=== PATIENT | female | born 1965 | race Caucasian/White ===

== ENCOUNTER → 2018-08-21 07:56 | Outpatient (CLI) | payer OTHER, SELFPAY ==
[2018-08-21 10:18] LABS: ALB/GLOB Ratio 1.2 RATIO (0.9-2.4); AST(SGOT) 23 U/L (15-37); Alanine Aminotransfer ALT/SGPT 54 U/L (13-56); Albumin, Serum 4.2 g/dL (3.2-5.0); Alkaline Phosphatase 75 U/L (45-117); Anion Gap 6 (5-15); BUN 17 mg/dL (7-18); BUN/Creat Ratio 21.7 RATIO (10-20); Calcium,Total 9.1 mg/dL (8.5-10.1); Chloride 105 mmol/L (98-107); Cholesterol 197 mg/dL (200); Creatinine, Serum 0.78 mg/dL (0.55-1.02); EST Glomerular Filtration Rate 81 mL/min (>60); Est Glom Filt Rate - Afr Amer 98 mL/min (>60); Globulin 3.5 g/dL (2.2-4.2); Glucose 92 mg/dL (74-106); High Density Lipoprotein 41 mg/dL; Potassium 3.9 mmol/L (3.5-5.1); Protein, Total 7.7 g/dL (6.4-8.2); Sodium Level 139 mmol/L (136-145); Triglycerides 243 mg/dL; Very Low Density Lipoprotein 49 mg/dL (5-40)
[2018-08-21 10:19] LABS: Hemoglobin A1c 5.9 % (4.2-6.3)
[2018-08-21 10:26] LABS: Microalbumin,Random Urine 6.2 mg/L (NO RANGE EST.)
== END ==
PROVIDERS: Family Provider Family Medicine; PCP Family Medicine; Referring Provider Family Medicine; Visit Provider Family Medicine
DX: E11.9 Type 2 diabetes mellitus without complications (principal); I10 Essential (primary) hypertension
CPT/HCPCS: 36415; 80053; 80061; 82043; 82570; 83036

== ENCOUNTER → 2018-09-12 10:02 | Outpatient (CLI) | payer OTHER, SELFPAY ==
--- NOTE | 2018-09-12 10:05 | BI_ITS ---
MAMMOGRAPHY - BILATERAL SCREENING REASON FOR EXAM: Female, 53 years old. Routine annual screening examination. PERTINENT HISTORY: Aunt with breast cancer. TECHNIQUE: Digital bilateral breast keyonna (3D mammographic acquisition) in the CC and MLO projections. 2-D mediolateral oblique (MLO) and craniocaudad (CC) views of both breasts were obtained. CAD: Full Field Digital Mammography with Computer Added Detection was performed. COMPARISON: Comparison is made with prior examination dated February 23, 2007. FINDINGS: Breast Composition: There are scattered areas of fibroglandular density. There are no dominant masses or suspicious calcifications. Stable appearance of a 6.9 mm well-defined nodule in the anterior superior lateral portion of the left breast with central decreased density suggestive of a small lymph node. Stable bilateral axillary lymph nodes. No other significant abnormalities are identified. BI/SCREENING MAMM (CAD), BILAT IMPRESSION: Stable bilateral screening mammogram. Yearly follow-up mammogram recommended. (A) ASSESSMENT CATEGORY: BIRADS Category 2: Benign. A letter regarding these results will be sent to the patient by the facility within 30 days. Approximately 10% of breast cancers are not detected by mammography. A normal mammogram should not delay biopsy of a clinically suspicious abnormality. [id number] Electronically Signed: Russ Holly MD at 14:22 EDT Tel [phone], Service support ,
== END ==
PROVIDERS: Family Provider Family Medicine; PCP Family Medicine; Referring Provider Family Medicine; Visit Provider Family Medicine
DX: Z12.31 Encounter for screening mammogram for malignant neoplasm of breast (principal)
CPT/HCPCS: 77063; 77067

== ENCOUNTER 2019-01-14 10:05 | Day surgery (SDC) | payer OTHER, SELFPAY ==
[2018-12-29 10:38] VITALS: BMI 25.1
[2019-01-14 10:31] VITALS: BP 149/97; PULSE 97; RESP 18; TEMP 36.3; O2SAT 99; BMI 24.4
[2019-01-14 10:57] LABS: Bedside Glucose 106 mg/dL (70-110)
--- NOTE | 2019-01-14 11:30 | IMM_PTH ---
PATIENT: PATRICK PHILIPPE LOC: EN U#:[id number] AGE/SX: 54/F ROOM: RE01/14/[address]: Dr. April Zeng MD : 1965 BED: DIS: 01/14/2019 SPEC #: [id number] RECD: 01/14/19 15:34 STATUS: LAKISHA REQ #: [id number] ALEJANDRA: 01/14/19 11:[address]: April Zeng DEPT: IMMUNOHISTOCHEMISTRY RECD BY: Milagros Marie ENTERED: 01/14/19 15:35 SP TYPE: IMMUNO OTHR DR: Dr. Bret Gomez MD Tissues: A - Stomach, NOS Procedures: H Pylori (initial) PHYSICIAN & INSTITUTION [place] [address] SPECIMEN INFORMATION: Tissue Source: A - Antrum biopsy Clinical Info: GERD, family history of colon CA Specimen Number: [id number] CPT code: 87401 METHODOLOGY: Deparaffinized sections of prefer/formalin-fixed tissue or PAP/DQ stained slides are incubated with monoclonal/polyclonal antibodies/oligonucleotide probes. Localization is made via biotin free immunoperoxidase method. Appropriate controls are performed and reacted as expected. Results on target cell population are indicated in the following table: RESULTS: ANTIBODY / CLONE RESULT Block A H Pylori (polyclonal) negative These tests were developed and their performance characteristics determined by [facility]. They may not have been cleared or approved by the U.S. Food and Drug Administration. The FDA has determined that such clearance or approval is not necessary. INTERPRETATION: A. Antrum biopsy: Negative for Helicobacter pylori organisms. SJ:ashly 01/15/19
--- NOTE | 2019-01-14 11:30 | EGD_PTH ---
PATIENT: PATRICK PHILIPPE LOC: EN U#:[id number] AGE/SX: 54/F ROOM: RE01/14/[address]: Dr. April Zeng MD : 1965 BED: DIS: 01/14/2019 SPEC #: [id number] RECD: 01/14/19 12:04 STATUS: LAKISHA YELENA #: [id number] ALEJANDRA: 01/14/19 11:[address]: April Zeng DEPT: SURGICAL PATHOLOGY RECD BY: Doyle Lyn ENTERED: 01/14/19 13:50 SP TYPE: EGD BIOPSY OT DR: Dr. Bret Gomez MD Tissues: A - Gastric mucous membrane B - Gastric mucous membrane C - Rectum, NOS D - Rectum, NOS Procedures: Special Stain Group II Surgery Specimen Level IV Alcian Blue/PAS (control) HEADER OPERATION: Colonoscopy, EGD ([facility] [place]) PRE-OP DIAGNOSIS: GERD, family history colon CA TISSUE SUBMITTED: A - Antrum biopsy for H. pylori and path, B - GE junction biopsy, C - Rectal polyp at 20 cm, D - Biopsy of rectal polyp #2 at 20 cm MICROSCOPIC DIAGNOSIS A. Antrum biopsy: Mild gastritis. See microscopic description and comment. B. GE junction, biopsy: A fragment of gastroesophageal mucosa with reactive changes. Intestinal metaplasia (goblet cell metaplasia) is not identified. See comment. C. Rectal polyp at 20 cm, biopsy: Tubular adenoma. D. Rectal polyp #2 at 20 cm, biopsy: Fragments of hyperplastic polyp. SJ:ashly 01/15/19 COMMENT A. The results of immunohistochemistry for Helicobacter pylori will be reported separately ([id number]). B. The specimen predominantly consists of squamous epithelium with a minute fragment of gastric mucosa. Alcian blue/PAS stain with matched control is used in the evaluation of the specimen. MICROSCOPIC DESCRIPTION Slides are reviewed. A. The specimen shows fragments of gastric mucosa with chronic inflammatory cell infiltrates in the lamina propria consisting of lymphocytes and plasma cells, consistent with mild chronic gastritis. GROSS DESCRIPTION A - Received in fixative is one container labeled with the patient's name and designated antral biopsy. The specimen consists of two irregular fragments of light le soft tissue that in aggregate measure 0.6 x 0.3 x 0.1 cm. The specimen is totally submitted in one cassette. B - Received in fixative is one container labeled with the patient's name and designated GE junction biopsy. The specimen consists of one irregular fragment of light le soft tissue that measures 0.4 x 0.3 x 0.1 cm. The specimen is totally submitted in one cassette. C - Received in fixative is one container labeled with the patient's name and designated rectal polyp. The specimen consists of a pink-red polyp measuring 1.2 x 1 x 0.6 cm. The apparent base is inked. The polyp is bisected and submitted entirely in one cassette. D - Received in fixative is one container labeled with the patient's name and designated biopsy of rectal polyp #2 at 20 cm. The specimen consists of multiple irregular fragments of light le soft tissue that in aggregate measure 1 x 0.4 x 0.1 cm. The specimen is totally submitted in one cassette. / MIKE:ashly 01/14/19 TC:1 CPT: 26382 x4, 14782
[2019-01-14 11:50] VITALS: BP 101/75; BP 149/97; PULSE 69; RESP 16; TEMP 36.2; O2SAT 100
--- NOTE | 2019-01-14 11:53 | OP.ENDO_ITS ---
01/14/2019 Bret Gomez [address] [place] [address] Re : Upper GI endoscopy procedure for Qi Irwin Dear Dr. Gomez This procedure was performed on December. My impressions and recommendations are as follows: Impressions : - Z-line irregular, 38 cm from the incisors. Biopsied. - 2 cm hiatal hernia. - Gastritis. Biopsied. - Normal examined duodenum. Recommendations : - Await pathology results. - Discharge patient to home. - Use Protonix (pantoprazole) 40 mg PO daily [duration]. OK to stop the ranitidine after a couple days of starting protonix. - Continue present medications. My findings are described in the full procedure note, which is enclosed. If I can be of further assistance, please feel free to contact me at Doctor phone number(s): , Work: . Sincerely, MD April Jesus MD 01/14/2019 11:52:33 AM This report has been signed electronically.
[2019-01-14 11:55] VITALS: BP 120/71; BP 149/97; PULSE 74; RESP 16; O2SAT 100
[2019-01-14 12:00] VITALS: BP 123/71; BP 149/97; PULSE 67; RESP 16; O2SAT 100
--- NOTE | 2019-01-14 12:01 | OP.ENDO_ITS ---
01/14/2019 Bret Gomez [address] [place] [address] Re : Colonoscopy procedure for Qi Irwin Dear Dr. Gomez This procedure was performed on December. My impressions and recommendations are as follows: Impressions : - One 10 mm polyp in the rectum, removed with a hot snare. Resected and retrieved. - One less than 5 mm polyp in the rectum, removed with a cold biopsy forceps. Resected and retrieved. - The examination was otherwise normal on direct and retroflexion views. Recommendations : - Discharge patient to home. - Await pathology results. - Repeat colonoscopy in 3 years for surveillance based on pathology results. - Continue present medications. My findings are described in the full procedure note, which is enclosed. If I can be of further assistance, please feel free to contact me at Doctor phone number(s): , Work: . Sincerely, MD April Jesus MD 01/14/2019 12:01:26 PM This report has been signed electronically.
[2019-01-14 12:05] VITALS: BP 126/79; BP 149/97; PULSE 69; RESP 16; TEMP 36.3; O2SAT 100
[2019-01-14 12:11] VITALS: BP 149/97
== END 2019-01-14 12:55 | disposition home or self-care (01) ==
LOC: EN 10:08 → AC 10:10
PROVIDERS: Family Provider Family Medicine; PCP Family Medicine; Referring Provider Surgery; Visit Provider Surgery
PROC: 0DJD8ZZ Inspection of Lower Intestinal Tract, Via Natural or Artificial Opening Endoscopic (ICD-10-PCS; CPT 45378; principal; 2019-01-14 11:25)
DX: K29.70 Gastritis, unspecified, without bleeding (principal); K44.9 Diaphragmatic hernia without obstruction or gangrene; K21.9 Gastro-esophageal reflux disease without esophagitis; D12.8 Benign neoplasm of rectum; K62.1 Rectal polyp; K57.30 Diverticulosis of large intestine without perforation or abscess without bleeding; I10 Essential (primary) hypertension; G25.81 Restless legs syndrome; E11.9 Type 2 diabetes mellitus without complications; F41.9 Anxiety disorder, unspecified; F32.9 Major depressive disorder, single episode, unspecified; Z78.0 Asymptomatic menopausal state; Z80.0 Family history of malignant neoplasm of digestive organs; Z79.84 Long term (current) use of oral hypoglycemic drugs; Z79.899 Other long term (current) drug therapy; Z87.891 Personal history of nicotine dependence
CPT/HCPCS: 43239; 45380; 45385; 82962; 88305; 88313; 88342; J7120

== ENCOUNTER 2019-09-18 20:55 | Emergency (ER) | payer OTHER, SELFPAY ==
[2019-09-18 20:55] VITALS: BP 161/91; PULSE 66; RESP 15; TEMP 36.4; O2SAT 93; BMI 25.5
--- NOTE | 2019-09-18 21:18 | CT_ITS ---
STUDY: CT ABDOMEN AND PELVIS WITH CONTRAST REASON FOR EXAM: Female, 54 years old. Right-sided abdominal pain nausea and diarrhea x1 week RADIATION DOSAGE (If Supplied By Facility): CTDIvol = ( 14.09 ) mGy, DLP = ( 735.34 ) mGycm TECHNIQUE: Transaxial images were obtained from the dome of the diaphragm to the symphysis pubis without oral contrast. IV 100mL [id number]-300 100ML was administered. Sagittal and coronal images were reconstructed. Individualized dose optimization techniques were used for this CT. COMPARISON: None. FINDINGS: There is a noncalcified nodule of the anterior right lower lobe measuring 4 mm, seen on image 8 of series 2. The visualized portions of the heart are within normal limits. Normal liver. Normal gallbladder and extrahepatic biliary system. Normal spleen. Normal pancreas. Normal bilateral adrenal glands. There is a subcentimeter right renal cyst. There is also a subcentimeter left renal cyst. Normal visualized stomach. Normal small intestine. There is scattered colonic diverticuli with no evidence of associated diverticulitis. The appendix is visualized and appears normal. There are calcified plaques of the abdominal aorta. Normal inferior vena cava. Normal retroperitoneum. Normal urinary bladder. There are large dense uterine calcifications consistent with degenerative fibroids. There is a small umbilical hernia containing fat. There are diffuse degenerative changes of the visualized thoracolumbar spine. CT/Abdomen/Pelvis W IV Cont ONLY IMPRESSION: 1. Noncalcified nodule of the anterior right lower lobe measuring 4 mm. Appropriate follow-up using Fleischner Society criteria is recommended. 2. Subcentimeter bilateral renal cysts. 3. Colonic diverticulosis with no evidence of associated diverticulitis. 4. Large dense uterine calcifications consistent with degenerative fibroids. 5. Small fat containing a follicle hernia. Electronically Signed: Jose Acosta MD at 22:16 EDT , Service support ,
--- NOTE | 2019-09-18 21:19 | ED.DCSUM_ITS ---
History of Present Illness Chief Complaint: Abd Pain Informant: Patient Onset: Days - 7 Context: Gradual Onset Timing: Continuous, Waxes and wanes Current Severity: Mild Maximum Severity: Moderate Narrative: Patient is evaluated for abdominal pain. She states been present for 1 week. It is an ache in her right upper quadrant but intermittently radiates across her abdomen and become sharp. She notes the pain is worse before she has a bowel movement. She is had associated diarrhea. She is had 3-4 episodes of diarrhea today. She denies any black or blood in her stool. She has associated nausea but no vomiting. She denies any associated chest pain, shortness of breath or urinary symptoms. She is menopausal. Patient denies any history of diverticulitis or pain like this before. She states she could not take it anymore it is why she came to the emergency room after week of symptoms. She states she has had decreased appetite but her symptoms are not affected by eating. Past Medical History - Allergies and Home Meds Allergies/Adverse Reactions: Allergies No Known Allergies Allergy (Verified 09/18/19 21:09) Primary Care Physician: Bret Gomez MD [Primary Care Provider] - Past Medical History: - - Hypertension, diabetes Surgical History: noncontributory, - - Left knee arthroscopic surgery Lives: Spouse/ Significant Other Smoking Status: Former smoker - Family History Maternal Family History: Family History (Last Updated 12/29/18 @ 10:37 by Kathy Flores) Mother Colon cancer CAD (coronary artery disease) Hypertension Aunt Colon cancer Family History: Reports: No pertinent history Paternal Family History: Family History (Last Updated 12/29/18 @ 10:37 by Kathy Flores) Mother Colon cancer CAD (coronary artery disease) Hypertension Aunt Colon cancer Family History: Reports: Heart Disease Review of Systems All systems negative except as indicated Gastrointestinal: Reports: Abdominal pain, Nausea, Diarrhea. Denies: Vomiting, Constipation Genitourinary: Denies: Dysuria Physical Exam Vital Signs/Narrative: Vital Signs Temp Pulse Resp BP Pulse Ox 09/18/19 20:55 97.5 F L 66 15 161/91 H 93 Inital Vital Signs reviewed: Yes General: Well nourished, Well developed, No Acute Distress Head: Normocephalic, Atraumatic Eyes: Perrl, EOMI ENT: Moist mucous membranes, No rhinorrhea Neck: Supple, Nontender Cardiovascular: Regular rate, Regular rhythm, No murmurs Respiratory: No distress, CTA bilaterally, Chest nontender Abdomen: Nontender, Nondistended, Tender - Mild, right upper quadrant, Hyp eractive bowel sounds. Negative for: Guarding, Rebound tenderness, Starkey's sign Back: Nontender, Normal Inspection. Negative for: CVA tenderness Extremities: Nontender, No edema Skin: Normal color, No rash Neurological: Alert, Oriented x3, Cranial nerves II-XII grossly intact, Normal Strength, Normal Sensation Psychological: Normal affect, Normal Mood Diagnostic/Tx/Re-eval Clinical Impression(s) from Imaging Studies Abdomen/Pelvis CT 09/18/19 21:18 IMPRESSION: 1. Noncalcified nodule of the anterior right lower lobe measuring 4 mm. Appropriate follow-up using Fleischner Society criteria is recommended. 2. Subcentimeter bilateral renal cysts. 3. Colonic diverticulosis with no evidence of associated diverticulitis. 4. Large dense uterine calcifications consistent with degenerative fibroids. 5. Small fat containing a follicle hernia. Electronically Signed: Jose Acosta MD at 22:16 EDT , Service support , Laboratory Data 09/18/19 09/18/19 09/18/19 21:15 21:15 22:05 WBC 8.1 RBC 4.94 Hgb 14.6 Hct 43.8 MCV 88.7 MCH 29.6 MCHC 33.3 RDW Std Deviation 37.2 RDW Coeff of Ollie 11.6 Plt Count 326 MPV 10.0 Immature Gran % (Auto) 0.200 Neut % (Auto) 54.6 Lymph % (Auto) 35.3 [place] % (Auto) 8.0 Eos % (Auto) 1.4 Baso % (Auto) 0.5 Absolute Neuts (auto) 4.4 Absolute Lymphs (auto) 2.86 Nucleated RBC % 0 Sodium 136 Potassium 3.8 Chloride 101 Carbon Dioxide 26.0 Anion Gap 9 BUN 14 Creatinine 0.87 Estim Creat Clear Calc 75.46 Est GFR (MDRD) Af Amer 87 Est GFR (MDRD) Non-Af 72 BUN/Creatinine Ratio 16.1 Glucose 105 Calcium 9.6 Total Bilirubin 0.60 Direct Bilirubin 0.11 AST 26 ALT 35 Alkaline Phosphatase 75 Total Protein 8.1 Albumin 4.6 Globulin 3.5 Lipase 144 Urine Color Yellow Urine Clarity Sl. Cloudy Urine pH 8.0 Ur Specific [place] 1.010 Urine Protein Negative Urine Glucose (UA) Normal Urine Ketones Negative Urine Occult Blood Negative Urine Nitrite Negative Urine Bilirubin Negative Urine Urobilinogen Normal Ur Leukocyte Esterase Negative Urine RBC 0 SEEN Urine WBC 0-5 SEEN Ur Squamous Epith Cells 0-5 SEEN Urine Bacteria 0 SEEN Urine Mucus 0 SEEN - Medical Decision Making Patient is evaluated for right upper quadrant abdominal pain and diarrhea. She appears nontoxic and in no acute distress. Vital signs are normal. Abdomen exam is relatively benign. She does actually have some tenderness over her right lateral lower ribs that is reproducible on palpation. CBC, CMP and UA are all normal. CT the abdomen and pelvis show some incidental findings but no acute infectious process. Patient is informed of lung nodule and need for routine outpatient follow-up. Patient expresses that she is very concerned that she might have an undiagnosed cancer as a cause of her symptoms. She is counseled that no obvious cancer is stable for outpatient follow-up. She is ins tructed to take [id number] Pepto-Bismol as needed for her diarrhea. I do not suspect an acutely infectious diarrhea she does not have any diarrhea while in the emergency room and has normal white blood cell count. More than likely her symptoms are viral. Patient is counseled on signs and symptoms requiring return to the emergency room. Patient verbalizes agreement and understand this plan. Patient discharged home in stable and improved condition. ED Disposition - Plan for ED Patient: Disposition: Home or Assisted Living Diagnosis: Right-sided chest wall pain, Abdominal pain, Diarrhea Instructions: Treating Diarrhea, ABDOMINAL PAIN, Unknown Cause, (Female), PULM ONARY NODULE, Solitary Prescriptions: Ondansetron [Zofran Odt] 4 mg PO Q8H PRN PRN #12 tab PRN Reason: Nausea Prescription Printed Referrals: Bret Gomez MD [Primary Care Provider] - Additional Instructions: The cause of your symptoms was not found today. Your lab work and CT looked normal. There was an incidental finding of a pulmonary nodule. This needs to be evaluated outpatient by your primary care doctor to follow and make sure that it does not turn into lung cancer. If your symptoms persist, you may also follow-up with your surgeon, Dr. Zeng, for further evaluation. Return to the emergency room if you develop worsening symptoms, fever or blood in your stool.
[2019-09-18] MEDS: 0.9% Normal Saline 1,000 ML 1000 ML IV (21:27)
[2019-09-18 21:32] LABS: Absolute Lymphocyte Count 2.86 X10^3/uL (0.83-4.51); Absolute Neutrophil Count 4.4 X10^3/uL (2.0-7.7); Basophil# 0.04 X10^3/uL; Basophil% 0.5 % (0-1); Eosinophil# 0.11 X10^3/uL; Eosinophils% 1.4 % (0-5); Hematocrit 43.8 % (37-47); Hemoglobin 14.6 g/dL (12.0-15.0); Lymphocyte # 2.86 X10^3/ul (4.0); Lymphocyte % 35.3 % (19-41); Mean Corp Hgb Conc 33.3 g/dL (32-36); Mean Corpuscular Hgb 29.6 pg (27.0-32.0); Mean Corpuscular Volume 88.7 fL (81-99); Monocyte# 0.65 X10^3/uL; NRBC Flagged by Analyzer 0 % (0-5); Neutrophil # 4.42 X10^3/uL (2.7-7.7); Neutrophil % 54.6 % (47-70); Platelet Count 326 K/mm3 (150-450); RBC Distribution Width CV 11.6 % (11.6-14.6); RBC Distribution Width SD 37.2 fl (35.1-43.9); Red Blood Count 4.94 M/mm3 (4.2-5.4); White Blood Count 8.1 K/mm3 (4.4-11.0)
[2019-09-18 21:59] LABS: AST(SGOT) 26 U/L (15-37); Alanine Aminotransfer ALT/SGPT 35 U/L (13-56); Albumin, Serum 4.6 g/dL (3.2-5.0); Alkaline Phosphatase 75 U/L (45-117); Anion Gap 9 (5-15); BUN 14 mg/dL (7-18); BUN/Creat Ratio 16.1 RATIO (10-20); Bilirubin, Direct 0.11 mg/dL (0.00-0.30); Calcium,Total 9.6 mg/dL (8.5-10.1); Chloride 101 mmol/L (98-107); Creatinine, Serum 0.87 mg/dL (0.55-1.02); EST Glomerular Filtration Rate 72 mL/min (>60); Est Glom Filt Rate - Afr Amer 87 mL/min (>60); Estimated Creatinine Clearance 75.46 ml/min; Globulin 3.5 g/dL (2.2-4.2); Glucose 105 mg/dL (74-106); Lipase 144 U/L (73-393); Potassium 3.8 mmol/L (3.5-5.1); Protein, Total 8.1 g/dL (6.4-8.2); Sodium Level 136 mmol/L (136-145)
[2019-09-18 22:10] LABS: Bacteria 0 SEEN /hpf (None Seen); Mucous, Urine 0 SEEN /hpf (<or=2+); Red Blood Cells-Urine 0 SEEN /hpf (0-5)
[2019-09-18 22:17] LABS: Color, Urine Yellow (Yellow); Glucose, Dipstick Normal (Normal); Ketone-Dipstick Negative (Negative); Leukocyte Esterase-Dipstick Negative /ul (Negative); Nitrite-Dipstick Negative (Negative); Occult Blood-Urine Negative /ul (Negative); Protein-Dipstick Negative (Negative); Urine Bilirubin Dipstick Negative (Negative); Urine Clarity Sl. Cloudy (Clear); Urine Urobilinogen Normal (Normal)
[2019-09-18 22:30] LABS: Squamous Epithelial Cells - UA 0-5 SEEN /hpf (5-10); White Blood Cells 0-5 SEEN /hpf (0-5)
[2019-09-18 23:15] VITALS: RESP 18
== END 2019-09-18 23:16 | disposition home or self-care (01) ==
PROVIDERS: Emergency Provider Emergency Medicine; Family Provider Family Medicine; PCP Family Medicine
DX: R10.11 Right upper quadrant pain (principal); R07.89 Other chest pain; R19.7 Diarrhea, unspecified; R91.1 Solitary pulmonary nodule; I10 Essential (primary) hypertension; E11.9 Type 2 diabetes mellitus without complications; Z79.84 Long term (current) use of oral hypoglycemic drugs; Z79.899 Other long term (current) drug therapy; Z87.891 Personal history of nicotine dependence
CPT/HCPCS: 74177; 80048; 80076; 81001; 83690; 85025; 96360; 99284; J7030; Q9967; A4216

== ENCOUNTER → 2019-12-06 15:45 | Outpatient (CLI) | payer OTHER, SELFPAY ==
[2019-12-09 14:12] LABS: HPV Reflexed? NOT INDICATED
== END ==
PROVIDERS: Family Provider Family Medicine; PCP Family Medicine; Referring Provider Nurse Practitioner Adult Health; Visit Provider Nurse Practitioner Adult Health
DX: Z01.419 Encounter for gynecological examination (general) (routine) without abnormal findings (principal)
CPT/HCPCS: 88175; G0145

== ENCOUNTER → 2019-12-10 08:11 | Outpatient (CLI) | payer OTHER, SELFPAY ==
[2019-12-10 10:19] LABS: Absolute Lymphocyte Count 1.54 X10^3/uL (0.83-4.51); Absolute Neutrophil Count 2.8 X10^3/uL (2.0-7.7); Basophil# 0.02 X10^3/uL; Basophil% 0.4 % (0-1); Eosinophil# 0.11 X10^3/uL; Eosinophils% 2.3 % (0-5); Hematocrit 41.2 % (37-47); Hemoglobin 13.4 g/dL (12.0-15.0); Lymphocyte # 1.54 X10^3/ul (4.0); Lymphocyte % 31.8 % (19-41); Mean Corp Hgb Conc 32.5 g/dL (32-36); Mean Corpuscular Hgb 28.8 pg (27.0-32.0); Mean Corpuscular Volume 88.4 fL (81-99); Mean Platelet Vol. 10.5 fl (6.2-12.0); Monocyte# 0.37 X10^3/uL; Monocyte% 7.6 % (0-10); NRBC Flagged by Analyzer 0 % (0-5); Neutrophil # 2.78 X10^3/uL (2.7-7.7); Neutrophil % 57.5 % (47-70); Platelet Count 301 K/mm3 (150-450); RBC Distribution Width CV 11.8 % (11.6-14.6); RBC Distribution Width SD 37.6 fl (35.1-43.9); Red Blood Count 4.66 M/mm3 (4.2-5.4); White Blood Count 4.8 K/mm3 (4.4-11.0)
[2019-12-10 10:44] LABS: ALB/GLOB Ratio 1.2 RATIO (0.9-2.4); AST(SGOT) 28 U/L (15-37); Alanine Aminotransfer ALT/SGPT 89 U/L (13-56); Albumin, Serum 4.1 g/dL (3.2-5.0); Alkaline Phosphatase 82 U/L (45-117); Anion Gap 5 (5-15); BUN 17 mg/dL (7-18); BUN/Creat Ratio 21.4 RATIO (10-20); Calcium,Total 9.4 mg/dL (8.5-10.1); Chloride 106 mmol/L (98-107); Cholesterol 188 mg/dL (200); Creatinine, Serum 0.79 mg/dL (0.55-1.02); EST Glomerular Filtration Rate 79 mL/min (>60); Est Glom Filt Rate - Afr Amer 96 mL/min (>60); Globulin 3.3 g/dL (2.2-4.2); Glucose 96 mg/dL (74-106); High Density Lipoprotein 48 mg/dL; Microalbumin,Random Urine 5.3 mg/L (NO RANGE EST.); Microalbumin:Creatinine Ratio 4.4 mg/g CRE (<30 mg/g CRE); Potassium 3.8 mmol/L (3.5-5.1); Protein, Total 7.4 g/dL (6.4-8.2); Sodium Level 139 mmol/L (136-145); Thyroid Stim Hormone (TSH) 0.69 uIU/mL (0.358-3.74); Triglycerides 149 mg/dL; Very Low Density Lipoprotein 30 mg/dL (5-40)
== END ==
PROVIDERS: PCP Family Medicine; Referring Provider Family Medicine; Visit Provider Family Medicine
DX: E11.9 Type 2 diabetes mellitus without complications (principal); I10 Essential (primary) hypertension; R91.1 Solitary pulmonary nodule
CPT/HCPCS: 36415; 80053; 80061; 82043; 82570; 84443; 85025

== ENCOUNTER → 2019-12-10 14:11 | Outpatient (CLI) | payer OTHER, SELFPAY ==
--- NOTE | 2019-12-10 14:26 | BI_ITS ---
MAMMOGRAPHY - BILATERAL SCREENING 3-D TOMOSYNTHESIS REASON FOR EXAM: Female, 54 years old. Routine annual screening mammogram. PERTINENT HISTORY: No significant family history. TECHNIQUE: 2-D mammograms and 3-D Tomosynthesis of the breast (s) were performed. CAD was performed. COMPARISON: September 12, 2018, September 02, 2028 FINDINGS: The breast composition is almost entirely fat. Scattered benign calcifications are seen. No dense spiculated masses or suspicious microcalcifications are identified. No architectural distortion is identified. There is no skin thickening or retraction. Stable lymph nodes. There has been no significant change since the prior study. BI/SCREEN MAMM (CAD) W/SANDY BILAT IMPRESSION: No mammographic signs of malignancy. Routine yearly mammograms recommended. ASSESSMENT CATEGORY: BIRADS Category 2: Benign. A letter regarding these results will be sent to the patient by the facility within 30 days. FOLLOW UP RECOMMENDATION: Yearly follow up mammogram recommended. (A) Approximately 10% of breast cancers are not detected by mammography. A normal mammogram should not delay biopsy of a clinically suspicious abnormality. Electronically Signed: Pieter Ricardo MD at 16:04 EST , Service support ,
== END ==
PROVIDERS: Family Provider Family Medicine; PCP Family Medicine; Referring Provider Family Medicine; Visit Provider Family Medicine
DX: Z12.31 Encounter for screening mammogram for malignant neoplasm of breast (principal)
CPT/HCPCS: 77063; 77067

== ENCOUNTER → 2019-12-16 10:56 | Outpatient (CLI) | payer OTHER, SELFPAY ==
[2019-12-16 12:29] LABS: Erythrocyte Sedimentation Rate 7 mm/hr (0-30)
[2019-12-16 13:14] LABS: AST(SGOT) 33 U/L (15-37); Alanine Aminotransfer ALT/SGPT 103 U/L (13-56); Albumin, Serum 4.5 g/dL (3.2-5.0); Alkaline Phosphatase 79 U/L (45-117); CRP < 2.90 mg/L (0.0-3.0); GGTP 118 U/L (5-55); Globulin 3.4 g/dL (2.2-4.2); Protein, Total 7.9 g/dL (6.4-8.2)
[2019-12-16 13:41] LABS: Hepatitis C Antibody Non-Reactive (Nonreactive)
== END ==
PROVIDERS: PCP Family Medicine; Referring Provider Family Medicine; Visit Provider Family Medicine
DX: R94.5 Abnormal results of liver function studies (principal); R19.7 Diarrhea, unspecified
CPT/HCPCS: 36415; 80076; 82977; 85652; 86140; 86803

== ENCOUNTER 2019-12-16 17:26 | Emergency (ER) | payer OTHER, SELFPAY ==
[2019-12-16 17:27] VITALS: BP 151/83; PULSE 71; RESP 16; TEMP 36.6; O2SAT 100; BMI 56.3
--- NOTE | 2019-12-16 17:48 | ED.DCSUM_ITS ---
History of Present Illness Chief Complaint: Abn Labs Detail of Chief Complaint: abdominal pain Informant: Patient - Abdominal Pain/Flank Pain Onset: Month(s) - multiple Context: Gradual Onset Timing: Continuous Quality: Burning Location: Diffuse - periumbilical, Epigastric - mostly Current Severity: Moderate Maximum Severity: Moderate Worsened by: Nothing Relieved by: Nothing - dicyclomine was helping but not now - Nausea/Vomiting/Emesis GI Symptom: Negative for: Nausea, Vomiting - Diarrhea/Melena/Hematochezia GI Symptom: Diarrhea. Negative for: Melena, Hematochezia Onset: Month(s) Stool Quality: Watery, - - +tenesmus. Negative for: Mucous, Black, Maroon, EUSEBIA per rectum Associated Symptoms: Negative for: Dysuria, Frequency, Hematuria, Urgency Narrative: Patient has been to her doctor several times for this problem. She had some blood work done around a week ago that showed an elevated ALT around 86, just mildly elevated. She had some repeat blood work done this morning that showed that it went up a little, but she did not know this yet, did not receive a call back from her doctor, her symptoms were felt worse this week compared to the last several months so she presents to the emergency department for the same symptoms she has had for the last several months without any thing that is different. She has been having watery diarrhea all day, every day, for the last couple days, but it has been present for months. She was ordered to have some stool studies done and has a specimen cup at home but has yet to collect and provide the specimen even though she has been having diarrhea all day. She was planning on doing it in the morning tomorrow. She was unable to talk with the doctor jahaira even though she tried. The patient further states that 11 months ago her mother of cancer and she was very depressed and had a very difficult time dealing with it, she was drinking alcohol, but stopped that now and the onset of the symptoms seem to coincide with all of that. She states that her PCP has considered the possibility of IBS as the reason for her symptoms. - Past Medical History (1) Hypertension Status: Chronic Past Medical History - Allergies and Home Meds Allergies/Adverse Reactions: Allergies No Known Allergies Allergy (Verified 12/16/19 17:27) Primary Care Physician: Bret Gomez MD [Primary Care Provider] - Surgical History: noncontributory - No abdominal surgeries, - - Left knee arthroscopic surgery Lives: Alone Smoking Status: Current every day smoker - Family History Maternal Family History: Family History (Last Updated 12/29/18 @ 10:37 by Kathy Flores) Mother Colon cancer CAD (coronary artery disease) Hypertension Aunt Colon cancer Family History: Reports: No pertinent history Paternal Family History: Family History (Last Updated 12/29/18 @ 10:37 by Kathy Flores) Mother Colon cancer CAD (coronary artery disease) Hypertension Aunt Colon cancer Family History: Reports: Heart Disease Review of Systems General: Denies: Chills, Fever, Sweats Eyes: Denies: Visual changes - bilaterally, Diplopia ENT: Denies: Rhinorrhea, Sore throat Cardiovascular: Denies: Chest pain, Palpitations Respiratory: Denies: Dyspnea, Cough, Dyspnea on exertion Gastrointestinal: Reports: Abdominal pain, Diarrhea, - - Tenesmus. No mucus.. Denies: Nausea, Vomiting, Melena, Hematochezia Genitourinary: Denies: Dysuria, Hematuria, Frequency Musculoskeletal: Denies: Neck pain, Back pain, Swelling, Extremity Pain Skin: Denies: Rash, Wounds Neurological: Denies: Headache, Weakness, Numbness Psych: Reports: Anxiety Physical Exam Vital Signs/Narrative: Vital Signs Temp Pulse Resp BP Pulse Ox 12/16/19 17:27 97.8 F 71 16 151/83 H 100 Inital Vital Signs reviewed: Yes General: Well nourished, Well developed, No Acute Distress Head: Normocephalic, Atraumatic Eyes: Perrl, EOMI ENT: Moist mucous membranes, No rhinorrhea Neck: Supple, Nontender Cardiovascular: Regular rate, Regular rhythm, No murmurs Respiratory: No distress, CTA bilaterally, Chest nontender Abdomen: Soft, Nondistended, Normal bowel sounds, Tender - Mild, epigastrium only. Negative for: Hepatomegaly, Splenomegaly Back: Nontender, Normal Inspection. Negative for: CVA tenderness Extremities: Nontender, No edema Skin: Normal color, No rash Neurological: Alert, Oriented x3, Cranial nerves II-XII grossly intact, Normal Strength, Normal Sensation, Normal Gait Psychological: Normal Mood, - - A little anxious Diagnostic/Tx/Re-eval - Medical Decision Making I reviewed the patient's labs, she had them done 6 days ago and some of them repeated today. Her ALT had previously been normal, was 89, 6 days ago and today was 103. A GGT was sent and is 118 which is slightly elevated as well. The rest of her liver enzymes are normal. Her abdominal exam is very benign, she does not examine like acute cholecystitis and she has a white blood count today that is in the fours with no leftward shift, supporting this. IBS would certainly be in the differential diagnosis in her symptoms sound intestinal. I gave her a GI cocktail and an Ultram here and she states she feels much better. I ordered stool studies, but although she has been having diarrhea all day, she could not produce any bowel movement here in the emergency department during her several-our visit. She already has prescriptions for some type of stool studies, she has a collection kit at home, she is comfortable going home and doing that as her doctor prescribed. I discussed with the on-call physician who happened to be Dr. Rosanna campo, Dr. Gomez was not available, I discussed this with him and he will pass the message along, patient is advised to follow-up. He agrees with this plan as does the patient. I will give her a prescription for a few Ultram. ED Disposition - Plan for ED Patient: Disposition: Home or Assisted Living Diagnosis: Diffuse abdominal pain, Chronic diarrhea Instructions: EPIGASTRIC PAIN (Uncertain cause), DIET, Vomiting or Diarrhea [6yr-Adult], Treating Diarrhea Prescriptions: traMADol [Ultram] 50 mg PO Q4H PRN PRN 3 Days #12 tablet PRN Reason: Pain Transmission Status: Sent to [id number] Referrals: Bret Gomez MD [Primary Care Provider] - 3-5 Days
[2019-12-16] MEDS: traMADol 50 MG Tablet PO (17:56)
[2019-12-16] MEDS: Mag Hydrox/Al Hydrox/Simeth 30 ML UDC PO (17:57)
[2019-12-16 19:17] VITALS: RESP 18
== END 2019-12-16 19:18 | disposition home or self-care (01) ==
PROVIDERS: Emergency Provider Emergency Medicine; PCP Family Medicine
DX: R10.84 Generalized abdominal pain (principal); K52.9 Noninfective gastroenteritis and colitis, unspecified; F41.9 Anxiety disorder, unspecified; I10 Essential (primary) hypertension; Z79.899 Other long term (current) drug therapy; F17.200 Nicotine dependence, unspecified, uncomplicated
CPT/HCPCS: 99283

== ENCOUNTER → 2020-01-01 08:48 | Outpatient (CLI) | payer OTHER, SELFPAY ==
[2019-12-16 17:27] VITALS: BMI 56.3
--- NOTE | 2020-01-01 08:29 | US_ITS ---
STUDY: ABDOMINAL ULTRASOUND - RIGHT UPPER QUADRANT REASON FOR VISIT: Female, 54 years old RUQ PAIN INTERMITTENT X 3 WEEKS TECHNIQUE: Ultrasound evaluation of the right upper quadrant was performed with real-time and static stahl-scale imaging. TECHNICAL QUALITY: Adequate. COMPARISON: None. FINDINGS: Liver: The liver measures 15 cm. There is increased echogenicity of the liver. The bile ducts are within normal limits. There is hepatic color flow. The direction of portal flow is hepatopetal. There is no demonstrated mass lesion. Gallbladder: Normal distended gallbladder. The gallbladder wall measures 2.4 mm. There is a negative sonographic Starkey''s sign. There is no pericholecystic fluid. Tiny polyp measures 2.5 mm. No shadowing calculi. Common Bile Duct (C.B.D.): The common bile duct measures 2.7 mm. Pancreas: There is increased echogenicity of the pancreas. There is no demonstrated pancreatic mass or cyst. Right Kidney: Normal size of the right kidney. The right kidney measures 10.2 x 4.6 x 3.4 cm. Normal renal cortex. The right cortex measures 1.5 cm. There is no demonstrated renal mass or cyst. There is no right hydronephrosis. US/Abdomen Limited IMPRESSION: 1. No gallstones or biliary obstruction. 2. Tiny (2.5 mm) gallbladder polyp. 3. Increased echogenicity of the liver is nonspecific but most commonly associated with hepatic steatosis. Electronically Signed: Jimbo Doss MD (Brooks) at 14:44 EST , Service support ,
== END ==
PROVIDERS: PCP Family Medicine; Referring Provider Family Medicine; Visit Provider Family Medicine
DX: R10.11 Right upper quadrant pain (principal)
CPT/HCPCS: 76705

== ENCOUNTER → 2020-01-05 10:21 | Outpatient (CLI) | payer OTHER, SELFPAY ==
[2019-12-16 17:27] VITALS: BMI 56.3
[2020-01-05 12:58] LABS: AST(SGOT) 17 U/L (15-37); Alanine Aminotransfer ALT/SGPT 42 U/L (13-56); Albumin, Serum 4.6 g/dL (3.2-5.0); Alkaline Phosphatase 70 U/L (45-117); Bilirubin, Direct 0.08 mg/dL (0.00-0.30); GGTP 80 U/L (5-55); Globulin 3.6 g/dL (2.2-4.2); Lipase 140 U/L (73-393); Protein, Total 8.2 g/dL (6.4-8.2)
[2020-01-06 09:18] LABS: Internal QC Validated? YES +Cl - CLEAR BKGD; Monotest Negative (Negative)
[2020-01-06 16:08] LABS: Endomysial Antibody IgA Negative (Negative)
[2020-01-06 17:04] LABS: Immunoglobulin A 148 mg/dL (87-352); t-Transglutaminase IgA <2 U/mL (0-3)
== END ==
PROVIDERS: PCP Family Medicine; Referring Provider Family Medicine; Visit Provider Family Medicine
DX: R19.7 Diarrhea, unspecified (principal)
CPT/HCPCS: 36415; 80076; 82784; 82977; 83516; 83690; 86255; 86308

== ENCOUNTER → 2020-01-10 | Outpatient (CLI) | payer OTHER, SELFPAY ==
[2019-12-16 17:27] VITALS: BMI 56.3
[2020-01-13 15:32] LABS: Fats, Neutral Normal (.); Fats, Total Normal (.)
== END | disposition home or self-care (01) ==
LOC: LABSPEC 14:23
PROVIDERS: PCP Family Medicine; Referring Provider Family Medicine; Visit Provider Family Medicine
DX: R19.7 Diarrhea, unspecified (principal)
CPT/HCPCS: 82705; 83986

== ENCOUNTER → 2021-01-17 11:44 | Outpatient (CLI) | payer OTHER, SELFPAY ==
[2021-01-17 15:11] LABS: Absolute Lymphocyte Count 1.51 X10^3/uL (0.83-4.51); Absolute Neutrophil Count 3.6 X10^3/uL (2.0-7.7); Basophil# 0.02 X10^3/uL; Basophil% 0.4 % (0-1); Eosinophil# 0.12 X10^3/uL; Eosinophils% 2.1 % (0-5); Hemoglobin 13.5 g/dL (12.0-15.0); Lymphocyte # 1.51 X10^3/ul (4.0); Lymphocyte % 26.7 % (19-41); Mean Corp Hgb Conc 32.1 g/dL (32-36); Mean Corpuscular Hgb 28.7 pg (27.0-32.0); Mean Corpuscular Volume 89.2 fL (81-99); Mean Platelet Vol. 10.4 fl (6.2-12.0); Monocyte# 0.36 X10^3/uL; Monocyte% 6.4 % (0-10); NRBC Flagged by Analyzer 0 % (0-5); Neutrophil # 3.62 X10^3/uL (2.7-7.7); Platelet Count 320 K/mm3 (150-450); RBC Distribution Width CV 12.1 % (11.6-14.6); RBC Distribution Width SD 39.7 fl (35.1-43.9); Red Blood Count 4.71 M/mm3 (4.2-5.4); White Blood Count 5.7 K/mm3 (4.4-11.0)
[2021-01-17 16:49] LABS: ALB/GLOB Ratio 1.2 RATIO (0.9-2.4); AST(SGOT) 21 U/L (15-37); Alanine Aminotransfer ALT/SGPT 38 U/L (13-56); Albumin, Serum 4.3 g/dL (3.2-5.0); Alkaline Phosphatase 81 U/L (45-117); Anion Gap 9 (5-15); BUN 17 mg/dL (7-18); CRP < 2.90 mg/L (0.0-3.0); Calcium,Total 9.2 mg/dL (8.5-10.1); Chloride 103 mmol/L (98-107); Creatinine, Serum 0.81 mg/dL (0.55-1.02); EST Glomerular Filtration Rate 77 mL/min (>60); Est Glom Filt Rate - Afr Amer 94 mL/min (>60); GGTP 56 U/L (5-55); Globulin 3.6 g/dL (2.2-4.2); Glucose 87 mg/dL (74-106); Lipase 151 U/L (73-393); Potassium 3.5 mmol/L (3.5-5.1); Protein, Total 7.9 g/dL (6.4-8.2); Sodium Level 137 mmol/L (136-145); Thyroid Stim Hormone (TSH) 1.09 uIU/mL (0.358-3.74)
== END ==
PROVIDERS: PCP Family Medicine; Referring Provider Family Medicine; Visit Provider Family Medicine
DX: E11.9 Type 2 diabetes mellitus without complications (principal); R10.11 Right upper quadrant pain
CPT/HCPCS: 36415; 80053; 82977; 83036; 83690; 84443; 85025; 86140

== ENCOUNTER → 2021-01-19 10:44 | Outpatient (CLI) | payer OTHER, SELFPAY ==
--- NOTE | 2021-01-19 10:46 | US_ITS ---
STUDY: ABDOMINAL ULTRASOUND - RIGHT UPPER QUADRANT REASON FOR VISIT: Female, 56 years old post-prandial pain: liver, GB, pancreas, duodenum TECHNIQUE: Ultrasound evaluation of the right upper quadrant was performed with real-time and static stahl-scale imaging. TECHNICAL QUALITY: Adequate. COMPARISON: Comparison is made with prior study dated 01/01/2020. FINDINGS: Liver: The liver measures 13.8 cm. There is mild increased echogenicity consistent with mild fatty infiltration. The bile ducts are within normal limits. There is hepatic color flow. The direction of portal flow is hepatopetal. There is no demonstrated mass lesion. Gallbladder: Normal distended gallbladder. The gallbladder wall measures 3 mm. There is a negative sonographic Starkey''s sign. There is no pericholecystic fluid. There are no gallstones. The previously seen gallbladder polyp is not visualized at this time. Common Bile Duct (C.B.D.): The common bile duct measures 4 mm. Pancreas: Normal size of the head, body and tail of the pancreas. There is normal echogenicity of the pancreas. There is no demonstrated pancreatic mass or cyst. Right Kidney: Normal size of the right kidney. The right kidney measures 10.6 cm x 5.4 cm x 4.2 cm. Normal renal cortex. The right cortex measures 1.3 cm. There is no demonstrated renal mass or cyst. There is no right hydronephrosis. US/Abdomen Limited IMPRESSION: Normal right upper quadrant ultrasound examination. The previously seen gallbladder polyp is not seen at this time. Electronically Signed: Russ Holly MD at 12:22 EST , Service support ,
== END ==
PROVIDERS: PCP Family Medicine; Referring Provider Family Medicine; Visit Provider Family Medicine
DX: R10.11 Right upper quadrant pain (principal)
CPT/HCPCS: 76705

== ENCOUNTER → 2021-01-26 11:00 | Outpatient (CLI) | payer OTHER, SELFPAY ==
--- NOTE | 2021-01-26 11:02 | NM_ITS ---
CLINICAL: 56-year-old female with reported history of abdominal pain and nausea. RADIONUCLIDE HEPATOBILIARY SCINTIGRAPHY COMPARISON: Abdominal ultrasound report 01/19/2021 FINDINGS: Following the intravenous administration of 5.2 mCi of 99m Tc Mebrofenin, hepatobiliary images reveal: 1. Relatively prompt and homogeneous radiopharmaceutical concentration is noted by a normal sized liver. No parenchymal defects are identified. 2. Gallbladder activity is identified at 15 minutes post radiopharmaceutical administration. 3. Small intestinal tract is observed at by 60 minutes following tracer injection. 4. Washout of the radiopharmaceutical by the hepatic parenchyma appears qualitatively normal. Cholecystokinin (0.02 ug/kg) was administered intravenously over a 30-minute period. The post CCK gallbladder ejection fraction calculated at 20 minutes following Cholecystokinin administration was noted to be 7.0 % (normal greater than 35%). OK/Hepatobilliary Img w/Pharm Int IMPRESSION: 1. ABNORMAL 99m Tc Mebrofenin hepatobiliary imaging examination with Cholecystokinin. A. A gallbladder ejection fraction calculated to be less than 35% following the administration of Cholecystokinin is consistent with the presence of functional hepatobiliary disease (gallbladder and/or sphincter of Oddi dyskinesia) and/or organic hepatobiliary disease (chronic acalculous cholecystitis and/or cystic duct syndrome) in patients with intermediate to high pretest probabilities of hepatobiliary illness. (Loren Staley et al, Journal of Nuclear Medicine 32:1695, 1991). Electronically Signed: Jairo Busch DO at 7:39 EST Tel , Service support ,
== END ==
PROVIDERS: PCP Family Medicine; Referring Provider Family Medicine; Visit Provider Family Medicine
DX: R10.11 Right upper quadrant pain (principal)
CPT/HCPCS: 78227; A9537; J2805

== ENCOUNTER 2021-02-08 12:30 | Day surgery (SDC) | payer OTHER, SELFPAY ==
[2021-02-06 12:51] VITALS: BMI 26.4
--- NOTE | 2021-02-08 | GALL_PTH ---
PATIENT: PATRICK PHILIPPE LOC: [facility] – [place] U#:[id number] AGE/SX: 56/F ROOM: RE02/08/[address]: Dr. April Zeng MD : 1965 BED: DIS: 02/08/2021 SPEC #: [id number] RECD: 02/09/21 07:41 STATUS: LAKISHA REEryn #: [id number] ALEJANDRA: 02/08/21 00:[address]: April Zeng DEPT: SURGICAL PATHOLOGY RECD BY: Doyle Lyn ENTERED: 02/09/21 08:06 SP TYPE: STEPHANIE CHOI DR: Dr. Bret Gomez MD Tissues: Gallbladder, NOS Procedures: Surgery Specimen Level III HEADER OPERATION: Laparoscopic cholecystectomy with IOC PRE-OP DIAGNOSIS: Biliary dyskinesia TISSUE SUBMITTED: Gallbladder MICROSCOPIC DIAGNOSIS Gallbladder, cholecystectomy: Mild chronic cholecystitis and focal cholesterolosis. No stones are identified in the container or in the gallbladder. SJ:ashly 02/12/2021 MICROSCOPIC DESCRIPTION Slides are reviewed. GROSS DESCRIPTION Received is one container labeled with the patient's name and designated gallbladder. The specimen consists of a gallbladder measuring 7 x 3 x 3 cm. The external surface is smooth and glistening. Focally, it is granular, hemorrhagic and contains cautery artifact. The lumen of the gallbladder contains yellow-green mucoid bile and no calculi. The mucosa is bile-stained and without any mass lesions. The gallbladder wall averages 0.2 cm in thickness and is free of mass lesions. Information Systems Coordinator sections of the gallbladder and the cystic duct at margin of resection are submitted in one cassette. / AM:ashly 02/09/21 TC:3 CPT: 38799
--- NOTE | 2021-02-08 06:00 | HP_ITS ---
Intake Vital Signs 02/06/21 Height 5 ft 9 in 02/06/21 Weight: 179 lb 02/06/21 BMI 26.4 02/06/21 BP 151/83 H 02/06/21 Blood Pressure Location Rt brachial 02/06/21 Position Sitting 02/06/21 Respiration 18 Intake Visit Reasons: Gallbladder Chief Complaint: gallbladder Instructor Private Required: No Allergies metronidazole Allergy (Mild, Verified 02/06/21 12:41) Rash Medications Lisinopril/Hydrochlorothiazide [Zestoretic 20/ Tablet] 1 tab PO DAILY 06/11/14 [History Confirmed 12/16/19] multivitamin 1 tab PO DAILY 02/06/21 [History Confirmed 02/06/21] omeprazole 40 mg capsule,delayed release 40 mg PO QDAY #30 cap 02/06/21 [Rx Confirmed 02/06/21] wheat dextrin 5 gram/7.4 gram oral powder g PO 02/06/21 [History Confirmed 02/06/21] PFSH Medical History Chest pain (Acute) Hypertension (Chronic) Diabetes (Acute) Surgical History S/P knee surgery (Acute) Family History Mother Colon cancer CAD (coronary artery disease) Hypertension Aunt Colon cancer Social History (Updated 02/06/21 @ 13:[address] April Zeng MD) Smoking Status: Current every day smoker alcohol intake: current alcohol intake frequency: holidays/special occasions only HPI HPI HPI: PATRICK PHILIPPE, is a 56 F who presents to the office today for HPI HPI Surgical H&P: Yes HPI: PATRICK PHILIPPE, is a 56 F who presents to the office today for biliary dyskinesia due to ejection fraction of 7% on her HIDA scan. Patient states she has been having issues with right upper quadrant pain daily initially started last year but did seem to get worse again in November after she had Covid. Patient also states she has heartburn daily. Patient's ultrasound was normal patient's HIDA scan showed ejection fraction of 7%. Patient also had normal LFTs. ROS General General: Yes fatigue; no weight change, appetite, colon cancer, breast cancer or weakness HEENT HEENT: No difficulty swallowing, eye injury, eye surgery, swollen glands or hoarseness Endo Endocrine: Yes diabetes mellitus; no thyroid disease, thyroid cancer, Hair loss, heat intolerance or cold intolerance Skin Skin: No rash or changing moles Breast Breast: No left breast lump, right breast lump, nipple discharge, breast pain, abnormal mammogram, abnormal US or breast enlargement Musc Musculoskeletal: Yes back problems and arthritis; no rheumatoid arthritis, gout or joint pain Cardio Cardiovascular: Yes high blood pressure; no pacemaker, heart disease, atrial fibrillation, heart attack, heart stent, palpitations, shortness of breat with exertion or chest pain Psych Psychiatric: Yes anxiety; no depression or hearing voices Resp Respiratory: No shortness of breath, No sleep apnea, No cough, No COPD, No asthma, No emphysema, No wheezing Gastro Gastrointestinal: Yes abdominal pain, Yes nausea or vomiting, Yes diarrhea, No constipation, No blood in stool, No acid reflux, Yes hemorrhoids, No ulcers, Yes gallbladder problem, No black,tarry stools Neel Hematologic: No blood thinners, No blood disorders, No bleeding, No anemia, No blood clots Neuro Neurologic: No system reviewed and no additional complaints, except as docu, No as per HPI, No abnormal walking, No abnormal hearing, No abnormal movements, No abnormal speech, No behavioral changes, No burning sensations, No confusion, No seizure-like activity, No unsteadiness, No dizziness, No localized weakness, No frequent falls, No headache(s), No lack of coordination, No loss of vision, No memory loss, No numbness, No other visual disturbances, No radiating pain, No restless legs, No sensory deficit, No fainting, No tingling, No tremor(s), No weakness, No other Exam Const General: cooperative, comfortable, no acute distress, well developed Chest Breast Palpation: No nipple discharge Resp Effort & Inspection: normal respiratory effort Cardio Rate: regular rate GI Inspection: non-distended Palpation: soft, no guarding, tender (Mild right upper quadrant) Assessment & Plan Problems 1. Biliary dyskinesia K82.8 2. Gastroesophageal reflux disease K21.9 3. History of COVID-19 Z86.16 Plan Will give patient omeprazole 40 mg p.o. daily due to symptoms of heartburn. Reviewed the anatomy with the patient and discussed the procedure: laparoscopic cholecystectomy with possible cholangiograms, possible open. Review risks including but not limited to bleeding, infection, hernia, bile leak, retained gallstones requiring another procedure ERCP- Endoscopic Retrograde Cholangiopancreatography, injury to another organ (bile ducts, common bile duct, small bowel, etc.) may require transfer to tertiary care facility and conversion to an open procedure. All questions were answered. April Zeng M.D. Pager: [phone] [facility] [address] [place] [address], [facility], [address] [place] [address] Office: [phone] Medications New: omeprazole swallow whole; do not crush, chew, dissolve, cut, break 40 mg PO QDAY 30 caps 1RF Plan Detail Follow Up We will schedule lap esperanza Coding Level of Care Code Off vis,new,level 3 Diagnoses Biliary dyskinesia K82.8 Gastroesophageal reflux disease K21.9 History of COVID-19 Z86.16 COVID (Procedure Consent) Procedure Criteria Procedure Criteria: Yes Elective (Patient is previously already had Covid) The surgeon/proceduralist and patient have discussed in detail the risk of exposure to and/or potential harm posed by the COVID-19 virus with having a surgery/procedure at this time versus the risk of? delaying the surgery/procedure. It is not possible to know either the risk of delaying the surgery or procedure or chance of getting an infection with perfect accuracy, but a joint decision was made between the patient and the surgeon/proceduralist ?to proceed at this time with the scheduled surgery/procedure as indicated on the consent form. I have re-examined the patient. There are no clinical changes since date of exam.
[2021-02-08 12:55] VITALS: BP 120/86; PULSE 64; RESP 18; TEMP 36.8; O2SAT 97; BMI 26.2
[2021-02-08] MEDS: Lactated Ringers 1,000 ML 100 ML IV ×2 (13:22→16:00)
[2021-02-08 13:31] LABS: Partial Thromboplast Time 26.9 Seconds (24.1-36.2); Prothrombin Time (Protime)PT. 12.5 SECONDS (11.7-14.9)
[2021-02-08 13:41] LABS: Bedside Glucose 106 mg/dL (70-110)
[2021-02-08] MEDS: Cefazolin 2 GM in 0.9% Normal Saline 100 ML IV (15:04)
--- NOTE | 2021-02-08 15:20 | RAD_ITS ---
STUDY: INTRAOPERATIVE GLANDULAR. REASON FOR EXAM: Female, 56 years old. PAIN FLUOROSCOPY TIME (if supplied): ( 4.8 seconds ) minutes/seconds. A cine loop of 15 images were submitted. TECHNIQUE: An intraoperative cholangiogram was performed by the surgeon. Imaging was submitted. COMPARISON: None. FINDINGS: The visualized intrahepatic biliary ducts are unremarkable. The common bile duct is unremarkable. There is free flow of contrast into the duodenum. RAD/Cholangiogram/ O R,Initial IMPRESSION: Unremarkable intraoperative cholangiogram. Electronically Signed: Russ Holly MD at 15:57 EDT , Service support ,
[2021-02-08] MEDS: Bupivacaine Mpf 0.5% 30 ML VIAL (16:00)
--- NOTE | 2021-02-08 16:00 | OP.PCM_ITS ---
Report of Operation Date of Procedure: 02/08/21 Pre-Operative Diagnosis: Biliary dyskinesia Post-Operative Diagnosis: Same Surgery/Procedure Performed:: Laparoscopic cholecystectomy with cholangiograms community support associate: Meryl Montez Type of Anesthesia:: General/Supplemental Anesthesiologist: Bret Torres Special Medications: Ancef 2 g IV x1 Specimen's removed: Gallbladder Estimated Blood Loss (mL): < 10 cc Fluids Replaced: 1000 cc Description of Procedure: Indications this is a 56 year-old female who had ejection fraction of 7% on HIDA scan, ultrasound the gallbladder was within normal limits no gallstones.. Laparoscopic cholecystectomy was elected. Description procedure: The patient was placed on operating table in supine position. General Anesthesia was induced. A timeout was completed verifying correct patient, procedure, site, position and special equipment prior to beginning procedure. The abdomen was prepped and draped in usual sterile fashion. An incision was made in the natural skin line above the umbilicus. The fascia was elevated and incised. The peritoneum was elevated and incised. Entry into the peritoneum was confirmed visually and no bowel was noted in the vicinity of the incision. Guerra trocar was placed. The abdomen was insufflated with carbon dioxide to a pressure of 12-15 mmHg. Patient tolerated insufflation well. The laparoscope was then inserted and abdomen inspected. No injuries from initial trocar placement were noted. Additional trochars were then inserted in the following locations 5 mm trocar in the epigastrium and 2 more 5 mm trochars along the right costal margin. The abdomen was inspected no abnormalities were found. The table is placed in reverse Trendelenburg position with the right side up. The adhesions between the gallbladder and omentum were lysed sharply. The dome of the gallbladder was grasped with atraumatic grasper passed through the lateral port and retracted over the dome of the liver. Infundibulum was then grasped with atraumatic grasper through the midclavicular port and retracted to the right lower quadrant. This maneuver exposed Calot's triangle. The peritoneum overlying the gallbladder infundibulum was then incised and cystic duct and artery identified and circumferentially dissected. Renteria catheter was used for cholangiograms. The cholangiogram showed good filling of the common bile duct into the duodenum with no filling defects, good filling of the right and left bile ducts as well. The cystic duct and artery were then doubly clipped and divided close to the gallbladder. The gallbladder then dissected from its peritoneal attachments by electrocau cyrus. Hemostasis was checked and the gallbladder and contained stones were removed using the endoscopic retrieval bag through the umbilical port. The gallbladder is passed off table as specimen. The gallbladder fossa was copiously irrigated with saline and hemostasis obtained. There is no evidence of bleeding from the gallbladder fossa or cystic artery leakage of bile from the cystic duct stump. Secondary trochars removed under direct vision. No bleeding was noted the trocar sites. The laparoscope was withdrawn and umbilical trocar removed. The abdomen was allowed to collapse. The fascia of the 12 mm trocar was closed with a [id number] 0 Vicryl suture. The skin was closed with sutures of 4-0 Monocryl and Steri-Strips. The orogastric tube was removed and the patient was extubated. The patient tolerated procedure well and was taken to the postanesthesia care unit in stable condition. - Complications none
--- NOTE | 2021-02-08 16:02 | DCINST_ITS ---
Discharge Diet: Light diet - advance as tolerated Discharge Activity: May not drive while taking narcotic pain medications. May shower in (days): 1 Lifting Restrictions: no lifting >20 lb x2 weeks, no strenuous exercise x 4 wks Call your doctor if your incision/area has: Continuous Slow Oozing, Sudden Increased Bleeding, Increased Pain/ Swelling, Increased Redness, Foul Smelling Discharge, Swelling at the incision site Call your doctor if you observe: Fever of 101 or Higher Additional Instructions: Okay to take ibuprofen 400-600 mg PO q6hr PRN along with the hydrocodone/acetaminophen. Avoid Tylenol since there is already Tylenol in the hydrocodone/acetaminophen. Take all pain meds with food. Hydrocodone/acetaminophen can cause constipation recommend taking daily stool softener (i.e. Colace/docusate) while taking the pain meds. Recommend starting some MiraLAX in 1 to 2 days if no bowel movement. If still no bowel movement the following day recommend taking magnesium citrate half the bottle and waiting 4-6 hours if still no results take the other half the bottle. Allergies/Adverse Reactions: Allergies metronidazole Allergy (Mild, Verified 02/07/21 08:26) Rash Medications to take at Discharge Lisinopril/Hydrochlorothiazide [Zestoretic 20/25 Tablet] 1 tab PO DAILY 06/11/14 multivitamin 1 tab PO DAILY 02/06/21 omeprazole 40 mg capsule,delayed release 40 mg PO QDAY #30 cap 02/06/21 wheat dextrin 5 gram/7.4 gram oral powder 1 g PO BID 02/06/21 Hydrocodone Bitart/Apap 5-325 [[place] 5MG-325MG] 1 - 2 tablet PO Q6H PRN PRN 5 Da ys #25 tablet 02/08/21 The following prescriptions were given: Hydrocodone Bitart/Apap 5-325 [[place] 5MG-325MG] 1 - 2 tablet PO Q6H PRN PRN 5 Days #25 tablet PRN Reason: Pain Transmission Status: Received by [facility] Primary Care Physician: Bret Gomez MD [Primary Care Provider] - Test Results: Test results from this visit will be discussed in further detail at your follow- up appointment, if applicable. Please Follow Up With: April Zeng MD - After 5 PM and on the weekends call [phone] When: Call the office for a follow-up appointment 2 weeks. Proposed Discharge Date: 02/08/21
[2021-02-08 16:14] VITALS: BP 120/86; BP 148/76; PULSE 83; RESP 18; TEMP 36.5; O2SAT 100
[2021-02-08 16:30] VITALS: BP 120/86; BP 138/71; PULSE 66; RESP 18; O2SAT 100
[2021-02-08 16:35] LABS: Bedside Glucose 121 mg/dL (70-110)
[2021-02-08 16:45] VITALS: BP 120/86; BP 141/71; PULSE 63; RESP 16; O2SAT 99
[2021-02-08 17:00] VITALS: BP 120/86; BP 140/58; PULSE 60; RESP 18; TEMP 36.6; O2SAT 100
[2021-02-08] MEDS: HYDROcodone Bitartrate/Apap 5/325 Tablet PO (17:25)
[2021-02-08 18:25] VITALS: BP 120/86; BP 143/80; PULSE 71; RESP 18; TEMP 36.7; O2SAT 97
== END 2021-02-08 18:35 | disposition home or self-care (01) ==
LOC: SDC 12:33 → AC 12:33
PROVIDERS: Anesthesiology; PCP Family Medicine; Referring Provider Surgery; Visit Provider Surgery
PROC: (CPT 47610; principal; 2021-02-08 14:10)
DX: K81.1 Chronic cholecystitis (principal); K82.8 Other specified diseases of gallbladder; I10 Essential (primary) hypertension; K21.9 Gastro-esophageal reflux disease without esophagitis; E11.9 Type 2 diabetes mellitus without complications; F32.9 Major depressive disorder, single episode, unspecified; F41.9 Anxiety disorder, unspecified; Z78.0 Asymptomatic menopausal state; Z86.16 Personal history of COVID-19; Z79.899 Other long term (current) drug therapy; F17.200 Nicotine dependence, unspecified, uncomplicated
CPT/HCPCS: 00790; 47563; 74300; 76000; 82962; 85610; 85730; 88304; 93005; J7120; J2405

== ENCOUNTER → 2021-04-25 10:47 | Outpatient (CLI) | payer OTHER, SELFPAY ==
--- NOTE | 2021-04-25 10:49 | BI_ITS ---
MAMMOGRAPHY - BILATERAL SCREENING REASON FOR EXAM: Female, 56 years old. Routine annual screening examination. PERTINENT HISTORY: Aunt with breast cancer. TECHNIQUE: Digital bilateral breast sandy (3D mammographic acquisition) in the CC and MLO projections. 2-D mediolateral oblique (MLO) and craniocaudad (CC) views of both breasts were obtained. CAD: Full Field Digital Mammography with Computer Added Detection was performed. COMPARISON: Comparison is made with prior study dated 06/09/2029: 22,018. FINDINGS: Breast Composition: There are scattered areas of fibroglandular density. There are no dominant masses or suspicious calcifications. Stable 6.9 mm well-defined nodule in the anterior superior lateral portion of left breast suggests a small lymph node. Stable small benign-appearing bilateral axillary lymph nodes. No other significant abnormalities are identified. There has been no significant change since the prior study. BI/SCRN MAMM (CAD)W/SANDY BILAT IMPRESSION: Stable bilateral screening mammogram. Yearly follow-up mammogram recommended. (A) ASSESSMENT CATEGORY: BIRADS Category 2: Benign. A letter regarding these results will be sent to the patient by the facility within 30 days. Approximately 10% of breast cancers are not detected by mammography. A normal mammogram should not delay biopsy of a clinically suspicious abnormality. [id number] Electronically Signed: Russ Holly MD at 12:00 EDT , Service support ,
== END ==
PROVIDERS: PCP Family Medicine; Referring Provider Family Medicine; Visit Provider Family Medicine
DX: Z12.31 Encounter for screening mammogram for malignant neoplasm of breast (principal)
CPT/HCPCS: 77063; 77067

== ENCOUNTER 2021-12-14 10:04 | Outpatient (CLI) | payer OTHER, SELFPAY ==
[2021-12-14 12:19] LABS: Absolute Lymphocyte Count 1.58 X10^3/uL (0.83-4.51); Absolute Neutrophil Count 3.7 X10^3/uL (2.0-7.7); Basophil# 0.03 X10^3/uL; Basophil% 0.5 % (0-1); Eosinophil# 0.05 X10^3/uL; Eosinophils% 0.9 % (0-5); Hematocrit 41.6 % (37-47); Hemoglobin 14.1 g/dL (12.0-15.0); Lymphocyte # 1.58 X10^3/ul (0.83-4.51); Mean Corp Hgb Conc 33.9 g/dL (32-36); Mean Corpuscular Hgb 29.6 pg (27.0-32.0); Mean Corpuscular Volume 87.4 fL (81-99); Mean Platelet Vol. 10.3 fl (6.2-12.0); Monocyte# 0.31 X10^3/uL; Monocyte% 5.5 % (0-10); NRBC Flagged by Analyzer 0 % (0-5); Neutrophil # 3.66 X10^3/uL (2.7-7.7); Neutrophil % 64.9 % (47-70); Platelet Count 296 K/mm3 (150-450); RBC Distribution Width CV 11.8 % (11.6-14.6); RBC Distribution Width SD 38.3 fl (35.1-43.9); Red Blood Count 4.76 M/mm3 (4.2-5.4); White Blood Count 5.6 K/mm3 (4.4-11.0)
[2021-12-14 12:55] LABS: ALB/GLOB Ratio 1.2 RATIO (0.9-2.4); AST(SGOT) 22 U/L (15-37); Alanine Aminotransfer ALT/SGPT 35 U/L (13-56); Albumin, Serum 4.2 g/dL (3.2-5.0); Alkaline Phosphatase 70 U/L (45-117); Anion Gap 6 (5-15); BUN 15 mg/dL (7-18); BUN/Creat Ratio 20.5 RATIO (10-20); CRP < 2.90 mg/L (0.0-3.0); Calcium,Total 9.1 mg/dL (8.5-10.1); Chloride 105 mmol/L (98-107); Creatinine, Serum 0.73 mg/dL (0.55-1.02); EST Glomerular Filtration Rate 87 mL/min (>60); Est Glom Filt Rate - Afr Amer 105 mL/min (>60); GGTP 30 U/L (5-55); Globulin 3.4 g/dL (2.2-4.2); Glucose 100 mg/dL (74-106); Lipase 137 U/L (73-393); Potassium 3.6 mmol/L (3.5-5.1); Protein, Total 7.6 g/dL (6.4-8.2); Sodium Level 137 mmol/L (136-145); Thyroid Stim Hormone (TSH) 0.66 uIU/mL (0.358-3.74)
[2021-12-17 16:08] LABS: Endomysial Antibody IgA Negative (Negative)
[2021-12-17 20:22] LABS: Deamidated Gliadin IgA 7 units (0-19); Deamidated Gliadin IgG 2 units (0-19); Immunoglobulin A 142 mg/dL (87-352); t-Transglutaminase IgA <2 U/mL (0-3)
== END 2021-12-14 23:59 | disposition short-term general hospital (02) ==
LOC: MFPLAB 10:04
PROVIDERS: PCP Family Medicine; Referring Provider Family Medicine; Visit Provider Family Medicine
DX: R10.84 Generalized abdominal pain (principal); R19.7 Diarrhea, unspecified
CPT/HCPCS: 36415; 80053; 82784; 82977; 83516; 83690; 84443; 85025; 86140; 86255

== ENCOUNTER 2021-12-18 15:18 | Outpatient (CLI) | payer OTHER, SELFPAY | END 2021-12-18 23:59 | disposition short-term general hospital (02) | LOC: MFPLAB 15:19 | PROVIDERS: PCP Family Medicine; Referring Provider Family Medicine; Visit Provider Family Medicine | DX: R19.7 Diarrhea, unspecified (principal) | CPT/HCPCS: 87493; 87506 ==

== ENCOUNTER 2022-01-25 09:23 | Emergency (ER) | payer OTHER, SELFPAY ==
[2022-01-25 09:25] VITALS: BP 150/82; PULSE 79; RESP 17; TEMP 36.1; O2SAT 98; BMI 25.2
--- NOTE | 2022-01-25 09:48 | CT_ITS ---
STUDY: CT ABDOMEN AND PELVIS WITH CONTRAST REASON FOR EXAM: Female, 57 years old. One-month history of abdominal pain. RADIATION DOSAGE (If Supplied By Facility): CTDIvol = ( 11.23 ) mGy, DLP = ( 612.18 ) mGycm TECHNIQUE: Transaxial images were obtained from the dome of the diaphragm to the symphysis pubis without oral contrast. IV 100mL Isovue-300 was administered. Sagittal and coronal images were reconstructed. Individualized dose optimization techniques were used for this CT. COMPARISON: Comparison is made with prior study dated 09/18/2019. FINDINGS: Stable 4 mm noncalcified nodule in the anterior aspect of the right lower lobe as seen on axial image #4. The visualized portions of the heart are within normal limits. Normal liver. The patient is status post cholecystectomy. Normal spleen. Normal pancreas. Normal bilateral adrenal glands. Normal right kidney. Normal left kidney. Normal visualized stomach. Normal small intestine. There are multiple colonic diverticula consistent with diverticulosis. Moderate amount of fecal material is seen in the colon. The appendix is visualized and appears normal. There is scattered atherosclerotic calcification of the abdominal aorta, without a demonstrated aneurysm. Normal inferior vena cava. Normal retroperitoneum. Normal urinary bladder. Enlarged calcified fibroid uterus. 1.5 cm follicle in the left ovary. There is a small umbilical hernia containing fat. There are degenerative changes of the visualized lumbar spine. CT/Abdomen/Pelvis W IV Cont ONLY IMPRESSION: Status post cholecystectomy. Sigmoid diverticulosis. Moderate amount of fecal material is seen in the colon. 1.5 cm follicle in the left ovary. Enlarged calcified fibroid uterus. Electronically Signed: Russ Holly MD at 11:03 EST ,
--- NOTE | 2022-01-25 09:50 | ED.VIS.GI ---
HPI <NICOLE Hooker - Last Filed: 01/25/22 11:44> HPI - GI History of Present Illness Chief Complaint: Abd Pain Detail of Chief Complaint: Informant: patient Abdominal Pain/Flank Pain Timing: Continuous Quality: Aching Location: Diffuse and Right Flank Nausea/Vomiting/Emesis GI Symptom: Positive for Nausea and Vomiting Onset: Month(s) Diarrhea/Melena/Hematochezia GI Symptom: Positive for Diarrhea Onset: Month(s) Narrative Narrative: 57-year-old female with history of hypertension, presents to the emergency department with 1 month of abdominal pain. Patient has seen her PCP twice for this, patient was placed on Levsin that did help. Currently the patient is getting worked up for different abdominal issues, she has received blood work, is scheduled for CT scan and colonoscopy however she states that the pain was too great the last couple days and she is here for a CAT scan. Patient denies any fevers, chills, patient does have diarrhea however no nausea or vomiting. Denies any fever or chills. PFSH <NICOLE Hooker - Last Filed: 01/25/22 11:44> [facility] Medical History (Updated 01/25/22 @ 11:42 by NICOLE Hooker) Chest pain Diabetes Hypertension Home Medications lisinopril-hydrochlorothiazide 1 tab PO DAILY 06/11/14 [History Last Taken 06/11/14 09:00 1 TAB] multivitamin 1 tab PO DAILY 02/06/21 [History Last Taken Unknown] diphenoxylate-atropine [Lomotil] 1 tab PO BID PRN #14 tab 01/25/22 [Rx Last Taken Unknown] mirtazapine 15 mg PO QHS 01/25/22 [History Last Taken Unknown] omeprazole 40 mg PO DAILY PRN PRN 01/25/22 [History Last Taken Unknown] Allergy/AdvReac Type Severity Reaction Status Date / Time metronidazole Allergy Mild Rash Verified 01/25/22 09:24 Family History Mother Colon cancer CAD (coronary artery disease) Hypertension Aunt Colon cancer Surgical History S/P knee surgery S/P laparoscopic cholecystectomy Social History (Updated 04/01/21 @ 13:[address] April Zeng MD) Smoking Status: Former smoker alcohol intake: current alcohol intake frequency: holidays/special occasions only ROS <NICOLE Hooker - Last Filed: 01/25/22 11:44> ROS ED Constitutional Constitutional ED: Reports systems reviewed and no addt'l complaints, except as documented Eyes Eyes: Reports systems reviewed and no addt'l complaints, except as documented ENT ENT ED: Reports systems reviewed and no addt'l complaints, except as documented Cardiovascular Cardiovascular: Reports systems reviewed and no addt'l complaints, except as documented Respiratory/Chest Respiratory/Chest: Reports systems reviewed and no addt'l complaints, except as documented Gastrointestinal Gastrointestinal: Reports as per HPI, abdominal pain, diarrhea, nausea and vomiting Genitourinary Genitourinary ED: Reports systems reviewed and no addt'l complaints, except as documented Integumentary Reports systems reviewed and no addt'l complaints, except as documented Neurologic Neurologic: Reports systems reviewed and no addt'l complaints, except as documented Psychiatric Psychiatric: Reports systems reviewed and no addt'l complaints, except as documented Endocrine Endocrinology: Reports systems reviewed and no addt'l complaints, except as documented Allergic/Immunologic Allergic/Immunologic ED: Reports systems reviewed and no addt'l complaints, except as documented EXAM <NICOLE Hooker - Last Filed: 01/25/22 11:44> Physical Exam Const Vital Signs: 01/25/22 09:25 Temperature 96.9 F L Temperature Source Temporal Pulse Rate 79 Respiratory Rate 17 Blood Pressure 150/82 H Blood Pressure Mean 104 Pulse Ox 98 Oxygen Delivery Method Room Air Positive well nourished HEENT Reports normocephalic Chest Wall inspection of chest normal Chest: symmetrical chest wall rise Resp normal respiratory effort Cardio regular rate GI normal to inspection, nondistended, normoactive bowel sounds GI Narrative: When palpating the stomach, patient has no sharp pain however he states that it is sore all over. Negative for any CVA tenderness. Skin General Skin Exam: no breakdown <Dr. Umer Dorado DO - Last Filed: 02/01/22 22:55> Physical Exam Const Vital Signs: 01/25/22 09:25 Temperature 96.9 F L Temperature Source Temporal Pulse Rate 79 Respiratory Rate 17 Blood Pressure 150/82 H Blood Pressure Mean 104 Pulse Ox 98 Oxygen Delivery Method Room Air [facility] <Eddie YangNICOLE - Last Filed: 01/25/22 11:44> [facility] Lab Data Labs: Laboratory Results - last 24 hr 01/25/22 01/25/22 01/25/22 09:35 09:35 09:55 WBC 6.2 RBC 5.12 Hgb 14.9 Hct 44.5 MCV 86.9 MCH 29.1 MCHC 33.5 RDW Std Deviation 38.0 RDW Coeff of Ollie 11.9 Plt Count 302 MPV 10.1 Immature Gran % (Auto) 0.200 Neut % (Auto) 64.2 Lymph % (Auto) 27.6 Faulkner % (Auto) 5.5 Eos % (Auto) 1.9 Baso % (Auto) 0.6 Absolute Neuts (auto) 4.0 Absolute Lymphs (auto) 1.70 Nucleated RBC % 0 Sodium 138 Potassium 4.0 Chloride 107 Carbon Dioxide 27.0 Anion Gap 4 L BUN 17 Creatinine 0.86 Estim Creat Clear Calc 73.61 Est GFR (MDRD) Af Amer 87 Est GFR (MDRD) Non-Af 72 BUN/Creatinine Ratio 19.9 Glucose 106 Calcium 9.8 Total Bilirubin 0.50 AST 43 H ALT 81 H Alkaline Phosphatase 88 Total Protein 7.8 Albumin 4.2 Globulin 3.6 Albumin/Globulin Ratio 1.2 Lipase 141 Urine Color Yellow Urine Clarity Sl. Cloudy Urine pH 6.5 Ur Specific [place] 1.015 Urine Protein Negative Urine Glucose (UA) Normal Urine Ketones Negative Urine Occult Blood Negative Urine Nitrite Negative Urine Bilirubin Negative Urine Urobilinogen Normal Ur Leukocyte Esterase 25 H Urine RBC 0 SEEN Urine WBC 0-5 SEEN Ur Squamous Epith Cells 0-5 SEEN Urine Bacteria 1+ Urine Mucus 0 SEEN Radiography Diagnostic Testing: Clinical Impression(s) from Imaging Studies Abdomen/Pelvis CT 01/25/22 09:48 IMPRESSION: Status post cholecystectomy. Sigmoid diverticulosis. Moderate amount of fecal material is seen in the colon. 1.5 cm follicle in the left ovary. Enlarged calcified fibroid uterus. Electronically Signed: Russ Holly MD at 11:03 EST , generalized abdominal pain, diarrheaPatient appears well, patient appears nontoxic, vital signs are stable. Patient presents the emerge department with 1 month of and is here for evaluation. Patient is currently getting worked up, she has seen her PCP for this, she has a colonoscopy scheduled the next week. Patient did receive a basic abdominal work-up today, patient's laboratory values were grossly unremarkable, patient's urinalysis was negative, patient did receive an abdominal CT with IV contrast this did show a status post cholecystectomy, diverticulosis, a little enlarged calcified uterus. However no acute abdominal process. Patient continue to follow-up outpatient, patient given Bentyl for her pain and spasm. She is given strict return precautions to return for any worsening abdominal pain, fever chills nausea vomiting blood in stool. Patient stable for discharge <Dr. Umer Dorado, DO - Last Filed: 02/01/22 22:55> [facility] Narrative Medical decision making narrative: Attending note: Patient seen and evaluated with nail kegger. I perform my own [id number] evaluation. I agree with the plan of work-up. Abdominal pain generalized for the past month. Worse in the last 2 days. Pending colonoscopy as an outpatient. History of cholecystectomy in the past. Exam generalized tenderness however more left lower quadrant is no guarding or rebound. Bowel sounds intact. Abdominal labs normal no leukocytes and 1+ bacteria she is asymptomatic. CT scan was obtained noting no acute surgical process. Calcified uterus noted. Post cholecystectomy. Patient is reassured and to follow-up with her specialist as an outpatient. Lab Data Attestation: I reviewed the patient's lab results. Labs: Laboratory Results - last 24 hr 01/25/22 01/25/22 01/25/22 09:35 09:35 09:55 WBC 6.2 RBC 5.12 Hgb 14.9 Hct 44.5 MCV 86.9 MCH 29.1 MCHC 33.5 RDW Std Deviation 38.0 RDW Coeff of Ollie 11.9 Plt Count 302 MPV 10.1 Immature Gran % (Auto) 0.200 Neut % (Auto) 64.2 Lymph % (Auto) 27.6 Faulkner % (Auto) 5.5 Eos % (Auto) 1.9 Baso % (Auto) 0.6 Absolute Neuts (auto) 4.0 Absolute Lymphs (auto) 1.70 Nucleated RBC % 0 Sodium 138 Potassium 4.0 Chloride 107 Carbon Dioxide 27.0 Anion Gap 4 L BUN 17 Creatinine 0.86 Estim Creat Clear Calc 73.61 Est GFR (MDRD) Af Amer 87 Est GFR (MDRD) Non-Af 72 BUN/Creatinine Ratio 19.9 Glucose 106 Calcium 9.8 Total Bilirubin 0.50 AST 43 H ALT 81 H Alkaline Phosphatase 88 Total Protein 7.8 Albumin 4.2 Globulin 3.6 Albumin/Globulin Ratio 1.2 Lipase 141 Urine Color Yellow Urine Clarity Sl. Cloudy Urine pH 6.5 Ur Specific [place] 1.015 Urine Protein Negative Urine Glucose (UA) Normal Urine Ketones Negative Urine Occult Blood Negative Urine Nitrite Negative Urine Bilirubin Negative Urine Urobilinogen Normal Ur Leukocyte Esterase 25 H Urine RBC 0 SEEN Urine WBC 0-5 SEEN Ur Squamous Epith Cells 0-5 SEEN Urine Bacteria 1+ Urine Mucus 0 SEEN Radiography Diagnostic Testing: Clinical Impression(s) from Imaging Studies Abdomen/Pelvis CT 01/25/22 09:48 IMPRESSION: Status post cholecystectomy. Sigmoid diverticulosis. Moderate amount of fecal material is seen in the colon. 1.5 cm follicle in the left ovary. Enlarged calcified fibroid uterus. Electronically Signed: Russ Holly MD at 11:03 EST , Discharge Plan Triage Chief Complaint: Abd Pain ED Provider: Eddie Yang Dx/Rx/DC Orders Clinical Impression: Abdominal pain in female Instructions: Abdominal Pain Prescriptions: New diphenoxylate-atropine [Lomotil] 2.5-0.025 mg tablet 1 tab PO BID PRN (Reason: diarrhea) Qty: 14 RF: 0 No Action multivitamin Tablet 1 tab PO DAILY RF: 0 lisinopril-hydrochlorothiazide 1 TABLET tablet 1 tab PO DAILY RF: 0 mirtazapine 15 mg Tablet 15 mg PO QHS RF: 0 omeprazole 40 mg capsule,delayed release(DR/EC) 40 mg PO DAILY PRN PRN (Reason: GERD) RF: 0 Primary Care Provider: Bret oGmez Referrals: Bret Gomez MD [Primary Care Provider] - Friend,Gumaro, DO [STAFF PHYSICIAN] - Activity Restrictions/Additional Instructions: Please follow-up with the surgeon and perform your colonoscopy that is scheduled. Please see your COPING MACHINE OPERATOR regarding your enlarged calcified uterus for further evaluation. Please use Bentyl as needed. Stay hydrated. Disposition Disposition: Home, Self Care Discharge Date/Time: 01/25/22 23:59
[2022-01-25 09:54] LABS: Basophil# 0.04 X10^3/uL; Basophil% 0.6 % (0-1); Eosinophil# 0.12 X10^3/uL; Eosinophils% 1.9 % (0-5); Hematocrit 44.5 % (37-47); Hemoglobin 14.9 g/dL (12.0-15.0); Lymphocyte % 27.6 % (19-41); Mean Corp Hgb Conc 33.5 g/dL (32-36); Mean Corpuscular Hgb 29.1 pg (27.0-32.0); Mean Corpuscular Volume 86.9 fL (81-99); Mean Platelet Vol. 10.1 fl (6.2-12.0); Monocyte# 0.34 X10^3/uL; Monocyte% 5.5 % (0-10); NRBC Flagged by Analyzer 0 % (0-5); Neutrophil # 3.95 X10^3/uL (2.7-7.7); Neutrophil % 64.2 % (47-70); Platelet Count 302 K/mm3 (150-450); RBC Distribution Width CV 11.9 % (11.6-14.6); Red Blood Count 5.12 M/mm3 (4.2-5.4); White Blood Count 6.2 K/mm3 (4.4-11.0)
[2022-01-25] MEDS: 0.9% Normal Saline 1,000 ML 1000 ML IV (09:58)
[2022-01-25 10:03] LABS: Mucous, Urine 0 SEEN /hpf (<or=2+); Red Blood Cells-Urine 0 SEEN /hpf (0-5)
[2022-01-25 10:06] LABS: Color, Urine Yellow (Yellow); Glucose, Dipstick Normal (Normal); Ketone-Dipstick Negative (Negative); Leukocyte Esterase-Dipstick 25 /ul (Negative); Nitrite-Dipstick Negative (Negative); Occult Blood-Urine Negative /ul (Negative); Protein-Dipstick Negative (Negative); Specific Gravity, Urine 1.015 (1.002-1.030); Urine Bilirubin Dipstick Negative (Negative); Urine Clarity Sl. Cloudy (Clear); Urine Urobilinogen Normal (Normal); Urine pH 6.5 (5.0 - 8.0)
[2022-01-25 10:07] LABS: ALB/GLOB Ratio 1.2 RATIO (0.9-2.4); AST(SGOT) 43 U/L (15-37); Alanine Aminotransfer ALT/SGPT 81 U/L (13-56); Albumin, Serum 4.2 g/dL (3.2-5.0); Alkaline Phosphatase 88 U/L (45-117); Anion Gap 4 (5-15); BUN 17 mg/dL (7-18); BUN/Creat Ratio 19.9 RATIO (10-20); Calcium,Total 9.8 mg/dL (8.5-10.1); Chloride 107 mmol/L (98-107); Creatinine, Serum 0.86 mg/dL (0.55-1.02); EST Glomerular Filtration Rate 72 mL/min (>60); Est Glom Filt Rate - Afr Amer 87 mL/min (>60); Estimated Creatinine Clearance 73.61 ml/min; Globulin 3.6 g/dL (2.2-4.2); Glucose 106 mg/dL (74-106); Lipase 141 U/L (73-393); Protein, Total 7.8 g/dL (6.4-8.2); Sodium Level 138 mmol/L (136-145)
[2022-01-25 10:28] LABS: Bacteria 1+ /hpf (None Seen); Squamous Epithelial Cells - UA 0-5 SEEN /hpf (5-10); White Blood Cells 0-5 SEEN /hpf (0-5)
[2022-01-25 12:02] VITALS: BP 131/77; PULSE 68; RESP 16; O2SAT 98
== END 2022-01-25 12:18 | disposition home or self-care (01) ==
PROVIDERS: Emergency Provider Nurse Practitioner; PCP Family Medicine; Visit Provider Nurse Practitioner
DX: R10.9 Unspecified abdominal pain (principal); E11.9 Type 2 diabetes mellitus without complications; R19.7 Diarrhea, unspecified; R11.2 Nausea with vomiting, unspecified; I10 Essential (primary) hypertension; Z87.891 Personal history of nicotine dependence; Z79.899 Other long term (current) drug therapy; Z90.49 Acquired absence of other specified parts of digestive tract
CPT/HCPCS: 74177; 80053; 81001; 83690; 85025; 96360; 96361; 99283; J7030; Q9967; A4216

== ENCOUNTER 2022-05-08 10:53 | Day surgery (SDC) | payer OTHER, SELFPAY ==
--- NOTE | 2022-05-08 | GASB_PTH ---
PATIENT: PATRICK PHILIPPE LOC: [facility] U#:[id number] AGE/SX: 57/F ROOM: RE05/08/[address]: Dr. Gumaro Sandhu DO : 1965 BED: DIS: 05/08/2022 SPEC #: [id number] RECD: 05/08/22 14:54 STATUS: LAKIHSA YELENA #: [id number] ALEJANDRA: 05/08/22 00:[address]: Gumaro Sandhu DEPT: SURGICAL PATHOLOGY RECD BY: Doyle Lyn ENTERED: 05/09/22 08:39 SP TYPE: Gastric Bx OTHR DR: Dr. Bret Gomez MD Tissues: A - Gastric mucous membrane B - Esophageal mucous membrane C - Ileum, NOS D - COLON BIOPSY E - Sigmoid colon biopsy Procedures: Special Stain Group II Surgery Specimen Level IV Alcian Blue/PAS (control) HEADER OPERATION: Colonoscopy, EGD ([facility]) PRE-OP DIAGNOSIS: RUQ pain, diarrhea, GERD, history colonic polyp TISSUE SUBMITTED: A ? Gastric ulcer, B ? Distal esophagus biopsy, C ? Terminal ileum biopsy, D ? Random colon biopsy, E ? Sigmoid colon biopsy MICROSCOPIC DIAGNOSIS A. Gastric ulcer, biopsy: Mild to moderate gastritis. See microscopic description and comment. B. Distal esophagus, biopsy: Fragments of gastroesophageal mucosa with chronic inflammation. Intestinal metaplasia (goblet cell metaplasia) not identified. See comment. C. Terminal ileum, biopsy: A fragment of small intestinal mucosa, no pathologic diagnosis. D. Colon, random biopsy: Fragments of colonic mucosa, no pathologic diagnosis. E. Sigmoid colon polyp, biopsy: Tubular adenoma. SJ:ashly 05/10/2022 COMMENT A. The results of immunohistochemistry for Helicobacter pylori will be reported separately ([id number]). B. Alcian blue/PAS stain with matched control is used in the evaluation of the specimen. MICROSCOPIC DESCRIPTION Slides are reviewed. A. The specimen shows fragments of gastric mucosa with chronic inflammatory cell infiltrates in the lamina propria consisting of lymphocytes and plasma cells, consistent with mild to moderate chronic gastritis. Focal superficial erosion, mucosal congestion and hemorrhage are also noted. GROSS DESCRIPTION A - Received in fixative is one container labeled with the patient's name and designated gastric ulcer. The specimen consists of multiple irregular fragments of light le soft tissue that in aggregate measure 1 x 0.3 x 0.1 cm. The specimen is totally submitted in one cassette. B - Received in fixative is one container labeled with the patient's name and designated distal esophagus biopsy. The specimen consists of two irregular fragments of light le soft tissue that in aggregate measure 0.6 x 0.3 x 0.1 cm. The specimen is totally submitted in one cassette. C - Received in fixative is one container labeled with the patient's name and designated terminal ileum biopsy. The specimen consists of one irregular fragment of light le soft tissue that measures 0.3 x 0.3 x 0.1 cm. The specimen is totally submitted in one cassette. D - Received in fixative is one container labeled with the patient's name and designated random colon biopsy. The specimen consists of multiple irregular fragments of light le soft tissue that in aggregate measure 2 x 1 x 0.1 cm. The specimen is totally submitted in one cassette. E - Received in fixative is one container labeled with the patient's name and designated sigmoid colon polyp. The specimen consists of one irregular fragment of light le soft tissue that measures 0.7 x 0.2 x 0.1 cm. The specimen is totally submitted in one cassette. / SJ:ashly 05/09/2022 TC:1 CPT: 53967 x5, [id number]
--- NOTE | 2022-05-08 11:02 | HP.PCM_ITS ---
History and Physical Date of Admission: 05/08/22 PATRICK PHILIPPE, is a 57 F who presents to the office today for diarrhea, RUQ pain, nausea, gas. Her symptoms began in November.? It started with diarrhea, the most bothersome symptom for her was the nausea.? No vomiting or hematemesis.? Had excessive burping and flatus.? At first she thought this was IBS, and then she became concerned it could be something more significant.? She is very worried due to her mother's history of colon cancer.? Patient's last colonoscopy was in 12/2018, she had a EGD at that time also.? A 10 mm tubular adenoma was removed from the rectum.? She has multiple diverticula.? 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 She had a cholecystectomy 1 year ago.? She has done well after that, she did not have an issue with diarrhea until 2 months ago.? Hyoscyamine made her feel worse.? She found Lomotil to be very helpful.? She is currently back to having regular bowel movements, no diarrhea.? Not currently having nausea.? Still with a little bit of extra gas but not as significant.? She only takes omeprazole on an as needed basis.? She continues to intermittently have a discomfort in the right upper quadrant, thinks it might be gas.? She had a thorough biochemical work-up which was negative.? She had a CT abdomen pelvis with IV contrast on 01/25/2022 at the emergency room; he revealed moderate amount of fecal material, sigmoid diverticulosis, enlarged calcified uterine fibroid. Also takes motrin, probiotic, vitamin D, sinus allergy pill, prn benefiber, prn miralax, MVI CT abd pel w/ IV contrast 01/25/22 FINDINGS: Stable 4 mm noncalcified nodule in the anterior aspect of the right lower lobe as seen on axial image #4.? The visualized portions of the heart are within normal limits. Normal liver.? The patient is status post cholecystectomy.? Normal spleen. Normal pancreas. Normal bilateral adrenal glands. Normal right kidney.? Normal left kidney. Normal visualized stomach.? Normal small intestine.? There are multiple colonic diverticula consistent with diverticulosis.? Moderate amount of fecal material is seen in the colon.? The appendix is visualized and appears normal. There is scattered atherosclerotic calcification of the abdominal aorta, without a demonstrated aneurysm.? Normal inferior vena cava.? Normal retroperitoneum. Normal urinary bladder.? Enlarged calcified fibroid uterus.? 1.5 cm follicle in the left ovary. There is a small umbilical hernia containing fat.? There are degenerative changes of the visualized lumbar spine. CT/Abdomen/Pelvis W IV Cont ONLY IMPRESSION: Status post cholecystectomy. Sigmoid diverticulosis. Moderate amount of fecal material is seen in the colon. 1.5 cm follicle in the left ovary. Enlarged calcified fibroid uterus. ROS Const Constitutional: Positive for fatigue; No fever(s), headache(s), weight change, sleep problems, abnormal sleep pattern or change in appetite ENT ENT: No headache(s), difficulty swallowing, hoarseness or sore throat Resp Respiratory: No cough, hemoptysis or shortness of breath Cardio Cardiology: No chest pain at rest or generalized swelling Gastro GI: Positive for abdominal pain, bloating, change in bowel habits, constipation, diarrhea, heartburn and nausea/dyspepsia; No belching, change in stool character, coffee ground emesis, cramping, difficulty swallowing, feeling full early, excessive flatus, incontinent of stools, Vomiting blood/hematemesis, Blood in stool, loose stools, Black,tarry stools, pain with swallowing or vomiting Musc Musculoskeletal: Positive for joint pain, back pain, stiffness and Arthritis; No joint swelling, numbness or tingling Skin Skin: No itchy eyes or rash Neuro Neurology: No behavioral changes, confusion, headache(s), numbness or tingling Psych Psychiatric: No abnormal sleep pattern, Positive for anxiety, No behavioral changes, No change in appetite, No confusion and No depression Endo Endocrine: Positive for fatigue; No cold intolerance, heat intolerance, increased thirst/drinking or weight change Aller/Imm Allergy/Immunologic: No food intolerance or itchy eyes Neel/Lymp Hematologic/Lymphatic: Positive for easy bleeding; No easy bruising or enlarged lymph nodes Exam Const General: cooperative, healthy appearing, no acute distress, well developed, well groomed and anxious Eyes Conjunctivae: conjunctivae normal Sclera: sclerae normal Resp Effort & Inspection: normal respiratory effort GI Inspection: normal to inspection Palpation: soft, no hepatosplenomegaly and nontender Quality Reporting Tobacco Screening ([facility] 138) Smoking Status: Former smoker Assessment and Plan Assessment and Plan (1) RUQ pain: ?Status:?Acute (2) Diarrhea: ?Status:?Acute (3) GERD (gastroesophageal reflux disease): ?Status:?Acute (4) Hx of colonic polyp: ?Status:?Acute (5) FH: colon cancer: ?Status:?Acute ?Plan: 57-year-old female with recent diarrhea, right upper quadrant abdominal pain, gas, nausea.? She has a history of GERD, IBS, rectal polyp, cholecystectomy, mot her had colon cancer.? Her symptoms have almost completely resolved.? I will have her take omeprazole daily rather than as needed.? Okay to use Lomotil as needed.? She is scheduled for EGD and colonoscopy on May 08, follow-up with Dr. Sandhu 2 weeks after that.? Certainly if she has any concerns prior to her endoscopy she should call. Coding Level of Care Code Off vis,new,level 3 Diagnoses RUQ pain? R10.11 Diarrhea? R19.7 GERD (gastroesophageal reflux disease)? K21.9 Hx of colonic polyp? Z86.010 FH: colon cancer? Z80.0 I have re-examined the patient. There are no clinical changes since date of exam.
[2022-05-08] MEDS: Lactated Ringers 1,000 ML 15 ML IV (11:05)
[2022-05-08 11:20] VITALS: BP 140/73; PULSE 73; RESP 18; TEMP 36.7; O2SAT 97; BMI 25.0
--- NOTE | 2022-05-08 12:15 | IMM_PTH ---
PATIENT: PATRICK PHILIPPE LOC: [facility] U#:[id number] AGE/SX: 57/F ROOM: RE05/08/[address]: Dr. Gumaro Sandhu DO : 1965 BED: DIS: 05/08/2022 SPEC #: [id number] RECD: 05/09/22 13:28 STATUS: LAKISHA YELENA #: [id number] ALEJANDRA: 05/08/22 12:[address]: Gumaro Sandhu DEPT: IMMUNOHISTOCHEMISTRY RECD BY: Milagros Marie ENTERED: 05/09/22 13:29 SP TYPE: IMMUNO OTHR DR: Dr. Bret Gomez MD Tissues: A - Stomach, NOS Procedures: H Pylori (initial) PHYSICIAN & INSTITUTION [place] [id number] SPECIMEN INFORMATION: Tissue Source: A ? Gastric ulcer Clinical Info: RUQ pain, diarrhea, GERD, history colon polyp Specimen Number: [id number] CPT code: 28069 METHODOLOGY: Deparaffinized sections of prefer/formalin-fixed tissue or PAP/DQ stained slides are incubated with monoclonal/polyclonal antibodies/oligonucleotide probes. Localization is made via biotin free immunoperoxidase method. Appropriate controls are performed and reacted as expected. Results on target cell population are indicated in the following table: RESULTS: ANTIBODY / CLONE RESULT Block A H Pylori (polyclonal) negative These tests were developed and their performance characteristics determined by [facility]. They may not have been cleared or approved by the U.S. Food and Drug Administration. The FDA has determined that such clearance or approval is not necessary. The above immunohistochemical/dualISH markers are ordered and reviewed by the Pathologist. INTERPRETATION: A. Gastric ulcer, biopsy: Negative for Helicobacter pylori organisms. MIKE:ashly 05/14/2022
[2022-05-08 12:21] LABS: Bedside Glucose 106 mg/dL (74-106)
[2022-05-08 13:00] VITALS: BP 109/65; BP 140/73; PULSE 65; RESP 16; TEMP 36.2; O2SAT 100
--- NOTE | 2022-05-08 13:02 | OP.EGD_ITS ---
Patient Name: Qi Irwin Procedure Date: 05/08/2022 12:08 PM Date of : 1965 Age: 57 Procedure: Upper GI endoscopy Indications: Abdominal pain in the right upper quadrant Providers: Gumaro Sandhu DO Medicines: Monitored Anesthesia Care Patient Profile: This is a 57 year old female. Refer to note in patient chart for documentation of history and physical. Patient has symptoms of chronic right upper quadrant abdominal pain. Complications: No immediate complications. Procedure: Pre-Anesthesia Assessment: - Prior to the procedure, a History and Physical was performed, and patient medications and allergies were reviewed. The patient is competent. The risks and benefits of the procedure and the sedation options and risks were discussed with the patient. All questions were answered and informed consent was obtained. Patient identification and proposed procedure were verified by the physician in the pre-procedure area. Mental Status Examination: alert and oriented. Airway Examination: normal oropharyngeal airway and neck mobility. Respiratory Examination: clear to auscultation. CV Examination: normal. Prophylactic Antibiotics: The patient does not require prophylactic antibiotics. Prior Anticoagulants: The patient has taken no previous anticoagulant or antiplatelet agents. ASA Grade Assessment: II - A patient with mild systemic disease. After reviewing the risks and benefits, the patient was deemed in satisfactory condition to undergo the procedure. The anesthesia plan was to use moderate sedation / analgesia (conscious sedation). Immediately prior to administration of medications, the patient was re-assessed for adequacy to receive sedatives. The heart rate, respiratory rate, oxygen saturations, blood pressure, adequacy of pulmonary ventilation, and response to care were monitored throughout the procedure. The physical status of the patient was re-assessed after the procedure. After obtaining informed consent, the endoscope was passed under direct vision. Throughout the procedure, the patient's blood pressure, pulse, and oxygen saturations were monitored continuously. The Colonoscope was introduced through the mouth, and advanced to the second part of duodenum. The upper GI endoscopy was accomplished without difficulty. The patient tolerated the procedure well. Scope In: 12:23:24 PM Scope Out: 12:30:06 PM Total Procedure Duration Time 0 hours 6 minutes 42 seconds Findings: The Z-line was irregular and was found 37 cm from the incisors. Biopsies were taken with a cold forceps for histology. Verification of patient identification for the specimen was done. Estimated blood loss was minimal. Two oozing cratered gastric ulcers with adherent clot were found in the gastric body. The largest lesion was 6 mm in largest dimension. Biopsies were taken with a cold forceps for histology. Verification of patient identification for the specimen was done. Estimated blood loss was minimal. The second portion of the duodenum was normal. Impression: - Z-line irregular, 37 cm from the incisors. Biopsied. - Oozing gastric ulcers with adherent clot. Biopsied. - Normal second portion of the duodenum. Recommendation: - Discharge patient to home. - Resume previous diet. - No aspirin, ibuprofen, naproxen, or other non-steroidal anti-inflammatory drugs for 13 days. - Await pathology results. Procedure Code(s): --- Professional --- 44108, Esophagogastroduodenoscopy, flexible, transoral; with biopsy, single or multiple CPT copyright 2017 [employer]. All rights reserved. The codes documented in this report are preliminary and upon ironworker foreman review may be revised to meet current compliance requirements. Gumaro Sandhu DO 05/08/2022 1:02:17 PM This report has been signed electronically. Number of Addenda: 1 Note Initiated On: 05/08/2022 12:08 PM Addendum Number: 1 Addendum Date: 08/27/2022 6:18:42 AM MAC was used as sedation for this procedure. Gumaro Sandhu DO 08/27/2022 6:18:46 AM This report has been signed electronically.
--- NOTE | 2022-05-08 13:03 | OP.CCLET_ITS ---
08/27/2022 Bret Gomez [address] [place] [address] Re : Upper GI endoscopy procedure for Qi Irwin Dear Dr. Gomez This procedure was performed on Sunday, May 08, 2022. My impressions and recommendations are as follows: Impressions : - Z-line irregular, 37 cm from the incisors. Biopsied. - Oozing gastric ulcers with adherent clot. Biopsied. - Normal second portion of the duodenum. Recommendations : - Discharge patient to home. - Resume previous diet. - No aspirin, ibuprofen, naproxen, or other non-steroidal anti-inflammatory drugs for 13 days. - Await pathology results. My findings are described in the full procedure note, which is enclosed. If I can be of further assistance, please feel free to contact me at . Sincerely, Gumaro Sandhu, 05/08/2022 1:02:17 PM This report has been signed electronically.
[2022-05-08 13:05] VITALS: BP 121/76; BP 140/73; PULSE 62; RESP 16; O2SAT 100
--- NOTE | 2022-05-08 13:09 | OP.COLON_ITS ---
Patient Name: Qi Irwin Procedure Date: 05/08/2022 12:30 PM Date of : 1965 Age: 57 Procedure: Colonoscopy Indications: Abdominal pain in the right lower quadrant, Clinically significant diarrhea of unexplained origin Providers: Gumaro Sandhu DO Medicines: Monitored Anesthesia Care Patient Profile: This is a 57 year old female. Refer to note in patient chart for documentation of history and physical. Patient has symptoms of chronic right upper quadrant abdominal pain. Last Colonoscopy: none. The patient's first colonoscopy is today. Complications: No immediate complications. Procedure: Pre-Anesthesia Assessment: - Prior to the procedure, a History and Physical was performed, and patient medications and allergies were reviewed. The patient is competent. The risks and benefits of the procedure and the sedation options and risks were discussed with the patient. All questions were answered and informed consent was obtained. Patient identification and proposed procedure were verified by the physician in the pre-procedure area. Mental Status Examination: alert and oriented. Airway Examination: normal oropharyngeal airway and neck mobility. Respiratory Examination: clear to auscultation. CV Examination: normal. Prophylactic Antibiotics: The patient does not require prophylactic antibiotics. Prior Anticoagulants: The patient has taken no previous anticoagulant or antiplatelet agents. ASA Grade Assessment: II - A patient with mild systemic disease. After reviewing the risks and benefits, the patient was deemed in satisfactory condition to undergo the procedure. The anesthesia plan was to use moderate sedation / analgesia (conscious sedation). Immediately prior to administration of medications, the patient was re-assessed for adequacy to receive sedatives. The heart rate, respiratory rate, oxygen saturations, blood pressure, adequacy of pulmonary ventilation, and response to care were monitored throughout the procedure. The physical status of the patient was re-assessed after the procedure. After I obtained informed consent, the scope was passed under direct vision. Throughout the procedure, the patient's blood pressure, pulse, and oxygen saturations were monitored continuously. The Colonoscope was introduced through the anus and advanced to the terminal ileum. The colonoscopy was performed without difficulty. The patient tolerated the procedure well. The quality of the bowel preparation was good. Scope In: 12:33:44 PM Scope Withdrawal Time 0 hours 12 minutes 13 seconds Scope Out: 12:51:26 PM Total Procedure Duration Time 0 hours 17 minutes 42 seconds Findings: The perianal and digital rectal examinations were normal. Multiple small and large-mouthed diverticula were found in the recto-sigmoid colon, sigmoid colon and descending colon. There was narrowing of the colon in association with the diverticular opening. There was evidence of diverticular spasm. Eleanor-diverticular erythema was seen. There was evidence of an impacted diverticulum. A 5 mm polyp was found in the sigmoid colon. The polyp was sessile. The polyp was removed with a cold snare. Resection and retrieval were complete. Verification of patient identification for the specimen was done. Estimated blood loss was minimal. An area of mildly congested mucosa was found in the sigmoid colon, in the descending colon and at the hepatic flexure. Biopsies were taken with a cold forceps for histology. Verification of patient identification for the specimen was done. Estimated blood loss was minimal. The terminal ileum appeared normal. Biopsies were taken with a cold forceps for histology. Verification of patient identification for the specimen was done. Estimated blood loss was minimal. Impression: - Severe diverticulosis in the recto-sigmoid colon, in the sigmoid colon and in the descending colon. There was narrowing of the colon in association with the diverticular opening. There was evidence of diverticular spasm. Eleanor-diverticular erythema was seen. There was evidence of an impacted diverticulum. - One 5 mm polyp in the sigmoid colon, removed with a cold snare. Resected and retrieved. - Congested mucosa in the sigmoid colon, in the descending colon and at the hepatic flexure. Biopsied. - The examined portion of the ileum was normal. Biopsied. Recommendation: - Discharge patient to home. - Resume previous diet. - Repeat colonoscopy in 5 years for surveillance based on pathology results. - Continue present medications. Procedure Code(s): --- Professional --- 18486, Colonoscopy, flexible; with removal of tumor(s), polyp(s), or other lesion(s) by snare technique 32150, 57, Colonoscopy, flexible; with biopsy, single or multiple CPT copyright 2017 [employer]. All rights reserved. The codes documented in this report are preliminary and upon griddle attendant review may be revised to meet current compliance requirements. Gumaro Sandhu DO 05/08/2022 1:09:16 PM This report has been signed electronically. Number of Addenda: 1 Note Initiated On: 05/08/2022 12:30 PM Addendum Number: 1 Addendum Date: 08/27/2022 6:18:54 AM MAC was used as sedation for this procedure. Gumaro Sandhu DO 08/27/2022 6:18:58 AM This report has been signed electronically.
[2022-05-08 13:10] VITALS: BP 109/64; BP 140/73; PULSE 75; RESP 16; O2SAT 100
--- NOTE | 2022-05-08 13:10 | OP.CCLET_ITS ---
08/27/2022 Bret Gomez [address] [place] [address] Re : Colonoscopy procedure for Qi Irwin Dear Dr. Gomez This procedure was performed on Sunday, May 08, 2022. My impressions and recommendations are as follows: Impressions : - Severe diverticulosis in the recto-sigmoid colon, in the sigmoid colon and in the descending colon. There was narrowing of the colon in association with the diverticular opening. There was evidence of diverticular spasm. Eleanor-diverticular erythema was seen. There was evidence of an impacted diverticulum. - One 5 mm polyp in the sigmoid colon, removed with a cold snare. Resected and retrieved. - Congested mucosa in the sigmoid colon, in the descending colon and at the hepatic flexure. Biopsied. - The examined portion of the ileum was normal. Biopsied. Recommendations : - Discharge patient to home. - Resume previous diet. - Repeat colonoscopy in 5 years for surveillance based on pathology results. - Continue present medications. My findings are described in the full procedure note, which is enclosed. If I can be of further assistance, please feel free to contact me at . Sincerely, Gumaro Sandhu DO 05/08/2022 1:09:16 PM This report has been signed electronically.
[2022-05-08 13:23] VITALS: BP 120/63; BP 140/73; PULSE 71; RESP 16; TEMP 36.1; O2SAT 100
[2022-05-08 13:55] VITALS: BP 140/73
== END 2022-05-08 14:09 | disposition home or self-care (01) ==
LOC: EN 10:54 → AC 10:56
PROVIDERS: PCP Family Medicine; Referring Provider Family Medicine; Visit Provider Internal Medicine Gastroenterology
PROC: 0DJD8ZZ Inspection of Lower Intestinal Tract, Via Natural or Artificial Opening Endoscopic (ICD-10-PCS; CPT 45378; principal; 2022-05-08 12:10)
DX: D12.5 Benign neoplasm of sigmoid colon (principal); K63.89 Other specified diseases of intestine; K29.50 Unspecified chronic gastritis without bleeding; K25.9 Gastric ulcer, unspecified as acute or chronic, without hemorrhage or perforation; K57.30 Diverticulosis of large intestine without perforation or abscess without bleeding; I10 Essential (primary) hypertension; M54.50 Low back pain, unspecified; K21.00 Gastro-esophageal reflux disease with esophagitis, without bleeding; G89.29 Other chronic pain; Z87.891 Personal history of nicotine dependence; Z79.899 Other long term (current) drug therapy; Z86.010 Personal history of colon polyps; Z80.0 Family history of malignant neoplasm of digestive organs
CPT/HCPCS: 45385; 45380; 43239; 82962; 88305; 88313; 88342; J7120; J2405

== ENCOUNTER → 2022-05-15 | Outpatient (CLI) | payer OTHER, SELFPAY ==
[2022-05-21 11:25] LABS: Gastrin, Serum 929 pg/mL (0-115)
== END | disposition home or self-care (01) ==
LOC: LAB 16:03
PROVIDERS: PCP Family Medicine; Referring Provider Nurse Practitioner Adult Health; Visit Provider Nurse Practitioner Adult Health
DX: K25.9 Gastric ulcer, unspecified as acute or chronic, without hemorrhage or perforation (principal)
CPT/HCPCS: 36415; 82941

== ENCOUNTER → 2022-05-22 | Outpatient (CLI) | payer OTHER, SELFPAY ==
[2022-05-22 09:35] LABS: Absolute Lymphocyte Count 1.64 X10^3/uL (0.83-4.51); Absolute Neutrophil Count 4.2 X10^3/uL (2.0-7.7); Basophil# 0.02 X10^3/uL; Basophil% 0.3 % (0-1); Eosinophil# 0.06 X10^3/uL; Hematocrit 43.4 % (37-47); Hemoglobin 14.3 g/dL (12.0-15.0); Lymphocyte # 1.64 X10^3/ul (0.83-4.51); Mean Corp Hgb Conc 32.9 g/dL (32-36); Mean Corpuscular Hgb 28.9 pg (27.0-32.0); Mean Corpuscular Volume 87.9 fL (81-99); Mean Platelet Vol. 10.2 fl (6.2-12.0); Monocyte# 0.41 X10^3/uL; Monocyte% 6.5 % (0-10); NRBC Flagged by Analyzer 0 % (0-5); Neutrophil # 4.16 X10^3/uL (2.7-7.7); Platelet Count 305 K/mm3 (150-450); RBC Distribution Width SD 38.6 fl (35.1-43.9); Red Blood Count 4.94 M/mm3 (4.2-5.4); White Blood Count 6.3 K/mm3 (4.4-11.0)
[2022-05-22 10:09] LABS: PTHIN 41.8 pg/mL (18.4-80.1)
[2022-05-22 10:24] LABS: ALB/GLOB Ratio 1.3 RATIO (0.9-2.4); AST(SGOT) 23 U/L (15-37); Alanine Aminotransfer ALT/SGPT 38 U/L (13-56); Albumin, Serum 4.3 g/dL (3.2-5.0); Alkaline Phosphatase 79 U/L (45-117); Anion Gap 6 (5-15); BUN 15 mg/dL (7-18); BUN/Creat Ratio 19.6 RATIO (10-20); Calcium,Total 9.3 mg/dL (8.5-10.1); Chloride 105 mmol/L (98-107); Creatinine, Serum 0.76 mg/dL (0.55-1.02); EST Glomerular Filtration Rate 82 mL/min (>60); Est Glom Filt Rate - Afr Amer 99 mL/min (>60); Globulin 3.4 g/dL (2.2-4.2); Glucose 122 mg/dL (74-106); Potassium 3.7 mmol/L (3.5-5.1); Prolactin 5.6 ng/mL; Protein, Total 7.7 g/dL (6.4-8.2); Sodium Level 139 mmol/L (136-145); Thyroid Stim Hormone (TSH) 0.87 uIU/mL (0.358-3.74)
== END | disposition home or self-care (01) ==
PROVIDERS: PCP Family Medicine; Referring Provider Nurse Practitioner Adult Health; Visit Provider Nurse Practitioner Adult Health
DX: E16.4 Increased secretion of gastrin (principal)
CPT/HCPCS: 36415; 80053; 83970; 84146; 84443; 85025

== ENCOUNTER → 2022-06-10 | Outpatient (CLI) | payer OTHER, SELFPAY ==
--- NOTE | 2022-06-10 07:58 | NM_ITS ---
INDICATION: hypergastrinemia, Family History of Colon Cancer , EXAMINATION: NUCLEAR MEDICINE OCTREOTIDE SCAN - NM SPECT Tumor Localization, Single Area, 2 or more days with Vascular Flow and Blood Pool Imaging i TECHNIQUE: 7.2 mCi of indium 111 octreotide were intravenously administered. Six hour anterior and posterior whole body images were obtained. 24 hour whole body images and SPECT images were also obtained. COMPARISON: Comparison is made with prior CT scan abdomen and pelvis dated 01/25/2022. FINDINGS: There is physiologic activity seen in the liver, spleen, kidneys, and GI tract. There is no abnormal accumulation. NM/Tumor Localization SPECT IMPRESSION: Negative octreotide scan. Electronically Signed: Russ Holly MD at 13:26 EDT ,
== END | disposition home or self-care (01) ==
LOC: NM 07:56
PROVIDERS: PCP Family Medicine; Referring Provider Nurse Practitioner Adult Health; Visit Provider Nurse Practitioner Adult Health
DX: E16.4 Increased secretion of gastrin (principal)
CPT/HCPCS: 78803; 78804; A9572

== ENCOUNTER → 2022-09-20 | Outpatient (CLI) | payer BC, SELFPAY ==
[2022-09-20 15:33] LABS: Hemoglobin A1c 6.2 % (3.8-5.6)
[2022-09-20 15:42] LABS: ALB/GLOB Ratio 1.2 RATIO (0.9-2.4); AST(SGOT) 29 U/L (15-37); Alanine Aminotransfer ALT/SGPT 53 U/L (13-56); Albumin, Serum 4.5 g/dL (3.2-5.0); Alkaline Phosphatase 82 U/L (45-117); Anion Gap 9 (5-15); BUN 16 mg/dL (7-18); BUN/Creat Ratio 22.3 RATIO (10-20); Calcium,Total 9.7 mg/dL (8.5-10.1); Chloride 103 mmol/L (98-107); Cholesterol 240 mg/dL (200); Creatinine, Serum 0.72 mg/dL (0.55-1.02); EST Glomerular Filtration Rate 88 mL/min (>60); Est Glom Filt Rate - Afr Amer 107 mL/min (>60); Globulin 3.7 g/dL (2.2-4.2); Glucose 104 mg/dL (74-106); High Density Lipoprotein 53 mg/dL; Potassium 3.4 mmol/L (3.5-5.1); Protein, Total 8.2 g/dL (6.4-8.2); Sodium Level 137 mmol/L (136-145); Triglycerides 171 mg/dL; Very Low Density Lipoprotein 34 mg/dL (5-40)
== END | disposition home or self-care (01) ==
LOC: MFPLAB 11:32
PROVIDERS: PCP Family Medicine; Referring Provider Family Medicine; Visit Provider Nurse Practitioner Family
DX: I10 Essential (primary) hypertension (principal); E11.9 Type 2 diabetes mellitus without complications; Z13.220 Encounter for screening for lipoid disorders
CPT/HCPCS: 36415; 80053; 80061; 83036

== ENCOUNTER → 2022-09-25 | Outpatient (CLI) | payer BC, SELFPAY ==
--- NOTE | 2022-09-25 12:01 | BI_ITS ---
MAMMOGRAPHY - BILATERAL SCREENING REASON FOR EXAM: Female, 57 years old. Routine annual screening examination. PERTINENT HISTORY: Aunt with breast cancer. TECHNIQUE: Digital bilateral breast sandy (3D mammographic acquisition) in the CC and MLO projections. 2-D mediolateral oblique (MLO) and craniocaudad (CC) views of both breasts were obtained. CAD: Full Field Digital Mammography with Computer Added Detection was performed. COMPARISON: Comparison is made with prior study dated 04/25/2021 and 12/10/2019. FINDINGS: Breast Composition: There are scattered areas of fibroglandular density. There are no dominant masses or suspicious calcifications. Stable 6.9 mm well-defined nodule in the anterior superior lateral aspect of the left breast suggestive of a small lymph node. Stable small benign appearing bilateral axillary No other significant abnormalities are identified. There has been no significant change since the prior study. BI/SCRN MAMM (CAD)W/SANDY BILAT IMPRESSION: Stable bilateral screening mammogram. Yearly follow-up mammogram recommended. (A) ASSESSMENT CATEGORY: BIRADS Category 2: Benign. A letter regarding these results will be sent to the patient by the facility within 30 days. Approximately 10% of breast cancers are not detected by mammography. A normal mammogram should not delay biopsy of a clinically suspicious abnormality. [id number] Electronically Signed: Russ Holly MD at 12:59 EDT ,
== END | disposition home or self-care (01) ==
LOC: OPBI 11:58
PROVIDERS: PCP Family Medicine; Visit Provider Family Medicine
DX: Z12.31 Encounter for screening mammogram for malignant neoplasm of breast (principal)
CPT/HCPCS: 77063; 77067

== ENCOUNTER → 2022-10-01 | Outpatient (CLI) | payer BC, SELFPAY ==
--- NOTE | 2022-10-01 12:57 | BD_ITS ---
STUDY: DUAL ENERGY X-RAY ABSORPTIOMETRY / DXA REASON FOR EXAM: Female, 57 years old. 627.8Menopausal postmenopausalBONE DENSITY REASON FOR EXAM TECHNIQUE: Bone Mineral Density (BMD) measurements of lumbar spine and bilateral hips were obtained. COMPARISON: None. FINDINGS: Lumbar Spine (L1-L4): g/cm2 (0.950) / T-score (-0.9) / Z-score (0.5) Findings are suggestive of normal bone density with a low fracture risk. Left Femur Total: g/cm2 (0.778) / T-score (-1.3) / Z-score (-0.4) Left Femoral Neck: g/cm2 (0.6-2) / T-score (-2.0) / Z-score (-0.8) Right Femur Total: g/cm2 (0.721) / T-score (-1.8) / Z-score (-0.9) Right Femoral Neck: g/cm2 (0.577) / T-score (-2.4) / Z-score (-1.2) BD/Dexa Bone Density Study IMPRESSION: The patient is considered osteopenic as outlined below according to World [employer] Organization (WHO) criteria with a high fracture risk. Reference Information: The T-score is the number of standard deviations above or below the standard which is normal for young adults at their peak bone mineral density. The World Health Organization (WHO) interprets the T-scores as follows: Above -1 Normal bone density Between -1 and -2.5 Osteopenia Equal to / or below -2.5 Osteoporosis As a practical clinical guideline, osteopenia may be graded as follows: Mild -1 through -1.5 Moderate -1.6 through -2.0 Severe -2.1 through -2.4 The Z-score is the number of standard deviations above or below age-matched controls. A Z-score of less than -1.5 would be considered abnormal. References: 1. NIH Osteoporosis and Related Bone Diseases www osteo.org 2. International Society for Clinical Densitometry www iscd.org 3. National Osteoporosis Foundation www nof.org Electronically Signed: Russ Holly MD at 15:07 EST ,
== END | disposition home or self-care (01) ==
PROVIDERS: PCP Family Medicine; Visit Provider Nurse Practitioner Family
DX: Z78.0 Asymptomatic menopausal state (principal)
CPT/HCPCS: 77080

== ENCOUNTER 2022-10-23 07:24 | Day surgery (SDC) | payer BC, SELFPAY ==
--- NOTE | 2022-10-23 | GASB_PTH ---
PATIENT: PATRICK PHILIPPE LOC: [facility] U#:[id number] AGE/SX: 57/F ROOM: RE10/23/[address]: Dr. Gumaro Sandhu DO : 1965 BED: DIS: 10/23/2022 SPEC #: [id number] RECD: 10/23/22 11:48 STATUS: LAKISHA REEryn #: [id number] ALEJANDRA: 10/23/22 00:[address]: Gumaro Sandhu DEPT: SURGICAL PATHOLOGY RECD BY: Doyle Lyn ENTERED: 10/23/22 11:48 SP TYPE: Gastric Bx STEPH DR: Dr. Bret Gomez MD Tissues: Gastric mucous membrane Procedures: Surgery Specimen Level IV HEADER OPERATION: EGD ([facility]) with biopsies PRE-OP DIAGNOSIS: Gastric ulcer, hypergastrinemia TISSUE SUBMITTED: Gastric ulcer biopsy MICROSCOPIC DIAGNOSIS Gastric ulcer, biopsy: Chronic gastritis. See comment. AM:ashly 10/24/2022 COMMENT The results of immunohistochemistry for Helicobacter pylori will be reported separately ([id number]). MICROSCOPIC DESCRIPTION Slides are reviewed. GROSS DESCRIPTION Received in fixative is one container labeled with the patient's name and designated gastric ulcer. The specimen consists of one irregular fragment of light le soft tissue that measures 0.6 x 0.2 x 0.1 cm. The specimen is totally submitted in one cassette. / AM:ashly 10/23/2022 TC:3 CPT: 79341
[2022-10-23 07:48] VITALS: BP 143/85; PULSE 70; RESP 16; TEMP 36.3; O2SAT 98; BMI 26.0
[2022-10-23] MEDS: Lactated Ringers 1,000 ML 15 ML IV (07:52)
--- NOTE | 2022-10-23 08:21 | PCM.HP.BLA ---
History and Physical Date of Admission: 10/23/22 PATRICK PHILIPPE, is a 57 F who presents to the office today for 3 month follow up gastric ulcer, hypergastrinemia. She presented with diarrhea, RUQ pain, and nausea. Her symptoms began in November 2021.? Her motrin was stopped and she was put on omeprazole. EGD revealed oozing gastric ulcers. Colonoscopy revealed diverticular disease and tubular adenoma. Gastrin and chromagranin A were elevated, but octreotide scan was negative. There is a FH carcinoid. Today she reports that she feels very well. No longer has nausea or diarrhea. The RUQ pain has resolved. She tool sucralfate x 1 month, and took omeprazole 40 mg bid x 2 months. She is now taking omeprazole 20 mg prn. Gets heartburn if eats tomato sauce or other acidic or too big of a meal. No NSAIDs at all. Bowels are moving well. No melena or hematochezia. Patient initially presented to the office for diarrhea, RUQ pain, nausea, gas.? It started with diarrhea, the most bothersome symptom for her was the nausea.? No vomiting or hematemesis.? Had excessive burping and flatus.? At first she thought this was IBS, and then she became concerned it could be something more significant.? She has been very worried due to her mother's history of colon cancer (carcinoid).? She improved with omeprazole, which we had her increase to daily at her initial appt on 02/12/22. Had her stop daily motrin.? Patient had colonoscopy in 12/2018, she had a EGD at that time also.? A 10 mm tubular adenoma was removed from the rectum.? She has multiple diverticula.? 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 She had a cholecystectomy in 2020; initially had diarrhea but that resolved.? She had a CT abdomen pelvis with IV contrast on 01/25/2022 at the emergency room; it revealed moderate amount of fecal material, sigmoid diverticulosis, enlarged calcified uterine fibroid. Mother had carcinoid tumor in colon; patient's maternal aunt also had carcinoid tumor (in appendix). ROS Const Constitutional: No fatigue ENT ENT: No difficulty swallowing Gastro GI: No abdominal pain, belching, bloating, change in bowel habits, change in stool character, coffee ground emesis, constipation, cramping, diarrhea, heartburn, difficulty swallowing, feeling full early, excessive flatus, incontinent of stools, Vomiting blood/hematemesis, Blood in stool, loose stools, Black,tarry stools, nausea/dyspepsia, pain with swallowing, vomiting or other Musc Musculoskeletal: Positive for stiffness and Arthritis; No joint pain Skin Skin: No yellowing of the eye or itchy eyes Psych Psychiatric: No anxiety and No depression Endo Endocrine: No fatigue Aller/Imm Allergy/Immunologic: No itchy eyes Neel/Lymp Hematologic/Lymphatic: No easy bleeding or easy bruising Exam Const General: cooperative, healthy appearing and comfortable Orientation: alert, awake and oriented x3 Quality Reporting Tobacco Screening ([facility] 138) Smoking Status: Former smoker Assessment and Plan Assessment and Plan (1) Gastric ulcer: ?Status:?Acute ?Plan: will schedule EGD to ensure resolution of gastric ulcers, f/u 2 wks later (2) Hypergastrinemia: ?Status:?Acute ?Plan: elevated due to PPI, octreotide scan negative, can recheck gastrin level at f/u ? ? ? Medications: Discontinued sucralfate ?? Discontinued Reason:? Pt not known to practice 1 g? PO QACHS 120 tabs 0RF stomach ulcer ? ? I have examined the patient and the H&P has been reviewed. There are no clinical changes since date of exam.
--- NOTE | 2022-10-23 08:30 | IMM_PTH ---
PATIENT: PATRICK PHILIPPE LOC: [facility] U#:[id number] AGE/SX: 57/F ROOM: RE10/23/[address]: Dr. Gumaro Sandhu DO : 1965 BED: DIS: 10/23/2022 SPEC #: [id number] RECD: 10/23/22 12:39 STATUS: LAKISHA REQ #: [id number] ALEJANDRA: 10/23/22 08:[address]: Gumaro Sandhu DEPT: IMMUNOHISTOCHEMISTRY RECD BY: Milagros Marie ENTERED: 10/23/22 12:40 SP TYPE: IMMUNO OTHR DR: Dr. Bret Gomez MD Tissues: Stomach, NOS Procedures: H Pylori (initial) PHYSICIAN & INSTITUTION [place] [address] SPECIMEN INFORMATION: Tissue Source: Gastric ulcer Clinical Info: Gastric ulcer, hypergastrinemia Specimen Number: [id number] CPT code: 13608 METHODOLOGY: Deparaffinized sections of prefer/formalin-fixed tissue or PAP/DQ stained slides are incubated with monoclonal/polyclonal antibodies/oligonucleotide probes. Localization is made via biotin free immunoperoxidase method. Appropriate controls are performed and reacted as expected. Results on target cell population are indicated in the following table: RESULTS: ANTIBODY / CLONE RESULT H Pylori (polyclonal) negative These tests were developed and their performance characteristics determined by [facility]. They may not have been cleared or approved by the U.S. Food and Drug Administration. The FDA has determined that such clearance or approval is not necessary. The above immunohistochemical/dualISH markers are ordered and reviewed by the Pathologist. INTERPRETATION: Gastric ulcer, biopsy: Negative for Helicobacter pylori organisms. AM:ashly 10/24/2022
[2022-10-23 08:45] VITALS: BP 143/85; BP 95/57; PULSE 78; RESP 18; TEMP 36.3; O2SAT 96
--- NOTE | 2022-10-23 08:46 | OP.EGD_ITS ---
Patient Name: Qi Irwin Procedure Date: 10/23/2022 8:31 AM Date of : 1965 Age: 57 Procedure: Upper GI endoscopy Indications: Peptic ulcer Providers: Gumaro Sandhu DO Medicines: Monitored Anesthesia Care Patient Profile: This is a 57 year old female. Refer to note in patient chart for documentation of history and physical. Patient has symptoms of chronic epigastric abdominal pain. Complications: No immediate complications. Procedure: Pre-Anesthesia Assessment: - Prior to the procedure, a History and Physical was performed, and patient medications and allergies were reviewed. The patient is competent. The risks and benefits of the procedure and the sedation options and risks were discussed with the patient. All questions were answered and informed consent was obtained. Patient identification and proposed procedure were verified by the physician in the pre-procedure area. Mental Status Examination: alert and oriented. Airway Examination: normal oropharyngeal airway and neck mobility. Respiratory Examination: clear to auscultation. CV Examination: normal. Prophylactic Antibiotics: The patient does not require prophylactic antibiotics. Prior Anticoagulants: The patient has taken no previous anticoagulant or antiplatelet agents. ASA Grade Assessment: II - A patient with mild systemic disease. After reviewing the risks and benefits, the patient was deemed in satisfactory condition to undergo the procedure. The anesthesia plan was to use monitored anesthesia care (MAC). Immediately prior to administration of medications, the patient was re-assessed for adequacy to receive sedatives. The heart rate, respiratory rate, oxygen saturations, blood pressure, adequacy of pulmonary ventilation, and response to care were monitored throughout the procedure. The physical status of the patient was re-assessed after the procedure. After obtaining informed consent, the endoscope was passed under direct vision. Throughout the procedure, the patient's blood pressure, pulse, and oxygen saturations were monitored continuously. The gastroscope was introduced through the mouth, and advanced to the duodenal bulb. The upper GI endoscopy was accomplished without difficulty. The patient tolerated the procedure well. Scope In: 8:36:28 AM Scope Out: 8:39:34 AM Total Procedure Duration Time 0 hours 3 minutes 6 seconds Findings: The examined esophagus was normal. The entire examined stomach was normal. One non-bleeding superficial gastric ulcer with no stigmata of bleeding was found in the gastric body. The lesion was 1 mm in largest dimension. Biopsies were taken with a cold forceps for histology. Verification of patient identification for the specimen was done. Estimated blood loss was minimal. The second portion of the duodenum was normal. Impression: - Normal esophagus. - Normal stomach. - Non-bleeding gastric ulcer with no stigmata of bleeding. Biopsied. - Normal second portion of the duodenum. Recommendation: - Discharge patient to home. - Resume previous diet. - Continue present medications. - Await pathology results. Procedure Code(s): --- Professional --- 21024, Esophagogastroduodenoscopy, flexible, transoral; with biopsy, single or multiple CPT copyright 2017 [employer]. All rights reserved. The codes documented in this report are preliminary and upon assembler brazer review may be revised to meet current compliance requirements. Gumaro Sandhu DO 10/23/2022 8:46:14 AM This report has been signed electronically. Number of Addenda: 0 Note Initiated On: 10/23/2022 8:31 AM
--- NOTE | 2022-10-23 08:47 | OP.CCLET_ITS ---
10/23/2022 Bret Gomez [address] [place] [address] Re : Upper GI endoscopy procedure for Qi Irwin Dear Dr. Gomez This procedure was performed on Sunday, October 23, 2022. My impressions and recommendations are as follows: Impressions : - Normal esophagus. - Normal stomach. - Non-bleeding gastric ulcer with no stigmata of bleeding. Biopsied. - Normal second portion of the duodenum. Recommendations : - Discharge patient to home. - Resume previous diet. - Continue present medications. - Await pathology results. My findings are described in the full procedure note, which is enclosed. If I can be of further assistance, please feel free to contact me at . Sincerely, Gumaro Sandhu, 10/23/2022 8:46:14 AM This report has been signed electronically.
[2022-10-23 08:51] VITALS: BP 107/67; BP 143/85; PULSE 61; RESP 18; O2SAT 95
[2022-10-23 08:54] VITALS: BP 105/71; BP 143/85; PULSE 58; RESP 18; O2SAT 95
[2022-10-23 09:00] VITALS: BP 114/96; BP 143/85; PULSE 58; RESP 18; TEMP 36.1; O2SAT 98
[2022-10-23 09:13] VITALS: BP 143/85
== END 2022-10-23 09:30 | disposition home or self-care (01) ==
LOC: EN 07:28 → AC 07:28
PROVIDERS: PCP Family Medicine; Referring Provider Family Medicine; Visit Provider Internal Medicine Gastroenterology
PROC: 0DJ08ZZ Inspection of Upper Intestinal Tract, Via Natural or Artificial Opening Endoscopic (ICD-10-PCS; CPT 43235; principal; 2022-10-23 08:25)
DX: K29.50 Unspecified chronic gastritis without bleeding (principal); K25.9 Gastric ulcer, unspecified as acute or chronic, without hemorrhage or perforation; Z87.891 Personal history of nicotine dependence
CPT/HCPCS: 43239; 88305; 88342; J7120; J2405

== ENCOUNTER → 2022-11-06 | Outpatient (CLI) | payer BC, SELFPAY ==
[2022-11-08 15:50] LABS: Gastrin, Serum 20 pg/mL (0-115)
== END | disposition home or self-care (01) ==
LOC: LAB 11:50
PROVIDERS: PCP Family Medicine; Referring Provider Nurse Practitioner Adult Health; Visit Provider Nurse Practitioner Adult Health
DX: E16.4 Increased secretion of gastrin (principal)
CPT/HCPCS: 36415; 82941

== ENCOUNTER → 2023-03-19 | Outpatient (CLI) | payer BC, SELFPAY ==
[2023-03-19 10:38] LABS: Absolute Lymphocyte Count 1.98 X10^3/uL (0.83-4.51); Absolute Neutrophil Count 3.3 X10^3/uL (2.0-7.7); Basophil# 0.03 X10^3/uL; Basophil% 0.5 % (0-1); Eosinophil# 0.17 X10^3/uL; Eosinophils% 2.9 % (0-5); Hematocrit 43.3 % (37-47); Hemoglobin 13.8 g/dL (12.0-15.0); Lymphocyte # 1.98 X10^3/ul (0.83-4.51); Lymphocyte % 33.8 % (19-41); Mean Corp Hgb Conc 31.9 g/dL (32-36); Mean Corpuscular Hgb 28.6 pg (27.0-32.0); Mean Corpuscular Volume 89.8 fL (81-99); Mean Platelet Vol. 10.6 fl (6.2-12.0); Monocyte# 0.42 X10^3/uL; Monocyte% 7.2 % (0-10); NRBC Flagged by Analyzer 0 % (0-5); Neutrophil # 3.25 X10^3/uL (2.7-7.7); Neutrophil % 55.4 % (47-70); Platelet Count 282 K/mm3 (150-450); RBC Distribution Width CV 11.9 % (11.6-14.6); RBC Distribution Width SD 38.9 fl (35.1-43.9); Red Blood Count 4.82 M/mm3 (4.2-5.4); White Blood Count 5.9 K/mm3 (4.4-11.0)
[2023-03-19 10:58] LABS: Microalbumin,Random Urine 5.9 mg/L (NO RANGE EST.); Microalbumin:Creatinine Ratio 5.6 mg/g CRE (<30 mg/g CRE)
[2023-03-19 11:02] LABS: ALB/GLOB Ratio 1.2 RATIO (0.9-2.4); AST(SGOT) 31 U/L (15-37); Alanine Aminotransfer ALT/SGPT 52 U/L (13-56); Alkaline Phosphatase 62 U/L (45-117); Anion Gap 4 (5-15); BUN 17 mg/dL (7-18); BUN/Creat Ratio 23.4 RATIO (10-20); Calcium,Total 9.1 mg/dL (8.5-10.1); Chloride 107 mmol/L (98-107); Cholesterol 188 mg/dL (200); Creatinine, Serum 0.73 mg/dL (0.55-1.02); EST Glomerular Filtration Rate 87 mL/min (>60); Est Glom Filt Rate - Afr Amer 105 mL/min (>60); Globulin 3.3 g/dL (2.2-4.2); Glucose 108 mg/dL (74-106); High Density Lipoprotein 49 mg/dL; Protein, Total 7.3 g/dL (6.4-8.2); Sodium Level 135 mmol/L (136-145); Triglycerides 147 mg/dL; Very Low Density Lipoprotein 29 mg/dL (5-40)
== END | disposition home or self-care (01) ==
LOC: MFPLAB 08:24
PROVIDERS: PCP Family Medicine; Visit Provider Family Medicine
DX: K27.9 Peptic ulcer, site unspecified, unspecified as acute or chronic, without hemorrhage or perforation (principal); E88.81 Metabolic syndrome and other insulin resistance
CPT/HCPCS: 36415; 80053; 80061; 82043; 82570; 85025

== ENCOUNTER → 2023-09-01 | Outpatient (CLI) | payer OTHER, SELFPAY ==
[2023-09-03 16:10] LABS: Gastrin, Serum 329 pg/mL (0-115)
== END | disposition home or self-care (01) ==
PROVIDERS: PCP Family Medicine; Referring Provider Internal Medicine Gastroenterology; Visit Provider Internal Medicine Gastroenterology
DX: E16.4 Increased secretion of gastrin (principal)
CPT/HCPCS: 36415; 82941

== ENCOUNTER → 2023-09-30 | Outpatient (CLI) | payer OTHER, SELFPAY ==
[2023-09-30 10:23] LABS: ALB/GLOB Ratio 1.1 RATIO (0.9-2.4); AST(SGOT) 19 U/L (15-37); Alanine Aminotransfer ALT/SGPT 33 U/L (13-56); Albumin, Serum 3.8 g/dL (3.2-5.0); Alkaline Phosphatase 65 U/L (45-117); Anion Gap 7 (5-15); BUN 19 mg/dL (7-18); BUN/Creat Ratio 28.2 RATIO (10-20); Chloride 107 mmol/L (98-107); Cholesterol 203 mg/dL (200); Creatinine, Serum 0.67 mg/dL (0.55-1.02); EST Glomerular Filtration Rate 95 mL/min (>60); Est Glom Filt Rate - Afr Amer 115 mL/min (>60); Globulin 3.4 g/dL (2.2-4.2); Glucose 126 mg/dL (74-106); High Density Lipoprotein 46 mg/dL; Potassium 3.8 mmol/L (3.5-5.1); Protein, Total 7.2 g/dL (6.4-8.2); Sodium Level 139 mmol/L (136-145); Triglycerides 143 mg/dL; Very Low Density Lipoprotein 29 mg/dL (5-40)
[2023-09-30 11:46] LABS: Hemoglobin A1c 6.1 % (3.8-5.6)
[2023-09-30 12:09] LABS: Microalbumin,Random Urine 13.6 mg/L (NO RANGE EST.); Microalbumin:Creatinine Ratio 5.1 mg/g CRE (<30 mg/g CRE)
== END | disposition home or self-care (01) ==
LOC: MFPLAB 08:03
PROVIDERS: PCP Family Medicine; Visit Provider Family Medicine
DX: I10 Essential (primary) hypertension (principal); E88.810 Metabolic syndrome
CPT/HCPCS: 36415; 80053; 80061; 82043; 82570; 83036

== ENCOUNTER → 2023-10-27 | Outpatient (CLI) | payer OTHER, SELFPAY ==
--- NOTE | 2023-10-27 09:42 | BI_ITS ---
MAMMOGRAPHY - BILATERAL SCREENING REASON FOR EXAM: Female, 58 years old. Routine annual screening examination. PERTINENT HISTORY: Aunt with breast cancer. TECHNIQUE: Digital bilateral breast sandy (3D mammographic acquisition) in the CC and MLO projections. 2-D mediolateral oblique (MLO) and craniocaudad (CC) views of both breasts were obtained. CAD: Full Field Digital Mammography with Computer Added Detection was performed. COMPARISON: Comparison is made with prior study dated September 25, 2022 and April 25, 2021. FINDINGS: Breast Composition: There are scattered areas of fibroglandular density. There are no dominant masses or suspicious calcifications. Stable 6.9 mm well-defined nodule in the anterior superior lateral aspect of the left breast. This is suggestive of a small lymph node. No other significant abnormalities are identified. There has been no significant change since the prior study. BI/SCRN MAMM (CAD)W/SANDY BILAT IMPRESSION: Stable bilateral screening mammogram. Yearly follow-up mammogram recommended. (A) ASSESSMENT CATEGORY: BIRADS Category 2: Benign. A letter regarding these results will be sent to the patient by the facility within 30 days. Approximately 10% of breast cancers are not detected by mammography. A normal mammogram should not delay biopsy of a clinically suspicious abnormality. [id number] Electronically Signed: Russ Holly MD at 13:20 EST ,
== END | disposition home or self-care (01) ==
PROVIDERS: PCP Family Medicine; Referring Provider Family Medicine; Visit Provider Family Medicine
DX: Z12.31 Encounter for screening mammogram for malignant neoplasm of breast (principal); Z80.3 Family history of malignant neoplasm of breast
CPT/HCPCS: 77063; 77067

== ENCOUNTER 2023-10-29 06:08 | Day surgery (SDC) | payer OTHER, SELFPAY ==
--- NOTE | 2023-10-29 06:28 | PCM.HP.BLA ---
History and Physical Date of Admission: 10/29/23 PATRICK PHILIPPE, is a 57 F who presents to the office today for discussion of EGD findings. Repeat EGD was indicated for gastric ulcers which were diagnosed on 05/08/22 EGD; treated with PPI increased to BID dosing x 2 mos and sucralfate x 1 month. Ulcers due to NSAIDs. Her symptoms--nausea, belching, abdominal pain, diarrhea--resolved with treatment. On 09/2022 EGD she had normal esophagus, one tiny 1 mm nonbleeding gastric ulcer, negative H pylori, gastritis. She is asymptomatic now. Hypergastrinemia -- 05/22/22 gastrin 929 (0-115), chromogranin A 459 (0-101). [place] to be elevated due to PPI. Her 06/10/22 octreotide scan was negative for neuroendocrine tumor. She initially presented 01/2022 with diarrhea, RUQ pain, and nausea. Her symptoms began in November 2021.? Her motrin was stopped and she was put on omeprazole. 04/2022 EGD revealed oozing gastric ulcers. 04/2022 colonoscopy revealed diverticular disease and tubular adenoma; repeat colonoscopy 04/2027. Gastrin and chromagranin A were elevated, but octreotide scan was negative. There is a FH carcinoid--mother in colon, aunt in appendix. 10/23/22 EGD Impression: ? - Normal esophagus. ? - Normal stomach. ? - Non-bleeding gastric ulcer with no stigmata ? of bleeding. 1 mm. Biopsied. ? - Normal second portion of the duodenum. MICROSCOPIC DIAGNOSIS Gastric ulcer, biopsy: Chronic gastritis. Negative H pylori ROS Const Constitutional: No fatigue ENT ENT: No difficulty swallowing Gastro GI: Positive for bloating, heartburn and excessive flatus; No abdominal pain, belching, change in bowel habits, change in stool character, coffee ground emesis, constipation, cramping, diarrhea, difficulty swallowing, feeling full early, incontinent of stools, Vomiting blood/hematemesis, Blood in stool, loose stools, Black,tarry stools, nausea/dyspepsia, pain with swallowing, vomiting or other Musc Musculoskeletal: Positive for joint pain and back pain Skin Skin: No yellowing of the eye or itchy eyes Psych Psychiatric: No anxiety and No depression Endo Endocrine: No fatigue Aller/Imm Allergy/Immunologic: No itchy eyes Neel/Lymp Hematologic/Lymphatic: No easy bleeding or easy bruising Exam Const General: cooperative and healthy appearing Nutritional Appearance: average body habitus Orientation: alert, awake and oriented x3 Quality Reporting Tobacco Screening ([facility] 138) Smoking Status: Former smoker Assessment and Plan Assessment and Plan (1) Hypergastrinemia: Status: Acute Plan: We reviewed EGD findings, good improvement, no worrisome findings. We will update gastrin and chromogranin A levels, will call her with results. She will need surveillance EGD to make sure that the ulcer is all way healed in its entirety. Orders: Orders Gastrin, Serum Today E16.4 - Increased secretion of gastrin Miscellaneous Lab Procedure Today E16.4 - Increased secretion of gastrin I have examined the patient and the H&P has been reviewed. There are no clinical changes since date of exam.
[2023-10-29 07:04] VITALS: BP 135/61; PULSE 65; RESP 18; TEMP 36.5; O2SAT 99; BMI 26.0
[2023-10-29] MEDS: Lactated Ringers 1,000 ML 15 ML IV (07:07)
[2023-10-29 07:26] LABS: Bedside Glucose 115 mg/dL (74-106)
--- NOTE | 2023-10-29 07:30 | IMM_PTH ---
PATIENT: PATRICK PHILIPPE LOC: [facility] U#:[id number] AGE/SX: 58/F ROOM: RE10/29/[address]: Dr. Gumaro Sandhu DO : 1965 BED: DIS: 10/29/2023 SPEC #: [id number] RECD: 10/29/23 14:25 STATUS: LAKISHA REEryn #: [id number] ALEJANDRA: 10/29/23 07:[address]: Gumaro Sandhu DEPT: IMMUNOHISTOCHEMISTRY RECD BY: Milagros Marie ENTERED: 10/29/23 14:25 SP TYPE: IMMUNO OTHR DR: Dr. Bret Gomez MD Tissues: Stomach, NOS Procedures: H Pylori (initial) PHYSICIAN & INSTITUTION [place] [address] SPECIMEN INFORMATION: Tissue Source: Gastric antrum Clinical Info: Hypergastrinemia Specimen Number: [id number] CPT code: 91770 METHODOLOGY: Deparaffinized sections of prefer/formalin-fixed tissue or PAP/DQ stained slides are incubated with monoclonal/polyclonal antibodies/oligonucleotide probes. Localization is made via biotin free immunoperoxidase method. Appropriate controls are performed and reacted as expected. Results on target cell population are indicated in the following table: RESULTS: ANTIBODY / CLONE RESULT H Pylori (polyclonal) negative These tests were developed and their performance characteristics determined by [facility]. They may not have been cleared or approved by the U.S. Food and Drug Administration. The FDA has determined that such clearance or approval is not necessary. The above immunohistochemical/dualISH markers are ordered and reviewed by the Pathologist. INTERPRETATION: Gastric antrum, biopsy: Negative for Helicobacter pylori organisms. SJ:ashly 10/30/2023
--- NOTE | 2023-10-29 07:30 | EGD_PTH ---
PATIENT: PATRICK PHILIPPE LOC: [facility] U#:[id number] AGE/SX: 58/F ROOM: RE10/29/[address]: Dr. Gumaro Sandhu DO : 1965 BED: DIS: 10/29/2023 SPEC #: [id number] RECD: 10/29/23 10:46 STATUS: LAKISHA YELENA #: [id number] ALEJANDRA: 10/29/23 07:[address]: Gumaro Sandhu DEPT: SURGICAL PATHOLOGY RECD BY: Amy Cortez ENTERED: 10/29/23 10:46 SP TYPE: EGD BIOPSY OT DR: Dr. Bret Gomez MD Tissues: Gastric mucous membrane Procedures: Surgery Specimen Level IV HEADER OPERATION: EGD with biopsy PRE-OP DIAGNOSIS: Hypergastrinemia TISSUE SUBMITTED: Gastric antrum MICROSCOPIC DIAGNOSIS Gastric antrum, biopsy: Mild gastritis. See microscopic description and comment. SJ:ashly 10/30/2023 COMMENT The results of immunohistochemistry for Helicobacter pylori will be reported separately ([id number]). MICROSCOPIC DESCRIPTION Slides are reviewed. The specimen shows fragments of gastric mucosa with chronic inflammatory cell infiltrates in the lamina propria consisting of lymphocytes and plasma cells, consistent with mild chronic gastritis. GROSS DESCRIPTION Received in fixative is one container labeled with the patient's name and designated gastric antrum. The specimen consists of multiple irregular fragments of light le soft tissue that in aggregate measure 1.0 x 0.5 x 0.1 cm. The specimen is totally submitted in one cassette. / AM:ashly 10/29/2023 TC:3 CPT: 19909
[2023-10-29 08:40] VITALS: BP 111/65; BP 135/61; PULSE 66; RESP 16; TEMP 36.4; O2SAT 96
--- NOTE | 2023-10-29 08:41 | OP.CCLET_ITS ---
10/29/2023 Bret Gomez [address] [place] [address] Re : Upper GI endoscopy procedure for Qi Irwin Dear Dr. Gomez This procedure was performed on Sunday, October 29, 2023. My impressions and recommendations are as follows: Impressions : - Normal esophagus. - Erythematous mucosa in the gastric body. Biopsied. - No gross lesions in the second portion of the duodenum. Recommendations : - Await pathology results. -Cholestyramine 1 g in a.m x 4 weeks -Metoclopramide 5 mg 3 times a day x 7 days - Continue present medications. My findings are described in the full procedure note, which is enclosed. If I can be of further assistance, please feel free to contact me at . Sincerely, Gumaro Sandhu, 10/29/2023 8:40:43 AM This report has been signed electronically.
--- NOTE | 2023-10-29 08:41 | OP.EGD_ITS ---
Patient Name: Qi Irwin Procedure Date: 10/29/2023 8:22 AM Date of : 1965 Age: 58 Procedure: Upper GI endoscopy Indications: Functional Dyspepsia Providers: Gumaro Sandhu DO Referring MD: Gumaro Sandhu DO Medicines: Monitored Anesthesia Care Patient Profile: This is a 58 year old female. Refer to note in patient chart for documentation of history and physical. Patient has symptoms of chronic epigastric abdominal pain and chronic dyspepsia. Complications: No immediate complications. Procedure: Pre-Anesthesia Assessment: - Prior to the procedure, a History and Physical was performed, and patient medications and allergies were reviewed. The patient is competent. The risks and benefits of the procedure and the sedation options and risks were discussed with the patient. All questions were answered and informed consent was obtained. Patient identification and proposed procedure were verified by the physician in the pre-procedure area. Mental Status Examination: alert and oriented. Airway Examination: normal oropharyngeal airway and neck mobility. Respiratory Examination: clear to auscultation. CV Examination: normal. Prophylactic Antibiotics: The patient does not require prophylactic antibiotics. Prior Anticoagulants: The patient has taken no anticoagulant or antiplatelet agents. ASA Grade Assessment: II - A patient with mild systemic disease. After reviewing the risks and benefits, the patient was deemed in satisfactory condition to undergo the procedure. The anesthesia plan was to use monitored anesthesia care (MAC). Immediately prior to administration of medications, the patient was re-assessed for adequacy to receive sedatives. The heart rate, respiratory rate, oxygen saturations, blood pressure, adequacy of pulmonary ventilation, and response to care were monitored throughout the procedure. The physical status of the patient was re-assessed after the procedure. After obtaining informed consent, the endoscope was passed under direct vision. Throughout the procedure, the patient's blood pressure, pulse, and oxygen saturations were monitored continuously. The gastroscope was introduced through the mouth, and advanced to the second part of duodenum. The upper GI endoscopy was accomplished without difficulty. The patient tolerated the procedure well. Scope In: 8:27:23 AM Scope Out: 8:31:21 AM Total Procedure Duration Time 0 hours 3 minutes 58 seconds Findings: The examined esophagus was normal. Patchy mildly erythematous mucosa without bleeding was found in the gastric body. Biopsies were taken with a cold forceps for histology. Biopsies were taken with a cold forceps for Helicobacter pylori testing. Verification of patient identification for the specimen was done. No gross lesions were noted in the second portion of the duodenum. Impression: - Normal esophagus. - Erythematous mucosa in the gastric body. Biopsied. - No gross lesions in the second portion of the duodenum. Recommendation: - Await pathology results. -Cholestyramine 1 g in a.m x 4 weeks -Metoclopramide 5 mg 3 times a day x 7 days - Continue present medications. Procedure Code(s): --- Professional --- 10466, Esophagogastroduodenoscopy, flexible, transoral; with biopsy, single or multiple CPT copyright 2021 [employer]. All rights reserved. The codes documented in this report are preliminary and upon industrial gas service helper review may be revised to meet current compliance requirements. Gumaro Sandhu DO 10/29/2023 8:40:43 AM This report has been signed electronically. Number of Addenda: 0 Note Initiated On: 10/29/2023 8:22 AM
[2023-10-29 08:45] VITALS: BP 101/68; BP 135/61; PULSE 59; RESP 16; O2SAT 95
[2023-10-29 08:50] VITALS: BP 109/60; BP 135/61; PULSE 59; RESP 16; TEMP 36.5; O2SAT 97
== END 2023-10-29 10:25 | disposition home or self-care (01) ==
LOC: EN 06:13 → AC 06:13
PROVIDERS: PCP Family Medicine; Referring Provider Family Medicine; Visit Provider Internal Medicine Gastroenterology
PROC: 0DJ08ZZ Inspection of Upper Intestinal Tract, Via Natural or Artificial Opening Endoscopic (ICD-10-PCS; CPT 43235; principal; 2023-10-29 07:25)
DX: E16.4 Increased secretion of gastrin (principal); Z87.891 Personal history of nicotine dependence; K31.89 Other diseases of stomach and duodenum; K29.70 Gastritis, unspecified, without bleeding
CPT/HCPCS: 43239; 82962; 88305; 88342; J7120; J2405

== ENCOUNTER 2024-02-17 13:00 | Outpatient (RCR) | payer OTHER, SELFPAY ==
--- NOTE | 2024-02-04 15:49 | HP.PTEVAL_ITS ---
Patient's Visit Information Visit Information Visit Information: PATRICK PHILIPPE is a 59 year old F referred to Physical Therapy by NICOLE To with a diagnosis of R shoulder pain. Date of Evaluation: 02/04/24 Physical Therapist: Ilya West DPT Visit Plan Frequency: 1x/Week Duration: 4 Weeks Plan: Start with light loading of scapular and periscapular musculature. Pt. to complete her current HEP for 1 week then follow up with PT. If doing well progress the loading of the tissues as tolerated. HEP: 02/04/24: mid row OTB, LAE OTB, standing shoulder IR OTB, SL shoulder ER no wt only if not painful. Pt. appears to have a RTC injury, most likely supraspinatus, but hard to full rule out long head of biceps. I want to progressively load the RTC to assist with remodeling, but also strengthening around it to reduce stress with all ADls and IADLs. Subjective Subjective: Pt. is here today for her initial evaluation with diagnosis of R s houlder pain. Pt. reports hurting her arm ~ 7 years ago when she jumped off a log and pulled her arm into extreme extension. PT Pt. has not had any imaging at this point in time. Pt. is R hand dominant. She started a steroid, but reports not much relief. 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 No N/T noted in her R shoulder. Pain is pretty constant, burning pain. She reports pain mostly in lateral deltoid region. Pt. reports being very active. 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 Pt. would like to get back to throwing objects, ie with dog and all of her ADLs. Pain R shoulder: Pain Intensity (Out of 10): 3 Pain Intensity Range: 0 and 6 Objective Objective: POSTURE: Pt. has normal head positioning, slight forward shoulder bilaterally. R shoulder slightly elevated compared to her L side. PALPATION: Pt. has increased tenderness at anterior lateral shoulder at subacromial space, not as much tenderness along bicipital grove. Tenderness along R UT as well. No pain throughout cervical palpation. NEURO: normal DTR and normal sensation throughout BUEs. ROM: PROM: ROM shoulder: flexion 180deg NE, abd 176deg NE, ER at 90deg of abd 90deg NE, IR at 90deg of abd 50deg increase NW. AROM: R shoulder: [id number] painful arc worst at mid range, abd 170 deg painful arc worst at mid range, functional IR L1 increase NW, functional ER C6 aberrant motion pain at end range. Pt. was very cautious with AROM in all ranges. MMT: L shoulder: 5/5 throughout. R shoulder: flexion 4+/5 increase NW, abd 4+/5 increase NW, ER 4-/5 increase NW, IR 5/5 NE, ext 5/5 NE. Worst pain with ER at side. Special Tests R Shoulder Lift Off Test - Subscapular Tear: Negative R Shoulder Empty Can - SS: Positive R Shoulder Belly Press - SupScap: Negative R Shoulder Neer - Impingement: Negative R Shoulder Hill Sudeep - Impingement: Positive R Shoulder Biceps Load Test - Labrum: Negative Balance/Special Test Scores Quick DASH Score: 36.3625 Goals Goal 1:: LTG: Pt. to be I with HEP. Goal Time Frame: 4-6 Weeks Goal 2:: STG: pt. to be able to sleep throughout the night with 0-1/10 pain in R shoulder. Goal Time Frame: 2-4 Weeks Goal 3:: LTG: pt. to have full R shoulder ROM without increase in symptoms. Goal Time Frame: 4-6 Weeks Goal 4:: LTG: Pt. to be able to complete all recreational activities and home chores without increase in symptoms. Goal Time Frame: 4-6 Weeks Goal 5:: LTG: Pt. to have increased RTC and scapular strength to 5/5 throughout without increase in symptoms. Goal Time Frame: 4-6 Weeks Rehabilitation Potential Physical Therapy Diagnosis: Pt. has signs and symptoms consistent with R shoulder pain. Pt. has good ROM of her R shoulder both passively and actively, but does have increased pain with AROM. She has some weakness with ER, flexion and abduction with pain with will, but worst with ER motion. I would like to work on strengthening of her RTC and scapular muscular to reduce stress to ER musculature with all daily activities, but also slowly increase load to ER musculature in order to remodel her tissue. Rehabilitation Potential: Good Anticipated Interventions Patient/Client Instruction: Educate patient on: Condition, Plan of Care, Risk Factors and Benefits of Fitness Program For the Purpose of:: To improve decision making, To facilitate caregiver knowledge, To improve self management, To prevent re-injury, To improve ability to perform tasks related to life management and To improve tolerance to ADL's Therapeutic Exercise to Include: Strength training, Power training, Postural training, Flexibilty training, Passive ROM and Active ROM For the Purpose of:: To decrease pain, To increase ROM, To improve nutrient delivery to tissue, To increase oxygenation perfusion, To improve muscle performance and motor function, To improve ability to perform ADL's, To increase tolerance to activity/condition/position, To improve performance and independence with ADL's, To decrease level of supervision to perform tasks and To improve ability of physical actions for home/community/work/leisure Manual Therapy Techniques to Include: Mobilization and Passive ROM For the Purpose of:: To decrease pain, To decrease swelling/inflammation and To increase ROM Cryotherapy (ice pack, ice massage): Yes Thermo therapy (hot pack): Yes For the Purpose of:: To decrease pain, To decrease swelling/inflammation and To increase ROM Text: Thank you for the opportunity to evaluate your patient. For Medicare and Medicare HMO plans, please review the plan of care and approve it. It will need to be FAXED BACK to us at [phone] for Medicare purposes. For Medicare only, by signing this I certify the plan of care. Please let me know if there are questions or concerns regarding this plan of care. Physician Signature: Date:
--- NOTE | 2024-02-17 14:44 | HP.PTREVAL_ITS ---
Re-Evaluation Intro: Irena Olmos, LACHELLE-C, It has been my pleasure to treat PATRICK PHILIPPE over the last 3 visits for R shoulder pain. Please see the progress note below for an update on the physical therapy plan of care! Subjective Subjective: Pt reports continued pain and burning in R shoulder, exercises at home have aggravated pain slightly. Notes grinding and creaking with wall slides. Sleeping has improved, but any kind of movement is still painful. Objective Objective/Function: ROM: R - flex 165, ABD 110 painful, IR to T6, ER to base of occiput, hypomobility of thoracic spine MMT: did not test d/t pain with ROM Pt required multiple movement modifications to avoid pain and compensation, mod difficulty coordinating and performing scapular retractions. Pt does not demo any severe capsular restrictions and is able to achieve near full ROM, but with pain, especially with ABD irritating the shoulder when resisting gravity. AAROM for ABD decreased pain with movement. Overall, pt has made little improvement with pain and ADLs and pt agreed to contact her doctor to decide next steps since PT has not created improvement. Plan Plan Plan: Pt to return to doctor to discuss next steps. Will hold off on d/c pt until after DrAlicia visit just in case he deems PT still appropriate. Updated HEP: AAROM ABD, scap retract, seated thoracic ext, flex table slides Balance/Gait/Functional tests Balance/Special Test Scores Quick DASH Score: 36.3625 Goals Goals Goal 1:: LTG: Pt. to be I with HEP. Goal Time Frame: 4-6 Weeks Goal 2:: STG: pt. to be able to sleep throughout the night with 0-1/10 pain in R shoulder. Goal Time Frame: 2-4 Weeks Goal 3:: LTG: pt. to have full R shoulder ROM without increase in symptoms. Goal Time Frame: 4-6 Weeks Goal 4:: LTG: Pt. to be able to complete all recreational activities and home chores without increase in symptoms. Goal Time Frame: 4-6 Weeks Goal 5:: LTG: Pt. to have increased RTC and scapular strength to 5/5 throughout without increase in symptoms. Goal Time Frame: 4-6 Weeks Anticipated Interventions Anticipated Interventions Patient/Client Instruction: Educate patient on: Condition, Plan of Care, Risk Factors and Benefits of Fitness Program For the Purpose of:: To improve decision making, To facilitate caregiver knowled ge, To improve self management, To prevent re-injury, To improve ability to perform tasks related to life management and To improve tolerance to ADL's Therapeutic Exercise to Include: Strength training, Power training, Postural training, Flexibilty training, Passive ROM and Active ROM For the Purpose of:: To decrease pain, To increase ROM, To improve nutrient delivery to tissue, To increase oxygenation perfusion, To improve muscle performance and motor function, To improve ability to perform ADL's, To increase tolerance to activity/condition/position, To improve performance and independence with ADL's, To decrease level of supervision to perform tasks and To improve ability of physical actions for home/community/work/leisure Manual Therapy Techniques to Include: Mobilization and Passive ROM For the Purpose of:: To decrease pain, To decrease swelling/inflammation and To increase ROM Cryotherapy (ice pack, ice massage): Yes Thermo therapy (hot pack): Yes For the Purpose of:: To decrease pain, To decrease swelling/inflammation and To increase ROM Re-Evaluation Ending Re-evaluation ending: Please do not hesitate to contact me at [phone] by phone or if you have questions or concerns regarding this new plan of care! Sincerely, Ilya West DPT
== END 2024-02-17 19:00 | disposition home or self-care (01) ==
LOC: PT 13:00
PROVIDERS: PCP Family Medicine; Referring Provider Nurse Practitioner Family; Visit Provider Nurse Practitioner Family
DX: M25.511 Pain in right shoulder (principal)
CPT/HCPCS: 97110; 97161; 97164

== ENCOUNTER → 2024-02-23 | Outpatient (CLI) | payer OTHER, SELFPAY ==
--- NOTE | 2024-02-23 10:49 | RAD_ITS ---
STUDY: X-RAY - RIGHT SHOULDER REASON FOR EXAM: Female, 59 years old. Pain. TECHNIQUE: 4 views of the right shoulder. COMPARISON: None. FINDINGS: Normal glenohumeral articulation. There is mild acromioclavicular arthrosis. Normal acromion. Normal humeral head and visualized proximal humerus. The soft tissue structures are unremarkable. There is no demonstrated fracture. Normal visualized pulmonary apex. RAD/Shoulder min 2 Views IMPRESSION: Mild acromioclavicular arthrosis. No demonstrated fracture. Electronically Signed: Rafy Nolasco MD at 13:43 EDT ,
== END | disposition home or self-care (01) ==
LOC: MTRAD 10:45
PROVIDERS: PCP Family Medicine; Referring Provider Nurse Practitioner Family; Visit Provider Nurse Practitioner Family
DX: M25.511 Pain in right shoulder (principal)
CPT/HCPCS: 73030

== ENCOUNTER → 2024-03-08 | Outpatient (CLI) | payer OTHER, SELFPAY ==
--- NOTE | 2024-03-08 08:00 | MRI_ITS ---
STUDY: MRI RIGHT SHOULDER REASON FOR EXAM: Female, 59 years old. Labral tear/rotator cuff. TECHNIQUE: Standardized fat and water weighted pulse sequences were obtained in all 3 orthogonal planes. COMPARISON: Right shoulder radiographs dated 02/23/2024. FINDINGS: There is a full-thickness tear of the distal supraspinatus tendon, overall measuring 1.3 cm in length (coronal T2 series 6 images 12-14) and 1.1 cm in width (axial PD series 3 images 13-15). Normal infraspinatus tendon. Normal subscapularis tendon. Normal teres minor tendon. Normal supraspinatus muscle. Normal infraspinatus muscle. Normal subscapularis muscle. Normal teres minor muscle. Normal glenohumeral articulation. Normal humeral head and visualized proximal humerus. Normal biceps labral complex. Normal intracapsular long biceps tendon. Normal labrum. Normal capsulo-ligamentous complex. Normal rotator interval. There is hypertrophic acromioclavicular arthrosis, with inferior osteophyte formation, with mild effacement of the supraspinatus myotendinous junction. There is a Type II morphology (curved), with a neutral orientation. There is trace subacromial-subdeltoid bursal fluid. Normal visualized coracohumeral and coracoacromial ligaments. Normal quadrilateral space. Normal axillary space. Normal deltoid muscle. Normal trapezius muscle. MRI/Upper Ext Joint Only(Routine) IMPRESSION: 1.3 x 1.1 cm full-thickness tear of the distal supraspinatus tendon. Hypertrophic acromioclavicular arthrosis, with inferior osteophyte formation, with mild effacement of the supraspinatus myotendinous junction. Trace subacromial-subdeltoid bursal fluid. Electronically Signed: Rafy Nolasco MD at 14:17 EDT ,
== END | disposition home or self-care (01) ==
LOC: MRI 07:30
PROVIDERS: PCP Family Medicine; Referring Provider Family Medicine; Visit Provider Family Medicine
DX: M25.511 Pain in right shoulder (principal)
CPT/HCPCS: 73221

== ENCOUNTER → 2024-03-16 | Outpatient (CLI) | payer OTHER, SELFPAY ==
--- NOTE | 2024-03-16 11:33 | RAD_ITS ---
STUDY: X-RAY CHEST REASON FOR EXAM: Female, 59 years old. Preoperative evaluation. TECHNIQUE: Frontal and lateral views of the chest. COMPARISON: 09/06/2006 FINDINGS: Stable mild hyperinflation. There is no demonstrated pleural abnormality. Normal size heart. Normal mediastinum and jaden. Normal visualized pulmonary arteries. Normal visualized aortic arch and descending thoracic aorta. Diffuse mild thoracic spondylosis. Normal visualized ribs, clavicles, and shoulders. No abnormality of the visualized soft tissue structures of the upper abdomen. RAD/Chest PA and Lateral IMPRESSION: Mild hyperinflation with no acute or active cardiopulmonary disease. Electronically Signed: Pieter Ricardo MD at 10:06 EDT ,
[2024-03-16 12:33] LABS: Absolute Lymphocyte Count 1.92 X10^3/uL (0.83-4.51); Absolute Neutrophil Count 3.8 X10^3/uL (2.0-7.7); Basophil# 0.02 X10^3/uL; Basophil% 0.3 % (0-1); Eosinophil# 0.04 X10^3/uL; Eosinophils% 0.6 % (0-5); Hematocrit 42.1 % (37-47); Lymphocyte # 1.92 X10^3/ul (0.83-4.51); Lymphocyte % 31.1 % (19-41); Mean Corp Hgb Conc 33.3 g/dL (32-36); Mean Corpuscular Hgb 28.8 pg (27.0-32.0); Mean Corpuscular Volume 86.6 fL (81-99); Mean Platelet Vol. 10.4 fl (6.2-12.0); Monocyte% 6.5 % (0-10); NRBC Flagged by Analyzer 0 % (0-5); Neutrophil # 3.79 X10^3/uL (2.7-7.7); Neutrophil % 61.3 % (47-70); Platelet Count 346 K/mm3 (150-450); RBC Distribution Width CV 11.9 % (11.6-14.6); RBC Distribution Width SD 37.8 fl (35.1-43.9); Red Blood Count 4.86 M/mm3 (4.2-5.4); White Blood Count 6.2 K/mm3 (4.4-11.0)
[2024-03-16 12:55] LABS: Anion Gap 5 (5-15); BUN 16 mg/dL (7-18); BUN/Creat Ratio 22.4 RATIO (10-20); Calcium,Total 9.4 mg/dL (8.5-10.1); Chloride 102 mmol/L (98-107); Creatinine, Serum 0.72 mg/dL (0.55-1.02); EST Glomerular Filtration Rate 88 mL/min (>60); Est Glom Filt Rate - Afr Amer 107 mL/min (>60); Glucose 110 mg/dL (74-106); Potassium 3.6 mmol/L (3.5-5.1); Sodium Level 136 mmol/L (136-145)
== END | disposition home or self-care (01) ==
LOC: PSN 11:20
PROVIDERS: PCP Family Medicine; Referring Provider Orthopaedic Surgery; Visit Provider Orthopaedic Surgery
DX: Z01.810 Encounter for preprocedural cardiovascular examination (principal); Z01.811 Encounter for preprocedural respiratory examination; Z01.818 Encounter for other preprocedural examination
CPT/HCPCS: 36415; 71046; 80048; 83036; 85025; 93005

== ENCOUNTER 2024-03-21 03:26 | Emergency (ER) | payer OTHER, SELFPAY ==
[2024-03-21 03:27] VITALS: BP 145/85; PULSE 85; RESP 18; TEMP 36.7; O2SAT 95; BMI 26.5
--- NOTE | 2024-03-21 03:39 | EX.ED.UPPERE ---
HPI History of Present Illness Chief Complaint: Upper Extremity Injury Informant: patient and spouse/S.O. Narrative Narrative: Patient is a 59-year-old female with past medical history of GERD hypertension and [id number] diabetes. She was seen by orthopedics secondary to recurrent right shoulder pain and MRI showed a supraspinatus tendon tear. She underwent surgery on Friday secondary to this. She states she received a nerve block for the surgery. She reports that the block lasted 24 hours and then began to slowly dissipate. She states she began taking the prescribed oxycodone for pain control but despite doing this pain is continued to worsen. She states that there is been no accidental trauma since the surgery but as her pain cannot be controlled at home she presents for evaluation [facility] Medical History Anxiety Arthritis Back pain Chest pain Depression Diabetes Easy bruising Excessive bleeding Fatty liver FH: colon cancer Former smoker Gastric reflux GERD (gastroesophageal reflux disease) High cholesterol History of hiatal hernia History of IBS History of stress test History of ulceration Hx of colonic polyp Hypertension IBS (irritable bowel syndrome) Leg cramps Post-menopausal Wears glasses Home Medications lisinopril 20 mg-hydrochlorothiazide 25 mg tablet 1 tab PO DAILY 06/11/14 [History Last Taken 06/11/14 09:00 1 TAB] multivitamin 1 tab PO DAILY 02/06/21 [History Last Taken Unknown] calcium carbonate 600 mg-vitamin D3 10 mcg (400 unit) tablet (Calcium 600 + D(3)) 1 tab PO DAILY 05/01/22 [History Last Taken Unknown] omeprazole 40 mg capsule,delayed release 40 mg PO DAILY Heartburn 30 days #30 caps 08/27/23 [Rx Last Taken 10/29/23 04:30] metformin 500 mg tablet 250 mg PO BID 10/28/23 [History Last Taken Unknown] sucralfate 1 gram tablet 1 g PO DAILY PRN ulcers 02/13/24 [History Last Taken Unknown] gabapentin 300 mg capsule 300 mg PO TID 14 days #42 caps 03/21/24 [Rx Last Taken Unknown] lorazepam 1 mg tablet (Ativan) 1 mg PO TID PRN Muscle pain/spasm 5 days #15 tabs 03/21/24 [Rx Last Taken Unknown] oxycodone 5 mg tablet 5 - 10 mg PO Q4H PRN PRN pain 03/21/24 [History Last Taken Unknown] pravastatin 40 mg tablet 40 mg PO DAILY 03/21/24 [History Last Taken Unknown] Allergy/AdvReac Type Severity Reaction Status Date / Time metronidazole Allergy Mild Rash Verified 03/21/24 03:31 Family History Mother Colon cancer CAD (coronary artery disease) Hypertension Aunt Colon cancer Father CAD (coronary artery disease) Surgical History (Updated 03/21/24 @ 03:30 by Aurora Pimentel) H/O rotator cuff surgery History of esophagogastroduodenoscopy (EGD) S/P knee surgery S/P laparoscopic cholecystectomy Social History Smoking Status: Former smoker alcohol intake: current alcohol intake frequency: holidays/special occasions only ROS ROS ED Constitutional Constitutional ED: Denies chills or fever(s) ENT ENT ED: Denies sore throat Cardiovascular Cardiovascular: Denies chest pain Respiratory/Chest Respiratory/Chest: Denies cough or dyspnea Gastrointestinal Gastrointestinal: Denies abdominal pain, diarrhea, nausea or vomiting Genitourinary Genitourinary ED: Denies dysuria Musculoskeletal Musculoskeletal: Reports other Details: Positive right shoulder pain Integumentary Denies rash Neurologic Neurologic: Denies headache(s) or paresthesias Hematologic/Lymphatic Hematologic/Lymphatic: Denies easy bleeding or easy bruising EXAM Physical Exam Const Vital Signs: 03/21/24 03:27 Temperature 98.0 F Temperature Source Temporal Pulse Rate 85 Respiratory Rate 18 Blood Pressure 145/85 H Blood Pressure Mean 105 Pulse Ox 95 Oxygen Delivery Method Room Air Positive well nourished and well developed General Appearance ED: well developed HEENT HEENT Narrative: Normocephalic atraumatic Eyes PERRL and EOMs intact bilaterally Neck supple Resp normal respiratory effort and clear to auscultation bilaterally Cardio regular rate and regular rhythm Extremity Extremity Narrative: Right upper extremity is neurovascularly intact; AIN/PIN are intact and normal Right radial pulse is normal and patient's capillary refill at the digits on the right is less than 2 seconds Compartments are soft and compressible going against compartment syndrome Patient has postoperative changes to the right shoulder which are clean dry and intact without secondary findings to suggest infection Active range of motion of the right arm is decreased secondary to pain Remainder of the exam is normal Neuro oriented x3, CN's II-XII intact bilaterally and no sensory deficits noted Sensorium / Orientation: alert Psych mental status grossly normal Skin no rashes or lesions noted Skin Narrative: Postoperative changes to the right shoulder that are clean dry and intact as documented above with normal capillary refill MDM MDM MDM Narrative Medical decision making narrative: Patient arrived to the ER slightly hypertensive otherwise with stable vitals. She had recent surgery roughly 36 hours ago and reported that she had a nerve block which worked for the past 24 hours. She denied any repeat trauma since the surgery but just states that there has been slowly increasing pain that is not responding to her oxycodone. Physical exam shows no findings concerning for compartment syndrome or postoperative infection. Also there is no obvious findings to suggest hematoma or seroma. Therefore this time I do not feel there is need for laboratory or repeat imaging. The patient was given IV Dilaudid as well as Ativan and oral gabapentin. On repeat evaluation she states her pain is much improved. Therefore at this time is my concern for postoperative infection versus compartment syndrome versus seroma versus hematoma is low I do not feel there is need for testing. Patient can continue the oxycodone but I will add gabapentin and Valium for further symptom control and she is otherwise safe for discharge. History & Record Review Discussion w/independent historian: Patient and Significant other Discharge Plan Triage Chief Complaint: Upper Extremity Injury ED Provider: Esau Tomas Dx/Rx/DC Orders Clinical Impression: Post-operative pain, Non-insulin dependent diabetes mellitus, GERD (gastroesophageal reflux disease), Hypertension Instructions: Pain Management After Surgery, Rotator Cuff Repair Open Dc Prescriptions: New lorazepam [Ativan] 1 mg tablet 1 mg PO TID PRN (Reason: Muscle pain/spasm) 5 Days Qty: 15 0RF gabapentin 300 mg capsule 300 mg PO TID 14 Days Qty: 42 0RF No Action multivitamin Tablet 1 tab PO DAILY lisinopril-hydrochlorothiazide 1 TABLET tablet 1 tab PO DAILY Patient Comments: heart/ blood pressure calcium carbonate-vitamin D3 [Calcium 600 + D(3)] 600 mg-10 mcg (400 unit) Tablet 1 tab PO DAILY metformin 500 mg tablet 250 mg PO BID sucralfate 1 gram tablet 1 g PO DAILY PRN (Reason: ulcers) Patient Comments: TAKE 1 TABLET BY MOUTHNTHREE TIMES A DAY DIRECTED oxycodone 5 mg tablet 5 - 10 mg PO Q4H PRN PRN (Reason: pain) pravastatin 40 mg tablet 40 mg PO DAILY omeprazole 40 mg capsule,delayed release(DR/EC) 40 mg PO DAILY 30 Days Qty: 30 6RF Primary Care Provider: Bret Gomez Referrals: Bret Gomez MD [Primary Care Provider] - Activity Restrictions/Additional Instructions: Please continue your oxycodone as 1 to 2 pills every 4-6 hours for pain control. Add the Ativan up to 3 times a day for improved symptom control and take the gabapentin 3 times a day on a scheduled basis to help control pain. Follow-up with orthopedic surgeon as previously directed and return to the ER should you have any further concerns Disposition Disposition: Home, Self Care
[2024-03-21] MEDS: Ondansetron 4 MG/2 ML Vial IV (03:44)
[2024-03-21] MEDS: HYDROmorphone 1 MG/ML Syringe IV (03:44)
[2024-03-21] MEDS: LORazepam 2 MG/ML Syringe 1 MG IV (03:46)
[2024-03-21] MEDS: Gabapentin 300 MG Capsule PO (03:51)
[2024-03-21] MEDS: HYDROmorphone 0.5 MG/0.5 ML SYRINGE IV (04:19)
[2024-03-21 05:12] VITALS: BP 127/68; PULSE 82; RESP 16; TEMP 36.5; O2SAT 91
== END 2024-03-21 05:12 | disposition home or self-care (01) ==
PROVIDERS: Emergency Provider Emergency Medicine; PCP Family Medicine; Visit Provider Emergency Medicine
DX: G89.18 Other acute postprocedural pain (principal); E11.9 Type 2 diabetes mellitus without complications; Z87.891 Personal history of nicotine dependence; K21.9 Gastro-esophageal reflux disease without esophagitis; I10 Essential (primary) hypertension; E78.00 Pure hypercholesterolemia, unspecified; Z79.899 Other long term (current) drug therapy; Z79.84 Long term (current) use of oral hypoglycemic drugs
CPT/HCPCS: 96374; 96375; 96376; 99283; A4216; J2405

== ENCOUNTER → 2024-07-06 | Outpatient (CLI) | payer OTHER, SELFPAY | END | disposition home or self-care (01) | LOC: LAB 14:09 | PROVIDERS: PCP Family Medicine; Referring Provider Internal Medicine Gastroenterology; Visit Provider Internal Medicine Gastroenterology | DX: Z00.00 Encounter for general adult medical examination without abnormal findings (principal) ==

== ENCOUNTER → 2024-07-08 | Outpatient (CLI) | payer OTHER, SELFPAY ==
[2024-07-12 14:09] LABS: Pancreatic Elastase, Fecal > 800 (>200)
[2024-07-19 19:07] LABS: Calprotectin, Stool 149 ug/g (0-120); Fats, Neutral Normal (.); Fats, Total Normal (.)
== END | disposition home or self-care (01) ==
LOC: LABSPEC 12:11
PROVIDERS: PCP Family Medicine; Referring Provider Internal Medicine Gastroenterology; Visit Provider Internal Medicine Gastroenterology
DX: K58.9 Irritable bowel syndrome, unspecified (principal); R19.7 Diarrhea, unspecified; K57.30 Diverticulosis of large intestine without perforation or abscess without bleeding
CPT/HCPCS: 82274; 82653; 82705; 83630; 83993; 87177; 87209; 87329; 87506

== ENCOUNTER 2024-07-16 11:54 | Day surgery (SDC) | payer OTHER, SELFPAY ==
[2024-07-16] VITALS (8 sets, daily range): BP systolic 96–143; BP diastolic 56–76; PULSE 62–80; RESP 16–18; TEMP 36.1–36.9; O2SAT 98–100; BMI 23.4
[2024-07-16] MEDS: Lactated Ringers 1,000 ML 15 ML IV (12:33)
--- NOTE | 2024-07-16 12:47 | PCM.PRE.AN2 ---
ASA Classification* ASA Classification ASA Classification: 2 Assessment & Plan Anesthesia* Anesthesia Assessment Anesthesia Assessment: Discussed sedation and/or anesthesia options, risks, benefits, and alternatives with patient/parents/legal guardian/POA. Questions invited. The patient/parents/legal guardian/POA seems to understand and agrees to proceed with anesthesia plan. Reviewed the physical assessment, medical history, allergy history and patient home medications list prior to surgery/procedure/anesthetic and documented any changes. Performed airway and anesthesia risk assessments. Anesthesia Type Anesthesia Type: MAC Anesthesia Focused Assessment* Temperature: 97.4 F Pulse Rate: 66 Blood Pressure: 143/76 Respiratory Rate: 16 Pulse Ox: 100 Airway Assessment Mouth opens: >3 cm Mallampati Score: II Focused Labs Anesthesia Preop lab: CBC WBC 6.2 K/mm3 (4.4-11.0) 03/16/24 11:23 RBC 4.86 M/mm3 (4.2-5.4) 03/16/24 11:23 Hgb 14.0 g/dL (12.0-15.0) 03/16/24 11:23 Hct 42.1 % (37-47) 03/16/24 11:23 Plt Count 346 K/mm3 (150-450) 03/16/24 11:23 CHEMISTRY Potassium 3.6 mmol/L (3.5-5.1) 03/16/24 11:23 Sodium 136 mmol/L (136-145) 03/16/24 11:23 BUN 16 mg/dL (7-18) 03/16/24 11:23 Creatinine 0.72 mg/dL (0.55-1.02) 03/16/24 11:23 Glucose 110 mg/dL (74-106) H 03/16/24 11:23 POC Glucose 115 mg/dL (74-106) H 10/29/23 06:56 TSH 0.87 uIU/mL (0.358-3.74) 05/22/22 08:47 COAG PT 12.5 SECONDS (11.7-14.9) 02/08/21 13:10 Pre-Assessment Diagnosis/Proposed Procedure Planned Operative Procedure(s): EGD Anesthesia History 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 When Was Last Pacemaker Check QUESTION #4 FULL TEXT: You/Your Family Experience fever (hyperthermia) with Anesthesia Last Oral Intake Last Oral intake: Last Oral Intake NPO since 18:00 07/16/24 12:23 Meds taken in AM with sips of water? 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 engine operator: PONV - dinkey engine operator Female Yes 07/13/24 08:37 HX of Motion Sickness No 07/13/24 08:37 HX of N/V After Surgery No 07/13/24 08:37 Non-Smoker Yes 07/13/24 08:37 Duration of Surgery greater No 07/13/24 08:37 than 60 minutes Number of Risk Factors 2 07/13/24 08:37 PONV Score Moderate Risk 07/13/24 08:37 Height & Weight Height & Weight: Anesthesia: Height & Weight Height 5 ft 9 in 07/16/24 12:23 Weight: 72 kg 07/16/24 12:23 Body Mass Index (BMI) 23.4 07/16/24 12:23 Respiratory Assessment Respiratory Assessment - dinkey engine operator: Respiratory Tract Infection Hx - dinkey engine operator Hx Respiratory Tract Infection No 07/13/24 08:37 STOP Sleep Apnea STOP Sleep Apnea - dinkey engine operator: STOP Sleep Apnea - dinkey engine operator Hx Hypertension Yes: CONTROLLED WITH MED 07/13/24 08:37 Hx Sleep Apnea No 07/13/24 08:37 CPAP No 07/13/24 08:37 BIPAP No 07/13/24 08:37 Do you snore loudly (louder No 07/13/24 08:37 than talking or can be heard Do you often feel tired/ No 07/13/24 08:37 fatigued/ sleepy during daytime? Has anyone observed you stop No 07/13/24 08:37 breathing during sleep? STOP Results Negative 07/13/24 08:37 QUESTION #5 FULL TEXT : Do you snore loudly (louder than talking or can be heard through closed doors)? 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 Specify any problems Hx of Preganancy in last 3 No 07/13/24 08:37 Months Nurse Filling Out Transfusion DSCHRIBER 07/13/24 08:37 & Questions: Date: 07/13/24 07/13/24 08:37 Time: 08:39 07/13/24 08:37 Patient unable to answer at this time (ie. confused, unrespo /Reproduction History /Reproductive History - dinkey engine operator: /Reproductive Hx- dinkey engine operator Hx Now No 07/13/24 08:37 Gestational Age (in weeks): EDC: Hx Hx Para Hx Section SAB No 07/13/24 08:37 Active Medications Active Medications: Current Medications Generic Name Dose Route Start Last Admin Trade Name Freq PRN Reason Stop Dose Admin Lactated Ringer's 1,000 mls @ 15 mls/hr 07/16/24 12:00 07/16/24 12:33 IV 15 mls/hr .Q48H DAX Administration PFSH Medical History Fatty liver High cholesterol Easy bruising History of hiatal hernia History of ulceration Leg cramps Wears glasses Post-menopausal Depression Anxiety Back pain History of IBS Gastric reflux Former smoker History of stress test FH: colon cancer Hx of colonic polyp GERD (gastroesophageal reflux disease) IBS (irritable bowel syndrome) Arthritis Diabetes Chest pain Hypertension Home Medications ?Medication ?Instructions ?Recorded ?Last Taken ?Type lisinopril 20 1 tab PO DAILY 06/11/14 07/15/24 History mg-hydrochlorothiazide 25 mg tablet multivitamin 1 tab PO DAILY 02/06/21 07/15/24 History calcium carbonate 600 mg-vitamin 1 tab PO DAILY 05/01/22 07/15/24 History D3 10 mcg (400 unit) tablet (Calcium 600 + D(3)) metformin 500 mg tablet 250 mg PO BID 10/28/23 07/15/24 History sucralfate 1 gram tablet 1 g PO TID ulcers 02/13/24 07/15/24 History pravastatin 40 mg tablet 40 mg PO QHS 03/21/24 07/15/24 History omeprazole 40 mg capsule,delayed 40 mg PO BID #60 caps 06/04/24 07/16/24 Rx release Allergy/AdvReac Type Severity Reaction Status Date / Time metronidazole Allergy Mild Rash Verified 07/16/24 12:20 Family History Mother Colon cancer CAD (coronary artery disease) Hypertension Aunt Colon cancer Father CAD (coronary artery disease) Surgical History H/O rotator cuff surgery History of esophagogastroduodenoscopy (EGD) S/P laparoscopic cholecystectomy S/P knee surgery Social History Smoking Status: Former smoker alcohol intake: current alcohol intake frequency: holidays/special occasions only Review of Systems (Anesthesia) ROS Narrative System reviewed and no additional complaints, except as documented.
[2024-07-16 12:51] LABS: Bedside Glucose 97 mg/dL (74-106)
--- NOTE | 2024-07-16 13:05 | HP.PCM_ITS ---
History and Physical Date of Admission: 07/16/24 59 F who presents to the office today for FH mother colon cancer Prior workup: ? CT abd/pel 01.25.22 right lung nodule, stable; colonic diverticulosis; moderate colonic fecal material *BGI established 02.12.22 with loose stools RUQ discomfort nausea and flatulence with onset in November. Hyoscyamine ineffective, Lomotil helpful. ? EGD/colonoscopy 05.08.22 EGD irregular Zline; two oozing cratered gastric ulcers. H.Pylori WNL ? Colonoscopy diverticulosis; 5mm TA polyp; congested mucosa OV 05.15.22 start sucralfate and omeprazole. ? Biochemical 05.22.22 CBC, CMP, prolactin, PTHIN, TSH without pertinent abnormality ? Chromogranin A H459.2, gastrin H929 ? LILY 06.10.22 WNL OV 08.28.22 reschedule EGD; LILY scan negative. ? EGD 10.23.22 non-bleeding superficial gastric ulcer. H.Pylori WNL OV 11.06.22 update biochemical results ? Biochemical 11.06.22 gastrin, chromogranin A WNL ? Biochemical 09.01.23 Chromogranin A H584.9, Gastrin H329 ? EGD 10.29.23 gastritis. H.Pylori WNL Contact, 12.10.23 with results. OV 02.13.24 Sx overall improved. Daily BM formed most of time, occasional diarrhea with certain foods. Occasional bloating. Omeprazole 40 mg daily and sucralfate 1 gm PRN for RUQ abdominal pain effective. ROS Const Constitutional: No fatigue, fever(s), frequent falls, headache(s), weakness or weight change ENT ENT: No headache(s) or difficulty swallowing Cardio Cardiology: No leg pain with exertion Gastro GI: Positive for bloating; No abdominal pain, change in bowel habits, constipation, diarrhea, heartburn, difficulty swallowing, excessive flatus, Vomiting blood/hematemesis, Blood in stool, nausea/dyspepsia or vomiting Musc Musculoskeletal: Positive for muscle weakness, stiffness and Arthritis; No joint pain, back pain, joint swelling, muscle cramps, numbness, tingling, sciatica, restless legs, leg pain at night or leg pain with exertion Skin Skin: No dry skin, lesions, itchy eyes or rash Neuro Neurology: No behavioral changes, unsteady gait/balance, weakness, frequent falls, headache(s), numbness, tingling, restless legs, tremor(s), Increased tone in limbs, paralysis or seizures Psych Psychiatric: Positive for anxiety, No behavioral changes, Positive for depression, No paranoia, No Compulsive Behavior, No hyperactivity, No inattentiveness, No obsessions/compulsions, No Temper Tantrums and No suicidal ideation Endo Endocrine: No fatigue or weight change Aller/Imm Allergy/Immunologic: No itchy eyes Neel/Lymp Hematologic/Lymphatic: No easy bleeding or easy bruising Exam Const General: cooperative and healthy appearing Nutritional Appearance: average body habitus Orientation: alert, awake and oriented x3 Quality Reporting Tobacco Screening ([facility] 138) Smoking Status: Former smoker Assessment and Plan Assessment and Plan (1) Hypergastrinemia: Status: Acute (2) Gastric ulcer: Status: Acute Plan: We discussed EGD and colonoscopy findings and biopsy results. Negative for H pylori. Will treat with one month of sucralfate QID and will have her increase omeprazole 40 mg to BID x 2 mos then back to omeprazole 40 mg daily. Will check gastrin level because ulcers and FH neuroendocrine tumors, pt is very worried about this. (3) Diverticula of colon: Status: Acute Plan: Discussed this diagnosis in detail also. Recommendation is to avoid constipation. (4) GERD (gastroesophageal reflux disease): Status: Acute Plan: as above I have examined the patient and the H&P has been reviewed. There are no clinical changes since date of exam.
--- NOTE | 2024-07-16 13:15 | IMM_PTH ---
PATIENT: PATRICK PHILIPPE LOC: EN U#:[id number] AGE/SX: 59/F ROOM: RE07/16/[address]: Dr. Gumaro Sandhu DO : 1965 BED: DIS: 07/16/2024 SPEC #: [id number] RECD: 07/19/24 08:32 STATUS: LAKISHA REEryn #: [id number] ALEJANDRA: 07/16/24 13:[address]: Gumaro Sandhu DEPT: IMMUNOHISTOCHEMISTRY RECD BY: Ori Billy ENTERED: 07/19/24 08:32 SP TYPE: IMMUNO OTHR DR: Dr. Bret Gomez MD Tissues: A - Gastric mucous membrane Procedures: H Pylori (initial) PHYSICIAN & INSTITUTION [place] [id number] SPECIMEN INFORMATION: Tissue Source: A- Antrum biopsy Clinical Info: Hypergastrinemia, gastric ulcer, diverticula colon, GERD Specimen Number: [id number] CPT code: 43648 METHODOLOGY: Deparaffinized sections of prefer/formalin-fixed tissue or PAP/DQ stained slides are incubated with monoclonal/polyclonal antibodies/oligonucleotide probes. Localization is made via biotin free immunoperoxidase method. Appropriate controls are performed and reacted as expected. Results on target cell population are indicated in the following table: RESULTS: ANTIBODY / CLONE RESULT Block A H Pylori (polyclonal) negative These tests were developed and their performance characteristics determined by [facility]. They may not have been cleared or approved by the U.S. Food and Drug Administration. The FDA has determined that such clearance or approval is not necessary. The above immunohistochemical/dualISH markers are ordered and reviewed by the Pathologist. INTERPRETATION: A. Antrum, biopsy: Negative for Helicobacter pylori organisms. MIKE/ 07/20/2024
--- NOTE | 2024-07-16 13:15 | EGD_PTH ---
PATIENT: PATRICK PHILIPPE LOC: EN U#:[id number] AGE/SX: 59/F ROOM: RE07/16/[address]: Dr. Gumaro Sandhu DO : 1965 BED: DIS: 07/16/2024 SPEC #: [id number] RECD: 07/16/24 14:17 STATUS: LAKISHA YELENA #: [id number] ALEJANDRA: 07/16/24 13:[address]: Gumaro Sandhu DEPT: SURGICAL PATHOLOGY RECD BY: Mendy Terrazas ENTERED: 07/19/24 09:08 SP TYPE: EGD BIOPSY OT DR: Dr. Bret Gomez MD Tissues: A - Gastric mucous membrane B - Esophagus, NOS Procedures: Special Stain Group I Surgery Specimen Level IV Alcian Blue/PAS (control) HEADER OPERATION: EGD with biopsies PRE-OP DIAGNOSIS: Hypergastrinemia, gastric ulcer, diverticula colon, GERD TISSUE SUBMITTED: A- Antrum biopsy, B- Distal esophagus biopsy MICROSCOPIC DIAGNOSIS A. Antrum biopsy: Mild gastritis. See microscopic description and comment. B. Distal esophagus, biopsy: Fragments of gastroesophageal mucosa with chronic inflammation. Intestinal metaplasia (goblet cell metaplasia) not identified. See comment. 07/20/2024 COMMENT A. The results of immunohistochemistry for Helicobacter pylori will be reported separately ([id number]). B. Alcian blue/PAS stain with matched control is used in the evaluation of the specimen. MICROSCOPIC DESCRIPTION Slides are reviewed. A. The specimen shows fragments of gastric mucosa with chronic inflammatory cell infiltrates in the lamina propria consisting of lymphocytes and plasma cells, consistent with mild chronic gastritis. GROSS DESCRIPTION A. Received in fixative is one container labeled with the patient's name and designated Antrum biopsy. The specimen consists of two irregular fragments of light le soft tissue that in aggregate measure 0.8 x 0.4 x 0.1 cm. The specimen is totally submitted in one cassette. B. Received in fixative is one container labeled with the patient's name and designated Distal esophagus biopsy. The specimen consists of multiple irregular fragments of light le soft tissue that in aggregate measure 0.8 x 0.5 x 0.1 cm. The specimen is totally submitted in one cassette. 07/19/2024 TC:3 CPT:32631i2,08357
--- NOTE | 2024-07-16 13:28 | OP.EGD_ITS ---
Patient Name: Qi Irwin Procedure Date: 07/16/2024 1:04 PM Date of : 1965 Age: 59 Procedure: Upper GI endoscopy Indications: Epigastric abdominal pain, Heartburn, Failure to respond to medical treatment Providers: Gumaro Sandhu DO Referring MD: Gumaro Sandhu DO Medicines: Monitored Anesthesia Care Patient Profile: This is a 59 year old female. Refer to note in patient chart for documentation of history and physical. Patient has symptoms of chronic epigastric abdominal pain, chronic dyspepsia, chronic heartburn and chronic nausea. Complications: No immediate complications. Procedure: Pre-Anesthesia Assessment: - Prior to the procedure, a History and Physical was performed, and patient medications and allergies were reviewed. The patient is competent. The risks and benefits of the procedure and the sedation options and risks were discussed with the patient. All questions were answered and informed consent was obtained. Patient identification and proposed procedure were verified by the physician in the pre-procedure area. Mental Status Examination: alert and oriented. Airway Examination: normal oropharyngeal airway and neck mobility. Respiratory Examination: clear to auscultation. CV Examination: normal. Prophylactic Antibiotics: The patient does not require prophylactic antibiotics. Prior Anticoagulants: The patient has taken no anticoagulant or antiplatelet agents. ASA Grade Assessment: II - A patient with mild systemic disease. After reviewing the risks and benefits, the patient was deemed in satisfactory condition to undergo the procedure. The anesthesia plan was to use monitored anesthesia care (MAC). Immediately prior to administration of medications, the patient was re-assessed for adequacy to receive sedatives. The heart rate, respiratory rate, oxygen saturations, blood pressure, adequacy of pulmonary ventilation, and response to care were monitored throughout the procedure. The physical status of the patient was re-assessed after the procedure. After obtaining informed consent, the endoscope was passed under direct vision. Throughout the procedure, the patient's blood pressure, pulse, and oxygen saturations were monitored continuously. The Endoscope was introduced through the mouth, and advanced to the second part of duodenum. The upper GI endoscopy was accomplished without difficulty. The patient tolerated the procedure well. Scope In: 1:17:47 PM Scope Out: 1:22:12 PM Total Procedure Duration Time 0 hours 4 minutes 25 seconds Findings: There were esophageal mucosal changes suggestive of short-segment King's esophagus present in the lower third of the esophagus. The maximum longitudinal extent of these mucosal changes was 2 cm in length. Mucosa was biopsied with a cold forceps for histology at intervals of 1 cm in the lower third of the esophagus. One specimen bottle was sent to pathology. Verification of patient identification for the specimen was done. Estimated blood loss was minimal. Diffuse prominent gastric folds were found in the cardia, in the gastric body, on the greater curvature of the stomach and in the gastric antrum. Biopsies were taken with a cold forceps for histology. Verification of patient identification for the specimen was done. Estimated blood loss was minimal. No gross lesions were noted in the second portion of the duodenum. Impression: - Esophageal mucosal changes suggestive of short-segment King's esophagus. Biopsied. - Enlarged gastric folds. Biopsied. - No gross lesions in the second portion of the duodenum. Recommendation: - Discharge patient to home. - Resume previous diet. - Continue present medications. - Await pathology results. Procedure Code(s): --- Professional --- 04101, Esophagogastroduodenoscopy, flexible, transoral; with biopsy, single or multiple CPT copyright 2021 [employer]. All rights reserved. The codes documented in this report are preliminary and upon vessel ordinary seaman review may be revised to meet current compliance requirements. Gumaro Sandhu DO 07/16/2024 1:28:24 PM This report has been signed electronically. Number of Addenda: 0 Note Initiated On: 07/16/2024 1:04 PM
--- NOTE | 2024-07-16 13:29 | OP.CCLET_ITS ---
07/16/2024 Bret Gomez [address] [place] [address] Re : Upper GI endoscopy procedure for Qi Alida Dear Dr. Gmoez This procedure was performed on Tuesday, July 16, 2024. My impressions and recommendations are as follows: Impressions : - Esophageal mucosal changes suggestive of short-segment King's esophagus. Biopsied. - Enlarged gastric folds. Biopsied. - No gross lesions in the second portion of the duodenum. Recommendations : - Discharge patient to home. - Resume previous diet. - Continue present medications. - Await pathology results. My findings are described in the full procedure note, which is enclosed. If I can be of further assistance, please feel free to contact me at . Sincerely, Gumaro Sandhu, 07/16/2024 1:28:24 PM This report has been signed electronically.
--- NOTE | 2024-07-16 13:33 | PCM.POST.ANE ---
Anesthesia: Postop Eval I Current Vital Signs Temperature: 98.5 F Pulse Rate: 62 Blood Pressure: 96/60 Respiratory Rate: 16 Pulse Ox: 98 Oxygen Delivery Method: Room Air Assessment Airway patent: Yes Spontaneous unlabored respirations: Yes Mental status: Awake and Calm nausea: No Vomiting: No Anesthesia Complication: No Fluid Hydration Crystalloid volume administer (ml): 400 Total IV fluid infused: 400 Progress Note Anesthesia document: Postop Eval 1 completed: Yes
--- NOTE | 2024-07-16 13:47 | PCM.POSTANE2 ---
Anesthesia Postop Eval I Sum Postop Eval Completion status Anesthesia document: Postop Eval 1 completed: Yes Anesthesia Postop Eval I Summary Anesthesia Postop Eval I Summary: Anesthesia Postop Eval I: Assessment Summary Airway patent Yes 07/16/24 13:35 [email or web address] Spontaneous unlabored Yes 07/16/24 13:35 [email or web address] respirations Mental status Awake,Calm 07/16/24 13:35 [email or web address] nausea No 07/16/24 13:35 [email or web address] Vomiting No 07/16/24 13:35 [email or web address] Anesthesia Postop Eval I: Fluid Summary Crystalloid volume administer 400 07/16/24 13:35 [email or web address] (ml) Colloids volume administered ( ml) Blood Product volume administered (ml) Total IV fluid infused 400 07/16/24 13:35 [email or web address] Anesthesia Postop Eval I: Summary Notes Anesthesia Complication No 07/16/24 13:35 [email or web address] Anesthesia Complication Comment: Post-operative progress note Anesthesia: Postop Eval II Evaluation Mental status: Awake Pain Level: 0 nausea: No Vomiting: No
== END 2024-07-16 14:24 | disposition home or self-care (01) ==
LOC: EN 11:55 → AC 11:57
PROVIDERS: PCP Family Medicine; Referring Provider Internal Medicine Gastroenterology; Visit Provider Internal Medicine Gastroenterology
PROC: 0DJ08ZZ Inspection of Upper Intestinal Tract, Via Natural or Artificial Opening Endoscopic (ICD-10-PCS; CPT 43235; principal; 2024-07-16 13:10)
DX: K29.70 Gastritis, unspecified, without bleeding (principal); K25.9 Gastric ulcer, unspecified as acute or chronic, without hemorrhage or perforation; Z80.0 Family history of malignant neoplasm of digestive organs; K57.90 Diverticulosis of intestine, part unspecified, without perforation or abscess without bleeding; K21.9 Gastro-esophageal reflux disease without esophagitis; Z87.891 Personal history of nicotine dependence; K31.89 Other diseases of stomach and duodenum
CPT/HCPCS: 43239; 82962; 88305; 88312; 88342; J7120; J2405

== ENCOUNTER → 2024-08-12 | Outpatient (CLI) | payer OTHER, SELFPAY ==
--- NOTE | 2024-08-12 11:31 | NM_ITS ---
CLINICAL: 59-year-old female with history of refractory gastroesophageal reflux disease and abdominal bloating. SEMI-SOLID PHASE 99m Tc SULFUR COLLOID GASTRIC EMPTYING STUDY COMPARISON: None available FINDINGS: The patient was administered 1.0 mCi of 99m Tc sulfur colloid mixed with oatmeal and consumed per os. Image acquisitions in the anterior-posterior projections were obtained for 60 minutes. There is prompt visualization of the stomach. There is no gastroesophageal reflux identified. The T ? raw data emptying was calculated to be 27.64 minutes, (Normal: 12-56 minutes). NM/Gastric Emptying Study IMPRESSION: 1. NORMAL 99m Tc sulfur colloid semi-solid phase (oatmeal) gastric emptying imaging examination. A. There is normal and preserved semi-solid phase gastric emptying compared to normal controls. (Windy et al, J Nucl Med Tech 38: 186, 2010). Electronically Signed: Jairo Busch DO at 8:40 EDT ,
== END | disposition home or self-care (01) ==
LOC: NM 11:29
PROVIDERS: PCP Family Medicine; Referring Provider Internal Medicine Gastroenterology; Visit Provider Internal Medicine Gastroenterology
DX: R10.9 Unspecified abdominal pain (principal)
CPT/HCPCS: 78264; A9541

== ENCOUNTER → 2024-09-27 | Outpatient (CLI) | payer OTHER, SELFPAY ==
[2024-09-27 13:09] LABS: Microalbumin,Random Urine < 5.0 mg/L (NO RANGE EST.)
[2024-09-27 15:20] LABS: Absolute Lymphocyte Count 1.73 X10^3/uL (0.83-4.51); Absolute Neutrophil Count 9.4 X10^3/uL (2.0-7.7); Basophil# 0.02 X10^3/uL; Basophil% 0.2 % (0-1); Eosinophil# 0.15 X10^3/uL; Eosinophils% 1.3 % (0-5); Lymphocyte # 1.73 X10^3/ul (0.83-4.51); Lymphocyte % 14.4 % (19-41); Mean Corp Hgb Conc 31.8 g/dL (32-36); Mean Corpuscular Hgb 28.9 pg (27.0-32.0); Mean Corpuscular Volume 90.7 fL (81-99); Mean Platelet Vol. 10.5 fl (6.2-12.0); Monocyte# 0.68 X10^3/uL; Monocyte% 5.7 % (0-10); NRBC Flagged by Analyzer 0 % (0-5); Neutrophil # 9.37 X10^3/uL (2.7-7.7); Neutrophil % 78.1 % (47-70); Platelet Count 333 K/mm3 (150-450); RBC Distribution Width CV 11.9 % (11.6-14.6); RBC Distribution Width SD 39.4 fl (35.1-43.9); Red Blood Count 4.85 M/mm3 (4.2-5.4)
[2024-09-27 16:10] LABS: ALB/GLOB Ratio 1.2 RATIO (0.9-2.4); AST(SGOT) 24 U/L (15-37); Alanine Aminotransfer ALT/SGPT 31 U/L (13-56); Albumin, Serum 4.3 g/dL (3.2-5.0); Alkaline Phosphatase 69 U/L (45-117); Anion Gap 7 (5-15); BUN 16 mg/dL (7-18); BUN/Creat Ratio 21.2 RATIO (10-20); Calcium,Total 9.2 mg/dL (8.5-10.1); Chloride 102 mmol/L (98-107); Cholesterol 195 mg/dL (200); Creatinine, Serum 0.75 mg/dL (0.55-1.02); EST Glomerular Filtration Rate 83 mL/min (>60); Est Glom Filt Rate - Afr Amer 100 mL/min (>60); Globulin 3.5 g/dL (2.2-4.2); Glucose 95 mg/dL (74-106); High Density Lipoprotein 65 mg/dL; Protein, Total 7.8 g/dL (6.4-8.2); Sodium Level 136 mmol/L (136-145); Triglycerides 203 mg/dL; Very Low Density Lipoprotein 41 mg/dL (5-40)
== END | disposition home or self-care (01) ==
LOC: MFPLAB 11:16
PROVIDERS: PCP Family Medicine; Visit Provider Family Medicine
DX: K76.0 Fatty (change of) liver, not elsewhere classified (principal); E88.810 Metabolic syndrome; I10 Essential (primary) hypertension
CPT/HCPCS: 36415; 80053; 80061; 82043; 82570; 83036; 84443; 85025

== ENCOUNTER → 2024-10-19 | Outpatient (CLI) | payer OTHER, SELFPAY ==
[2024-10-29 16:09] LABS: HPV APTIMA, High Risk Negative (Negative)
[2024-11-01 10:48] LABS: HPV Reflexed? YES, CHARGE PATIENT
== END | disposition home or self-care (01) ==
LOC: LABSPEC 13:54
PROVIDERS: PCP Family Medicine
DX: Z01.419 Encounter for gynecological examination (general) (routine) without abnormal findings (principal)
CPT/HCPCS: 87624; 88175; G0145

== ENCOUNTER 2025-05-16 11:38 | Observation (INO) | payer OTHER, SELFPAY ==
[2025-05-16] VITALS (10 sets, daily range): BP systolic 117–164; BP diastolic 69–88; PULSE 62–82; RESP 14–19; TEMP 36.3–36.8; O2SAT 93–100; BMI 24.9; BMI 24.4
--- NOTE | 2025-05-16 11:43 | EKG12_ITS ---
Test Reason : chest pain Blood Pressure : */* mmHG Vent. Rate : 72 BPM Atrial Rate : 72 BPM P-R Int : 144 ms QRS Dur : 72 ms QT Int : 418 ms P-R-T Axes : 54 48 18 degrees QTcB Int : 457 ms Normal sinus rhythm Nonspecific ST abnormality Abnormal ECG Confirmed by LUKE GLOVER MD ([id number]), editor sound ALETHEA MATSON ([id number]) on 05/17/2025 11:12:43 AM Referred By: Confirmed By: LUKE GLOVER MD
[2025-05-16 12:16] LABS: Absolute Lymphocyte Count 1.48 X10^3/uL (0.83-4.51); Absolute Neutrophil Count 5.2 X10^3/uL (2.0-7.7); Basophil# 0.02 X10^3/uL; Basophil% 0.3 % (0-1); Eosinophil# 0.02 X10^3/uL; Eosinophils% 0.3 % (0-5); Hematocrit 41.2 % (37-47); Hemoglobin 13.8 g/dL (12.0-15.0); Lymphocyte # 1.48 X10^3/ul (0.83-4.51); Lymphocyte % 20.8 % (19-41); Mean Corp Hgb Conc 33.5 g/dL (32-36); Mean Corpuscular Hgb 28.9 pg (27.0-32.0); Mean Corpuscular Volume 86.4 fL (81-99); Mean Platelet Vol. 9.9 fl (6.2-12.0); Monocyte# 0.38 X10^3/uL; Monocyte% 5.3 % (0-10); NRBC Flagged by Analyzer 0 % (0-5); Neutrophil # 5.19 X10^3/uL (2.7-7.7); Platelet Count 328 K/mm3 (150-450); RBC Distribution Width CV 11.9 % (11.6-14.6); RBC Distribution Width SD 37.5 fl (35.1-43.9); Red Blood Count 4.77 M/mm3 (4.2-5.4); White Blood Count 7.1 K/mm3 (4.4-11.0)
--- NOTE | 2025-05-16 12:25 | RAD_ITS ---
PROCEDURE: CHEST 1 VIEW (PORTABLE) 05/16/2025 REASON FOR EXAM: CHEST PAIN TECHNIQUE: Frontal view of the chest. COMPARISON: March 16, 2024 FINDINGS: Heart size and mediastinal configuration are within normal limits. There is no focal infiltrate or consolidation. There is no pneumothorax or effusion. There is no acute bony abnormality. Aortic calcifications are visible. RAD/Chest 1 View (Portable) IMPRESSION: No acute process is identified in the chest. Reading Location: [facility]
--- NOTE | 2025-05-16 12:25 | ED.RN ---
c/o dizziness, numbness and tingling intermittently down left shoulder and arm x a few months. increasing intensity. hx of ulcers and arthritis.
[2025-05-16 12:56] LABS: Anion Gap 13 (5-15); BUN 13 mg/dL (4-19); BUN/Creat Ratio 16.9 RATIO (10-20); Calcium,Total 9.6 mg/dL (7.6-11.0); Chloride 101 mmol/L (98-108); Creatinine, Serum 0.74 mg/dL (0.70-1.20); EST Glomerular Filtration Rate 91 (>60); Estimated Creatinine Clearance 82.38 ml/min (50-250); Glucose 125 mg/dL (70-99); Potassium 3.6 mmol/L (3.3-5.1); Sodium Level 136 mmol/L (133-145)
[2025-05-16 12:59] LABS: Troponin T High Sensitivity < 6 ng/L (<=14)
--- NOTE | 2025-05-16 13:04 | CT_ITS ---
EXAM: NONCONTRAST CT SCAN OF THE HEAD CLINICAL HISTORY: Left upper and lower extremity numbness COMPARISON: None TECHNIQUE: Serial axial series through the head were obtained without contrast. 2-D coronal and sagittal reformats were then obtained. FINDINGS: Brain: There is no acute large territorial infarct, intracranial hemorrhage, midline shift or mass effect. The sella and pineal gland regions appear unremarkable. There is no evidence of cerebellar tonsillar herniation. Ventricles: There is no acute hydrocephalus. Basilar cisterns are patent. Paranasal sinuses: Well-aerated Mastoid air cells: Well-aerated. Calvarium: The bony calvarium is intact. Orbits: The bilateral globes are symmetric, without retrobulbar compressive mass lesion or hemorrhage. CT/Brain/Head without Contrast IMPRESSION: No acute intracranial pathology. [facility]
--- NOTE | 2025-05-16 13:54 | EX.ED.DYSGE1 ---
HPI History of Present Illness Chief Complaint: Chest Pain Narrative Narrative: Patient is a 60-year-old female with past medical history of depression, anxiety, IBS, former smoker, diabetes, hypertension who presents to the emergency department chief complaint of chest pain, nausea and numbness and tingling in her left arm and lower extremity. Patient states that her numbness and tingling going on for last few days as well as her chest pain. States that her chest pain has been progressive worsening she originally had left shoulder discomfort and notes that it has been progressively worsening and is more noticeable. States that she notices this most when she gets up and walks around and states it does get better with rest. States that she had a stress test many years ago but has not had one since. She states that her family does have a history of heart disease with previous heart attacks and open heart surgeries. PFSH PFS Medical History Abdominal pain Fatty liver High cholesterol Easy bruising History of hiatal hernia History of ulceration Leg cramps Wears glasses Post-menopausal Depression Anxiety Back pain History of IBS Gastric reflux Former smoker History of stress test FH: colon cancer Hx of colonic polyp GERD (gastroesophageal reflux disease) IBS (irritable bowel syndrome) Arthritis Diabetes Chest pain Hypertension Home Medications ?Medication ?Instructions ?Recorded ?Last Taken ?Type lisinopril 20 1 tab PO DAILY 06/11/14 05/16/25 History mg-hydrochlorothiazide 25 mg tablet multivitamin 1 tab PO DAILY 02/06/21 05/16/25 History calcium 600 mg (as 1 tab PO Q12H 05/01/22 05/16/25 History carbonate)-vitamin D3 10 mcg (400 unit) tablet (Calcium 600 + D(3)) metformin 500 mg tablet 250 mg PO BID 10/28/23 05/16/25 History pravastatin 40 mg tablet 40 mg PO QHS 03/21/24 05/15/25 History omeprazole 40 mg capsule,delayed 40 mg PO QDAY #90 caps 04/15/25 05/16/25 Rx release sucralfate 1 gram tablet 1 g PO TID ulcers #90 tabs 04/15/25 05/16/25 Rx Allergy/AdvReac Type Severity Reaction Status Date / Time metronidazole Allergy Mild Rash Verified 05/16/25 11:40 Family History Mother Colon cancer CAD (coronary artery disease) Hypertension Aunt Colon cancer Father CAD (coronary artery disease) Surgical History H/O rotator cuff surgery History of esophagogastroduodenoscopy (EGD) S/P laparoscopic cholecystectomy S/P knee surgery Social History Smoking Status: Former smoker alcohol intake: current alcohol intake frequency: holidays/special occasions only ROS ROS ED ROS Narrative Constitutional: Denies headache, lightness, dizziness, fevers, chills Eyes: Denies change in vision double vision blurry vision Cardiovascular: Complains of chest discomfort denies palpitations Respiratory: Denies cough or wheezing shortness of breath Abdomen: Denies abdominal pain nausea vomiting diarrhea : Denies urinary symptoms Neurological: Complains of left upper and lower extremity numbness and tingling Musculoskeletal: Denies back pain Skin: Denies any rashes or lesions EXAM Physical Exam Narrative Exam Narrative: General: Patient lying in bed rest comfortably did not appear to be in acute distress Head: Atraumatic, normocephalic Eyes: PERRL bilaterally, EOMI bilateral, no conjunctival injection noted Neck: Soft, supple, trachea midline Cardiovascular: Regular rate and rhythm no murmurs gallops rubs noted Respiratory: Clear to auscultation bilaterally no rales rhonchi or wheezes noted Abdomen: Soft, nondistended, nontender to palpation Extremities: +5/5 strength noted in the bilateral upper and lower extremities, radial pulses +2/4 in the bilateral extremities, no pedal edema on exam Neurological: Patient following commands knew that she was at [facility] year is 2024 Skin: Warm, dry, intact no rashes or lesions noted Const Vital Signs: 05/16/25 11:39 05/16/25 12:20 05/16/25 12:38 Temperature 98.1 F Temperature Source Oral Pulse Rate 82 72 Respiratory Rate 19 H 14 Blood Pressure 164/80 H 129/75 H Blood Pressure Mean 108 93 Pulse Ox 100 99 99 Oxygen Delivery Method Room Air Room Air Room Air 05/16/25 13:00 05/16/25 14:00 05/16/25 14:55 Temperature 98.1 F Temperature Source Pulse Rate 65 62 72 Respiratory Rate 14 14 18 Blood Pressure 143/88 H 122/72 H 133/78 H Blood Pressure Mean 106 88 96 Pulse Ox 99 100 99 Oxygen Delivery Method Room Air Room Air MDM MDM MDM Narrative Medical decision making narrative: Patient is a 60-year-old female who presented to the emergency department chief complaint of worsening chest pain as well as numbness and tingling in her left arm and lower extremity as noted above. On the differential diagnose includes but not limited to ACS, stable angina, pneumothorax, pneumonia, intracranial mass, stroke. Once workup is obtained reviewed she will be reevaluated. Patient will not be a stroke alert as she is not a candidate for tenecteplase nor LVO as her symptoms have been going on for days when it comes to the left upper and lower extremity numbness and tingling HEART Score for Major Cardiac Events from [employer] on 05/16/2025 All calculations should be rechecked by clinician prior to use RESULT SUMMARY: 5 points Moderate Score (4-6 points) Risk of MACE of 12-16.6%. INPUTS: History ?> 1 = Moderately suspicious EKG ?> 1 = Non-specific repolarization disturbance Age ?> 1 = 45-64 Risk factors ?> 2 = >= risk factors or history of atherosclerotic disease Initial troponin ?> 0 = <=ormal limit Patient CBC reviewed showed no evidence leukocytosis white blood count normal at 7.1, he was 13.8, platelet count 328. Patient's sodium was 136, potassium normal 3.6, creatinine normal at 0.74. Patient's troponin was less than 6 with a delta troponin of less than 6 as well. Patient's EKG reviewed and showed sinus rhythm with a rate of 72 bpm with OR interval 144. Patient's chest x-ray reviewed by myself and by radiology showed no acute cardiopulmonary processes. Patient CT head brain without contrast showed no acute intracranial pathology. At this point time do believe the patient will warrant admission for stress testing given her chest discomfort radiating to her left shoulder that has been progressively worsening especially with exertion getting better with rest as well as this numbness and tingling in the left upper and lower extremity. Will discuss case with hospitalist for admission. Patient given 325 mg aspirin. Discussed case with hospitalist Dr. Yuen who accept patient for admission. Discussed this plan with the patient she is agreeable to plan all questions were answered. Lab Data Labs: Laboratory Results - last 24 hr 05/16/25 05/16/25 12:05 13:25 WBC 7.1 RBC 4.77 Hgb 13.8 Hct 41.2 MCV 86.4 MCH 28.9 MCHC 33.5 RDW Std Deviation 37.5 RDW Coeff of Ollie 11.9 Plt Count 328 MPV 9.9 Immature Gran % (Auto) 0.300 Neut % (Auto) 73.0 H Lymph % (Auto) 20.8 [place] % (Auto) 5.3 Eos % (Auto) 0.3 Baso % (Auto) 0.3 Absolute Neuts (auto) 5.2 Absolute Lymphs (auto) 1.48 Nucleated RBC % 0 Sodium 136 Potassium 3.6 Chloride 101 Carbon Dioxide 22.0 Anion Gap 13 BUN 13 Creatinine 0.74 Estim Creat Clear Calc 82.38 Est GFR (MDRD) Non-Af 91 BUN/Creatinine Ratio 16.9 Glucose 125 H Calcium 9.6 Troponin T High Sens < 6 Troponin T Hi Sens 2 Hr < 6 Radiography Diagnostic Testing: Clinical Impression(s) from Imaging Studies Chest X-Ray 05/16/25 12:25 IMPRESSION: No acute process is identified in the chest. [facility] 05/16/25 13:04 IMPRESSION: No acute intracranial pathology. [facility] Triage Chief Complaint: Chest Pain ED Provider: Aleks Scruggs Dx/Rx/DC Orders Clinical Impression: Chest pain, Hypertension, IBS (irritable bowel syndrome), Diabetes Prescriptions: No Action multivitamin Tablet 1 tab PO DAILY lisinopril-hydrochlorothiazide 1 TABLET tablet 1 tab PO DAILY Patient Comments: heart/ blood pressure calcium carbonate-vitamin D3 [Calcium 600 + D(3)] 600 mg-10 mcg (400 unit) Tablet 1 tab PO Q12H metformin 500 mg tablet 250 mg PO BID pravastatin 40 mg tablet 40 mg PO QHS omeprazole 40 mg capsule,delayed release(DR/EC) 40 mg PO QDAY Qty: 90 0RF sucralfate 1 gram tablet 1 g PO TID Qty: 90 3RF Primary Care Provider: Bret Gomez Referrals: Bret Gomez MD [Primary Care Provider] - Print Language: Lithuanian Disposition Disposition: Acute Care Hospital [facility]
[2025-05-16 14:19] LABS: Troponin T High Sens 2 HR < 6 ng/L (<=14)
--- NOTE | 2025-05-16 16:00 | PCM.HP.STD ---
[facility] - General General Date of Admission: 05/16/25 Date of Service: 05/16/25 Chief Complaint: Chest pain and left sided numbness and tingling HPI Narrative PATRICK PHILIPPE, is a 60-year-old female history of depression, anxiety, GERD, hypertension, diabetes who presented [facility] ED 05/16/2025 for chest pain, nausea, numbness and tingling in the left arm and lower extremity. Reportedly her chest pain and numbness and tingling have been going on for several days, the chest pain has been on the left side of her chest towards her left shoulder that is progressively worsened, worse when she gets up and moves around and does get better with rest. No recent stress test. Does have family history of heart disease. CT head negative, troponins negative and workup otherwise unremarkable. Hospitalist contacted for admission for chest pain rule out. Patient evaluated at bedside and reports she is coming in for 2 reasons, the intermittent left arm and leg numbness and tingling and some left shoulder pain with some possible reflux-like symptoms. Patient reports that for several days she will get some numb and tingling feeling in her hand and below the knee on the left side that comes and goes does not seem to have any other associations, denies any recent falls or neck pain, did have a flareup of pain in her left knee for which she got a cortisone injection a week ago and that has improved. In regards to the concern for chest pain she reports she had some possible pressure-like sensation versus heartburn that has happened intermittently as well as some left shoulder pain however even when she does not have the heartburn the shoulder pain persists. Occasionally will feel lightheaded and dizzy with some nausea. Does report she has a history of ulcers and has been on sucralfate for the past 1 year, denies any abdominal pain, not taking any ibuprofen. Does have a slight headache but reports she gets them when she has allergies and sinus problems which she reports has been present over the past week [facility] Medical History Abdominal pain Fatty liver High cholesterol Easy bruising History of hiatal hernia History of ulceration Leg cramps Wears glasses Post-menopausal Depression Anxiety Back pain History of IBS Gastric reflux Former smoker History of stress test FH: colon cancer Hx of colonic polyp GERD (gastroesophageal reflux disease) IBS (irritable bowel syndrome) Arthritis Diabetes Chest pain Hypertension Home Medications ?Medication ?Instructions ?Recorded ?Last Taken ?Type lisinopril 20 1 tab PO DAILY 06/11/14 05/16/25 History mg-hydrochlorothiazide 25 mg tablet multivitamin 1 tab PO DAILY 02/06/21 05/16/25 History calcium 600 mg (as 1 tab PO Q12H 05/01/22 05/16/25 History carbonate)-vitamin D3 10 mcg (400 unit) tablet (Calcium 600 + D(3)) metformin 500 mg tablet 250 mg PO BID 10/28/23 05/16/25 History pravastatin 40 mg tablet 40 mg PO QHS 03/21/24 05/15/25 History omeprazole 40 mg capsule,delayed 40 mg PO QDAY #90 caps 04/15/25 05/16/25 Rx release sucralfate 1 gram tablet 1 g PO TID ulcers #90 tabs 04/15/25 05/16/25 Rx Allergy/AdvReac Type Severity Reaction Status Date / Time metronidazole Allergy Mild Rash Verified 05/16/25 11:40 Family History Mother Colon cancer CAD (coronary artery disease) Hypertension Aunt Colon cancer Father CAD (coronary artery disease) Surgical History H/O rotator cuff surgery History of esophagogastroduodenoscopy (EGD) S/P laparoscopic cholecystectomy S/P knee surgery Social History Smoking Status: Former smoker alcohol intake: current alcohol intake frequency: holidays/special occasions only ROS ROS Narrative General: Denies fever/chills HENT: Little bit of a headache and allergy symptoms, denies anything unusual for her EYES: Denies changes in vision Resp: Denies cough, denies shortness of breath Cardiac: Pleth some epigastric burning or pressure intermittently GI: Denies abdominal pain, denies changes in bowel, occasionally will get some nausea : Denies changes in urination Extremity: Denies swelling MSK: Denies weakness Neuro: Intermittent numbness and tingling in left hand and left leg below the knee Heme: Denies any bleeding or bruising Skin: Denies rashes Psychiatric: No complaints voiced Vital Signs Vital Signs Vital Signs: 05/16/25 11:39 05/16/25 12:20 05/16/25 12:38 Temperature 98.1 F Temperature Source Oral Pulse Rate 82 72 Respiratory Rate 19 H 14 Blood Pressure 164/80 H 129/75 H Blood Pressure Mean 108 93 Pulse Ox 100 99 99 Oxygen Delivery Method Room Air Room Air Room Air 05/16/25 13:00 05/16/25 14:00 05/16/25 14:55 Temperature 98.1 F Temperature Source Pulse Rate 65 62 72 Respiratory Rate 14 14 18 Blood Pressure 143/88 H 122/72 H 133/78 H Blood Pressure Mean 106 88 96 Pulse Ox 99 100 99 Oxygen Delivery Method Room Air Room Air Weight Weight: 76.476 kg Body Mass Index (BMI) 24.9 Physical Exam Narrative General: Alert, oriented, no apparent distress HEENT: Atraumatic, normocephalic Eyes: Anicteric, normal conjunctiva, extraocular movements intact, pupils equal Neck: Supple Respiratory: Clear to auscultation bilaterally, normal respiratory effort Cardiovascular: Regular rate and rhythm GI: Soft, nontender, nondistended Extremities: No edema Musculoskeletal: Strength 5 out of 5 in right upper extremity, 5 out of 5 left upper extremity, 5 out of 5 right lower extremity, 5 out of 5 left lower extremity Neuro: No overt focal neurological deficits, cranial nerves II through XII intact, [id number] without significant difficulty bilaterally Skin: No rashes appreciated Psych: Cooperative Results Lab / Micro Data 05/16/25 12:05 05/16/25 12:05 Labs: Laboratory Results - last 24 hr 05/16/25 12:05: WBC 7.1, RBC 4.77, Hgb 13.8, Hct 41.2, MCV 86.4, MCH 28.9, MCHC 33.5, RDW Std Deviation 37.5, RDW Coeff of Ollie 11.9, Plt Count 328, MPV 9.9, Immature Gran % (Auto) 0.300, Neut % (Auto) 73.0 H, Lymph % (Auto) 20.8, [place] % (Auto) 5.3, Eos % (Auto) 0.3, Baso % (Auto) 0.3, Absolute Neuts (auto) 5.2, Absolute Lymphs (auto) 1.48, Nucleated RBC % 0, Sodium 136, Potassium 3.6, Chloride 101, Carbon Dioxide 22.0, Anion Gap 13, BUN 13, Creatinine 0.74, Estim Creat Clear Calc 82.38, Est GFR (MDRD) Non-Af 91, BUN/Creatinine Ratio 16.9, Glucose 125 H, Calcium 9.6, Troponin T High Sens < 6 05/16/25 13:25: Troponin T Hi Sens 2 Hr < 6 Imaging Radiology Impression Chest X-Ray 05/16/25 12:25 IMPRESSION: No acute process is identified in the chest. Reading Location: [facility] Brain CT 05/16/25 13:04 IMPRESSION: No acute intracranial pathology. Reading Location: [facility] Assessment & Plan Assessment/Plan (1) Chest pain: PLAN: Plan #Chest pain -EKG with a rate of 72 and nonspecific changes but without any depressions or elevations in ST segment -Trop negative x 2 -Admit to telemetry -Echo ordered -Aspirin -Statin -Lipid panel in AM -Stress test ordered for AM #Left sided numbness and tingling -Admit to tele - Patient reports intermittent left arm and leg numbness and tingling but it seems to be at random and is usually just below the knee on the left side and not her whole leg or necessarily her whole arm, CT head unremarkable, discussed doing MRI of brain and C-spine for further evaluation given the unusual symptoms however patient reports she does very very poorly with MRIs, offered medicine to help with anxiety and patient declined - Will obtain CTA head and neck to see if there is anything hemodynamically significant that could be contributing - If symptoms persist could consider MRI in the a.m. if patient does become agreeable - Symptoms are waxing and waning at random with varying amount of each limb affected each time, neuroexam completely normal and thus far imaging within normal limits however given these complaints will concomitantly undergo TIA workup -NIH q4hr -asa, statin as above -Echo as above -PT/OT/Speech eval -Teleneuro consult ordered #Hypertension - Continue medications #GERD -Continue PPI #Type 2 diabetes mellitus -Glucose checks and sliding scale insulin #Hx gastric ulcers -Cont home sucralfate #DVT ppx: Lovenox subcu Marilin Yuen MD Charges/Coding Visit Charges Inpatient E&M: 59110 Init Hosp L2
--- NOTE | 2025-05-16 16:41 | CT_ITS ---
PROCEDURE: CTA HEAD AND NECK W/ CONTRAST 05/16/2025 REASON FOR EXAM: INTERMITTENT NUMBNESS AND TINGLING IN LEFT SIDE TECHNIQUE: CTA HEAD AND NECK W/ CONTRAST Multiplanar Sagittal and Coronal images were obtained. 3D post processing was performed CONTRAST: 100 mL Isovue 370 One or more dose reduction techniques were used (e.g., Automated exposure control, adjustment of the mA and/or kV according to patient size, use of iterative reconstruction technique). RADIATION DOSE SUMMARY: CTDlvol: 17.6 mGy DLP: 709 mGycm COMPARISON: Same date CT head FINDINGS: Aortic Arch: Incidental note of a right aortic arch, with minimal atherosclerosis. Brachiocephalic and Subclavians: Unremarkable RIGHT Carotid: Right CCA: Unremarkable. Right ICA: Unremarkable. Maximum stenosis (NASCET): <50 % Right ECA: Unremarkable. LEFT Carotid: Left CCA: Trace calcified atherosclerosis at the carotid bulb. Left ICA: Unremarkable. Maximum stenosis (NASCET): <50 % Left ECA: Unremarkable. Vertebrals: Codominant. Arise from the subclavians. Both vertebrals form the basilar. RIGHT Vertebral: Unremarkable. LEFT Vertebral: Unremarkable. Anatomy: [place] anatomy is normal. Aneurysm or AVM: No intracranial aneurysms or large vascular malformations are identified. Anterior cerebral arteries: Unremarkable: Middle cerebral arteries: Unremarkable. Basilar artery: Unremarkable. Posterior cerebral arteries: Unremarkable. Other major branches of the posterior circulation: Unremarkable. Major venous structures: Unremarkable. Other findings: Neck: There are thyroid nodules measuring up to 1.6 cm in the left lobe (series 2, image 111). No lymphadenopathy. Lungs: Solid nodule in the left upper lobe measuring 8 mm (series 2, image 47). Bones: Degenerative changes. CT/CTA Head AND Neck W/ Contrast IMPRESSION: 1. No hemodynamically significant narrowing or large vessel occlusion of the he ad or neck vasculature. 2. Solid pulmonary nodule in the left upper lobe measuring 8 mm. Recommend de dicated chest CT. 3. Thyroid nodules measuring up to 1.6 cm. Recommend thyroid ultrasound. 4. Right-sided aortic arch. Reading Location: [id number]
[2025-05-16 17:06] LABS: Troponin T High Sens 4 HR < 6 ng/L (<=14)
--- NOTE | 2025-05-16 19:37 | EKG12_ITS ---
Test Reason : admit Blood Pressure : */* mmHG Vent. Rate : 61 BPM Atrial Rate : 61 BPM P-R Int : 164 ms QRS Dur : 72 ms QT Int : 440 ms P-R-T Axes : 49 28 23 degrees QTcB Int : 442 ms Normal sinus rhythm Normal ECG When compared with ECG of 16-May-2025 11:54, MANUAL COMPARISON REQUIRED DATA IS UNCONFIRMED Confirmed by ADALBERTO WILL, LUKE ([id number]), multimedia editor ALETHEA MATSON ([id number]) on 05/17/2025 11:00:52 AM Referred By: Wilfrid Confirmed By: LUKE GLOVER MD
[2025-05-16] MEDS: Atorvastatin Calcium 80 MG Tablet PO (19:47)
[2025-05-16] MEDS: Acetaminophen 325 MG Tablet 650 MG PO (19:47)
[2025-05-16] MEDS: 0.9% Normal Saline (1000mL) 1,000 ML 50 ML IV (19:48)
[2025-05-16] MEDS: 0.9% Saline Lock 10 ML Syringe IV (19:49)
[2025-05-16 22:10] LABS: Bedside Glucose 135 mg/dL (74-106)
--- OUTSIDE RECORDS SUMMARY | 2025-05-16 23:04 | XMS RPT_ITS | CCD ---
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 Bret Gomez Primary Care Provider Dr. Bret Gomez Referring Provider [phone] Stephanie PRODUCT DEVELOPMENT WORKER, PRODUCT DEVELOPMENT WORKER-C Alessandra Boothe Attending Provider [phone] Dr. Gumaro Sandhu Attending Provider [phone] Dr. Gumaro Sandhu Other Provider [phone] Bret Gomez Primary Care Provider Dr. Bret Gomez Referring Provider [phone] Stephanie PRODUCT DEVELOPMENT WORKER, PRODUCT DEVELOPMENT WORKER-C Alessandra Boothe Attending Provider [phone] Dr. Bret Gomez Primary Care Provider Dr. Bret Gomez Referring Provider Stephanie PRODUCT DEVELOPMENT WORKER, PRODUCT DEVELOPMENT WORKER-C Alessandra Boothe Attending Provider [phone] Dr. Gumaro Sandhu Attending Provider Dr. Gumaro Sandhu Other Provider [phone] Bret Gomez Primary Care Provider Dr. Bret Gomez Referring Provider [phone] Dr. Gumaro Sandhu Attending Provider [phone] Dr. Gumaro Sandhu Other Provider [phone] Bret Gomez Primary Care Provider Dr. Bret Gomez Referring Provider [phone] Dr. Gumaro Sandhu Attending Provider Dr. Gumaro Sandhu Other Provider [phone] Bret Gomez Primary Care Provider Dr. Bret Gomez Referring Provider Friend, Dr. Naik Attending Provider Dr. Marie Aiken Attending Provider [phone] Dr. Too Bingham Referring Provider Jason WILL, Dr. Queen Primary Care Provider Dr. Bret Gomez MD Referring Provider Sharad PRODUCT DEVELOPMENT WORKER-C, Coty Attending Provider Coleman WILL, Dr. Saab Attending Provider Gomez, Bret Attending Unavailable Gomez, Bret Referring Unavailable Gomez, Bret Primary Care Unavailable Gomez, Bret Primary Care Unavailable Friend, Gumaro Attending Unavailable Friend, Gumaro Referring Unavailable Gomez, Bret Primary Care Unavailable Friend, Gumaro Attending Unavailable Friend, Gumaro Referring Unavailable Friend, Gumaro Attending Unavailable Gomez, Bret Primary Care Unavailable Friend, Gumaro Referring Unavailable Gomez, Bret Attending Unavailable Gomez, Bret Primary Care Unavailable Gomez, Bret Primary Care Unavailable Friend, Gumaro Attending Unavailable Friend, Gumaro Referring Unavailable McMorrow PRODUCT DEVELOPMENT WORKER, Ras Attending Unavailable Gomez, Bret Primary Care Unavailable Gomez, Bret Referring Unavailable Gomez, Bret Primary Care Unavailable Coty Orourke Attending Unavailable Kaiser Cee Attending Unavailable Gomez, Bret Primary Care Unavailable Friend, Gumaro Attending Unavailable Gomez, Bret Referring Unavailable Gomez, Bret Primary Care Unavailable Friend, Gumaro Consulting Unavailable Gomez, Bret Primary Care Unavailable Friend, Gumaro Attending Unavailable Friend, Gumaro Referring Unavailable Dr. Aleks Scruggs DO Emergency Provider [phone] Wilfrid WILL, Dr. Gaston Admit Provider [phone] Wilfrid WILL, Dr. Gaston Attending Provider [phone] Allergies Allergy Classification Reported Allergen(s) Allergy Type Date of Onset Reaction(s) Facility (15 sources) metroNIDAZOLE Drug Allergy 05-15-2022 Rash [facility] (1 source) metroNIDAZOLE Drug Allergy 05-04-2025 [facility] Repository Medications Current Medications Medication Drug Class(es) Dates Sig (Normalized) Sig (Original) amoxicillin 875 mg / clavulanate 125 mg oral tablet (2 sources) Penicillin-class Antibacterial Start: 04-09-2023 take 1 tablet by mouth twice daily Amoxicillin-Pot Clavulanate Active 1 TABLET PO TWICE A DAY April 08, 2023 11:00pm calcium carbonate 1500 mg / cholecalciferol 0.01 mg oral tablet (15 sources) Vitamin D Start: 05-01-2022 Calcium Carbonate-Vitami n D3 (Calcium 600 + D(3)) 600 mg-10 mcg (400 unit) Tablet Active 1 {tbl} PO Q12H May 01, 2022 12:00am Start: 05-01-2022 Calcium Carbon ate-Vitamin D3 (Calcium 600 + D(3)) 600 mg-10 mcg (400 unit) Tablet Active 1 {tbl} PO DAILY May 01, 2022 12:00am hydroCHLOROthiazide 25 mg / lisinopril 20 mg oral tablet (15 sources) Thiazide Diuretic, Angiotensin Converting Enzyme Inhibitor Start: 06-11-2014 Lisinopril-Hydrochlorothiazi de 1 TABLET tablet Active 1 {tbl} PO DAILY June 11, 2014 12:00am Start: 06-11-2014 take 1 tablet by robyn once daily Lisinopril-Hydrochlorothiazide Active 1 TABLET PO DAILY June 11, 2014 12:00am metFORMIN hydrochloride 500 mg oral tablet (20 sources) Biguanide Start: 10-28-2023 Metformin 500 mg tablet Active 250 mg PO TWICE A DAY October 28, 2023 1:00am Start: 10-28-2023 take 250 mg by mouth twice daily Metformin Active 250 MG PO TWICE A DAY October 28, 2023 1:00am Start: 12-29-2018 End: 02-06-2021 take 1 tablet by mouth twice daily Metformin 500 mg tablet Discontinued 500 mg PO TWICE A DAY December 29, 2018 1:00am February 06, 2021 12:41pm mirtazapine 15 mg oral tablet (7 sources) Start: 01-25-2022 take 15 mg by mouth at bedtime Mirtazapine Active 15 MG PO AT BEDTIME January 25, 2022 12:00am Multivitamin preparation (12 sources) Start: 02-06-2021 take 1 tablet by mouth once daily Multivitamin Active 1 TABLET PO DAILY February 05, 2021 11:00pm Start: 02-06-2021 take 1 tablet by robyn th once daily Multivitamin Active 1 TABLET PO DAILY February 06, 2021 12:00am Multivitamin tablet (3 sources) Start: 02-06-2021 Multivitamin t ablet Active 1 {tbl} PO DAILY February 06, 2021 12:00am omeprazole 40 mg delayed release oral capsule (20 sources) Proton Pump Inhibitor Start: 04-13-2025 End: 04-15-2025 take 1 capsule by mouth once daily Omeprazole 40 mg capsule,delayed release(DR/EC) Active 40 mg PO daily April 15, 2025 1:22pm Start: 06-04-2024 End: 04-13-2025 take 1 capsule by mouth twice daily, then take 1 capsule by mouth once daily Omeprazole 40 mg capsule,delayed release(DR/EC) Discontinued 40 mg PO TWICE A DAY 60 December 13, 2024 12:15pm April 13, 2025 10:38am take one capsule by mouth twice a day for two months and then take one capsule once a day Start: 03-25-2024 End: 05-24-2024 take 1 capsule by mouth twice daily Omeprazole 40 mg capsule,delayed release(DR/EC) Discontinued 40 mg PO TWICE A DAY 120 March 25, 2024 8:47am May 23, 2024 12:00am May 24, 2024 12:04am Start: 08-27-2023 End: 03-25-2024 take 1 capsule by mouth once daily Omeprazole 40 mg capsule,delayed release(DR/EC) Discontinued 40 mg PO DAILY August 27, 2023 3:39pm March 25, 2024 8:52am Start: 05-15-2022 End: 08-27-2023 Omeprazole 40 mg capsule,del ayed release(DR/EC) Discontinued 40 mg PO NEEDED as needed for Heartburn October 18, 2022 12:20pm August 27, 2023 3:40pm take twice a day for 2 months, then decrease back to once a day Start: 02-06-2021 End: 05-15-2022 take 1 capsule by mouth once daily as needed for gastroesophageal reflux disease Omeprazole 40 mg capsule,delayed release(DR/EC) Discontinued 40 mg PO DAILY NEEDED as needed for GERD January 25, 2022 10:50am February 12, 2022 3:03pm swallow whole; do not crush, chew, dissolve, cut, break pravastatin sodium 40 mg oral tablet (4 sources) HMG-CoA Reductase Inhibitor Start: 03-21-2024 take 1 tablet by mouth at bedtime Pravastatin 40 mg tablet Active 40 mg PO AT BEDTIME March 21, 2024 12:00am Completed/Discontinued Medications Medication Drug Class(es) Dates Sig (Normalized) Sig (Original) acetaminophen 325 mg / HYDROcodone bitartrate 5 mg oral tablet (15 sources) Opioid Agonist Start: 02-08-2021 End: 02-13-2021 Hydrocodone-Acetami nophen 1 TABLET tablet Discontinued 1 - 2 NMA PO EVERY 6 HOURS NEEDED as needed for Pain 17 04February 08, 2021 February 12, 2021 12:00am February 13, 2021 12:03am Start: 02-08-2021 End: 02-13-2021 take 1 tablet by mouth every six hours as needed Hydrocodone-Acetaminophen Discontinued 1 - 2 TAB PO EVERY 6 HOURS NEEDED 17 04February 08, 2021 February 13, 2021 12:03am atropine sulfate 0.025 mg / diphenoxylate hydrochloride 2.5 mg oral tablet (20 sources) Anticholinergic, Cholinergic Muscarinic Antagonist, Antidiarrheal Start: 01-25-2022 End: 04-05-2022 Diphenoxylate-Atropine (Lomotil) 2.5-0.025 mg tablet Discontinued 1 {tbl} PO TWICE A DAY as needed for diarrhea April 04, 2022 3:24pm April 05, 2022 4:18pm cholestyramine resin 4000 mg powder for oral suspension (16 sources) Bile Acid Sequestrant Start: 10-29-2023 End: 02-13-2024 take 1 g by mouth once daily Cholestyramine (With Sugar) 4 gram powder Discontinued 1 g PO .daily 348.6 October 29, 2023 11:04am February 13, 2024 10:52am Confirm: 1 gram (0.75 teaspoon) taken once daily Start: 10-29-2023 End: 02-13-2024 take 1 g by mouth once daily Cholestyramine (With Suga r) Discontinued 1 GM PO .daily 348.6 October 29, 2023 11:04am February 13, 2024 10:52am Confirm: 1 gram (0.75 teaspoon) taken once daily Start: 10-29-2023 End: 10-29-2023 Cholestyramine (With Sugar) 4 gram powder Discontinued 1 g PO .daily 348.6 October 29, 2023 1:00am October 29, 2023 11:07am Start: 10-29-2023 End: 10-29-2023 take 1 g by mouth once daily Cholestyramine (With Suga r) Discontinued 1 GM PO .daily 348.6 October 29, 2023 1:00am October 29, 2023 11:07am Start: 10-29-2023 End: 10-29-2023 take 1 g by mouth once daily Cholestyramine (With Suga r) Discontinued 1 GM PO .daily 348.6 October 29, 2023 12:00am October 29, 2023 10:07am dicyclomine hydrochloride 10 mg oral capsule (15 sources) Anticholinergic Start: 12-16-2019 End: 02-06-2021 take 1 capsule by mouth every eight hours as needed for pain Dicyclomine 10 MG capsule Discontinued 10 mg PO EVERY 8 HOURS NEEDED as needed for ABD PAIN December 16, 2019 1:00am February 06, 2021 12:42pm gabapentin 300 mg oral capsule (4 sources) Anti-epileptic Agent Start: 03-21-2024 End: 07-13-2024 take 1 capsule by mouth three times daily Gabapentin 300 mg capsule Discontinued 300 mg PO THREE TIMES A DAY 42 14 March 21, 2024 12:00am July 13, 2024 8:35am 3 ml liraglutide 6 mg/ml pen injector (15 sources) GLP-1 Receptor Agonist Start: 12-16-2019 End: 02-06-2021 inject 1.2 mg by subcutaneous injection once daily Liraglutide 0.6 MG/0.1 ML pen injector Discontinued 1.2 mg SQ DAILY December 16, 2019 1:00am February 06, 2021 12:42pm LORazepam 1 mg oral tablet (4 sources) Benzodiazepine Start: 03-21-2024 End: 07-13-2024 take 1 tablet by mouth three times daily as needed for pain Lorazepam (Ativan) 1 mg tablet Discontinued 1 mg PO THREE TIMES A DAY as needed for Muscle pain/spasm 15 5 March 21, 2024 12:00am July 13, 2024 8:36am metoclopramide 5 mg oral tablet (8 sources) Dopamine-2 Receptor Antagonist Start: 10-29-2023 End: 02-13-2024 take 8 tablets by mouth once Metoclopramide Hcl 5 mg tablet Discontinued 10 mg PO .q8 21 October 29, 2023 1:00am February 13, 2024 10:53am Start: 10-29-2023 End: 02-13-2024 Metoclopramide Hcl Discontin ued 10 MG PO .q8 21 October 29, 2023 1:00am February 13, 2024 10:53am oxyCODONE hydrochloride 5 mg oral tablet (4 sources) Opioid Agonist Start: 03-21-2024 End: 07-13-2024 take 5-10 mg by mouth every four hours as needed for pain Oxycodone 5 mg tablet Discontinued 5 - 10 mg PO EVERY 4 HOURS NEEDED as needed for pain March 21, 2024 12:00am July 13, 2024 8:36am raNITIdine 150 mg oral tablet (15 sources) Histamine-2 Receptor Antagonist Start: 06-11-2014 End: 12-29-2018 take 1 tablet by mouth once daily Ranitidine Hcl 150 MG tablet Discontinued 150 mg PO DAILY June 11, 2014 12:00am December 29, 2018 11:38am sucralfate 1000 mg oral tablet (20 sources) Aluminum Complex Start: 02-13-2024 End: 04-15-2025 take 1 tablet by mouth three times daily Sucralfate 1 gram tablet Discontinued 1 g PO THREE TIMES A DAY April 04, 2025 7:48am April 15, 2025 1:22pm Start: 10-28-2023 End: 02-13-2024 take 1 tablet by mouth once daily Sucralfate 1 gram tablet Discontinued 1 g PO DAILY October 28, 2023 1:00am February 13, 2024 10:54am Start: 02-06-2023 End: 08-27-2023 take 1 tablet by mouth at bedtime Sucralfate 1 gram tablet Discontinued 1 g PO before meals and at bedtime 120 February 06, 2023 12:00am August 27, 2023 3:40pm Start: 02-06-2023 End: 09-26-2023 take 1 tablet by mouth once Sucralfate 1 gram tablet Discontinued 1 g PO ONCE 30 August 27, 2023 3:38pm September 25, 2023 12:00am September 26, 2023 12:05am Start: 05-15-2022 End: 08-28-2022 take 1 tablet by mouth at bedtime Sucralfate 1 gram tablet Discontinued 1 g PO before meals and at bedtime 120 July 08, 2022 4:16pm August 28, 2022 11:53am traMADol hydrochloride 50 mg oral tablet (15 sources) Opioid Agonist Start: 12-16-2019 End: 12-19-2019 take 1 tablet by mouth every four hours as needed for pain Tramadol 50 MG tablet Discontinued 50 mg PO EVERY 4 HOURS NEEDED as needed for Pain 12 December 16, 2019 1:00am December 18, 2019 1:00am December 19, 2019 1:08am Problems Active Problems Problem Classification Problem Date Documented Da te Episodic/Chronic Abdominal pain (20 sources) Right upper quadrant pain; Translations: [Right upper quadrant pain] Onset: Episodic Diabetes mellitus without complication (19 sources) Diabetes mellitus; Translations: [Type 2 diabetes mellitus without complications] 05-01-2022 Chronic Comment on above: ON MED Diverticulosis and diverticulitis (20 sources) Diverticulosis of colon; Translations: [Diverticulosis of large intestine without perforation or abscess without bleeding] Chronic Esophageal disorders (20 sources) Gastroesophageal reflux disease; Translations: [Gastro-esophageal reflux disease without esophagitis] Chronic Essential hypertension (16 sources) Hypertensive disorder; Translations: [Essential (primary) hypertension] 05-01-2022 Chronic Comment on above: CONTROLLED ON MED Gastroduodenal ulcer (except hemorrhage) (20 sources) Gastric ulcer; Translations: [Gastric ulcer, unspecified as acute or chronic, without hemorrhage or perforation] Chronic Noninfectious gastroenteritis (15 sources) Chronic diarrhea; Translations: [Noninfective gastroenteritis and colitis, unspecified] 12-17-2019 Episodic Nonspecific chest pain (20 sources) Chest wall pain; Translations: [Other chest pain] 09-20-2019 Episodic Comment on above: NONE RECENTLY Osteoarthritis (15 sources) Arthritis; Translations: [Unspecified osteoarthritis, unspecified site] 02-12-2022 Chronic Other and unspecified benign neoplasm (15 sources) History of polyp of colon; Translations: [Personal history of colonic polyps] 02-12-2022 Episodic Other and unspecified benign neoplasm (2 sources) Personal history of colonic polyps; Translations: [Personal history of colonic polyps] Episodic Other connective tissue disease (2 sources) Iliotibial band friction syndrome of left knee; Translations: [Iliotibial band syndrome, left leg] 05-04-2025 Episodic Other endocrine disorders (14 sources) Increased gastrin secretion; Translations: [Increased secretion of gastrin] 05-21-2022 Chronic Other endocrine disorders (4 sources) Increased secretion of gastrin; Translations: [Abnormality of secretion of gastrin] Chronic Other gastrointestinal disorders (15 sources) Irritable bowel syndrome; Translations: [Irritable bowel syndrome without diarrhea] 02-12-2022 Chronic Other gastrointestinal disorders (1 source) Irritable bowel syndrome without diarrhea; Translations: [Irritable bowel syndrome without diarrhea] Onset: 4 Chronic Other gastrointestinal disorders (20 sources) Diarrhea; Translations: [Diarrhea, unspecified] 02-12-2022 Episodic Other gastrointestinal disorders (2 sources) Diarrhea, unspecified; Translations: [Diarrhea] Episodic Other liver diseases (1 source) Fatty (change of) liver, not elsewhere classified; Translations: [Fatty (change of) liver, not elsewhere classified] Onset: 4 Chronic Other nervous system disorders (4 sources) Postoperative pain ; Translations: [Other acute postprocedural pain] 03-21-2024 Episodic Other non-traumatic joint disorders (4 sources) Pain in left knee; Translations: [Left knee pain] Onset: 5 05-04-2025 Episodic Residual codes; unclassified (15 sources) Family history of cancer of colon; Translations: [Family history of malignant neoplasm of digestive organs] 02-12-2022 Episodic Residual codes; unclassified (2 sources) Family history of malignant neoplasm of digestive organs; Translations: [Family history of malignant neoplasm of gastrointestinal tract] Episodic Sprains and strains (2 sources) Sprain of left knee; Translations: [Sprain of unspecified site of left knee, initial encounter] 05-04-2025 Episodic Past or Other Problems Problem Classification Problem Date Documented Da te Episodic/Chronic Gastritis and duodenitis (1 source) Gastritis, unspecified, without bleeding; Translations: [Gastritis, unspecified, without bleeding] Onset: 08-11-2024 Episodic Other screening for suspected conditions (not mental disorders or infectious disease) (1 source) Encounter for screening mammogram for malignant neoplasm of breast; Translations: [Encounter for screening mammogram for malignant neoplasm of breast] Onset: 11-18-2024 Episodic Results Test Name Value Interpretation Reference Range Facility Absolute lymphocyte countOrd ered By: ED PROVIDER on 05-16-2025 Lymphocytes Auto (Unsp spec) [#/Vol] 1.48 10*3/uL 0.83-4.51 [facility] Absolute neutrophil countOrd ered By: ED PROVIDER on 05-16-2025 Neutrophils (Bld) [#/Vol] 5.2 10*3/uL 2.0-7.7 [facility] Anion gap in Serum or Plasma Ordered By: Aleks Scruggs on 05-16-2025 Anion gap [Moles/Vol] 13 mmol/L 5-15 [facility] Automated lymphocyte count a s percentage of total leukocytesOrdered By: ED PROVIDER on 05-16-2025 Lymphocytes/100 WBC Auto (Unsp spec) 20.8 % 19-41 [facility] BUN/creatinine ratioOrdered By: Aleks Scruggs on 05-16-2025 Urea nitrogen/Creatinine [Mass ratio] 16.9 mg/mg 10-20 [facility] Basophil percentageOrdered B y: ED PROVIDER on 05-16-2025 Basophils/100 WBC (Bld) 0.3 % 0-1 [facility] Carbon dioxide, total [Moles /volume] in Central venous bloodOrdered By: Aleks Scruggs on 05-16-2025 CO2 [Moles/Vol] 22.0 mmol/L 21.0-32.0 [facility] Chloride assayOrdered By: Juan Alberto Scruggs on 05-16-2025 Chloride [Moles/Vol] 101 mmol/L 98-108 [facility] Eosinophil percentageOrdered By: ED PROVIDER on 05-16-2025 Eosinophils/100 WBC (Bld) 0.3 % 0-5 [facility] Erythrocyte distribution wid th ratioOrdered By: ED PROVIDER on 05-16-2025 Erythrocyte distribution width (RBC) [Ratio] 11.9 % 11.6-14.6 [facility] Erythrocyte distribution wid th standard deviationOrdered By: ED PROVIDER on 05-16-2025 Erythrocyte distribution width (RBC) [Ratio] 37.5 fl 35.1-43.9 [facility] Glomerular filtration rate ( GFR) estimation/1.73 sq m using serum, plasma, or whole bOrdered By: Aleks Scruggs on 05-16-2025 GFR/1.73 sq M.predicted among non-blacks MDRD (S/P/Bld) [Vol rate/Area] 91 mL/min/{1.73_m2} >60 [facility] Comment on above: mL/min/1.73m2 CKD-EP I Creatinine Equation (2020) Hematocrit Auto (Bld) [Volum e fraction]Ordered By: ED PROVIDER on 05-16-2025 Hematocrit (Bld) [Volume fraction] 41.2 % 37-47 [facility] Hemoglobin measurementOrdere d By: ED PROVIDER on 05-16-2025 Hemoglobin (Bld) [Mass/Vol] 13.8 g/dL 12.0-15.0 [facility] Immature granulocytes/100 WB C Auto (Bld)Ordered By: ED PROVIDER on 05-16-2025 Immature granulocytes/100 WBC (Bld) 0.300 % 0.0-0.9 [facility] Comment on above: IG% - Immature Granu locytes (promyelocytes, myelocytes and metamyelocytes) > 1% indicates that a LEFT SHIFT is Present. MCV (mean corpuscular volume ) determinationOrdered By: ED PROVIDER on 05-16-2025 MCV (RBC) [Entitic vol] 86.4 fL 81-99 [facility] Mean corpuscular hemoglobin (MCH) determinationOrdered By: ED PROVIDER on 05-16-2025 MCH (RBC) [Entitic mass] 28.9 pg 27.0-32.0 [facility] Mean corpuscular hemoglobin concentration (MCHC) determinationOrdered By: ED PROVIDER on 05-16-2025 MCHC (RBC) [Mass/Vol] 33.5 g/dL 32-36 [facility] Mean platelet volume determi nationOrdered By: ED PROVIDER on 05-16-2025 Platelet mean volume (Bld) [Entitic vol] 9.9 fL 6.2-12.0 [facility] Monocyte percentageOrdered B y: ED PROVIDER on 05-16-2025 Monocytes/100 WBC (Bld) 5.3 % 0-10 [facility] Neutrophil percentageOrdered By: ED PROVIDER on 05-16-2025 Neutrophils/100 WBC (Bld) 73.0 % High 47-70 [facility] Nucleated red blood cell per centageOrdered By: ED PROVIDER on 05-16-2025 Nucleated RBC/100 WBC (Bld) [Ratio] 0 % 0-5 [facility] Platelet countOrdered By: ED PROVIDER on 05-16-2025 Platelets (Bld) [#/Vol] 328 10*3/uL 150-450 [facility] Potassium measurement (mass/ volume)Ordered By: Aleks Scruggs on 05-16-2025 Potassium (Unsp spec) [Mass/Vol] 3.6 mmol/L 3.3-5.1 [facility] RBC Auto (Bld) [#/Vol]Ordere d By: ED PROVIDER on 05-16-2025 RBC (Bld) [#/Vol] 4.77 10*6/uL 4.2-5.4 [facility] Serum creatinine measurement (mass/volume)Ordered By: Aleks Scruggs on 05-16-2025 Creatinine [Mass/Vol] 0.74 mg/dL 0.70-1.20 [facility] Serum glucose measurement (m ass/volume)Ordered By: Aleks Scruggs on 05-16-2025 Glucose [Mass/Vol] 125 mg/dL High 70-99 [facility] Serum or plasma calcium kassandra urement (mass/volume)Ordered By: Aleks Scruggs on 05-16-2025 Calcium [Mass/Vol] 9.6 mg/dL 7.6-11.0 [facility] Serum or plasma urea nitroge n measurement (mass/volume)Ordered By: Aleks Scruggs on 05-16-2025 Urea nitrogen [Mass/Vol] 13 mg/dL 4-19 [facility] Sodium levelOrdered By: Alex Scruggs on 05-16-2025 Sodium [Moles/Vol] 136 mmol/L 133-145 [facility] Troponin T.cardiac [Mass/vol ume] in Serum or Plasma by High sensitivity methodOrdered By: Aleks Scruggs on 05-16-2025 Troponin T.cardiac High sensitivity method [Mass/Vol] < 6 ng/L <14 [facility] Troponin T.cardiac High sensitivity method [Mass/Vol] < 6 ng/L <14 [facility] White blood cell (WBC) count Ordered By: ED PROVIDER on 05-16-2025 WBC (Bld) [#/Vol] 7.1 10*3/uL 4.4-11.0 [facility] Knee 4 or More Viewson 05-04 Knee 4 or More Views [facility] [address] [place] [address] Knee 4 or More Views MR#: [id number] Acct: [id number] Name: QI PHILIPPE Rep #: [id number] : 1965 F 60 From: Augustus Helton MD PCP: Dr. Bret Gomez MD Status: DEP AMB Study: Knee 4 or More Views Date of Exam: 05/04/25 Exam# [id number] Ordering Dr: Coty Orourke PROCEDURE: KNEE 4 OR MORE VIEWS 05/04/2025 REASON FOR EXAM: NEW PT EVAL, L KNEE PAIN, NKI, RECENT POPPING AND SWELLING TECHNIQUE: Four views of the left knee. COMPARISON: None. FINDINGS: Asymmetric joint space narrowing and marginal osteophytes. No evidence acute fracture or dislocation. No knee joint effusion. RAD/Knee 4 or More Views IMPRESSION: Moderate osteoarthrosis. No acute osseous abnormalities. Reading Location: [id number] CC: NICOLE Orourke; Dr. Bret Gomez MD Launch Leader: Signed Normal [facility] Orthopedic Visit Reporton Orthopedic Visit Report [facility] [address] [place] [address] [address] [place] [address] OFFICE VISIT Date of Service: 05/04/25 MR#: [id number] Acct: [id number] Name: QI PHILIPPE Rep #: [id number] : 1965 Provider: NICOLE kennedy Age/Sex: 60/F Location: [email or web address] Status: Signed Intake Vital Signs 07/16/24 12:23 05/04/25 12:55 Height 5 ft 9 in 5 ft 9 in Weight: 175 lb 2 oz BMI 25.8 Intake Visit Reasons: LEFT KNEE Chief Complaint: Left knee pain Accompanied by: Self Is patient in pain?: No Allergies metronidazole Allergy (Mild, Verified 05/04/25 12:57) Rash Medications ???Medication ???Instructions ???Recorded ???Confirmed ???Type lisinopril 20 1 tab PO DAILY 06/11/14 05/04/25 H istory mg-hydrochlorothiazide 25 mg tablet multivitamin 1 tab PO DAILY 02/06/21 05/04/25 H istory calcium 600 mg (as 1 tab PO DAILY 05/01/22 05/04/25 H istory carbonate)-vitamin D3 10 mcg (400 unit) tablet (Calcium 600 + D(3)) metformin 500 mg tablet 250 mg PO BID 10/28/23 05/04/25 Hi story pravastatin 40 mg tablet 40 mg PO QHS 03/21/24 05/04/25 His tory omeprazole 40 mg capsule,delayed 40 mg PO QDAY #90 caps 04/15/25 Rx release sucralfate 1 gram tablet 1 g PO TID ulcers #90 tabs 5 05/04/25 Rx Have you fallen in the past year?: No PFSH Medical History Abdominal pain Fatty liver High cholesterol Easy bruising History of hiatal hernia History of ulceration Leg cramps Wears glasses Post-menopausal Depression Anxiety Back pain History of IBS Gastric reflux Former smoker History of stress test FH: colon cancer Hx of colonic polyp GERD (gastroesophageal reflux disease) IBS (irritable bowel syndrome) Arthritis Diabetes Chest pain Hypertension Surgical History H/O rotator cuff surgery History of esophagogastroduodenoscopy (EGD) S/P laparoscopic cholecystectomy S/P knee surgery Family History Mother Colon cancer CAD (coronary artery disease) Hypertension Aunt Colon cancer Father CAD (coronary artery disease) Social History Smoking Status: Former smoker alcohol intake: current alcohol intake frequency: holidays/special occasions only HPI LEFT KNEE Details: This documentation accurately reflects the service provided and the decisions made by me, Coty Orourke, LACHELLE-C 05/04/25 3362. Part of today???s visit was documented by Carlos Lara MA, acting as scribe. QI PHILIPPE is a 60 year old F here today for left knee pain. Patient is having stiffness in the left knee. She does get sharp pain in the left knee sometimes. Today when she got up this morning it wasn't really bad. This has been going on for 2 weeks. She was in [place] hiking and visiting. Patient felt it pop and crack. She didn't feel pain with the popping or cracking. When she felt the pop she was having trouble walking on her knee. Patient went to [facility] right after to get a knee brace to give her more support. Over the past couple weeks it has been getting better. Patient states that she has tore her ACL 4 times in the past. Patient had Arthroscopic surgery 20 years on the left knee. She got her surgery done right at the [facility]. Moving the left knee a certain way makes the pain worse. Patient denies any recent or past injections in the left knee. She hasn't done physical therapy recently. Ice and heat helps the pain go away. Patient is a type 2 diabetic, but denies any blood thinners. Patient denies any smoking, or drug use. Patient denies any numbness in the feet or toes. Agree with above. Qi is a pleasant 60-year-old female presenting for initial evaluation of acute on chronic left knee pain. Patient has been having catching symptoms for approximately 1 year especially with hiking activities. 2-3 weeks ago sudden onset of acute pain after hiking with swelling, limited range of motion and increase in crepitus symptoms. Swelling since this injury ACL surgical intervention - maybe [facility] approx 20 yrs ago after multiple injuries to the ACL. Tylenol prn helps, brace helps Improvement to date 80% improved Aggravated with certain motions, turning with foot planted Better with Tylenol, bracing and activity modification ROS Const All systems reviewed are unremarkable except as noted in H and other (A O x 3, no apparent distress. No recent illness.) ENT Denies dizziness Card Denies chest pain, Denies dyspnea, Denies edema and Reports other (No palpitations) Resp Denies cough, Denies dyspnea and Reports other (No recent U (more content not included)... Normal [facility] PAP IG HPV HR APTIMAon 10-29 ADEQ Comment Normal . [facility] Comment on above: Order Comment: Speci men Comment: [id number] Comment: Source.............Cervix;EndocervixSpecimen Comment: No. of containers..01 ThinPrep Vial Result Comment: Spec imen processed and examined but unsatisfactory for evaluation of epithelial abnormality because of insufficient cellularity. Performed By: #### L 7400.0377 ####[facility] [address] [place], [address] COMM . Normal . [facility] Comment on above: Order Comment: Speci men Comment: [id number] Comment: Source.............Cervix;EndocervixSpecimen Comment: No. of containers..01 ThinPrep Vial Performed By: #### L 7400.0377 ####[facility] [address] [place], [place], [id number] COMMENT Comment Normal . [facility] Comment on above: Order Comment: Speci men Comment: [id number] Comment: Source.............Cervix;EndocervixSpecimen Comment: No. of containers..01 ThinPrep Vial Result Comment: This liquid based ThinPrep(R) pap test was screened with the use of an image guided system. Performed By: #### L 7400.0377 ####[facility] [address] [place], [place], [address] DIAG Comment Normal . [facility] Comment on above: Order Comment: Speci men Comment: [id number] Comment: Source.............Cervix;EndocervixSpecimen Comment: No. of containers..01 ThinPrep Vial Result Comment: UNSA TISFACTORY FOR EVALUATION. Performed By: #### L 7400.0377 ####[facility] [address] [place], [place], [id number] HPV APTIMA, HR Negative Normal Negative [facility] Comment on above: Order Comment: Speci men Comment: [id number] Comment: Source.............Cervix;EndocervixSpecimen Comment: No. of containers..01 ThinPrep Vial Result Comment: This nucleic acid amplification test detects fourteen high- risk HPV types (16,18,31,33,35,39,45,51,52,56,58,59,66,68) without differentiation. Performed at: [facility] [address] [place] [id number] Master Of Ceremonies: Jonhie Douglas MD, Phone: [phone] Performed at: [address] [id number] Master Of Ceremonies: Sharonda Burgess MD, Phone: [phone] Performed at: =[facility] [id number] Master Of Ceremonies: Sharonda Burgess MD, Phone: [phone] Performed By: #### L 7400.0377 ####[facility] [address] [place], [place], [address] PAPSMR Comment Normal . [facility] Comment on above: Order Comment: Speci men Comment: [id number] Comment: Source.............Cervix;EndocervixSpecimen Comment: No. of containers..01 ThinPrep Vial Result Comment: The Pap smear is a screening test designed to aid in the detection of premalignant and malignant conditions of the uterine cervix. It is not a diagnostic procedure and should not be used as the sole means of detecting cervical cancer. Both false-positive and false-negative reports do occur. Performed By: #### L 7400.0377 ####[facility] [address] [place], [place], [id number] PERFORM Comment Normal . [facility] Comment on above: Order Comment: Speci men Comment: [id number] Comment: Source.............Cervix;EndocervixSpecimen Comment: No. of containers..01 ThinPrep Vial Result Comment: Yokasta Webster, Drier Operator (ASCP) Performed By: #### L 7400.0377 ####[facility] [address] [place], [place], [address] QC REV Comment Normal . [facility] Comment on above: Order Comment: Speci men Comment: [id number] Comment: Source.............Cervix;EndocervixSpecimen Comment: No. of containers..01 ThinPrep Vial Result Comment: Cedrick Peralta, Drier Operator (ASCP) Performed By: #### L 7400.0377 ####[facility] [address] [place], [place], [id number] RECOMM Comment Normal . [facility] Comment on above: Order Comment: Speci men Comment: [id number] Comment: Source.............Cervix;EndocervixSpecimen Comment: No. of containers..01 ThinPrep Vial Result Comment: Sugg est follow up as clinically appropriate. Performed By: #### L 7400.0377 ####[facility] [address] [place], [place], [phone] CBC W/Diff, Automatedon 11-0 -2023 Absolute Lymph 1.73 X10 3/uL Normal 0.83-4.51 [facility] Comment on above: Order Comment: Order Date: 09/27/24Order Info: [id number] - CBCD Performed By: #### L 7000.0700, M100.0605, L7000.0300, M100.7900, L7000.0750, M7400.3302, M600.5000, M100.637 #### [facility] [address] [place], [address] Absolute Neut 9.4 X10 3/uL High 2.0-7.7 [facility] Comment on above: Order Comment: Order Date: 09/27/24Order Info: 018-1 - CBCD Performed By: #### L 7000.0700, M100.0605, L7000.0300, M100.7900, L7000.0750, M7400.3302, M600.5000, M100.637 #### [facility] [address] [place], [place], [address] (988) Basophils/100 WBC (Bld) 0.2 % Normal 0-1 [facility] Comment on above: Order Comment: Order Date: 09/27/24Order Info: [id number] - CBCD Performed By: #### L 7000.0700, M100.0605, L7000.0300, M100.7900, L7000.0750, M7400.3302, M600.5000, M100.637 #### [facility] [address] [place], [address] Eosinophils/100 WBC (Bld) 1.3 % Normal 0-5 [facility] Comment on above: Order Comment: Order Date: 09/27/24Order Info: [id number] - CBCD Performed By: #### L 7000.0700, M100.0605, L7000.0300, M100.7900, L7000.0750, M7400.3302, M600.5000, M100.637 #### [facility] [address] [place], [place], [address] ([phone]) Erythrocyte distribution width (RBC) [Ratio] 11.9 % Normal 11.6-14.6 [facility] Comment on above: Order Comment: Order Date: 09/27/24Order Info: 0184-1 - CBCD Performed By: #### L 7000.0700, M100.0605, L7000.0300, M100.7900, L7000.0750, M7400.3302, M600.5000, M100.637 #### [facility] [address] [place], [address] Hematocrit (Bld) [Volume fraction] 44.0 % Normal 37-47 [facility] Comment on above: Order Comment: Order Date: 09/27/24Order Info: [id number] - CBCD Performed By: #### L 7000.0700, M100.0605, L7000.0300, M100.7900, L7000.0750, M7400.3302, M600.5000, M100.637 #### [facility] [address] [place], [address] Hemoglobin (Bld) [Mass/Vol] 14.0 g/dL Normal 12.0-15.0 [facility] Comment on above: Order Comment: Order Date: 09/27/24Order Info: 0184-1 - CBCD Performed By: #### L 7000.0700, M100.0605, L7000.0300, M100.7900, L7000.0750, M7400.3302, M600.5000, M100.637 #### [facility] [address] [place], [address] IG% 0.300 Normal 0.0-0.9 [facility] Comment on above: Order Comment: Order Date: 09/27/24Order Info: [id number] - CBCD Result Comment: IG% - Immature Granulocytes (promyelocytes, myelocytes and metamyelocytes) > 1% indicates that a LEFT SHIFT is Present. Performed By: #### L 7000.0700, M100.0605, L7000.0300, M100.7900, L7000.0750, M7400.3302, M600.5000, M100.637 #### [facility] [address] [place], [address] Lymphocytes/100 WBC (Bld) 14.4 % Low 19-41 [facility] Comment on above: Order Comment: Order Date: 09/27/24Order Info: 0184-1 - CBCD Performed By: #### L 7000.0700, M100.0605, L7000.0300, M100.7900, L7000.0750, M7400.3302, M600.5000, M100.637 #### [facility] [address] [place], [address] MCH (RBC) [Entitic mass] 28.9 pg Normal 27.0-32.0 [facility] Comment on above: Order Comment: Order Date: 09/27/24Order Info: 0184-1 - CBCD Performed By: #### L 7000.0700, M100.0605, L7000.0300, M100.7900, L7000.0750, M7400.3302, M600.5000, M100.637 #### [facility] [address] [place], [address] MCHC (RBC) [Mass/Vol] 31.8 g/dL Low 32-36 [facility] Comment on above: Order Comment: Order Date: 09/27/24Order Info: 0184-1 - CBCD Performed By: #### L 7000.0700, M100.0605, L7000.0300, M100.7900, L7000.0750, M7400.3302, M600.5000, M100.637 #### [facility] [address] [place], [address] MCV (RBC) [Entitic vol] 90.7 fL Normal 81-99 [facility] Comment on above: Order Comment: Order Date: 09/27/24Order Info: 0184-1 - CBCD Performed By: #### L 7000.0700, M100.0605, L7000.0300, M100.7900, L7000.0750, M7400.3302, M600.5000, M100.637 #### [facility] [address] [place], [address] Monocytes/100 WBC (Bld) 5.7 % Normal 0-10 [facility] Comment on above: Order Comment: Order Date: 09/27/24Order Info: 0184- - CBCD Performed By: #### L 7000.0700, M100.0605, L7000.0300, M100.7900, L7000.0750, M7400.3302, M600.5000, M100.637 #### [facility] [address] [place], [address] Neutrophils/100 WBC (Bld) 78.1 % High 47-70 [facility] Comment on above: Order Comment: Order Date: 09/27/24Order Info: 0184-1 - CBCD Performed By: #### L 7000.0700, M100.0605, L7000.0300, M100.7900, L7000.0750, M7400.3302, M600.5000, M100.637 #### [facility] [address] [place], [address] Nucleated RBC (Bld) [#/Vol] 0 10*3/uL Normal 0-5 [facility] Comment on above: Order Comment: Order Date: 09/27/24Order Info: 0184-1 - CBCD Performed By: #### L 7000.0700, M100.0605, L7000.0300, M100.7900, L7000.0750, M7400.3302, M600.5000, M100.637 #### [facility] [address] [place], [address] Platelet mean volume (Bld) [Entitic vol] 10.5 fL Normal 6.2-12.0 [facility] Comment on above: Order Comment: Order Date: 09/27/24Order Info: 0184-1 - CBCD Performed By: #### L 7000.0700, M100.0605, L7000.0300, M100.7900, L7000.0750, M7400.3302, M600.5000, M100.637 #### [facility] [address] [place], [address] Platelets (Bld) [#/Vol] 333 10*3/uL Normal 150-450 [facility] Comment on above: Order Comment: Order Date: 09/27/24Order Info: 0184-1 - CBCD Performed By: #### L 7000.0700, M100.0605, L7000.0300, M100.7900, L7000.0750, M7400.3302, M600.5000, M100.637 #### [facility] [address] [place], [address] RBC (Bld) [#/Vol] 4.85 10*6/uL Normal 4.2-5.4 [facility] Comment on above: Order Comment: Order Date: 09/27/24Order Info: 0184-1 - CBCD Performed By: #### L 7000.0700, M100.0605, L7000.0300, M100.7900, L7000.0750, M7400.3302, M600.5000, M100.637 #### [facility] [address] [place], [address] RDW SD 39.4 fl Normal 35.1-43.9 [facility] Comment on above: Order Comment: Order Date: 09/27/24Order Info: 0184-1 - CBCD Performed By: #### L 7000.0700, M100.0605, L7000.0300, M100.7900, L7000.0750, M7400.3302, M600.5000, M100.637 #### [facility] [address] [place], [place], [address] WBC (Bld) [#/Vol] 12.0 10*3/uL High 4.4-11.0 [facility] Comment on above: Order Comment: Order Date: 09/27/24Order Info: [id number] - CBCD Performed By: #### L 7000.0700, M100.0605, L7000.0300, M100.7900, L7000.0750, M7400.3302, M600.5000, M100.637 #### [facility] [address] [place], [place], [id number] Comprehensive Metabolic Prof ilon 09-27-2024 Albumin [Mass/Vol] 4.3 g/dL Normal 3.2-5.0 [facility] Comment on above: Order Comment: Order Date: 09/27/24Order Info: [id number] - CMPOrder Info: [id number] - LIPIDComments: non-fastingOrder Info: [id number] - TSHnon-fasting Performed By: #### L 7000.0700, M100.0605, L7000.0300, M100.7900, L7000.0750, M7400.3302, M600.5000, M100.637 #### [facility] [address] [place], [place], [id number] Albumin/Globulin [Mass ratio] 1.2 {ratio} Normal 0.9-2.4 [facility] Comment on above: Order Comment: Order Date: 09/27/24Order Info: [id number] - CMPOrder Info: [id number] - LIPIDComments: non-fastingOrder Info: [id number] - TSHnon-fasting Performed By: #### L 7000.0700, M100.0605, L7000.0300, M100.7900, L7000.0750, M7400.3302, M600.5000, M100.637 #### [facility] [address] [place], [address] ALK P 69 U/L Normal 45-117 [facility] Comment on above: Order Comment: Order Date: 09/27/24Order Info: [id number] - CMPOrder Info: [id number] - LIPIDComments: non-fastingOrder Info: [id number] - TSHnon-fasting Performed By: #### L 7000.0700, M100.0605, L7000.0300, M100.7900, L7000.0750, M7400.3302, M600.5000, M100.637 #### [facility] [address] [place], [place], [phone] ALT [Catalytic activity/Vol] 31 U/L Normal 13-56 [facility] Comment on above: Order Comment: Order Date: 09/27/24Order Info: [id number] - CMPOrder Info: [id number] - LIPIDComments: non-fastingOrder Info: [id number] - TSHnon-fasting Performed By: #### L 7000.0700, M100.0605, L7000.0300, M100.7900, L7000.0750, M7400.3302, M600.5000, M100.637 #### [facility] [address] [place], [address] AST [Catalytic activity/Vol] 24 U/L Normal 15-37 [facility] Comment on above: Order Comment: Order Date: 09/27/24Order Info: [id number] - CMPOrder Info: [id number] - LIPIDComments: non-fastingOrder Info: 3 - TSHnon-fasting Performed By: #### L 7000.0700, M100.0605, L7000.0300, M100.7900, L7000.0750, M7400.3302, M600.5000, M100.637 #### [facility] [address] [place], [address] Bilirubin [Mass/Vol] 0.70 mg/dL Normal 0.20-1.00 [facility] Comment on above: Order Comment: Order Date: 09/27/24Order Info: [id number] - CMPOrder Info: [id number] - LIPIDComments: non-fastingOrder Info: [id number] - TSHnon-fasting Result Comment: For patients on eltrombopag therapy, use of Dimension [place] TBIL is not recommended. Performed By: #### L 7000.0700, M100.0605, L7000.0300, M100.7900, L7000.0750, M7400.3302, M600.5000, M100.637 #### [facility] [address] [place], [address] BUN/CRE 21.2 RATIO High 10-20 [facility] Comment on above: Order Comment: Order Date: 09/27/24Order Info: [id number] - CMPOrder Info: [id number] - LIPIDComments: non-fastingOrder Info: [id number] - TSHnon-fasting Performed By: #### L 7000.0700, M100.0605, L7000.0300, M100.7900, L7000.0750, M7400.3302, M600.5000, M100.637 #### [facility] [address] [place], [address] CA,Total 9.2 mg/dL Normal 8.5-10.1 [facility] Comment on above: Order Comment: Order Date: 09/27/24Order Info: 07 - CMPOrder Info: [id number] - LIPIDComments: non-fastingOrder Info: [id number] - TSHnon-fasting Performed By: #### L 7000.0700, M100.0605, L7000.0300, M100.7900, L7000.0750, M7400.3302, M600.5000, M100.637 #### [facility] [address] [place], [address] Chloride [Moles/Vol] 102 mmol/L Normal 98-107 [facility] Comment on above: Order Comment: Order Date: 09/27/24Order Info: [id number] - CMPOrder Info: [id number] - LIPIDComments: non-fastingOrder Info: [id number] - TSHnon-fasting Performed By: #### L 7000.0700, M100.0605, L7000.0300, M100.7900, L7000.0750, M7400.3302, M600.5000, M100.637 #### [facility] [address] [place], [address] CO2 [Moles/Vol] 26.0 mmol/L Normal 21.0-32.0 [facility] Comment on above: Order Comment: Order Date: 09/27/24Order Info: [id number] - CMPOrder Info: [id number] - LIPIDComments: non-fastingOrder Info: [id number] - TSHnon-fasting Performed By: #### L 7000.0700, M100.0605, L7000.0300, M100.7900, L7000.0750, M7400.3302, M600.5000, M100.637 #### [facility] [address] [place], [address] Creatinine [Mass/Vol] 0.75 mg/dL Normal 0.55-1.02 [facility] Comment on above: Order Comment: Order Date: 09/27/24Order Info: 0786 - CMPOrder Info: [id number] - LIPIDComments: non-fastingOrder Info: 3 - TSHnon-fasting Result Comment: The validity of the calculated GFR GFRAA in patients over 70 years has not been determined. Clinical correlation is essential. Performed By: #### L 7000.0700, M100.0605, L7000.0300, M100.7900, L7000.0750, M7400.3302, M600.5000, M100.637 #### [facility] [address] [place], [address] EST GFR - AA 100 mL/min Normal >60 [facility] Comment on above: Order Comment: Order Date: 09/27/24Order Info: 0786- - CMPOrder Info: [id number] - LIPIDComments: non-fastingOrder Info: 6-3 - TSHnon-fasting Result Comment: Afri can [place] GFR Calc Performed By: #### L 7000.0700, M100.0605, L7000.0300, M100.7900, L7000.0750, M7400.3302, M600.5000, M100.637 #### [facility] [address] [place], [place], [id number] GAP 7 Normal 5-15 [facility] Comment on above: Order Comment: Order Date: 09/27/24Order Info: 07 - CMPOrder Info: [id number] - LIPIDComments: non-fastingOrder Info: 6-3 - TSHnon-fasting Performed By: #### L 7000.0700, M100.0605, L7000.0300, M100.7900, L7000.0750, M7400.3302, M600.5000, M100.637 #### [facility] [address] [place], [place], [phone] GFR/1.73 sq M.predicted among non-blacks MDRD (S/P/Bld) [Vol rate/Area] 83 mL/min/{1.73_m2} Normal >60 [facility] Comment on above: Order Comment: Order Date: 09/27/24Order Info: 0786- - CMPOrder Info: [id number] - LIPIDComments: non-fastingOrder Info: 6-3 - TSHnon-fasting Result Comment: Non- GFR Calc Performed By: #### L 7000.0700, M100.0605, L7000.0300, M100.7900, L7000.0750, M7400.3302, M600.5000, M100.637 #### [facility] [address] [place], [address] Globulin (S) [Mass/Vol] 3.5 g/dL Normal 2.2-4.2 [facility] Comment on above: Order Comment: Order Date: 09/27/24Order Info: 0786- - CMPOrder Info: [id number] - LIPIDComments: non-fastingOrder Info: 3016 - TSHnon-fasting Performed By: #### L 7000.0700, M100.0605, L7000.0300, M100.7900, L7000.0750, M7400.3302, M600.5000, M100.637 #### [facility] [address] [place], [address] Glucose [Mass/Vol] 95 mg/dL Normal 74-106 [facility] Comment on above: Order Comment: Order Date: 09/27/24Order Info: 0786- - CMPOrder Info: [id number] - LIPIDComments: non-fastingOrder Info: [id number] - TSHnon-fasting Performed By: #### L 7000.0700, M100.0605, L7000.0300, M100.7900, L7000.0750, M7400.3302, M600.5000, M100.637 #### [facility] [address] [place], [address] Potassium [Moles/Vol] 4.0 mmol/L Normal 3.5-5.1 [facility] Comment on above: Order Comment: Order Date: 09/27/24Order Info: 0786- - CMPOrder Info: [id number] - LIPIDComments: non-fastingOrder Info: 6 - TSHnon-fasting Performed By: #### L 7000.0700, M100.0605, L7000.0300, M100.7900, L7000.0750, M7400.3302, M600.5000, M100.637 #### [facility] [address] [place], [place], [phone] ([phone]) Sodium [Moles/Vol] 136 mmol/L Normal 136-145 [facility] Comment on above: Order Comment: Order Date: 09/27/24Order Info: [id number] - CMPOrder Info: [id number] - LIPIDComments: non-fastingOrder Info: 3 - TSHnon-fasting Performed By: #### L 7000.0700, M100.0605, L7000.0300, M100.7900, L7000.0750, M7400.3302, M600.5000, M100.637 #### [facility] [address] [place], [place], [phone] (463) T PROT 7.8 g/dL Normal 6.4-8.2 [facility] Comment on above: Order Comment: Order Date: 09/27/24Order Info: 0786 - CMPOrder Info: [id number] - LIPIDComments: non-fastingOrder Info: [id number] - TSHnon-fasting Performed By: #### L 7000.0700, M100.0605, L7000.0300, M100.7900, L7000.0750, M7400.3302, M600.5000, M100.637 #### [facility] [address] [place], [place], [phone] (887) Urea nitrogen [Mass/Vol] 16 mg/dL Normal 7-18 [facility] Comment on above: Order Comment: Order Date: 09/27/24Order Info: 0786- - CMPOrder Info: [id number] - LIPIDComments: non-fastingOrder Info: [id number] - TSHnon-fasting Performed By: #### L 7000.0700, M100.0605, L7000.0300, M100.7900, L7000.0750, M7400.3302, M600.5000, M100.637 #### [facility] [address] [place], [place], [address] Hemoglobin A1con 09-27-2024 HbA1c (Bld) [Mass fraction] 6.0 % High 3.8-5.6 [facility] Comment on above: Order Comment: Order Date: 09/27/24Order Info: [id number] - A1C Result Comment: Norm al < 5.7 % Prediabetic 5.7 - 6.4 % Diabetic >or= 6.5 % Please note range changes. Performed By: #### L 7000.0700, M100.0605, L7000.0300, M100.7900, L7000.0750, M7400.3302, M600.5000, M100.637 #### [facility] [address] [place], [place], [phone] Lipid Profileon 09-27-2024 Cholesterol [Mass/Vol] 195 mg/dL Normal 200 [facility] Comment on above: Order Comment: Order Date: 09/27/24Order Info: 0786-1 - CMPOrder Info: [id number] - LIPIDComments: non-fastingOrder Info: [id number] - TSHnon-fasting Result Comment: <200 mg/dL Desirable 200-240 mg/dL Borderline >240 mg/dL High Risk Performed By: #### L 7000.0700, M100.0605, L7000.0300, M100.7900, L7000.0750, M7400.3302, M600.5000, M100.637 #### [facility] [address] [place], [place], [id number] Cholesterol in HDL [Mass/Vol] 65 mg/dL Normal [facility] Comment on above: Order Comment: Order Date: 09/27/24Order Info: 0786-1 - CMPOrder Info: [id number] - LIPIDComments: non-fastingOrder Info: 3016-3 - TSHnon-fasting Result Comment: The drugs N-Acetylcysteine and Metamizole may falsely depress this assay. Reference Range HDL <40 mg/dL Low HDL Cholesterol HDL >or= 60 mg/dL High HDL Cholesterol Performed By: #### L 7000.0700, M100.0605, L7000.0300, M100.7900, L7000.0750, M7400.3302, M600.5000, M100.637 #### [facility] [address] [place], [address] Cholesterol in LDL [Mass/Vol] 89 mg/dL Normal 0-130 [facility] Comment on above: Order Comment: Order Date: 09/27/24Order Info: 0786-1 - CMPOrder Info: [id number] - LIPIDComments: non-fastingOrder Info: 3016-3 - TSHnon-fasting Performed By: #### L 7000.0700, M100.0605, L7000.0300, M100.7900, L7000.0750, M7400.3302, M600.5000, M100.637 #### [facility] [address] [place], [address] Cholesterol in VLDL [Mass/Vol] 41 mg/dL High 5-40 [facility] Comment on above: Order Comment: Order Date: 09/27/24Order Info: 0786-1 - CMPOrder Info: [id number] - LIPIDComments: non-fastingOrder Info: 3016-3 - TSHnon-fasting Performed By: #### L 7000.0700, M100.0605, L7000.0300, M100.7900, L7000.0750, M7400.3302, M600.5000, M100.637 #### [facility] [address] [place], [address] Triglyceride [Mass/Vol] 203 mg/dL High [facility] Comment on above: Order Comment: Order Date: 09/27/24Order Info: 0786-1 - CMPOrder Info: [id number] - LIPIDComments: non-fastingOrder Info: 3016-3 - TSHnon-fasting Result Comment: The drugs N-Acetylcysteine and Metamizole may falsely depress this assay. Serum Triglycerides Reference Interval Normal <150 mg/dL Borderline high 150 - 199 mg/dL High 200 - 499 mg/dL Very High > or = 500 mg/dL Performed By: #### L 7000.0700, M100.0605, L7000.0300, M100.7900, L7000.0750, M7400.3302, M600.5000, M100.637 #### [facility] [address] [place], [address] Microalb:Creat Ratio,Random URon 09-27-2024 Creatinine [Mass/Vol] 28.30 mg/dL Normal NO RAN GE EST. [facility] Comment on above: Order Comment: Order Date: 09/27/24Order Info: [id number] - MIACRE Performed By: #### L 7000.0700, M100.0605, L7000.0300, M100.7900, L7000.0750, M7400.3302, M600.5000, M100.637 #### [facility] [address] [place], [address] MALB:CRE TNP Normal <30 mg/g CRE [facility] Comment on above: Order Comment: Order Date: 09/27/24Order Info: 0779-1 - MIACRE Performed By: #### L 7000.0700, M100.0605, L7000.0300, M100.7900, L7000.0750, M7400.3302, M600.5000, M100.637 #### [facility] [address] [place], [address] MICROALBUMIN,UR < 5.0 Normal NO RANGE EST. [facility] Comment on above: Order Comment: Order Date: 09/27/24Order Info: 0779-1 - MIACRE Performed By: #### L 7000.0700, M100.0605, L7000.0300, M100.7900, L7000.0750, M7400.3302, M600.5000, M100.637 #### [facility] [address] [place], [address] Thyroid Stim Hormone (TSH)on 09-27-2024 TSH 0.640 uIU/mL Normal 0.358-3.74 0 [facility] Comment on above: Order Comment: Order Date: 09/27/24Order Info: 0786-1 - CMPOrder Info: [id number] - LIPIDComments: non-fastingOrder Info: 3016-3 - TSHnon-fasting Performed By: #### L 7000.0700, M100.0605, L7000.0300, M100.7900, L7000.0750, M7400.3302, M600.5000, M100.637 #### [facility] [address] [place], [place], [address] Gastric Emptying Studyon Gastric Emptying Study [facility] Imaging Services [address] [place], [place] [address] Gastric Emptying Study MR#: [id number] Acct: [id number] Name: QI PHILIPPE Rep #: [id number] : 1965 F 59 From: Jairo Mao PCP: Dr. Bret Gomez MD Status: REG CLI Study: Gastric Emptying Study Date of Exam: 08/12/24 Exam# [id number] Ordering Dr: Gumaro Sandhu DO [id number] CLINICAL: 59-year-old female with history of refractory gastroesophageal reflux disease and abdominal bloating. SEMI-SOLID PHASE 99m Tc SULFUR COLLOID GASTRIC EMPTYING STUDY COMPARISON: None available FINDINGS: The patient was administered 1.0 mCi of 99m Tc sulfur colloid mixed with oatmeal and consumed per os. Image acquisitions in the anterior-posterior projections were obtained for 60 minutes. There is prompt visualization of the stomach. There is no gastroesophageal reflux identified. The T ? raw data emptying was calculated to be 27.64 minutes, (Normal: 12-56 minutes). NM/Gastric Emptying Study IMPRESSION: 1. NORMAL 99m Tc sulfur colloid semi-solid phase (oatmeal) gastric emptying imaging examination. A. There is normal and preserved semi-solid phase gastric emptying compared to normal controls. (Windy et al, J Nucl Med Tech 38: 186, 2010). Electronically Signed: Jairo Busch DO at 8:40 EDT , CC: Dr. Bret Gomez MD; Gumaro Sandhu DO Launch Leader: Signed Normal [facility] Gastroenterology Visit Repor ton 08-04-[address] [facility] [address] [place] [address] OFFICE VISIT Date of Service: 08/04/24 MR#: [id number] Acct: [id number] Name: QI PHILIPPE Rep #: [id number] : 1965 Provider: Gumaro Sandhu DO Age/Sex: 59/F Location: [facility] Status: Signed Intake Vital Signs 10/29/23 07:04 07/16/24 12:23 Height 5 ft 9 in 5 ft 9 in Intake Visit Reasons: 6 M FU Allergies metronidazole Allergy (Mild, Verified 07/16/24 12:20) Rash Medications ???Medication ???Instructions ???Recorded ???Confirmed ???Type lisinopril 20 1 tab PO DAILY 06/11/14 08/04/24 History mg-hydrochlorothiazide 25 mg tablet multivitamin 1 tab PO DAILY 02/06/21 08/04/24 History calcium carbonate 600 mg-vitamin 1 tab PO DAILY 05/01/22 08/04/24 History D3 10 mcg (400 unit) tablet (Calcium 600 + D(3)) metformin 500 mg tablet 250 mg PO BID 10/28/23 08/04/24 History pravastatin 40 mg tablet 40 mg PO QHS 03/21/24 08/04/24 History omeprazole 40 mg capsule,delayed 40 mg PO BID #60 caps 06/04/24 08/04/24 Rx release sucralfate 1 gram tablet 1 g PO TID ulcers #90 tabs 08/23/24 09/11/24 Rx PFSH Medical History (Updated 07/16/24 @ 13:[address] Naik Friend, DO) Abdominal pain Fatty liver High cholesterol Easy bruising History of hiatal hernia History of ulceration Leg cramps Wears glasses Post-menopausal Depression Anxiety Back pain History of IBS Gastric reflux Former smoker History of stress test FH: colon cancer Hx of colonic polyp GERD (gastroesophageal reflux disease) IBS (irritable bowel syndrome) Arthritis Diabetes Chest pain Hypertension Surgical History H/O rotator cuff surgery History of esophagogastroduodenoscopy (EGD) S/P laparoscopic cholecystectomy S/P knee surgery Family History Mother Colon cancer CAD (coronary artery disease) Hypertension Aunt Colon cancer Father CAD (coronary artery disease) Social History Smoking Status: Former smoker alcohol intake: current alcohol intake frequency: holidays/special occasions only HPI HPI Details: QI PHILIPPE, is a 59 F who presents to the office today for follow up. FH mother colon cancer Prior workup: ? CT abd/pel 01.25.22 right lung nodule, stable; colonic diverticulosis; moderate colonic fecal material *BGI established 02.12.22 with loose stools RUQ discomfort nausea and flatulence with onset in November. Hyoscyamine ineffective, Lomotil helpful. ? EGD/colonoscopy 05.08.22 EGD irregular Zline; two oozing cratered gastric ulcers. H.Pylori WNL ? Colonoscopy diverticulosis; 5mm TA polyp; congested mucosa OV 05.15.22 start sucralfate and omeprazole. ? Biochemical 05.22.22 CBC, CMP, prolactin, PTHIN, TSH without pertinent abnormality ? Chromogranin A H459.2, gastrin H929 ? LILY 06.10.22 WNL OV 08.28.22 reschedule EGD; LILY scan negative. ? EGD 10.23.22 non-bleeding superficial gastric ulcer. H.Pylori WNL OV 11.06.22 update biochemical results ? Biochemical 11.06.22 gastrin, chromogranin A WNL ? Biochemical 09.01.23 Chromogranin A H584.9, Gastrin H329 ? EGD 10.29.23 gastritis. H.Pylori WNL Contact, VM 12.10.23 with results. OV 02.13.24 Sx overall improved. Daily BM formed most of time, occasional diarrhea with certain foods. Occasional bloating. Omeprazole 40 mg daily and sucralfate 1 gm PRN for RUQ abdominal pain effective. EGD 07.16.24 Esophageal mucosal changes suggestive of short-segment King's esophagus. Biopsied. Enlarged gastric folds. Biopsied. No gross lesions in the second portion of the d uodenum. OV 9.11.24 pt reports constipation since starting sucralfate. Reports that she takes women's laxatives and benefiber which is helpful for her. pt reports that her GET is scheduled for jul 25. ROS Const Constitutional: No fatigue, fever(s) or weight change ENT ENT: No difficulty swallowing Gastro GI: Positive for bloating, constipation and excessive flatus; No abdominal pain, belching, change in bowel habits, change in stool character, coffee ground emesis, cramping, diarrhea, heartburn, difficulty swallowing, feeling full early, incontinent of stools, Vomiting blood/hematemesis, Blood in stool, loose stools, Black,tarry stools, nause (more content not included)... Normal [facility] Calprotectin, Stoolon [address] 149 ug/g Abnormal 0-120 [facility] Comment on above: Order Comment: Test( s) 139758-Hsho, Neutral; 954215-Ixhe, Total was developed and its performance characteristics determined by [facility]. It has not been cleared or approved by the Food and Drug Administration. Result Comment: Conc entration Interpretation Follow-Up < 5 - 50 ug/g Normal None >50 -120 ug/g Borderline Re-evaluate in 4-6 weeks >120 ug/g Abnormal Repeat as clinically indicated Performed at: [facility] [address] [id number] Master Of Ceremonies: Johnnie Cota PhD, Phone: [phone] Performed at: [facility] Lab[address] [id number] Master Of Ceremonies: Jr Gustafson MD, Phone: [phone] Performed By: #### L 7000.0700, M100.0605, L7000.0300, M100.7900, L7000.0750, M7400.3302, M600.5000, M100.637 #### [facility] [place], [address] Fecal Fat, Qualitativeon FATS, NEUTRAL Normal Normal . [facility] Comment on above: Order Comment: Test( s) 570326-Sbqh, Neutral; 015306-Nvqj, Total was developed and its performance characteristics determined by [facility]. It has not been cleared or approved by the Food and Drug Administration. Result Comment: Norm al (<60 Droplets/HPF) Performed By: #### L 7000.0700, M100.0605, L7000.0300, M100.7900, L7000.0750, M7400.3302, M600.5000, M100.637 #### [facility] [address] [place], [place], [address] ([phone] FATS, TOTAL Normal Normal . [facility] Comment on above: Order Comment: Test( s) 052753-Uele, Neutral; 203481-Vpye, Total was developed and its performance characteristics determined by [facility]. It has not been cleared or approved by the Food and Drug Administration. Result Comment: Norm al (<100 Droplets/HPF) Performed By: #### L 7000.0700, M100.0605, L7000.0300, M100.7900, L7000.0750, M7400.3302, M600.5000, M100.637 #### [facility] [address] [place], [place], [address] [phone] M7400.3302on 07-19-2024 M7400.3302 ___ TESTING PERFORMED AT [facility]. ORIGINAL REPORT ON FILE IN LAB CONTAINS ADDITIONAL TEST SITE INFORMATION. ___ Giardia Lamblia EIA NEGATIVE Normal [facility] Comment on above: Performed By: #### L 7000.0700, M100.0605, L7000.0300, M100.7900, L7000.0750, M7400.3302, M600.5000, M100.637 #### [facility] [address] [place], [address] Ova and Parasites 8623on OP OVA AND PARASITES EX AM, ROUTINE These results were obtained using wet preparation(s) and trichrome stained smear. This test does not include testing for Crytosporidium parvum, Cyclospora, or Microsporidia. O+P Spec Micro One negative specimen does not rule out the possibility of a parasitic infection. ___ TESTING PERFORMED AT [facility]. ORIGINAL REPORT ON FILE IN LAB CONTAINS ADDITIONAL TEST SITE INFORMATION. ___ Ova/Parasite Exam NO OVA, CYSTS, OR PARASITES FOUND. Normal [facility] Comment on above: Performed By: #### L 7000.0700, M100.0605, L7000.0300, M100.7900, L7000.0750, M7400.3302, M600.5000, M100.637 #### [facility] [address] [place], [address] Bedside Glucoseon 07-16-2024 FINGERSTICK GLU 97 mg/dL Normal 74-106 [facility] Comment on above: Result Comment: CORIE ROMERO OF PATIENT CARE PER NURSING PROTOCOL Performed By: #### L 501.080 ####[facility] [id number] [place], [place], [address] EGD Reporton 07-16-2024 EGD Report [facility] Medical Records Department [address] [place] [address] EGD Report MR#: [id number] Acct: [id number] Name: QI PHILIPPE Rep #: [id number] : 1965 59 From: Gumaro Sandhu DO PCP: Dr. Bret Gomez MD Status:[facility] Patient Name: Qi Philippe Procedure Date: 07/16/2024 1:04 PM Date of : 1965 Age: 59 Procedure: Upper GI endoscopy Indications: Epigastric abdominal pain, Heartburn, Failure to respond to medical treatment Providers: Gumaro Sandhu DO Referring MD: Gumaro Sandhu DO Medicines: Monitored Anesthesia Care Patient Profile: This is a 59 year old female. Refer to note in patient chart for documentation of history and physical. Patient has symptoms of chronic epigastric abdominal pain, chronic dyspepsia, chronic heartburn and chronic nausea. Complications: No immediate complications. Procedure: Pre-Anesthesia Assessment: - Prior to the procedure, a History and Physical was performed, and patient medications and allergies were reviewed. The patient is competent. The risks and benefits of the procedure and the sedation options and risks were discussed with the patient. All questions were answered and informed consent was obtained. Patient identification and proposed procedure were verified by the physician in the pre-procedure area. Mental Status Examination: alert and oriented. Airway Examination: normal oropharyngeal airway and neck mobility. Respiratory Examination: clear to auscultation. CV Examination: normal. Prophylactic Antibiotics: The patient does not require prophylactic antibiotics. Prior Anticoagulants: The patient has taken no anticoagulant or antiplatelet agents. ASA Grade Assessment: II - A patient with mild systemic disease. After reviewing the risks and benefits, the patient was deemed in satisfactory condition to undergo the procedure. The anesthesia plan was to use monitored anesthesia care (MAC). Immediately prior to administration of medications, the patient was re-assessed for adequacy to receive sedatives. The heart rate, respiratory rate, oxygen saturations, blood pressure, adequacy of pulmonary ventilation, and response to care were monitored throughout the procedure. The physical status of the patient was re-assessed after the procedure. After obtaining informed consent, the endoscope was passed under direct vision. Throughout the procedure, the patient's blood pressure, pulse, and oxygen saturations were monitored continuously. The Endoscope was introduced through the mouth, and advanced to the second part of duodenum. The upper GI endoscopy was accomplished without difficulty. The patient tolerated the procedure well. Scope In: 1:17:47 PM Scope Out: 1:22:12 PM Total Procedure Duration Time 0 hours 4 minutes 25 seconds Findings: There were esophageal mucosal changes suggestive of short-segment King's esophagus present in the lower third of the esophagus. The maximum longitudinal extent of these mucosal changes was 2 cm in length. Mucosa was biopsied with a cold forceps for histology at intervals of 1 cm in the lower third of the esophagus. One specimen bottle was sent to pathology. Verification of patient identification for the specimen was done. Estimated blood loss was minimal. Diffuse prominent gastric folds were found in the cardia, in the gastric body, on the greater curvature of the stomach and in the gastric antrum. Biopsies were taken with a cold forceps for histology. Verification of patient identification for the specimen was done. Estimated blood loss was minimal. No gross lesions were noted in the second portion of the duodenum. Impression: - Esophageal mucosal changes suggestive of short-segment King's esophagus. Biopsied. - Enlarged gastric folds. Biopsied. - No gross lesions in the second portion of the duodenum. Recommendation: - Discharge patient to home. - Resume previous diet. - Continue present medications. - Await pathology results. Procedure Code(s): --- Professional --- 47030, Esophagogastroduodenoscopy, flexible, transoral; with biopsy, single or multiple CPT copyright 2021 [employer]. All rights reserved. The codes documented in this report are preliminary and upon golf ball inspector review may be revised to meet current compliance requirements. Gumaro Sandhu DO 07/16/2024 1:28:24 PM This report has been signed electronically. Number of Addenda: 0 Note Initiated On: 07/16/2024 1:04 PM 07/16/24 1328 Date Gumaro Storey Signature: Date (if indicated) CC: Dr. Bret Gomez MD; Gumaro Sandhu DO Date Dictated: 07/16/24 1304 Date Transcribed: Launch Leader: LINO Signed Normal [facility] H Pylori (initial)on 024 H Pylori (initial) ------- Patient Age/Sex Location Account Attending Physician QI PHILIPPE 59/F EN [id number] Gumaro Sandhu DO Specimen: [id number] Received: 07/19/24 Status: RICKIEEse Young Num: [id number] Spec Type: IMMUNO Subm Dr: Gumaro Sandhu DO PHYSICIAN INSTITUTION [place] [address] SPECIMEN INFORMATION: Tissue Source: A- Antrum biopsy Clinical Info: Hypergastrinemia, gastric ulcer, diverticula colon, GERD Specimen Number: [id number] CPT code: 11085 METHODOLOGY: Deparaffinized sections of prefer/formalin-fixed tissue or PAP/DQ stained slides are incubated with monoclonal/polyclonal antibodies/oligonucleotide probes. Localization is made via biotin free immunoperoxidase method. Appropriate controls are performed and reacted as expected. Results on target cell population are indicated in the following table: RESULTS: ANTIBODY / CLONE RESULT Block A H Pylori (polyclonal) negative These tests were developed and their performance characteristics determined by [facility]. They may not have been cleared or approved by the U.S. Food and Drug Administration. The FDA has determined that such clearance or approval is not necessary. The above immunohistochemical/dualISH markers are ordered and reviewed by the Pathologist. INTERPRETATION: A. Antrum, biopsy: Negative for Helicobacter pylori organisms. SJ/mr 07/20/2024 Signed (signature on file) Dr. Roque Tello MD 07/20/24 1212 Normal [facility] Comment on above: Performed By: #### P H.PYLORI ####[facility] [id number] [facility] [place], [address] MR/POSTOP.Antonia 07-16-2024 MR/POSTOP.[facility] Medical Records Department [address] [place] [address] Anesthesia Postop Eval I 07/16/24 1333 MR#: [id number] Acct: [id number] Name: QI PHILIPPE Amparo Rep #: [id number] : 1965 59 From: Pieter Scruggs PCP: Dr. Bret Gomez MD Status[place] [facility] [place] Race: C Location: [place] [address] Anesthesia: Postop Eval I Current Vital Signs Temperature: 98.5 F Pulse Rate: 62 Blood Pressure: 96/60 Respiratory Rate: 16 Pulse Ox: 98 Oxygen Delivery Method: Room Air Assessment Airway patent: Yes Spontaneous unlabored respirations: Yes Mental status: Awake and Calm nausea: No Vomiting: No Anesthesia Complication: No Fluid Hydration Crystalloid volume administer (ml): 400 Total IV fluid infused: 400 Progress Note Anesthesia document: Postop Eval 1 completed: Yes 07/16/24 1335 Date Pieter Reedclydetorsten Signature: Date CC: Signed Normal [facility] [id number] 07-16-2024 MR/POSTOPAN2 [facility] Medical Records Department [address] [place] [address] Anesthesia Postop Eval II 07/16/24 1347 MR#: [id number] Acct: [id number] Name: QI PHILIPPE Rep #: [id number] : 1965 59 From: Olvin Biggs MD PCP: Dr. Bret Gomez MD Status:REG [facility] [place] Race: C Location: [place] [address] Anesthesia Postop Eval I Sum Postop Eval Completion status Anesthesia document: Postop Eval 1 completed: Yes Anesthesia Postop Eval I Summary Anesthesia Postop Eval I Summary: Anesthesia Postop Eval I: Assessment Summary Airway patent Yes 07/16/24 13:35 [email or web address] Spontaneous unlabored Yes 07/16/24 13:35 [email or web address] respirations Mental status Awake,Calm 07/16/24 13:35 [email or web address] nausea No 07/16/24 13:35 [email or web address] Vomiting No 07/16/24 13:35 [email or web address] Anesthesia Postop Eval I: Fluid Summary Crystalloid volume administer 400 07/16/24 13:35 [email or web address] (ml) Colloids volume administered ( ml) Blood Product volume administered (ml) Total IV fluid infused 400 07/16/24 13:35 [email or web address] Anesthesia Postop Eval I: Summary Notes Anesthesia Complication No 07/16/24 13:35 [email or web address] Anesthesia Complication Comment: Post-operative progress note Anesthesia: Postop Eval II Evaluation Mental status: Awake Pain Level: 0 nausea: No Vomiting: No 07/16/24 9587 Date Olvin Mendez Signature: Date CC: Signed Normal [facility] Special Stain Group Ion 06-25 Special Stain Group I --------- Patient Age/Sex Location Account Attending Physician QI PHILIPPE 59/F EN [id number] Gumaro Sandhu DO Specimen: [id number] Received: 07/16/24 Status: LAKISHA Young Num: [id number] Spec Type: EGD BIOPSY Subm Dr: Gumaro Sandhu, HEADER OPERATION: EGD with biopsies PRE-OP DIAGNOSIS: Hypergastrinemia, gastric ulcer, diverticula colon, GERD TISSUE SUBMITTED: A- Antrum biopsy, B- Distal esophagus biopsy MICROSCOPIC DIAGNOSIS A. Antrum biopsy: Mild gastritis. See microscopic description and comment. B. Distal esophagus, biopsy: Fragments of gastroesophageal mucosa with chronic inflammation. Intestinal metaplasia (goblet cell metaplasia) not identified. See comment. . 07/20/2024 COMMENT A. The results of immunohistochemistry for Helicobacter pylori will be reported separately ([id number]). B. Alcian blue/PAS stain with matched control is used in the evaluation of the specimen. MICROSCOPIC DESCRIPTION Slides are reviewed. A. The specimen shows fragments of gastric mucosa with chronic inflammatory cell infiltrates in the lamina propria consisting of lymphocytes and plasma cells, consistent with mild chronic gastritis. GROSS DESCRIPTION A. Received in fixative is one container labeled with the patient's name and designated Antrum biopsy. The specimen consists of two irregular fragments of light le soft tissue that in aggregate measure 0.8 x 0.4 x 0.1 cm. The specimen is totally submitted in one cassette. B. Received in fixative is one container labeled with the patient's name and designated Distal esophagus biopsy. The specimen consists of multiple irregular fragments of light le soft tissue that in aggregate measure 0.8 x 0.5 x 0.1 cm. The specimen is totally submitted in one cassette. Alicia 07/19/2024 TC:3 CPT:01932i7,16824 Patient Age/Sex Location Account Attending Physician QI PHILIPPE 59/F EN [id number] Gumaro Sandhu, DO Signed (signature on file) Dr. Roque Tello MD 07/20/24 1122 Normal [facility] Comment on above: Performed By: #### P SSI ####[facility] [id number] [place], [place], [address] L7000.0750on 07-12-2024 P ELASTASE,FECA > 800 Normal >200 [facility] Comment on above: Result Comment: Resu lt Units: ug Elast./g Severe Pancreatic Insufficiency: <100 Moderate Pancreatic Insufficiency: 100 - 200 Normal: >200 Performed at: [address] [id number] Master Of Ceremonies: Jr Gustafson MD, Phone: [phone] Performed By: #### L 7000.0700, M100.0605, L7000.0300, M100.7900, L7000.0750, M7400.3302, M600.5000, M100.637 #### [facility] [facility] [address] [place], [address] ENTERIC PATHOGEN PANEL STOOL on 07-08-2024 EP PANEL Normal Reference Ran ge = Not Detected GI pathogens Pnl Stl ESPERANZA+probe Nucleic acid amplification test method GI pathogens Pnl Stl ESPERANZA+probe Not detected for Campylobacter group, Salmonella species, Shigella species, Vibrio Group, Yersinia enterocolitica, EHEC (Shiga Toxin 1, Shiga Toxin 2), Norovirus Gl/Gll, and Rotavirus A. Other common stool pathogens are not detected on this panel include: Aeromonas/Plesiomonas or parasites. Order testing for these organisms separately if suspected. This is an amplified DNA test which makes it both specific and sensitive. CAMPYLOBACTER Not Detected Norovirus Not Detected Rotavirus Not Detected Salmonella Not Detected Shiga Toxin Not Detected Shigella sp. Not Detected VIBRIO Not Detected Yersinia Not Detected Normal [facility] Comment on above: Performed By: #### L 7000.0700, M100.0605, L7000.0300, M100.7900, L7000.0750, M7400.3302, M600.5000, M100.637 #### [facility] [address] [place], [address] Stool Lactoferrin/WBCon 06-24 WBCST Normal Reference Ran ge = Negative Fecal WBC Lactoferrin A Positive: Fecal WBC Lactoferrin present A Normal [facility] Comment on above: Performed By: #### L 7000.0700, M100.0605, L7000.0300, M100.7900, L7000.0750, M7400.3302, M600.5000, M100.637 #### [facility] [address] [place], [place], [id number] Stool Occult Blood iFOBon STOB Positive Normal [facility] Comment on above: Performed By: #### L 7000.0700, M100.0605, L7000.0300, M100.7900, L7000.0750, M7400.3302, M600.5000, M100.637 #### [facility] [address] [place], [address] Absolute lymphocyte countOrd ered By: Too Bingham on 03-16-2024 Lymphocytes Auto (Unsp spec) [#/Vol] 1.92 10*3/uL 0.83-4.51 [facility] Automated lymphocyte count a s percentage of total leukocytesOrdered By: Too Bingham on 03-16-2024 Lymphocytes/100 WBC Auto (Unsp spec) 31.1 % 19-41 [facility] Basophil percentageOrdered B y: Too Bingham on 03-16-2024 Basophils/100 WBC (Bld) 0.3 % 0-1 [facility] Chloride [Moles/Vol] 102 mmol/L 98-107 [facility] Eosinophils/100 WBC (Bld) 0.6 % 0-5 [facility] Glucose [Mass/Vol] 110 mg/dL 74-106 [facility] Comment on above: Fasting Glucose resu lt from 100 to 125 mg/dL suggests IMPAIRED HOMEOSTASIS per A.D.A. criteria. Hemoglobin (Bld) [Mass/Vol] 14.0 g/dL 12.0-15.0 [facility] Monocytes/100 WBC (Bld) 6.5 % 0-10 [facility] Neutrophils (Bld) [#/Vol] 3.8 10*3/uL 2.0-7.7 [facility] Neutrophils/100 WBC (Bld) 61.3 % 47-70 [facility] Potassium [Moles/Vol] 3.6 mmol/L 3.5-5.1 [facility] Sodium [Moles/Vol] 136 mmol/L 136-145 [facility] WBC (Bld) [#/Vol] 6.2 10*3/uL 4.4-11.0 [facility] Determination of erythrocyte mean corpuscular volume (MCV)Ordered By: Too Bingham on 03-16-2024 MCV (RBC) [Entitic vol] 86.6 fL 81-99 [facility] Erythrocyte distribution wid th ratioOrdered By: Too Bingham on 03-16-2024 Erythrocyte distribution width (RBC) [Ratio] 11.9 % 11.6-14.6 [facility] Erythrocyte distribution wid th standard deviationOrdered By: Too Bingham on 03-16-2024 Erythrocyte distribution width (RBC) [Entitic vol] 37.8 fL 35.1-43.9 [facility] Hematocrit Auto (Bld) [Volum e fraction]Ordered By: Too Bingham on 03-16-2024 Hematocrit (Bld) [Volume fraction] 42.1 % 37-47 [facility] Immature granulocytes/100 WB C Auto (Bld)Ordered By: Too Bingham on 03-16-2024 Immature granulocytes/100 WBC (Bld) 0.200 % 0.0-0.9 [facility] Comment on above: IG% - Immature Granu locytes (promyelocytes, myelocytes and metamyelocytes) > 1% indicates that a LEFT SHIFT is Present. Laboratory - Chemistry and C hemistry - challengeOrdered By: Too Bingham on 03-16-2024 CO2 [Moles/Vol] 29.0 mmol/L 21.0-32.0 [facility] Urea nitrogen/Creatinine [Mass ratio] 22.4 mg/mg 10-20 [facility] - Hematology and Cell countsOrdered By: Too Bingham on 03-16-2024 MCH (RBC) [Entitic mass] 28.8 pg 27.0-32.0 [facility] MCHC (RBC) [Mass/Vol] 33.3 g/dL 32-36 [facility] Nucleated RBC/100 WBC (Bld) [Ratio] 0 % 0-5 [facility] Platelet mean volume (Bld) [Entitic vol] 10.4 fL 6.2-12.0 [facility] Platelets (Bld) [#/Vol] 346 10*3/uL 150-450 [facility] No Panel InformationOrdered By: Too Bingham on 03-16-2024 Estimated GFR (MDRD) Amer 107 mL/min >60 [facility] Comment on above: GFR Calc Estimated GFR (MDRD) Non-Af Amer 88 mL/min >60 [facility] Comment on above: Non- GFR Calc RBC Auto (Bld) [#/Vol]Ordere d By: Too Bingham on 03-16-2024 RBC (Bld) [#/Vol] 4.86 10*6/uL 4.2-5.4 [facility] Serum or plasma calcium kassandra urement (mass/volume)Ordered By: Too Bingham on 03-16-2024 Calcium [Mass/Vol] 9.4 mg/dL 8.5-10.1 [facility] Serum or plasma creatinine m easurement (mass/volume)Ordered By: Too Bingham on 03-16-2024 Creatinine [Mass/Vol] 0.72 mg/dL 0.55-1.02 [facility] Comment on above: The validity of the calculated GFR & GFRAA in patients over 70 years has not been determined. Clinical correlation is essential. Serum or plasma urea nitroge n measurement (mass/volume)Ordered By: Too Bingham on 03-16-2024 Urea nitrogen [Mass/Vol] 16 mg/dL 7-18 [facility] Thin prep Papanicolaou smear with manual screeningOrdered By: Too Bingham on 03-16-2024 Thin prep Papanicolaou smear with manual screening 5 5-15 [facility] Whole blood hemoglobin A1c/t otal hemoglobin ratio (mass fraction)Ordered By: Too Bingham on 03-16-2024 HbA1c (Bld) [Mass fraction] 6.0 % 3.8-5.6 [facility] Comment on above: Normal < 5.7 % Predi abetic 5.7 - 6.4 % Diabetic >or= 6.5 % Please note range changes. Glucose Glucometer (BldC) [M ass/Vol]Ordered By: Gumaro Sandhu on 10-29-2023 Glucose [Mass/Vol] 115 mg/dL 74-106 [facility] Comment on above: MANAGEMENT OF PATIEN T CARE PER NURSING PROTOCOL Basophil percentageOrdered B y: Bret Gomez on 09-30-2023 Bilirubin [Mass/Vol] 0.40 mg/dL 0.20-1.00 [facility] Comment on above: For patients on eltr ombopag therapy, use of Dimension [place] TBIL is not recommended. Chloride [Moles/Vol] 107 mmol/L 98-107 [facility] Cholesterol [Mass/Vol] 203 mg/dL <200 [facility] Comment on above: <200 mg/dL Desirable 200-240 mg/dL Borderline >240 mg/dL High Risk Glucose [Mass/Vol] 126 mg/dL 74-106 [facility] Comment on above: Fasting Glucose resu lt greater than or equal to 126 mg/dL suggests DIABETES MELLITUS per A.D.A. criteria. Potassium [Moles/Vol] 3.8 mmol/L 3.5-5.1 [facility] Protein [Mass/Vol] 7.2 g/dL 6.4-8.2 [facility] Sodium [Moles/Vol] 139 mmol/L 136-145 [facility] Triglyceride [Mass/Vol] 143 mg/dL <199 [facility] Comment on above: The drugs N-Acetylcy steine and Metamizole may falsely depress this assay.Serum Triglycerides Reference Interval Normal <150 mg/dL Borderline high 150 - 199 mg/dL High 200 - 499 mg/dL Very High > or = 500 mg/dL Laboratory - Chemistry and C hemistry - challengeOrdered By: Bret Gomez on 09-30-2023 ALP [Catalytic activity/Vol] 65 U/L 45-117 [facility] ALT [Catalytic activity/Vol] 33 U/L 13-56 [facility] CO2 [Moles/Vol] 25.0 mmol/L 21.0-32.0 [facility] Globulin (S) [Mass/Vol] 3.4 g/dL 2.2-4.2 [facility] Urea nitrogen/Creatinine [Mass ratio] 28.2 mg/mg 10-20 [facility] No Panel InformationOrdered By: Bret Gomez on 09-30-2023 Urine Microalbumin/Creatinin e Ratio 5.1 mg/g CRE <30 [facility] Estimated GFR (MDRD) Amer 115 mL/min >60 [facility] Comment on above: GFR Calc Estimated GFR (MDRD) Non-Af Amer 95 mL/min >60 [facility] Comment on above: Non- GFR Calc Serum or plasma albumin kassandra urement (mass/volume)Ordered By: Bret Gomez on 09-30-2023 Albumin [Mass/Vol] 3.8 g/dL 3.2-5.0 [facility] Serum or plasma albumin/glob ulin mass ratioOrdered By: Bret Gomez on 09-30-2023 Albumin/Globulin [Mass ratio] 1.1 {ratio} 0.9-2.4 [facility] Serum or plasma calcium kassandra urement (mass/volume)Ordered By: Bret Gomez on 09-30-2023 Calcium [Mass/Vol] 9.0 mg/dL 8.5-10.1 [facility] Serum or plasma cholesterol in HDL measurement (mass/volume)Ordered By: Bret Gomez on 09-30-2023 Cholesterol in HDL [Mass/Vol] 46 mg/dL >40 [facility] Comment on above: The drugs N-Acetylcy steine and Metamizole may falsely depress this assay. Reference Range HDL <40 mg/dL Low HDL Cholesterol HDL >or= 60 mg/dL High HDL Cholesterol Serum or plasma cholesterol in VLDL measurement (mass/volume)Ordered By: Bret Gomez on 09-30-2023 Cholesterol in VLDL [Mass/Vol] 29 mg/dL 5-40 [facility] Serum or plasma creatinine m easurement (mass/volume)Ordered By: Bret Gomez on 09-30-2023 Creatinine [Mass/Vol] 0.67 mg/dL 0.55-1.02 [facility] Comment on above: The validity of the calculated GFR & GFRAA in patients over 70 years has not been determined. Clinical correlation is essential. Serum or plasma low density lipoprotein (LDL) cholesterol measurement (mass/volume)Ordered By: Bret Gomez on 09-30-2023 Cholesterol in LDL [Mass/Vol] 128 mg/dL 0-130 [facility] Serum or plasma urea nitroge n measurement (mass/volume)Ordered By: Bret Gomez on 09-30-2023 Urea nitrogen [Mass/Vol] 19 mg/dL 7-18 [facility] Thin prep Papanicolaou smear with manual screeningOrdered By: Bret Gomez on 09-30-2023 Thin prep Papanicolaou smear with manual screening 13.6 mg/L NO RANGE EST. [facility] Thin prep Papanicolaou smear with manual screening 19 U/L 15-37 [facility] Thin prep Papanicolaou smear with manual screening 7 5-15 [facility] Urine creatinine measurement (mass/volume)Ordered By: Bret Gomez on 09-30-2023 Creatinine (U) [Mass/Vol] 266.00 mg/dL NO RANGE EST. [facility] Whole blood hemoglobin A1c/t otal hemoglobin ratio (mass fraction)Ordered By: Bret Gomez on 09-30-2023 HbA1c (Bld) [Mass fraction] 6.1 % 3.8-5.6 [facility] Comment on above: Normal < 5.7 % Predi abetic 5.7 - 6.4 % Diabetic >or= 6.5 % Please note range changes. No Panel InformationOrdered By: Gumaro Sandhu on 09-01-2023 Miscellaneous Test See comment [facility] Comment on above: TEST RESULT LIMITSCh romogranin A, 584.9 High ng/mL 0.0-101.8 Chromogranin A performed by [employer] methodology Values obtained with different assay methods or kits cannot be used interchangeably. TESTING PERFORMED AT [facility]. ORIGINAL REPORT ON FILE IN LAB CONTAINS ADDITIONAL TEST SITE INFORMATION. Serum or plasma gastrin kassandra urement (mass/volume)Ordered By: Gumaro Sandhu on 09-01-2023 Gastrin [Mass/Vol] 329 pg/mL 0-115 [facility] Comment on above: Siemens Immulite 200 0 Immunochemiluminometric assay (ICMA)Values obtained with different assay methods or kits cannotbe used interchangeably. Results cannot be interpreted asabsolute evidence of the presence or absence of malignantdisease.Performed at: [address] [id number] Director: Jr Gustafson MD, Phone: [phone] Absolute lymphocyte countOrd ered By: Dr. Gomez on 03-19-2023 Lymphocytes Auto (Unsp spec) [#/Vol] 1.98 10*3/uL 0.83-4.51 [facility] Basophil percentageOrdered B y: Dr. Gomez on 03-19-2023 Basophils/100 WBC (Bld) 0.5 % 0-1 [facility] Bilirubin [Mass/Vol] 0.40 mg/dL 0.20-1.00 [facility] Comment on above: For patients on eltr ombopag therapy, use of Dimension [place] TBIL is not recommended. Chloride [Moles/Vol] 107 mmol/L 98-107 [facility] Cholesterol [Mass/Vol] 188 mg/dL <200 [facility] Comment on above: <200 mg/dL Desirable 200-240 mg/dL Borderline >240 mg/dL High Risk Eosinophils/100 WBC (Bld) 2.9 % 0-5 [facility] Glucose [Mass/Vol] 108 mg/dL 74-106 [facility] Comment on above: Fasting Glucose resu lt from 100 to 125 mg/dL suggests IMPAIRED HOMEOSTASIS per A.D.A. criteria. Neutrophils (Bld) [#/Vol] 3.3 10*3/uL 2.0-7.7 [facility] Neutrophils/100 WBC (Bld) 55.4 % 47-70 [facility] Potassium [Moles/Vol] 4.0 mmol/L 3.5-5.1 [facility] Protein [Mass/Vol] 7.3 g/dL 6.4-8.2 [facility] Sodium [Moles/Vol] 135 mmol/L 136-145 [facility] Triglyceride [Mass/Vol] 147 mg/dL <199 [facility] Comment on above: The drugs N-Acetylcy steine and Metamizole may falsely depress this assay.Serum Triglycerides Reference Interval Normal <150 mg/dL Borderline high 150 - 199 mg/dL High 200 - 499 mg/dL Very High > or = 500 mg/dL WBC (Bld) [#/Vol] 5.9 10*3/uL 4.4-11.0 [facility] Blood erythrocytes count (nu mber/volume)Ordered By: Dr. Gomez on 03-19-2023 RBC (Bld) [#/Vol] 4.82 10*6/uL 4.2-5.4 [facility] Blood hemoglobin measurement (mass/volume)Ordered By: Dr. Gomez on 03-19-2023 Hemoglobin (Bld) [Mass/Vol] 13.8 g/dL 12.0-15.0 [facility] Blood lymphocytes/100 leukoc ytesOrdered By: Dr. Gomez on 03-19-2023 Lymphocytes/100 WBC (Bld) 33.8 % 19-41 [facility] Blood monocytes/100 leukocyt esOrdered By: Dr. Gomez on 03-19-2023 Monocytes/100 WBC (Bld) 7.2 % 0-10 [facility] Blood platelet mean volumeOr dered By: Dr. Gomez on 03-19-2023 Platelet mean volume (Bld) [Entitic vol] 10.6 fL 6.2-12.0 [facility] Determination of erythrocyte mean corpuscular volume (MCV)Ordered By: Dr. Gomez on 03-19-2023 MCV (RBC) [Entitic vol] 89.8 fL 81-99 [facility] Hematocrit Auto (Bld) [Volum e fraction]Ordered By: Dr. Gomez on 03-19-2023 Hematocrit (Bld) [Volume fraction] 43.3 % 37-47 [facility] - Chemistry and C hemistry - challengeOrdered By: Dr. Gomez on 03-19-2023 ALP [Catalytic activity/Vol] 62 U/L 45-117 [facility] ALT [Catalytic activity/Vol] 52 U/L 13-56 [facility] CO2 [Moles/Vol] 24.0 mmol/L 21.0-32.0 [facility] Globulin (S) [Mass/Vol] 3.3 g/dL 2.2-4.2 [facility] Urea nitrogen/Creatinine [Mass ratio] 23.4 mg/mg 10-20 [facility] - Hematology and Cell countsOrdered By: Dr. Gomez on 03-19-2023 Erythrocyte distribution width (RBC) [Entitic vol] 38.9 fL 35.1-43.9 [facility] Erythrocyte distribution width (RBC) [Ratio] 11.9 % 11.6-14.6 [facility] Immature granulocytes/100 WBC (Bld) 0.200 % 0.0-0.9 [facility] Comment on above: IG% - Immature Granu locytes (promyelocytes, myelocytes and metamyelocytes) > 1% indicates that a LEFT SHIFT is Present. MCH (RBC) [Entitic mass] 28.6 pg 27.0-32.0 [facility] Nucleated RBC/100 WBC (Bld) [Ratio] 0 % 0-5 [facility] MCHC Auto (RBC) [Mass/Vol]Or dered By: Dr. Gomez on 03-19-2023 MCHC (RBC) [Mass/Vol] 31.9 g/dL 32-36 [facility] No Panel InformationOrdered By: Dr. Gomez on 03-19-2023 Estimated GFR (MDRD) Amer 105 mL/min >60 [facility] Comment on above: GFR Calc Estimated GFR (MDRD) Non-Af Amer 87 mL/min >60 [facility] Comment on above: Non- GFR Calc Urine Microalbumin/Creatinin e Ratio 5.6 mg/g CRE <30 [facility] Platelets bldOrdered By: Dr. Gomez on 03-19-2023 Platelets (Bld) [#/Vol] 282 10*3/uL 150-450 [facility] Serum or plasma albumin kassandra urement (mass/volume)Ordered By: Dr. Gomez on 03-19-2023 Albumin [Mass/Vol] 4.0 g/dL 3.2-5.0 [facility] Serum or plasma albumin/glob ulin mass ratioOrdered By: Dr. Gomez on 03-19-2023 Albumin/Globulin [Mass ratio] 1.2 {ratio} 0.9-2.4 [facility] Serum or plasma calcium kassandra urement (mass/volume)Ordered By: Dr. Gomez on 03-19-2023 Calcium [Mass/Vol] 9.1 mg/dL 8.5-10.1 [facility] Serum or plasma cholesterol in HDL measurement (mass/volume)Ordered By: Dr. Gomez on 03-19-2023 Cholesterol in HDL [Mass/Vol] 49 mg/dL >40 [facility] Comment on above: The drugs N-Acetylcy steine and Metamizole may falsely depress this assay. Reference Range HDL <40 mg/dL Low HDL Cholesterol HDL >or= 60 mg/dL High HDL Cholesterol Serum or plasma cholesterol in VLDL measurement (mass/volume)Ordered By: Dr. Gomez on 03-19-2023 Cholesterol in VLDL [Mass/Vol] 29 mg/dL 5-40 [facility] Serum or plasma creatinine m easurement (mass/volume)Ordered By: Dr. Gomez on 03-19-2023 Creatinine [Mass/Vol] 0.73 mg/dL 0.55-1.02 [facility] Comment on above: The validity of the calculated GFR & GFRAA in patients over 70 years has not been determined. Clinical correlation is essential. Serum or plasma low density lipoprotein (LDL) cholesterol measurement (mass/volume)Ordered By: Dr. Gomez on 03-19-2023 Cholesterol in LDL [Mass/Vol] 110 mg/dL 0-130 [facility] Serum or plasma urea nitroge n measurement (mass/volume)Ordered By: Dr. Gomez on 03-19-2023 Urea nitrogen [Mass/Vol] 17 mg/dL 7-18 [facility] Thin prep Papanicolaou smear with manual screeningOrdered By: Dr. Gomez on 03-19-2023 Thin prep Papanicolaou smear with manual screening 31 U/L 15-37 [facility] Thin prep Papanicolaou smear with manual screening 4 5-15 [facility] Thin prep Papanicolaou smear with manual screening 5.9 mg/L NO RANGE EST. [facility] Urine creatinine measurement (mass/volume)Ordered By: Dr. Gomez on 03-19-2023 Creatinine (U) [Mass/Vol] 106.00 mg/dL NO RANGE EST. [facility] Basophil percentageon 2021 Bilirubin [Mass/Vol] 0.80 mg/dL 0.20-1.00 [facility] Work Phone: Comment on above: For patients on eltr ombopag therapy, use of Dim[place] TBIL is not recommended. Chloride [Moles/Vol] 103 mmol/L 98-107 [facility] Work Phone: Cholesterol [Mass/Vol] 240 mg/dL <200 [facility] Work Phone: Comment on above: <200 mg/dL Desirable 200-240 mg/dL Borderline >240 mg/dL High Risk Glucose [Mass/Vol] 104 mg/dL 74-106 [facility] Work Phone: Comment on above: Fasting Glucose resu lt from 100 to 125 mg/dL suggests IMPAIRED HOMEOSTASIS per A.D.A. criteria. Potassium [Moles/Vol] 3.4 mmol/L 3.5-5.1 [facility] Work Phone: Protein [Mass/Vol] 8.2 g/dL 6.4-8.2 [facility] Work Phone: Sodium [Moles/Vol] 137 mmol/L 136-145 [facility] Work Phone: Triglyceride [Mass/Vol] 171 mg/dL <199 [facility] Work Phone: Comment on above: The drugs N-Acetylcy steine and Metamizole may falsely depress this assay.Serum Triglycerides Reference Interval Normal <150 mg/dL Borderline high 150 - 199 mg/dL High 200 - 499 mg/dL Very High > or = 500 mg/dL Laboratory - Chemistry and C hemistry - challengeon 09-20-2022 ALP [Catalytic activity/Vol] 82 U/L 45-117 [facility] Work Phone: ALT [Catalytic activity/Vol] 53 U/L 13-56 [facility] Work Phone: CO2 [Moles/Vol] 25.0 mmol/L 21.0-32.0 [facility] Work Phone: Globulin (S) [Mass/Vol] 3.7 g/dL 2.2-4.2 [facility] Work Phone: Urea nitrogen/Creatinine [Mass ratio] 22.3 mg/mg 10-20 [facility] Work Phone: No Panel Informationon 09-20 Estimated GFR (MDRD) Amer 107 mL/min >60 [facility] Work Phone: Comment on above: GFR Calc Estimated GFR (MDRD) Non-Af Amer 88 mL/min >60 [facility] Work Phone: Comment on above: Non- GFR Calc Serum or plasma albumin kassandra urement (mass/volume)on 09-20-2022 Albumin [Mass/Vol] 4.5 g/dL 3.2-5.0 [facility] Work Phone: Serum or plasma albumin/glob ulin mass ratioon 09-20-2022 Albumin/Globulin [Mass ratio] 1.2 {ratio} 0.9-2.4 [facility] Work Phone: Serum or plasma calcium kassandra urement (mass/volume)on 09-20-2022 Calcium [Mass/Vol] 9.7 mg/dL 8.5-10.1 [facility] Work Phone: Serum or plasma cholesterol in HDL measurement (mass/volume)on 09-20-2022 Cholesterol in HDL [Mass/Vol] 53 mg/dL >40 [facility] Work Phone: Comment on above: The drugs N-Acetylcy steine and Metamizole may falsely depress this assay. Reference Range HDL <40 mg/dL Low HDL Cholesterol HDL >or= 60 mg/dL High HDL Cholesterol Serum or plasma cholesterol in VLDL measurement (mass/volume)on 09-20-2022 Cholesterol in VLDL [Mass/Vol] 34 mg/dL 5-40 [facility] Work Phone: Serum or plasma creatinine m easurement (mass/volume)on 09-20-2022 Creatinine [Mass/Vol] 0.72 mg/dL 0.55-1.02 [facility] Work Phone: Comment on above: The validity of the calculated GFR & GFRAA in patients over 70 years has not been determined. Clinical correlation is essential. Serum or plasma low density lipoprotein (LDL) cholesterol measurement (mass/volume)on 09-20-2022 Cholesterol in LDL [Mass/Vol] 153 mg/dL 0-130 [facility] Work Phone: Serum or plasma urea nitroge n measurement (mass/volume)on 09-20-2022 Urea nitrogen [Mass/Vol] 16 mg/dL 7-18 [facility] Work Phone: Thin prep Papanicolaou smear with manual screeningon 09-20-2022 Thin prep Papanicolaou smear with manual screening 29 U/L 15-37 [facility] Work Phone: Thin prep Papanicolaou smear with manual screening 9 5-15 [facility] Work Phone: Whole blood hemoglobin A1c/t otal hemoglobin ratio (mass fraction)on 09-20-2022 HbA1c (Bld) [Mass fraction] 6.2 % 3.8-5.6 [facility] Work Phone: Comment on above: Normal < 5.7 % Predi abetic 5.7 - 6.4 % Diabetic >or= 6.5 % Please note range changes. Absolute lymphocyte counton 05-22-2022 Lymphocytes Auto (Unsp spec) [#/Vol] 1.64 10*3/uL 0.83-4.51 [facility] Work Phone: Basophil percentageon 2021 Basophils/100 WBC (Bld) 0.3 % 0-1 [facility] Work Phone: Bilirubin [Mass/Vol] 0.50 mg/dL 0.20-1.00 [facility] Work Phone: Comment on above: For patients on eltr ombopag therapy, use of Dimension [place] TBIL is not recommended. Chloride [Moles/Vol] 105 mmol/L 98-107 [facility] Work Phone: Eosinophils/100 WBC (Bld) 1.0 % 0-5 [facility] Work Phone: Glucose [Mass/Vol] 122 mg/dL 74-106 [facility] Work Phone: Comment on above: Fasting Glucose resu lt from 100 to 125 mg/dL suggests IMPAIRED HOMEOSTASIS per A.D.A. criteria. Neutrophils (Bld) [#/Vol] 4.2 10*3/uL 2.0-7.7 [facility] Work Phone: Neutrophils/100 WBC (Bld) 66.0 % 47-70 [facility] Work Phone: Potassium [Moles/Vol] 3.7 mmol/L 3.5-5.1 [facility] Work Phone: Protein [Mass/Vol] 7.7 g/dL 6.4-8.2 [facility] Work Phone: Sodium [Moles/Vol] 139 mmol/L 136-145 [facility] Work Phone: WBC (Bld) [#/Vol] 6.3 10*3/uL 4.4-11.0 [facility] Work Phone: Blood erythrocytes count (nu mber/volume)on 05-22-2022 RBC (Bld) [#/Vol] 4.94 10*6/uL 4.2-5.4 [facility] Work [facility]: Blood hemoglobin measurement (mass/volume)on 05-22-2022 Hemoglobin (Bld) [Mass/Vol] 14.3 g/dL 12.0-15.0 [facility] Work Phone: [phone] Blood lymphocytes/100 leukoc yteson 05-22-2022 Lymphocytes/100 WBC (Bld) 26.0 % 19-41 [facility] Work Phone: Blood monocytes/100 leukocyt eson 05-22-2022 Monocytes/100 WBC (Bld) 6.5 % 0-10 [facility] Work Phone: Blood platelet mean volumeon 05-22-2022 Platelet mean volume (Bld) [Entitic vol] 10.2 fL 6.2-12.0 [facility] Work Phone: Determination of erythrocyte mean corpuscular volume (MCV)on 05-22-2022 MCV (RBC) [Entitic vol] 87.9 fL 81-99 [facility] Work Phone: Hematocrit Auto (Bld) [Volum e fraction]on 05-22-2022 Hematocrit (Bld) [Volume fraction] 43.4 % 37-47 [facility] Work Phone: Laboratory - Chemistry and C hemistry - challengeon 05-22-2022 ALP [Catalytic activity/Vol] 79 U/L 45-117 [facility] Work Phone: ALT [Catalytic activity/Vol] 38 U/L 13-56 [facility] Work Phone: CO2 [Moles/Vol] 28.0 mmol/L 21.0-32.0 [facility] Work Phone: Globulin (S) [Mass/Vol] 3.4 g/dL 2.2-4.2 [facility] Work Phone: Urea nitrogen/Creatinine [Mass ratio] 19.6 mg/mg 10-20 [facility] Work Phone: Laboratory - Hematology and Cell countson 05-22-2022 Erythrocyte distribution width (RBC) [Entitic vol] 38.6 fL 35.1-43.9 [facility] Work Phone: Erythrocyte distribution width (RBC) [Ratio] 12.0 % 11.6-14.6 [facility] Work Phone: Immature granulocytes/100 WBC (Bld) 0.200 % 0.0-0.9 [facility] Work Phone: Comment on above: IG% - Immature Granu locytes (promyelocytes, myelocytes and metamyelocytes) > 1% indicates that a LEFT SHIFT is Present. MCH (RBC) [Entitic mass] 28.9 pg 27.0-32.0 [facility] Work Phone: Nucleated RBC/100 WBC (Bld) [Ratio] 0 % 0-5 [facility] Work Phone: MCHC Auto (RBC) [Mass/Vol]on 05-22-2022 MCHC (RBC) [Mass/Vol] 32.9 g/dL 32-36 [facility] Work [facility]: No Panel Informationon 05-22 Estimated GFR (MDRD) Amer 99 mL/min >60 [facility] Work Phone: Comment on above: GFR Calc Estimated GFR (MDRD) Non-Af Amer 82 mL/min >60 [facility] Work Phone: Comment on above: Non- GFR Calc Miscellaneous Test See [facility]: Comment on above: TEST RESULT LIMITSCh romogranin A, 459.2 High ng/mL 0.0-101.8Chromogranin A performed by [employer] KRThe [email or web address] methodologyValues obtained with different assay methods or kits cannot be used interchangeably. TESTING PERFORMED AT [facility]. ORIGINAL REPORT ON FILE IN LAB CONTAINS ADDITIONAL TEST SITE INFORMATION. Parathyroid Hormone (Intact) 41.8 pg/mL 18.4-80.1 [facility] Work Phone: Thyroid Stimulating Hormone (TSH) 0.87 uIU/mL 0.358-3.74 [facility] Work Phone: Platelets bldon 05-22-2022 Platelets (Bld) [#/Vol] 305 10*3/uL 150-450 [facility] Work Phone: Serum or plasma albumin kassandra urement (mass/volume)on 05-22-2022 Albumin [Mass/Vol] 4.3 g/dL 3.2-5.0 [facility] Work Phone: Serum or plasma albumin/glob ulin mass ratioon 05-22-2022 Albumin/Globulin [Mass ratio] 1.3 {ratio} 0.9-2.4 [facility] Work Phone: Serum or plasma calcium kassandra urement (mass/volume)on 05-22-2022 Calcium [Mass/Vol] 9.3 mg/dL 8.5-10.1 [facility] Work Phone: Serum or plasma creatinine m easurement (mass/volume)on 05-22-2022 Creatinine [Mass/Vol] 0.76 mg/dL 0.55-1.02 [facility] Work Phone: Comment on above: The validity of the calculated GFR & GFRAA in patients over 70 years has not been determined. Clinical correlation is essential. Serum or plasma prolactin me asurement (mass/volume)on 05-22-2022 Prolactin [Mass/Vol] 5.6 ng/mL [facility] Work Phone: Comment on above: NORMAL REFERENCE RAN GES FEMALE NON- 2.2 - 30.3 ng/mL 8.1 - 347.6 ng/mL POST-MENOPAUSAL 0.7 - 31.5 ng/mL MALE 2.5 - 17.4 ng/mL Serum or plasma urea nitroge n measurement (mass/volume)on 05-22-2022 Urea nitrogen [Mass/Vol] 15 mg/dL 7-18 [facility] Work Phone: Thin prep Papanicolaou smear with manual screeningon 05-22-2022 Thin prep Papanicolaou smear with manual screening 23 U/L 15-37 [facility] Work Phone: Thin prep Papanicolaou smear with manual screening 6 5-15 [facility] Work Phone: Serum or plasma gastrin kassandra urement (mass/volume)on 05-15-2022 Gastrin [Mass/Vol] 929 pg/mL 0-115 [facility] Work Phone: Comment on above: Siemens Immulite 200 0 Immunochemiluminometric assay (ICMA)Values obtained with different assay methods or kits cannotbe used interchangeably. Results cannot be interpreted asabsolute evidence of the presence or absence of malignantdisease.Performed at: [address] [id number] Director: Jr Gustafson MD, Phone: [phone] Glucose Glucometer (BldC) [M ass/Vol]on 05-08-2022 Glucose [Mass/Vol] 106 mg/dL 74-106 [facility] Work Phone: Comment on above: MANAGEMENT OF PATIEN T CARE PER NURSING PROTOCOL Absolute lymphocyte counton 01-25-2022 Lymphocytes Auto (Unsp spec) [#/Vol] 1.70 10*3/uL 0.83-4.51 [facility] Work Phone: Basophil percentageon 2021 Basophil percentage 0-5 SEEN /hpf 0-5 [facility] Work Phone: Basophils/100 WBC (Bld) 0.6 % 0-1 [facility] Work Phone: [phone] Bilirubin [Mass/Vol] 0.50 mg/dL 0.20-1.00 [facility] Work Phone: Comment on above: For patients on eltr ombopag therapy, use of Dimension [place] TBIL is not recommended. Chloride [Moles/Vol] 107 mmol/L 98-107 [facility] Work Phone: Eosinophils/100 WBC (Bld) 1.9 % 0-5 [facility] Work Phone: Glucose [Mass/Vol] 106 mg/dL 74-106 [facility] Work Phone: Comment on above: Fasting Glucose resu lt from 100 to 125 mg/dL suggests IMPAIRED HOMEOSTASIS per A.D.A. criteria. Neutrophils (Bld) [#/Vol] 4.0 10*3/uL 2.0-7.7 [facility] Work Phone: Neutrophils/100 WBC (Bld) 64.2 % 47-70 [facility] Work Phone: [phone] Potassium [Moles/Vol] 4.0 mmol/L 3.5-5.1 [facility] Work Phone: Protein [Mass/Vol] 7.8 g/dL 6.4-8.2 [facility] Work Phone: Sodium [Moles/Vol] 138 mmol/L 136-145 [facility] Work Phone: WBC (Bld) [#/Vol] 6.2 10*3/uL 4.4-11.0 [facility] Work Phone: Bilirubin Test strip Ql (U)o n 01-25-2022 Bilirubin Ql (U) Negative Negative [facility] Work Phone: Blood erythrocytes count (nu mber/volume)on 01-25-2022 RBC (Bld) [#/Vol] 5.12 10*6/uL 4.2-5.4 [facility] Work Phone: Blood hemoglobin measurement (mass/volume)on 01-25-2022 Hemoglobin (Bld) [Mass/Vol] 14.9 g/dL 12.0-15.0 [facility] Work Phone: Blood lymphocytes/100 leukoc yteson 01-25-2022 Lymphocytes/100 WBC (Bld) 27.6 % 19-41 [facility] Work Phone: Blood monocytes/100 leukocyt eson 01-25-2022 Monocytes/100 WBC (Bld) 5.5 % 0-10 [facility] Work Phone: Blood platelet mean volumeon 01-25-2022 Platelet mean volume (Bld) [Entitic vol] 10.1 fL 6.2-12.0 [facility] Work Phone: Determination of erythrocyte mean corpuscular volume (MCV)on 01-25-2022 MCV (RBC) [Entitic vol] 86.9 fL 81-99 [facility] Work Phone: Hematocrit Auto (Bld) [Volum e fraction]on 01-25-2022 Hematocrit (Bld) [Volume fraction] 44.5 % 37-47 [facility] Work Phone: Ketones Test strip Ql (U)on 01-25-2022 Ketones Ql (U) Negative Negative [facility] Work Phone: Laboratory - Chemistry and C hemistry - challengeon 01-25-2022 ALP [Catalytic activity/Vol] 88 U/L 45-117 [facility] Work Phone: ALT [Catalytic activity/Vol] 81 U/L 13-56 [facility] Work Phone: CO2 [Moles/Vol] 27.0 mmol/L 21.0-32.0 [facility] Work Phone: Globulin (S) [Mass/Vol] 3.6 g/dL 2.2-4.2 [facility] Work Phone: Lipase [Catalytic activity/Vol] 141 U/L 73-393 [facility] Work Phone: Urea nitrogen/Creatinine [Mass ratio] 19.9 mg/mg 10-20 [facility] Work Phone: Laboratory - Hematology and Cell countson 01-25-2022 Erythrocyte distribution width (RBC) [Entitic vol] 38.0 fL 35.1-43.9 [facility] Work Phone: Erythrocyte distribution width (RBC) [Ratio] 11.9 % 11.6-14.6 [facility] Work Phone: Immature granulocytes/100 WBC (Bld) 0.200 % 0.0-0.9 [facility] Work Phone: Comment on above: IG% - Immature Granu locytes (promyelocytes, myelocytes and metamyelocytes) > 1% indicates that a LEFT SHIFT is Present. MCH (RBC) [Entitic mass] 29.1 pg 27.0-32.0 [facility] Work Phone: Nucleated RBC/100 WBC (Bld) [Ratio] 0 % 0-5 [facility] Work Phone: MCHC Auto (RBC) [Mass/Vol]on 01-25-2022 MCHC (RBC) [Mass/Vol] 33.5 g/dL 32-36 [facility] Work Phone: Mucus LM Ql (Urine sed)on Mucus Ql (Urine sed) 0 SEEN /hpf [facility] Work Phone: Nitrite Test strip Ql (U)on 01-25-2022 Nitrite Ql (U) Negative Negative [facility] Work Phone: No Panel Informationon 01-25 Estimated Creatinine Clearance Calc 73.61 ml/min [facility] Work Phone: Estimated GFR (MDRD) Amer 87 mL/min >60 [facility] Work Phone: Comment on above: GFR Calc Estimated GFR (MDRD) Non-Af Amer 72 mL/min >60 [facility] Work Phone: Comment on above: Non- GFR Calc Platelets bldon 01-25-2022 Platelets (Bld) [#/Vol] 302 10*3/uL 150-450 [facility] Work Phone: Protein Test strip Ql (U)on 01-25-2022 Protein Ql (U) Negative Negative [facility] Work Phone: Serum or plasma albumin kassandra urement (mass/volume)on 01-25-2022 Albumin [Mass/Vol] 4.2 g/dL 3.2-5.0 [facility] Work Phone: Serum or plasma albumin/glob ulin mass ratioon 01-25-2022 Albumin/Globulin [Mass ratio] 1.2 {ratio} 0.9-2.4 [facility] Work Phone: Serum or plasma calcium kassandra urement (mass/volume)on 01-25-2022 Calcium [Mass/Vol] 9.8 mg/dL 8.5-10.1 [facility] Work Phone: Serum or plasma creatinine m easurement (mass/volume)on 01-25-2022 Creatinine [Mass/Vol] 0.86 mg/dL 0.55-1.02 [facility] Work Phone: Comment on above: The validity of the calculated GFR & GFRAA in patients over 70 years has not been determined. Clinical correlation is essential. Serum or plasma urea nitroge n measurement (mass/volume)on 01-25-2022 Urea nitrogen [Mass/Vol] 17 mg/dL 7-18 [facility] Work Phone: Squamous epithelial cells de tection in urine sediment by light microscopyon 01-25-2022 Epithelial cells.squamous LM Ql (Urine sed) 0-5 SEEN /hpf 5-10 [facility] Work Phone: Thin prep Papanicolaou smear with manual screeningon 01-25-2022 Thin prep Papanicolaou smear with manual screening 43 U/L 15-37 [facility] Work Phone: Thin prep Papanicolaou smear with manual screening 4 5-15 [facility] Work Phone: Urine blood detectionon RBC Ql (U) Negative Negative [facility] Work Phone: RBC Ql (U) 0 SEEN /hpf 0-5 [facility] Work Phone: Urine clarityon 01-25-2022 Clarity (U) Sl. Cloudy Clear [facility] Work Phone: Urine color determinationon 01-25-2022 Color (U) Yellow Yellow [facility] Work Phone: Urine glucose detectionon Glucose Ql (U) Normal mg/dl Normal [facility] Work Phone: Urine leukocyte esterase det ection by dipstickon 01-25-2022 Leukocyte esterase Test strip Ql (U) 25 /ul Negative [facility] Work Phone: Urine pHon 01-25-2022 pH (U) 6.5 [pH] 5.0 - 8.0 [facility] Work Phone: Urine sediment bacteria coun t by microscopy (number/high power field)on 01-25-2022 Bacteria LM.HPF (Urine sed) [#/Area] 1 /[HPF] None Seen [facility] Work Phone: Urine specific gravity measu rementon 01-25-2022 Specific gravity (U) [Rel density] 1.015 1.002-1.03 0 [facility] Work Phone: Urobilinogen Auto test strip Ql (U)on 01-25-2022 Urobilinogen Ql (U) Normal mg/dl Normal [facility] Work Phone: Automatic [place] CCD-CCDAon 04-06-2020 Automatic [place] CCD-CCDA conversion failed Normal [facility] Established Visit (Gastroent erology)on 2020 Established Visit (Gastroenterology) Diagnoses/Problems Assessed Upper abdominal pain of unknown etiology (789.09) (R10.10) Orders Chronic diarrhea of unknown origin, Upper abdominal pain of unknown etiology Stop: Dicyclomine HCl - 20 MG Oral Tablet Rx By: Jose Palomares; Dispense: 0 Days ; #:90 Tablet; Refill: 2;For: Chronic diarrhea of unknown origin, Upper abdominal pain of unknown etiology; KAYLI = N; Sent To: [employer]; Last Updated By: Zita Mendoza; 2020 11:50:43 AM Upper abdominal pain of unknown etiology Start: Pantoprazole Sodium 40 MG Oral Tablet Delayed Release; Take one tablet every morning before breakfast on an empty stomach for stomach Rx By: Jose Palomares; Dispense: 0 Days ; #:30 Tablet; Refill: 2;For: Upper abdominal pain of unknown etiology; KAYLI = N; Verified Transmission to [facility]; Last Updated By: Belen Lim; 2020 12:21:32 PM Unlinked Stop: Victoza 18 MG/3ML Subcutaneous Solution Pen-injector Dispense: 0 Days ; #: Sufficient; Refill: 0; KAYLI = N; Record; Last Updated By: Zita Mendoza; 2020 11:50:43 AM Continue: cloNIDine HCl - 0.2 MG Oral Tablet Dispense: 0 Days ; #: Sufficient; Refill: 0; KAYLI = N; Record; Last Updated By: Zita Mendoza; 2020 11:50:43 AM Continue: Lisinopril-hydroCHLOROthiaz bernadine 20-25 MG Oral Tablet Dispense: 0 Days ; #: Sufficient; Refill: 0; KAYLI = N; Record; Last Updated By: Zita Mendoza; 2020 11:50:43 AM Continue: traMADol HCl - 50 MG Oral Tablet Dispense: 0 Days ; #: Sufficient; Refill: 0; KAYLI = N; Record; Last Updated By: Zita Mendoza; 2020 11:50:43 AM Patient Discussion/Summary Impression: 1. Persistent epigastric pain 2. Resolving nausea and diarrhea after discontinuing metformin and Victoza 3. Mild fatty liver on ultrasound secondary to prior history of alcohol, weight loss, and diabetes 4. Anxiety which is certainly increasing her symptomatology Recommendation: 1. The differential diagnosis of the patient's symptoms was discussed, and an upper endoscopy examination was recommended. The procedure and sedation were discussed including but not limited to risks of bleeding, perforation and reaction to medication including cardiopulmonary events. The office endoscopy forms were reviewed and signed. The patient was instructed on not being able to drive the day of the exam after being sedated. All of the patient's questions were answered. Patient appears medically stable for the procedure. 2. Discontinue famotidine and start pantoprazole 40 mg daily before breakfast on an empty stomach. A new prescription was sent to your pharmacy 3. Continue probiotic daily 4. Continue Mediterranean type diet with fruits, vegetables, grains, and small portions of meat/fish. Avoid highly processed foods and fast food 5. Discuss with primary care about treatment for anxiety. 6. I discussed with her that fatty liver disease has many etiologies in her case is probably due to her prior alcohol history, diabetes, and 40 pound weight loss. She does not have evidence of portal hypertension on recent CT scan or clinically. I don't think an ultrasound with elastography is indicated at this point. Chief Complaint Epigastric pain History of Present Illness 55-year-old female seen in recheck for a host of GI symptoms including vomiting, abdominal pain, diarrhea, and fatty liver. She was drinking alcohol heavily since her mother about a year ago from colon cancer. In December 2018 she had an EGD showing mild gastritis but was H. pylori negative. Colonoscopy that time showed a tubular adenoma and diverticular disease. In August 2019 she developed abdominal pain with nausea and diarrhea. She quit smoking and drinking alcohol at that time with some improvement but continued to have diarrhea. CT abdomen with IV contrast in August showed kidney cysts, diverticulosis, uterine fibroid, and a lung nodule. The liver appeared normal. She is evaluated by her primary care physician who discontinued metformin and Victoza. Her diarrhea is has resolved after that with her averaging one bowel movement a day. She still has some nausea but it is 90% better. She still complains of epigastric pain that is burning in nature. It seems to be with her most the time and gets worse at times. She recently had an ultrasound of her abdomen 2 weeks ago and was told she had a fatty liver. She is very anxious about that. Her celiac antibody testing was negative and her recent liver enzymes were normal except for slight elevation of GGT at 80. Review of Systems ROS: Const: Denies fatigue, fever and she has lost 40 pounds on diet therapy. CV: Denies chest pain, pacemaker, palpitations and valvular heart disease. Resp: Denies cough, sleep apnea, SOB and snoring. GI: Denies symptoms other than stated above. Musculo: Denies joint pain and muscle pain. Skin: Denies hives and rash. Neuro: Denies seizures and stroke. Psych: She has high anxiety about all her medical illnesses Endocrine: Denies intolerance to cold, hot flashes and her glucose intolerance has improved with weight reduction Neel/Lymph: Denies anemia, blood transfusions, chemotherapy, enlarged lymph nodes and radiation treatment of any kind. Active Problems Problems Chronic diarrhea of unknown origin (787.91) (K52.9) Elevated liver enzymes (790.5) (R74.8) Upper abdominal pain of unknown etiology (789.09) (R10.10) Past Medical History Problems History of diabetes mellitus (V12.29) (Z86.39) History of hypertension (V12.59) (Z86.79) History of irritable bowel syndrome (V12.79) (Z87.19) Surgical History Problems History of Colonoscopy dec 2018 in [place] History of Esophagogastroduodenoscopy dec 2018 in [place] History of Knee arthroscopy Family History Mother Family history of Colon Cancer Father Family history of Alive and well Sister Family history of Alive and well Brother Family history of Alive and well Social History Problems Caffeine use (V49.89) (Z78.9) Former consumption of alcohol (V11.3) (Z87.898) Former smoker (V15.82) (Z87.891) History of body piercing (V45.89) (Z98.890) No illicit drug use Allergies NoKnown No Known Allergies Recorded By: Zita Mendoza; 12/24/2019 8:01:03 AM Current Meds Medication NameInstruction cloNIDine HCl - 0.2 MG Oral Tablet Dicyclomine HCl - 20 MG Oral Tablet1 TAB 3 TIMES A DAY PRIOR TO MEALS Lisinopril-hydroCHLOROthiaz bernadine 20-25 MG Oral Tablet traMADol HCl - 50 MG Oral Tablet Victoza 18 MG/3ML Subcutaneous Solution Pen-injector Vitals Vital Signs Recorded: 11Jan2020 11:47AM Heart Rate71 [id number] Ncsnqicfg61 Height5 ft 9 in Unhmsz885 lb 6 oz BMI Lvcfctowmq42.13 BSA Calculated1.9 O2 Oczkogdfhl60 Physical Exam Exam: Const: . Vital signs and weight reviewed. No stigmata suggesting chronic liver disease. ENMT: Oral mucosa moist with no thrush and no mucositis. Neck: Supple and symmetric. Thyroid is normal in size and texture. Resp: Respiration rate is normal. Clear to auscultation. CV: Rhythm is regular. No heart murmur appreciated. Carotids: 2+ and equal bilaterally, without bruits. Femorals: 2+ and equal bilaterally, without bruits. Abdomen: Abdomen is soft with bowel sounds. No organomegaly. She has tenderness in the epigastric region. Anus/Perineum/Rectum: Exam deferred. Lymph: No visible or palpable cervical lymphadenopathy. Inguinal nodes not palpable. Skin: Dry and warm with no nodularity or rash. No spider angiomas Psych: Affect is very anxious. Alert and oriented x3. Neuro: Cranial nerves intact. No focal motor defects Muscloskeletal: No joint deformity or swelling. Motor strength normal. Signatures Electronically signed by : Jose Palomares DO; 2020 4:07PM EST (Author) Normal [facility] Initial Visit (Gastroenterol ogy)on 12-24-2019 Initial Visit (Gastroenterology) Diagnoses/Problems Assessed Upper abdominal pain of unknown etiology (789.09) (R10.10) Chronic diarrhea of unknown origin (787.91) (K52.9) Elevated liver enzymes (790.5) (R74.8) Orders SocHx: Former smoker Tobacco Use Screening; Status:Complete; Done: 24Dec2019 Perform:Not Applicable;Ordered; For:SocHx: Former smoker; Ordered By:Zita Mendoza; Patient Discussion/Summary Impression: 1. Upper abdominal pain 2. Heartburn with dyspepsia 3. Chronic diarrhea rule out microscopic colitis versus irritable bowel syndrome with diarrhea 4. Elevated liver enzymes 5. Family history of colon cancer Recommendation: 1. Your blood tests, x-ray studies, and endoscopy reports will be obtained from your family doctor and [facility] for review. 2. Start Benefiber 1-2 teaspoons every morning. This is owca-zsc-ypzwszm fiber. 3. Increase dicyclomine 20 mg 3 times a day a half hour before meals. A new prescription was sent to your pharmacy today 4. Start [employer] 2 capsules every morning for a probiotic. This is gtww-xgh-sljinwd. 5. Start famotidine 20 mg twice a day for your stomach. A new prescription was sent to your pharmacy. 6. Additional blood tests may be done prior to your next office visit after review of the above. 7. Return to office in 3 weeks to go over all of your testing and decide further workup if needed. Chief Complaint Abdominal pain, diarrhea, elevated liver enzymes History of Present Illness 54-year-old female is seen for multiple gastroenterology complaints. She's been having chronic diarrhea and nausea since the summer of 2018. She averages over 5 loose urgent stools a day. There is no blood in the stool. She does have nocturnal stools at times. She has tried Metamucil, but this seemed to make her diarrhea worse. She was started on dicyclomine 10 mg about 2 months ago that seems to have decreased her stool frequency somewhat. Her symptoms include upper abdominal pain. She has a burning intermittent epigastric pain that radiates into her right flank. This is rated 5/10 in severity. It seems to come and go and last about 2 hours at a time. 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 She has had persistent nausea which was severe initially at the onset of her symptoms in July occurring before and after bowel movements. After starting dicyclomine her nausea has improved. She has been to the [place] emergency department in August and again last week, and workups have been negative according to her. None of these records are available. She was found to have elevated liver enzymes and had repeat testing by her primary care doctor. Again no records are available. She reports having a EGD and colonoscopy in December 2018 and had a polyp removed. Her mother of rectal cancer in December 2018 and the patient was emotionally distraught for that. She began drinking whiskey about every other night all night long. She stopped this about 2 months ago. She follows a lactose restricted diet. She drinks a little bit of coffee but no polyp. There is no family history of celiac disease. Review of Systems ROS: Const: Denies fatigue, fever and weight loss. CV: Denies chest pain, pacemaker, palpitations and valvular heart disease. Resp: Denies cough, sleep apnea, SOB and snoring. GI: Denies symptoms other than stated above. Musculo: Denies joint pain and muscle pain. Skin: Denies hives and rash. Neuro: Denies seizures and stroke. Psych: Has anxiety and depression symptoms Endocrine: Denies intolerance to cold, hot flashes and reports having diabetes. Neel/Lymph: Denies anemia, blood transfusions, chemotherapy, enlarged lymph nodes and radiation treatment of any kind. Past Medical History Problems History of diabetes mellitus (V12.29) (Z86.39) History of hypertension (V12.59) (Z86.79) History of irritable bowel syndrome (V12.79) (Z87.19) Surgical History Problems History of Colonoscopy dec 2018 in [place] History of Esophagogastroduodenoscopy dec 2018 in [place] History of Knee arthroscopy Family History Mother Family history of Colon Cancer Father Family history of Alive and well Sister Family history of Alive and well Brother Family history of Alive and well Social History Problems Caffeine use (V49.89) (Z78.9) Former consumption of alcohol (V11.3) (Z87.898) Former smoker (V15.82) (Z87.891) History of body piercing (V45.89) (Z98.890) No illicit drug use Allergies NoKnown No Known Allergies Recorded By: Zita Mendoza; 12/24/2019 8:01:03 AM Current Meds Medication NameInstruction cloNIDine HCl - 0.2 MG Oral Tablet Dicyclomine HCl - 10 MG Oral Capsule Lisinopril-hydroCHLOROthiaz bernadine 20-25 MG Oral Tablet metFORMIN HCl - 500 MG Oral Tablet traMADol HCl - 50 MG Oral Tablet Victoza 18 MG/3ML Subcutaneous Solution Pen-injector Vitals Vital Signs Recorded: 24Dec2019 07:53AM Heart Rate94 Cprarmil500 Iadxxewhl18 Height5 ft 9 in Fcwmtk885 lb 4 oz BMI Hfvoapucrv10.7 BSA Calculated1.91 O2 Lotenpeieo20 Physical Exam Exam: Const: . Vital signs and weight reviewed. No stigmata suggesting chronic liver disease ENMT: Oral mucosa moist with no thrush and no mucositis. Neck: Supple and symmetric. Thyroid is normal in size and texture. Resp: Respiration rate is normal. Clear to auscultation. CV: Rhythm is regular. No heart murmur appreciated. Carotids: 2+ and equal bilaterally, without bruits. Femorals: 2+ and equal bilaterally, without bruits. Abdomen: Soft with bowel sounds. No organomegaly. Has mild generalized tenderness across the upper abdomen without rebound or guarding. Anus/Perineum/Rectum: Exam deferred. Lymph: No visible or palpable cervical lymphadenopathy. Inguinal nodes not palpable. Skin: Dry and warm with no nodularity or rash. No spider angiomas Psych: Affect is anxious. Alert and oriented x3. Neuro: Cranial nerves intact. No focal motor defects Muscloskeletal: No joint deformity or swelling. Motor strength normal. Signatures Electronically signed by : Jose Palomares DO; Dec 24 2019 8:57AM EST (Author) Normal Touchworks Vital Signs Date Time Vital Sign Value Performing Clinician Kaleigh baer 05-16-2025 16:00-0400 Diastolic blood pressure 85 mm[Hg] Dr. Bret Gomez MD Work Phone: [facility] 05-16-2025 16:00-0400 Heart rate 70 /min Dr. Bret Gomez MD Work Phone: [facility] 05-16-2025 16:00-0400 Respiratory rate 14 /min Dr. Bret Gomez MD Work Phone: [facility] 05-16-2025 16:00-0400 SaO2% (BldA) [Mass fraction] 99 % Dr. Bret Gomez MD Work Phone: [facility] 05-16-2025 16:00-0400 Systolic blood pressure 141 mm[Hg] Dr. Bret Gomez MD Work Phone: [facility] 05-16-2025 14:55-0400 Body temperature 98.1 [degF] Dr. Bret Gomez MD Work Phone: 2(721)415-946433 [place] [address] 05-16-2025 11:39-0400 Body height 175.[address] Bret Gomez MD Work Phone: 2(483)869-315225 [place] [address] 05-16-2025 11:39-0400 Body mass index (BMI) [Ratio] 24.9 kg/m2 Dr. Bret Gomez MD Work Phone: 7(077)733-870743 [address] 05-16-2025 11:39-0400 Body weight 76.[address] Bret Gomez MD Work Phone: 9(899)503-041925 [place] [address] 05-04-2025 12:55-0400 Body height 175.[address] Bret Gomez MD Work Phone: 5(895)191-606625 [place] [address] 05-04-2025 12:55-0400 Body mass index (BMI) [Ratio] 25.8 kg/m2 Dr. Bret Gomez MD Work Phone: 4(751)321-312025 [place] [address] 05-04-2025 12:55-0400 Body weight 79.[address] Bret Gomez MD Work Phone: 0(150)126-368625 [place] [address] 03-21-2024 05:12-0400 Body temperature 97.7 [degF] Dr. Bret Gomez Work Phone: 3(040)153-058743 [address] 03-21-2024 05:12-0400 Diastolic blood pressure 68 mm[Hg] Dr. Bret Gomez Work Phone: 0(999)346-018743 [address] 03-21-2024 05:12-0400 Heart rate 82 /min Dr. Bret Gomez Work Phone: 0(437)048-580343 [address] 03-21-2024 05:12-0400 Respiratory rate 16 /min Dr. Bret Gomez Work Phone: 2(854)657-651533 [place] [address] 03-21-2024 05:12-0400 SaO2% (BldA) [Mass fraction] 91 % Dr. Bret Gomez Work Phone: 3(169)354-272433 [place] [address] 03-21-2024 05:12-0400 Systolic blood pressure 127 mm[Hg] Dr. Bret Gomez Work Phone: [facility] 03-21-2024 03:27-0400 Body height 175.[address] Bret Gomez Work Phone: [facility] 03-21-2024 03:27-0400 Body mass index (BMI) [Ratio] 26.5 kg/m2 Dr. Bret Gomez Work Phone: [facility] 03-21-2024 03:27-0400 Body weight 81.[address] Bret Gomez Work Phone: [facility] 10-29-2023 08:50-0500 Body temperature 97.7 [degF] Dr. Bret Gomez Work Phone: [facility] 10-29-2023 08:50-0500 Diastolic blood pressure 60 mm[Hg] Dr. Bret Gomez Work Phone: [facility] 10-29-2023 08:50-0500 Heart rate 59 /min Dr. Bret Gomez Work Phone: [facility] 10-29-2023 08:50-0500 Respiratory rate 16 /min Dr. Bret Gomez Work Phone: [facility] 10-29-2023 08:50-0500 SaO2% (BldA) [Mass fraction] 97 % Dr. Bret Gomez Work Phone: [facility] 10-29-2023 08:50-0500 Systolic blood pressure 109 mm[Hg] Dr. Bret Gomez Work Phone: [facility] 10-29-2023 07:04-0500 Body height 175.[address] Bret Gomez Work Phone: [facility] 10-29-2023 07:04-0500 Body mass index (BMI) [Ratio] 26 kg/m2 Dr. Bret Gomez Work Phone: [facility] 10-29-2023 07:04-0500 Body weight [address] Bret Gomez Work Phone: [facility] 10-23-2022 09:00-0500 Body temperature 97 [degF] Dr. Bret Gomez Work Phone: [facility] Work Phone: 10-23-2022 09:00-0500 Diastolic blood pressure 96 mm[Hg] Dr. Bret Gomez Work Phone: [facility] Work Phone: 10-23-2022 09:00-0500 Heart rate 58 /min Dr. Bret Gomez Work Phone: [facility] Work Phone: 10-23-2022 09:00-0500 Respiratory rate 18 /min Dr. Bret Gomez Work Phone: [facility] Work Phone: 10-23-2022 09:00-0500 SaO2% (BldA) [Mass fraction] 98 % Dr. Bret Gomez Work Phone: [facility] Work Phone: 10-23-2022 09:00-0500 Systolic blood pressure 114 mm[Hg] Dr. Bret Gomez Work Phone: [facility] Work Phone: 10-23-2022 07:48-0500 Body height 175.[address] Bret Gomez Work Phone: [facility] Work Phone: 10-23-2022 07:48-0500 Body mass index (BMI) [Ratio] 26 kg/m2 Dr. Bret Gomez Work Phone: [facility] Work Phone: 10-23-2022 07:48-0500 Body weight [address] Bret Gomez Work Phone: [facility] Work Phone: 08-28-2022 11:34-0400 Body mass index (BMI) [Ratio] 25.9 kg/m2 Dr. Bret Gomez Work Phone: [facility] Work Phone: 08-28-2022 11:34-0400 Body weight 79.[address] Bret Gomez Work Phone: [facility] Work Phone: 08-28-2022 11:34-0400 Diastolic blood pressure 84 mm[Hg] Dr. Bret Gomez Work Phone: [facility] Work Phone: 08-28-2022 11:34-0400 Heart rate 53 /min Dr. Bret Gomez Work Phone: [facility] Work Phone: 08-28-2022 11:34-0400 SaO2% (BldA) [Mass fraction] 56 % Dr. Bret Gomez Work Phone: [facility] Work Phone: 08-28-2022 11:34-0400 Systolic blood pressure 137 mm[Hg] Dr. Bret Gomez Work Phone: [facility] Work Phone: 05-15-2022 14:54-0400 Body height 175.[address] Bret Gomez Work Phone: [facility] Work Phone: 05-15-2022 14:54-0400 Body mass index (BMI) [Ratio] 25.8 kg/m2 Dr. Bret Gomez Work Phone: [facility] Work Phone: 05-15-2022 14:54-0400 Body weight 79.[address] Bret Gomez Work Phone: [facility] Work Phone: 05-15-2022 14:54-0400 Diastolic blood pressure 87 mm[Hg] Dr. Bret Gomez Work Phone: [facility] Work Phone: 05-15-2022 14:54-0400 Heart rate 64 /min Dr. Bret Gomez Work Phone: [facility] Work Phone: 05-15-2022 14:54-0400 SaO2% (BldA) [Mass fraction] 96 % Dr. Bret Gomez Work Phone: [facility] Work Phone: 05-15-2022 14:54-0400 Systolic blood pressure 136 mm[Hg] Dr. Bret Gomez Work Phone: [facility] Work Phone: 05-08-2022 13:23-0400 Body temperature 97 [degF] Dr. Bret Gomez Work Phone: [facility] Work Phone: 05-08-2022 13:23-0400 Diastolic blood pressure 63 mm[Hg] Dr. Bret Gomez Work Phone: [facility] Work Phone: 05-08-2022 13:23-0400 Heart rate 71 /min Dr. Bret Gomez Work Phone: [facility] Work Phone: 05-08-2022 13:23-0400 Respiratory rate 16 /min Dr. Bret Gomez Work Phone: [facility] Work Phone: 05-08-2022 13:23-0400 SaO2% (BldA) [Mass fraction] 100 % Dr. Bret Gomez Work Phone: [facility] Work Phone: 05-08-2022 13:23-0400 Systolic blood pressure 120 mm[Hg] Dr. Bret Gomez Work Phone: [facility] Work Phone: 05-08-2022 11:20-0400 Body mass index (BMI) [Ratio] 25 kg/m2 Dr. Bret Gomez Work Phone: [facility] Work Phone: 05-08-2022 11:20-0400 Body weight [address] Bret Gomez Work Phone: [facility] Work Phone: 01-25-2022 12:02-0500 Diastolic blood pressure 77 mm[Hg] Dr. Bret Gomez Work Phone: [facility] Work Phone: 01-25-2022 12:02-0500 Heart rate 68 /min Dr. Bret Gomez Work Phone: [facility] Work Phone: 01-25-2022 12:02-0500 Respiratory rate 16 /min Dr. Bret Gomez Work Phone: [facility] Work Phone: 01-25-2022 12:02-0500 SaO2% (BldA) [Mass fraction] 98 % Dr. Bret Gomez Work Phone: [facility] Work Phone: 01-25-2022 12:02-0500 Systolic blood pressure 131 mm[Hg] Dr. Bret Gomez Work Phone: [facility] Work Phone: 01-25-2022 09:25-0500 Body mass index (BMI) [Ratio] 25.2 kg/m2 Dr. Bret Gomez Work Phone: [facility] Work Phone: 01-25-2022 09:25-0500 Body temperature 96.9 [degF] Dr. Bret Gomez Work Phone: [facility] Work Phone: 01-25-2022 09:25-0500 Body weight 77.[address] Bret Gomez Work Phone: [facility] Work Phone: Encounters Encounter Date Encounter Type Care Provider Facility Start: 05-16-2025 Evaluation and management of inpatient Dr. Marilin Yuen MD -Progressive Care Unit Work Phone: Start: 05-16-[address] Bret Gomez MD Work Phone: [facility] Work Phone: Start: 05-04-2025 End: 05-04-[address] Kaiser Cee MD -[facility] Start: 05-04-2025 End: 05-04-[address] 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 DEVELOPMENT WORKER Facility:[facility] Start: 09-27-2024 End: 09-27-2024 ambulatory [facility] Facility:[facility] Start: 08-12-2024 End: 08-12-2024 ambulatory [facility] Edson Facility:[facility] Start: 08-04-2024 End: 08-04-2024 ambulatory Gumaroshi Sandhu Facility:[facility] Start: 07-28-2024 Encounter for genera l adult medical examination without abnormal findings Gumaroryan Sandhu [facility] Start: 07-16-2024 ambulatory Gumaro Sandhu Facility :[facility] Start: 07-16-2024 End: 07-16-2024 ambulatory Bret [place] Facility:[facility] Start: 07-08-2024 End: 07-08-2024 ambulatory Bret Gomez Facility:[facility] Start: 07-06-2024 End: 07-06-20[facility] Start: 03-21-2024 End: 03-21-2024 Emergency department patient visit Dr. Bret Gomez Work Phone: [facility]-Emergency Department Work Phone: Start: 03-16-2024 End: 03-16-2024 Non-patient / Non-visit Dr. Bret Gomez Work Phone: [facility] Work Phone: Start: 03-16-2024 End: 03-16-[address] Bret Gomez Work Phone: [facility] Work Phone: Start: 03-16-2024 End: 03-16-[address] Bret Gomez Work Phone: [facility]-Pulmonary Services/Neurology Work Phone: Start: 03-08-2024 End: 03-08-[address] Bret Gomez Work Phone: [facility] Work Phone: Start: 03-08-2024 End: 03-08-[address] Bret Gomez Work Phone: [facility] Work Phone: Start: 02-23-2024 End: 02-23-[address] Bret Gomez Work Phone: [facility] Work Phone: Start: 02-23-2024 End: 02-23-[address] Bret Gomez [facility] Start: 02-17-[address] Bret Gomez Work Phone: [facility]-Physical Therapy Work Phone: Start: 02-13-2024 End: 02-13-[address] Bret Gomez Work Phone: [facility] Work Phone: Start: 10-29-2023 Non-patient / Non-visit Dr. Torsten Gomez Work Phone: [facility] Start: 10-29-2023 End: 10-29-2023 Admission to same day surgery center Dr. Bret Gomez Work Phone: [facility]-Endoscopy Work Phone: Start: 10-29-2023 End: 10-29-[address] Bret Gomez Work Phone: [facility] Work Phone: Start: 10-27-2023 End: 10-27-[address] Bret Gomez Work Phone: [facility] Work Phone: Start: 10-27-2023 End: 10-27-[address] Bret Gomez Work Phone: [facility]-Outpatient Breast Imaging Work Phone: Start: 09-30-2023 End: 09-30-2023 ambulatory [facility] Work Phone: Start: 09-30-2023 End: 09-30-2023 [facility] Start: 09-01-2023 End: 09-01-2023 ambulatory [facility] Work Phone: Start: 09-01-2023 End: 09-01-2023 [facility] Start: 03-19-2023 End: 03-19-2023 ambulatory [facility] Work Phone: Start: 03-19-2023 End: 03-19-2023 [facility] Start: 10-23-2022 Non-patient / Non-visit Dr. Torsten Gomez Work Phone: [facility] Start: 10-23-2022 End: 10-23-2022 Admission to same day surgery center Dr. Bret Gomez Work Phone: [facility]-Endoscopy Start: 10-23-2022 End: 10-23-[address] Bret Gomez Work Phone: [facility] Work Phone: Start: 10-01-2022 End: 10-01-[address] Bret Gomez Work Phone: [facility]-Outpatient Bone Densitometry Start: 09-25-2022 End: 09-25-[address] Bret Gomez Work Phone: [facility]-Outpatient Breast Imaging Start: 09-20-2022 End: 09-20-[address] Bret Gomez [facility] Start: 08-28-2022 End: 08-28-[address] Bret Gomez Work Phone: [facility] Start: 06-10-2022 End: 06-10-[address] Bret Gomez Work Phone: [facility]-Nuclear Medicine, [facility] Start: 05-22-2022 End: 05-22-[address] Bret Gomez Work Phone: [facility]-Laboratory Start: 05-15-2022 End: 05-15-[address] Bret Gomez Work Phone: [facility]-Laboratory Start: 05-15-2022 End: 05-15-[address] Bret Gomez Work Phone: [facility] Start: 05-08-2022 Non-patient / Non-visit Dr. Torsten Gomez Work Phone: [facility] Start: 05-08-2022 End: 05-08-2022 Admission to same day surgery center Dr. Bret Gomez Work Phone: [facility]-Endoscopy Start: 02-12-2022 End: 02-12-[address] Bret Gomez Work Phone: [facility] Start: 01-25-2022 End: 01-25-2022 Emergency department patient visit Dr. Bret Gomez Work Phone: [facility]-Emergency Department Procedures Date Procedure Procedure Detail Performing Clinician Start: 05-16-2025 CT of head without contrast Dr. Bret mercado MD Work Phone: Start: 05-16-2025 Plain chest X-ray Dr. Bret Gomez MD Work Phone: Start: 05-16-[address] Bret Gomez MD Work Phone: Start: 05-04-2025 X-ray of knee, four or more views Dr[address] Torsten Gomez MD Work Phone: Start: 03-16-2024 Plain chest X-ray Dr. Bret Gomez Work Phone: Start: 03-08-2024 MRI of joint of lower extremity Dr. Bret Gomez Work Phone: Start: 02-23-2024 Plain X-ray of shoulder Dr. Bret Gomez Work Phone: Start: 10-29-[address] Bret anna Work Phone: Start: 10-27-[address] Bret Gomez Work Phone: Start: 10-23-[address] Bret anna Work Phone: Start: 10-01-2022 Dual energy X-ray absorptiometry Dr. Fidelia Gomez Work Phone: Start: 09-25-[address] Bret Gomez Work Phone: Start: 06-10-2022 Radionuclide localization of tumor, whole body Dr. Bret Gomez Work Phone: Start: 06-10-2022 Single photon emission computed tomography of tumor Dr. Bret Gomez Work Phone: Start: 01-25-2022 Computed tomography of abdomen and pelvis with intravenous contrast Dr. Bret Gomez Work Phone: Plan of Treatment Date Care Activity Detail Author Start: 05-17-2025 [facility] Start: 05-17-2025 [facility] Start: 05-17-2025 NM Heart Views W stress and W radionuclide IV [facility] Start: 05-17-2025 Nuclear Stress Test - Chemical Nuclear Stress Test - Chemical [facility] Start: 05-17-2025 Thyroid stimulating hormone measurement [facility] Start: 05-16-2025 Electrocardiographic procedure [facility] Start: 05-16-2025 Following clinical pathway protocol [facility] Start: 05-16-2025 Assessment of risk of venous thromboembolism [facility] Start: 05-16-2025 Care regimes management [facility] Start: 05-16-2025 CT angiography of head and neck CTA Head AND Neck W/ Contrast [facility] Start: 05-16-2025 Insertion of catheter into peripheral vein [facility] Start: 05-16-2025 Measuring intake and output [facility] Start: 05-16-2025 Notification of physician [facility] Start: 05-16-2025 Providing care according to standard [facility] Start: 05-16-2025 Provision of activity privileges [facility] Start: 05-16-2025 Tobacco use cessation education [facility] Start: 05-16-2025 End: 05-16-2025 [facility] Start: 05-16-2025 Verification routine [facility] Start: 05-16-2025 Admission procedure [facility] Start: 05-16-2025 End: 05-16-2025 [facility] Start: 05-04-2025 X-ray of knee, four or more views Knee 4 or More Views [facility] Start: 05-04-2025 XR Knee GE 4 Views [facility] Start: 10-29-2023 Egd transoral biopsy single/multiple EGD BIOPSY SINGLE/MULTIPLE [facility] Start: 10-29-2023 Patient discharge [facility] Start: 10-23-2022 Patient discharge [facility] Work Phone: Start: 05-15-2022 Gastrin [Mass/volume] in Serum or Plasma [facility] Work Phone: Start: 05-08-2022 Colonoscopy w/biopsy single/multiple COLONOSCOPY AND BIOPSY [facility] Work Phone: Start: 05-08-2022 Colsc flx w/rmvl of tumor polyp lesion snare tq COLONOSCOPY W/LESION REMOVAL [facility] Work Phone: Start: 05-08-2022 Egd transoral biopsy single/multiple EGD BIOPSY SINGLE/MULTIPLE [facility] Work Phone: Start: 05-08-2022 Patient discharge [facility] Work Phone: Alanine aminotransfe rase [Enzymatic activity/volume] in Serum or Plasma [facility] Albumin [Mass/volume ] in Serum or Plasma [facility] Alkaline phosphatase [Enzymatic activity/volume] in Serum or Plasma [facility] Anion gap in Serum or Plasma [facility] Bilirubin, total measurement [facility] BUN/Creatinine ratio [facility] Calcium [Mass/volume ] in Serum or Plasma [facility] Carbon dioxide, tota l [Moles/volume] in Central venous blood [facility] Cholesterol [Mass/vo lume] in Serum or Plasma [facility] Cholesterol in HDL [Mass/volume] in Serum or Plasma [facility] Creatinine [Mass/vol ume] in Serum or Plasma [facility] Erythrocyte mean cor puscular volume determination [facility] Gastrin [Mass/volume ] in Serum or Plasma [facility] Work Phone: Glucose [Mass/volume ] in Serum or Plasma [facility] Hematocrit [Volume F raction] of Blood [facility] Hemoglobin [Mass/vol ume] in Blood [facility] Leukocytes [#/volume] in Blood [facility] Low density lipoprot ein cholesterol measurement [facility] Magnesium measurement [facility] Mean corpuscular hem oglobin concentration determination [facility] Mean corpuscular hem oglobin determination [facility] Measurement of renal function [facility] Neutrophil count [facility] Neutrophil percent differential count [facility] Patient Education [facility] Work Phone: Patient referral [facility] Work Phone: Platelets [#/volume] in Blood [facility] Potassium measurement [facility] Red blood cell count [facility] Red cell distributio n width determination [facility] Serum chloride measurement [facility] Sodium measurement [facility] Total cholesterol:HD L ratio measurement [facility] Total protein measurement [facility] Triglycerides measurement [facility] Troponin T.cardiac [Mass/volume] in Serum or Plasma by High sensitivity method [facility] Urea nitrogen [Mass/ volume] in Serum or Plasma [facility] VLDL cholesterol measurement [facility] Immunizations Immunization Date Immunization Notes Care Provider Fa cility 06-13-[address] Fidelia Gomez Work Phone: [facility] Work Phone: 06-13-2014 pneumococcal vaccine , unspecified formulation Dr. Bret Gomez Work Phone: [facility] 08-30-[address] Bret Gomez Work Phone: [facility] Payers Date Payer Category Payer Self-pay [id number] 2024 Private Health Insurance [id number] 2015 Private Health Insurance [id number] Private Health Insurance [id number] Unknown [id number] Unknown [employer] [id number] Unknown [id number] 2.16.8 [id number] Unknown [id number] 2.16.8 [id number] Unknown [id number] 2.16.8 [id number] Unknown [id number] 2.16.8 [id number] Unknown [id number] 2.16.8 [id number] Unknown [id number] 2.16.8 [id number] Unknown [id number] 2.16.8 [id number] Unknown [id number] 2.16.8 [id number] Unknown [id number] 2.16.8 [id number] Unknown [id number] 2.16.8 [id number] Unknown [id number] 2.16.8 [id number] Social History Date Type Detail Facility Start: 05-15-2022 End: 03-21-2024 Tobacco smoking status [facility] Unknown if ever smoked [facility] Start: 06-11-2014 Occasional [facility] Start: 06-11-2014 None [facility] Start: 12-16-2019 Alone [facility] Start: 02-07-2021 Non-smoker [facility] Start: 1965 Sex Assigned At Female [facility] Start: 07-13-2024 End: 05-16-2025 Tobacco smoking status NHIS Ex-smoker (finding) [facility] Medical Equipment Procedure Code Equipment Code Equipment Original Text Equipment Identifier Dates Total cholecystectomy with exploration of common bile duct CLIP,RICKY [facility]SE FDA Start: 02-08-2021 Total cholecystectomy with exploration of common bile duct CLIP,HEMAPRIL [employer] ROSE FDA Start: 02-08-2021 Total cholecystectomy with exploration of common bile duct CLIP,HEMAPRIL CEDEÑO ROSE FDA Start: 02-08-2021 Total cholecystectomy with exploration of common bile duct CLIP,HEMOLOANABEL CEDEÑO WECK FDA Start: 02-08-2021 Total cholecystectomy with exploration of common bile duct CLIP,HEMOLOANABEL CEDEÑO WECK FDA Start: 02-08-2021 Total cholecystectomy with exploration of common bile duct CLIP,HEMOLOANABEL CEDEÑO WECK FDA Start: 02-08-2021 Total cholecystectomy with exploration of common bile duct CLIP,HEMOLOANABEL ROSE FDA Start: 02-08-2021 Total cholecystectomy with exploration of common bile duct CLIP,HEMOLOANABEL CEDEÑO WECK FDA Start: 02-08-2021 Total cholecystectomy with exploration of common bile duct CLIP,HEMOLOANABEL CEDEÑO WECK FDA Start: 02-08-2021 Total cholecystectomy with exploration of common bile duct CLIP,HEMOLOANABEL ROSE FDA Start: 02-08-2021 Total cholecystectomy with exploration of common bile duct CLIP,HEMOLOANABEL ROSE FDA Start: 02-08-2021 Total cholecystectomy with exploration of common bile duct CLIP,HEMAPRIL ROSE FDA Start: 02-08-2021 Total cholecystectomy with exploration of common bile duct CLIP,HEMOLOANABEL ROSE FDA Start: 02-08-2021 Total cholecystectomy with exploration of common bile duct CLIP,HEMOLOANABEL ROSE FDA Start: 02-08-2021 Total cholecystectomy with exploration of common bile duct CLIP,HEMAPRIL ROSE FDA Start: 02-08-2021 Total cholecystectomy with exploration of common bile duct CLIP,HEMAPRIL ROSE FDA Start: 02-08-2021 Total cholecystectomy with exploration of common bile duct CLIP,HEMAPRIL ROSE FDA Start: 02-08-2021 Total cholecystectomy with exploration of common bile duct CLIP,HEMOLOANABEL ROSE FDA Start: 02-08-2021 Total cholecystectomy with exploration of common bile duct CLIP,HEMOLOANABEL CEDEÑO WECK FDA Start: 02-08-2021 Total cholecystectomy with exploration of common bile duct CLIP,HEMOLOANABEL ROSE FDA Start: 02-08-2021 Total cholecystectomy with exploration of common bile duct CLIP,HEMOLOANABEL ROSE FDA Start: 02-08-2021 Total cholecystectomy with exploration of common bile duct CLIP,HEMAPRIL ROSE FDA Start: 02-08-2021 Total cholecystectomy with exploration of common bile duct CLIP,HEMOLOANABEL ROSE FDA Start: 02-08-2021 Total cholecystectomy with exploration of common bile duct [facility] FDA Start: 02-08-2021 Total cholecystectomy with exploration of common bile duct [facility] FDA Start: 02-08-2021 Total cholecystectomy with exploration of common bile duct [facility] FDA Start: 02-08-2021 Total cholecystectomy with exploration of common bile duct [facility] FDA Start: 02-08-2021 Total cholecystectomy with exploration of common bile duct [facility] FDA Start: 02-08-2021 Total cholecystectomy with exploration of common bile duct [facility] [employer] ROES FDA Start: 02-08-2021 Total cholecystectomy with exploration of common bile duct CLIP,[facility] Five[employer] FDA Start: 02-08-2021 Goals Date Patient Goal Desired Activity /State Mental Status Date Assessment Result Facility 05-16-2025 Cognitive function Voice/Name [facility] Work Phone: 10-29-2023 Cognitive function Voice/Name [facility] Work Phone: 10-23-2022 Cognitive function Voice/Name [facility] Work Phone: 05-08-2022 Cognitive function Voice/Name [facility] Work Phone: Clinical Notes 10-29-2023 to 05-16-2025 Note Date & Type Note Facility 05-16-2025 Discharge summary [facility] 05-16-2025 Radiology Diagnostic study note [facility] Imaging Services [address] [place] [address] Brain/Head without Contrast MR#: [id number] Acct: [id number] Name: PHILIPPEQI A Rep #: [id number] : 1965 F 60 From: Genaro Carrillo MD PCP: Dr. Bret Gomez MD Status: REG ER Study:Brain/Head without Contrast Date of Exa m: 05/16/25 Exam# [id number] Ordering Dr: Ese Scruggs DO EXAM: NONCONTRAST CT SCAN OF THE HEAD CLINICAL HISTORY: Left upper and lower extremity numbness COMPARISON: None TECHNIQUE: Serial axial series through the head were obtained without contrast. 2-D coronaland sagittal reformats were then obtained. FINDINGS: Brain: There is no acute large territorial infarct, intracranial hemorrhage, midline shift or mass effect. The sella and pineal gland regions appear unremarkable. There is no evidence of cerebellar tonsillarherniation. Ventricles: There is no acute hydrocephalus. Basilar cisterns are patent. Paranasal sinuses: Well-aerated Mastoid air cells: Well-aerated. Calvarium: The bony calvarium is intact. Orbits: The bilateral globes are symmetric, without retrobulbar compressive masslesion or hemorrhage. CT/Brain/Head without Contrast IMPRESSION: No acute intracranial pathology. Reading Location: [facility] CC: Dr. Bret Gomez MD; Dr. Aleks Scruggs DO ~ Launch Leader: Signed [facility] 05-16-2025 Discharge summary Note Date/Time May 16, 2025 3:03pm [facility] Medical Records Department [address] [place] [address] Emergency Department Summary 05/16/25 MR#: [id number] Acct: [id number] Name: QI PHILIPPE Rep #:[id number] : 1965 60 From: Aleks Scruggs DO PCP: Dr. Bret Gomez MD Status:[facility] ER Location: ED HPI History of Present Illness Chief Complaint: Chest Pain Narrative Narrative: Patient is a 60-year-old female with past medical history of depression, anxiety, IBS, former smoker, diabetes, hypertension who presents to the emergency department chief complaint of chest pain, nausea and numbness and tingling in her left arm and lower extremity. Patient states that her numbness and tingling going on for last few days as well as her chest pain. States that her chest pain has been progressive worsening she originally had left shoulder discomfort and notes that it has been progressively worsening and is more noticeable. States that she notices this most when she gets up and walks aroundand states it does get better with rest. States that she had a stress test manyyears ago but has not had one since. She states that her family does have a history of heart disease with previous heart attacks and open heart surgeries. [facility] Medical History Abdominal pain Fatty liver High cholesterol Easy bruising History of hiatal hernia History of ulceration Leg cramps Wears glasses Post-menopausal Depression Anxiety Back pain History of IBS Gastric reflux Former smoker History of stress test FH: colon cancer Hx of colonic polyp GERD (gastroesophageal reflux disease) IBS (irritable bowel syndrome) Arthritis Diabetes Chest pain Hypertension Home Medications ?Medication ?Instructions ?Recorded ?Last Taken ?Type lisinopril 20 1 tab PO DAILY 06/11/1404/25 History mg-hydrochlorothiazide 25 mg tablet multivitamin 1 tab PO DAILY 02/06/2104/25 History calcium 600 mg (as 1 tab PO Q12H 05/01/2205/16 History carbonate)-vitamin D3 10 mcg (400 unit) tablet (Calcium 600 + D(3)) metformin 500 mg tablet 250 mg PO BID 10/28/2305/16 History pravastatin 40 mg tablet 40 mg PO QHS 03/21/24 History omeprazole 40 mg capsule,delayed 40 mg PO QDAY #90 cap s 04/15/25 05/16/25 Rx release sucralfate 1 gram tablet 1 g PO TID ulcers #90 tabs 0 04/15/25 05/16/25 Rx Allergy/AdvReac Type Severity Reaction Status Date / Time metronidazole Allergy Mild Rash Verified 05/16/25 11:40 Family History Mother Colon cancer CAD (coronary artery disease) Hypertension Aunt Colon cancer Father CAD (coronary artery disease) Surgical History H/O rotator cuff surgery History of esophagogastroduodenoscopy (EGD) S/P laparoscopic cholecystectomy S/P knee surgery Social History Smoking Status: Former smoker alcohol intake: current alcohol intake frequency: holidays/special occasions only ROS ROS ED ROS Narrative Constitutional: Denies headache, lightness, dizziness, fevers, chills Eyes: Denies change in vision double vision blurry vision Cardiovascular: Complains of chest discomfort denies palpitations Respiratory: Denies cough or wheezing shortness of breath Abdomen: Denies abdominal pain nausea vomiting diarrhea : Denies urinary symptoms Neurological: Complains of left upper and lower extremity numbness and tingling Musculoskeletal: Denies back pain Skin: Denies any rashes or lesions EXAM Physical Exam Narrative Exam Narrative: General: Patient lying in bed rest comfortably did not appear to be in acute distress Head: Atraumatic, normocephalic Eyes: PERRL bilaterally, EOMI bilateral, no conjunctival injection noted Neck: Soft, supple, trachea midline Cardiovascular: Regular rate and rhythm no murmurs gallops rubs noted Respiratory: Clear to auscultation bilaterally no rales rhonchi or wheezes noted Abdomen: Soft, nondistended, nontender to palpation Extremities: +5/5 strength noted in the bilateral upper and lower extremities, radial pulses +2/4 in the bilateral extremities, no pedal edema on exam Neurological: Patient following commands knew that she was at [facility] year is 2024 Skin: Warm, dry, intact no rashes or lesions noted Const Vital Signs: 05/16/25 11:39 05/16/25 12:20 05/16/25 12:38 Temperature 98.1 F Temperature Source Oral Pulse Rate 82 72 Respiratory Rate 19 H 14 Blood Pressure 164/80 H 129/75 H Blood Pressure Mean 108 93 Pulse Ox 100 99 99 Oxygen Delivery Method Room Air Room Air Room Air 05/16/25 13:00 05/16/25 14:00 05/16/25 14:55 Temperature 98.1 F Temperature Source Pulse Rate 65 62 72 Respiratory Rate 14 14 18 Blood Pressure 143/88 H 122/72 H 133/78 H Blood Pressure Mean 106 88 96 Pulse Ox 99 100 99 Oxygen Delivery Method Room Air Room Air MDM MDM MDM Narrative Medical decision making narrative: Patient is a 60-year-old female who presented to the emergency department chief complaint of worsening chest pain as well as numbness and tingling in her left arm and lower extremity as noted above. On the differential diagnose includes but not limited to ACS, stable angina, pneumothorax, pneumonia, intracranial mass, stroke. Once workup is obtained reviewed she will be reevaluated. Patient will not be a stroke alert as she is not a candidate for tenecteplase nor LVO as her symptoms have been going on for days when it comes to the left upper and lower extremity numbness and tingling HEART Score for Major Cardiac Events from [email or web address] on 05/16/2025 All calculations should be rechecked by clinician prior to use RESULT SUMMARY: 5 points Moderate Score (4-6 points) Risk of MACE of 12-16.6%. INPUTS: History ?> 1 = Moderately suspicious EKG ?> 1 = Non-specific repolarization disturbance Age ?> 1 = 45-64 Risk factors ?> 2 = >= risk factors or history of atherosclerotic disease Initial troponin ?> 0 = <=ormal limit Patient CBC reviewed showed no evidence leukocytosis white blood count normal at7.1, he was 13.8, platelet count 328. Patient's sodium was 136, potassium normal 3.6, creatinine normal at 0.74. Patient's troponin was less than 6 with a delta troponin of less than 6 as well. Patient's EKG reviewed and showed sinus rhythm with a rate of 72 bpm with [place] interval 144. Patient's chest x-ray reviewed by myself and by radiology showed no acute cardiopulmonary processes. Patient CT head brain without contrast showed no acute intracranial pathology. At this point time do believe the patient will warrant admission for stress testing given her chest discomfort radiating to her left shoulder that has been progressively worsening especially with exertion getting better with rest as well as this numbness and tingling in the left upper and lower extremity. Will discuss case with hospitalist for admission. Patient given 325 mg aspirin. Discussed case with hospitalist Dr. Yuen who accept patient for admission. Discussed this plan with the patient she is agreeable to plan all questions wereanswered. Lab Data Labs: Laboratory Results - last 24 hr 05/16/25 05/16/25 12:05 13:25 WBC 7.1 RBC 4.77 Hgb 13.8 Hct 41.2 MCV 86.4 MCH 28.9 MCHC 33.5 RDW Std Deviation 37.5 RDW Coeff of Ollie 11.9 Plt Count 328 MPV 9.9 Immature Gran % (Auto) 0.300 Neut % (Auto) 73.0 H Lymph % (Auto) 20.8 Mifflin % (Auto) 5.3 Eos % (Auto) 0.3 Baso % (Auto) 0.3 Absolute Neuts (auto) 5.2 Absolute Lymphs (auto) 1.48 Nucleated RBC % 0 Sodium 136 Potassium 3.6 Chloride 101 Carbon Dioxide 22.0 Anion Gap 13 BUN 13 Creatinine 0.74 Estim Creat Clear Calc 82.38 Est GFR (MDRD) Non-Af 91 BUN/Creatinine Ratio 16.9 Glucose 125 H Calcium 9.6 Troponin T High Sens < 6 Troponin T Hi Sens 2 Hr < 6 Radiography Diagnostic Testing: Clinical Impression(s) from Imaging Studies Chest X-Ray 05/16/25 12:25 IMPRESSION: No acute process is identified in the chest. Reading Location: [facility] Brain CT 05/16/25 13:04 IMPRESSION: No acute intracranial pathology. Reading Location: [facility] Discharge Plan Triage Chief Complaint: Chest Pain ED Provider: Aleks Scruggs Dx/Rx/DC Orders Clinical Impression: Chest pain, Hypertension, IBS (irritable bowel syndrome), Diabetes Prescriptions: No Action multivitamin Tablet 1 tab PO DAILY lisinopril-hydrochlorothiazide 1 TABLET tablet 1 tab PO DAILY Patient Comments: heart/ blood pressure calcium carbonate-vitamin D3 [Calcium 600 + D(3)] 600 mg-10 mcg (400 unit) Tablet 1 tab PO Q12H metformin 500 mg tablet 250 mg PO BID pravastatin 40 mg tablet 40 mg PO QHS omeprazole 40 mg capsule,delayed release(DR/EC) 40 mg PO QDAY Qty: 90 0RF sucralfate 1 gram tablet 1 g PO TID Qty: 90 3RF Primary Care Provider: Bret Gomez Referrals: Bret Gomez MD [Primary Care Provider] - Print Language: Welsh Disposition Disposition: Acute Care Hospital [facility] What to do if you have Problems For any increased pain, shortness of breath, bleeding, nausea or vomiting, chestpain, or any unexpected problems, contact your Primary Care Provider. Call [facility] ([phone]) or report to the closest Emergency Room. Call 911 if necessary. 05/16/25 1503 <Electronically signed by Aleks Scruggs DO> Cosigner Signature (if applicable): CC: Dr. Bret Gomez MD ~ Signed [facility] Work Phone: 1(131) 154-828206-23-2025 Radiology Diagnostic study note [facility] Imaging Services [address] [place], [place] [id number] Chest 1 View (Portable) MR#: [id number] Acct: [id number] Name: QI PHILIPPE Rep #: [id number] : 1965 F 60 From: Genaro Carrillo MD PCP: Dr. Bret Gomez MD Status: PRE ER Study:Chest 1 View (Portable) Date of Exam: 05/16/25 Exam# [id number] Ordering Dr: Provider ,Ed P. PROCEDURE: CHEST 1 VIEW (PORTABLE) 05/16/2025 REASON FOR EXAM: CHEST PAIN TECHNIQUE: Frontal view of the chest. COMPARISON: March 16, 2024 FINDINGS: Heart size and mediastinal configuration are within normal limits. There is no focal infiltrate or consolidation. There is no pneumothorax or effusion. There is no acute bony abnormality. Aortic calcifications are visible. RAD/Chest 1 View (Portable) IMPRESSION: No acute process is identified in the chest. Reading Location: [facility] CC: Dr. Bret Gomez MD; ED PHYSICIAN PROVIDER ~ Launch Leader: Signed [facility]06-11-2025 Evaluation note* Diagnosis Onset Date Resolution Status Admit Date Iliotibial band syndrome of left side acute May 04, 2025 12:49pm Left knee sprain acute April 12:49pm Chest pain acute May 16 3:33pm [facility] Work Phone: 1(151) 855-801608-23-2024 [facility] Medical Records Department [address] [place] [address] History Physical Exam 07/16/24 1305 MR#: [id number] Acct: [id number] Name: QI PHILIPPE Rep #: [id number] : 1965 59 From: Gumaro Sandhu DO PCP: Dr. Bret Gomez MD Status:[facility] Location: [place] [address] History and Physical Date of Admission: 07/16/24 59 F who presents to the office today for FH mother colon cancer Prior workup: ? CT abd/pel 01.25.22 right lung nodule, stable; colonic diverticulosis; moderate colonic fecal material *BGI established 02.12.22 with loose stools RUQ discomfort nausea and flatulence with onset in November. Hyoscyamine ineffective, Lomotil helpful. ? EGD/colonoscopy 05.08.22 EGD irregular Zline; two oozing cratered gastric ulcers. H.Pylori WNL ? Colonoscopy diverticulosis; 5mm TA polyp; congested mucosa OV 05.15.22 start sucralfate and omeprazole. ? Biochemical 05.22.22 CBC, CMP, prolactin, PTHIN, TSH without pertinent abnormality ? Chromogranin A H459.2, gastrin H929 ? LILY 06.10.22 WNL OV 08.28.22 reschedule EGD; LILY scan negative. ? EGD 10.23.22 non-bleeding superficial gastric ulcer. H.Pylori WNL OV 11.06.22 update biochemical results ? Biochemical 11.06.22 gastrin, chromogranin A WNL ? Biochemical 09.01.23 Chromogranin A H584.9, Gastrin H329 ? EGD 10.29.23 gastritis. H.Pylori WNL Contact, 12.10.23 with results. OV 02.13.24 Sx overall improved. Daily BM formed most of time, occasional diarrhea with certain foods. Occasional bloating. Omeprazole 40 mg daily and sucralfate 1 gm PRN for RUQ abdominal pain effective. ROS Const Constitutional: No fatigue, fever(s), frequent falls, headache(s), weakness or weight change ENT ENT: No headache(s) or difficulty swallowing Cardio Cardiology: No leg pain with exertion Gastro GI: Positive for bloating; No abdominal pain, change in bowel habits, constipation, diarrhea, heartburn, difficulty swallowing, excessive flatus, Vomiting blood/hematemesis, Blood in stool, nausea/dyspepsia or vomiting Musc Musculoskeletal: Positive for muscle weakness, stiffness and Arthritis; No joint pain, back pain, joint swelling, muscle cramps, numbness, tingling, sciatica, restless legs, leg pain at night or leg pain with exertion Skin Skin: No dry skin, lesions, itchy eyes or rash Neuro Neurology: No behavioral changes, unsteady gait/balance, weakness, frequent falls, headache(s), numbness, tingling, restless legs, tremor(s), Increased tone in limbs, paralysis or seizures Psych Psychiatric: Positive for anxiety, No behavioral changes, Positive for depression, No paranoia, No Compulsive Behavior, No hyperactivity, No inattentiveness, No obsessions/compulsions, No Temper Tantrums and No suicidal ideation Endo Endocrine: No fatigue or weight change Aller/Imm Allergy/Immunologic: No itchy eyes Neel/Lymp Hematologic/Lymphatic: No easy bleeding or easy bruising Exam Const General: cooperative and healthy appearing Nutritional Appearance: average body habitus Orientation: alert, awake and oriented x3 Quality Reporting Tobacco Screening ([facility]) Smoking Status: Former smoker Assessment and Plan Assessment and Plan (1) Hypergastrinemia: Status: Acute (2) Gastric ulcer: Status: Acute Plan: We discussed EGD and colonoscopy findings and biopsy results. Negative for H pylori. Will treat with one month of sucralfate QID and will have her increase omeprazole 40 mg to BID x 2 mos then back to omeprazole 40 mg daily. Will check gastrin level because ulcers and FH neuroendocrine tumors, pt is very worried about this. (3) Diverticula of colon: Status: Acute Plan: Discussed this diagnosis in detail also. Recommendation is to avoid constipation. (4) GERD (gastroesophageal reflux disease): Status: Acute Plan: as above I have examined the patient and the H P has been reviewed. There are no clinical changes since date of exam. 07/16/24 1306 Cosigner Signature (if applicable): CC: Dr. Bret Gomez MD; DO [facility] Discharge instructions Additional Instructions Please continue your oxycodone as 1 to 2 pills every 4-6 hours for pain control. Add the Ativan up to 3 times a day for improved symptom control and take the gabapentin 3 times a day on a scheduled basis to help control pain. Follow-up with orthopedic surgeon as previously directed and return to the ER should you have any further concerns[facility] Hospital Work Phone: 1(287) 460-552312-06-2023 Procedure [facility] 10-29-2023 Procedure [facility]12-06-2023 History and physical note Author Gumaro Sandhu [facility] October 29, 2023 6:29am Note Date/Time October 29, 2023 6 :29am [facility] Medical Records Department [address] [place] [address] History & Physical Exam 10/29/2328 MR#: [id number] Acct: [id number] Name: QI PHILIPPE Rep #:[id number] : 1965 58 From: Gumaro Friend DO PCP: Dr. Bret Gomez MD Status:[facility] Location: [place] [address] History and Physical Date of Admission: 10/29/23 QI PHILIPPE, is a 57 F who presents to the office today for discussion of EGDfindings. Repeat EGD was indicated for gastric ulcers which were diagnosed on 05/08/22 EGD; treated with PPI increased to BID dosing x 2 mos and sucralfate x 1month. Ulcers due to NSAIDs. Her symptoms--nausea, belching, abdominal pain, diarrhea--resolved with treatment. On 09/2022 EGD she had normal esophagus, one tiny 1 mm nonbleeding gastric ulcer, negative H pylori, gastritis. She is asymptomatic now. Hypergastrinemia -- 05/22/22 gastrin 929 (0-115), chromogranin A 459 (0-101). [place] to be elevated due to PPI. Her 06/10/22 octreotide scan was negative for neuroendocrine tumor. She initially presented 01/2022 with diarrhea, RUQ pain, and nausea. Her symptomsbegan in November 2021.? Her motrin was stopped and she was put on omeprazole. 04/2022 EGD revealed oozing gastric ulcers. 04/2022 colonoscopy revealed diverticular disease and tubular adenoma; repeat colonoscopy 04/2027. Gastrin andchromagranin A were elevated, but octreotide scan was negative. There is a FH carcinoid--mother in colon, aunt in appendix. 10/23/22 EGD Impression: ? - Normal esophagus. ? - Normal stomach. ? - Non-bleeding gastric ulcer with no stigmata ? of bleeding. 1 mm. Biopsied. ? - Normal second portion of the duodenum. MICROSCOPIC DIAGNOSIS Gastric ulcer, biopsy: Chronic gastritis. Negative H pylori ROS Const Constitutional: No fatigue ENT ENT: No difficulty swallowing Gastro GI: Positive for bloating, heartburn and excessive flatus; No abdominal pain, belching, change in bowel habits, change in stool character, coffee ground emesis, constipation, cramping, diarrhea, difficulty swallowing, feeling full early, incontinent of stools, Vomiting blood/hematemesis, Blood in stool, loose stools, Black,tarry stools, nausea/dyspepsia, pain with swallowing,vomiting or other Musc Musculoskeletal: Positive for joint pain and back pain Skin Skin: No yellowing of the eye or itchy eyes Psych Psychiatric: No anxiety and No depression Endo Endocrine: No fatigue Aller/Imm Allergy/Immunologic: No itchy eyes Neel/Lymp Hematologic/Lymphatic: No easy bleeding or easy bruising Exam Const General: cooperative and healthy appearing Nutritional Appearance: average body habitus Orientation: alert, awake and oriented x3 Quality Reporting Tobacco Screening ([facility]) Smoking Status: Former smoker Assessment and Plan Assessment and Plan (1) Hypergastrinemia: Status: Acute Plan: We reviewed EGD findings, good improvement, no worrisome findings. We will update gastrin and chromogranin A levels, will call her with results. She will need surveillance EGD to make sure that the ulcer is all way healed in its entirety. Orders: Orders Gastrin, Serum Today E16.4 - Increased secretion of gastrin Miscellaneous Lab Procedure Today E16.4 - Increased secretion of gastrin I have examined the patient and the H&P has been reviewed. There are no clinicalchanges since date of exam. 10/29/23628 <Electronically signed by Gumaro Sandhu DO> Cosigner Signature (if applicable): CC: Dr. Bret Gomez MD; Gumaro Sandhu DO~ Signed [facility] Work Phone: Evaluation note* Diagnosis Onset Date Resolution Status Diarrhea acute FH: colon cancer acute GERD (gastroesophageal reflux disease) acute Hx of colonic polyp acute RUQ pain acute Diverticula of colon acute Gastric ulcer acute GERD (gastroesophageal reflux disease) acute [facility] Work Phone: Evaluation note* Diagnosis Onset Date Resolution Status Diverticula of colon acute Gastric ulcer acute GERD (gastroesophageal reflux disease) acute [facility] Work Phone: Evaluation note* Diagnosis Onset Date Resolution Status Gastric ulcer acute Hypergastrinemia acute [facility] Work Phone: Evaluation noteNo assessment information available [facility] Work Phone: Evaluation note* Diagnosis Onset Date Resolution Status Diverticula of colon acute Gastric ulcer acute GERD (gastroesophageal reflux disease) acute Hypergastrinemia acute [facility] Work Phone: [facility] Work Phone: Reason for referral (narrative)No reason for referral information [facility] Work Phone: Summary Purpose Family History Relationship Condition Age at Onset Recorded Date/T pao mother Malignant neoplasm of colon Unknown Coronary artery disease Unknown Hypertension Unknown aunt Malignant neoplasm of colon Unknown father Coronary artery disease Unknown Advance Directives Advance Directive Response Recorded Date/ Time Advance Directives No June 11 4:14pm Living Will No May 01, 2022 3 :20pm Power of Heel Gummer No May 01, 2022 3:20pm Advance Directive Response Recorded Date/ Time Advance Directives No June 11 3:14pm Living Will No October 18, 022 11:21am Power of Heel Gummer No October 18, 2022 11:21am Advance Directive Response Recorded Date/ Time Advance Directives No June 11 4:14pm Living Will No October 18, 022 12:21pm Power of Heel Gummer No October 18, 2022 12:21pm Advance Directive Response Recorded Date/ Time Advance Directives No June 11 3:14pm Living Will No October 28 8:49am Power of Heel Gummer No October 28, 2023 8:49am Advance Directive Response Recorded Date/ Time Advance Directives No June 11 4:14pm Living Will No October 28 9:49am Power of Heel Gummer No October 28, 2023 9:49am Advance Directive Response Recorded Date/ Time Advance Directives No June 11 4:14pm Living Will No March 21, 2024 3:32am Power of Heel Gummer No March 21 3:32am Advance Directive Response Recorded Date/ Time Advance Directives No June 11 4:14pm Advance Directive Response Recorded Date/ Time Do you have a Healthcare Power of Heel Gummer? No May 16, 2025 12:21pm Advance Directives No Katy 19th, 20 14 4:14pm Chief Complaint and Reason for Visit Chief Complaint ABD PAIN X1 MONTH DIVERTICULOSIS 2 WK FU E-ORDER Reason for Visit Diarrhea FH: colon cancer GERD (gastroesophageal reflux disease) Hx of colonic polyp RUQ pain Diverticula of colon Gastric ulcer GERD (gastroesophageal reflux disease) Chief Complaint DIVERTICULOSIS 2 WK FU E-ORDER INT LABS Reason for Visit Diarrhea FH: colon cancer GERD (gastroesophageal reflux disease) Hx of colonic polyp RUQ pain Diverticula of colon Gastric ulcer GERD (gastroesophageal reflux disease) Chief Complaint 2 WK FU E-ORDER INT LABS INCREASED SECRETION OF GASTRIN Reason for Visit Diverticula of colon Gastric ulcer GERD (gastroesophageal reflux disease) Chief Complaint 2 MO FU SCREENING ASMPTOMATIC MENOPAUSAL STATE Reason for Visit Gastric ulcer Hypergastrinemia Chief Complaint E ORDERS Chief Complaint E ORDERS SCREEN Chief Complaint 2 WK FU R SHOULDER RX HERE Reason for Visit Diverticula of colon Gastric ulcer GERD (gastroesophageal reflux disease) Hypergastrinemia Chief Complaint 2 WK FU R SHOULDER RX HERE RT SHOULDER LABREAL TEAR/ROTATOR CUFF Reason for Visit Diverticula of colon Gastric ulcer GERD (gastroesophageal reflux disease) Hypergastrinemia Chief Complaint 2 WK FU R SHOULDER RX HERE RT SHOULDER LABREAL TEAR/ROTATOR CUFF Pre-Surgical Testing PREOP pain in shouler Reason for Visit Diverticula of colon Gastric ulcer GERD (gastroesophageal reflux disease) Hypergastrinemia Chief Complaint Admit Date LEFT KNEE May 04, 2025 12:4 9pm Room 3 May 04, 2025 1:07 pm Chief Complaint Admit Date LEFT KNEE May 04, 2025 12:4 9pm Room 3 May 04, 2025 1:07 pm CHEST PAIN May 16, 2025 3:33 pm Reason for Visit Admit Date Iliotibial band syndrome of left side Ju ne 2024 12:49pm Left knee sprain May 04, 2025 12:4 9pm Chest pain May 16, 2025 3:33 pm Additional Source Comments INFORMATION SOURCE (unrecogn ized section and content) DATE CREATED AUTHOR 04/07/2020 [employer] DATE CREATED AUTHOR AUTHOR'S ORGANIZ ATION 05/06/2025 [facility] Care Teams (unrecognized sec tion and content) Team Status: Active Member Role Status Dates Dr. Bret Gomez MD Primary Care Provider Active Team Status: Inactive Member Role Status Dates Dr. Bret Gomez MD Primary Care Provider Active Start: May 04, 2025 End: May 04, 2025 Dr. Bret Gomez MD Referring Provider Active St art: May 04, 2025 End: May 04, 2025 Coty Orourke NP-C Attending Provider Active Start: May 04, 2025 End: May 04, 2025 Team Status: Inactive Member Role Status Dates Dr. Bret Gomez MD Primary Care Provider Active Start: May 04, 2025 End: May 04, 2025 Dr. Kaiser Cee MD Attending Provider Active S tart: May 04, 2025 End: May 04, 2025 Team Status: Active Member Role Status Dates Dr. Bret oGmez MD Primary Care Provider Active Start: May 16, 2025 Dr. Aleks Scruggs DO Emergency Provider Active Start: May 16, 2025 Dr. Marilin Yuen MD Admit Provider Active Star t: May 16, 2025 Dr. Marilin Yuen MD Attending Provider Active Start: May 16, 2025 Team Status: Active Member Role Status Dates Dr. Bret Gomez MD Family Provider Active Dr. Bret Gomez MD Primary Care Provider Active Team Status: Inactive Member Role Status Dates Dr. Bret Gomze MD Primary Care Provider, Attending P rovider Active Team Status: Inactive Member Role Status Dates Dr. Bret Gomez MD Primary Care Provider Active Dr. Gumaro Sandhu DO Attending Provider, Referring Provider Active Team Status: Active Member Role Status Dates Dr. Bret Gomez MD Primary Care Provider, Referring P rovider Active Dr. Gumaro Sandhu DO Attending Provider, Other Prov ider Active Team Status: Active Member Role Status Dates Dr. Bret Gomez MD Primary Care Provide r, Attending Provider, Referring Provider Active Team Status: Inactive Member Role Status Dates Dr. Bret Gomez MD Primary Care Provider, Referring P rovider Active Dr. Gumaro Sandhu DO Attending Provider Active Team Status: Inactive Member Role Status Dates Dr. Bret Gomez MD Primary Care Provide r, Attending Provider, Referring Provider Active Team Status: Active Member Role Status Dates Dr. Bret Gomez MD Primary Care Provider Active [facility] Attending Provider, Referring Pr ovider Active Team Status: Inactive Member Role Status Dates Dr. Bret Gomez MD Primary Care Provider Active [facility]ultzC Attending Provider, Referr ing Provider Active Team Status: Active Member Role Status Dates Dr. Bret Gomez MD Primary Care Provider Active Dr. Marie Aiken MD Attending Provider Activ e Dr. Too Bingham MD Referring Provider Active Team Status: Inactive Member Role Status Dates Dr. Bret Gomez MD Primary Care Provider Active Dr. Too Bingham MD Attending Provider, Referring P maco Active Team Status: Inactive Member Role Status Dates Dr. Bret Gomez MD Primary Care Provider Active Dr. Esau Tomas DO Emergency Provider Active Team Status: Active Member Role Status Dates Dr. Bret Gomez MD Primary Care Provider Active Start: May 04, 2025 Dr. Bret Gomez MD Referring Provider Active St art: May 04, 2025 NICOLE Patterson Attending Provider Active Start: May 04, 2025 Team Status: Inactive Member Role Status Dates Dr. Bret Gomez MD Primary Care Provider Active Start: May 04, 2025 End: May 04, 2025 Dr. Kaiser Cee MD Attending Provider Active S tart: May 04, 2025 End: May 04, 2025 Team Status: Inactive Member Role Status Dates Dr. Bret Gomez MD Primary Care Provider Active Start: May 04, 2025 End: May 04, 2025 Dr. Bret Gomez MD Referring Provider Active St art: May 04, 2025 End: May 04, 2025 NICOLE Patterson Attending Provider Active Start: May 04, 2025 End: May 04, 2025 Team Status: Active Member Role Status Dates Dr. Bret Gomez MD Primary Care Provider Active Team Status: Active Member Role Status Dates Dr. Bret Gomez MD Primary Care Provider Active Start: May 16, 2025 Dr. Aleks Scruggs DO Emergency Provider Active Start: May 16, 2025 Dr. Marilin Yuen MD Admit Provider Active Star t: May 16, 2025 Dr. Marilin Yuen MD Attending Provider Active Start: May 16, 2025 Goals (unrecognized section and content) Goals may be documented in a n alternate sectionGoals may be documented in an alternate sectionGoals may be documented in an alternate sectionGoals may be documented in an alternate sectionGoals may be documented in an alternate sectionGoals may be documented in an alternate sectionGoals may be documented in an alternate sectionGoals may be documented in an alternate section FOR RECORDS PERTAINING TO PATIENTS WHO ARE OR HAVE BEEN ENROLLED IN A CHEMICAL DEPENDENCY/SUBSTANCEABUSE PROGRAM, SOME INFORMATION MAY BE OMITTED. This clinical summary was aggregated from multiple sources. Caution should be exercised in using it in the provision of clinical care. This summary normalizes information from multiple sources, and as a consequence, information in this document may materially change the coding, format and clinical context of patient data. In addition, data may be omitted in some cases. CLINICAL DECISIONS SHOULD BE BASED ON THE PRIMARY CLINICAL RECORDS. [facility] [employer] [facility]. provides no warranty or guarantee of the accuracy or completeness of information in this document.
--- OUTSIDE RECORDS SUMMARY | 2025-05-16 23:15 | XMS RPT_ITS | CCD ---
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 Bret Gomez Primary Care Provider Dr. Bret Gomez Referring Provider [phone] Stephanie ADVERTISING SPECIALIST, ADVERTISING SPECIALIST-C Alessandra Boothe Attending Provider [phone] Dr. Gumaro Sandhu Attending Provider [phone] Dr. Gumaro Sandhu Other Provider [phone] Bret Gomez Primary Care Provider Dr. Bret Gomez Referring Provider [phone] Stephanie ADVERTISING SPECIALIST, ADVERTISING SPECIALIST-C Alessandra Boothe Attending Provider [phone] Dr. Bret Gomez Primary Care Provider Dr. Bret Gomez Referring Provider Stephanie ADVERTISING SPECIALIST, ADVERTISING SPECIALIST-C Alessandra Boothe Attending Provider [phone] Dr. Gumaro Sandhu Attending Provider Dr. Gumaro Sandhu Other Provider [phone] Brte Gomez Primary Care Provider [phone] Dr. Bret Gomez Referring Provider [phone] [...] Attending Provider Dr. Marie Aiken Attending Provider Dr. Too Bingham Referring Provider Jason WILL, Dr. Queen Primary Care Provider Dr. Bret Gomez MD Referring Provider Sharad ADVERTISING SPECIALIST-C, Coty Attending Provider Coleman WILL, Dr. Saab [...] Attending Unavailable Friend, Gumaro Referring Unavailable McMorrow ADVERTISING SPECIALIST, Ras Attending Unavailable Gomez, Bret Primary Care [...] Unavailable Dr. Aleks Scruggs DO Emergency Provider Wilfrid WILL, Dr. Gaston Admit Provider [phone] Wilfrid WILL, Dr. Gaston Attending Provider Allergies Allergy Classification Reported Allergen(s) Allergy Type Date of Onset Reaction(s) Facility (15 sources) [facility] Allergy 05-15-2022 Rash [facility] (1 source) [facility] Drug Allergy 05-04-2025 [facility] Repository Medications Current Medications Medication Drug Class(es) [...] (Unsp spec) [#/Vol] 1.48 10*3/uL 0.83-4.51 [facility] Absolute neutrophil countOrd ered By: ED PROVIDER on 05-16-2025 Neutrophils (Bld) [#/Vol] 5.2 10*3/uL 2.0-7.7 [facility] Anion gap in Serum or Plasma Ordered By: Aleks Scruggs on 05-16-2025 Anion gap [Moles/Vol] 13 mmol/L 5-15 [facility] Automated lymphocyte count a s percentage of total leukocytesOrdered By: ED PROVIDER on 05-16-2025 Lymphocytes/100 WBC Auto (Unsp spec) 20.8 % 19-41 [facility] BUN/creatinine ratioOrdered By: Aleks Scruggs on 05-16-2025 Urea nitrogen/Creatinine [Mass ratio] 16.9 mg/mg 10-20 [facility] Basophil percentageOrdered B y: ED PROVIDER on 05-16-2025 Basophils/100 WBC (Bld) 0.3 % 0-1 [facility] Carbon dioxide, total [Moles /volume] in Central venous bloodOrdered By: Aleks Scruggs on 05-16-2025 CO2 [Moles/Vol] 22.0 mmol/L 21.0-32.0 [facility] Chloride assayOrdered By: Juan Alberto Scruggs on 05-16-2025 Chloride [Moles/Vol] 101 mmol/L 98-108 [facility] Eosinophil percentageOrdered By: ED PROVIDER on 05-16-2025 Eosinophils/100 WBC (Bld) 0.3 % 0-5 [facility] Erythrocyte distribution wid th ratioOrdered By: ED PROVIDER on 05-16-2025 Erythrocyte distribution width (RBC) [Ratio] 11.9 % 11.6-14.6 [facility] Erythrocyte distribution wid th standard deviationOrdered By: ED PROVIDER on 05-16-2025 Erythrocyte distribution width (RBC) [Ratio] 37.5 fl 35.1-43.9 [facility] Glomerular filtration rate ( GFR) estimation/1.73 sq m using serum, plasma, or whole bOrdered By: Aleks Scruggs on 05-16-2025 GFR/1.73 sq M.predicted among non-blacks MDRD (S/P/Bld) [Vol rate/Area] 91 mL/min/{1.73_m2} >60 [facility] Comment on above: mL/min/1.73m2 CKD-EP I Creatinine Equation (2020) Hematocrit Auto (Bld) [Volum e fraction]Ordered By: ED PROVIDER on 05-16-2025 Hematocrit (Bld) [Volume fraction] 41.2 % 37-47 [facility] Hemoglobin measurementOrdere d By: ED PROVIDER on 05-16-2025 Hemoglobin (Bld) [Mass/Vol] 13.8 g/dL 12.0-15.0 [facility] Immature granulocytes/100 WB C Auto (Bld)Ordered By: ED PROVIDER on 05-16-2025 Immature granulocytes/100 WBC (Bld) 0.300 % 0.0-0.9 [facility] Comment on above: IG% - Immature Granu locytes (promyelocytes, myelocytes and metamyelocytes) > 1% indicates that a LEFT SHIFT is Present. MCV (mean corpuscular volume ) determinationOrdered By: ED PROVIDER on 05-16-2025 MCV (RBC) [Entitic vol] 86.4 fL 81-99 [facility] Mean corpuscular hemoglobin (MCH) determinationOrdered By: ED PROVIDER on 05-16-2025 MCH (RBC) [Entitic mass] 28.9 pg 27.0-32.0 [facility] Mean corpuscular hemoglobin concentration (MCHC) determinationOrdered By: ED PROVIDER on 05-16-2025 MCHC (RBC) [Mass/Vol] 33.5 g/dL 32-36 [facility] Mean platelet volume determi nationOrdered By: ED PROVIDER on 05-16-2025 Platelet mean volume (Bld) [Entitic vol] 9.9 fL 6.2-12.0 [facility] Monocyte percentageOrdered B y: ED PROVIDER on 05-16-2025 Monocytes/100 WBC (Bld) 5.3 % 0-10 [facility] Neutrophil percentageOrdered By: ED PROVIDER on 05-16-2025 Neutrophils/100 WBC (Bld) 73.0 % High 47-70 [facility] Nucleated red blood cell per centageOrdered By: ED PROVIDER on 05-16-2025 Nucleated RBC/100 WBC (Bld) [Ratio] 0 % 0-5 [facility] Platelet countOrdered By: ED PROVIDER on 05-16-2025 Platelets (Bld) [#/Vol] 328 10*3/uL 150-450 [facility] Potassium measurement (mass/ volume)Ordered By: Aleks Scruggs on 05-16-2025 Potassium (Unsp spec) [Mass/Vol] 3.6 mmol/L 3.3-5.1 [facility] RBC Auto (Bld) [#/Vol]Ordere d By: ED PROVIDER on 05-16-2025 RBC (Bld) [#/Vol] 4.77 10*6/uL 4.2-5.4 [facility] Serum creatinine measurement (mass/volume)Ordered By: Aleks Scruggs on 05-16-2025 Creatinine [Mass/Vol] 0.74 mg/dL 0.70-1.20 [facility] Serum glucose measurement (m ass/volume)Ordered By: Aleks Scruggs on 05-16-2025 Glucose [Mass/Vol] 125 mg/dL High 70-99 [facility] Serum or plasma calcium kassandra urement (mass/volume)Ordered By: Aleks Scruggs on 05-16-2025 Calcium [Mass/Vol] 9.6 mg/dL 7.6-11.0 [facility] Serum or plasma urea nitroge n measurement (mass/volume)Ordered By: Aleks Scruggs on 05-16-2025 Urea nitrogen [Mass/Vol] 13 mg/dL 4-19 [facility] Sodium levelOrdered By: Alex Scruggs on 05-16-2025 Sodium [Moles/Vol] 136 mmol/L 133-145 [facility] Troponin T.cardiac [Mass/vol ume] in Serum or Plasma by High sensitivity methodOrdered By: Aleks Scruggs on 05-16-2025 Troponin T.cardiac High sensitivity method [Mass/Vol] < 6 ng/L <14 [facility] Troponin T.cardiac High sensitivity method [Mass/Vol] < 6 ng/L <14 [facility] White blood cell (WBC) count Ordered By: ED PROVIDER on 05-16-2025 WBC (Bld) [#/Vol] 7.1 10*3/uL 4.4-11.0 [facility] Knee 4 or More Viewson 05-[address] [facility] [address] [place] [address] Knee 4 or More Views MR#: [id number] Acct: [id number] Name: QI PHILIPPE Rep #: [id number] : 1965 F 60 From: Augustus Helton MD PCP: Dr. Bret Gomez MD Status: DEP AMB Study: Knee 4 or More Views Date of Exam: 05/04/25 Exam# [id number] Ordering Dr: Coty Orourke PROCEDURE: KNEE 4 [...] osteoarthrosis. No acute osseous abnormalities. Reading Location: [id number] CC: NICOLE Orourke; Dr. 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 Part of today???s visit was documented by [...] on for 2 weeks. She was in [place] hiking and visiting. Patient felt it pop and crack. She didn't feel pain with the popping or cracking. When she felt the pop she was having trouble walking on her knee. Patient went to [facility] right after to get a knee brace to give her more support. Over the past couple weeks it has been getting better. Patient states that she has tore her ACL 4 times in the past. Patient had Arthroscopic surgery 20 years on the left knee. She got her surgery done right at the [facility]. Moving the left knee a certain way [...] U (more content not included)... Normal [facility] PAP IG HPV HR APTIMAon 10-29 ADEQ Comment Normal . [facility] Comment on above: Order Comment: Speci men Comment: [id number] Comment: Source.............Cervix;EndocervixSpecimen Comment: No. of containers..01 ThinPrep Vial Result Comment: Spec imen processed and examined but unsatisfactory for evaluation of epithelial abnormality because of insufficient cellularity. Performed By: #### L 7400.0377 ####[facility] [address] [place], [address] COMM . Normal . [facility] Comment on above: Order Comment: Speci men Comment: [id number] Comment: Source.............Cervix;EndocervixSpecimen Comment: No. of containers..01 ThinPrep Vial Performed By: #### L 7400.0377 ####[facility] [address] [place], [place], [id number] COMMENT Comment Normal . [facility] Comment on above: Order Comment: Speci men Comment: [id number] Comment: Source.............Cervix;EndocervixSpecimen Comment: No. of containers..01 ThinPrep Vial Result Comment: This liquid based ThinPrep(R) pap test was screened with the use of an image guided system. Performed By: #### L 7400.0377 ####[facility] [address] [place], [place], [id number] DIAG Comment Normal . [facility] Comment on above: Order Comment: Speci men Comment: [id number] Comment: Source.............Cervix;EndocervixSpecimen Comment: No. of containers..01 ThinPrep Vial Result Comment: UNSA TISFACTORY FOR EVALUATION. Performed By: #### L 7400.0377 ####[facility] [address] [place], [place], [id number] HPV APTIMA, HR Negative Normal Negative [facility] Comment on above: Order Comment: Speci men Comment: [id number] Comment: Source.............Cervix;EndocervixSpecimen Comment: No. of containers..01 ThinPrep Vial Result Comment: This nucleic acid amplification test detects fourteen high- risk HPV types (16,18,31,33,35,39,45,51,52,56,58,59,66,68) without differentiation. Performed at: [facility] [employer] [address] [place] [id number] Child Nutrition Assistant: Johnie Douglas MD, Phone: [phone] Performed at: [address] [id number] Child Nutrition Assistant: Sharonda Burgess MD, Phone: [phone] Performed at: =[facility] [id number] Child Nutrition Assistant: Sharonda Burgess MD, Phone: [phone] Performed By: #### L 7400.0377 ####[facility] [address] [place], [place], [id number] PAPSMR Comment Normal . [facility] Comment on above: Order Comment: Speci men Comment: [id number] Comment: Source.............Cervix;EndocervixSpecimen Comment: No. of containers..01 ThinPrep [...] occur. Performed By: #### L 7400.0377 ####[facility] [address] [place], [place], [address] PERFORM Comment Normal . [facility] Comment on above: Order Comment: Speci men Comment: [id number] Comment: Source.............Cervix;EndocervixSpecimen Comment: No. of containers..01 ThinPrep Vial Result Comment: Yokasta Webster, Ladies' Locker Room Attendant (ASCP) Performed By: #### L 7400.0377 ####[facility] [address] [place], [place], [address] QC REV Comment Normal . [facility] Comment on above: Order Comment: Speci men Comment: [id number] Comment: Source.............Cervix;EndocervixSpecimen Comment: No. of containers..01 ThinPrep Vial Result Comment: Cedrick Peralta, Ladies' Locker Room Attendant (ASCP) Performed By: #### L 7400.0377 ####[facility] [address] [place], [place], [id number] RECOMM Comment Normal . [facility] Comment on above: Order Comment: Speci men Comment: [id number] Comment: Source.............Cervix;EndocervixSpecimen Comment: No. of containers..01 ThinPrep Vial Result Comment: Sugg est follow up as clinically appropriate. Performed By: #### L 7400.0377 ####[facility] [address] [place], [place], [id number] CBC W/Diff, Automatedon 11-0 -2023 Absolute Lymph 1.73 X10 3/uL Normal 0.83-4.51 [facility] Comment on above: Order Comment: Order Date: 09/27/24Order Info: 0184-1 - CBCD Performed By: #### L 7000.0700, M100.0605, L7000.0300, M100.7900, L7000.0750, M7400.3302, M600.5000, M100.637 #### [facility] [address] [place], [address] Absolute Neut 9.4 X10 3/uL High 2.0-7.7 [facility] Comment on above: Order Comment: Order Date: 09/27/24Order Info: 018-1 - CBCD Performed By: #### L 7000.0700, M100.0605, L7000.0300, M100.7900, L7000.0750, M7400.3302, M600.5000, M100.637 #### [facility] [address] [place], [place], [address] ([phone] Basophils/100 WBC (Bld) 0.2 % Normal 0-1 [facility] Comment on above: Order Comment: Order Date: 09/27/24Order Info: 0184-1 - CBCD Performed By: #### L 7000.0700, M100.0605, L7000.0300, M100.7900, L7000.0750, M7400.3302, M600.5000, M100.637 #### [facility] [address] [place], [address] Eosinophils/100 WBC (Bld) 1.3 % Normal 0-5 [facility] Comment on above: Order Comment: Order Date: 09/27/24Order Info: 0184-1 - CBCD Performed By: #### L 7000.0700, M100.0605, L7000.0300, M100.7900, L7000.0750, M7400.3302, M600.5000, M100.637 #### [facility] [address] [place], [place], [address] (100) Erythrocyte distribution width (RBC) [Ratio] 11.9 % Normal 11.6-14.6 [facility] Comment on above: Order Comment: Order Date: 09/27/24Order Info: 0184-1 - CBCD Performed By: #### L 7000.0700, M100.0605, L7000.0300, M100.7900, L7000.0750, M7400.3302, M600.5000, M100.637 #### [facility] [address] [place], [address] Hematocrit (Bld) [Volume fraction] 44.0 % Normal 37-47 [facility] Comment on above: Order Comment: Order Date: 09/27/24Order Info: 0184-1 - CBCD Performed By: #### L 7000.0700, M100.0605, L7000.0300, M100.7900, L7000.0750, M7400.3302, M600.5000, M100.637 #### [facility] [address] [place], [address] Hemoglobin (Bld) [Mass/Vol] 14.0 g/dL Normal 12.0-15.0 [facility] Comment on above: Order Comment: Order Date: 09/27/24Order Info: 0184-1 - CBCD Performed By: #### L 7000.0700, M100.0605, L7000.0300, M100.7900, L7000.0750, M7400.3302, M600.5000, M100.637 #### [facility] [address] [place], [address] IG% 0.300 Normal 0.0-0.9 [facility] Comment on above: Order Comment: Order Date: 09/27/24Order Info: 0184-1 - CBCD Result Comment: IG% - Immature Granulocytes (promyelocytes, myelocytes and metamyelocytes) > 1% indicates that a LEFT SHIFT is Present. Performed By: #### L 7000.0700, M100.0605, L7000.0300, M100.7900, L7000.0750, M7400.3302, M600.5000, M100.637 #### [facility] [address] [place], [address] Lymphocytes/100 WBC (Bld) 14.4 % Low 19-41 [facility] Comment on above: Order Comment: Order Date: 09/27/24Order Info: 0184-1 - CBCD Performed By: #### L 7000.0700, M100.0605, L7000.0300, M100.7900, L7000.0750, M7400.3302, M600.5000, M100.637 #### [facility] [address] [place], [address] MCH (RBC) [Entitic mass] 28.9 pg Normal 27.0-32.0 [facility] Comment on above: Order Comment: Order Date: 09/27/24Order Info: 0184-1 - CBCD Performed By: #### L 7000.0700, M100.0605, L7000.0300, M100.7900, L7000.0750, M7400.3302, M600.5000, M100.637 #### [facility] [address] [place], [address] MCHC (RBC) [Mass/Vol] 31.8 g/dL Low 32-36 [facility] Comment on above: Order Comment: Order Date: 09/27/24Order Info: 0184-1 - CBCD Performed By: #### L 7000.0700, M100.0605, L7000.0300, M100.7900, L7000.0750, M7400.3302, M600.5000, M100.637 #### [facility] [address] [place], [address] MCV (RBC) [Entitic vol] 90.7 fL Normal 81-99 [facility] Comment on above: Order Comment: Order Date: 09/27/24Order Info: 0184-1 - CBCD Performed By: #### L 7000.0700, M100.0605, L7000.0300, M100.7900, L7000.0750, M7400.3302, M600.5000, M100.637 #### [facility] [address] [place], [address] Monocytes/100 WBC (Bld) 5.7 % Normal 0-10 [facility] Comment on above: Order Comment: Order Date: 09/27/24Order Info: 0184- - CBCD Performed By: #### L 7000.0700, M100.0605, L7000.0300, M100.7900, L7000.0750, M7400.3302, M600.5000, M100.637 #### [facility] [address] [place], [address] Neutrophils/100 WBC (Bld) 78.1 % High 47-70 [facility] Comment on above: Order Comment: Order Date: 09/27/24Order Info: 0184-1 - CBCD Performed By: #### L 7000.0700, M100.0605, L7000.0300, M100.7900, L7000.0750, M7400.3302, M600.5000, M100.637 #### [facility] [address] [place], [address] Nucleated RBC (Bld) [#/Vol] 0 10*3/uL Normal 0-5 [facility] Comment on above: Order Comment: Order Date: 09/27/24Order Info: 0184-1 - CBCD Performed By: #### L 7000.0700, M100.0605, L7000.0300, M100.7900, L7000.0750, M7400.3302, M600.5000, M100.637 #### [facility] [address] [place], [address] Platelet mean volume (Bld) [Entitic vol] 10.5 fL Normal 6.2-12.0 [facility] Comment on above: Order Comment: Order Date: 09/27/24Order Info: 0184-1 - CBCD Performed By: #### L 7000.0700, M100.0605, L7000.0300, M100.7900, L7000.0750, M7400.3302, M600.5000, M100.637 #### [facility] [address] [place], [address] Platelets (Bld) [#/Vol] 333 10*3/uL Normal 150-450 [facility] Comment on above: Order Comment: Order Date: 09/27/24Order Info: 0184-1 - CBCD Performed By: #### L 7000.0700, M100.0605, L7000.0300, M100.7900, L7000.0750, M7400.3302, M600.5000, M100.637 #### [facility] [address] [place], [address] RBC (Bld) [#/Vol] 4.85 10*6/uL Normal 4.2-5.4 [facility] Comment on above: Order Comment: Order Date: 09/27/24Order Info: 0184-1 - CBCD Performed By: #### L 7000.0700, M100.0605, L7000.0300, M100.7900, L7000.0750, M7400.3302, M600.5000, M100.637 #### [facility] [address] [place], [address] RDW SD 39.4 fl Normal 35.1-43.9 [facility] Comment on above: Order Comment: Order Date: 09/27/24Order Info: 0184-1 - CBCD Performed By: #### L 7000.0700, M100.0605, L7000.0300, M100.7900, L7000.0750, M7400.3302, M600.5000, M100.637 #### [facility] [address] [place], [place], [address] WBC (Bld) [#/Vol] 12.0 10*3/uL High 4.4-11.0 [facility] Comment on above: Order Comment: Order Date: 09/27/24Order Info: 0184-1 - CBCD Performed By: #### L 7000.0700, M100.0605, L7000.0300, M100.7900, L7000.0750, M7400.3302, M600.5000, M100.637 #### [facility] [address] [place], [place], [address] Comprehensive Metabolic Prof ilon 09-27-2024 Albumin [Mass/Vol] 4.3 g/dL Normal 3.2-5.0 [facility] Comment on above: Order Comment: Order Date: 09/27/24Order Info: 0786-1 - CMPOrder Info: [id number] - LIPIDComments: non-fastingOrder Info: 3016-3 - TSHnon-fasting Performed By: #### L 7000.0700, M100.0605, L7000.0300, M100.7900, L7000.0750, M7400.3302, M600.5000, M100.637 #### [facility] [address] [place], [place], [address] Albumin/Globulin [Mass ratio] 1.2 {ratio} Normal 0.9-2.4 [facility] Comment on above: Order Comment: Order Date: 09/27/24Order Info: 0786-1 - CMPOrder Info: [id number] - LIPIDComments: non-fastingOrder Info: 3016-3 - TSHnon-fasting Performed By: #### L 7000.0700, M100.0605, L7000.0300, M100.7900, L7000.0750, M7400.3302, M600.5000, M100.637 #### [facility] [address] [place], [address] ALK P 69 U/L Normal 45-117 [facility] Comment on above: Order Comment: Order Date: 09/27/24Order Info: 0786-1 - CMPOrder Info: [id number] - LIPIDComments: non-fastingOrder Info: 3015-3 - TSHnon-fasting Performed By: #### L 7000.0700, M100.0605, L7000.0300, M100.7900, L7000.0750, M7400.3302, M600.5000, M100.637 #### [facility] [address] [facility] [place], [place], [address] ALT [Catalytic activity/Vol] 31 U/L Normal 13-56 [facility] Comment on above: Order Comment: Order Date: 09/27/24Order Info: 0786-1 - CMPOrder Info: [id number] - LIPIDComments: non-fastingOrder Info: 3016-01 - TSHnon-fasting Performed By: #### L 7000.0700, M100.0605, L7000.0300, M100.7900, L7000.0750, M7400.3302, M600.5000, M100.637 #### [facility] [address] [place], [address] AST [Catalytic activity/Vol] 24 U/L Normal 15-37 [facility] Comment on above: Order Comment: Order Date: 09/27/24Order Info: 0786-1 - CMPOrder Info: [id number] - LIPIDComments: non-fastingOrder Info: 3 - TSHnon-fasting Performed By: #### L 7000.0700, M100.0605, L7000.0300, M100.7900, L7000.0750, M7400.3302, M600.5000, M100.637 #### [facility] [address] [place], [address] Bilirubin [Mass/Vol] 0.70 mg/dL Normal 0.20-1.00 [facility] Comment on above: Order Comment: Order Date: 09/27/24Order Info: 0786-1 - CMPOrder Info: [id number] - LIPIDComments: non-fastingOrder Info: [id number] - TSHnon-fasting Result Comment: For patients on eltrombopag therapy, use of Dimension [place] TBIL is not recommended. Performed By: #### L 7000.0700, M100.0605, L7000.0300, M100.7900, L7000.0750, M7400.3302, M600.5000, M100.637 #### [facility] [address] [place], [address] BUN/CRE 21.2 RATIO High 10-20 [facility] Comment on above: Order Comment: Order Date: 09/27/24Order Info: [id number] - CMPOrder Info: [id number] - LIPIDComments: non-fastingOrder Info: 3016-01 - TSHnon-fasting Performed By: #### L 7000.0700, M100.0605, L7000.0300, M100.7900, L7000.0750, M7400.3302, M600.5000, M100.637 #### [facility] [address] [place], [address] CA,Total 9.2 mg/dL Normal 8.5-10.1 [facility] Comment on above: Order Comment: Order Date: 09/27/24Order Info: 07 - CMPOrder Info: [id number] - LIPIDComments: non-fastingOrder Info: [id number] - TSHnon-fasting Performed By: #### L 7000.0700, M100.0605, L7000.0300, M100.7900, L7000.0750, M7400.3302, M600.5000, M100.637 #### [facility] [address] [place], [address] Chloride [Moles/Vol] 102 mmol/L Normal 98-107 [facility] Comment on above: Order Comment: Order Date: 09/27/24Order Info: 0786-1 - CMPOrder Info: [id number] - LIPIDComments: non-fastingOrder Info: [id number] - TSHnon-fasting Performed By: #### L 7000.0700, M100.0605, L7000.0300, M100.7900, L7000.0750, M7400.3302, M600.5000, M100.637 #### [facility] [address] [place], [address] CO2 [Moles/Vol] 26.0 mmol/L Normal 21.0-32.0 [facility] Comment on above: Order Comment: Order Date: 09/27/24Order Info: [id number] - CMPOrder Info: [id number] - LIPIDComments: non-fastingOrder Info: [id number] - TSHnon-fasting Performed By: #### L 7000.0700, M100.0605, L7000.0300, M100.7900, L7000.0750, M7400.3302, M600.5000, M100.637 #### [facility] [address] [place], [address] Creatinine [Mass/Vol] 0.75 mg/dL Normal 0.55-1.02 [facility] Comment on above: Order Comment: Order Date: 09/27/24Order Info: 0786 - CMPOrder Info: [id number] - LIPIDComments: non-fastingOrder Info: 3 - TSHnon-fasting Result Comment: The validity of the calculated GFR GFRAA in patients over 70 years has not been determined. Clinical correlation is essential. Performed By: #### L 7000.0700, M100.0605, L7000.0300, M100.7900, L7000.0750, M7400.3302, M600.5000, M100.637 #### [facility] [address] [place], [address] EST GFR - AA 100 mL/min Normal >60 [facility] Comment on above: Order Comment: Order Date: 09/27/24Order Info: 0786- - CMPOrder Info: [id number] - LIPIDComments: non-fastingOrder Info: 6-3 - TSHnon-fasting Result Comment: Afri can Samoan GFR Calc Performed By: #### L 7000.0700, M100.0605, L7000.0300, M100.7900, L7000.0750, M7400.3302, M600.5000, M100.637 #### [facility] [address] [place], [place], [address] GAP 7 Normal 5-15 [facility] Comment on above: Order Comment: Order Date: 09/27/24Order Info: 07 - CMPOrder Info: [id number] - LIPIDComments: non-fastingOrder Info: 6-3 - TSHnon-fasting Performed By: #### L 7000.0700, M100.0605, L7000.0300, M100.7900, L7000.0750, M7400.3302, M600.5000, M100.637 #### [facility] [address] [place], [place], [address] GFR/1.73 sq M.predicted among non-blacks MDRD (S/P/Bld) [Vol rate/Area] 83 mL/min/{1.73_m2} Normal >60 [facility] Comment on above: Order Comment: Order Date: 09/27/24Order Info: 0786- - CMPOrder Info: [id number] - LIPIDComments: non-fastingOrder Info: 6-3 - TSHnon-fasting Result Comment: Non- GFR Calc Performed By: #### L 7000.0700, M100.0605, L7000.0300, M100.7900, L7000.0750, M7400.3302, M600.5000, M100.637 #### [facility] [address] [place], [address] Globulin (S) [Mass/Vol] 3.5 g/dL Normal 2.2-4.2 [facility] Comment on above: Order Comment: Order Date: 09/27/24Order Info: 0786- - CMPOrder Info: [id number] - LIPIDComments: non-fastingOrder Info: 3016 - TSHnon-fasting Performed By: #### L 7000.0700, M100.0605, L7000.0300, M100.7900, L7000.0750, M7400.3302, M600.5000, M100.637 #### [facility] [address] [place], [address] Glucose [Mass/Vol] 95 mg/dL Normal 74-106 [facility] Comment on above: Order Comment: Order Date: 09/27/24Order Info: 0786- - CMPOrder Info: [id number] - LIPIDComments: non-fastingOrder Info: 3016-01 - TSHnon-fasting Performed By: #### L 7000.0700, M100.0605, L7000.0300, M100.7900, L7000.0750, M7400.3302, M600.5000, M100.637 #### [facility] [address] [place], [address] Potassium [Moles/Vol] 4.0 mmol/L Normal 3.5-5.1 [facility] Comment on above: Order Comment: Order Date: 09/27/24Order Info: 0786- - CMPOrder Info: [id number] - LIPIDComments: non-fastingOrder Info: 6 - TSHnon-fasting Performed By: #### L 7000.0700, M100.0605, L7000.0300, M100.7900, L7000.0750, M7400.3302, M600.5000, M100.637 #### [facility] [address] [place], [place], [phone] (120) Sodium [Moles/Vol] 136 mmol/L Normal 136-145 [facility] Comment on above: Order Comment: Order Date: 09/27/24Order Info: 0786-1 - CMPOrder Info: [id number] - LIPIDComments: non-fastingOrder Info: 3 - TSHnon-fasting Performed By: #### L 7000.0700, M100.0605, L7000.0300, M100.7900, L7000.0750, M7400.3302, M600.5000, M100.637 #### [facility] [address] [place], [place], [phone] (602) T PROT 7.8 g/dL Normal 6.4-8.2 [facility] Comment on above: Order Comment: Order Date: 09/27/24Order Info: 0786 - CMPOrder Info: [id number] - LIPIDComments: non-fastingOrder Info: 3016-01 - TSHnon-fasting Performed By: #### L 7000.0700, M100.0605, L7000.0300, M100.7900, L7000.0750, M7400.3302, M600.5000, M100.637 #### [facility] [address] [place], [place], [phone] (471) Urea nitrogen [Mass/Vol] 16 mg/dL Normal 7-18 [facility] Comment on above: Order Comment: Order Date: 09/27/24Order Info: 0786- - CMPOrder Info: [id number] - LIPIDComments: non-fastingOrder Info: 3016-01 - TSHnon-fasting Performed By: #### L 7000.0700, M100.0605, L7000.0300, M100.7900, L7000.0750, M7400.3302, M600.5000, M100.637 #### [facility] [address] [place], [place], [address] Hemoglobin A1con 09-27-2024 HbA1c (Bld) [Mass fraction] 6.0 % High 3.8-5.6 [facility] Comment on above: Order Comment: Order Date: 09/27/24Order Info: [id number] - A1C Result Comment: Norm al < 5.7 % Prediabetic 5.7 - 6.4 % Diabetic >or= 6.5 % Please note range changes. Performed By: #### L 7000.0700, M100.0605, L7000.0300, M100.7900, L7000.0750, M7400.3302, M600.5000, M100.637 #### [facility] [address] [place], [place], [address] Lipid Profileon 09-27-2024 Cholesterol [Mass/Vol] 195 mg/dL Normal 200 [facility] Comment on above: Order Comment: Order Date: 09/27/24Order Info: 0786-1 - CMPOrder Info: [id number] - LIPIDComments: non-fastingOrder Info: 3016-3 - TSHnon-fasting Result Comment: <200 mg/dL Desirable 200-240 mg/dL Borderline >240 mg/dL High Risk Performed By: #### L 7000.0700, M100.0605, L7000.0300, M100.7900, L7000.0750, M7400.3302, M600.5000, M100.637 #### [facility] [address] [place], [place], [address] Cholesterol in HDL [Mass/Vol] 65 mg/dL Normal [facility] Comment on above: Order Comment: Order Date: 09/27/24Order Info: 0786-1 - CMPOrder Info: [id number] - LIPIDComments: non-fastingOrder Info: 3016-3 - TSHnon-fasting Result Comment: The drugs N-Acetylcysteine and Metamizole may falsely depress this assay. Reference Range HDL <40 mg/dL Low HDL Cholesterol HDL >or= 60 mg/dL High HDL Cholesterol Performed By: #### L 7000.0700, M100.0605, L7000.0300, M100.7900, L7000.0750, M7400.3302, M600.5000, M100.637 #### [facility] [address] [place], [address] Cholesterol in LDL [Mass/Vol] 89 mg/dL Normal 0-130 [facility] Comment on above: Order Comment: Order Date: 09/27/24Order Info: 0786-1 - CMPOrder Info: [id number] - LIPIDComments: non-fastingOrder Info: 3016-3 - TSHnon-fasting Performed By: #### L 7000.0700, M100.0605, L7000.0300, M100.7900, L7000.0750, M7400.3302, M600.5000, M100.637 #### [facility] [address] [place], [address] Cholesterol in VLDL [Mass/Vol] 41 mg/dL High 5-40 [facility] Comment on above: Order Comment: Order Date: 09/27/24Order Info: 0786-1 - CMPOrder Info: [id number] - LIPIDComments: non-fastingOrder Info: 3016-3 - TSHnon-fasting Performed By: #### L 7000.0700, M100.0605, L7000.0300, M100.7900, L7000.0750, M7400.3302, M600.5000, M100.637 #### [facility] [address] [place], [address] Triglyceride [Mass/Vol] 203 mg/dL High [facility] Comment on above: Order Comment: Order Date: 09/27/24Order Info: 0786-1 - CMPOrder Info: [id number] - LIPIDComments: non-fastingOrder Info: 3016-3 - TSHnon-fasting Result Comment: The drugs N-Acetylcysteine and Metamizole may falsely depress this assay. Serum Triglycerides Reference Interval Normal <150 mg/dL Borderline high 150 - 199 mg/dL High 200 - 499 mg/dL Very High > or = 500 mg/dL Performed By: #### L 7000.0700, M100.0605, L7000.0300, M100.7900, L7000.0750, M7400.3302, M600.5000, M100.637 #### [facility] [address] [place], [address] Microalb:Creat Ratio,Random URon 09-27-2024 Creatinine [Mass/Vol] 28.30 mg/dL Normal NO RAN GE EST. [facility] Comment on above: Order Comment: Order Date: 09/27/24Order Info: 0779-1 - MIACRE Performed By: #### L 7000.0700, M100.0605, L7000.0300, M100.7900, L7000.0750, M7400.3302, M600.5000, M100.637 #### [facility] [address] [place], [address] MALB:CRE TNP Normal <30 mg/g CRE [facility] Comment on above: Order Comment: Order Date: 09/27/24Order Info: 0779-1 - MIACRE Performed By: #### L 7000.0700, M100.0605, L7000.0300, M100.7900, L7000.0750, M7400.3302, M600.5000, M100.637 #### [facility] [address] [place], [address] MICROALBUMIN,UR < 5.0 Normal NO RANGE EST. [facility] Comment on above: Order Comment: Order Date: 09/27/24Order Info: 0779-1 - MIACRE Performed By: #### L 7000.0700, M100.0605, L7000.0300, M100.7900, L7000.0750, M7400.3302, M600.5000, M100.637 #### [facility] [address] [place], [address] Thyroid Stim Hormone (TSH)on 09-27-2024 TSH 0.640 uIU/mL Normal 0.358-3.74 0 [facility] Comment on above: Order Comment: Order Date: 09/27/24Order Info: 0786-1 - CMPOrder Info: [id number] - LIPIDComments: non-fastingOrder Info: 3016-3 - TSHnon-fasting Performed By: #### L 7000.0700, M100.0605, L7000.0300, M100.7900, L7000.0750, M7400.3302, M600.5000, M100.637 #### [facility] [address] [place], [place], [address] Gastric Emptying Studyon Gastric Emptying Study [facility] Imaging Services [address] [place], [place] [address] Gastric Emptying Study MR#: [id number] Acct: [id number] Name: QI PHILIPPE Rep #: [id number] : 1965 F 59 From: Jairo Mao PCP: Dr. Bret Gomez MD Status: REG CLI Study: Gastric Emptying Study Date of Exam: 08/12/24 Exam# [id number] Ordering Dr: Gumaro Sandhu DO [id number] CLINICAL: 59-year-old female with history of refractory [...] Dr. 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 [address] OFFICE VISIT Date of Service: 08/04/24 MR#: [id number] Acct: [id number] Name: QI PHILIPPE Rep #: [id number] : 1965 Provider: Gumaro Sandhu DO Age/Sex: 59/F Location: [facility] Status: Signed Intake Vital Signs 10/29/23 07:04 [...] nause (more content not included)... Normal [facility] Calprotectin, Stoolon [address] 149 ug/g Abnormal 0-120 [facility] Comment on above: Order Comment: Test( s) 102117-Yoiw, Neutral; 587857-Mtzy, Total was developed and its performance characteristics determined by [facility]. It has not been cleared or approved by the Food and Drug Administration. Result Comment: Conc entration Interpretation Follow-Up < 5 - 50 ug/g Normal None >50 -120 ug/g Borderline Re-evaluate in 4-6 weeks >120 ug/g Abnormal Repeat as clinically indicated Performed at: [facility] [id number] Child Nutrition Assistant: Johnnie Cota PhD, Phone: [phone] Performed at: [facility] [address] [id number] Child Nutrition Assistant: Jr Gustafson MD, Phone: [phone] Performed By: #### L 7000.0700, M100.0605, L7000.0300, M100.7900, L7000.0750, M7400.3302, M600.5000, M100.637 #### [facility] [place], [address] Fecal Fat, Qualitativeon FATS, NEUTRAL Normal Normal . [facility] Comment on above: Order Comment: Test( s) 199952-Rvak, Neutral; 456314-Gfgr, Total was developed and its performance characteristics determined by [facility]. It has not been cleared or approved by the Food and Drug Administration. Result Comment: Norm al (<60 Droplets/HPF) Performed By: #### L 7000.0700, M100.0605, L7000.0300, M100.7900, L7000.0750, M7400.3302, M600.5000, M100.637 #### [facility] [address] [place], [place], [address] (671) FATS, TOTAL Normal Normal . [facility] Comment on above: Order Comment: Test( s) 438908-Ithu, Neutral; 272616-Ljmc, Total was developed and its performance characteristics determined by [facility]. It has not been cleared or approved by the Food and Drug Administration. Result Comment: Norm al (<100 Droplets/HPF) Performed By: #### L 7000.0700, M100.0605, L7000.0300, M100.7900, L7000.0750, M7400.3302, M600.5000, M100.637 #### [facility] [address] [place], [place], [address] (306) M7400.3302on 07-19-2024 M7400.3302 ___ TESTING PERFORMED AT [facility]. ORIGINAL REPORT ON FILE IN LAB CONTAINS ADDITIONAL TEST SITE INFORMATION. ___ Giardia Lamblia EIA NEGATIVE Normal [facility] Comment on above: Performed By: #### L 7000.0700, M100.0605, L7000.0300, M100.7900, L7000.0750, M7400.3302, M600.5000, M100.637 #### [facility] [address] [place], [address] Ova and Parasites 8623on OP OVA AND PARASITES EX AM, ROUTINE These results were obtained using wet preparation(s) and trichrome stained smear. This test does not include testing for Crytosporidium parvum, Cyclospora, or Microsporidia. O+P Spec Micro One negative specimen does not rule out the possibility of a parasitic infection. ___ TESTING PERFORMED AT [facility]. ORIGINAL REPORT ON FILE IN LAB CONTAINS ADDITIONAL TEST SITE INFORMATION. ___ Ova/Parasite Exam NO OVA, CYSTS, OR PARASITES FOUND. Normal [facility] Comment on above: Performed By: #### L 7000.0700, M100.0605, L7000.0300, M100.7900, L7000.0750, M7400.3302, M600.5000, M100.637 #### [facility] [address] [place], [address] Bedside Glucoseon 07-16-2024 FINGERSTICK GLU 97 mg/dL Normal 74-106 [facility] Comment on above: Result Comment: CORIE ROMERO OF PATIENT CARE PER NURSING PROTOCOL Performed By: #### L 501.080 ####[facility] [address] [place], [place], [address] EGD Reporton 07-16-2024 EGD Report [facility] Medical Records Department [address] [place] [address] EGD Report MR#: [id number] Acct: [id number] Name: QI PHILIPPE Rep #: [id number] : 1965 59 From: Gumaro Sandhu DO PCP: Dr. Bret Gomez MD Status:[facility] Patient Name: Qi Philippe Procedure Date: 07/16/2024 [...] pathology results. Procedure Code(s): --- Professional --- 88042, Esophagogastroduodenoscopy, flexible, transoral; with biopsy, single or multiple CPT copyright 2021 [employer]. All rights reserved. The codes documented in this report are preliminary and upon solutions developer review may be revised to meet current compliance requirements. Gumaro Sandhu DO 07/16/2024 1:28:24 PM This report has been signed electronically. Number of Addenda: 0 Note Initiated On: 07/16/2024 1:04 PM 07/16/24 1328 Date Gumaro Storey Signature: Date (if indicated) CC: Dr. Bret Gomez MD; Gumaro Sandhu DO Date Dictated: 07/16/24 1304 Date Transcribed: Straw Hat Plunger Operator: LINO Signed Normal [facility] H Pylori (initial)on 024 H Pylori (initial) ------- Patient Age/Sex Location Account Attending Physician QI PHILIPPE 59/F EN [id number] Gumaro Sandhu DO Specimen: [id number] Received: 07/19/24 Status: RICKIEEse Young Num: [id number] Spec Type: IMMUNO Subm Dr: Gumaro Sandhu DO PHYSICIAN INSTITUTION [place] [address] SPECIMEN INFORMATION: Tissue Source: A- Antrum biopsy Clinical Info: Hypergastrinemia, gastric ulcer, diverticula colon, GERD Specimen Number: [id number] CPT code: 11054 METHODOLOGY: Deparaffinized sections of prefer/formalin-fixed tissue or [...] and their performance characteristics determined by [facility]. They may not have been cleared or approved by the U.S. Food and Drug Administration. The FDA has determined that such clearance or approval is not necessary. The above immunohistochemical/dualISH markers are ordered and reviewed by the Pathologist. INTERPRETATION: A. Antrum, biopsy: Negative for Helicobacter pylori organisms. SJ/mr 07/20/2024 Signed (signature on file) Dr. Roque Tello MD 07/20/24 1212 Normal [facility] Comment on above: Performed By: #### P H.PYLORI ####[facility] [address] [facility] [place], [address] MR/POSTOP.Antonia 07-16-2024 MR/POSTOP.[facility] Medical Records Department [address] [place] [address] Anesthesia Postop Eval I 07/16/24 1333 MR#: [id number] Acct: [id number] Name: QI PHILIPPE Amparo Rep #: [id number] : 1965 59 From: Pieter Scruggs PCP: Dr. Bret Gomez MD Status:REG [facility] Y Race: C Location: [place] [address] Anesthesia: Postop Eval I Current Vital Signs [...] Reedclydetorsten Signature: Date CC: Signed Normal [facility] MR/[id number] 07-16-2024 MR/POSTOPAN2 [facility] Medical Records Department [address] [place] [address] Anesthesia Postop Eval II 07/16/24 1347 MR#: [id number] Acct: [id number] Name: QI PHILIPPE Rep #: [id number] : 1965 59 From: Olvin Biggs MD PCP: Dr. Bret Gomez MD Status:REG [facility] Y Race: C Location: [place] [address] Anesthesia Postop Eval I Sum Postop Eval [...] Level: 0 nausea: No Vomiting: No 07/16/24 9747 Date Olvin Mendez Signature: Date CC: Signed Normal [facility] Special Stain Group Ion 06-25 Special Stain Group I --------- Patient Age/Sex Location Account Attending Physician QI PHILIPPE 59/F EN [id number] Gumaro Sandhu DO Specimen: [id number] Received: 07/16/24 Status: LAKISHA Young Num: [id number] Spec Type: EGD BIOPSY Subm Dr: Gumaro [...] for Helicobacter pylori will be reported separately ([id number]). B. Alcian blue/PAS stain with matched control [...] submitted in one cassette. Alicia 07/19/2024 TC:3 CPT:76657u0,02704 Patient Age/Sex Location Account Attending Physician QI PHILIPPE 59/F EN [id number] Gumaro Sandhu, DO Signed (signature on file) Dr. Roque Tello MD 07/20/24 1122 Normal [facility] Comment on above: Performed By: #### P SSI ####[facility] [address] [place], [place], [address] L7000.0750on 07-12-2024 P ELASTASE,FECA > 800 Normal >200 [facility] Comment on above: Result Comment: Resu lt Units: ug Elast./g Severe Pancreatic Insufficiency: <100 Moderate Pancreatic Insufficiency: 100 - 200 Normal: >200 Performed at: [address] [id number] Child Nutrition Assistant: Jr Gustafson MD, Phone: [phone] Performed By: #### L 7000.0700, M100.0605, L7000.0300, M100.7900, L7000.0750, M7400.3302, M600.5000, M100.637 #### [facility] [address] [facility] [place], [address] ENTERIC PATHOGEN PANEL STOOL on [...] Not Detected Yersinia Not Detected Normal [facility] Comment on above: Performed By: #### L 7000.0700, M100.0605, L7000.0300, M100.7900, L7000.0750, M7400.3302, M600.5000, M100.637 #### [facility] [address] [facility] [address] [place], [address] Stool Lactoferrin/WBCon 06-24 WBCST Normal Reference Ran ge = Negative Fecal WBC Lactoferrin A Positive: Fecal WBC Lactoferrin present A Normal [facility] Comment on above: Performed By: #### L 7000.0700, M100.0605, L7000.0300, M100.7900, L7000.0750, M7400.3302, M600.5000, M100.637 #### [facility] [address] [place], [place], [address] Stool Occult Blood iFOBon STOB Positive Normal [facility] Comment on above: Performed By: #### L 7000.0700, M100.0605, L7000.0300, M100.7900, L7000.0750, M7400.3302, M600.5000, M100.637 #### [facility] [address] [place], [address] Absolute lymphocyte countOrd ered By: Too Bingham on 03-16-2024 Lymphocytes Auto (Unsp spec) [#/Vol] 1.92 10*3/uL 0.83-4.51 [facility] Automated lymphocyte count a s percentage of total leukocytesOrdered By: Too Bingham on 03-16-2024 Lymphocytes/100 WBC Auto (Unsp spec) 31.1 % 19-41 [facility] Basophil percentageOrdered B y: Too Bingham on 03-16-2024 Basophils/100 WBC (Bld) 0.3 % 0-1 [facility] Chloride [Moles/Vol] 102 mmol/L 98-107 [facility] Eosinophils/100 WBC (Bld) 0.6 % 0-5 [facility] Glucose [Mass/Vol] 110 mg/dL 74-106 [facility] Comment on above: Fasting Glucose resu lt from 100 to 125 mg/dL suggests IMPAIRED HOMEOSTASIS per A.D.A. criteria. Hemoglobin (Bld) [Mass/Vol] 14.0 g/dL 12.0-15.0 [facility] Monocytes/100 WBC (Bld) 6.5 % 0-10 [facility] Neutrophils (Bld) [#/Vol] 3.8 10*3/uL 2.0-7.7 [facility] Neutrophils/100 WBC (Bld) 61.3 % 47-70 [facility] Potassium [Moles/Vol] 3.6 mmol/L 3.5-5.1 [facility] Sodium [Moles/Vol] 136 mmol/L 136-145 [facility] WBC (Bld) [#/Vol] 6.2 10*3/uL 4.4-11.0 [facility] Determination of erythrocyte mean corpuscular volume (MCV)Ordered By: Too Bingham on 03-16-2024 MCV (RBC) [Entitic vol] 86.6 fL 81-99 [facility] Erythrocyte distribution wid th ratioOrdered By: Too Bingham on 03-16-2024 Erythrocyte distribution width (RBC) [Ratio] 11.9 % 11.6-14.6 [facility] Erythrocyte distribution wid th standard deviationOrdered By: Too Bingham on 03-16-2024 Erythrocyte distribution width (RBC) [Entitic vol] 37.8 fL 35.1-43.9 [facility] Hematocrit Auto (Bld) [Volum e fraction]Ordered By: Too Bingham on 03-16-2024 Hematocrit (Bld) [Volume fraction] 42.1 % 37-47 [facility] Immature granulocytes/100 WB C Auto (Bld)Ordered By: Too Bingham on 03-16-2024 Immature granulocytes/100 WBC (Bld) 0.200 % 0.0-0.9 [facility] Comment on above: IG% - Immature Granu locytes (promyelocytes, myelocytes and metamyelocytes) > 1% indicates that a LEFT SHIFT is Present. Laboratory - Chemistry and C hemistry - challengeOrdered By: Too Bingham on 03-16-2024 CO2 [Moles/Vol] 29.0 mmol/L 21.0-32.0 [facility] Urea nitrogen/Creatinine [Mass ratio] 22.4 mg/mg 10-20 [facility] Laboratory - Hematology and Cell countsOrdered By: Too Bingham on 03-16-2024 MCH (RBC) [Entitic mass] 28.8 pg 27.0-32.0 [facility] MCHC (RBC) [Mass/Vol] 33.3 g/dL 32-36 [facility] Nucleated RBC/100 WBC (Bld) [Ratio] 0 % 0-5 [facility] Platelet mean volume (Bld) [Entitic vol] 10.4 fL 6.2-12.0 [facility] Platelets (Bld) [#/Vol] 346 10*3/uL 150-450 [facility] No Panel InformationOrdered By: Too Bingham on 03-16-2024 Estimated GFR (MDRD) Amer 107 mL/min >60 [facility] Comment on above: GFR Calc Estimated GFR (MDRD) Non-Af Amer 88 mL/min >60 [facility] Comment on above: Non- GFR Calc RBC Auto (Bld) [#/Vol]Ordere d By: Too Bingham on 03-16-2024 RBC (Bld) [#/Vol] 4.86 10*6/uL 4.2-5.4 [facility] Serum or plasma calcium kassandra urement (mass/volume)Ordered By: Too Bingham on 03-16-2024 Calcium [Mass/Vol] 9.4 mg/dL 8.5-10.1 [facility] Serum or plasma creatinine m easurement (mass/volume)Ordered By: Too Bingham on 03-16-2024 Creatinine [Mass/Vol] 0.72 mg/dL 0.55-1.02 [facility] Comment on above: The validity of the calculated GFR & GFRAA in patients over 70 years has not been determined. Clinical correlation is essential. Serum or plasma urea nitroge n measurement (mass/volume)Ordered By: Too Bingham on 03-16-2024 Urea nitrogen [Mass/Vol] 16 mg/dL 7-18 [facility] Thin prep Papanicolaou smear with manual screeningOrdered By: Too Bingham on 03-16-2024 Thin prep Papanicolaou smear with manual screening 5 5-15 [facility] Whole blood hemoglobin A1c/t otal hemoglobin ratio (mass fraction)Ordered By: Too Bingham on 03-16-2024 HbA1c (Bld) [Mass fraction] 6.0 % 3.8-5.6 [facility] Comment on above: Normal < 5.7 % Predi abetic 5.7 - 6.4 % Diabetic >or= 6.5 % Please note range changes. Glucose Glucometer (BldC) [M ass/Vol]Ordered By: Gumaro Sandhu on 10-29-2023 Glucose [Mass/Vol] 115 mg/dL 74-106 [facility] Comment on above: MANAGEMENT OF PATIEN T CARE PER NURSING PROTOCOL Basophil percentageOrdered B y: Bret Gomez on 09-30-2023 Bilirubin [Mass/Vol] 0.40 mg/dL 0.20-1.00 [facility] Comment on above: For patients on eltr ombopag therapy, use of Dimension [place] TBIL is not recommended. Chloride [Moles/Vol] 107 mmol/L 98-107 [facility] Cholesterol [Mass/Vol] 203 mg/dL <200 [facility] Comment on above: <200 mg/dL Desirable 200-240 mg/dL Borderline >240 mg/dL High Risk Glucose [Mass/Vol] 126 mg/dL 74-106 [facility] Comment on above: Fasting Glucose resu lt greater than or equal to 126 mg/dL suggests DIABETES MELLITUS per A.D.A. criteria. Potassium [Moles/Vol] 3.8 mmol/L 3.5-5.1 [facility] Protein [Mass/Vol] 7.2 g/dL 6.4-8.2 [facility] Sodium [Moles/Vol] 139 mmol/L 136-145 [facility] Triglyceride [Mass/Vol] 143 mg/dL <199 [facility] Comment on above: The drugs N-Acetylcy steine and Metamizole may falsely depress this assay.Serum Triglycerides Reference Interval Normal <150 mg/dL Borderline high 150 - 199 mg/dL High 200 - 499 mg/dL Very High > or = 500 mg/dL Laboratory - Chemistry and C hemistry - challengeOrdered By: Bret Gomez on 09-30-2023 ALP [Catalytic activity/Vol] 65 U/L 45-117 [facility] ALT [Catalytic activity/Vol] 33 U/L 13-56 [facility] CO2 [Moles/Vol] 25.0 mmol/L 21.0-32.0 [facility] Globulin (S) [Mass/Vol] 3.4 g/dL 2.2-4.2 [facility] Urea nitrogen/Creatinine [Mass ratio] 28.2 mg/mg 10-20 [facility] No Panel InformationOrdered By: Bret Gomez on 09-30-2023 Urine Microalbumin/Creatinin e Ratio 5.1 mg/g CRE <30 [facility] Estimated GFR (MDRD) Amer 115 mL/min >60 [facility] Comment on above: GFR Calc Estimated GFR (MDRD) Non-Af Amer 95 mL/min >60 [facility] Comment on above: Non- GFR Calc Serum or plasma albumin kassandra urement (mass/volume)Ordered By: Bret Gomez on 09-30-2023 Albumin [Mass/Vol] 3.8 g/dL 3.2-5.0 [facility] Serum or plasma albumin/glob ulin mass ratioOrdered By: Bret Gomez on 09-30-2023 Albumin/Globulin [Mass ratio] 1.1 {ratio} 0.9-2.4 [facility] Serum or plasma calcium kassandra urement (mass/volume)Ordered By: Bret Gomez on 09-30-2023 Calcium [Mass/Vol] 9.0 mg/dL 8.5-10.1 [facility] Serum or plasma cholesterol in HDL measurement (mass/volume)Ordered By: Bret Gomez on 09-30-2023 Cholesterol in HDL [Mass/Vol] 46 mg/dL >40 [facility] Comment on above: The drugs N-Acetylcy steine and Metamizole may falsely depress this assay. Reference Range HDL <40 mg/dL Low HDL Cholesterol HDL >or= 60 mg/dL High HDL Cholesterol Serum or plasma cholesterol in VLDL measurement (mass/volume)Ordered By: Bret Gomez on 09-30-2023 Cholesterol in VLDL [Mass/Vol] 29 mg/dL 5-40 [facility] Serum or plasma creatinine m easurement (mass/volume)Ordered By: Bret Gomez on 09-30-2023 Creatinine [Mass/Vol] 0.67 mg/dL 0.55-1.02 [facility] Comment on above: The validity of the calculated GFR & GFRAA in patients over 70 years has not been determined. Clinical correlation is essential. Serum or plasma low density lipoprotein (LDL) cholesterol measurement (mass/volume)Ordered By: Bret Gomez on 09-30-2023 Cholesterol in LDL [Mass/Vol] 128 mg/dL 0-130 [facility] Serum or plasma urea nitroge n measurement (mass/volume)Ordered By: Bret Gomez on 09-30-2023 Urea nitrogen [Mass/Vol] 19 mg/dL 7-18 [facility] Thin prep Papanicolaou smear with manual screeningOrdered By: Bret Gomez on 09-30-2023 Thin prep Papanicolaou smear with manual screening 13.6 mg/L NO RANGE EST. [facility] Thin prep Papanicolaou smear with manual screening 19 U/L 15-37 [facility] Thin prep Papanicolaou smear with manual screening 7 5-15 [facility] Urine creatinine measurement (mass/volume)Ordered By: Bret Gomez on 09-30-2023 Creatinine (U) [Mass/Vol] 266.00 mg/dL NO RANGE EST. [facility] Whole blood hemoglobin A1c/t otal hemoglobin ratio (mass fraction)Ordered By: Bret Gomez on 09-30-2023 HbA1c (Bld) [Mass fraction] 6.1 % 3.8-5.6 [facility] Comment on above: Normal < 5.7 % Predi abetic 5.7 - 6.4 % Diabetic >or= 6.5 % Please note range changes. No Panel InformationOrdered By: Gumaro Sandhu on 09-01-2023 Miscellaneous Test See comment [facility] Comment on above: TEST RESULT LIMITSCh romogranin A, 584.9 High ng/mL 0.0-101.8 Chromogranin A performed by Fotomoto/Jammcard KRYPTOR methodology Values obtained with different assay methods or kits cannot be used interchangeably. TESTING PERFORMED AT [facility]. ORIGINAL REPORT ON FILE IN LAB CONTAINS ADDITIONAL TEST SITE INFORMATION. Serum or plasma gastrin kassandra urement (mass/volume)Ordered By: Gumaro Sandhu on 09-01-2023 Gastrin [Mass/Vol] 329 pg/mL 0-115 [facility] Comment on above: Siemens Immulite 200 0 Immunochemiluminometric assay (ICMA)Values obtained with different assay methods or kits cannotbe used interchangeably. Results cannot be interpreted asabsolute evidence of the presence or absence of malignantdisease.Performed at: [address] [id number] Director: Jr Gustafson MD, Phone: [phone] Absolute lymphocyte countOrd ered By: Dr. Gomez on 03-19-2023 Lymphocytes Auto (Unsp spec) [#/Vol] 1.98 10*3/uL 0.83-4.51 [facility] Basophil percentageOrdered B y: Dr. Gomez on 03-19-2023 Basophils/100 WBC (Bld) 0.5 % 0-1 [facility] Bilirubin [Mass/Vol] 0.40 mg/dL 0.20-1.00 [facility] Comment on above: For patients on eltr ombopag therapy, use of Dimension [place] TBIL is not recommended. Chloride [Moles/Vol] 107 mmol/L 98-107 [facility] Cholesterol [Mass/Vol] 188 mg/dL <200 [facility] Comment on above: <200 mg/dL Desirable 200-240 mg/dL Borderline >240 mg/dL High Risk Eosinophils/100 WBC (Bld) 2.9 % 0-5 [facility] Glucose [Mass/Vol] 108 mg/dL 74-106 [facility] Comment on above: Fasting Glucose resu lt from 100 to 125 mg/dL suggests IMPAIRED HOMEOSTASIS per A.D.A. criteria. Neutrophils (Bld) [#/Vol] 3.3 10*3/uL 2.0-7.7 [facility] Neutrophils/100 WBC (Bld) 55.4 % 47-70 [facility] Potassium [Moles/Vol] 4.0 mmol/L 3.5-5.1 [facility] Protein [Mass/Vol] 7.3 g/dL 6.4-8.2 [facility] Sodium [Moles/Vol] 135 mmol/L 136-145 [facility] Triglyceride [Mass/Vol] 147 mg/dL <199 [facility] Comment on above: The drugs N-Acetylcy steine and Metamizole may falsely depress this assay.Serum Triglycerides Reference Interval Normal <150 mg/dL Borderline high 150 - 199 mg/dL High 200 - 499 mg/dL Very High > or = 500 mg/dL WBC (Bld) [#/Vol] 5.9 10*3/uL 4.4-11.0 [facility] Blood erythrocytes count (nu mber/volume)Ordered By: Dr. Gomez on 03-19-2023 RBC (Bld) [#/Vol] 4.82 10*6/uL 4.2-5.4 [facility] Blood hemoglobin measurement (mass/volume)Ordered By: Dr. Gomez on 03-19-2023 Hemoglobin (Bld) [Mass/Vol] 13.8 g/dL 12.0-15.0 [facility] Blood lymphocytes/100 leukoc ytesOrdered By: Dr. Gomez on 03-19-2023 Lymphocytes/100 WBC (Bld) 33.8 % 19-41 [facility] Blood monocytes/100 leukocyt esOrdered By: Dr. Gomez on 03-19-2023 Monocytes/100 WBC (Bld) 7.2 % 0-10 [facility] Blood platelet mean volumeOr dered By: Dr. Gomez on 03-19-2023 Platelet mean volume (Bld) [Entitic vol] 10.6 fL 6.2-12.0 [facility] Determination of erythrocyte mean corpuscular volume (MCV)Ordered By: Dr. Gomez on 03-19-2023 MCV (RBC) [Entitic vol] 89.8 fL 81-99 [facility] Hematocrit Auto (Bld) [Volum e fraction]Ordered By: Dr. Gomez on 03-19-2023 Hematocrit (Bld) [Volume fraction] 43.3 % 37-47 [facility] Laboratory - Chemistry and C hemistry - challengeOrdered By: Dr. Gomez on 03-19-2023 ALP [Catalytic activity/Vol] 62 U/L 45-117 [facility] ALT [Catalytic activity/Vol] 52 U/L 13-56 [facility] CO2 [Moles/Vol] 24.0 mmol/L 21.0-32.0 [facility] Globulin (S) [Mass/Vol] 3.3 g/dL 2.2-4.2 [facility] Urea nitrogen/Creatinine [Mass ratio] 23.4 mg/mg 10-20 [facility] Laboratory - Hematology and Cell countsOrdered By: Dr. Gomez on 03-19-2023 Erythrocyte distribution width (RBC) [Entitic vol] 38.9 fL 35.1-43.9 [facility] Erythrocyte distribution width (RBC) [Ratio] 11.9 % 11.6-14.6 [facility] Immature granulocytes/100 WBC (Bld) 0.200 % 0.0-0.9 [facility] Comment on above: IG% - Immature Granu locytes (promyelocytes, myelocytes and metamyelocytes) > 1% indicates that a LEFT SHIFT is Present. MCH (RBC) [Entitic mass] 28.6 pg 27.0-32.0 [facility] Nucleated RBC/100 WBC (Bld) [Ratio] 0 % 0-5 [facility] MCHC Auto (RBC) [Mass/Vol]Or dered By: Dr. Gomez on 03-19-2023 MCHC (RBC) [Mass/Vol] 31.9 g/dL 32-36 [facility] No Panel InformationOrdered By: Dr. Gomez on 03-19-2023 Estimated GFR (MDRD) Amer 105 mL/min >60 [facility] Comment on above: GFR Calc Estimated GFR (MDRD) Non-Af Amer 87 mL/min >60 [facility] Comment on above: Non- GFR Calc Urine Microalbumin/Creatinin e Ratio 5.6 mg/g CRE <30 [facility] Platelets bldOrdered By: Dr. Gomez on 03-19-2023 Platelets (Bld) [#/Vol] 282 10*3/uL 150-450 [facility] Serum or plasma albumin kassandra urement (mass/volume)Ordered By: Dr. Gomez on 03-19-2023 Albumin [Mass/Vol] 4.0 g/dL 3.2-5.0 [facility] Serum or plasma albumin/glob ulin mass ratioOrdered By: Dr. Gomez on 03-19-2023 Albumin/Globulin [Mass ratio] 1.2 {ratio} 0.9-2.4 [facility] Serum or plasma calcium kassandra urement (mass/volume)Ordered By: Dr. Gomez on 03-19-2023 Calcium [Mass/Vol] 9.1 mg/dL 8.5-10.1 [facility] Serum or plasma cholesterol in HDL measurement (mass/volume)Ordered By: Dr. Gomez on 03-19-2023 Cholesterol in HDL [Mass/Vol] 49 mg/dL >40 [facility] Comment on above: The drugs N-Acetylcy steine and Metamizole may falsely depress this assay. Reference Range HDL <40 mg/dL Low HDL Cholesterol HDL >or= 60 mg/dL High HDL Cholesterol Serum or plasma cholesterol in VLDL measurement (mass/volume)Ordered By: Dr. Gomez on 03-19-2023 Cholesterol in VLDL [Mass/Vol] 29 mg/dL 5-40 [facility] Serum or plasma creatinine m easurement (mass/volume)Ordered By: Dr. Gomez on 03-19-2023 Creatinine [Mass/Vol] 0.73 mg/dL 0.55-1.02 [facility] Comment on above: The validity of the calculated GFR & GFRAA in patients over 70 years has not been determined. Clinical correlation is essential. Serum or plasma low density lipoprotein (LDL) cholesterol measurement (mass/volume)Ordered By: Dr. Gomez on 03-19-2023 Cholesterol in LDL [Mass/Vol] 110 mg/dL 0-130 [facility] Serum or plasma urea nitroge n measurement (mass/volume)Ordered By: Dr. Gomez on 03-19-2023 Urea nitrogen [Mass/Vol] 17 mg/dL 7-18 [facility] Thin prep Papanicolaou smear with manual screeningOrdered By: Dr. Gomez on 03-19-2023 Thin prep Papanicolaou smear with manual screening 31 U/L 15-37 [facility] Thin prep Papanicolaou smear with manual screening 4 5-15 [facility] Thin prep Papanicolaou smear with manual screening 5.9 mg/L NO RANGE EST. [facility] Urine creatinine measurement (mass/volume)Ordered By: Dr. Gomez on 03-19-2023 Creatinine (U) [Mass/Vol] 106.00 mg/dL NO RANGE EST. [facility] Basophil percentageon 2021 Bilirubin [Mass/Vol] 0.80 mg/dL 0.20-1.00 [facility] Work Phone: Comment on above: For patients on eltr ombopag therapy, use of Dimension [place] TBIL is not recommended. Chloride [Moles/Vol] 103 mmol/L 98-107 [facility] Work Phone: Cholesterol [Mass/Vol] 240 mg/dL <200 [facility] Work Phone: Comment on above: <200 mg/dL Desirable 200-240 mg/dL Borderline >240 mg/dL High Risk Glucose [Mass/Vol] 104 mg/dL 74-106 [facility] Work Phone: Comment on above: Fasting Glucose resu lt from 100 to 125 mg/dL suggests IMPAIRED HOMEOSTASIS per A.D.A. criteria. Potassium [Moles/Vol] 3.4 mmol/L 3.5-5.1 [facility] Work Phone: Protein [Mass/Vol] 8.2 g/dL 6.4-8.2 [facility] Work Phone: Sodium [Moles/Vol] 137 mmol/L 136-145 [facility] Work Phone: Triglyceride [Mass/Vol] 171 mg/dL <199 [facility] Work Phone: Comment on above: The drugs N-Acetylcy steine and Metamizole may falsely depress this assay.Serum Triglycerides Reference Interval Normal <150 mg/dL Borderline high 150 - 199 mg/dL High 200 - 499 mg/dL Very High > or = 500 mg/dL Laboratory - Chemistry and C hemistry - challengeon 09-20-2022 ALP [Catalytic activity/Vol] 82 U/L 45-117 [facility] Work Phone: ALT [Catalytic activity/Vol] 53 U/L 13-56 [facility] Work Phone: CO2 [Moles/Vol] 25.0 mmol/L 21.0-32.0 [facility] Work Phone: Globulin (S) [Mass/Vol] 3.7 g/dL 2.2-4.2 [facility] Work Phone: Urea nitrogen/Creatinine [Mass ratio] 22.3 mg/mg 10-20 [facility] Work Phone: No Panel Informationon 09-20 Estimated GFR (MDRD) Amer 107 mL/min >60 [facility] Work Phone: Comment on above: GFR Calc Estimated GFR (MDRD) Non-Af Amer 88 mL/min >60 [facility] Work Phone: Comment on above: Non- GFR Calc Serum or plasma albumin kassandra urement (mass/volume)on 09-20-2022 Albumin [Mass/Vol] 4.5 g/dL 3.2-5.0 [facility] Work Phone: Serum or plasma albumin/glob ulin mass ratioon 09-20-2022 Albumin/Globulin [Mass ratio] 1.2 {ratio} 0.9-2.4 [facility] Work Phone: Serum or plasma calcium kassandra urement (mass/volume)on 09-20-2022 Calcium [Mass/Vol] 9.7 mg/dL 8.5-10.1 [facility] Work Phone: Serum or plasma cholesterol in HDL measurement (mass/volume)on 09-20-2022 Cholesterol in HDL [Mass/Vol] 53 mg/dL >40 [facility] Work Phone: Comment on above: The drugs N-Acetylcy steine and Metamizole may falsely depress this assay. Reference Range HDL <40 mg/dL Low HDL Cholesterol HDL >or= 60 mg/dL High HDL Cholesterol Serum or plasma cholesterol in VLDL measurement (mass/volume)on 09-20-2022 Cholesterol in VLDL [Mass/Vol] 34 mg/dL 5-40 [facility] Work Phone: Serum or plasma creatinine m easurement (mass/volume)on 09-20-2022 Creatinine [Mass/Vol] 0.72 mg/dL 0.55-1.02 [facility] Work Phone: Comment on above: The validity of the calculated GFR & GFRAA in patients over 70 years has not been determined. Clinical correlation is essential. Serum or plasma low density lipoprotein (LDL) cholesterol measurement (mass/volume)on 09-20-2022 Cholesterol in LDL [Mass/Vol] 153 mg/dL 0-130 [facility] Work Phone: Serum or plasma urea nitroge n measurement (mass/volume)on 09-20-2022 Urea nitrogen [Mass/Vol] 16 mg/dL 7-18 [facility] Work Phone: Thin prep Papanicolaou smear with manual screeningon 09-20-2022 Thin prep Papanicolaou smear with manual screening 29 U/L 15-37 [facility] Work Phone: Thin prep Papanicolaou smear with manual screening 9 5-15 [facility] Work Phone: Whole blood hemoglobin A1c/t otal hemoglobin ratio (mass fraction)on 09-20-2022 HbA1c (Bld) [Mass fraction] 6.2 % 3.8-5.6 [facility] Work Phone: Comment on above: Normal < 5.7 % Predi abetic 5.7 - 6.4 % Diabetic >or= 6.5 % Please note range changes. Absolute lymphocyte counton 05-22-2022 Lymphocytes Auto (Unsp spec) [#/Vol] 1.64 10*3/uL 0.83-4.51 [facility] Work Phone: Basophil percentageon 2021 Basophils/100 WBC (Bld) 0.3 % 0-1 [facility] Work Phone: Bilirubin [Mass/Vol] 0.50 mg/dL 0.20-1.00 [facility] Work Phone: Comment on above: For patients on eltr ombopag therapy, use of Dimension [place] TBIL is not recommended. Chloride [Moles/Vol] 105 mmol/L 98-107 [facility] Work Phone: Eosinophils/100 WBC (Bld) 1.0 % 0-5 [facility] Work Phone: Glucose [Mass/Vol] 122 mg/dL 74-106 [facility] Work Phone: Comment on above: Fasting Glucose resu lt from 100 to 125 mg/dL suggests IMPAIRED HOMEOSTASIS per A.D.A. criteria. Neutrophils (Bld) [#/Vol] 4.2 10*3/uL 2.0-7.7 [facility] Work Phone: Neutrophils/100 WBC (Bld) 66.0 % 47-70 [facility] Work Phone: Potassium [Moles/Vol] 3.7 mmol/L 3.5-5.1 [facility] Work Phone: Protein [Mass/Vol] 7.7 g/dL 6.4-8.2 [facility] Work [facility]: Sodium [Moles/Vol] 139 mmol/L 136-145 [facility] Work Phone: WBC (Bld) [#/Vol] 6.3 10*3/uL 4.4-11.0 [facility] Work Phone: [phone] Blood erythrocytes count (nu mber/volume)on 05-22-2022 RBC (Bld) [#/Vol] 4.94 10*6/uL 4.2-5.4 [facility] Work [facility]: Blood hemoglobin measurement (mass/volume)on 05-22-2022 Hemoglobin (Bld) [Mass/Vol] 14.3 g/dL 12.0-15.0 [facility] Work Phone: Blood lymphocytes/100 leukoc yteson 05-22-2022 Lymphocytes/100 WBC (Bld) 26.0 % 19-41 [facility] Work Phone: [phone] Blood monocytes/100 leukocyt eson 05-22-2022 Monocytes/100 WBC (Bld) 6.5 % 0-10 [facility] Work Phone: Blood platelet mean volumeon 05-22-2022 Platelet mean volume (Bld) [Entitic vol] 10.2 fL 6.2-12.0 [facility] Work Phone: Determination of erythrocyte mean corpuscular volume (MCV)on 05-22-2022 MCV (RBC) [Entitic vol] 87.9 fL 81-99 [facility] Work Phone: Hematocrit Auto (Bld) [Volum e fraction]on 05-22-2022 Hematocrit (Bld) [Volume fraction] 43.4 % 37-47 [facility] Work Phone: Laboratory - Chemistry and C hemistry - challengeon 05-22-2022 ALP [Catalytic activity/Vol] 79 U/L 45-117 [facility] Work Phone: ALT [Catalytic activity/Vol] 38 U/L 13-56 [facility] Work Phone: CO2 [Moles/Vol] 28.0 mmol/L 21.0-32.0 [facility] Work Phone: Globulin (S) [Mass/Vol] 3.4 g/dL 2.2-4.2 [facility] Work Phone: Urea nitrogen/Creatinine [Mass ratio] 19.6 mg/mg 10-20 [facility] Work Phone: Laboratory - Hematology and Cell countson 05-22-2022 Erythrocyte distribution width (RBC) [Entitic vol] 38.6 fL 35.1-43.9 [facility] Work Phone: Erythrocyte distribution width (RBC) [Ratio] 12.0 % 11.6-14.6 [facility] Work Phone: Immature granulocytes/100 WBC (Bld) 0.200 % 0.0-0.9 [facility] Work Phone: Comment on above: IG% - Immature Granu locytes (promyelocytes, myelocytes and metamyelocytes) > 1% indicates that a LEFT SHIFT is Present. MCH (RBC) [Entitic mass] 28.9 pg 27.0-32.0 [facility] Work Phone: Nucleated RBC/100 WBC (Bld) [Ratio] 0 % 0-5 [facility] Work Phone: MCHC Auto (RBC) [Mass/Vol]on 05-22-2022 MCHC (RBC) [Mass/Vol] 32.9 g/dL 32-36 [facility] Work Phone: No Panel Informationon 05-22 Estimated GFR (MDRD) Amer 99 mL/min >60 [facility] Work Phone: Comment on above: GFR Calc Estimated GFR (MDRD) Non-Af Amer 82 mL/min >60 [facility] Work Phone: Comment on above: Non- GFR Calc Miscellaneous Test See comment [facility] Work Phone: Comment on above: TEST RESULT LIMITSCh romogranin A, 459.2 High ng/mL 0.0-101.8Chromogranin A performed by Fotomoto/Jammcard KRDynadec methodologyValues obtained with different assay methods or kits cannot be used interchangeably. TESTING PERFORMED AT [facility]. ORIGINAL REPORT ON FILE IN LAB CONTAINS ADDITIONAL TEST SITE INFORMATION. Parathyroid Hormone (Intact) 41.8 pg/mL 18.4-80.1 [facility] Work Phone: Thyroid Stimulating Hormone (TSH) 0.87 uIU/mL 0.358-3.74 [facility] Work Phone: Platelets bldon 05-22-2022 Platelets (Bld) [#/Vol] 305 10*3/uL 150-450 [facility] Work Phone: Serum or plasma albumin kassandra urement (mass/volume)on 05-22-2022 Albumin [Mass/Vol] 4.3 g/dL 3.2-5.0 [facility] Work Phone: Serum or plasma albumin/glob ulin mass ratioon 05-22-2022 Albumin/Globulin [Mass ratio] 1.3 {ratio} 0.9-2.4 [facility] Work Phone: Serum or plasma calcium kassandra urement (mass/volume)on 05-22-2022 Calcium [Mass/Vol] 9.3 mg/dL 8.5-10.1 [facility] Work Phone: Serum or plasma creatinine m easurement (mass/volume)on 05-22-2022 Creatinine [Mass/Vol] 0.76 mg/dL 0.55-1.02 [facility] Work Phone: Comment on above: The validity of the calculated GFR & GFRAA in patients over 70 years has not been determined. Clinical correlation is essential. Serum or plasma prolactin me asurement (mass/volume)on 05-22-2022 Prolactin [Mass/Vol] 5.6 ng/mL [facility] Work Phone: Comment on above: NORMAL REFERENCE RAN GES FEMALE NON- 2.2 - 30.3 ng/mL 8.1 - 347.6 ng/mL POST-MENOPAUSAL 0.7 - 31.5 ng/mL MALE 2.5 - 17.4 ng/mL Serum or plasma urea nitroge n measurement (mass/volume)on 05-22-2022 Urea nitrogen [Mass/Vol] 15 mg/dL 7-18 [facility] Work Phone: Thin prep Papanicolaou smear with manual screeningon 05-22-2022 Thin prep Papanicolaou smear with manual screening 23 U/L 15-37 [facility] Work Phone: Thin prep Papanicolaou smear with manual screening 6 5-15 [facility] Work Phone: Serum or plasma gastrin kassandra urement (mass/volume)on 05-15-2022 Gastrin [Mass/Vol] 929 pg/mL 0-115 [facility] Work Phone: Comment on above: Siemens Immulite 200 0 Immunochemiluminometric assay (ICMA)Values obtained with different assay methods or kits cannotbe used interchangeably. Results cannot be interpreted asabsolute evidence of the presence or absence of malignantdisease.Performed at: [address] [id number] Director: Jr Gustafson MD, Phone: [phone] Glucose Glucometer (BldC) [M ass/Vol]on 05-08-2022 Glucose [Mass/Vol] 106 mg/dL 74-106 [facility] Work Phone: Comment on above: MANAGEMENT OF PATIEN T CARE PER NURSING PROTOCOL Absolute lymphocyte counton 01-25-2022 Lymphocytes Auto (Unsp spec) [#/Vol] 1.70 10*3/uL 0.83-4.51 [facility] Work Phone: [phone] Basophil percentageon 2021 Basophil percentage 0-5 SEEN /hpf 0-5 [facility] Work Phone: Basophils/100 WBC (Bld) 0.6 % 0-1 [facility] Work Phone: Bilirubin [Mass/Vol] 0.50 mg/dL 0.20-1.00 [facility] Work Phone: Comment on above: For patients on eltr ombopag therapy, use of Dimension [employer] [place] TBIL is not recommended. Chloride [Moles/Vol] 107 mmol/L 98-107 [facility] Work Phone: Eosinophils/100 WBC (Bld) 1.9 % 0-5 [facility] Work Phone: Glucose [Mass/Vol] 106 mg/dL 74-106 [facility] Work Phone: Comment on above: Fasting Glucose resu lt from 100 to 125 mg/dL suggests IMPAIRED HOMEOSTASIS per A.D.A. criteria. Neutrophils (Bld) [#/Vol] 4.0 10*3/uL 2.0-7.7 [facility] Work Phone: Neutrophils/100 WBC (Bld) 64.2 % 47-70 [facility] Work Phone: Potassium [Moles/Vol] 4.0 mmol/L 3.5-5.1 [facility] Work Phone: Protein [Mass/Vol] 7.8 g/dL 6.4-8.2 [facility] Work Phone: Sodium [Moles/Vol] 138 mmol/L 136-145 [facility] Work Phone: WBC (Bld) [#/Vol] 6.2 10*3/uL 4.4-11.0 [facility] Work Phone: Bilirubin Test strip Ql (U)o n 01-25-2022 Bilirubin Ql (U) Negative Negative [facility] Work Phone: Blood erythrocytes count (nu mber/volume)on 01-25-2022 RBC (Bld) [#/Vol] 5.12 10*6/uL 4.2-5.4 [facility] Work Phone: Blood hemoglobin measurement (mass/volume)on 01-25-2022 Hemoglobin (Bld) [Mass/Vol] 14.9 g/dL 12.0-15.0 [facility] Work Phone: Blood lymphocytes/100 leukoc yteson 01-25-2022 Lymphocytes/100 WBC (Bld) 27.6 % 19-41 [facility] Work Phone: [phone] Blood monocytes/100 leukocyt eson 01-25-2022 Monocytes/100 WBC (Bld) 5.5 % 0-10 [facility] Work Phone: Blood platelet mean volumeon 01-25-2022 Platelet mean volume (Bld) [Entitic vol] 10.1 fL 6.2-12.0 [facility] Work Phone: Determination of erythrocyte mean corpuscular volume (MCV)on 01-25-2022 MCV (RBC) [Entitic vol] 86.9 fL 81-99 [facility] Work Phone: Hematocrit Auto (Bld) [Volum e fraction]on 01-25-2022 Hematocrit (Bld) [Volume fraction] 44.5 % 37-47 [facility] Work Phone: Ketones Test strip Ql (U)on 01-25-2022 Ketones Ql (U) Negative Negative [facility] Work Phone: Laboratory - Chemistry and C hemistry - challengeon 01-25-2022 ALP [Catalytic activity/Vol] 88 U/L 45-117 [facility] Work Phone: ALT [Catalytic activity/Vol] 81 U/L 13-56 [facility] Work Phone: CO2 [Moles/Vol] 27.0 mmol/L 21.0-32.0 [facility] Work Phone: Globulin (S) [Mass/Vol] 3.6 g/dL 2.2-4.2 [facility] Work Phone: Lipase [Catalytic activity/Vol] 141 U/L 73-393 [facility] Work Phone: Urea nitrogen/Creatinine [Mass ratio] 19.9 mg/mg 10-20 [facility] Work Phone: Laboratory - Hematology and Cell countson 01-25-2022 Erythrocyte distribution width (RBC) [Entitic vol] 38.0 fL 35.1-43.9 [facility] Work Phone: Erythrocyte distribution width (RBC) [Ratio] 11.9 % 11.6-14.6 [facility] Work Phone: Immature granulocytes/100 WBC (Bld) 0.200 % 0.0-0.9 [facility] Work Phone: Comment on above: IG% - Immature Granu locytes (promyelocytes, myelocytes and metamyelocytes) > 1% indicates that a LEFT SHIFT is Present. MCH (RBC) [Entitic mass] 29.1 pg 27.0-32.0 [facility] Work Phone: Nucleated RBC/100 WBC (Bld) [Ratio] 0 % 0-5 [facility] Work Phone: MCHC Auto (RBC) [Mass/Vol]on 01-25-2022 MCHC (RBC) [Mass/Vol] 33.5 g/dL 32-36 [facility] Work [facility]: Mucus LM Ql (Urine sed)on Mucus Ql (Urine sed) 0 SEEN /hpf [facility] Work Phone: Nitrite Test strip Ql (U)on 01-25-2022 Nitrite Ql (U) Negative Negative [facility] Work Phone: No Panel Informationon 01-25 Estimated Creatinine Clearance Calc 73.61 ml/min [facility] Work Phone: Estimated GFR (MDRD) Amer 87 mL/min >60 [facility] Work Phone: Comment on above: GFR Calc Estimated GFR (MDRD) Non-Af Amer 72 mL/min >60 [facility] Work Phone: Comment on above: Non- GFR Calc Platelets bldon 01-25-2022 Platelets (Bld) [#/Vol] 302 10*3/uL 150-450 [facility] Work Phone: Protein Test strip Ql (U)on 01-25-2022 Protein Ql (U) Negative Negative [facility] Work Phone: Serum or plasma albumin kassandra urement (mass/volume)on 01-25-2022 Albumin [Mass/Vol] 4.2 g/dL 3.2-5.0 [facility] Work Phone: Serum or plasma albumin/glob ulin mass ratioon 01-25-2022 Albumin/Globulin [Mass ratio] 1.2 {ratio} 0.9-2.4 [facility] Work Phone: Serum or plasma calcium kassandra urement (mass/volume)on 01-25-2022 Calcium [Mass/Vol] 9.8 mg/dL 8.5-10.1 [facility] Work Phone: Serum or plasma creatinine m easurement (mass/volume)on 01-25-2022 Creatinine [Mass/Vol] 0.86 mg/dL 0.55-1.02 [facility] Work Phone: Comment on above: The validity of the calculated GFR & GFRAA in patients over 70 years has not been determined. Clinical correlation is essential. Serum or plasma urea nitroge n measurement (mass/volume)on 01-25-2022 Urea nitrogen [Mass/Vol] 17 mg/dL 7-18 [facility] Work Phone: Squamous epithelial cells de tection in urine sediment by light microscopyon 01-25-2022 Epithelial cells.squamous LM Ql (Urine sed) 0-5 SEEN /hpf 5-10 [facility] Work Phone: Thin prep Papanicolaou smear with manual screeningon 01-25-2022 Thin prep Papanicolaou smear with manual screening 43 U/L 15-37 [facility] Work Phone: Thin prep Papanicolaou smear with manual screening 4 5-15 [facility] Work Phone: Urine blood detectionon RBC Ql (U) Negative Negative [facility] Work Phone: RBC Ql (U) 0 SEEN /hpf 0-5 [facility] Work Phone: Urine clarityon 01-25-2022 Clarity (U) Sl. Cloudy Clear [facility] Work Phone: Urine color determinationon 01-25-2022 Color (U) Yellow Yellow [facility] Work Phone: Urine glucose detectionon Glucose Ql (U) Normal mg/dl Normal [facility] Work Phone: Urine leukocyte esterase det ection by dipstickon 01-25-2022 Leukocyte esterase Test strip Ql (U) 25 /ul Negative [facility] Work Phone: Urine pHon 01-25-2022 pH (U) 6.5 [pH] 5.0 - 8.0 [facility] Work Phone: Urine sediment bacteria coun t by microscopy (number/high power field)on 01-25-2022 Bacteria LM.HPF (Urine sed) [#/Area] 1 /[HPF] None Seen [facility] Work Phone: Urine specific gravity measu rementon 01-25-2022 Specific gravity (U) [Rel density] 1.015 1.002-1.03 0 [facility] Work Phone: Urobilinogen Auto test strip Ql (U)on 01-25-2022 Urobilinogen Ql (U) Normal mg/dl Normal [facility] Work Phone: Automatic Harper CCD-CCDAon 04-06-2020 Automatic Harper CCD-CCDA conversion failed Normal [facility] Established [...] unknown etiology; KAYLI = N; Sent To: [facility]; Last Updated By: Zita Mendoza; 2020 11:50:43 AM Upper abdominal pain of unknown etiology Start: Pantoprazole Sodium 40 MG Oral Tablet Delayed Release; Take one tablet every morning before breakfast on an empty stomach for stomach Rx By: Jose Palomares; Dispense: 0 Days ; #:30 Tablet; Refill: 2;For: Upper abdominal pain of unknown etiology; KAYLI = N; Verified Transmission to [facility]; Last Updated By: Belen Lim; 2020 12:21:32 [...] Problems History of Colonoscopy dec 2018 in [place] History of Esophagogastroduodenoscopy dec 2018 in [place] History of Knee arthroscopy Family History Mother [...] Vital Signs Recorded: 11Jan2020 11:47AM Heart Rate71 Ubarynjq982 Ulhcnkkln17 Height5 ft 9 in Axesbm125 lb 6 oz BMI Fllqnlthjs58.13 BSA Calculated1.9 O2 Ibbneuqawv21 Physical Exam Exam: Const: . Vital signs [...] Palomares DO; 2020 4:07PM EST (Author) Normal [facility] Initial Visit (Gastroenterol ogy)on 12-24-2019 Initial Visit [...] be obtained from your family doctor and [facility] for review. 2. Start Benefiber 1-2 teaspoons every morning. This is oecd-edn-rumknxf fiber. 3. Increase dicyclomine 20 mg 3 times a day a half hour before meals. A new prescription was sent to your pharmacy today 4. Start [employer] 2 capsules every morning for a probiotic. This is bgos-stu-rbbbaeg. 5. 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 She has had persistent nausea which was severe initially at the onset of her symptoms in July occurring before and after bowel movements. After starting dicyclomine her nausea has improved. She has been to the [facility] emergency department in August and again last [...] Problems History of Colonoscopy dec 2018 in [place] History of Esophagogastroduodenoscopy dec 2018 in [place] History of Knee arthroscopy Family History Mother [...] Vital Signs Recorded: 24Dec2019 07:53AM Heart Rate94 Kmjwgbbo554 Geymerhbb05 Height5 ft 9 in Qonfss930 lb 4 oz BMI Xrqfsnwccy00.7 BSA Calculated1.91 O2 Eqdznoaecc50 Physical Exam Exam: Const: . Vital signs [...] Dr. Bret Gomez MD Work Phone: [facility] 05-16-2025 16:00-0400 Heart rate 70 /min Dr. Bret Gomez MD Work Phone: [facility] 05-16-2025 16:00-0400 Respiratory rate 14 /min Dr. Bret Gomez MD Work Phone: [facility] 05-16-2025 16:00-0400 SaO2% (BldA) [Mass fraction] 99 % Dr. Bret Gomez MD Work Phone: [facility] 05-16-2025 16:00-0400 Systolic blood pressure 141 mm[Hg] Dr. Bret Gomez MD Work Phone: [facility] 05-16-2025 14:55-0400 Body temperature 98.1 [degF] Dr. Bret Gomez MD Work Phone: 8(334)[phone] [place] [address] 05-16-2025 11:39-0400 Body height 175.[address] Bret Gomez MD Work Phone: 3(495)[phone] [place] [address] 05-16-2025 11:39-0400 Body mass index (BMI) [Ratio] 24.9 kg/m2 Dr. Bret Gomez MD Work Phone: 4(086)858-455571 [address] 05-16-2025 11:39-0400 Body weight 76.[address] Bret Gomez MD Work Phone: 2(458)296-235712 [place] [address] 05-04-2025 12:55-0400 Body height 175.[address] Bret Gomez MD Work Phone: 9(367)037-459212 [place] [address] 05-04-2025 12:55-0400 Body mass index (BMI) [Ratio] 25.8 kg/m2 Dr. Bret Gomez MD Work Phone: 9(780)640-835312 [place] [address] 05-04-2025 12:55-0400 Body weight 79.[address] Bret Gomez MD Work Phone: 1(662)807-204212 [place] [address] 03-21-2024 05:12-0400 Body temperature 97.7 [degF] Dr. Bret Gomez Work Phone: 5(520)609-549071 [address] 03-21-2024 05:12-0400 Diastolic blood pressure 68 mm[Hg] Dr. Bret Gomez Work Phone: 0(730)656-442771 [address] 03-21-2024 05:12-0400 Heart rate 82 /min Dr. Bret Gomez Work Phone: 8(241)533-744471 [address] 03-21-2024 05:12-0400 Respiratory rate 16 /min Dr. Bret Gomez Work Phone: 7(646)956-059718 [place] [address] 03-21-2024 05:12-0400 SaO2% (BldA) [Mass fraction] 91 % Dr. Bret Gomez Work Phone: 4(258)957-908118 [place] [address] 03-21-2024 05:12-0400 Systolic blood pressure 127 mm[Hg] Dr. Bret Gomez Work Phone: [facility] 03-21-2024 03:27-0400 Body height 175.[address] Bret Gomez Work Phone: [facility] 03-21-2024 03:27-0400 Body mass index (BMI) [Ratio] 26.5 kg/m2 Dr. Bret Gomez Work Phone: [facility] 03-21-2024 03:27-0400 Body weight 81.[address] Bret Gomez Work Phone: [facility] 10-29-2023 08:50-0500 Body temperature 97.7 [degF] Dr. Bret Gomez Work Phone: [facility] 10-29-2023 08:50-0500 Diastolic blood pressure 60 mm[Hg] Dr. Bret Gomez Work Phone: [facility] 10-29-2023 08:50-0500 Heart rate 59 /min Dr. Bret Gomez Work Phone: [facility] 10-29-2023 08:50-0500 Respiratory rate 16 /min Dr. Bret Gomez Work Phone: [facility] 10-29-2023 08:50-0500 SaO2% (BldA) [Mass fraction] 97 % Dr. Bret Gomez Work Phone: [facility] 10-29-2023 08:50-0500 Systolic blood pressure 109 mm[Hg] Dr. Bret Gomez Work Phone: [facility] 10-29-2023 07:04-0500 Body height 175.[address] Bret Gomez Work Phone: [facility] 10-29-2023 07:04-0500 Body mass index (BMI) [Ratio] 26 kg/m2 Dr. Bret Gomez Work Phone: [facility] 10-29-2023 07:04-0500 Body weight [address] Bret Gomez Work Phone: [facility] 10-23-2022 09:00-0500 Body temperature 97 [degF] Dr. Bret Gomez Work Phone: [facility] Work Phone: 10-23-2022 09:00-0500 Diastolic blood pressure 96 mm[Hg] Dr. Bret Gomez Work Phone: [facility] Work Phone: 10-23-2022 09:00-0500 Heart rate 58 /min Dr. Bret Gomez Work Phone: [facility] Work Phone: 10-23-2022 09:00-0500 Respiratory rate 18 /min Dr. Bret Gomez Work Phone: [facility] Work Phone: 10-23-2022 09:00-0500 SaO2% (BldA) [Mass fraction] 98 % Dr. Bret Gomez Work Phone: [facility] Work Phone: 10-23-2022 09:00-0500 Systolic blood pressure 114 mm[Hg] Dr. Bret Gomez Work Phone: [facility] Work Phone: 10-23-2022 07:48-0500 Body height 175.[address] Bret Gomez Work Phone: [facility] Work Phone: 10-23-2022 07:48-0500 Body mass index (BMI) [Ratio] 26 kg/m2 Dr. Bret Gomez Work Phone: [facility] Work Phone: 10-23-2022 07:48-0500 Body weight [address] Bret Gomez Work Phone: [facility] Work Phone: 08-28-2022 11:34-0400 Body mass index (BMI) [Ratio] 25.9 kg/m2 Dr. Bret Gomez Work Phone: [facility] Work Phone: 08-28-2022 11:34-0400 Body weight 79.[address] Bret Gomez Work Phone: [facility] Work Phone: 08-28-2022 11:34-0400 Diastolic blood pressure 84 mm[Hg] Dr. Bret Gomez Work Phone: [facility] Work Phone: 08-28-2022 11:34-0400 Heart rate 53 /min Dr. Bret Gomez Work Phone: [facility] Work Phone: 08-28-2022 11:34-0400 SaO2% (BldA) [Mass fraction] 56 % Dr. Bret Gomez Work Phone: [facility] Work Phone: 08-28-2022 11:34-0400 Systolic blood pressure 137 mm[Hg] Dr. Bret Gomez Work Phone: [facility] Work Phone: 05-15-2022 14:54-0400 Body height 175.[address] Bret Gomez Work Phone: [facility] Work Phone: 05-15-2022 14:54-0400 Body mass index (BMI) [Ratio] 25.8 kg/m2 Dr. Bret Gomez Work Phone: [facility] Work Phone: 05-15-2022 14:54-0400 Body weight 79.[address] Bret Gomez Work Phone: [facility] Work Phone: 05-15-2022 14:54-0400 Diastolic blood pressure 87 mm[Hg] Dr. Bret Gomez Work Phone: [facility] Work Phone: 05-15-2022 14:54-0400 Heart rate 64 /min Dr. Bret Gomez Work Phone: [facility] Work Phone: 05-15-2022 14:54-0400 SaO2% (BldA) [Mass fraction] 96 % Dr. Bret Gomez Work Phone: [facility] Work Phone: 05-15-2022 14:54-0400 Systolic blood pressure 136 mm[Hg] Dr. Bret Gomez Work Phone: [facility] Work Phone: 05-08-2022 13:23-0400 Body temperature 97 [degF] Dr. Bret Gomez Work Phone: [facility] Work Phone: 05-08-2022 13:23-0400 Diastolic blood pressure 63 mm[Hg] Dr. Bret Gomez Work Phone: [facility] Work Phone: 05-08-2022 13:23-0400 Heart rate 71 /min Dr. Bret Gomez Work Phone: [facility] Work Phone: 05-08-2022 13:23-0400 Respiratory rate 16 /min Dr. Bret Gomez Work Phone: [facility] Work Phone: 05-08-2022 13:23-0400 SaO2% (BldA) [Mass fraction] 100 % Dr. Bret Gomez Work Phone: [facility] Work Phone: 05-08-2022 13:23-0400 Systolic blood pressure 120 mm[Hg] Dr. Bret Gomez Work Phone: [facility] Work Phone: 05-08-2022 11:20-0400 Body mass index (BMI) [Ratio] 25 kg/m2 Dr. Bret Gomez Work Phone: [facility] Work Phone: 05-08-2022 11:20-0400 Body weight [address] Bret Gomez Work Phone: [facility] Work Phone: 01-25-2022 12:02-0500 Diastolic blood pressure 77 mm[Hg] Dr. Bret Gomez Work Phone: [facility] Work Phone: 01-25-2022 12:02-0500 Heart rate 68 /min Dr. Bret Gomez Work Phone: [facility] Work Phone: 01-25-2022 12:02-0500 Respiratory rate 16 /min Dr. Bret Gomez Work Phone: [facility] Work Phone: 01-25-2022 12:02-0500 SaO2% (BldA) [Mass fraction] 98 % Dr. Bret Gomez Work Phone: [facility] Work Phone: 01-25-2022 12:02-0500 Systolic blood pressure 131 mm[Hg] Dr. Bret Gomez Work Phone: [facility] Work Phone: 01-25-2022 09:25-0500 Body mass index (BMI) [Ratio] 25.2 kg/m2 Dr. Bret Gomez Work Phone: [facility] Work Phone: 01-25-2022 09:25-0500 Body temperature 96.9 [degF] Dr. Bret Gomez Work Phone: [facility] Work Phone: 01-25-2022 09:25-0500 Body weight 77.[address] Bret Gomez Work Phone: [facility] Work Phone: Encounters Encounter Date Encounter Type Care Provider Facility Start: 05-16-2025 Evaluation and management of inpatient Dr. Marilin Yuen MD -Progressive Care Unit Work Phone: Start: 05-16-[address] Bret Gomez MD Work Phone: [facility] Work Phone: Start: 05-04-2025 End: 05-04-[address] Kaiser Cee MD -[facility] Start: 05-04-2025 End: 05-04-[address] 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 [facility] Start: 10-19-2024 End: 10-19-2024 ambulatory Ras [facility] ADVERTISING SPECIALIST Facility:[facility] Start: 09-27-2024 End: 09-27-2024 ambulatory [facility] Facility:[facility] Start: 08-12-2024 End: 08-12-2024 ambulatory [facility] dEson Facility:[facility] Start: 08-04-2024 End: 08-04-2024 ambulatory Gumaroshi Sandhu Facility:[facility] Start: 07-28-2024 Encounter for genera l adult medical examination without abnormal findings Gumaroryan Sandhu [facility] Start: 07-16-2024 ambulatory Gumaro Sandhu Facility :[facility] Start: 07-16-2024 End: 07-16-2024 ambulatory [employer] Facility:[facility] Start: 07-08-2024 End: 07-08-2024 ambulatory Bret Gomez Facility:[facility] Start: 07-06-2024 End: 07[facility]06-[facility] Start: 03-21-2024 End: 03-21-2024 Emergency department patient visit Dr. Bret Gomez Work Phone: [facility]-Emergency Department Work Phone: Start: 03-16-2024 End: 03-16-2024 Non-patient / Non-visit Dr. Bret Gomez Work Phone: [facility] Work Phone: Start: 03-16-2024 End: 03-16-[address] Bret Gomez Work Phone: [facility] Work Phone: Start: 03-16-2024 End: 03-16-[address] Bret Gomez Work Phone: [facility]-Pulmonary Services/Neurology Work Phone: Start: 03-08-2024 End: 03-08-[address] Bret Gomez Work Phone: [facility] Work Phone: Start: 03-08-2024 End: 03-08-[address] Bret Gomez Work Phone: [facility] Work Phone: Start: 02-23-2024 End: 02-23-[address] Bret Gomez Work Phone: [facility] Work Phone: Start: 02-23-2024 End: 02-23-[address] Bret Gomez [facility] Phone[facility] Work [facility] Start: 02-17-[address] Bret Gomez Work Phone: [facility]-Physical Therapy Work Phone: Start: 02-13-2024 End: 02-13-[address] Bret Gomez Work Phone: [facility] G[facility] Work Phone: Start: 10-29-2023 Non-patient / Non-visit Dr. Torsten Gomez Work Phone: [facility] Start: 10-29-2023 End: 10-29-2023 Admission to same day surgery center Dr. Bret Gomez Work Phone: [facility]-Endoscopy Work Phone: Start: 10-29-2023 End: 10-29-[address] Bret Gomez Work Phone: [facility] Work Phone: Start: 10-27-2023 End: 10-27-[address] Bret Gomez Work Phone: [facility] Work Phone: Start: 10-27-2023 End: 10-27-[address] Bret Gomez Work Phone: [facility]-Outpatient Breast Imaging Work Phone: Start: 09-30-2023 End: 09-30-2023 ambulatory [facility] Work Phone: Start: 09-30-2023 End: 09-30-2023 [facility] Start: 09-01-2023 End: 09-01-2023 ambulatory [facility] Work Phone: Start: 09-01-2023 End: 09-01-2023 [facility] Start: 03-19-2023 End: 03-19-2023 ambulatory [facility] Work Phone: Start: 03-19-2023 End: 03-19-2023 [facility] Start: 10-23-2022 Non-patient / Non-visit Dr. Torsten Gomez Work Phone: [facility] Start: 10-23-2022 End: 10-23-2022 Admission to same day surgery center Dr. Bret Gomez Work Phone: [facility]-Endoscopy Start: 10-23-2022 End: 10-23-[address] Bret Gomez Work Phone: [facility] Work Phone: Start: 10-01-2022 End: 10-01-[address] Bret Gomez Work Phone: [facility]-Outpatient Bone Densitometry Start: 09-25-2022 End: 09-25-[address] Bret Gomez Work Phone: [facility]-Outpatient Breast Imaging Start: 09-20-2022 End: 09-20-[address] Bret Gomez [facility] Start: 08-28-2022 End: 08-28-[address] Bret Gomez Work Phone: [facility] Gastroenterology Start: 06-10-2022 End: 06-10-[address] Bret Gomez Work Phone: [facility]-Nuclear Medicine, [facility] Start: 05-22-2022 End: 05-22-[address] Bret Gomez Work Phone: [facility]-Laboratory Start: 05-15-2022 End: 05-15-[address] Bret Gomez Work Phone: [facility]-Laboratory Start: 05-15-2022 End: 05-15-[address] Bret Gomez Work Phone: [facility] Gastroenterology Start: 05-08-2022 Non-patient / Non-visit Dr. Torsten Gomez Work Phone: [facility] Start: 05-08-2022 End: 05-08-2022 Admission to same day surgery center Dr. Bret Gomez Work Phone: [facility]-Endoscopy Start: 02-12-2022 End: 02-12-[address] Bret Gomez Work Phone: [facility] Gastroenter[facility] Start: 01-25-2022 End: 01-25-2022 Emergency department patient visit Dr. Bret Gomez Work Phone: [facility]-Emergency Department Procedures Date Procedure Procedure Detail Performing [...] Care Activity Detail Author Start: 05-17-2025 [facility] Start: 05-17-2025 [facility] Start: 05-17-2025 NM Heart Views W stress and W radionuclide IV [facility] Start: 05-17-2025 Nuclear Stress Test - Chemical Nuclear Stress Test - Chemical [facility] Start: 05-17-2025 Thyroid stimulating hormone measurement [facility] Start: 05-16-2025 Electrocardiographic procedure [facility] Start: 05-16-2025 Following clinical pathway protocol [facility] Start: 05-16-2025 Assessment of risk of venous thromboembolism [facility] Start: 05-16-2025 Care regimes management [facility] Start: 05-16-2025 CT angiography of head and neck CTA Head AND Neck W/ Contrast [facility] Start: 05-16-2025 Insertion of catheter into peripheral vein [facility] Start: 05-16-2025 Measuring intake and output [facility] Start: 05-16-2025 Notification of physician [facility] Start: 05-16-2025 Providing care according to standard [facility] Start: 05-16-2025 Provision of activity privileges [facility] Start: 05-16-2025 Tobacco use cessation education [facility] Start: 05-16-2025 End: 05-16-2025 [facility] Start: 05-16-2025 Verification routine [facility] Start: 05-16-2025 Admission procedure [facility] Start: 05-16-2025 End: 05-16-2025 [facility] Start: 05-04-2025 X-ray of knee, four or more views Knee 4 or More Views [facility] Start: 05-04-2025 XR Knee GE 4 Views [facility] Start: 10-29-2023 Egd transoral biopsy single/multiple EGD BIOPSY SINGLE/MULTIPLE [facility] Start: 10-29-2023 Patient discharge [facility] Start: 10-23-2022 Patient discharge [facility] Work Phone: Start: 05-15-2022 Gastrin [Mass/volume] in Serum or Plasma [facility] Work Phone: Start: 05-08-2022 Colonoscopy w/biopsy single/multiple COLONOSCOPY AND BIOPSY [facility] Work Phone: Start: 05-08-2022 Colsc flx w/rmvl of tumor polyp lesion snare tq COLONOSCOPY W/LESION REMOVAL [facility] Work Phone: Start: 05-08-2022 Egd transoral biopsy single/multiple EGD BIOPSY SINGLE/MULTIPLE [facility] Work Phone: Start: 05-08-2022 Patient discharge [facility] Work Phone: Alanine aminotransfe rase [Enzymatic activity/volume] in Serum or Plasma [facility] Albumin [Mass/volume ] in Serum or Plasma [facility] Alkaline phosphatase [Enzymatic activity/volume] in Serum or Plasma [facility] Anion gap in Serum or Plasma [facility] Bilirubin, total measurement [facility] BUN/Creatinine ratio [facility] Calcium [Mass/volume ] in Serum or Plasma [facility] Carbon dioxide, tota l [Moles/volume] in Central venous blood [facility] Cholesterol [Mass/vo lume] in Serum or Plasma [facility] Cholesterol in HDL [Mass/volume] in Serum or Plasma [facility] Creatinine [Mass/vol ume] in Serum or Plasma [facility] Erythrocyte mean cor puscular volume determination [facility] Gastrin [Mass/volume ] in Serum or Plasma [facility] Work Phone: Glucose [Mass/volume ] in Serum or Plasma [facility] Hematocrit [Volume F raction] of Blood [facility] Hemoglobin [Mass/vol ume] in Blood [facility] Leukocytes [#/volume] in Blood [facility] Low density lipoprot ein cholesterol measurement [facility] Magnesium measurement [facility] Mean corpuscular hem oglobin concentration determination [facility] Mean corpuscular hem oglobin determination [facility] Measurement of renal function [facility] Neutrophil count [facility] Neutrophil percent differential count [facility] Patient Education [facility] Work Phone: Patient referral [facility] Work Phone: Platelets [#/volume] in Blood [facility] Potassium measurement [facility] Red blood cell count [facility] Red cell distributio n width determination [facility] Serum chloride measurement [facility] Sodium measurement [facility] Total cholesterol:HD L ratio measurement [facility] Total protein measurement [facility] Triglycerides measurement [facility] Troponin T.cardiac [Mass/volume] in Serum or Plasma by High sensitivity method [facility] Urea nitrogen [Mass/ volume] in Serum or Plasma [facility] VLDL cholesterol measurement [facility] Immunizations Immunization Date Immunization Notes Care Provider Fa cility 06-13-[address] Fidelia Gomez Work Phone: [facility] Work Phone: 06-13-2014 pneumococcal vaccine , unspecified formulation Dr. Bret Gomez Work Phone: [facility] 08-30-[address] Bret Gomez Work Phone: [facility] Payers Date Payer Category Payer Self-pay [id number] 2024 Private Health Insurance [id number] Private Health Insurance [id number] Private Health Insurance [id number] Unknown [id number] Unknown [id number] Unknown [employer] [id number] Unknown [id number] 2.16.8 [id number] Unknown [id number] 2.16.8 [id number] Unknown [id number] 2.16.8 [id number] Unknown [id number] 2.16.8 [id number] Unknown [id number] 2.16.8 [id number] Unknown [id number] 2.16.8 [id number] Unknown [id number] 2.16.8 [id number] Unknown [id number] 2.16.8 [id number] Unknown [id number] 2.16.8 [id number] Unknown [id number] 2.16.8 [id number] Unknown [id number] 2.16.8 [id number] Social History Date Type Detail Facility Start: 05-15-2022 End: 03-21-2024 Tobacco smoking status [facility] Unknown if ever smoked [facility] Start: 06-11-2014 Occasional [facility] Start: 06-11-2014 None [facility] Start: 12-16-2019 Alone [facility] Start: 02-07-2021 Non-smoker [facility] Start: 1965 Sex Assigned At Female [facility] Start: 07-13-2024 End: 05-16-2025 Tobacco smoking status NHIS Ex-smoker (finding) [facility] Medical Equipment Procedure Code Equipment Code Equipment Original Text Equipment Identifier Dates Total cholecystectomy with exploration of common bile duct CLIP,RICKY [facility] FDA Start: 02-08-2021 Total cholecystectomy with exploration of common bile duct CLIP,HEMAPRIL [employer] [facility] FDA Start: 02-08-2021 Total cholecystectomy with [...] [facility] with [facility] of common bile duct [facility] Start: 02-08-2021 Total cholecystectomy with exploration of common bile duct [facility] Start: 02-08-2021 Total cholecystectomy with exploration of common bile duct [facility] Start: 02-08-2021 Total cholecystectomy with exploration of common bile duct [facility] Start: 02-08-2021 Total [facility]ole[facility] with exploration of common bile duct [facility] FDA Start: 02-08-2021 Total cholecystectomy with exploration of common bile duct [facility] [employer] [facility] FDA Start: 02-08-2021 Total cholecystectomy with exploration of common bile duct CLIP,[facility] [employer] FDA Start: 02-08-2021 Goals Date Patient Goal Desired Activity /State Mental Status Date Assessment Result Facility 05-16-2025 Cognitive function Voice/Name [facility] Work Phone: 10-29-2023 Cognitive function Voice/Name [facility] Work Phone: 10-23-2022 Cognitive function Voice/Name [facility] Work Phone: 05-08-2022 Cognitive function Voice/Name [facility] Work Phone: Clinical Notes 10-29-2023 to 05-16-2025 Note Date & Type Note Facility 05-16-2025 Discharge summary [facility] 05-16-2025 Radiology Diagnostic study note [facility] Imaging Services [address] [place] [address] Brain/Head without Contrast MR#: [id number] Acct: [id number] Name: PHILIPPEQI A Rep #: [id number] : 1965 F 60 From: Genaro Carrillo MD PCP: Dr. Bret Gomez MD Status: REG ER Study:Brain/Head without Contrast Date of Exa m: 05/16/25 Exam# [id number] Ordering Dr: Ese Scruggs DO EXAM: NONCONTRAST [...] Gomez MD; Dr. Aleks Scruggs DO ~ Straw Hat Plunger Operator: Signed [facility] 05-16-2025 Discharge summary Note Date/Time May 16, 2025 3:03pm [facility] Medical Records Department [address] [place] [address] Emergency Department Summary 05/16/25 MR#: [id number] Acct: [id number] Name: QI PHILIPPE Rep #:[id number] : 1965 60 From: Aleks Scruggs DO PCP: Dr. Bret Gomez MD Status:[facility] ER Location: ED HPI History of Present [...] previous heart attacks and open heart surgeries. [facility] Medical History Abdominal pain Fatty liver High [...] following commands knew that she was at [facility] year is 2024 Skin: Warm, dry, [...] with a rate of 72 bpm with CA interval 144. Patient's chest x-ray reviewed by [...] (Auto) 73.0 H Lymph % (Auto) 20.8 [place] % (Auto) 5.3 Eos % (Auto) 0.3 [...] is identified in the chest. Reading Location: [facility] Brain CT 05/16/25 13:04 IMPRESSION: No acute intracranial pathology. Reading Location: [facility] Discharge Plan Triage Chief Complaint: Chest [...] MD [Primary Care Provider] - Print Language: Venezuelan Disposition Disposition: Acute Care Hospital [facility] What to do if you have Problems For any increased pain, shortness of breath, bleeding, nausea or vomiting, chestpain, or any unexpected problems, contact your Primary Care Provider. Call [facility] ([phone]) or report to the closest Emergency Room. Call 911 if necessary. 05/16/25 1503 <Electronically signed by Aleks Scruggs DO> Cosigner Signature (if applicable): CC: Dr. Bret Gomez MD ~ Signed [facility] Work Phone: 1(381) 408-404906-23-2025 Radiology Diagnostic study note [facility] Imaging Services [address] [place], [place] [id number] Chest 1 View (Portable) MR#: [id number] Acct: [id number] Name: QI PHILIPPE Rep #: [id number] : 1965 F 60 From: Genaro Carrillo MD PCP: Dr. Bret Gomez MD Status: PRE ER Study:Chest 1 View (Portable) Date of Exam: 05/16/25 Exam# [id number] Ordering Dr: Provider ,Ed P. PROCEDURE: CHEST [...] Bret Gomez MD; ED PHYSICIAN PROVIDER ~ Straw Hat Plunger Operator: Signed [facility]06-11-2025 Evaluation note* Diagnosis Onset Date Resolution Status Admit Date Iliotibial band syndrome of left side acute May 04, 2025 12:49pm Left knee sprain acute April 12:49pm Chest pain acute May 16 3:33pm [facility] Work Phone: 1(760) 852-710208-23-2024 [facility] System Medical Records Department [address] [place] [address] History Physical Exam 07/16/24 1305 MR#: [id number] Acct: [id number] Name: QI PHILIPPE Rep #: [id number] : 1965 59 From: Gumaro Sandhu DO PCP: Dr. Bret Gomez MD Status:[facility] Location: [place] [address] History and Physical Date of Admission: 07/16/24 [...] and oriented x3 Quality Reporting Tobacco Screening ([facility] 138) Smoking Status: Former smoker Assessment and [...] Dr. Bret Gomez MD; DO [facility] Hospital Discharge instructions Additional Instructions Please continue [...] ER should you have any [facility] Work Phone: 1(723) 738-652812-06-2023 Procedure [facility] 10-29-2023 Procedure [facility]12-06-2023 History and physical note Author Gumaro Sandhu [facility] October 29, 2023 6:29am Note Date/Time October 29, 2023 6 :29am [facility] System Medical Records Department [address] [place] [address] History & Physical Exam 10/29/2328 MR#: [id number] Acct: [id number] Name: QI PHILIPPE Rep #:[id number] : 1965 58 From: Gumaro Friend DO PCP: Dr. Bret Gomez MD Status:[facility] Location: [place] [address] History and Physical Date of Admission: 10/29/23 [...] gastrin 929 (0-115), chromogranin A 459 (0-101). [place] to be elevated due to PPI. Her [...] and oriented x3 Quality Reporting Tobacco Screening ([facility] 138) Smoking Status: Former smoker Assessment and [...] Gomez MD; Gumaro Sandhu DO~ Signed [facility] Work Phone: Evaluation note* Diagnosis Onset Date Resolution Status Diarrhea acute FH: colon cancer acute GERD (gastroesophageal reflux disease) acute Hx of colonic polyp acute RUQ pain acute Diverticula of colon acute Gastric ulcer acute GERD (gastroesophageal reflux disease) acute [facility] Work Phone: Evaluation note* Diagnosis Onset Date Resolution Status Diverticula of colon acute Gastric ulcer acute GERD (gastroesophageal reflux disease) acute [facility] Work Phone: Evaluation note* Diagnosis Onset Date Resolution Status Gastric ulcer acute Hypergastrinemia acute [facility] Work Phone: Evaluation noteNo assessment information available [facility] Work Phone: Evaluation note* Diagnosis Onset Date Resolution Status Diverticula of colon acute Gastric ulcer acute GERD (gastroesophageal reflux disease) acute Hypergastrinemia acute [facility] Work Phone[facility] Work Phone: Reason for referral (narrative)No reason for [facility] Work Phone: Summary Purpose Family History Relationship Condition Age at Onset Recorded Date/T pao mother Malignant neoplasm of colon Unknown Coronary artery disease Unknown Hypertension Unknown aunt Malignant neoplasm of colon Unknown father Coronary artery disease Unknown Advance Directives Advance Directive Response Recorded Date/ Time Advance Directives No June 11 4:14pm Living Will No May 01, 2022 3 :20pm Power of Medical Billing Assistant No May 01, 2022 3:20pm Advance Directive Response Recorded Date/ Time Advance Directives No June 11 3:14pm Living Will No October 18, 022 11:21am Power of Medical Billing Assistant No October 18, 2022 11:21am Advance Directive Response Recorded Date/ Time Advance Directives No June 11 4:14pm Living Will No October 18, 022 12:21pm Power of Medical Billing Assistant No October 18, 2022 12:21pm Advance Directive Response Recorded Date/ Time Advance Directives No June 11 3:14pm Living Will No October 28 8:49am Power of Medical Billing Assistant No October 28, 2023 8:49am Advance Directive Response Recorded Date/ Time Advance Directives No June 11 4:14pm Living Will No October 28 9:49am Power of Medical Billing Assistant No October 28, 2023 9:49am Advance Directive Response Recorded Date/ Time Advance Directives No June 11 4:14pm Living Will No March 21, 2024 3:32am Power of Medical Billing Assistant No March 21 3:32am Advance Directive Response Recorded Date/ Time Advance Directives No June 11 4:14pm Advance Directive Response Recorded Date/ Time Do you have a Healthcare Power of Medical Billing Assistant? No May 16, 2025 12:21pm Advance Directives [...] section and content) DATE CREATED AUTHOR 04/07/2020 [employer] DATE CREATED AUTHOR AUTHOR'S ORGANIZ ATION 05/06/2025 [facility] Care Teams (unrecognized sec tion and [...] Dr. Bret Gomez MD Primary Care Provider, Attending P rovider Active Team Status: Inactive Member Role Status Dates Dr. Brte Gomez MD Primary Care Provider Active Dr. [...] BE BASED ON THE PRIMARY CLINICAL RECORDS. [facility] [employer] [facility]. provides no warranty or guarantee of the accuracy or completeness of information in this document.
[2025-05-17] VITALS (8 sets, daily range): BP systolic 111–131; BP diastolic 59–77; PULSE 53–65; RESP 14–18; TEMP 36.3–36.6; O2SAT 95–100; BMI 24.4
--- NOTE | 2025-05-17 05:55 | EKG12_ITS ---
Test Reason : stress test Blood Pressure : */* mmHG Vent. Rate : 62 BPM Atrial Rate : 62 BPM P-R Int : 158 ms QRS Dur : 72 ms QT Int : 444 ms P-R-T Axes : 47 34 28 degrees QTcB Int : 450 ms Normal sinus rhythm Normal ECG When compared with ECG of 16-May-2025 17:33, MANUAL COMPARISON REQUIRED DATA IS UNCONFIRMED Confirmed by ADALBERTO WILL, LUKE ([id number]), food editor ALETHAE MATSON ([id number]) on 05/17/2025 10:56:20 AM Referred By: Confirmed By: LUKE GLOVER MD
[2025-05-17] MEDS: Aspirin E.C. 81 MG Tablet PO (06:20)
[2025-05-17] MEDS: Lisinopril 20 MG Tablet PO (06:20)
[2025-05-17] MEDS: 0.9% Saline Lock 10 ML Syringe IV ×2 (06:22→11:30)
[2025-05-17 06:28] LABS: Absolute Lymphocyte Count 2.05 X10^3/uL (0.83-4.51); Absolute Neutrophil Count 3.6 X10^3/uL (2.0-7.7); Basophil# 0.02 X10^3/uL; Basophil% 0.3 % (0-1); Eosinophil# 0.13 X10^3/uL; Eosinophils% 2.1 % (0-5); Hematocrit 41.6 % (37-47); Hemoglobin 13.8 g/dL (12.0-15.0); Lymphocyte # 2.05 X10^3/ul (0.83-4.51); Lymphocyte % 32.5 % (19-41); Mean Corp Hgb Conc 33.2 g/dL (32-36); Mean Corpuscular Volume 87.4 fL (81-99); Mean Platelet Vol. 9.9 fl (6.2-12.0); Monocyte# 0.52 X10^3/uL; Monocyte% 8.3 % (0-10); NRBC Flagged by Analyzer 0 % (0-5); Neutrophil # 3.56 X10^3/uL (2.7-7.7); Neutrophil % 56.5 % (47-70); Platelet Count 341 K/mm3 (150-450); RBC Distribution Width SD 38.6 fl (35.1-43.9); Red Blood Count 4.76 M/mm3 (4.2-5.4); White Blood Count 6.3 K/mm3 (4.4-11.0)
[2025-05-17 06:44] LABS: Bedside Glucose 117 mg/dL (74-106)
[2025-05-17 07:12] LABS: ALB/GLOB Ratio 1.7 RATIO (0.9-2.4); AST(SGOT) 24 U/L (<=31); Alanine Aminotransfer ALT/SGPT 21 U/L (<=34); Albumin, Serum 4.6 g/dL (3.4-4.8); Alkaline Phosphatase 70 U/L (35-104); Anion Gap 13 (5-15); BUN 12 mg/dL (4-19); BUN/Creat Ratio 15.3 RATIO (10-20); Calcium,Total 9.2 mg/dL (7.6-11.0); Carbon Dioxide 23.3 mmol/L (21.0-32.0); Chloride 101 mmol/L (98-108); Cholesterol 150 mg/dL (<=200); EST Glomerular Filtration Rate 83 (>60); Globulin 2.7 g/dL (2.2-4.2); Glucose 117 mg/dL (70-99); High Density Lipoprotein 58 mg/dL; Low Density Lipoprotein Calc. 69 mg/dL; Magnesium 2.1 mg/dL (1.5-2.2); Potassium 3.6 mmol/L (3.3-5.1); Protein, Total 7.2 g/dL (5.9-8.4); Sodium Level 137 mmol/L (133-145); Total Bilirubin 0.55 mg/dL (0.00-1.30); Triglycerides 114 mg/dL; Very Low Density Lipoprotein 23 mg/dL (5-40); cholesterol:hdl ratio screen 2.58
[2025-05-17 07:29] LABS: Hemoglobin A1c 6.2 % (<=5.6)
--- NOTE | 2025-05-17 09:45 | PCM.PN.HOSP ---
Reason for Visit Reason for Visit: Diagnoses Chest pain, unspecified (05/16/25) Subjective Subjective No further chest pain. Still having intermittent paresthesias on her left. Very anxious about the MRI. Objective Data Objective Data Vital Signs: Vital Signs Temp Pulse Resp BP Pulse Ox O2 Del Method 36.3 C L 65 14 126/59 H 95 Room Air 05/17/25 08:02 05/17/25 08:02 05/17/25 08:02 05/17/25 08:02 05/17/25 08:02 05/17/25 08:02 Oxygen Delivery Method Room Air Weight: 75.1 kg Body Mass Index (BMI) 24.4 Lab / Micro Data 05/17/25 05:45 05/17/25 05:45 Labs: Laboratory Results - last 24 hr 05/16/25 12:05: WBC 7.1, RBC 4.77, Hgb 13.8, Hct 41.2, MCV 86.4, MCH 28.9, MCHC 33.5, RDW Std Deviation 37.5, RDW Coeff of Ollie 11.9, Plt Count 328, MPV 9.9, Immature Gran % (Auto) 0.300, Neut % (Auto) 73.0 H, Lymph % (Auto) 20.8, Baker % (Auto) 5.3, Eos % (Auto) 0.3, Baso % (Auto) 0.3, Absolute Neuts (auto) 5.2, Absolute Lymphs (auto) 1.48, Nucleated RBC % 0, Sodium 136, Potassium 3.6, Chloride 101, Carbon Dioxide 22.0, Anion Gap 13, BUN 13, Creatinine 0.74, Estim Creat Clear Calc 82.38, Est GFR (MDRD) Non-Af 91, BUN/Creatinine Ratio 16.9, Glucose 125 H, Calcium 9.6, Troponin T High Sens < 6 05/16/25 13:25: Troponin T Hi Sens 2 Hr < 6 05/16/25 16:34: Troponin T Hi Sens 4Hr < 6 05/16/25 19:52: POC Glucose 135 H 05/17/25 05:45: WBC 6.3, RBC 4.76, Hgb 13.8, Hct 41.6, MCV 87.4, MCH 29.0, MCHC 33.2, RDW Std Deviation 38.6, RDW Coeff of Ollie 12.0, Plt Count 341, MPV 9.9, Immature Gran % (Auto) 0.300, Neut % (Auto) 56.5, Lymph % (Auto) 32.5, Baker % (Auto) 8.3, Eos % (Auto) 2.1, Baso % (Auto) 0.3, Absolute Neuts (auto) 3.6, Absolute Lymphs (auto) 2.05, Nucleated RBC % 0, Sodium 137, Potassium 3.6, Chloride 101, Carbon Dioxide 23.3, Anion Gap 13, BUN 12, Creatinine 0.80, Estim Creat Clear Calc 76.20, Est GFR (MDRD) Non-Af 83, BUN/Creatinine Ratio 15.3, Glucose 117 H, Hemoglobin A1c 6.2 H, Calcium 9.2, Magnesium 2.1, Total Bilirubin 0.55, AST 24, ALT 21, Alkaline Phosphatase 70, Total Protein 7.2, Albumin 4.6, Globulin 2.7, Albumin/Globulin Ratio 1.7, Triglycerides 114, Cholesterol 150, LDL Cholesterol, Calc 69, VLDL Cholesterol 23, HDL Cholesterol 58, Cholesterol/HDL Ratio 2.58, TSH 1.220 05/17/25 06:18: POC Glucose 117 H Radiography Diagnostic Testing: Radiology Impression Chest X-Ray 05/16/25 12:25 IMPRESSION: No acute process is identified in the chest. Reading Location: [facility] Brain CT 05/16/25 13:04 IMPRESSION: No acute intracranial pathology. Reading Location: [facility] Head/Neck CTA 05/16/25 16:41 IMPRESSION: 1. No hemodynamically significant narrowing or large vessel occlusion of the head or neck vasculature. 2. Solid pulmonary nodule in the left upper lobe measuring 8 mm. Recommend dedicated chest CT. 3. Thyroid nodules measuring up to 1.6 cm. Recommend thyroid ultrasound. 4. Right-sided aortic arch. Reading Location: [facility] Physical Exam Const alert and no apparent distress HEENT head/scalp atraumatic and moist oral mucous membranes Resp normal respiratory effort, no retractions, no use of accessory muscles and clear to auscultation bilaterally Cardio regular rate, regular rhythm, S1 normal heart sound and S2 normal heart sound GI normal to inspection, nondistended, normoactive bowel sounds, soft to palpation, non-tender and non-distended Extremity normal to inspection and no clubbing, cyanosis or edema Neuro oriented x3, CN's II-XII intact bilaterally, moves all extremities, no focal motor deficits and no sensory deficits noted Sensorium / Orientation: awake and alert Coordination / Balance: [id number] test normal and [id number] test normal Speech: speech normal Assessment & Plan Assessment/Plan (1) Chest pain: PLAN: Stress test negative. No additional workup. (2) Paresthesia of left upper and lower extremity: PLAN: CTA head a neck was unremarkable. Head CT negative. Discussed with neurology who recommends an MRI of the brain and MRI of the cervical spine with and without contrast. Patient has extreme apprehension about the MRI just feeling and close due to her agoraphobia. Tried to reassure her that she has staff nearby to quickly help if she has any issues but try to reassure her that this test though 40 to 60 minutes will give us a clear picture about what may or may not be going on with her. Did tell her that we would give her some Ativan which she was receptive to for the having the MRI. Explained to her that if she is unable to have the MRI then we can check a CAT scan of her neck but an MRI would be certainly more preferable. PLAN: Plan Pulmonary nodule: outpt CT Thryoid nodule: outpt US. DM2: metformin held given CTA. SSI. a1c 6.2. HTN: lisinopril HCTZ. VTE prophylaxis: LMWH. Charges/Coding Visit Charges Inpatient E&M: 20175 Subs Hosp L2 NIHSS NIHSS Nursing Documentation NIHSS Nursing Documentation: NIHSS: Ischemic Stroke/TIA Start: 05/16/25 17:27 Text: For PCU Patients: NIH and Neuro Check every 4 Status: Active hours, PRN and with change in RN caregiver. Freq: [id number] Protocol: Activity Type Activity Date Activity User E-sign Co-sign Detail Recorded Client Recorded Date Recorded By Document 05/17/25 08:03 LING [id number] 05/17/25 08:07 LING 05/17/25 08:03 NIH Stroke Scale [NIHSS] A score of 0 is normal or asymptomatic . Total possible score is 42. Inpatient: RN or Physician to activate a stroke alert for onset of new stroke symptoms or with NIHSS increase >/= 3 points. Following change in neurological status, NIHSS will be performed per physician order or more frequently PRN. -1a. Level of Consciousness 0 - Alert; keenly responsive -1b. LOC Questions 0 - Answers BOTH questions correctly -1c. LOC Commands 0 - Performs BOTH tasks correctly -2. Best Gaze 0 - Normal -3. Visual 0 - No visual loss -4. Facial Palsy 0 - Normal symmetrical movements -5a. Left Arm 0 - No drift; arm holds 90 ( or 45) degrees for full 10 seconds -5b. Right Arm 0 - No drift; arm holds 90 ( or 45) degrees for full 10 seconds -6a. Left Leg 0 - No drift; leg holds 30- degree position for full 5 seconds -6b. Right Leg 0 - No drift; leg holds 30- degree position for full 5 seconds -7. Limb Ataxia 0 - Absent -8. Sensory 0 - Normal; no sensory loss -9. Best Language 0 - No aphasia; normal -10. Dysarthria 0 - Normal -11. Extinction and Inattention 0 - No abnormality -Total 0 Query Text:A score of 0 is normal or asymptomatic. Total possible score is 42 . ED: Notify Physician for NIHSS increase by > / = 3 points. Inpatient: RN or Physician to activate a stroke alert for NIHSS increase of > / = 3 points. Coma Scale [Assess] -Eye Opening Spontaneous -Motor Obeys Commands -Verbal Oriented [Total] -Coma Scale Total 15
--- NOTE | 2025-05-17 11:26 | NEURO.CONS ---
Assessment and Plan: Neuro Assessment/Plan PATRICK PHILIPPE is a 60 F with a past medical history of depression, anxiety, GERD, hypertension, diabetes, being evaluated by Teleneurology for L sided intermittent numbness and tingling in setting of chest and shoulder pain. At this time, symptoms of intermittent numbness not clearly consistent with neurovascular etiology. Appear to be related always to chest discomfort and possible represents referred pain. Exam is benign and no clear focal deficits event on peripheral testing. Will evaluate for possible [employer] etiology but this is unlikely. Plan: - MRI Brain w/wo con and MRI Cervical spine w/o con If above is normal, likely the L sided numbness and tingling are the result of referred pain from the chest discomfort she has. I personally attended this patient and spent a total time of 45 minutes evaluating this patient including clinical assessment, review of chart, medical history imaging, and determining appropriate treatment and workup. HPI Consult Data Date of Consult: 05/17/25 HPI Narrative HPI Narrative: PATRICK PHILIPPE, is a 60-year-old female history of depression, anxiety, GERD, hypertension, diabetes who presented [facility] ED 05/16/2025 for chest pain, nausea, numbness and tingling in the left arm and lower extremity. Reportedly her chest pain and numbness and tingling have been going on for several days, the chest pain has been on the left side of her chest towards her left shoulder that is progressively worsened, worse when she gets up and moves around and does get better with rest. No recent stress test. Does have family history of heart disease. CT head negative, troponins negative and workup otherwise unremarkable. Hospitalist contacted for admission for chest pain rule out. Patient evaluated at bedside and reports she is coming in for 2 reasons, the intermittent left arm and leg numbness and tingling and some left shoulder pain with some possible reflux-like symptoms. Patient reports that for several days she will get some numb and tingling feeling in her hand and below the knee on the left side that comes and goes does not seem to have any other associations, denies any recent falls or neck pain, did have a flareup of pain in her left knee for which she got a cortisone injection a week ago and that has improved. In regards to the concern for chest pain she reports she had some possible pressure-like sensation versus heartburn that has happened intermittently as well as some left shoulder pain however even when she does not have the heartburn the shoulder pain persists. Occasionally will feel lightheaded and dizzy with some nausea. Does report she has a history of ulcers and has been on sucralfate for the past 1 year, denies any abdominal pain, not taking any ibuprofen. Does have a slight headache but reports she gets them when she has allergies and sinus problems which she reports has been present over the past week Neurologic History Started with L shoulder pain and pain in the chest. Then started having numbness and tingling in the L arm and leg. Initially had some L pain in the jaw but not since. Nothing like this has happened before. No change in vision, did have nausea. No clumsiness, no difficulty walking. No headache with all this. Never had stroke, no hear conditions at baseline. On no blood thinners at home. No changes in sound of voice, difficulty getting words out etc. Patient is RH, no difficulty with maneuvering the L hand Chest pain was 4-5/10 and happened a couple times but not constant. Numbness and tingling in the arm and legs ar intermittent but no patterns to the numbness but coincide with pain in shoulder, numbness in the arms and legs, and chest pain coincide. No recent viral illness Neurologic Exam -? General: Laying comfortably in bed; in no acute distress. -? HENT: Normal oropharynx and mucosa. Normal external appearance of ears and nose. Exophthalmos. -? Neck: Supple, no pain or tenderness -? CV:? No peripheral edema. -? Pulmonary:? Normal respiratory effort. -? Ext: No cyanosis, edema, or deformity -? Skin: No rash. Normal palpation of skin.? -? Musculoskeletal: full range of motion; no joint tenderness. Normal digits and nails by inspection. No clubbing. -? NEURO: -? Mental Status: The patient was alert and oriented to time, place, and person. Normal recent/remote memory, concentration, and general fund of knowledge. -? Language: speech is clear.? Naming, repetition, fluency, and comprehension intact. -? Cranial Nerves: PERRL4 mm/brisk. EOMI, visual jimenez full, slight L facail asymmetry that is baseline, facial sensation intact, hearing intact, tongue midline, no evidence of atrophy or fibrillations. -? Motor: normal bulk, tone, and strength throughout. No pronator drift or satelliting. Upper and lower extremities equal bilaterally. -? Detailed strength exam as performed by the nurse/ANDRE and witnessed by the physician: R L SA 5 5 EE 5 5 EF 5 5 WE WF Cascara Bark Cutter 5 5 HF 5 5 KE KF 5 5 DF 5 5 PF Reflexes: biceps 1 1 patellar 2 2 -? Tone: is normal and bulk is normal -? Sensation- Intact to light touch bilaterally -? Coordination: No dysmetria on [id number], finger follow finger or [id number]. -? Gait- deferred [facility] Medical History Abdominal pain Fatty liver High cholesterol Easy bruising History of hiatal hernia History of ulceration Leg cramps Wears glasses Post-menopausal Depression Anxiety Back pain History of IBS Gastric reflux Former smoker History of stress test FH: colon cancer Hx of colonic polyp GERD (gastroesophageal reflux disease) IBS (irritable bowel syndrome) Arthritis Diabetes Chest pain Hypertension Home Medications ?Medication ?Instructions ?Recorded ?Last Taken ?Type lisinopril 20 1 tab PO DAILY 06/11/14 05/16/25 History mg-hydrochlorothiazide 25 mg tablet multivitamin 1 tab PO DAILY 02/06/21 05/16/25 History calcium 600 mg (as 1 tab PO Q12H 05/01/22 05/16/25 History carbonate)-vitamin D3 10 mcg (400 unit) tablet (Calcium 600 + D(3)) metformin 500 mg tablet 250 mg PO BID 10/28/23 05/16/25 History pravastatin 40 mg tablet 40 mg PO QHS 03/21/24 05/15/25 History omeprazole 40 mg capsule,delayed 40 mg PO QDAY #90 caps 04/15/25 05/16/25 Rx release sucralfate 1 gram tablet 1 g PO TID ulcers #90 tabs 04/15/25 05/16/25 Rx Allergy/AdvReac Type Severity Reaction Status Date / Time metronidazole Allergy Mild Rash Verified 05/16/25 11:40 Family History Mother Colon cancer CAD (coronary artery disease) Hypertension Aunt Colon cancer Father CAD (coronary artery disease) Surgical History H/O rotator cuff surgery History of esophagogastroduodenoscopy (EGD) S/P laparoscopic cholecystectomy S/P knee surgery Social History Smoking Status: Former smoker alcohol intake: current alcohol intake frequency: holidays/special occasions only Vital Signs Vital Signs Vital Signs: 05/16/25 11:39 05/16/25 12:20 05/16/25 12:38 Temperature 98.1 F Temperature Source Oral Pulse Rate 82 72 Pulse Strength Respiratory Rate 19 H 14 Respiratory Effort Respiratory Depth Respiratory Pattern Blood Pressure 164/80 H 129/75 H Blood Pressure Mean 108 93 Blood Pressure Source Blood Pressure Position Blood Pressure Location Pulse Ox 100 99 99 Oxygen Delivery Method Room Air Room Air Room Air 05/16/25 13:00 05/16/25 14:00 05/16/25 14:55 Temperature 98.1 F Temperature Source Pulse Rate 65 62 72 Pulse Strength Respiratory Rate 14 14 18 Respiratory Effort Respiratory Depth Respiratory Pattern Blood Pressure 143/88 H 122/72 H 133/78 H Blood Pressure Mean 106 88 96 Blood Pressure Source Blood Pressure Position Blood Pressure Location Pulse Ox 99 100 99 Oxygen Delivery Method Room Air Room Air 05/16/25 16:00 05/16/25 16:42 05/16/25 17:57 Temperature 98.3 F Temperature Source Oral Pulse Rate 70 65 Pulse Strength Respiratory Rate 14 16 Respiratory Effort Respiratory Depth Respiratory Pattern Blood Pressure 141/85 H 152/76 H Blood Pressure Mean 103 101 Blood Pressure Source Monitor Blood Pressure Position Sitting Blood Pressure Location Left Arm Pulse Ox 99 98 93 Oxygen Delivery Method Room Air Room Air Room Air 05/16/25 19:47 05/16/25 19:47 05/16/25 20:45 Temperature 97.4 F L Temperature Source Temporal Pulse Rate 64 Pulse Strength Normal (2+) Respiratory Rate 18 Respiratory Effort Normal Non-Labored Respiratory Depth Normal Respiratory Pattern Normal Blood Pressure 117/69 Blood Pressure Mean 85 Blood Pressure Source Monitor Blood Pressure Position Semi-Fowlers Blood Pressure Location Left Arm Pulse Ox 98 Oxygen Delivery Method Room Air Room Air 05/17/25 00:45 05/17/25 00:45 05/17/25 05:00 Temperature 97.6 F L 97.7 F L Temperature Source Temporal Temporal Pulse Rate 62 64 Pulse Strength Respiratory Rate 16 18 Respiratory Effort Normal Non-Labored Respiratory Depth Normal Respiratory Pattern Normal Blood Pressure 111/59 L 131/72 H Blood Pressure Mean 76 91 Blood Pressure Source Monitor Monitor Blood Pressure Position Supine Semi-Fowlers Blood Pressure Location Left Arm Left Arm Pulse Ox 96 100 Oxygen Delivery Method Room Air Room Air Room Air 05/17/25 07:40 05/17/25 07:48 05/17/25 08:02 Temperature 97.4 F L Temperature Source Oral Pulse Rate 65 Pulse Strength Respiratory Rate 14 Respiratory Effort Normal Non-Labored Respiratory Depth Normal Respiratory Pattern Normal Blood Pressure 126/59 H Blood Pressure Mean 81 Blood Pressure Source Monitor Blood Pressure Position Semi-Fowlers Blood Pressure Location Left Arm Pulse Ox 97 95 Oxygen Delivery Method Room Air Room Air Room Air 05/17/25 08:02 05/17/25 10:00 Temperature 97.4 F L Temperature Source Oral Pulse Rate 65 Pulse Strength Normal (2+) Respiratory Rate 14 Respiratory Effort Respiratory Depth Respiratory Pattern Blood Pressure 126/59 H Blood Pressure Mean 81 Blood Pressure Source Monitor Blood Pressure Position Semi-Fowlers Blood Pressure Location Left Arm Pulse Ox 95 Oxygen Delivery Method Room Air Weight Weight: 75.1 kg Body Mass Index (BMI) 24.4 EEG Results Procedure Details EEG Procedure Details: PATRICK PHILIPPE is a 60 year old F with a past medical history of , who presents for evaluation of Electroencephalogram on DATE at TIME Lab / Micro Data 05/17/25 05:45 05/17/25 05:45 Labs: Laboratory Results - last 24 hr 05/16/25 12:05: WBC 7.1, RBC 4.77, Hgb 13.8, Hct 41.2, MCV 86.4, MCH 28.9, MCHC 33.5, RDW Std Deviation 37.5, RDW Coeff of Ollie 11.9, Plt Count 328, MPV 9.9, Immature Gran % (Auto) 0.300, Neut % (Auto) 73.0 H, Lymph % (Auto) 20.8, [place] % (Auto) 5.3, Eos % (Auto) 0.3, Baso % (Auto) 0.3, Absolute Neuts (auto) 5.2, Absolute Lymphs (auto) 1.48, Nucleated RBC % 0, Sodium 136, Potassium 3.6, Chloride 101, Carbon Dioxide 22.0, Anion Gap 13, BUN 13, Creatinine 0.74, Estim Creat Clear Calc 82.38, Est GFR (MDRD) Non-Af 91, BUN/Creatinine Ratio 16.9, Glucose 125 H, Calcium 9.6, Troponin T High Sens < 6 05/16/25 13:25: Troponin T Hi Sens 2 Hr < 6 05/16/25 16:34: Troponin T Hi Sens 4Hr < 6 05/16/25 19:52: POC Glucose 135 H 05/17/25 05:45: WBC 6.3, RBC 4.76, Hgb 13.8, Hct 41.6, MCV 87.4, MCH 29.0, MCHC 33.2, RDW Std Deviation 38.6, RDW Coeff of Ollie 12.0, Plt Count 341, MPV 9.9, Immature Gran % (Auto) 0.300, Neut % (Auto) 56.5, Lymph % (Auto) 32.5, [place] % (Auto) 8.3, Eos % (Auto) 2.1, Baso % (Auto) 0.3, Absolute Neuts (auto) 3.6, Absolute Lymphs (auto) 2.05, Nucleated RBC % 0, Sodium 137, Potassium 3.6, Chloride 101, Carbon Dioxide 23.3, Anion Gap 13, BUN 12, Creatinine 0.80, Estim Creat Clear Calc 76.20, Est GFR (MDRD) Non-Af 83, BUN/Creatinine Ratio 15.3, Glucose 117 H, Hemoglobin A1c 6.2 H, Calcium 9.2, Magnesium 2.1, Total Bilirubin 0.55, AST 24, ALT 21, Alkaline Phosphatase 70, Total Protein 7.2, Albumin 4.6, Globulin 2.7, Albumin/Globulin Ratio 1.7, Triglycerides 114, Cholesterol 150, LDL Cholesterol, Calc 69, VLDL Cholesterol 23, HDL Cholesterol 58, Cholesterol/HDL Ratio 2.58, TSH 1.220 05/17/25 06:18: POC Glucose 117 H Imaging Radiology Impression Chest X-Ray 05/16/25 12:25 IMPRESSION: No acute process is identified in the chest. Reading Location: [facility] Brain CT 05/16/25 13:04 IMPRESSION: No acute intracranial pathology. Reading Location: [facility] Head/Neck CTA 05/16/25 16:41 IMPRESSION: 1. No hemodynamically significant narrowing or large vessel occlusion of the head or neck vasculature. 2. Solid pulmonary nodule in the left upper lobe measuring 8 mm. Recommend dedicated chest [address]. 3. Thyroid nodules measuring up to 1.6 cm. Recommend thyroid ultrasound. 4. Right-sided aortic arch. Reading Location: [id number] Active Medications Active Medications Active Medications: Current Medications Generic Name Dose Route Start Last Admin Trade Name Freq PRN Reason Stop Dose Admin Acetaminophen 650 mg 05/16/25 16:41 05/16/25 19:47 Acetaminophen 325 Mg Tablet PO 650 mg Q6H PRN PRN Administration Pain 1-10 Or Fever >100.7 Albuterol Sulfate 2.5 mg 05/16/25 16:41 Albuterol 2.5 Mg/3 Ml Vial.Neb. INHALATION Q2H PRN PRN SOB &/OR WHEEZING Aspirin 81 mg 05/17/25 08:00 05/17/25 06:20 Aspirin E.C. 81 Mg Tablet PO 81 mg BREAKFAST DAX Administration Atorvastatin Calcium 80 mg 05/16/25 22:00 05/16/25 19:47 Atorvastatin Calcium 80 Mg Tablet PO 80 mg QHS DAX Administration Enoxaparin Sodium 40 mg 05/17/25 10:00 Enoxaparin 40 Mg/0.4 Ml Syringe SC DAILY DAX Glucagon 1 mg 05/16/25 16:41 Glucagon 1 Mg/Ml Syringe IM X1 PRN Hypoglycemia Protocol Hydralazine HCl 5 mg 05/16/25 17:23 Hydralazine 20 Mg/Ml Vial IV 05/17/25 17:27 Q30M PRN maintain BP parameters with HR <60 Hydrochlorothiazide 25 mg 05/17/25 10:00 05/17/25 11:06 Hydrochlorothiazide 25 Mg Tablet PO Not Given DAILY DAX Protocol Sodium Chloride 1,000 mls @ 50 mls/hr 05/16/25 16:41 05/16/25 19:48 IV 05/17/25 12:40 50 mls/hr .Q20H DAX Administration Dextrose 250 mls @ 0 mls/hr 05/16/25 16:41 Dextrose 10%-Water IV .Q0M PRN HYPOGLYCEMIA Protocol As Directed Sodium Chloride 250 mls @ 15 mls/hr 05/16/25 16:43 IV .[id number] PRN Saline Flush Insulin Human Lispro 0 unit 05/16/25 22:00 05/17/25 06:22 Insulin Lispro 100 Unit/Ml Insuln.Pen SC Not Given ACHS DAX Protocol Labetalol HCl 10 - 20 mg 05/16/25 17:23 Labetalol 20 Mg/4 Ml Vial IV 05/17/25 17:27 Q10M PRN PRN maintain BP parameters with HR >/=60 Lisinopril 20 mg 05/17/25 10:00 05/17/25 06:20 Lisinopril 20 Mg Tablet PO 20 mg DAILY DAX Administration Protocol Melatonin 10 mg 05/16/25 16:41 Melatonin 3 Mg Tablet PO QHS PRN PRN INSOMNIA Ondansetron HCl 4 mg 05/16/25 16:41 Ondansetron 4 Mg/2 Ml Vial IV Q8H PRN PRN NAUSEA/VOMITING Pantoprazole Sodium 40 mg 05/17/25 10:00 05/17/25 11:07 Pantoprazole Sodium 40 Mg Tablet PO Not Given DAILY DAX Senna/Docusate Sodium 2 tablet 05/16/25 16:41 Senna/Docusate Sodium 1 Tablet PO BID PRN PRN Constipation Sodium Chloride 10 - 40 ml 05/16/25 16:43 05/17/25 06:22 0.9% Saline Lock 10 Ml Syringe IV 10 ml UD PRN Administration SALINE FLUSH Sucralfate 1 gm 05/17/25 07:00 05/17/25 06:22 Sucralfate 1 Gm Tablet PO Not Given TID@0700,1100,1600 [facility] NIHSS NIHSS Nursing Documentation NIHSS Nursing Documentation: NIHSS: Ischemic Stroke/TIA Start: 05/16/25 17:27 Text: For PCU Patients: NIH and Neuro Check every 4 Status: Active hours, PRN and with change in RN caregiver. Freq: [id number] Protocol: Activity Type Activity Date Activity User E-sign Co-sign Detail Recorded Client Recorded Date Recorded By Document 05/17/25 08:03 LING [id number] 05/17/25 08:07 LING 05/17/25 08:03 NIH Stroke Scale [NIHSS] A score of 0 is normal or asymptomatic . Total possible score is 42. Inpatient: RN or Physician to activate a stroke alert for onset of new stroke symptoms or with NIHSS increase >/= 3 points. Following change in neurological status, NIHSS will be performed per physician order or more frequently PRN. -1a. Level of Consciousness 0 - Alert; keenly responsive -1b. LOC Questions 0 - Answers BOTH questions correctly -1c. LOC Commands 0 - Performs BOTH tasks correctly -2. Best Gaze 0 - Normal -3. Visual 0 - No visual loss -4. Facial Palsy 0 - Normal symmetrical movements -5a. Left Arm 0 - No drift; arm holds 90 ( or 45) degrees for full 10 seconds -5b. Right Arm 0 - No drift; arm holds 90 ( or 45) degrees for full 10 seconds -6a. Left Leg 0 - No drift; leg holds 30- degree position for full 5 seconds -6b. Right Leg 0 - No drift; leg holds 30- degree position for full 5 seconds -7. Limb Ataxia 0 - Absent -8. Sensory 0 - Normal; no sensory loss -9. Best Language 0 - No aphasia; normal -10. Dysarthria 0 - Normal -11. Extinction and Inattention 0 - No abnormality -Total 0 Query Text:A score of 0 is normal or asymptomatic. Total possible score is 42 . ED: Notify Physician for NIHSS increase by > / = 3 points. Inpatient: RN or Physician to activate a stroke alert for NIHSS increase of > / = 3 points. Coma Scale [Assess] -Eye Opening Spontaneous -Motor Obeys Commands -Verbal Oriented [Total] -Coma Scale Total 15
[2025-05-17] MEDS: Acetaminophen 325 MG Tablet 650 MG PO (11:27)
[2025-05-17 12:28] LABS: Bedside Glucose 163 mg/dL (74-106)
--- NOTE | 2025-05-17 13:06 | MRI_ITS ---
PROCEDURE: SPINE CERVICAL W/WO CONTRAST 05/17/2025 REASON FOR EXAM: LEFT SIDED PARESTHESIA TECHNIQUE: SPINE CERVICAL W/WO CONTRAST Multiplanar and multisequence images were obtained with intravenous gadolinium-based contrast administration. CONTRAST: Clariscan VOLUME: 15 mL COMPARISON: CTA head and neck 05/16/2025 FINDINGS: Vertebrae: Cervical vertebral body heights are preserved. There is a subcentimeter ovoid T1 and T2 hyperintense lesion within the T2 spinous process which demonstrates fat suppression and is without enhancement, likely a hemangioma. Bone marrow signal is otherwise unremarkable. Alignment: Straightening of the normal cervical lordosis. There is 2 mm of retrolisthesis of C5 on C6. Spinal Cord: Cervical spinal cord is grossly unremarkable allowing for motion artifact, without identifiable enhancement. C2-3: No significant disc bulge. Mild facet arthropathy. No neural foraminal or spinal canal narrowing. C3-4: Mild disc bulge and facet arthrosis. Moderate left and mild right neural foraminal narrowing. No significant spinal canal narrowing. C4-5: Mild disc bulge and facet arthropathy. Mild bilateral neural foraminal narrowing and mild spinal canal narrowing. C5-6: Near-complete disc height loss with moderate disc bulge. Mild facet arthrosis. There is severe left and [id number] right neural foraminal narrowing, with moderate to severe spinal canal narrowing C6-7: Near-complete disc height loss with moderate disc bulge. Mild facet arthrosis. There is [id number]-he-[id number] right and moderate left neural foraminal narrowing, with moderate spinal canal narrowing C7-T1: Mild disc bulge with vkon-je-nwamxpsz facet arthrosis, resulting in moderate right neural foraminal narrowing. No significant left neural foraminal or spinal canal narrowing. Postcontrast images: No suspicious contrast enhancement. There is a subcentimeter left thyroid lobe nodule. MRI/Spine Cervical W/WO Contrast IMPRESSION: [id number] multilevel degenerative changes of the cervical spine, worst at C5-6 and C6-7 as detailed above. No abnormal cord signal or enhancement within the limitations of motion. Reading Location: [id number]
--- NOTE | 2025-05-17 13:06 | MRI_ITS ---
PROCEDURE: BRAIN W/WO CONTRAST 05/17/2025 REASON FOR EXAM: LEFT SIDED PARESTHESIA TECHNIQUE: BRAIN W/WO CONTRAST Multiplanar and multisequence images were obtained. CONTRAST: Clariscan VOLUME: 15 mL COMPARISON: CT and CTA of the head on 05/16/2025 FINDINGS: Brain: There are a few scattered foci of nonspecific increased T2/FLAIR signal in the deep and subcortical white matter. No restricted diffusion or abnormal enhancement. Ventricles: Unremarkable for age Major Intracranial Vessels: Flow voids are preserved. Sinuses: Mucous retention cysts or polyps in the right maxillary sinus and near the frontoethmoidal recess. Mastoids: Clear. MRI/Brain W/WO Contrast IMPRESSION: 1. No acute intracranial abnormality, to include no acute ischemia. 2. Minimal microvascular ischemic changes. Reading Location: [id number]
--- NOTE | 2025-05-17 14:08 | STRESSREP ---
Stress Test Report Pharmacologic myocardial perfusion stress test. 60-year-old lady with a history of chest pain Resting EKG demonstrates sinus rhythm with a rate of 68 bpm. Resting blood pressure is 116/70 mmHg. 0.4 mg of regadenoson was infused per usual protocol followed by rapid intravenous saline flush injection. Continuous EKG monitoring was performed. The maximum heart rate was 90 bpm which was 56% of max impacted heart rate the maximum workload was 1 metabolic equivalent. At rest there were no ST or T wave changes noted to suggest ischemia and at peak infusion nonspecific ST changes were noted which did not meet the criteria for ischemia. No clinical angina is noted. The final blood pressure was 110/60 mmHg. Myocardial perfusion protocol. 11.8 mCi of technetium 99m sestamibi was injected at rest. 0.4 mg of regadenoson was infused per usual protocol. At peak infusion 33.1 mCi of technetium 99m sestamibi was injected stress images were obtained stress and rest images were reconstructed and compared in the short axis vertical long and horizontal long axis. Gated images were also obtained. Perfusion SPECT analysis: Review of the stress images demonstrate normal uptake of tracer noted in all areas of the myocardium. The resting images similar demonstrated normal uptake of tracer noted in all areas of the myocardium. No areas of reversibility are noted to suggest ischemia and no previous infarct is noted. Gated SPECT analysis: The gated ejection fraction is 88%. Conclusion: Normal pharmacologic myocardial perfusion stress test. Preserved ejection fraction.
[2025-05-17] MEDS: Enoxaparin 40 MG/0.4 ML Syringe SC (14:17)
--- NOTE | 2025-05-17 15:36 | CHAPLAIN ---
Type of Pastoral Visit _x__ Initial Visit ___ Follow-up Visit ___ On-call Visit ___ General Patient Visit ___ Spiritual Assessment ___ Family Conference ___ Bereavement ___ Rapid Response ___ Code Blue ___ Other (describe below) Pastoral Care Referral From _x__ Patient ___ Family ___ Nurse ___ Physician ___ Web Marketing Coordinator ___ Supervisor [employer] ___ Other (describe below) Sacrament/Intervention _x__ Active listening ___ Anointing ___ Congregational ___ Bereavement ___ Communion _x__ Nicky exploration ___ _x__ Life review _x__ Prayer ___ Reconciliation ___ Sacrament of Sick _x__ Supportive presence ___ Wedding ___ Other (describe below) Pastoral Comments background information and current situation details are given by the patient; pt admits to some anxiety about having an MRI this afternoon but will rely on meds to get her through; talked through some of her feelings, expectations, and life experiences; pt used to be active in churches but is not anymore; pt does welcome prayer for her anxiety and speaks of some hope for good results
[2025-05-17] MEDS: Sucralfate 1 GM Tablet PO (16:37)
[2025-05-17] MEDS: LORazepam 1 MG Tablet 2 MG PO (16:56)
[2025-05-17 17:09] LABS: Bedside Glucose 98 mg/dL (74-106)
[2025-05-17] MEDS: Atorvastatin Calcium 80 MG Tablet PO (21:04)
--- NOTE | 2025-05-17 21:59 | PCM.HOSP.N ---
Hospitalist Note MRI brain without acute findings. MRI cervical spine w/ [id number] multilevel degenerative changes of the cervical spine, worst at C5-6 and C6-7 as detailed above. No abnormal cord signal or enhancement within the limitations of motion.
[2025-05-17 23:04] LABS: Bedside Glucose 85 mg/dL (74-106)
[2025-05-18 03:00] VITALS: PULSE 59
[2025-05-18 03:38] VITALS: BP 120/77; PULSE 55; RESP 17; TEMP 36.8; O2SAT 100
[2025-05-18] MEDS: Sucralfate 1 GM Tablet PO ×2 (06:22→11:23)
[2025-05-18 07:24] LABS: Bedside Glucose 112 mg/dL (74-106)
[2025-05-18 08:13] VITALS: O2SAT 96
--- NOTE | 2025-05-18 08:45 | PCM.PN.HOSP ---
Reason for Visit Reason for Visit: Diagnoses Chest pain, unspecified (05/16/25) Paresthesia of skin (05/16/25) Subjective Subjective Feels well. No events overnight. Objective Data Objective Data Vital Signs: Vital Signs Temp Pulse Resp BP Pulse Ox O2 Del Method 36.8 C 55 L 17 120/77 100 Room Air 05/18/25 03:38 05/18/25 03:38 05/18/25 03:38 05/18/25 03:38 05/18/25 03:38 05/18/25 03:42 Oxygen Delivery Method Room Air Weight: 75.1 kg Body Mass Index (BMI) 24.4 Intake & Output: Intake and Output for Last 24 Hours 05/16/25 05/17/25 05/18/25 23:59 23:59 23:59 Intake Total 1000 / 1000 Balance 1000 / 1000 Lab / Micro Data 05/17/25 05:45 05/17/25 05:45 Labs: Laboratory Results - last 24 hr 05/17/25 12:10: POC Glucose 163 H 05/17/25 16:35: POC Glucose 98 05/17/25 21:03: POC Glucose 85 05/18/25 06:23: POC Glucose 112 H Radiography Diagnostic Testing: Radiology Impression Brain MRI 05/17/25 13:06 IMPRESSION: 1. No acute intracranial abnormality, to include no acute ischemia. 2. Minimal microvascular ischemic changes. Reading Location: [facility] Cervical Spine MRI 05/17/25 13:06 IMPRESSION: Zmjwtprf-lb-[id number] multilevel degenerative changes of the cervical spine, worst at C5-6 and C6-7 as detailed above. No abnormal cord signal or enhancement within the limitations of motion. Reading Location: [facility] Physical Exam Const alert and no apparent distress HEENT head/scalp atraumatic and moist oral mucous membranes Neuro Sensorium / Orientation: awake, alert, oriented to person and oriented to place Assessment & Plan Assessment/Plan (1) Chest pain: PLAN: Stress test negative. No additional workup. (2) Paresthesia of left upper and lower extremity: PLAN: CTA head a neck was unremarkable. Head CT negative. MRI brain negative. MRI cervical spine. Mazzjicd-hk-mvfmfu multilevel degenerative changes of the cervical spine, worst at C5-6 and C6-7 as detailed above. No abnormal cord signal or enhancement within the limitations of motion. Unclear if patient is having some nerve root impingement due to this degenerative changes in her cervical spine. Did recommend that she a follow-up with spine surgery to have them evaluate that to see if there would be anything necessary to do. PLAN: Plan Pulmonary nodule: Measuring 8 mm. Patient states that she has been told she has had a pulmonary nodule in the past. Outpt CT Thryoid nodule: Reviewed her records through [facility] and I did not see any reports of this in the past. Did discuss this with the patient. It is measuring 1.6 cm. Outpt US. DM2: metformin held given CTA. SSI. a1c 6.2. HTN: lisinopril HCTZ. VTE prophylaxis: LMWH. NIHSS NIHSS Nursing Documentation NIHSS Nursing Documentation: NIHSS: Ischemic Stroke/TIA Start: 05/16/25 17:27 Text: For PCU Patients: NIH and Neuro Check every 4 Status: Complete hours, PRN and with change in RN caregiver. Freq: [id number] Protocol: Activity Type Activity Date Activity User E-sign Co-sign Detail Recorded Client Recorded Date Recorded By Document 05/17/25 20:49 [id number] 05/17/25 20:53 05/17/25 20:49 NIH Stroke Scale [NIHSS] A score of 0 is normal or asymptomatic . Total possible score is 42. Inpatient: RN or Physician to activate a stroke alert for onset of new stroke symptoms or with NIHSS increase >/= 3 points. Following change in neurological status, NIHSS will be performed per physician order or more frequently PRN. -1a. Level of Consciousness 0 - Alert; keenly responsive -1b. LOC Questions 0 - Answers BOTH questions correctly -1c. LOC Commands 0 - Performs BOTH tasks correctly -2. Best Gaze 0 - Normal -3. Visual 0 - No visual loss -4. Facial Palsy 0 - Normal symmetrical movements -5a. Left Arm 0 - No drift; arm holds 90 ( or 45) degrees for full 10 seconds -5b. Right Arm 0 - No drift; arm holds 90 ( or 45) degrees for full 10 seconds -6a. Left Leg 0 - No drift; leg holds 30- degree position for full 5 seconds -6b. Right Leg 0 - No drift; leg holds 30- degree position for full 5 seconds -7. Limb Ataxia 0 - Absent -8. Sensory 0 - Normal; no sensory loss -9. Best Language 0 - No aphasia; normal -10. Dysarthria 0 - Normal -11. Extinction and Inattention 0 - No abnormality -Total 0 Query Text:A score of 0 is normal or asymptomatic. Total possible score is 42 . ED: Notify Physician for NIHSS increase by > / = 3 points. Inpatient: RN or Physician to activate a stroke alert for NIHSS increase of > / = 3 points. Coma Scale [Assess] -Eye Opening Spontaneous -Motor Obeys Commands -Verbal Oriented [Total] -Coma Scale Total 15
[2025-05-18] MEDS: hydroCHLOROthiazide 25 MG Tablet PO (08:50)
[2025-05-18] MEDS: Aspirin E.C. 81 MG Tablet PO (08:50)
[2025-05-18] MEDS: Enoxaparin 40 MG/0.4 ML Syringe SC (08:50)
[2025-05-18] MEDS: Lisinopril 20 MG Tablet PO (08:51)
[2025-05-18] MEDS: Pantoprazole Sodium 40 MG Tablet PO (08:51)
[2025-05-18 09:33] VITALS: BP 107/64; PULSE 70; RESP 16; TEMP 36.3; O2SAT 98
[2025-05-18 10:33] VITALS: BMI 24.4
[2025-05-18 11:50] LABS: Bedside Glucose 100 mg/dL (74-106)
--- NOTE | 2025-05-18 12:47 | DS.PCM_ITS ---
Providers Date of Admission: 05/16/25 Primary Care Physician: Dr. Bret Gomez MD Consultations 05/16/25 17:27 Consult: Tele-Neurology Routine Consulting Provider: [facility] Reason for Consult: waxing and waning left arm and below left knee tingling/nmbness EMERGENT Consult: No MD Notified: Yes Date Notified: 05/16/25 Time Notified: 17:41 Method of Notification: Answering Service Nursing Unit Staff Notify [facility] of Tele-Neurology Consult: Yes Reason For Visit: CHEST PAIN Diagnosis Discharge Diagnosis (1) Chest pain: Status: Acute Code(s): R07.9 - Chest pain, unspecified Plan: Stress test negative. No additional workup. (2) Paresthesia of left upper and lower extremity: Status: Acute Code(s): R20.2 - Paresthesia of skin Plan: CTA head a neck was unremarkable. Head CT negative. MRI brain negative. MRI cervical spine. Dlmyxwrb-na-xaucbm multilevel degenerative changes of the cervical spine, worst at C5-6 and C6-7 as detailed above. No abnormal cord signal or enhancement within the limitations of motion. Unclear if patient is having some nerve root impingement due to this degenerative changes in her cervical spine. Did recommend that she a follow-up with spine surgery to have them evaluate that to see if there would be anything necessary to do. Plan Pulmonary nodule: Measuring 8 mm. Patient states that she has been told she has had a pulmonary nodule in the past. Outpt CT Thryoid nodule: Reviewed her records through [facility] and I did not see any reports of this in the past. Did discuss this with the patient. It is measuring 1.6 cm. Outpt US. DM2: metformin held given CTA. SSI. a1c 6.2. HTN: lisinopril HCTZ. VTE prophylaxis: LMWH. Medications at Discharge Home Medications lisinopril 20 mg-hydrochlorothiazide 25 mg tablet 1 tab PO DAILY 06/11/14 multivitamin 1 tab PO DAILY 02/06/21 calcium 600 mg (as carbonate)-vitamin D3 10 mcg (400 unit) tablet (Calcium 600 + D(3)) 1 tab PO Q12H 05/01/22 metformin 500 mg tablet 250 mg PO BID 10/28/23 pravastatin 40 mg tablet 40 mg PO QHS 03/21/24 omeprazole 40 mg capsule,delayed release 40 mg PO QDAY #90 caps 04/15/25 sucralfate 1 gram tablet 1 g PO TID ulcers #90 tabs 04/15/25 Hospital Course Operations None Procedures 2-D Echocardiogram Summary of Care Provided Minutes Spent on Discharge: 32 Hospital Course: This is a 60-year-old female presents with chest pain as well as left-sided paresthesias. She underwent a stress test that was negative. And for her left- sided weakness, her workup was unremarkable except for degenerative changes noted through her cervical spine. She had no cord impingement but concerning that given her left-sided symptoms which is down her arm and leg that she could potentially be having intermittent paresthesias present perhaps due to that. Did recommend that she follow-up with spine surgery to see if there is there would be anything necessary to do from a surgical perspective. So with her CAT scans that she had had patient was known to have a pulmonary nodule which patient apparently has been aware of in the past as well as a thyroid nodule which she was not. I recommended those to be followed up as outpatient with CAT scan and ultrasound, respectively. Weight / BMI Weight Weight: 75.1 kg Body Mass Index (BMI) 24.4 ABG / Lab / Microbiology Data 05/17/25 05:45 05/17/25 05:45 Laboratory: Laboratory Results - last 24 hr 05/17/25 16:35: POC Glucose 98 05/17/25 21:03: POC Glucose 85 05/18/25 06:23: POC Glucose 112 H 05/18/25 11:21: POC Glucose 100 Radiography Diagnostic Testing: Radiology Impression Brain MRI 05/17/25 13:06 IMPRESSION: 1. No acute intracranial abnormality, to include no acute ischemia. 2. Minimal microvascular ischemic changes. Reading Location: [facility] Cervical Spine MRI 05/17/25 13:06 IMPRESSION: Nvfhkupv-di-umtlog multilevel degenerative changes of the cervical spine, worst at C5-6 and C6-7 as detailed above. No abnormal cord signal or enhancement within the limitations of motion. Reading Location: [facility] D/C Instructions Discharge Diet: No restrictions DC O2, CPAP, BIPAP Needs Home O2 Discharge instructions: No Meaningful Use Info Meaningful Use Meaningful Use Diagnoses (Choose all that apply): None applicable Ischemic Stroke Statin Dosing Therapy Reference: STATIN DOSE THERAPY REFERENCE: * Patients > 75 years receive moderate or high dose statin therapy. * Patients 75 years or YOUNGER should receive HIGH intensity statin dose unless contraindicated. You will be required to document reason for non-treatment if statin daily dose does not meet guidelines. HIGH DOSE STATIN THERAPY DAILY Atorvastatin > than or = to 40 mg Rosuvastatin > than or = to 20 mg Amlodipine + Atorvastatin > than or = to 2.5/40 mg Ezetimibe + Simvastatin 10/80 mg Simvastatin 80mg Discharge Plan Admission Admit Date/Time: 05/16/25 16:00 Primary Reason for Your Visit: Left-sided numbness Attending Provider: Bret Cisneros Primary Care Provider: Bret Gomez Consulting Providers: Devante James; Dani Mendez; Samantha Joseph; Mariama Flanagan; Debora Mcclendon; Glenn Aguayo; Ondina Peng; Samson Darling; Toby Carney; Vidal Subramanian; Edita Tamayo; Augustus Glaser; Marga Cox; Betina Gore; Jose Alberto John; Zak Chisholm; Ambar Birmingham; Jai Espitia; Tiffanie Nolasco; Dorothy Barcenas; Marilin Yuen Instructions Additional Instructions / Restrictions: You did have chest pain but your workup from a cardiac standpoint was normal. And you had some numbness in your left arm and leg. Your workup was also normal but you did have arthritic did not degenerative changes in your cervical spine that could potentially intermittently cause the symptoms. You may follow-up with a spine surgeon to see if that would need any additional workup at this time. Also with the CAT scans it was noted that you had a thyroid as well as a pulmonary nodule. I recommend following up with Dr. Gomez about having further imaging performed of those for monitoring purposes as outpatient. Discharge Orders/Prescriptions Prescriptions: Continued multivitamin Tablet 1 tab PO DAILY lisinopril-hydrochlorothiazide 1 TABLET tablet 1 tab PO DAILY Patient Comments: heart/ blood pressure calcium carbonate-vitamin D3 [Calcium 600 + D(3)] 600 mg-10 mcg (400 unit) Tablet 1 tab PO Q12H metformin 500 mg tablet 250 mg PO BID pravastatin 40 mg tablet 40 mg PO QHS omeprazole 40 mg capsule,delayed release(DR/EC) 40 mg PO QDAY Qty: 90 0RF sucralfate 1 gram tablet 1 g PO TID Qty: 90 3RF Referrals / Follow Up: Bret Gomez MD [Primary Care Provider] - Within 2 Weeks Disposition Disposition (needs filled in before D/C Order can be placed): Home, Self Care Charges/Coding Visit Charges Inpatient E&M: 50687 Disch Hosp >30min
[2025-05-18 12:51] VITALS: BP 118/82; PULSE 63; RESP 16; TEMP 36.8; O2SAT 99
--- NOTE | 2025-05-18 15:04 | CASEMGMT ---
Patient has order for discharge. RN CM in to discuss needs at discharge. Patient denies needs or help at discharge. Patient had no further questions or concerns.
--- NOTE | 2025-05-18 16:25 | PHA.DC.MR.R ---
[facility] has performed discharge medication reconciliation for this patient. The patient's discharge medication list was reviewed for discrepancies and discrepancies were resolved. Medications at Discharge Home Medications lisinopril 20 mg-hydrochlorothiazide 25 mg tablet 1 tab PO DAILY blood pressure 06/11/14 multivitamin 1 tab PO DAILY vitamin 02/06/21 calcium 600 mg (as carbonate)-vitamin D3 10 mcg (400 unit) tablet (Calcium 600 + D(3)) 1 tab PO Q12H vitamin 05/01/22 metformin 500 mg tablet 250 mg PO BID diabetes 10/28/23 pravastatin 40 mg tablet 40 mg PO QHS cholesterol 03/21/24 omeprazole 40 mg capsule,delayed release 40 mg PO QDAY reflux #90 caps 04/15/25 sucralfate 1 gram tablet 1 g PO TID ulcers #90 tabs 04/15/25
== END 2025-05-18 15:22 | disposition home or self-care (01) ==
LOC: ED 15:03 → PCU 16:49
PROVIDERS: Admitting Provider Internal Medicine; Emergency Provider Emergency Medicine; PCP Family Medicine
DX: R07.89 Other chest pain (principal); E11.9 Type 2 diabetes mellitus without complications; R42 Dizziness and giddiness; R20.0 Anesthesia of skin; K21.9 Gastro-esophageal reflux disease without esophagitis; M47.812 Spondylosis without myelopathy or radiculopathy, cervical region; E04.1 Nontoxic single thyroid nodule; Z87.891 Personal history of nicotine dependence; F41.9 Anxiety disorder, unspecified; K58.9 Irritable bowel syndrome, unspecified; E78.00 Pure hypercholesterolemia, unspecified; Z79.84 Long term (current) use of oral hypoglycemic drugs; I10 Essential (primary) hypertension; R20.2 Paresthesia of skin; F32.A Depression, unspecified; Z79.899 Other long term (current) drug therapy; R91.1 Solitary pulmonary nodule
CPT/HCPCS: 70450; 70496; 70498; 70553; 71045; 72156; 78452; 80048; 80053; 80061; 82962; 83036; 83735; 84443; 84484; 85025; 93005; 93017; 94762; 96372; 97802; 99221; 99285; A9500; A9575; Q9967; A4216; G0378; J2785

== ENCOUNTER → 2025-06-06 | Outpatient (CLI) | payer OTHER, SELFPAY ==
--- NOTE | 2025-06-06 11:42 | US_ITS ---
PROCEDURE: THYROID 06/06/2025 REASON FOR EXAM: PULMONARY NODULE TECHNIQUE: THYROID COMPARISON: None FINDINGS: Right thyroid lobe size: 5.2 cm x 1.7 cm x 1.3 cm Left thyroid lobe size: 5.5 cm 1.6 cm 1.2 cm Isthmus: 0.2 cm Background parenchymal echotexture is homogeneous. Nodules: There is an 8 mm x 6 mm x 4 mm cyst in the upper pole of the right lobe of the thyroid. There is also a 5 mm x 4 mm x 3 mm complex cyst in the lower pole of the right lobe as well as an 8 mm x 7 mm x 4 mm complex cyst in the lower lobe. There is a 1.2 cm x 1 cm x 0.8 cm complex hypoechoic nodule in the upper lobe as well as a 1.6 cm 1.3 cm x 0.9 cm complex hypoechoic solid nodule in the lower pole. Biopsy of this abnormality suggested for further evaluation. US/Thyroid IMPRESSION: Bilateral thyroid nodules as described. Biopsy of a 1.6 cm x 1.3 cm x 0.9 cm c omplex nodule in the lower pole of the left lobe recommended. RECOMMENDATION: Based on most suspicious nodule. Nodule size = largest diameter Only evaluate nodule if =>5 mm. Growth > 20% in 2 dimensions = worsening. Follow up to 4 nodules. Recommend biopsy for no more than 2 nodules. Reading Location: [place] [id number]
== END | disposition home or self-care (01) ==
LOC: US 11:26
PROVIDERS: PCP Family Medicine; Referring Provider Family Medicine; Visit Provider Family Medicine
DX: R91.1 Solitary pulmonary nodule (principal)
CPT/HCPCS: 76536

== ENCOUNTER → 2025-06-10 | Outpatient (CLI) | payer OTHER, SELFPAY ==
--- NOTE | 2025-06-10 13:14 | CT_ITS ---
PROCEDURE: CHEST WITH CONTRAST 06/10/2025 REASON FOR EXAM: NODULE TECHNIQUE: CHEST WITH CONTRAST Coronal and Sagittal reconstruction series were provided. CONTRAST: Isovue 370 VOLUME: 96 mL One or more dose reduction techniques were used (e.g., Automated exposure control, adjustment of the mA and/or kV according to patient size, use of iterative reconstruction technique). RADIATION DOSE SUMMARY: CTDlvol: 29 mGy DLP: 497 mGycm COMPARISON: Chest x-ray study dated 05/16/2025 FINDINGS: Lymph nodes: There is no mediastinal, hilar or axillary adenopathy based upon CT criteria. Heart and Vasculature: Heart size and configuration are within normal limits. Pulmonary vasculature is unremarkable. Aorta is non aneurysmal. Lungs and Airways: There is a 2 mm noncalcified nodule identified in the right lower lobe along the anterior lateral aspect on image number 87. There is a 1 cm nodule identified in the lateral aspect of the left upper lobe on image number 40. This nodule appears dense. Remaining lung jimenez are clear. There is no atelectasis, consolidation, effusion, pneumothorax or pneumonia. Pleura: Unremarkable. Upper Abdomen: The visualized portions of the liver, spleen, pancreas, adrenal glands, and kidneys are unremarkable. Bones: Mild degenerative changes of the thoracic spine are noted. CT/Chest WITH Contrast IMPRESSION: There are 2 lung nodules seen. 1 in the right lung and 1 in the left lung. Fo llow-up study in 3 months is recommended for re-evaluation Reading Location: [id number]
== END | disposition home or self-care (01) ==
LOC: CT 13:12
PROVIDERS: PCP Family Medicine; Referring Provider Family Medicine; Visit Provider Family Medicine
DX: R91.1 Solitary pulmonary nodule (principal)
CPT/HCPCS: 71260; Q9967

== ENCOUNTER → 2025-07-12 | Outpatient (CLI) | payer OTHER, SELFPAY ==
--- NOTE | 2025-07-12 13:00 | FLU_PTH ---
PATIENT: PATRICK PHILIPPE LOC: [facility] U#:[id number] AGE/SX: 60/F ROOM: RE07/12/[address]: Dr. Marquise Zee MD : [id number] BED: DIS: 07/12/2025 SPEC #: [id number] RECD: 07/12/25 15:20 STATUS: LAKISHA YELENA #: [id number] ALEJANDRA: 07/12/25 13:[address]: Marquise Zee DEPT: CYTOLOGY RECD BY: Ori Billy ENTERED: 07/13/25 07:57 SP TYPE: Fluid OTHR DR: Dr. Bret Gomez MD Tissues: A - Thyroid gland, NOS Procedures: Special Stain Group II Cytospin Fluid HEADER OPERATION: Fine needle aspiration of left thyroid nodule PRE-OP DIAGNOSIS: Left thyroid nodule TISSUE SUBMITTED: A- Left inferior thyroid nodule for cytology DIAGNOSIS CYTOLOGY A. Left thyroid nodule, fine needle aspiration: * No malignant cells are identified * Benign (consistent with benign follicular nodule) CYTOLOGY STUDY Slides are reviewed. CYTOLOGY GROSS A. Received is 30 ml of pale-red cytolyt with particles and 5 slides labeled with the patient's name and and designated per the requisition as Left inferior thyroid nodule. Submitted for cytology and cytospin. Mr 07/13/2025 CPT: 98061,13369
--- OUTSIDE RECORDS SUMMARY | 2025-07-13 07:03 | XMS RPT_ITS | CCD ---
Author Organization [facility] CliniSysd Care Team Providers Care Medication Assistant Name Role Phone Dr. Bret Gomez Primary Care Provider Dr. Bret Gomez Referring Provider [phone] Stephanie TAX COLLECTION COORDINATOR, TAX COLLECTION COORDINATOR-C Alessandra Boothe Attending Provider [phone] Dr. Gumaro Sandhu Attending Provider [phone] Dr. Gumaro Sandhu Other Provider [phone] Bret Gomez Primary Care Provider Dr. Bret Gomez Referring Provider [phone] Stephanie TAX COLLECTION COORDINATOR, TAX COLLECTION COORDINATOR-C Alessandra Boothe Attending Provider [phone] Dr. Bret Gomez Primary Care Provider Dr. Bret Gomez Referring Provider Stephanie TAX COLLECTION COORDINATOR, TAX COLLECTION COORDINATOR-C Alessandra Boothe Attending Provider [phone] Dr. Gumaro Sandhu Attending Provider Dr. Gumaro Sandhu Other Provider [phone] Bret Gomez Primary Care Provider [phone] Dr. Bret Gomez Referring Provider [phone] Dr. Gumaro Sandhu Attending Provider [phone] Dr. Gumaro Sandhu Other Provider [phone] Bret Gomez Primary Care Provider Dr. Bret Gomez Referring Provider [phone] Dr. Gumaro Sandhu Attending Provider Dr. Gumaro Sandhu Other Provider [phone] Bret Gomez Primary Care Provider Dr. Bret Gomez Referring Provider [phone] Friend, Dr. Naik Attending Provider Dr. Marie Aiken Attending Provider Dr. Too Bingham Referring Provider Dr. Bret Gomez MD Primary Care Provider Jason WILL, Dr. Queen Referring Provider Sharad TAX COLLECTION COORDINATOR-C, Coty Attending Provider Coleman WILL, Dr. Saab Attending Provider Kael PARR, Dr. Fink Emergency Provider Wilfrid WILL, Dr. Gaston Admit Provider Wilfrid WILL, Dr. Gaston Attending Provider Kael PARR, Dr. Fink Emergency Provider Wilfrid WILL, Dr. Gaston Admit Provider Wilfrid WILL, Dr. Gaston Other Provider Jacob WILL, Devante Other Provider Unavailable Vanessa WILL, Dr. Louise Other Provider [phone] Samantha Joseph MD Other Provider Unavailable Dr. Mariama Flanagan DO Other Provider [phone] Hakan WILL, Dr. Cazares Other Provider [phone] Olivier WILL, Dr. Elizabeth Other Provider [phone] Ondina Peng MD Other Provider Dr. Samson Darling MD Other Provider [phone] Rommel WILL, Dr. Luis Other Provider Moris WILL, Dr. Drake Other Provider [phone] Edita Tamayo MD Other Provider Alfredito WILL, Dr. Coffman Other Provider [phone] Kenny WILL, Dr. Gresham Other Provider Bao WILL, Dr. Moffett Other Provider Alvaro WILL, Dr. Jose Alberto Salas Other Provider Phan WILL, Dr. Crespo Other Provider Valencia WILL, Dr. Villalta Other Provider Nupur WILL, Dr. Vergara Other Provider Gaurav WILL, Dr. Moreno Other Provider Unavailable Swapna WILL, Dorothy Other Provider Unavailable Amelia PARR, Dr. Queen Attending Provider Dr. Bret Cisneros DO Other Provider Jason WILL, Dr. Queen Attending Provider Bret Cisneros Attending Unavailable Devante James Consulting Unavailable Gomez, Bret Primary Care Unavailable Marilin Yuen Admitting Unavailable Adeli, Amir Consulting Unavailable Hinduja, Samantha Consulting Unavailable Panchito, Mariama Consulting Unavailable Zha, Debora Consulting Unavailable Olivier, Glenn Consulting Unavailable Ginette, Ondina Consulting Unavailable Bittar, Samson Consulting Unavailable Toby Carney Consulting Unavailable Vidal Subramanian Consulting Unavailable Edita Tamayo Consulting Unavailable Augustus Glaser Consulting Unavailable Marga Cox Consulting Unavailable Betina Gore Consulting Unavailable Jose Alberto John Consulting UnavailZak Delgado Consulting Unavailable Ambar Birmingham Consulting Unavailable Jai Espitia Consulting Unavailable Tiffanie Nolasco Consulting Unavailable Dorothy Barcenas Consulting Unavailable Marilin Yuen Consulting Unavailable Bret Cisneros Consulting Unavailable Coty Orourke Attending Unavailable Gomez, Bret Primary Care Unavailable Gomez, Bret Referring Unavailable Friend, Gumaro Attending Unavailable Gomez, Bret Primary Care Unavailable Gomez, Bret Referring Unavailable Kaiser Cee Attending Unavailable Coty Orourke Attending Unavailable Gomez, Bret Referring Unavailable Gomez, Bret Primary Care Unavailable Kaiser Cee Attending Unavailable Gomez, Bret Primary Care Unavailable Gomez, Bret Primary Care Unavailable Gomez, Bret Referring Unavailable Marquise Zee Attending Unavailable Friend, Gumaro Attending Unavailable Friend, Gumaro Consulting Unavailable Friend, Gumaro Referring Unavailable Gomez, Bret Primary Care Unavailable Marilin Yuen Attending Unavailable Gomez, Bret Attending Unavailable Gomez, Bret Primary Care Unavailable Friend, Gumaro Attending Unavailable Gomez, Bret Primary Care Unavailable Friend, Gumaro Referring Unavailable Gomez, Bret Attending Unavailable Gomez, Bret Referring Unavailable Gomez, Bret Primary Care Unavailable Gomez, Bret Attending Unavailable Gomez, Bret Primary Care Unavailable Gomez, Bret Referring Unavailable Marilin Yuen Admitting Unavailable Bret Cisneros Attending Unavailable Gomez, Bret Primary Care Unavailable Devante James Consulting Unavailable AdeDani sky Consulting Unavailable Hindudavid Samantha Consulting Unavailable Panchito Mariama Consulting Unavailable Hakan Debora Consulting Unavailable Glenn Aguayo Consulting Unavailable Ondina Peng Consulting Unavailable Samson Darling Consulting Unavailable Toby Carney Consulting Unavailable Vidal Subramanian Consulting Unavailable Edita Tamayo Consulting Unavailable Augustus Glaser Consulting Unavailable Marga Cox Consulting Unavailable Betina Gore Consulting Unavailable Jose Alberto John Consulting UnavailZak Delgado Consulting Unavailable Ambar [place] Consulting Unavailable Jai Espitia Consulting Unavailable Tiffanie Nolasco Consulting Unavailable Dorothy Barcenas Consulting Unavailable Marilin Yuen Consulting Unavailable Friend, Gumaro Attending Unavailable Friend, Gumaro Referring Unavailable Gomez, Bret Primary Care Unavailable Gomez, Bret Referring Unavailable Gomez, Bret Primary Care Unavailable Gomez, Bret Attending Unavailable McMorrow TAX COLLECTION COORDINATOR, Ras Attending Unavailable Gomez, Bret Primary Care Unavailable Saadia WILL, Dr. Camarillo Attending Provider [phone] Allergies Allergy Classification Reported Allergen(s) Allergy Type Date of Onset Reaction(s) Facility (20 sources) metroNIDAZOLE Drug Allergy 05-15-2022 Rash [facility] (1 source) metroNIDAZOLE Drug Allergy 07-04-2025 [facility] Repository Medications Current Medications Medication Drug Class(es) Dates Sig (Normalized) Sig (Original) amoxicillin 875 mg / clavulanate 125 mg oral tablet (2 sources) Penicillin-class Antibacterial Start: 04-09-2023 take 1 tablet by mouth twice daily Amoxicillin-Pot Clavulanate Active 1 TABLET PO TWICE A DAY April 08, 2023 11:00pm calcium carbonate 1500 mg / cholecalciferol 0.01 mg oral tablet (20 sources) Vitamin D Start: 05-01-2022 Calcium Carbonate-Vitami n D3 (Calcium 600 + D(3)) 600 mg-10 mcg (400 unit) Tablet Active 1 {tbl} PO Q12H May 01, 2022 12:00am vitamin Start: 05-01-2022 Calcium Carbon ate-Vitamin D3 (Calcium 600 + D(3)) 600 mg-10 mcg (400 unit) Tablet Active 1 {tbl} PO DAILY May 01, 2022 12:00am hydroCHLOROthiazide 25 mg / lisinopril 20 mg oral tablet (20 sources) Thiazide Diuretic, Angiotensin Converting Enzyme Inhibitor Start: 06-11-2014 Lisinopril-Hydrochlorothiazi de 1 TABLET tablet Active 1 {tbl} PO DAILY June 11, 2014 12:00am blood pressure Start: 06-11-2014 take 1 tablet by robyn th once daily Lisinopril-Hydrochlorothiazide Active 1 TABLET PO DAILY June 11, 2014 12:00am metFORMIN hydrochloride 500 mg oral tablet (20 sources) Biguanide Start: 10-28-2023 Metformin 500 mg tablet Active 250 mg PO TWICE A DAY October 28, 2023 1:00am diabetes Start: 10-28-2023 take 250 mg by mouth [...] DAILY February 06, 2021 12:00am Multivitamin tablet (8 sources) Start: 02-06-2021 Multivitamin t ablet Active 1 {tbl} PO DAILY February 06, 2021 12:00am vitamin Start: 02-06-2021 Multivitamin t ablet Active 1 {tbl} PO DAILY February 06, 2021 12:00am omeprazole 40 mg delayed release oral capsule (20 sources) Proton Pump Inhibitor Start: 04-13-2025 End: 07-11-2025 take 1 capsule by mouth once daily Omeprazole 40 mg capsule,delayed release(DR/EC) Active 40 mg PO daily 90 0 July 11, 2025 6:24pm reflux Start: 06-04-2024 End: 04-13-2025 take 1 capsule by mouth twice daily, then take 1 capsule by mouth once daily Omeprazole 40 mg capsule,delayed release(DR/EC) Discontinued 40 mg PO TWICE A DAY 60 0 December 13, 2024 12:15pm April 13, 2025 10:38am take one capsule by mouth twice a day for two months and then take one capsule once a day Start: 03-25-2024 End: 05-24-2024 take 1 capsule by mouth twice daily Omeprazole 40 mg capsule,delayed release(DR/EC) Discontinued 40 mg PO TWICE A DAY 120 60 0 March 25, 2024 8:47am May 23, 2024 12:00am May 24, 2024 12:04am Heartburn Start: 08-27-2023 End: 03-25-2024 take 1 capsule by mouth once daily Omeprazole 40 mg capsule,delayed release(DR/EC) Discontinued 40 mg PO DAILY 30 30 August 27, 2023 3:39pm March 25, 2024 8:52am Heartburn Start: 05-15-2022 End: 08-27-2023 Omeprazole 40 mg [...] break pravastatin sodium 40 mg oral tablet (9 sources) HMG-CoA Reductase Inhibitor Start: 03-21-2024 take 1 tablet by mouth at bedtime Pravastatin 40 mg tablet Active 40 mg PO AT BEDTIME March 21, 2024 12:00am cholesterol Completed/Discontinued Medications Medication Drug Class(es) Dates Sig (Normalized) Sig (Original) acetaminophen 325 mg / HYDROcodone bitartrate 5 mg oral tablet (20 sources) Opioid Agonist Start: 02-08-2021 End: 02-13-2021 Hydrocodone-Acetamino phen 1 TABLET tablet Discontinued 1 - 2 NMA PO EVERY 6 HOURS NEEDED as needed for Pain 25 5 0 February 08, 2021 February 12, 2021 12:00am February 13, 2021 12:03am Postoperative pain Other acute postprocedural pain Start: 02-08-2021 End: 02-13-2021 take 1 tablet by mouth every six hours as needed Hydrocodone-Acetaminophen Discontinued 1 - 2 TAB PO EVERY 6 HOURS NEEDED 25 5 February 08, 2021 February 13, 2021 12:03am atropine sulfate 0.025 mg / diphenoxylate hydrochloride 2.5 mg oral tablet (20 sources) Anticholinergic, Cholinergic Muscarinic Antagonist, Antidiarrheal Start: 01-25-2022 End: 04-05-2022 Diphenoxylate-Atropine (Lomotil) 2.5-0.025 mg tablet Discontinued 1 {tbl} PO TWICE A DAY as needed for diarrhea 30 0 April 04, 2022 3:24pm April 05, 2022 4:18pm cholestyramine resin 4000 mg powder for oral suspension (20 sources) Bile Acid Sequestrant Start: 10-29-2023 End: 02-13-2024 take 1 g by mouth once daily Cholestyramine (With Sugar) 4 gram powder Discontinued 1 g PO .daily 348.6 1 October 29, 2023 11:04am February 13, 2024 [...] powder Discontinued 1 g PO .daily 348.6 1 October 29, 2023 1:00am October 29, 2023 11:07am Start: 10-29-2023 End: 10-29-2023 Cholestyramine (With Sugar) [...] 10:07am dicyclomine hydrochloride 10 mg oral capsule (20 sources) Anticholinergic Start: 12-16-2019 End: 02-06-2021 take 1 capsule by mouth every eight hours as needed for pain Dicyclomine 10 MG capsule Discontinued 10 mg PO EVERY 8 HOURS NEEDED as needed for ABD PAIN December 16, 2019 1:00am February 06, 2021 12:42pm gabapentin 300 mg oral capsule (9 sources) Anti-epileptic Agent Start: 03-21-2024 End: 07-13-2024 take 1 capsule by mouth three times daily Gabapentin 300 mg capsule Discontinued 300 mg PO THREE TIMES A DAY 42 14 0 March 21, 2024 12:00am July 13, 2024 8:35am Postoperative pain Other acute postprocedural pain 3 ml liraglutide 6 mg/ml pen injector (20 sources) GLP-1 Receptor Agonist Start: 12-16-2019 End: 02-06-2021 inject 1.2 mg by subcutaneous injection once daily Liraglutide 0.6 MG/0.1 ML pen injector Discontinued 1.2 mg SQ DAILY December 16, 2019 1:00am February 06, 2021 12:42pm LORazepam 1 mg oral tablet (9 sources) Benzodiazepine Start: 03-21-2024 End: 07-13-2024 take 1 tablet by mouth three times daily as needed for pain Lorazepam (Ativan) 1 mg tablet Discontinued 1 mg PO THREE TIMES A DAY as needed for Muscle pain/spasm 15 5 0 March 21, 2024 12:00am July 13, 2024 8:36am Postoperative pain Other acute postprocedural pain metoclopramide 5 mg oral tablet (13 sources) Dopamine-2 Receptor Antagonist Start: 10-29-2023 End: 02-13-2024 take 8 tablets by mouth once Metoclopramide Hcl 5 mg tablet Discontinued 10 mg PO .q8 21 7 0 October 29, 2023 1:00am February 13, 2024 10:53am Start: 10-29-2023 End: 02-13-2024 Metoclopramide Hcl Discontin ued 10 MG PO .q8 21 7 October 29, 2023 1:00am February 13, 2024 10:53am oxyCODONE hydrochloride 5 mg oral tablet (9 sources) Opioid Agonist Start: 03-21-2024 End: 07-13-2024 take 5-10 mg by mouth every four hours as needed for pain Oxycodone 5 mg tablet Discontinued 5 - 10 mg PO EVERY 4 HOURS NEEDED as needed for pain March 21, 2024 12:00am July 13, 2024 8:36am raNITIdine 150 mg oral tablet (20 sources) Histamine-2 Receptor Antagonist Start: 06-11-2014 End: [...] 1 g PO THREE TIMES A DAY 90 3 April 04, 2025 7:48am April 15, 2025 1:22pm ulcers Start: 10-28-2023 End: 02-13-2024 take 1 tablet by mouth once daily Sucralfate 1 gram tablet Discontinued 1 g PO DAILY October 28, 2023 1:00am February 13, 2024 10:54am Start: 02-06-2023 End: 08-27-2023 take 1 tablet by mouth at bedtime Sucralfate 1 gram tablet Discontinued 1 g PO before meals and at bedtime 120 2 February 06, 2023 12:00am August 27, 2023 3:40pm Start: 02-06-2023 End: 09-26-2023 take 1 tablet by mouth once Sucralfate 1 gram tablet Discontinued 1 g PO ONCE 30 30 0 August 27, 2023 3:38pm September 25, 2023 12:00am September 26, 2023 12:05am Start: 05-15-2022 End: 08-28-2022 take 1 tablet by mouth at bedtime Sucralfate 1 gram tablet Discontinued 1 g PO before meals and at bedtime 120 0 July 08, 2022 4:16pm August 28, 2022 11:53am stomach ulcer traMADol hydrochloride 50 mg oral tablet (20 sources) Opioid Agonist Start: 12-16-2019 End: 12-19-2019 take 1 tablet by mouth every four hours as needed for pain Tramadol 50 MG tablet Discontinued 50 mg PO EVERY 4 HOURS NEEDED as needed for Pain 12 3 December 16, 2019 1:00am December 18, 2019 1:00am December 19, 2019 1:08am Problems Active Problems Problem Classification Problem Date Documented Da te Episodic/Chronic Abdominal pain (20 sources) Right upper quadrant pain; Translations: [Right upper quadrant pain] Onset: Episodic Diabetes mellitus without complication (20 sources) Diabetes mellitus; Translations: [Type 2 diabetes mellitus without complications] 05-01-2022 Chronic Comment on above: ON MED Diverticulosis and diverticulitis (20 sources) Diverticulosis of colon; Translations: [Diverticulosis of large intestine without perforation or abscess without bleeding] Chronic Esophageal disorders (20 sources) Gastroesophageal reflux disease; Translations: [Gastro-esophageal reflux disease without esophagitis] Chronic Essential hypertension (20 sources) Hypertensive disorder; Translations: [Essential (primary) hypertension] 05-01-2022 Chronic Comment on above: CONTROLLED ON MED Gastroduodenal ulcer (except hemorrhage) (20 sources) Gastric ulcer; Translations: [Gastric ulcer, unspecified as acute or chronic, without hemorrhage or perforation] Chronic Noninfectious gastroenteritis (20 sources) Chronic diarrhea; Translations: [Noninfective gastroenteritis and colitis, unspecified] 12-17-2019 Episodic Nonspecific chest pain (20 sources) Chest wall pain; Translations: [Other chest pain] Onset: 09-20-2019 Episodic Comment on above: NONE RECENTLY Osteoarthritis (20 sources) Arthritis; Translations: [Unspecified osteoarthritis, unspecified site] 02-12-2022 Chronic Other and unspecified benign neoplasm (20 sources) History of polyp of colon; Translations: [Personal history of colonic polyps] 02-12-2022 Episodic Other and unspecified benign neoplasm (2 sources) Personal history of colonic polyps; Translations: [Personal history of colonic polyps] Episodic Other connective tissue disease (13 sources) Iliotibial band friction syndrome of left knee; Translations: [Iliotibial band syndrome, left leg] 05-04-2025 Episodic Other endocrine disorders (19 sources) Increased gastrin secretion; Translations: [Increased secretion of gastrin] 05-21-2022 Chronic Other endocrine disorders (4 sources) Increased secretion of gastrin; Translations: [Abnormality of secretion of gastrin] Chronic Other gastrointestinal disorders (20 sources) Irritable bowel syndrome; Translations: [Irritable bowel syndrome without diarrhea] 02-12-2022 Chronic Other gastrointestinal disorders (20 sources) Diarrhea; Translations: [Diarrhea, unspecified] 02-12-2022 Episodic Other gastrointestinal disorders (2 sources) Diarrhea, unspecified; Translations: [Diarrhea] Episodic Other liver diseases (1 source) Fatty (change of) liver, not elsewhere classified; Translations: [Fatty (change of) liver, not elsewhere classified] Onset: 4 Chronic Other lower respiratory disease (1 source) Solitary pulmonary nodule; Translations: [Solitary pulmonary nodule] Onset: 5 Episodic Other nervous system disorders (9 sources) Postoperative pain ; Translations: [Other acute postprocedural pain] 03-21-2024 Episodic Other nervous system disorders (10 sources) Paresthesia; Translations: [Paresthesia of skin] 05-17-2025 Episodic Other nervous system disorders (1 source) Paresthesia of skin; Translations: [Paresthesia of skin] Onset: 5 Episodic Other non-traumatic joint disorders (9 sources) Pain in left knee; Translations: [Left knee pain] Onset: 5 05-04-2025 Episodic Residual codes; unclassified (20 sources) Family history of cancer of colon; Translations: [Family history of malignant neoplasm of digestive organs] 02-12-2022 Episodic Residual codes; unclassified (2 sources) Family history of malignant neoplasm of digestive organs; Translations: [Family history of malignant neoplasm of gastrointestinal tract] Episodic Sprains and strains (13 sources) Sprain of left knee; Translations: [Sprain of unspecified site of left knee, initial encounter] 05-04-2025 Episodic Thyroid disorders (1 source) Thyroid nodule; Translations: [Nontoxic single thyroid nodule] 07-12-2025 Chronic Past or Other Problems Problem Classification Problem [...] Test Name Value Interpretation Reference Range Facility Orthopedic Visit Reporton Orthopedic Visit Report [facility] [address] [place] [address] OFFICE VISIT Date of Service: 07/04/25 MR#: [id number] Acct: [id number] Name: QI PHILIPPE Rep #: [id number] : 1965 Provider: NICOLE kennedy Age/Sex: 60/F Location: [facility] Status: Signed Intake Vital Signs 05/04/25 12:55 05/17/25 15:27 Height 5 ft 9 in 5 ft 9 in Intake Visit Reasons: LEFT KNEE Chief Complaint: Left knee pain Accompanied by: Self Is patient in pain?: Yes (left knee ) Pain scale (1-10): 5 Allergies metronidazole Allergy (Mild, Verified 07/04/25 10:53) Rash Medications ???Medication ???Instructions ???Recorded ???Confirmed ???Type lisinopril 20 1 tab PO DAILY blood pressure 05/2407/04/25 History mg-hydrochlorothiazide 25 mg tablet multivitamin 1 tab PO DAILY vitamin 02/06/21 History calcium 600 mg (as 1 tab PO Q12H vitamin 05/01/2210/18 History carbonate)-vitamin D3 10 mcg (400 unit) tablet (Calcium 600 + D(3)) metformin 500 mg tablet 250 mg PO BID diabetes 10/28/23 History pravastatin 40 mg tablet 40 mg PO QHS cholesterol 03/21/24 07/04/25 History omeprazole 40 mg capsule,delayed 40 mg PO QDAY reflux #90 caps 03/2507/04/25 Rx release sucralfate 1 gram tablet 1 g PO TID ulcers #90 tabs 5 07/04/25 Rx PFSH Medical History Abdominal pain Fatty liver [...] provided and the decisions made by me, NICOLE Patterson 07/04/25 1051. Part of today???s visit was documented by Jane Escoto RN, acting as scribe. QI PHILIPPE is a 60 year old F here today for 8 week follow up on left knee pain. She reports the steroid injection helped to decrease her pain dramatically. She complains of intermittent left knee pain on the anterior medial knee, she uses Voltaren Gel when this happens which takes the pain away. Agree with above. Qi reports good relief after steroid injection and has been able to resume all activities. She did use a moderate brace for approximately 2 weeks after cortisone shot currently as needed Voltaren gel. Takes Tylenol p.o. additional symptom control on rare occasion. No new injuries. ROS Const All systems reviewed are unremarkable except as noted in H and other (A O x 3, no apparent distress. No recent illness.) ENT Denies dizziness Card Denies chest pain, Denies dyspnea, Denies edema and Reports other (No palpitations) Resp Denies cough, Denies dyspnea and Reports other (No recent URI) GI Reports system reviewed and no additional complaints, except as documented, Denies nausea and Denies vomiting Musc Reports as per HPI Neuro No dizziness Psych Reports system reviewed and no additional complaints, except as documented Neel/Lymph Denies easy bleeding and Denies easy bruising Ortho Exam General General: Yes no acute distress and Yes well groomed Neurologic: Yes alert and Yes oriented x3 Psychologic: Yes reasonable and appropriate Left Knee KNEE: Skin is pink, warm, dry and intact. No swelling, skin discoloration or ecchymosis is present. Range of motion: 0 to 150 degrees Palpation: No tenderness with palpation No instability on exam, negative crepitus Lower leg is soft, nontender, easily compressible, Homans negative Gait: Ambulatory with mild limp to start gait from seated position, eases after several steps Full range of distal joints with no symptom aggravation Distal motor or sensory intact with brisk cap refill at 2 seconds Coding Level of Care Code Off vis,est,level 3 Diagnoses Sprain of left knee, unspecified ligament, initial encounter S83.92XA Encounter type: initial encounter Involved ligament of k (more content not included)... Normal [facility] Chest WITH Contraston 2024 Chest WITH Contrast [facility] [address] [place] [address] Chest WITH Contrast MR#: [id number] Acct: [id number] Name: QI PHILIPPE Rep #: [id number] : 1965 F 60 From: Gloria Mao PCP: Dr. Bret Gomez MD Status: REG CLI Study: Chest WITH Contrast Date of Exam: 06/10/25 Exam# [id number] Ordering Dr: Bret Gomez MD PROCEDURE: CHEST WITH CONTRAST 06/10/2025 REASON FOR EXAM: NODULE TECHNIQUE: CHEST WITH CONTRAST Coronal and Sagittal reconstruction series were provided. CONTRAST: Isovue 370 VOLUME: 96 mL One or more dose reduction techniques were used (e.g., Automated exposure control, adjustment of the mA and/or kV according to patient size, use of iterative reconstruction technique). RADIATION DOSE SUMMARY: CTDlvol: 29 mGy DLP: 497 mGycm COMPARISON: Chest x-ray study dated 05/16/2025 FINDINGS: Lymph nodes: There is no mediastinal, hilar or axillary adenopathy based upon CT criteria. Heart and Vasculature: Heart size and configuration are within normal limits. Pulmonary vasculature is unremarkable. Aorta is non aneurysmal. Lungs and Airways: There is a 2 mm noncalcified nodule identified in the right lower lobe along the anterior lateral aspect on image number 87. There is a 1 cm nodule identified in the lateral aspect of the left upper lobe on image number 40. This nodule appears dense. Remaining lung jimenez are clear. There is no atelectasis, consolidation, effusion, pneumothorax or pneumonia. Pleura: Unremarkable. Upper Abdomen: The visualized portions of the liver, spleen, pancreas, adrenal glands, and kidneys are unremarkable. Bones: Mild degenerative changes of the thoracic spine are noted. CT/Chest WITH Contrast IMPRESSION: There are 2 lung nodules seen. 1 in the right lung and 1 in the left lung. Follow-up study in 3 months is recommended for re-evaluation Reading Location: [facility] CC: Dr. Bret Gomez MD Client Manager Large Law: Signed Normal [facility] Thyroidon 06-06-2025 Thyroid [facility] Imaging Services [address] [place] [id number] Thyroid MR#: [id number] Acct: [id number] Name: QI PHILIPPE Rep #: [id number] : 1965 F 60 From: Russ walker MD PCP: Dr. Bret Gomez MD Status: REG CLI Study: Thyroid Date of Exam: 06/06/25 Exam# [id number] Ordering Dr: Bret Gomez MD PROCEDURE: THYROID 06/06/2025 REASON FOR EXAM: PULMONARY NODULE TECHNIQUE: THYROID COMPARISON: None FINDINGS: Right thyroid lobe size: 5.2 cm x 1.7 cm x 1.3 cm Left thyroid lobe size: 5.5 cm 1.6 cm 1.2 cm Isthmus: 0.2 cm Background parenchymal echotexture is homogeneous. Nodules: There is an 8 mm x 6 mm x 4 mm cyst in the upper pole of the right lobe of the thyroid. There is also a 5 mm x 4 mm x 3 mm complex cyst in the lower pole of the right lobe as well as an 8 mm x 7 mm x 4 mm complex cyst in the lower lobe. There is a 1.2 cm x 1 cm x 0.8 cm complex hypoechoic nodule in the upper lobe as well as a 1.6 cm 1.3 cm x 0.9 cm complex hypoechoic solid nodule in the lower pole. Biopsy of this abnormality suggested for further evaluation. US/Thyroid IMPRESSION: Bilateral thyroid nodules as described. Biopsy of a 1.6 cm x 1.3 cm x 0.9 cm complex nodule in the lower pole of the left lobe recommended. RECOMMENDATION: Based on most suspicious nodule. Nodule size = largest diameter Only evaluate nodule if =>5 mm. Growth > 20% in 2 dimensions = worsening. Follow up to 4 nodules. Recommend biopsy for no more than 2 nodules. Reading Location: [place] [address] CC: Dr. Bret Gomez MD Client Manager Large Law: Signed Normal [facility] Bedside Glucoseon 05-18-2025 FINGERSTICK GLU 100 mg/dL Normal 74-106 [facility] Comment on above: Result Comment: CORIE GEMENT OF PATIENT CARE PER NURSING PROTOCOL Performed By: #### L 501.080 ####[facility] [id number] [place], [place], [id number] FINGERSTICK GLU 112 mg/dL High 74-106 [facility] Comment on above: Result Comment: CORIE GEMENT OF PATIENT CARE PER NURSING PROTOCOL Performed By: #### L 501.080 #### [facility] Laboratory [address] [place], [place], [id number] [facility] deOrdered By: Bret Cisneros on 05-18-2025 Glucose [Mass/Vol] 100 mg/dL 74-106 [facility] Comment on above: MANAGEMENT OF PATIEN T CARE PER NURSING PROTOCOL 12 Lead EKGon 05-17-2025 12 Lead EKG [facility] Cardiovascular Services [address] [place] [address] 12 Lead EKG 05/17/25 0529 MR#: [id number] Acct: [id number] Name: QI PHILIPPE Rep #: [id number] : 1965 60 From: Kaiser Cee MD Attending Dr: Dr. Bret Cisneros, Status: ADM JAZMIN Ordering Dr: Marilin Yuen MD Date: 05/17/25 Location: [facility] Sex: F C Admitted: 05/16/25 Test Reason : stress test Blood Pressure : */* mmHG Vent. Rate : 62 BPM Atrial Rate : 62 BPM P-R Int : 158 ms QRS Dur : 72 ms QT Int : 444 ms P-R-T Axes : 47 34 28 degrees QTcB Int : 450 ms Normal sinus rhythm Normal ECG When compared with ECG of 16-May-2025 17:33, MANUAL COMPARISON REQUIRED DATA IS UNCONFIRMED Confirmed by COLEMAN WILL, KAISER ([id number]), visual effects editor ALETHEA MATSON ([id number]) on 05/17/2025 10:56:20 AM Referred By: Confirmed By: KAISER CEE MD 05/17/25 1056 Date Kaiser Cee MD CC: Dr. Bret Cisneros, ; Dr. Bret Gomez MD; Dr. Marilin Yuen MD Signed Normal [facility] Absolute lymphocyte countOrd ered By: Marilin Yuen on 05-17-2025 Lymphocytes Auto (Unsp spec) [#/Vol] 2.05 10*3/uL 0.83-4.51 [facility] Absolute neutrophil countOrd ered By: Marilin Yuen on 05-17-2025 Neutrophils (Bld) [#/Vol] 3.6 10*3/uL 2.0-7.7 [facility] Anion gap in Serum or Plasma Ordered By: Marilin Yuen on 05-17-2025 Anion gap [Moles/Vol] 13 mmol/L 5-15 [facility] Automated lymphocyte count a s percentage of total leukocytesOrdered By: Marilin Yuen on 05-17-2025 Lymphocytes/100 WBC Auto (Unsp spec) 32.5 % 19-41 [facility] BUN/creatinine ratioOrdered By: Marilin Yuen on 05-17-2025 Urea nitrogen/Creatinine [Mass ratio] 15.3 mg/mg 10-20 [facility] Basophil percentageOrdered B y: Marilin Yuen on 05-17-2025 Basophils/100 WBC (Bld) 0.3 % 0-1 [facility] Bedside Glucoseon 05-17-2025 FINGERSTICK GLU 85 mg/dL Normal 74-106 [facility] Comment on above: Result Comment: CORIE GEMENT OF PATIENT CARE PER NURSING PROTOCOL Performed By: #### L 501.080 ####[facility] [id number] [facility] [address] FINGERSTICK GLU 98 mg/dL Normal 74-[address] [place] [address] Comment on above: Result Comment: CORIE GEMENT OF PATIENT CARE PER NURSING PROTOCOL Performed By: #### L 501.080 #### [facility] Laboratory [address] [place], [address] FINGERSTICK GLU 163 mg/dL High 74-106 [facility] Comment on above: Result Comment: CORIE GEMENT OF PATIENT CARE PER NURSING PROTOCOL Performed By: #### L 501.080 ####[facility] [address] [place], [address] FINGERSTICK GLU 117 mg/dL High [facility]106 [facility] Comment on above: Result Comment: CORIE GEMENT OF PATIENT CARE PER NURSING PROTOCOL Performed By: #### L 499.0043 #### [facility] Laboratory [address] [place], [address] Bilirubin, totalOrdered By: Marilin Yuen on 05-17-2025 Bilirubin [Mass/Vol] 0.55 mg/dL 0.00-1.30 [facility] Brain W/WO Contraston 2024 Brain W/WO Contrast [facility] Imaging Services [address] [place] [address] Brain W/WO Contrast MR#: [id number] Acct: [id number] Name: QI PHILIPPE Rep #: [id number] : 1965 F 60 From: Young Jiménez MD PCP: Dr. Bret Gomez MD Status: ADM JAZMIN Study: Brain W/WO Contrast Date of Exam: 05/17/25 Exam# [id number] Ordering Dr: Bret Cisneros DO PROCEDURE: BRAIN W/WO CONTRAST 05/17/2025 REASON FOR EXAM: LEFT SIDED PARESTHESIA TECHNIQUE: BRAIN W/WO CONTRAST Multiplanar and multisequence images were obtained. CONTRAST: Clariscan VOLUME: 15 mL COMPARISON: CT and CTA of the head on 05/16/2025 FINDINGS: Brain: There are a few scattered foci of nonspecific increased T2/FLAIR signal in the deep and subcortical white matter. No restricted diffusion or abnormal enhancement. Ventricles: Unremarkable for age Major Intracranial Vessels: Flow voids are preserved. Sinuses: Mucous retention cysts or polyps in the right maxillary sinus and near the frontoethmoidal recess. Mastoids: Clear. MRI/Brain W/WO Contrast IMPRESSION: 1. No acute intracranial abnormality, to include no acute ischemia. 2. Minimal microvascular ischemic changes. Reading Location: [facility] CC: Dr. Bret Cisneros DO; Dr. Bret Gomez MD Client Manager Large Law: Signed Normal [facility] CBC W/Diff, Automatedon - Absolute Lymph 2.05 X10 3/uL Normal 0.83-4.51 [facility] Comment on above: Performed By: #### L 499.0043 #### [facility] Laboratory [address] [place], [address] Absolute Neut 3.6 X10 3/uL Normal 2.0-7.7 [facility] Comment on above: Performed By: #### L 499.0043 #### [facility] Laboratory [address] [place], [address] Basophils/100 WBC (Bld) 0.3 % Normal 0-1 [facility] Comment on above: Performed By: #### L 499.0043 #### [facility] Laboratory [address] [place], [address] Eosinophils/100 WBC (Bld) 2.1 % Normal 0-5 [facility] Comment on above: Performed By: #### L 499.0043 #### [facility] [address] [place], [address] Erythrocyte distribution width (RBC) [Ratio] 12.0 % Normal 11.6-14.6 [facility] Comment on above: Performed By: #### L 499.0043 #### [facility] Laboratory [address] [place], [address] Hematocrit (Bld) [Volume fraction] 41.6 % Normal 37-47 [facility] Comment on above: Performed By: #### L 499.0043 #### [facility] Laboratory [address] [place], [address] Hemoglobin (Bld) [Mass/Vol] 13.8 g/dL Normal 12.0-15.0 [facility] Comment on above: Performed By: #### L 499.0043 #### [facility] [address] [place], [address] IG% 0.300 Normal 0.0-0.9 [facility] Comment on above: Result Comment: IG% - Immature Granulocytes (promyelocytes, myelocytes and metamyelocytes) > 1% indicates that a LEFT SHIFT is Present. Performed By: #### L 499.0043 #### [facility] [address] [place], [address] Lymphocytes/100 WBC (Bld) 32.5 % Normal 19-41 [facility] Comment on above: Performed By: #### L 499.0043 #### [facility] [address] [place], [address] MCH (RBC) [Entitic mass] 29.0 pg Normal 27.0-32.0 [facility] Comment on above: Performed By: #### L 499.0043 #### [facility] [address] [place], [address] MCHC (RBC) [Mass/Vol] 33.2 g/dL Normal 32-36 [facility] Comment on above: Performed By: #### L 499.0043 #### [facility] [address] [place], [address] MCV (RBC) [Entitic vol] 87.4 fL Normal 81-99 [facility] Comment on above: Performed By: #### L 499.0043 #### [facility] [address] [place], [address] Monocytes/100 WBC (Bld) 8.3 % Normal 0-10 [facility] Comment on above: Performed By: #### L 499.0043 #### [facility] [address] [place], [address] Neutrophils/100 WBC (Bld) 56.5 % Normal 47-70 [facility] Comment on above: Performed By: #### L 499.0043 #### [facility] [address] [place], [address] Nucleated RBC (Bld) [#/Vol] 0 10*3/uL Normal 0-5 [facility] Comment on above: Performed By: #### L 499.0043 #### [facility] [address] [place], [address] Platelet mean volume (Bld) [Entitic vol] 9.9 fL Normal 6.2-12.0 [facility] Comment on above: Performed By: #### L 499.0043 #### [facility] Laboratory [address] [place], [address] Platelets (Bld) [#/Vol] 341 10*3/uL Normal 150-450 [facility] Comment on above: Performed By: #### L 499.0043 #### [facility] [address] [place], [address] RBC (Bld) [#/Vol] 4.76 10*6/uL Normal 4.2-5.[address] [facility] Comment on above: Performed By: #### L 499.0043 #### [facility] Laboratory [address] [place], [address] RDW SD 38.6 fl Normal 35.1-43.9 [facility] Comment on above: Performed By: #### L 499.0043 #### [facility] [address] [place], [address] WBC (Bld) [#/Vol] 6.3 10*3/uL Normal 4.4-11.0 [facility] Comment on above: Performed By: #### L 499.0043 #### [facility] [address] [place], [address] Calculated very low density lipoprotein (VLDL) cholesterol measurementOrdered By: Marilin Yuen on 05-17-2025 Calculated very low density lipoprotein (VLDL) cholesterol measurement 23 mg/dL 5-40 [facility] Carbon dioxide, total [Moles /volume] in Central venous bloodOrdered By: Marilin Yuen on 05-17-2025 CO2 [Moles/Vol] 23.3 mmol/L 21.0-32.0 [facility] Cardiovascular stress test r eportOrdered By: Kaiser Cee on 05-17-2025 Study report [facility] Cardiovascular Services [address] [place] [address] MR#: [id number] Acct: [id number] Name: QI PHILIPPE Rep #: [id number] : 1965 60 From: Kaiser Cee MD Primary Care: Dr. Bret Gomez MD Status: ADM JAZMIN Referring Dr: Sex: F C Stress Test Report Pharmacologic myocardial perfusion stress test. 60-year-old lady with a history of chest pain Resting EKG demonstrates sinus rhythm with a rate of 68 bpm. Resting blood pressure is 116/70 mmHg. 0.4 mg of regadenoson was infused per usual protocol followed by rapid intravenous saline flush injection. Continuous EKG monitoringwas performed. The maximum heart rate was 90 bpm which was 56% of max impacted heart rate the maximum workload was 1 metabolic equivalent. At rest there were no ST or T wave changes noted to suggest ischemia and at peak infusion nonspecific ST changes were noted which did not meet the criteria for ischemia. No clinical angina is noted. The final blood pressure was 110/60 mmHg. Myocardial perfusion protocol. 11.8 mCi of technetium 99m sestamibi was injected at rest. 0.4 mg of regadenoson was infused per usual protocol. At peak infusion 33.1 mCi of technetium 99m sestamibi was injected stress images were obtained stress and rest images were reconstructed and compared in the short axis vertical long and horizontal long axis. Gated images were also obtained. Perfusion SPECT analysis: Review of the stress images demonstrate normal uptake of tracer noted in all areas of the myocardium. The resting images similar demonstrated normal uptake of tracer noted in all areas of the myocardium. No areas of reversibility are noted to suggest ischemia and no previous infarct is noted. Gated SPECT analysis: The gated ejection fraction is 88%. Conclusion: Normal pharmacologic myocardial perfusion stress test. Preserved ejection fraction. 05/17/25 1409 Date _ Kaiser Cee MD CC: Mariama Flanagan; Marga Cox; Zak Chisholm; Debora Mcclendon MD; Samantha Joseph MD; Devante James MD; Dr. Dani Mendez MD; Dr. Glenn Aguayo MD; Dr. Arnaldo DO; Dr. Bret Gomez MD; Dr. Ondina Peng MD; Dr. Toby Carney MD; Dr. Samson Darling MD; Dr. Vidal Subramanian MD; Dr. Augustus Glaser DO; Dr. Jose Alberto John MD; Dr. Betina Gore MD; Dr. Marilin Yuen MD; Dr. Ambar Birmingham MD; Dr. Jai Espitia MD; Dr. Aleks Scruggs DO; Dr. Tiffanie Nolasco MD; Edita Tamayo DO; Dorothy Barcenas MD ~ Date Dictated: 05/17/251407 Date Transcribed: 05/17/251407 Client Manager Large Law: [place] Signed [facility] Work Phone: Chloride assayOrdered By: Miguel Ángel Yuen on 05-17-2025 Chloride [Moles/Vol] 101 mmol/L 98-108 [facility] Comprehensive Metabolic Prof ilon 05-17-2025 Albumin [Mass/Vol] 4.6 g/dL Normal 3.4-4.8 [facility] Comment on above: Performed By: #### L 499.0043 #### [facility] [address] [place], [address] Albumin/Globulin [Mass ratio] 1.7 {ratio} Normal 0.9-2.4 [facility] Comment on above: Performed By: #### L 499.0043 #### [facility] [address] [place], [address] ALK PHOS 70 U/L Normal 35-104 [facility] Comment on above: Performed By: #### L 499.0043 #### [facility] [address] [place], [address] ALT [Catalytic activity/Vol] 21 U/L Normal <=34 [facility] Comment on above: Performed By: #### L 499.0043 #### [facility] [address] [place], [address] AST [Catalytic activity/Vol] 24 U/L Normal <=31 [facility] Comment on above: Performed By: #### L 499.0043 #### [facility] [address] [place], [address] Bilirubin [Mass/Vol] 0.55 mg/dL Normal 0.00-1.30 [facility] Comment on above: Performed By: #### L 499.0043 #### [facility] [address] [place], [address] BUN/CRE 15.3 RATIO Normal 10-20 [facility] Comment on above: Performed By: #### L 499.0043 #### [facility] [address] [place], [address] Calcium [Mass/Vol] 9.2 mg/dL Normal 7.6-11.0 [facility] Comment on above: Performed By: #### L 499.0043 #### [facility] [address] [place], [address] Chloride [Moles/Vol] 101 mmol/L Normal 98-108 [facility] Comment on above: Performed By: #### L 499.0043 #### [facility] [address] [place], [address] CO2 [Moles/Vol] 23.3 mmol/L Normal 21.0-32.0 [facility] Comment on above: Performed By: #### L 499.0043 #### [facility] [address] [place], [address] Creatinine [Mass/Vol] 0.80 mg/dL Normal 0.70-1.20 [facility] Comment on above: Performed By: #### L 499.0043 #### [facility] [address] [place], [address] ECRCL 76.20 ml/min Normal 50-250 [facility] Comment on above: Performed By: #### L 499.0043 #### [facility] [address] [place], [address] GAP 13 Normal 5-15 [facility] Comment on above: Performed By: #### L 499.0043 #### [facility] [address] [place], [address] GFR/1.73 sq M.predicted among non-blacks MDRD (S/P/Bld) [Vol rate/Area] 83 mL/min/{1.73_m2} Normal >60 [facility] Comment on above: Result Comment: mL/m in/1.73m2 CKD-EPI Creatinine Equation (2020) Performed By: #### L 499.0043 #### [facility] [address] [place], [address] Globulin (S) [Mass/Vol] 2.7 g/dL Normal 2.2-4.2 [facility] Comment on above: Performed By: #### L 499.0043 #### [facility] [address] [place], [address] Glucose [Mass/Vol] 117 mg/dL High 70-99 [facility] Comment on above: Performed By: #### L 499.0043 #### [facility] [address] [place], [address] Potassium [Moles/Vol] 3.6 mmol/L Normal 3.3-5.1 [facility] Comment on above: Performed By: #### L 499.0043 #### [facility] [address] [place], [address] Sodium [Moles/Vol] 137 mmol/L Normal 133-145 [facility] Comment on above: Performed By: #### L 499.0043 #### [facility] [address] [place], [address] T PROT 7.2 g/dL Normal 5.9-8.4 [facility] Comment on above: Performed By: #### L 499.0043 #### [facility] [address] [place], [address] Urea nitrogen [Mass/Vol] 12 mg/dL Normal 4-19 [facility] Comment on above: Performed By: #### L 499.0043 #### [facility] [address] [place], [address] Electrocardiogram reportOrde red By: Kaiser Cee on 05-17-2025 EKG study [facility] Cardiovascular Services [address] [place] [address] 12 Lead EKG 05/16/25 1154 MR#: [id number] Acct: [id number] Name: QI PHILIPPE Rep #:[id number] : 1965 60 From: Kaiser Cee MD Attending Dr: Dr. Bret Cisneros DO Status: ADM JAZMIN Ordering Dr: Aleks Scruggs DO Date: Location: [facility] Sex: F C Admitted: 05/16/25 Test Reason : chest pain Blood Pressure : */* mmHG Vent. Rate : 72 BPM Atrial Rate : 72 BPM P-R Int : 144 ms QRS Dur : 72 ms QT Int : 418 ms P-R-T Axes : 54 48 18 degrees QTcB Int : 457 ms Normal sinus rhythm Nonspecific ST abnormality Abnormal ECG Confirmed by KAISER CEE MD ([id number]), visual effects editor ALETHEA MATSON ([id number]) on 05/17/2025 11:12:43 AM Referred By: Confirmed By: KAISER CEE MD 05/17/25 1112 Date _ Kaiser Cee MD CC: Dr. Bret Cisneros DO; Dr. Bret Gomez MD; Dr. Aleks Scruggs DO ~ Signed [facility] Work Phone: EKG study [facility] Cardiovascular Services [address] [place] [address] 12 Lead EKG 05/16/25 1733 MR#: [id number] Acct: [id number] Name: QI PHILIPPE Rep #:[id number] : 1965 60 From: Kaiser Cee MD Attending Dr: Dr. Bret Cisneros DO Status: ADM JAZMIN Ordering Dr: Marilin Yuen MD Date: Location: U Sex: F C Admitted: 05/16/25 Test Reason : admit Blood Pressure : */* mmHG Vent. Rate : 61 BPM Atrial Rate : 61 BPM P-R Int : 164 ms QRS Dur : 72 ms QT Int : 440 ms P-R-T Axes : 49 28 23 degrees QTcB Int : 442 ms Normal sinus rhythm Normal ECG When compared with ECG of 16-May-2025 11:54, MANUAL COMPARISON REQUIRED DATA IS UNCONFIRMED Confirmed by COLEMAN WILL, KAISER ([id number]), visual effects editor ALETHEA MATSON ([id number]) on 05/17/2025 11:00:52 AM Referred By: Wilfrid Confirmed By: KAISER CEE MD 05/17/25 1100 Date _ Kaiser Cee MD CC: Dr. Bret Cisneros DO; Dr. Bret Gomez MD; Dr. Marilin Yuen MD ~ Signed [facility] Work Phone: EKG study [facility] Cardiovascular Services [address] [place] [address] 12 Lead EKG 05/17/25 0529 MR#: [id number] Acct: [id number] Name: QI PHILIPPE Rep #:[id number] : 1965 60 From: Kaiser Cee MD Attending Dr: Dr. Bret Cisneros, DO Status: ADM JAZMIN Ordering Dr: Marilin Yuen MD Date: Location: [facility] Sex: F C Admitted: 05/16/25 Test Reason : stress test Blood Pressure : */* mmHG Vent. Rate : 62 BPM Atrial Rate : 62 BPM P-R Int : 158 ms QRS Dur : 72 ms QT Int : 444 ms P-R-T Axes : 47 34 28 degrees QTcB Int : 450 ms Normal sinus rhythm Normal ECG When compared with ECG of 16-May-2025 17:33, MANUAL COMPARISON REQUIRED DATA IS UNCONFIRMED Confirmed by COLEMAN WILL, KAISER ([id number]), visual effects editor ALETHEA MATSON ([id number]) on 05/17/2025 10:56:20 AM Referred By: Confirmed By: KAISER CEE MD 05/17/25 1056 Date _ Kaiser Cee MD CC: Dr. Bret Cisneros DO; Dr. Bret Gomez MD; Dr. Marilin Yuen MD ~ Signed [facility] Work Phone: [phone] Eosinophil percentageOrdered By: Marilin Yuen on 05-17-2025 Eosinophils/100 WBC (Bld) 2.1 % 0-5 [facility] Erythrocyte distribution wid th ratioOrdered By: Marilin Yuen on 05-17-2025 Erythrocyte distribution width (RBC) [Ratio] 12.0 % 11.6-14.6 [facility] Erythrocyte distribution wid th standard deviationOrdered By: Marilin Yuen on 05-17-2025 Erythrocyte distribution width (RBC) [Ratio] 38.6 fl 35.1-43.9 [facility] Glomerular filtration rate ( GFR) estimation/1.73 sq m using serum, plasma, or whole bOrdered By: Marilin Yuen on 05-17-2025 GFR/1.73 sq M.predicted among non-blacks MDRD (S/P/Bld) [Vol rate/Area] 83 mL/min/{1.73_m2} >60 [facility] Comment on above: mL/min/1.73m2 CKD-EP I Creatinine Equation (2020) Hematocrit Auto (Bld) [Volum e fraction]Ordered By: Marilin Yuen on 05-17-2025 Hematocrit (Bld) [Volume fraction] 41.6 % 37-47 [facility] Hemoglobin A1con 05-17-2025 HbA1c (Bld) [Mass fraction] 6.2 % High <=5.6 [facility] Comment on above: Result Comment: Norm al < 5.7 % Prediabetic 5.7 - 6.4 % Diabetic >or= 6.5 % Please note range changes. Performed By: #### L 501.080 #### [facility] [address] [place], [address] Hemoglobin A1c percentageOrd ered By: Marilin Yuen on 05-17-2025 HbA1c (Bld) [Mass fraction] 6.2 % High <5.7 [facility] Comment on above: Normal < 5.7 % Predi abetic 5.7 - 6.4 % Diabetic >or= 6.5 % Please note range changes. Hemoglobin measurementOrdere d By: Marilin Yuen on 05-17-2025 Hemoglobin (Bld) [Mass/Vol] 13.8 g/dL 12.0-15.0 [facility] Immature granulocytes/100 WB C Auto (Bld)Ordered By: Marilin Yuen on 05-17-2025 Immature granulocytes/100 WBC (Bld) 0.300 % 0.0-0.9 [facility] Comment on above: IG% - Immature Granu locytes (promyelocytes, myelocytes and metamyelocytes) > 1% indicates that a LEFT SHIFT is Present. LDL calc ser/plasOrdered By: Marilin Yuen on 05-17-2025 Cholesterol in LDL [Mass/Vol] 69 mg/dL [facility] Comment on above: Nrjmzboccd=260-381 m g/dL & Higher Uxfh=073 mg/dL or greater Laboratory - Chemistry and C hemistry - challengeOrdered By: Marilin Yuen on 05-17-2025 AST [Catalytic activity/Vol] 24 U/L <32 [facility] Lipid Profileon 05-17-2025 CHOL:HDL 2.58 Normal [facility] Comment on above: Performed By: #### L 499.0043 #### [facility] [address] [place], [place], [id number] Cholesterol [Mass/Vol] 150 mg/dL Normal <=200 [facility] Comment on above: Result Comment: Chol esterol level, Desirable <200 mg/dL Borderline high cholesterol 200-239 mg/dL High cholesterol >=240 mg/dL Recommendations of the NCEP Adult Treatment Panel for the following risk-cutoff thresholds for the [place] population. Performed By: #### L 499.0043 #### [facility] [address] [place], [address] Cholesterol in HDL [Mass/Vol] 58 mg/dL Normal [facility] Comment on above: Result Comment: Laura onal Cholesterol Education Program (NCEP) guidelines: <40 mg/dL: Low HDL-cholesterol (major risk factor for CHD) >= 60 mg/dL: High HDL-cholesterol (negative risk factor for CHD) HDL-cholesterol is affected by a number of factors, e.g. smoking, exercise, hormones, sex and age. Performed By: #### L 499.0043 #### [facility] [address] [place], [address] Cholesterol in LDL [Mass/Vol] 69 mg/dL Normal [facility] Comment on above: Result Comment: Bord jjwjih=852-652 mg/dL Higher Yabj=223 mg/dL or greater Performed By: #### L 499.0043 #### [facility] [address] [place], [address] Cholesterol in VLDL [Mass/Vol] 23 mg/dL Normal 5-40 [facility] Comment on above: Performed By: #### L 499.0043 #### [facility] [address] [place], [address] Triglyceride [Mass/Vol] 114 mg/dL Normal [facility] Comment on above: Result Comment: The drugs N-Acetylcysteine and Metamizole may falsely depress this assay. Normal range: <150 mg/dL Borderline High: 150-199 mg/dL High: 200-499 mg/dL Very High: >500 mg/dL Performed By: #### L 499.0043 #### [facility] [address] [place], [address] MCV (mean corpuscular volume ) determinationOrdered By: Marilin Yuen on 05-17-2025 MCV (RBC) [Entitic vol] 87.4 fL 81-99 [facility] MR/CON.PCM.NEon 05-17-2025 MR/CON.PCM.NE [facility] Medical Records Department [address] [place] [address] Consultation - Neurology 05/17/25 1126 MR#: [id number] Acct: [id number] Name: QI PHILIPPE Rep #: [id number] : 1965 60 From: Debora Mcclendon MD PCP: Dr. Bret Gomez MD Status:ADM JAZMIN Location: [place] [address] Assessment and Plan: Neuro Assessment/Plan QI PHILIPPE is a 60 F with a past medical history of depression, anxiety, GERD, hypertension, diabetes, being evaluated by Teleneurology for L sided intermittent numbness and tingling in setting of chest and shoulder pain. At this time, symptoms of intermittent numbness not clearly consistent with neurovascular etiology. Appear to be related always to chest discomfort and possible represents referred pain. Exam is benign and no clear focal deficits event on peripheral testing. Will evaluate for possible MEDICAL SOCIOLOGIST etiology but this is unlikely. Plan: - MRI Brain w/wo con and MRI Cervical spine w/o con If above is normal, likely the L sided numbness and tingling are the result of referred pain from the chest discomfort she has. I personally attended this patient and spent a total time of 45 minutes evaluating this patient including clinical assessment, review of chart, medical history imaging, and determining appropriate treatment and workup. HPI Consult Data Date of Consult: 05/17/25 HPI Narrative HPI Narrative: QI PHILIPPE, is a 60-year-old female history of depression, anxiety, GERD, hypertension, diabetes who presented [facility] ED 05/16/2025 for chest pain, nausea, numbness and tingling in the left arm and lower extremity. Reportedly her chest pain and numbness and tingling have been going on for several days, the chest pain has been on the left side of her chest towards her left shoulder that is progressively worsened, worse when she gets up and moves around and does get better with rest. No recent stress test. Does have family history of heart disease. CT head negative, troponins negative and workup otherwise unremarkable. Hospitalist contacted for admission for chest pain rule out. Patient evaluated at bedside and reports she is coming in for 2 reasons, the intermittent left arm and leg numbness and tingling and some left shoulder pain with some possible reflux-like symptoms. Patient reports that for several days she will get some numb and tingling feeling in her hand and below the knee on the left side that comes and goes does not seem to have any other associations, denies any recent falls or neck pain, did have a flareup of pain in her left knee for which she got a cortisone injection a week ago and that has improved. In regards to the concern for chest pain she reports she had some possible pressure-like sensation versus heartburn that has happened intermittently as well as some left shoulder pain however even when she does not have the heartburn the shoulder pain persists. Occasionally will feel lightheaded and dizzy with some nausea. Does report she has a history of ulcers and has been on sucralfate for the past 1 year, denies any abdominal pain, not taking any ibuprofen. Does have a slight headache but reports she gets them when she has allergies and sinus problems which she reports has been present over the past week Neurologic History Started with L shoulder pain and pain in the chest. Then started having numbness and tingling in the L arm and leg. Initially had some L pain in the jaw but not since. Nothing like this has happened before. No change in vision, did have nausea. No clumsiness, no difficulty walking. No headache with all this. Never had stroke, no hear conditions at baseline. On no blood thinners at home. No changes in sound of voice, difficulty getting words out etc. Patient is RH, no difficulty with maneuvering the L hand Chest pain was 4-5/10 and happened a couple times but not constant. Numbness and tingling in the arm and legs ar intermittent but no patterns to the numbness but coincide with pain in shoulder, numbness in the arms and legs, and chest pain coincide. No recent viral illness Neurologic Exam -? General: Laying comfortably in bed; in no acute distress. -? HENT: Normal oropharynx and mucosa. Normal external appearance of ears and nose. Exophthalmos. -? Neck: Supple, no pain or tenderness -? CV:??? No peripheral edema. -? Pulmonary:??? Normal respiratory effort. -? Ext: No cyanosis, edema, or deformity -? Skin: No rash. Normal palpation of skin.??? -? Musculoskeletal: full range of motion; no joint tenderness. Normal digits and nails by inspection. No clubbing. -? NEURO: -? (more content not included)... Normal [facility] Magnesiumon 05-17-2025 Magnesium [Mass/Vol] 2.1 mg/dL Normal 1.5-2.2 [facility] Comment on above: Performed By: #### L 499.0043 #### [facility] [address] [place], [address] Magnesium measurement (mass/ volume)Ordered By: Marilin Yuen on 05-17-2025 Magnesium (Unsp spec) [Mass/Vol] 2.1 mg/dL 1.5-2.2 [facility] Magnetic resonance imaging r eportOrdered By: Young Jiménez on 05-17-2025 Study report [facility] Imaging Services [address] [place] [address] Spine Cervical W/WO Contrast MR#: [id number] Acct: [id number] Name: QI PHILIPPE Rep #: [id number] : 1965 F 60 From: Danette Jiménez MD PCP: Dr. Bret Gomez MD Status: ADM JAZMIN Study:Spine Cervical W/WO Contrast Date of E xam: 05/17/25 Exam# [id number] Ordering Dr: Bret Cisneros DO PROCEDURE: SPINE CERVICAL W/WO CONTRAST 05/17/2025 REASON FOR EXAM: LEFT SIDED PARESTHESIA TECHNIQUE: SPINE CERVICAL W/WO CONTRAST Multiplanar and multisequence images were obtainedwith intravenous gadolinium-based contrast administration. CONTRAST: Clariscan VOLUME: 15 mL COMPARISON: CTA head and neck 05/16/2025 FINDINGS: Vertebrae: Cervical vertebral body heights are preserved. There is a subcentimeter ovoid T1 and T2 hyperintense lesion within the T2 spinous process which demonstrates fat suppression and is without enhancement, likely a hemangioma. Bone marrow signal is otherwise unremarkable. Alignment: Straightening of the normal cervical lordosis. There is 2 mm of retrolisthesis of C5 on C6. Spinal Cord: Cervical spinal cord is grossly unremarkable allowing for motion artifact, without identifiable enhancement. C2-3: No significant disc bulge. Mild facet arthropathy. No neural foraminal or spinal canal narrowing. C3-4: Mild disc bulge and facet arthrosis. Moderate left and mild right neural foraminal narrowing. No significant spinal canal narrowing. C4-5: Mild disc bulge and facet arthropathy. Mild bilateral neural foraminal narrowing and mild spinal canal narrowing. C5-6: Near-complete disc height loss with moderate disc bulge. Mild facet arthrosis. There is severe left and ppbicvrz-lu-wmuecq right neural foraminal narrowing, with moderate to severe spinal canal narrowing C6-7: Near-complete disc height loss with moderate disc bulge. Mild facet arthrosis. There is rvgsutxh-ho-ttgysp right and moderate left neural foraminal narrowing, with moderate spinal canal narrowing C7-T1: Mild disc bulge with nxeq-sy-aeujypkw facet arthrosis, resulting in moderate right neural foraminal narrowing. No significant left neural foraminal or spinal canal narrowing. Postcontrast images: No suspicious contrast enhancement. There is a subcentimeter left thyroid lobe nodule. MRI/Spine Cervical W/WO Contrast IMPRESSION: Fcqsafki-ls-qzylnm multilevel degenerative changes of the cervical spine, worst at C5-6 and C6-7 as detailed above. No abnormal cord signal or enhancement within the limitations of motion. Reading Location: [facility] CC: Dr. Bret Cisneros DO; Dr. Bret Gomez MD ~ Client Manager Large Law: Signed [facility] Study report [facility] Imaging Services [address] [place] [address] Brain W/WO Contrast MR#: [id number] Acct: [id number] Name: QI PHILIPPE Rep #: [id number] : 1965 F 60 From: Danette Jiménez MD PCP: Dr. Bret Gomez MD Status: ADM JAZMIN Study:Brain W/WO Contrast Date of Exam: 05/17/25 Exam# [id number] Ordering Dr: Bret Cisneros DO PROCEDURE: BRAIN W/WO CONTRAST 05/17/2025 REASON FOR EXAM: LEFT SIDED PARESTHESIA TECHNIQUE: BRAIN W/WO CONTRAST Multiplanar and multisequence images were obtained. CONTRAST: Clariscan VOLUME: 15 mL COMPARISON: CT and CTA of the head on 05/16/2025 FINDINGS: Brain: There are a few scattered foci of nonspecific increased T2/FLAIR signal in the deep and subcortical white matter. No restricted diffusion or abnormal enhancement. Ventricles: Unremarkable for age Major Intracranial Vessels: Flow voids are preserved. Sinuses: Mucous retention cysts or polyps in the right maxillary sinus and near the frontoethmoidal recess. Mastoids: Clear. MRI/Brain W/WO Contrast IMPRESSION: 1. No acute intracranial abnormality, to include no acute ischemia. 2. Minimal microvascular ischemic changes. Reading Location: [facility] CC: Dr. Bret Cisneros DO; Dr. Bret Gomez MD ~ Client Manager Large Law: Signed [facility] Mean corpuscular hemoglobin (MCH) determinationOrdered By: Marilin Yuen on 05-17-2025 MCH (RBC) [Entitic mass] 29.0 pg 27.0-32.0 [facility] Mean corpuscular hemoglobin concentration (MCHC) determinationOrdered By: Marilin Yuen on 05-17-2025 MCHC (RBC) [Mass/Vol] 33.2 g/dL 32-36 [facility] Mean platelet volume determi nationOrdered By: Marilin Yuen on 05-17-2025 Platelet mean volume (Bld) [Entitic vol] 9.9 fL 6.2-12.0 [facility] Monocyte percentageOrdered B y: Marilin Yuen on 05-17-2025 Monocytes/100 WBC (Bld) 8.3 % 0-10 [facility] Neutrophil percentageOrdered By: Marilin Yuen on 05-17-2025 Neutrophils/100 WBC (Bld) 56.5 % 47-70 [facility] Nucleated red blood cell per centageOrdered By: Marilin Yuen on 05-17-2025 Nucleated RBC/100 WBC (Bld) [Ratio] 0 % 0-5 [facility] Platelet countOrdered By: Miguel Ángel Yuen on 05-17-2025 Platelets (Bld) [#/Vol] 341 10*3/uL 150-450 [facility] Potassium measurement (mass/ volume)Ordered By: Marilin Yuen on 05-17-2025 Potassium (Unsp spec) [Mass/Vol] 3.6 mmol/L 3.3-5.1 [facility] RBC Auto (Bld) [#/Vol]Ordere d By: Marilin Yuen on 05-17-2025 RBC (Bld) [#/Vol] 4.76 10*6/uL 4.2-5.[address] [facility] Screening total cholesterol/ high density lipoprotein (HDL) cholesterol ratioOrdered By: Marilin Yuen on 05-17-2025 Cholesterol.total/Chol esterol in HDL [Mass ratio] 2.58 {ratio} [facility] Serum creatinine measurement (mass/volume)Ordered By: Marilin Yuen on 05-17-2025 Creatinine [Mass/Vol] 0.80 mg/dL 0.70-1.20 [facility] Serum globulin measurementOr dered By: Marilin Yuen on 05-17-2025 Globulin (S) [Mass/Vol] 2.7 g/dL 2.2-4.2 [facility] Serum glucose measurement (m ass/volume)Ordered By: Marilin Yuen on 05-17-2025 Glucose [Mass/Vol] 117 mg/dL High 70-99 [facility] Serum or plasma alanine waldrop otransferase (ALT) measurementOrdered By: Marilin Yuen on 05-17-2025 ALT [Catalytic activity/Vol] 21 U/L <35 [facility] Serum or plasma albumin kassandra urement (mass/volume)Ordered By: Marilin Yuen on 05-17-2025 Albumin [Mass/Vol] 4.6 g/dL 3.4-4.8 [facility] Serum or plasma albumin/glob ulin mass ratioOrdered By: Marilin Yuen on 05-17-2025 Albumin/Globulin [Mass ratio] 1.7 {ratio} 0.9-2.4 [facility] Serum or plasma alkaline swetha sphatase measurementOrdered By: Marilin Yuen on 05-17-2025 ALP [Catalytic activity/Vol] 70 U/L 35-104 [facility] Serum or plasma calcium kassandra urement (mass/volume)Ordered By: Marilin Yuen on 05-17-2025 Calcium [Mass/Vol] 9.2 mg/dL 7.6-11.0 [facility] Serum or plasma cholesterol in HDL measurement (mass/volume)Ordered By: Marilin Yuen on 05-17-2025 Cholesterol in HDL [Mass/Vol] 58 mg/dL >40 [facility] Comment on above: National Cholesterol Education Program (NCEP) guidelines:<40 mg/dL: Low HDL-cholesterol (major risk factor for CHD)>= 60 mg/dL: High HDL-cholesterol (negative risk factor for CHD)HDL-cholesterol is affected by a number of factors, e.g. smoking, exercise, hormones, sex and age. Serum or plasma cholesterol measurement (mass/volume)Ordered By: Marilin Yuen on 05-17-2025 Cholesterol [Mass/Vol] 150 mg/dL <201 [facility] Comment on above: Cholesterol level, D esirable <200 mg/dLBorderline high cholesterol 200-239 mg/dLHigh cholesterol >=240 mg/dLRecommendations of the NCEP Adult Treatment Panel for the following risk-cutoff thresholds for the [place] population. Serum or plasma urea nitroge n measurement (mass/volume)Ordered By: Marilin Yuen on 05-17-2025 Urea nitrogen [Mass/Vol] 12 mg/dL 4-19 [facility] Sodium levelOrdered By: Virginia Yuen on 05-17-2025 Sodium [Moles/Vol] 137 mmol/L 133-145 [facility] Spine Cervical W/WO Contrast on 05-17-2025 Spine Cervical W/WO Contrast [facility] Imaging Services [address] [place], [place] [address] Spine Cervical W/WO Contrast MR#: [id number] Acct: [id number] Name: QI PHILIPPE Rep #: [id number] : 1965 F 60 From: Young Jiménez MD PCP: Dr. Bret Gomez MD Status: ADM JAZMIN Study: Spine Cervical W/WO Contrast Date of Exam: Exam# [id number] Ordering Dr: Bret Cisneros DO PROCEDURE: SPINE CERVICAL W/WO CONTRAST 05/17/2025 REASON FOR EXAM: LEFT SIDED PARESTHESIA TECHNIQUE: SPINE CERVICAL W/WO CONTRAST Multiplanar and multisequence images were obtained with intravenous gadolinium-based contrast administration. CONTRAST: Clariscan VOLUME: 15 mL COMPARISON: CTA head and neck 05/16/2025 FINDINGS: Vertebrae: Cervical vertebral body heights are preserved. There is a subcentimeter ovoid T1 and T2 hyperintense lesion within the T2 spinous process which demonstrates fat suppression and is without enhancement, likely a hemangioma. Bone marrow signal is otherwise unremarkable. Alignment: Straightening of the normal cervical lordosis. There is 2 mm of retrolisthesis of C5 on C6. Spinal Cord: Cervical spinal cord is grossly unremarkable allowing for motion artifact, without identifiable enhancement. C2-3: No significant disc bulge. Mild facet arthropathy. No neural foraminal or spinal canal narrowing. C3-4: Mild disc bulge and facet arthrosis. Moderate left and mild right neural foraminal narrowing. No significant spinal canal narrowing. C4-5: Mild disc bulge and facet arthropathy. Mild bilateral neural foraminal narrowing and mild spinal canal narrowing. C5-6: Near-complete disc height loss with moderate disc bulge. Mild facet arthrosis. There is severe left and uxyajuxt-xx-zlgerw right neural foraminal narrowing, with moderate to severe spinal canal narrowing C6-7: Near-complete disc height loss with moderate disc bulge. Mild facet arthrosis. There is ahkehsyi-bu-genqgn right and moderate left neural foraminal narrowing, with moderate spinal canal narrowing C7-T1: Mild disc bulge with bhas-zx-xgsyzzic facet arthrosis, resulting in moderate right neural foraminal narrowing. No significant left neural foraminal or spinal canal narrowing. Postcontrast images: No suspicious contrast enhancement. There is a subcentimeter left thyroid lobe nodule. MRI/Spine Cervical W/WO Contrast IMPRESSION: Rhcqqpqj-df-sjhvjt multilevel degenerative changes of the cervical spine, worst at C5-6 and C6-7 as detailed above. No abnormal cord signal or enhancement within the limitations of motion. Reading Location: [id number] CC: Dr. Bret Cisneros DO; Dr. Bret Gomez MD Client Manager Large Law: Signed Normal [facility] Stress Reporton 05-17-2025 Stress Report [facility] Cardiovascular Services [address] [place] [address] MR#: [id number] Acct: [id number] Name: QI PHILIPPE Rep #: [id number] : 1965 60 From: Kaiser Cee MD Primary Care: Dr. Bret Gomez MD Status: A DM JAZMIN Referring Dr: Sex: F C Stress Test Report Pharmacologic myocardial perfusion stress test. 60-year-old lady with a history of chest pain Resting EKG demonstrates sinus rhythm with a rate of 68 bpm. Resting blood pressure is 116/70 mmHg. 0.4 mg of regadenoson was infused per usual protocol followed by rapid intravenous saline flush injection. Continuous EKG monitoring was performed. The maximum heart rate was 90 bpm which was 56% of max impacted heart rate the maximum workload was 1 metabolic equivalent. At rest there were no ST or T wave changes noted to suggest ischemia and at peak infusion nonspecific ST changes were noted which did not meet the criteria for ischemia. No clinical angina is noted. The final blood pressure was 110/60 mmHg. Myocardial perfusion protocol. 11.8 mCi of technetium 99m sestamibi was injected at rest. 0.4 mg of regadenoson was infused per usual protocol. At peak infusion 33.1 mCi of technetium 99m sestamibi was injected stress images were obtained stress and rest images were reconstructed and compared in the short axis vertical long and horizontal long axis. Gated images were also obtained. Perfusion SPECT analysis: Review of the stress images demonstrate normal uptake of tracer noted in all areas of the myocardium. The resting images similar demonstrated normal uptake of tracer noted in all areas of the myocardium. No areas of reversibility are noted to suggest ischemia and no previous infarct is noted. Gated SPECT analysis: The gated ejection fraction is 88%. Conclusion: Normal pharmacologic myocardial perfusion stress test. Preserved ejection fraction. 05/17/251408 Date Kaiser Cee MD CC: Mariama Flanagan; Marga Cox; Zak Chisholm; Debora Mcclendon MD; Samantha Joseph MD; Devante James MD; Dr. Dani Mendez MD; Dr. Glenn Aguayo MD; Dr. Bret Cisneros DO; Dr. Bret Gomez MD; Dr. Ondina Peng MD; Dr. Toby Carney MD; Dr. Samson Darling MD; Dr. Vidal Subramanian MD; Dr. Augustus Glaser DO; Dr. Jose Alberto John MD; Dr. Betina Gore MD; Dr. Marilin Yuen MD; Dr. Ambar Birmingham MD; Dr. Jai Espitia MD; Dr. Aleks Scruggs DO; Dr. Tiffanie Nolasco MD; Edita Tamayo DO; Dorothy Barcenas MD Date Dictated: 05/17/251407 Date Transcribed: 05/17/251407 Client Manager Large Law: [place] Signed Normal [facility] TSH DL <= 0.005 mIU/L QnOrde red By: Marilin Yuen on 05-17-2025 TSH Qn 1.220 uIU/mL 0.300-4.20 0 [facility] Thyroid Stim Hormone (TSH)on 05-17-2025 TSH 1.220 uIU/mL Normal 0.300-4.20 0 [facility] Comment on above: Performed By: #### L 501.080 #### [facility] [address] [place], [address] Total proteinOrdered By: Derek Yuen on 05-17-2025 Protein [Mass/Vol] 7.2 g/dL 5.9-8.4 [facility] Triglycerides measurementOrd ered By: Marilin Yuen on 05-17-2025 Triglyceride [Mass/Vol] 114 mg/dL <199 [facility] Comment on above: The drugs N-Acetylcy steine and Metamizole may falsely depress this assay. Normal range: <150 mg/dLBorderline High: 150-199 mg/dLHigh: 200-499 mg/dLVery High: >500 mg/dL White blood cell (WBC) count Ordered By: Marilin Yuen on 05-17-2025 WBC (Bld) [#/Vol] 6.3 10*3/uL 4.4-11.0 [facility] 12 Lead EKGon 05-16-2025 12 Lead EKG [facility] Cardiovascular Services [address] [place] [address] 12 Lead EKG 05/16/25 1733 MR#: [id number] Acct: [id number] Name: QI PHILIPPE Rep #: [id number] : 1965 60 From: Kaiser Cee MD Attending Dr: Dr. Bret Cisneros, DO Status: ADM JAZMIN Ordering Dr: Marilin Yuen MD Date: 05/16/25 Location: [facility] Sex: F C Admitted: 05/16/25 Test Reason : admit Blood Pressure : */* mmHG Vent. Rate : 61 BPM Atrial Rate : 61 BPM P-R Int : 164 ms QRS Dur : 72 ms QT Int : 440 ms P-R-T Axes : 49 28 23 degrees QTcB Int : 442 ms Normal sinus rhythm Normal ECG When compared with ECG of 16-May-2025 11:54, MANUAL COMPARISON REQUIRED DATA IS UNCONFIRMED Confirmed by COLEMAN WILL, KAISER ([id number]), visual effects editor ALETHEA MATSON ([id number]) on 05/17/2025 11:00:52 AM Referred By: Wilfrid Confirmed By: KAISER CEE MD 05/17/25 1100 Date Kaiser Cee MD CC: Dr. Bret Cisneros DO; Dr. Bret Gomez MD; Dr. Marilin Yuen MD Signed [facility] 12 Lead EKG [facility] Cardiovascular Services [address] [place] [address] 12 Lead EKG 05/16/25 1154 MR#: [id number] Acct: [id number] Name: QI PHILIPPE Rep #: [id number] : 1965 60 From: Kaiser Cee MD Attending Dr: Dr. Bret Cisneros DO Status: ADM JAZMIN Ordering Dr: Aleks Scruggs DO Date: 05/16/25 Location: [facility] Sex: F C Admitted: 05/16/25 Test Reason : chest pain Blood Pressure : */* mmHG Vent. Rate : 72 BPM Atrial Rate : 72 BPM P-R Int : 144 ms QRS Dur : 72 ms QT Int : 418 ms P-R-T Axes : 54 48 18 degrees QTcB Int : 457 ms Normal sinus rhythm Nonspecific ST abnormality Abnormal ECG Confirmed by KAISER CEE MD ([id number]), visual effects editor ALETHEA MATSON ([id number]) on 05/17/2025 11:12:43 AM Referred By: Confirmed By: KAISER CEE MD 05/17/25 1112 Date Kaiser Cee MD CC: Dr. Bret Cisneros DO; Dr. Bret Gomez MD; Dr. Aleks Scruggs DO Signed [facility] Absolute lymphocyte countOrd ered By: ED PROVIDER on 05-16-2025 Lymphocytes Auto (Unsp spec) [#/Vol] 1.48 10*3/uL 0.83-4.51 [facility] Absolute neutrophil countOrd ered By: ED PROVIDER on 05-16-2025 Neutrophils (Bld) [#/Vol] 5.2 10*3/uL 2.0-7.7 [facility] Anion gap in Serum or Plasma Ordered By: Aleks Scruggs on 05-16-2025 Anion gap [Moles/Vol] 13 mmol/L - [facility] Automated lymphocyte count a s percentage of total leukocytesOrdered By: ED PROVIDER on 05-16-2025 Lymphocytes/100 WBC Auto (Unsp spec) 20.8 % [facility] BUN/creatinine ratioOrdered By: Aleks Scruggs on 05-16-2025 Urea nitrogen/Creatinine [Mass ratio] 16.9 mg/mg - [facility] Basic Metabolic Profile (BMP )on 05-16-2025 BUN/CRE 16.9 RATIO Normal 09-12 [facility] Comment on above: Performed By: #### L 501.4021, L100.0100, L500.2500 #### [facility] [address] [place], [address] Calcium [Mass/Vol] 9.6 mg/dL Normal 7.6-11.0 [facility] Comment on above: Performed By: #### L 501.4021, L100.0100, L500.2500 #### [facility] [address] [place], [address] Chloride [Moles/Vol] 101 mmol/L Normal 98-108 [facility] Comment on above: Performed By: #### L 501.4021, L100.0100, L500.2500 #### [facility] [address] [place], [address] CO2 [Moles/Vol] 22.0 mmol/L Normal 21.0-32.0 [facility] Comment on above: Performed By: #### L 501.4021, L100.0100, L500.2500 #### [facility] [address] [place], [address] Creatinine [Mass/Vol] 0.74 mg/dL Normal 0.70-1.20 [facility] Comment on above: Performed By: #### L 501.4021, L100.0100, L500.2500 #### [facility] [address] [place], [address] ECRCL 82.38 ml/min Normal 50-250 [facility] Comment on above: Performed By: #### L 501.4021, L100.0100, L500.2500 #### [facility] [address] [place], [address] GAP 13 Normal 5-15 [facility] Comment on above: Performed By: #### L 501.4021, L100.0100, L500.2500 #### [facility] [address] [place], [address] GFR/1.73 sq M.predicted among non-blacks MDRD (S/P/Bld) [Vol rate/Area] 91 mL/min/{1.73_m2} Normal >60 [facility] Comment on above: Result Comment: mL/m in/1.73m2 CKD-EPI Creatinine Equation (2020) Performed By: #### L 501.4021, L100.0100, L500.2500 #### [facility] [address] [place], [address] Glucose [Mass/Vol] 125 mg/dL High 70-99 [facility] Comment on above: Performed By: #### L 501.4021, L100.0100, L500.2500 #### [facility] [address] [place], [address] Potassium [Moles/Vol] 3.6 mmol/L Normal 3.3-5.1 [facility] Comment on above: Performed By: #### L 501.4021, L100.0100, L500.2500 #### [facility] [address] [place], [address] Sodium [Moles/Vol] 136 mmol/L Normal 133-145 [facility] Comment on above: Performed By: #### L 501.4021, L100.0100, L500.2500 #### [facility] [address] [place], [address] Urea nitrogen [Mass/Vol] 13 mg/dL Normal 4-19 [facility] Comment on above: Performed By: #### L 501.4021, L100.0100, L500.2500 #### [facility] [address] [place], [address] Basophil percentageOrdered B y: ED PROVIDER on 05-16-2025 Basophils/100 WBC (Bld) 0.3 % 0-1 [facility] Bedside Glucoseon 05-16-2025 FINGERSTICK GLU 135 mg/dL High 74-106 [facility] Comment on above: Result Comment: CORIE ROMERO OF PATIENT CARE PER NURSING PROTOCOL Performed By: #### L 501.080 #### [facility] [address] [place], [address] Brain/Head without Contrasto n 05-16-2025 Brain/Head without Contrast [facility] Imaging Services [address] [place] [address] Brain/Head without Contrast MR#: [id number] Acct: [id number] Name: QI PHILIPPE Amparo Rep #: [id number] : 1965 F 60 From: Juan Carrillo MD PCP: Dr. Bret Gomez MD Status: [facility] ER Study: Brain/Head without Contrast Date of Exam: 04/25 02/15 Exam# [id number] Ordering Dr: Aleks Scruggs DO EXAM: NONCONTRAST CT SCAN OF THE HEAD CLINICAL HISTORY: Left upper and lower extremity numbness COMPARISON: None TECHNIQUE: Serial axial series through the head were obtained without contrast. 2-D coronal and sagittal reformats were then obtained. FINDINGS: Brain: There is no acute large territorial infarct, intracranial hemorrhage, midline shift or mass effect. The sella and pineal gland regions appear unremarkable. There is no evidence of cerebellar tonsillar herniation. Ventricles: There is no acute hydrocephalus. Basilar cisterns are patent. Paranasal sinuses: Well-aerated Mastoid air cells: Well-aerated. Calvarium: The bony calvarium is intact. Orbits: The bilateral globes are symmetric, without retrobulbar compressive mass lesion or hemorrhage. CT/Brain/Head without Contrast IMPRESSION: No acute intracranial pathology. Reading Location: JOHN CC: Dr. Bret Gomez MD; Dr. Aleks Scruggs DO Client Manager Large Law: Signed Normal [facility] CBC W/Diff, Automatedon 04-25 Absolute Lymph 1.48 X10 3/uL Normal 0.83-4.51 [facility] Comment on above: Performed By: #### L 501.4021, L100.0100, L500.2500 #### [facility] [address] [place], [address] Absolute Neut 5.2 X10 3/uL Normal 2.0-7.7 [facility] Comment on above: Performed By: #### L 501.4021, L100.0100, L500.2500 #### [facility] [address] [place], [address] Basophils/100 WBC (Bld) 0.3 % Normal 0-1 [facility] Comment on above: Performed By: #### L 501.4021, L100.0100, L500.2500 #### [facility] [address] [place], [address] Eosinophils/100 WBC (Bld) 0.3 % Normal 0-5 [facility] Comment on above: Performed By: #### L 501.4021, L100.0100, L500.2500 #### [facility] [address] [place], [address] Erythrocyte distribution width (RBC) [Ratio] 11.9 % Normal 11.6-14.6 [facility] Comment on above: Performed By: #### L 501.4021, L100.0100, L500.2500 #### [facility] [address] [place], [address] Hematocrit (Bld) [Volume fraction] 41.2 % Normal 37-47 [facility] Comment on above: Performed By: #### L 501.4021, L100.0100, L500.2500 #### [facility] [address] [place], [address] Hemoglobin (Bld) [Mass/Vol] 13.8 g/dL Normal 12.0-15.0 [facility] Comment on above: Performed By: #### L 501.4021, L100.0100, L500.2500 #### [facility] [address] [place], [address] IG% 0.300 Normal 0.0-0.9 [facility] Comment on above: Result Comment: IG% - Immature Granulocytes (promyelocytes, myelocytes and metamyelocytes) > 1% indicates that a LEFT SHIFT is Present. Performed By: #### L 501.4021, L100.0100, L500.2500 #### [facility] [address] [place], [address] Lymphocytes/100 WBC (Bld) 20.8 % Normal 19-41 [facility] Comment on above: Performed By: #### L 501.4021, L100.0100, L500.2500 #### [facility] [address] [place], [address] MCH (RBC) [Entitic mass] 28.9 pg Normal 27.0-32.0 [facility] Comment on above: Performed By: #### L 501.4021, L100.0100, L500.2500 #### [facility] [address] [place], [address] MCHC (RBC) [Mass/Vol] 33.5 g/dL Normal 32-36 [facility] Comment on above: Performed By: #### L 501.4021, L100.0100, L500.2500 #### [facility] [address] [place], [address] MCV (RBC) [Entitic vol] 86.4 fL Normal 81-99 [facility] Comment on above: Performed By: #### L 501.4021, L100.0100, L500.2500 #### [facility] [address] [place], [address] Monocytes/100 WBC (Bld) 5.3 % Normal 0-10 [facility] Comment on above: Performed By: #### L 501.4021, L100.0100, L500.2500 #### [facility] [address] [place], [address] Neutrophils/100 WBC (Bld) 73.0 % High 47-70 [facility] Comment on above: Performed By: #### L 501.4021, L100.0100, L500.2500 #### [facility] [address] [place], [address] Nucleated RBC (Bld) [#/Vol] 0 10*3/uL Normal 0-5 [facility] Comment on above: Performed By: #### L 501.4021, L100.0100, L500.2500 #### [facility] [address] [place], [address] Platelet mean volume (Bld) [Entitic vol] 9.9 fL Normal 6.2-12.0 [facility] Comment on above: Performed By: #### L 501.4021, L100.0100, L500.2500 #### [facility] [address] [place], [address] Platelets (Bld) [#/Vol] 328 10*3/uL Normal 150-450 [facility] Comment on above: Performed By: #### L 501.4021, L100.0100, L500.2500 #### [facility] [address] [place], [address] RBC (Bld) [#/Vol] 4.77 10*6/uL Normal 4.2-5.[address] [facility] Comment on above: Performed By: #### L 501.4021, L100.0100, L500.2500 #### [facility] [address] [place], [address] RDW SD 37.5 fl Normal 35.1-43.9 [facility] Comment on above: Performed By: #### L 501.4021, L100.0100, L500.2500 #### [facility] [address] [place], [address] WBC (Bld) [#/Vol] 7.1 10*3/uL Normal 4.4-11.0 [facility] Comment on above: Performed By: #### L 501.4021, L100.0100, L500.2500 #### [facility] [address] [place], [address] CTA Head AND Neck W/ Contras ton 05-16-2025 CTA Head AND Neck W/ Contrast [facility] Imaging Services [address] [place] [address] CTA Head AND Neck W/ Contrast MR#: [id number] Acct: [id number] Name: QI PHILIPPE Rep #: [id number] : 1965 F 60 From: Young Jiménez MD PCP: Dr. Bret Gomez MD Status: ADM JAZMIN Study: CTA Head AND Neck W/ Contrast Date of Exam: Exam# [id number] Ordering Dr: Marilin Yuen MD PROCEDURE: CTA HEAD AND NECK W/ CONTRAST 05/16/2025 REASON FOR EXAM: INTERMITTENT NUMBNESS AND TINGLING IN LEFT SIDE TECHNIQUE: CTA HEAD AND NECK W/ CONTRAST Multiplanar Sagittal and Coronal images were obtained. 3D post processing was performed CONTRAST: 100 mL Isovue 370 One or more dose reduction techniques were used (e.g., Automated exposure control, adjustment of the mA and/or kV according to patient size, use of iterative reconstruction technique). RADIATION DOSE SUMMARY: CTDlvol: 17.6 mGy DLP: 709 mGycm COMPARISON: Same date CT head FINDINGS: Aortic Arch: Incidental note of a right aortic arch, with minimal atherosclerosis. Brachiocephalic and Subclavians: Unremarkable RIGHT Carotid: Right CCA: Unremarkable. Right ICA: Unremarkable. Maximum stenosis (NASCET): <50 % Right ECA: Unremarkable. LEFT Carotid: Left CCA: Trace calcified atherosclerosis at the carotid bulb. Left ICA: Unremarkable. Maximum stenosis (NASCET): <50 % Left ECA: Unremarkable. Vertebrals: Codominant. Arise from the subclavians. Both vertebrals form the basilar. RIGHT Vertebral: Unremarkable. LEFT Vertebral: Unremarkable. Anatomy: [place] anatomy is normal. Aneurysm or AVM: No intracranial aneurysms or large vascular malformations are identified. Anterior cerebral arteries: Unremarkable: Middle cerebral arteries: Unremarkable. Basilar artery: Unremarkable. Posterior cerebral arteries: Unremarkable. Other major branches of the posterior circulation: Unremarkable. Major venous structures: Unremarkable. Other findings: Neck: There are thyroid nodules measuring up to 1.6 cm in the left lobe (series 2, image 111). No lymphadenopathy. Lungs: Solid nodule in the left upper lobe measuring 8 mm (series 2, image 47). Bones: Degenerative changes. CT/CTA Head AND Neck W/ Contrast IMPRESSION: 1. No hemodynamically significant narrowing or large vessel occlusion of the head or neck vasculature. 2. Solid pulmonary nodule in the left upper lobe measuring 8 mm. Recommend dedicated chest CT. 3. Thyroid nodules measuring up to 1.6 cm. Recommend thyroid ultrasound. 4. Right-sided aortic arch. Reading Location: [id number] CC: Dr. Bret Gomez MD; Dr. Marilin Yuen MD Client Manager Large Law: Signed Normal [facility] Carbon dioxide, total [Moles /volume] in Central venous bloodOrdered By: Aleks Scruggs on 05-16-2025 CO2 [Moles/Vol] 22.0 mmol/L 21.0-32.0 [facility] Chest 1 View (Portable)on Chest 1 View (Portable) [facility] Imaging Services [address] [place] [address] Chest 1 View (Portable) MR#: [id number] Acct: [id number] Name: QI PHILIPPE Rep #: [id number] : 1965 F 60 From: Juan Carrillo MD PCP: Dr. Bret Gomez MD Status: PRE ER Study: Chest 1 View (Portable) Date of Exam: 05/16/25 Exam# [id number] Ordering Dr: Gunjan,Ed P. PROCEDURE: CHEST 1 VIEW (PORTABLE) 05/16/2025 [...] Dr. Bret Gomez MD; ED PHYSICIAN PROVIDER Client Manager Large Law: Signed Normal [facility] Chloride assayOrdered By: Juan Alberto Scruggs on 05-16-2025 Chloride [Moles/Vol] 101 mmol/L 98-108 [facility] Emergency Department Summary on 05-16-2025 Emergency Department Summary [facility] Medical Records Department [address] [place] [address] Emergency Department Summary 05/16/25 MR#: [id number] Acct: [id number] Name: QI PHILIPPE Rep #: [id number] : 1965 60 From: Aleks Scruggs DO PCP: Dr. Bret Gomez MD Status:REG ER Location: ED HPI History of Present [...] most when she gets up and walks around and states it does get better with rest. States that she had a stress test many years ago but has not had one since. She states that her family does have a history of heart disease with previous heart attacks and open heart surgeries. [facility] Medical History Abdominal pain Fatty liver High cholesterol Easy bruising History of hiatal hernia History of ulceration Leg cramps Wears glasses Post-menopausal Depression Anxiety Back pain History of IBS Gastric reflux Former smoker History of stress test FH: colon cancer Hx of colonic polyp GERD (gastroesophageal reflux disease) IBS (irritable bowel syndrome) Arthritis Diabetes Chest pain Hypertension Home Medications ???Medication ???Instructions ???Recorded ???Last Taken ???Type lisinopril 20 1 tab PO DAILY 06/11/14 05/16/25 H istory mg-hydrochlorothiazide 25 mg tablet multivitamin 1 tab PO DAILY 02/06/21 05/16/25 H istory calcium 600 mg (as 1 tab PO Q12H 05/01/22 05/16/25 Hi story carbonate)-vitamin D3 10 mcg (400 unit) tablet (Calcium 600 + D(3)) metformin 500 mg tablet 250 mg PO BID 10/28/23 05/16/25 Hi story pravastatin 40 mg tablet 40 mg PO QHS 03/21/24 05/15/25 His tory omeprazole 40 mg capsule,delayed 40 mg PO QDAY #90 caps 04/15/25 Rx release sucralfate 1 gram tablet 1 g PO TID ulcers #90 tabs 5 05/16/25 Rx Allergy/AdvReac Type Severity Reaction Status [...] following commands knew that she was at [facility] year is 2024 Skin: Warm, dry, [...] Room Air 05/16/25 13:00 05/16/25 14:00 05/16/25 14:5 (more content not included)... Normal [facility] Eosinophil percentageOrdered By: ED PROVIDER on 05-16-2025 Eosinophils/100 WBC (Bld) 0.3 % 0-5 [facility] Erythrocyte distribution wid th ratioOrdered By: ED PROVIDER on 05-16-2025 Erythrocyte distribution width (RBC) [Ratio] 11.9 % 11.6-14.6 [facility] Erythrocyte distribution wid th standard deviationOrdered By: ED PROVIDER on 05-16-2025 Erythrocyte distribution width (RBC) [Ratio] 37.5 fl 35.1-43.9 [facility] Glomerular filtration rate ( GFR) estimation/1.73 sq m using serum, plasma, or whole bOrdered By: Aleks Scruggs on 05-16-2025 GFR/1.73 sq M.predicted among non-blacks MDRD (S/P/Bld) [Vol rate/Area] 91 mL/min/{1.73_m2} >60 [facility] Comment on above: mL/min/1.73m2 CKD-EP I Creatinine Equation (2020) H AND P Exam - [facility] 05-16-2025 H&P Exam - Hospitalist [facility] Medical Records Department [address] [place] [address] H P Exam - Hospitalist 05/16/25 1600 MR#: [id number] Acct: [id number] Name: QI PHILIPPE Rep #: [id number] : 1965 60 From: Marilin Yuen MD PCP: Dr. Bret Gomez MD Status:ADM JAZMIN Location: [place] [address] HPI - General General Date of Admission: 05/16/25 Date of Service: 05/16/25 Chief Complaint: Chest pain and left sided numbness and tingling HPI Narrative QI PHILIPPE, is a 60-year-old female history of depression, anxiety, GERD, hypertension, diabetes who presented [facility] ED 05/16/2025 for chest pain, nausea, numbness and tingling in the left arm and lower extremity. Reportedly her chest pain and numbness and tingling have been going on for several days, the chest pain has been on the left side of her chest towards her left shoulder that is progressively worsened, worse when she gets up and moves around and does get better with rest. No recent stress test. Does have family history of heart disease. CT head negative, troponins negative and workup otherwise unremarkable. Hospitalist contacted for admission for chest pain rule out. Patient evaluated at bedside and reports she is coming in for 2 reasons, the intermittent left arm and leg numbness and tingling and some left shoulder pain with some possible reflux-like symptoms. Patient reports that for several days she will get some numb and tingling feeling in her hand and below the knee on the left side that comes and goes does not seem to have any other associations, denies any recent falls or neck pain, did have a flareup of pain in her left knee for which she got a cortisone injection a week ago and that has improved. In regards to the concern for chest pain she reports she had some possible pressure-like sensation versus heartburn that has happened intermittently as well as some left shoulder pain however even when she does not have the heartburn the shoulder pain persists. Occasionally will feel lightheaded and dizzy with some nausea. Does report she has a history of ulcers and has been on sucralfate for the past 1 year, denies any abdominal pain, not taking any ibuprofen. Does have a slight headache but reports she gets them when she has allergies and sinus problems which she reports has been present over the past week [facility] Medical History Abdominal pain Fatty liver High cholesterol Easy bruising History of hiatal hernia History of ulceration Leg cramps Wears glasses Post-menopausal Depression Anxiety Back pain History of IBS Gastric reflux Former smoker History of stress test FH: colon cancer Hx of colonic polyp GERD (gastroesophageal reflux disease) IBS (irritable bowel syndrome) Arthritis Diabetes Chest pain Hypertension Home Medications ???Medication ???Instructions ???Recorded ???Last Taken ???Type lisinopril 20 1 tab PO DAILY 06/11/14 05/16/25 H istory mg-hydrochlorothiazide 25 mg tablet multivitamin 1 tab PO DAILY 02/06/21 05/16/25 H istory calcium 600 mg (as 1 tab PO Q12H 05/01/22 05/16/25 Pa story carbonate)-vitamin D3 10 mcg (400 unit) tablet (Calcium 600 + D(3)) metformin 500 mg tablet 250 mg PO BID 10/28/23 05/16/25 Hi story pravastatin 40 mg tablet 40 mg PO QHS 03/21/24 05/15/25 His tory omeprazole 40 mg capsule,delayed 40 mg PO QDAY #90 caps 04/15/25 Rx release sucralfate 1 gram tablet 1 g PO TID ulcers #90 tabs 5 05/16/25 Rx Allergy/AdvReac Type Severity Reaction Status [...] intake frequency: holidays/special occasions only ROS ROS Narrative General: Denies fever/chills HENT: Little bit of a headache and allergy symptoms, denies anything unusual for her EYES: Denies changes in vision Resp: Denies cough, denies shortness of breath Cardiac: Pleth some epigastric burning or pressure intermittently GI: Denies abdominal pain, denies changes in bowel, occasionally will get some nausea : Denies changes in urination Extremity: Denies swelling MSK: Denies weakness Neuro: Intermittent numbness and tingling in left hand and left leg below the knee Heme: Denies any bleeding or bruising Ski (more content not included)... Normal [facility] Hematocrit Auto (Bld) [Volum e fraction]Ordered By: ED PROVIDER on 05-16-2025 Hematocrit (Bld) [Volume fraction] 41.2 % 37-47 [facility] Hemoglobin measurementOrdere d By: ED PROVIDER on 05-16-2025 Hemoglobin (Bld) [Mass/Vol] 13.8 g/dL 12.0-15.0 [facility] Immature granulocytes/100 WB C Auto (Bld)Ordered By: ED PROVIDER on 06-23-2025 Immature granulocytes/100 WBC (Bld) 0.300 % 0.0-0.9 [facility] Comment on above: IG% - Immature Granu locytes (promyelocytes, myelocytes and metamyelocytes) > 1% indicates that a LEFT SHIFT is Present. L499.0042on 05-16-2025 Trop T High Sen < 6 Normal <=14 [facility] Comment on above: Performed By: #### L 501.080 #### [facility] [address] [place], [address] L499.0043on 05-16-2025 Trop T High Sen < 6 Normal <=14 [facility] Comment on above: Performed By: #### L 499.0043 #### [facility] [address] [place], [address] L501.4021on 05-16-2025 Trop T High Sen < 6 Normal <=14 [facility] Comment on above: Performed By: #### L 501.4021, L100.0100, L500.2500 #### [facility] [address] [place], [address] MCV (mean corpuscular volume ) determinationOrdered By: ED PROVIDER on 05-16-2025 MCV (RBC) [Entitic vol] 86.4 fL 81-99 [facility] Mean corpuscular hemoglobin (MCH) determinationOrdered By: ED PROVIDER on 05-16-2025 MCH (RBC) [Entitic mass] 28.9 pg 27.0-32.0 [facility] Mean corpuscular hemoglobin concentration (MCHC) determinationOrdered By: ED PROVIDER on 05-16-2025 MCHC (RBC) [Mass/Vol] 33.5 g/dL 32-36 [facility] Mean platelet volume determi nationOrdered By: ED PROVIDER on 05-16-2025 Platelet mean volume (Bld) [Entitic vol] 9.9 fL 6.2-12.0 [facility] Monocyte percentageOrdered B y: ED PROVIDER on 05-16-2025 Monocytes/100 WBC (Bld) 5.3 % 0-10 [facility] Neutrophil percentageOrdered By: ED PROVIDER on 05-16-2025 Neutrophils/100 WBC (Bld) 73.0 % High 47-70 [facility] [place] Nucleated red blood cell per centageOrdered By: ED PROVIDER on 05-16-2025 Nucleated RBC/100 WBC (Bld) [Ratio] 0 % 0-5 [facility] [place] Platelet countOrdered By: ED PROVIDER on 05-16-2025 Platelets (Bld) [#/Vol] 328 10*3/uL 150-450 [facility] [place] Potassium measurement (mass/ volume)Ordered By: Aleks Scruggs on 05-16-2025 Potassium (Unsp spec) [Mass/Vol] 3.6 mmol/L 3.3-5.1 [facility] [place] RBC Auto (Bld) [#/Vol]Ordere d By: ED PROVIDER on 05-16-2025 RBC (Bld) [#/Vol] 4.77 10*6/uL 4.2-5.[address] [facility] Serum creatinine measurement (mass/volume)Ordered By: Aleks Scruggs on 05-16-2025 Creatinine [Mass/Vol] 0.74 mg/dL 0.70-1.20 [facility] Serum glucose measurement (m ass/volume)Ordered By: Aleks Scruggs on 05-16-2025 Glucose [Mass/Vol] 125 mg/dL High 70-99 [facility] Serum or plasma calcium kassandra urement (mass/volume)Ordered By: Aleks Scruggs on 05-16-2025 Calcium [Mass/Vol] 9.6 mg/dL 7.6-11.0 [facility] Serum or plasma urea nitroge n measurement (mass/volume)Ordered By: Aleks Scruggs on 05-16-2025 Urea nitrogen [Mass/Vol] 13 mg/dL 4-19 [facility] [place] Sodium levelOrdered By: Alex Scruggs on 05-16-2025 Sodium [Moles/Vol] 136 mmol/L 133-145 [facility] Troponin T.cardiac [Mass/vol ume] in Serum or Plasma by High sensitivity methodOrdered By: Aleks Scruggs on 05-16-2025 Troponin T.cardiac High sensitivity method [Mass/Vol] < 6 ng/L <14 [facility] [place] Troponin T.cardiac High sensitivity method [Mass/Vol] < 6 ng/L <14 [facility] [place] Troponin T.cardiac High sensitivity method [Mass/Vol] < 6 ng/L <14 [facility] [place] White blood cell (WBC) count Ordered By: ED PROVIDER on 05-16-2025 WBC (Bld) [#/Vol] 7.1 10*3/uL 4.4-11.0 [facility] Knee 4 or More Viewson 05-04 Knee 4 or More Views [facility] [address] [place] [address] Knee 4 or More Views MR#: [id number] Acct: [id number] Name: QI PHILIPPE Rep #: [id number] : 1965 F 60 From: Augustus Helton MD PCP: Dr. Bret Gomez MD Status: DEP AMB Study: Knee 4 or More Views Date of Exam: 05/04/25 Exam# [id number] Ordering Dr: Coty Orourke PROCEDURE: KNEE 4 [...] osteoarthrosis. No acute osseous abnormalities. Reading Location: [place] [address] CC: NICOLE Orourke; Dr. Bret Gomez MD Client Manager Large Law: Signed Normal [facility] [place] Orthopedic Visit Reporton Orthopedic Visit Report [facility] [place] [facility] [address] [place] [address] [address] [place] [address] OFFICE VISIT Date of Service: 05/04/25 MR#: [id number] Acct: [id number] Name: QI PHILIPPE Rep #: [id number] : 1965 Provider: NICOLE kennedy Age/Sex: 60/F [...] provided and the decisions made by me, MAHSA PattersonC 05/04/25 7020. Part of today???s visit was documented by [...] walking on her knee. Patient went to [facility] right after to get a knee brace to give her more support. Over the past couple weeks it has been getting better. Patient states that she has tore her ACL 4 times in the past. Patient had Arthroscopic surgery 20 years on the left knee. She got her surgery done right at the [facility]. Moving the left knee a certain way [...] recent U (more content not included)... Normal [facility] [place] PAP IG HPV HR APTIMAon 10-29 ADEQ Comment Normal . [facility] [place] Comment on above: Order Comment: Speci men Comment: [id number] Specimen Comment: Source.............Cervix;Endocervix Specimen Comment: No. of containers..01 ThinPrep Vial Result Comment: Spec imen processed and examined but unsatisfactory for evaluation of epithelial abnormality because of insufficient cellularity. Performed By: #### L 7400.0377 #### [facility] [place] [facility] [address] [place], [address] COMM . Normal . [facility] [place] Comment on above: Order Comment: Speci men Comment: [id number] Specimen Comment: Source.............Cervix;Endocervix Specimen Comment: No. of containers..01 ThinPrep Vial Performed By: #### L 7400.0377 #### [facility] [place] [facility] [address] [place], [place], [id number] COMMENT Comment Normal . [facility] [place] Comment on above: Order Comment: Speci men Comment: [id number] Specimen Comment: Source.............Cervix;Endocervix Specimen Comment: No. of containers..01 ThinPrep Vial Result Comment: This liquid based ThinPrep(R) pap test was screened with the use of an image guided system. Performed By: #### L 7400.0377 #### [facility] [place] [facility] [address] [place], [place], [id number] DIAG Comment Normal . [facility] [place] Comment on above: Order Comment: Speci men Comment: [id number] Specimen Comment: Source.............Cervix;Endocervix Specimen Comment: No. of containers..01 ThinPrep Vial Result Comment: UNSA TISFACTORY FOR EVALUATION. Performed By: #### L 7400.0377 #### [facility] [place] [facility] [address] [place], [address] HPV APTIMA, HR Negative Normal Negative [facility] [place] Comment on above: Order Comment: Speci men Comment: [id number] Specimen Comment: Source.............Cervix;Endocervix Specimen Comment: No. of containers..01 ThinPrep Vial Result Comment: This nucleic acid amplification test detects fourteen high- risk HPV types (16,18,31,33,35,39,45,51,52,56,58,59,66,68) without differentiation. Performed at: [facility] [address] [place] [id number] Repeater Chief: Johnie Douglas MD, Phone: [phone] Performed at: [address] [id number] Repeater Chief: Sharonda Burgess MD, Phone: [phone] Performed at: =[facility] [id number] Repeater Chief: Sharonda Burgess MD, Phone: [phone] Performed By: #### L 7400.0377 #### [facility] [place] [facility] [address] [place], [place], [address] PAPSMR Comment Normal . [facility] [place] Comment on above: Order Comment: Speci men Comment: [id number] Specimen Comment: Source.............Cervix;Endocervix Specimen Comment: No. of containers..01 ThinPrep Vial Result Comment: The Pap smear is a screening test designed to aid in the detection of premalignant and malignant conditions of the uterine cervix. It is not a diagnostic procedure and should not be used as the sole means of detecting cervical cancer. Both false-positive and false-negative reports do occur. Performed By: #### L 7400.0377 #### [facility] [place] [facility] [address] [place], [place], [id number] PERFORM Comment Normal . [facility] [place] Comment on above: Order Comment: Speci men Comment: [id number] Specimen Comment: Source.............Cervix;Endocervix Specimen Comment: No. of containers..01 ThinPrep Vial Result Comment: Yokasta [employer] Setup Worker (ASCP) Performed By: #### L 7400.0377 #### [facility] [place] [facility] [address] [place], [place], [address] QC REV Comment Normal . [facility] [place] Comment on above: Order Comment: Speci men Comment: [id number] Specimen Comment: Source.............Cervix;Endocervix Specimen Comment: No. of containers..01 ThinPrep Vial Result Comment: Cedrick Peralta [employer] Setup Worker (ASCP) Performed By: #### L 7400.0377 #### [facility] [place] [facility] [address] [place], [place], [id number] RECOMM Comment Normal . [facility] [place] Comment on above: Order Comment: Speci men Comment: [id number] Specimen Comment: Source.............Cervix;Endocervix Specimen Comment: No. of containers..01 ThinPrep Vial Result Comment: Sugg est follow up as clinically appropriate. Performed By: #### L 7400.0377 #### [facility] [place] [facility] [address] [place], [place], [phone] CBC W/Diff, Automatedon 11-0 Absolute Lymph 1.73 X10 3/uL Normal 0.83-4.51 [facility] [place] Comment on above: Order Comment: Order Date: 09/27/24Order Info: 0184-1 - CBCD Performed By: #### L 501.080 #### [facility] [place] [facility] [address] [place], [address] Absolute Neut 9.4 X10 3/uL High 2.0-7.7 [facility] [place] Comment on above: Order Comment: Order Date: 09/27/24Order Info: 4-1 - CBCD Performed By: #### L 501.080 #### [facility] [place] [facility] [address] [place], [address] Basophils/100 WBC (Bld) 0.2 % Normal 0-1 [facility] [place] Comment on above: Order Comment: Order Date: 09/27/24Order Info: 183- - CBCD Performed By: #### L 501.080 #### [facility] [place] [facility] [address] [place], [address] Eosinophils/100 WBC (Bld) 1.3 % Normal 0-5 [facility] [place] Comment on above: Order Comment: Order Date: 09/27/24Order Info: 183- - CBCD Performed By: #### L 501.080 #### [facility] [place] [facility] [address] [place], [address] Erythrocyte distribution width (RBC) [Ratio] 11.9 % Normal 11.6-14.6 [facility] [place] Comment on above: Order Comment: Order Date: 09/27/24Order Info: 018-1 - CBCD Performed By: #### L 501.080 #### [facility] [place] [facility] [address] [place], [address] Hematocrit (Bld) [Volume fraction] 44.0 % Normal 37-47 [facility] [place] Comment on above: Order Comment: Order Date: 09/27/24Order Info: 0184-1 - CBCD Performed By: #### L 501.080 #### [facility] [place] [facility] [address] [place], [address] Hemoglobin (Bld) [Mass/Vol] 14.0 g/dL Normal 12.0-15.0 [facility] [place] Comment on above: Order Comment: Order Date: 09/27/24Order Info: 0184-1 - CBCD Performed By: #### L 501.080 #### [facility] [place] [facility] [address] [place], [address] IG% 0.300 Normal 0.0-0.9 [facility] [place] Comment on above: Order Comment: Order Date: 09/27/24Order Info: 0184- - CBCD Result Comment: IG% - Immature Granulocytes (promyelocytes, myelocytes and metamyelocytes) > 1% indicates that a LEFT SHIFT is Present. Performed By: #### L 501.080 #### [facility] [place] [facility] [address] [place], [address] Lymphocytes/100 WBC (Bld) 14.4 % Low 19-41 [facility] [place] Comment on above: Order Comment: Order Date: 09/27/24Order Info: 0184- - CBCD Performed By: #### L 501.080 #### [facility] [place] [facility] [address] [place], [address] MCH (RBC) [Entitic mass] 28.9 pg Normal 27.0-32.0 [facility] [place] Comment on above: Order Comment: Order Date: 09/27/24Order Info: 0184- - CBCD Performed By: #### L 501.080 #### [facility] [place] [facility] [address] [place], [address] MCHC (RBC) [Mass/Vol] 31.8 g/dL Low 32-36 [facility] Comment on above: Order Comment: Order Date: 09/27/24Order Info: 0184-1 - CBCD Performed By: #### L 501.080 #### [facility] [place] [facility] [address] [place], [address] MCV (RBC) [Entitic vol] 90.7 fL Normal 81-99 [facility] [place] Comment on above: Order Comment: Order Date: 09/27/24Order Info: 0184-1 - CBCD Performed By: #### L 501.080 #### [facility] [place] [facility] [address] [place], [address] Monocytes/100 WBC (Bld) 5.7 % Normal 0-10 [facility] [place] Comment on above: Order Comment: Order Date: 09/27/24Order Info: 4-1 - CBCD Performed By: #### L 501.080 #### [facility] [place] [facility] [address] [place], [address] Neutrophils/100 WBC (Bld) 78.1 % High 47-70 [facility] [place] Comment on above: Order Comment: Order Date: 09/27/24Order Info: 183- - CBCD Performed By: #### L 501.080 #### [facility] [place] [facility] [address] [place], [address] Nucleated RBC (Bld) [#/Vol] 0 10*3/uL Normal 0-5 [facility] [place] Comment on above: Order Comment: Order Date: 09/27/24Order Info: 018- - CBCD Performed By: #### L 501.080 #### [facility] [place] [facility] [address] [place], [address] Platelet mean volume (Bld) [Entitic vol] 10.5 fL Normal 6.2-12.0 [facility] [place] Comment on above: Order Comment: Order Date: 09/27/24Order Info: 018-1 - CBCD Performed By: #### L 501.080 #### [facility] [place] [facility] [address] [place], [address] Platelets (Bld) [#/Vol] 333 10*3/uL Normal 150-450 [facility] [place] Comment on above: Order Comment: Order Date: 09/27/24Order Info: 0184-1 - CBCD Performed By: #### L 501.080 #### [facility] [place] [facility] [address] [place], [address] RBC (Bld) [#/Vol] 4.85 10*6/uL Normal 4.2-5.[address] [facility] Comment on above: Order Comment: Order Date: 09/27/24Order Info: 0184-1 - CBCD Performed By: #### L 501.080 #### [facility] [place] [facility] [address] [place], [address] RDW SD 39.4 fl Normal 35.1-43.9 [facility] [place] Comment on above: Order Comment: Order Date: 09/27/24Order Info: 0184- - CBCD Performed By: #### L 501.080 #### [facility] [place] [facility] [address] [place], [address] WBC (Bld) [#/Vol] 12.0 10*3/uL High 4.4-11.[address] [facility] Comment on above: Order Comment: Order Date: 09/27/24Order Info: 0184-1 - CBCD Performed By: #### L 501.080 #### [facility] [place] [facility] [address] [place], [address] Comprehensive Metabolic Prof ilon 09-27-2024 Albumin [Mass/Vol] 4.3 g/dL Normal 3.2-5.0 [facility] Comment on above: Order Comment: Order Date: 09/27/24Order Info: 0786-1 - CMPOrder Info: [id number] - LIPIDComments: non-fastingOrder Info: 3016-3 - TSHnon-fasting Performed By: #### L 501.080 #### [facility] [place] [facility] [address] [place], [address] Albumin/Globulin [Mass ratio] 1.2 {ratio} Normal 0.9-2.4 [facility] [place] Comment on above: Order Comment: Order Date: 09/27/24Order Info: 0786-1 - CMPOrder Info: [id number] - LIPIDComments: non-fastingOrder Info: [id number] - TSHnon-fasting Performed By: #### L 501.080 #### [facility] [place] [facility] [address] [place], [address] ALK P 69 U/L Normal 45-117 [facility] [place] Comment on above: Order Comment: Order Date: 09/27/24Order Info: 785-1 - CMPOrder Info: [id number] - LIPIDComments: non-fastingOrder Info: 3 - TSHnon-fasting Performed By: #### L 501.080 #### [facility] [place] [facility] [address] [place], [address] ALT [Catalytic activity/Vol] 31 U/L Normal 13-56 [facility] [place] Comment on above: Order Comment: Order Date: 09/27/24Order Info: 785-1 - CMPOrder Info: [id number] - LIPIDComments: non-fastingOrder Info: [id number] - TSHnon-fasting Performed By: #### L 501.080 #### [facility] [place] [facility] [address] [place], [address] AST [Catalytic activity/Vol] 24 U/L Normal 15-37 [facility] [place] Comment on above: Order Comment: Order Date: 09/27/24Order Info: [id number] - CMPOrder Info: [id number] - LIPIDComments: non-fastingOrder Info: [id number] - TSHnon-fasting Performed By: #### L 501.080 #### [facility] [place] [facility] [address] [place], [address] Bilirubin [Mass/Vol] 0.70 mg/dL Normal 0.20-1.00 [facility] [place] Comment on above: Order Comment: Order Date: 09/27/24Order Info: 0786-1 - CMPOrder Info: [id number] - LIPIDComments: non-fastingOrder Info: [id number] - TSHnon-fasting Result Comment: For patients on eltrombopag therapy, use of Dimension [place] TBIL is not recommended. Performed By: #### L 501.080 #### [facility] [place] [facility] [address] [place], [address] BUN/CRE 21.2 RATIO High 10-20 [facility] [place] Comment on above: Order Comment: Order Date: 09/27/24Order Info: 785-1 - CMPOrder Info: [id number] - LIPIDComments: non-fastingOrder Info: 3016-3 - TSHnon-fasting Performed By: #### L 501.080 #### [facility] [place] [facility] [address] [place], [address] CA,Total 9.2 mg/dL Normal 8.5-10.1 [facility] [place] Comment on above: Order Comment: Order Date: 09/27/24Order Info: 785- - CMPOrder Info: [id number] - LIPIDComments: non-fastingOrder Info: 6-3 - TSHnon-fasting Performed By: #### L 501.080 #### [facility] [place] [facility] [address] [place], [address] Chloride [Moles/Vol] 102 mmol/L Normal 98-107 [facility] [place] Comment on above: Order Comment: Order Date: 09/27/24Order Info: 785-11 - CMPOrder Info: [id number] - LIPIDComments: non-fastingOrder Info: 6-3 - TSHnon-fasting Performed By: #### L 501.080 #### [facility] [place] [facility] [address] [place], [address] CO2 [Moles/Vol] 26.0 mmol/L Normal 21.0-32.0 [facility] [place] Comment on above: Order Comment: Order Date: 09/27/24Order Info: [id number] - CMPOrder Info: [id number] - LIPIDComments: non-fastingOrder Info: [id number] - TSHnon-fasting Performed By: #### L 501.080 #### [facility] [place] [facility] [address] [place], [address] Creatinine [Mass/Vol] 0.75 mg/dL Normal 0.55-1.02 [facility] Comment on above: Order Comment: Order Date: 09/27/24Order Info: 785-1 - CMPOrder Info: [id number] - LIPIDComments: non-fastingOrder Info: 6-3 - TSHnon-fasting Result Comment: The validity of the calculated GFR GFRAA in patients over 70 years has not been determined. Clinical correlation is essential. Performed By: #### L 501.080 #### [facility] [place] [facility] [address] [place], [address] EST GFR - AA 100 mL/min Normal >60 [facility] [place] Comment on above: Order Comment: Order Date: 09/27/24Order Info: 785- - CMPOrder Info: [id number] - LIPIDComments: non-fastingOrder Info: 63 - TSHnon-fasting Result Comment: Afri can Nigerien GFR Calc Performed By: #### L 501.080 #### [facility] [place] [facility] [address] [place], [place], [address] GAP 7 Normal 5-15 [facility] [place] Comment on above: Order Comment: Order Date: 09/27/24Order Info: 785-1 - CMPOrder Info: [id number] - LIPIDComments: non-fastingOrder Info: 63 - TSHnon-fasting Performed By: #### L 501.080 #### [facility] [place] [facility] [address] [place], [place], [address] GFR/1.73 sq M.predicted among non-blacks MDRD (S/P/Bld) [Vol rate/Area] 83 mL/min/{1.73_m2} Normal >60 [facility] [place] Comment on above: Order Comment: Order Date: 09/27/24Order Info: 785- - CMPOrder Info: [id number] - LIPIDComments: non-fastingOrder Info: [id number] - TSHnon-fasting Result Comment: Non- GFR Calc Performed By: #### L 501.080 #### [facility] [place] [facility] [address] [place], [place], [address] Globulin (S) [Mass/Vol] 3.5 g/dL Normal 2.2-4.2 [facility] [place] Comment on above: Order Comment: Order Date: 09/27/24Order Info: 785-1 - CMPOrder Info: [id number] - LIPIDComments: non-fastingOrder Info: 6-3 - TSHnon-fasting Performed By: #### L 501.080 #### [facility] [place] [facility] [address] [place], [address] Glucose [Mass/Vol] 95 mg/dL Normal 74-106 [facility] Comment on above: Order Comment: Order Date: 09/27/24Order Info: 785- - CMPOrder Info: [id number] - LIPIDComments: non-fastingOrder Info: [id number] - TSHnon-fasting Performed By: #### L 501.080 #### [facility] [place] [facility] [address] [place], [address] Potassium [Moles/Vol] 4.0 mmol/L Normal 3.5-5.1 [facility] Comment on above: Order Comment: Order Date: 09/27/24Order Info: 785-1 - CMPOrder Info: [id number] - LIPIDComments: non-fastingOrder Info: 6-3 - TSHnon-fasting Performed By: #### L 501.080 #### [facility] [place] [facility] [address] [place], [address] Sodium [Moles/Vol] 136 mmol/L Normal 136-145 [facility] Comment on above: Order Comment: Order Date: 09/27/24Order Info: 785-1 - CMPOrder Info: [id number] - LIPIDComments: non-fastingOrder Info: [id number] - TSHnon-fasting Performed By: #### L 501.080 #### [facility] [place] [facility] [address] [place], [address] T PROT 7.8 g/dL Normal 6.4-8.2 [facility] [place] Comment on above: Order Comment: Order Date: 09/27/24Order Info: [id number] - CMPOrder Info: [id number] - LIPIDComments: non-fastingOrder Info: [id number] - TSHnon-fasting Performed By: #### L 501.080 #### [facility] [place] [facility] [address] [place], [place], [address] Urea nitrogen [Mass/Vol] 16 mg/dL Normal 7-18 [facility] [place] Comment on above: Order Comment: Order Date: 09/27/24Order Info: [id number] - CMPOrder Info: [id number] - LIPIDComments: non-fastingOrder Info: [id number] - TSHnon-fasting Performed By: #### L 501.080 #### [facility] [place] [facility] [address] [place], [address] Hemoglobin A1con 09-27-2024 HbA1c (Bld) [Mass fraction] 6.0 % High 3.8-5.6 [facility] [place] Comment on above: Order Comment: Order Date: 09/27/24Order Info: [id number] - A1C Result Comment: Norm al < 5.7 % Prediabetic 5.7 - 6.4 % Diabetic >or= 6.5 % Please note range changes. Performed By: #### L 501.080 #### [facility] [place] [facility] [address] [place], [place], [address] Lipid Profileon 09-27-2024 Cholesterol [Mass/Vol] 195 mg/dL Normal 200 [facility] Comment on above: Order Comment: Order Date: 09/27/24Order Info: 0786-1 - CMPOrder Info: [id number] - LIPIDComments: non-fastingOrder Info: [id number] - TSHnon-fasting Result Comment: <200 mg/dL Desirable 200-240 mg/dL Borderline >240 mg/dL High Risk Performed By: #### L 501.080 #### [facility] [place] [facility] [address] [place], [place], [address] Cholesterol in HDL [Mass/Vol] 65 mg/dL Normal [facility] [place] Comment on above: Order Comment: Order Date: 09/27/24Order Info: [id number]- - CMPOrder Info: [id number] - LIPIDComments: non-fastingOrder Info: 6-3 - TSHnon-fasting Result Comment: The drugs N-Acetylcysteine and Metamizole may falsely depress this assay. Reference Range HDL <40 mg/dL Low HDL Cholesterol HDL >or= 60 mg/dL High HDL Cholesterol Performed By: #### L 501.080 #### [facility] [place] [facility] [address] [place], [address] Cholesterol in LDL [Mass/Vol] 89 mg/dL Normal 0-130 [facility] [place] Comment on above: Order Comment: Order Date: 09/27/24Order Info: 785- - CMPOrder Info: [id number] - LIPIDComments: non-fastingOrder Info: 6-3 - TSHnon-fasting Performed By: #### L 501.080 #### [facility] [place] [facility] [address] [place], [address] Cholesterol in VLDL [Mass/Vol] 41 mg/dL High 5-40 [facility] [place] Comment on above: Order Comment: Order Date: 09/27/24Order Info: [id number] - CMPOrder Info: [id number] - LIPIDComments: non-fastingOrder Info: 6-3 - TSHnon-fasting Performed By: #### L 501.080 #### [facility] [place] [facility] [address] [place], [address] Triglyceride [Mass/Vol] 203 mg/dL High [facility] [place] Comment on above: Order Comment: Order Date: 09/27/24Order Info: [id number]- - CMPOrder Info: [id number] - LIPIDComments: non-fastingOrder Info: 6-3 - TSHnon-fasting Result Comment: The drugs N-Acetylcysteine and Metamizole may falsely depress this assay. Serum Triglycerides Reference Interval Normal <150 mg/dL Borderline high 150 - 199 mg/dL High 200 - 499 mg/dL Very High > or = 500 mg/dL Performed By: #### L 501.080 #### [facility] [address] [place], [place], [address] Microalb:Creat Ratio,Random URon 09-27-2024 Creatinine [Mass/Vol] 28.30 mg/dL Normal NO RAN GE EST. [facility] Comment on above: Order Comment: Order Date: 09/27/24Order Info: [id number] - MIACRE Performed By: #### L 501.080 #### [facility] [address] [place], [place], [address] MALB:CRE TNP Normal <30 mg/g CRE [facility] Comment on above: Order Comment: Order Date: 09/27/24Order Info: [id number] - MIACRE Performed By: #### L 501.080 #### [facility] [address] [place], [id number] MICROALBUMIN,UR < 5.0 Normal NO RANGE EST. [facility] Comment on above: Order Comment: Order Date: 09/27/24Order Info: [id number] - MIACRE Performed By: #### L 501.080 #### [facility] [address] [place], [place], [address] Thyroid Stim Hormone (TSH)on 09-27-2024 TSH 0.640 uIU/mL Normal 0.358-3.74 0 [facility] Comment on above: Order Comment: Order Date: 09/27/24Order Info: [id number] - CMPOrder Info: [id number] - LIPIDComments: non-fastingOrder Info: [id number] - TSHnon-fasting Performed By: #### L 501.080 #### [facility] [address] [place], [address] Gastric Emptying Studyon Gastric Emptying Study [facility] Imaging Services [address] [place] [place] [address] Gastric Emptying Study MR#: [id number] Acct: [id number] Name: QI PHILIPPE Rep #: [id number] : 1965 F 59 From: Jairo Mao PCP: Dr. Bret Gomez MD Status: REG CLI Study: Gastric Emptying Study Date of Exam: 08/12/24 Exam# [id number] Ordering Dr: Gumaro Sandhu DO [id number] CLINICAL: 59-year-old female with history of refractory [...] Signed: Jairo Busch DO at 8:40 EDT Reading Location ID and State: [facility] / [place] Tel , Service support , CC: Dr. Bret Gomez MD; Gumaro Sandhu DO Client Manager Large Law: Signed Normal [facility] Gastroenterology Visit Repor ton 08-04-2024 Gastroenterology Visit Report [facility] Gastroenterology [address] [place] [address] OFFICE VISIT Date of Service: 08/04/24 MR#: [id number] Acct: [id number] Name: JOSE MARTINQI Amparo Rep #: [id number] : 1965 Provider: Gumaro Sandhu DO Age/Sex: 59/F [place] [facility] [place]: Signed Intake Vital Signs 10/29/23 07:04 [...] 1 g PO TID ulcers #90 tabs 07/16/24 08/04/24 Rx PFSH Medical History (Updated 07/16/24 @ [...] second portion of the d uodenum. OV 08.04.24 pt reports constipation since starting sucralfate. Reports [...] stools, nause (more content not included)... Normal [facility] Bedside Glucoseon 07-16-2024 FINGERSTICK GLU 97 mg/dL Normal 74-106 [facility] Comment on above: Result Comment: CORIE ROMERO OF PATIENT CARE PER NURSING PROTOCOL Performed By: #### L 501.080 #### [facility] [address] [place], [place], [id number] EGD Reporton 07-16-2024 EGD Report [facility] Medical Records Department [address] [place] [address] EGD Report MR#: [id number] Acct: [id number] Name: QI PHILIPPE Rep #: [id number] : 1965 59 From: Gumaro Sandhu DO [...] pathology results. Procedure Code(s): --- Professional --- 58422, Esophagogastroduodenoscopy, flexible, transoral; with biopsy, single or multiple CPT copyright 2021 [employer]. All rights reserved. The codes documented in this report are preliminary and upon lead web developer review may be revised to meet current compliance requirements. Gumaro Sandhu DO 07/16/2024 1:28:24 PM This report has been signed electronically. Number of Addenda: 0 Note Initiated On: 07/16/2024 1:04 PM 07/16/24 1328 Date Gumaro Storey Signature: Date (if indicated) CC: Dr. Bret Gomez MD; Gumaro Sandhu DO Date Dictated: 07/16/24 1304 Date Transcribed: Client Manager Large Law: LINO Signed Normal [facility] H Pylori (initial)on H Pylori (initial) ------- Patient Age/Sex Location Account Attending Physician QI PHILIPPE 59/F EN [id number] Gumaro Sandhu DO Specimen: [id number] Received: 07/19/24 Status: LAKISHA Young Num: [id number] Spec Type: IMMUNO Subm Dr: Gumaro Sandhu DO PHYSICIAN INSTITUTION [place] [address] SPECIMEN INFORMATION: Tissue Source: A- Antrum biopsy Clinical Info: Hypergastrinemia, gastric ulcer, diverticula colon, GERD Specimen Number: [id number] CPT code: 23187 METHODOLOGY: Deparaffinized sections of prefer/formalin-fixed tissue or [...] developed and their performance characteristics determined by [facility]. They may not have been cleared or approved by the U.S. Food and Drug Administration. The FDA has determined that such clearance or approval is not necessary. The above immunohistochemical/dualISH markers are ordered and reviewed by the Pathologist. INTERPRETATION: A. Antrum, biopsy: Negative for Helicobacter pylori organisms. MIKE/ 07/20/2024 Signed (signature on file) Dr. Roque Tello MD 07/20/24 1212 Normal [facility] Comment on above: Performed By: #### L 499.0043 #### [facility] [address] [facility] [place], [address] MR/POSTOP.Antonia 07-16-2024 MR/POSTOP.[facility] Medical Records Department [address] [place] [address] Anesthesia Postop Eval I 07/16/24 1333 MR#: [id number] Acct: [id number] Name: QI PHILIPPE Amparo Rep #: [id number] : 1965 59 From: Pieter Scruggs PCP: Dr. Bret Gomez MD Status:REG SDC Y Race: C Location: [place] [address] Anesthesia: Postop Eval I Current Vital Signs [...] 1 completed: Yes 07/16/24 1335 Date Pieter Reedigntorsten Signature: Date CC: Signed Normal [facility] MR/[id number] 07-16-2024 MR/POSTOPAN2 [facility] Medical Records Department [address] [place] [address] Anesthesia Postop Eval II 07/16/24 1347 MR#: [id number] Acct: [id number] Name: QI PHILIPPE Rep #: [id number] : 1965 59 From: Olvin Biggs MD PCP: Dr. Bret Gomez MD Status[place] [facility] [place] Race: C Location: [place] [address] Anesthesia Postop Eval I Sum Postop Eval [...] Level: 0 nausea: No Vomiting: No 07/16/24 1347 Date Olvin Mendez Signature: Date CC: Signed Normal [facility] Special Stain Group Ion 06-25 Special Stain Group I --------- Patient Age/Sex Location Account Attending Physician QI PHILIPPE 59/F EN [id number] Gumaro Sandhu DO Specimen: [id number] Received: 07/16/24 Status: LAKISHA Young Num: [id number] Spec Type: EGD BIOPSY Subm Dr: Gumaro Sandhu DO HEADER OPERATION: EGD with biopsies PRE-OP DIAGNOSIS: [...] for Helicobacter pylori will be reported separately ([id number]). B. Alcian blue/PAS stain with matched control [...] specimen is totally submitted in one cassette. . 07/19/2024 TC:3 CPT:60147s3,32252 Patient Age/Sex Location Account Attending Physician QI PHILIPPE 59/F EN [id number] Gumaro Sandhu DO Signed (signature on file) Dr. Roque Tello MD 07/20/241121 Normal [facility] Comment on above: Performed By: #### P SSI ####[facility] [address] [place], [address] Absolute lymphocyte countOrd ered By: Too Bingham on 03-16-2024 Lymphocytes Auto (Unsp spec) [#/Vol] 1.92 10*3/uL 0.83-4.51 [facility] Automated lymphocyte count a s percentage of total leukocytesOrdered By: Too Bingham on 03-16-2024 Lymphocytes/100 WBC Auto (Unsp spec) 31.1 % 19-41 [facility] Basophil percentageOrdered B y: Too Bingham on 03-16-2024 Basophils/100 WBC (Bld) 0.3 % 0-1 [facility] Chloride [Moles/Vol] 102 mmol/L 98-107 [facility] Eosinophils/100 WBC (Bld) 0.6 % 0-5 [facility] Glucose [Mass/Vol] 110 mg/dL 74-106 [facility] Comment on above: Fasting Glucose resu lt from 100 to 125 mg/dL suggests IMPAIRED HOMEOSTASIS per A.D.A. criteria. Hemoglobin (Bld) [Mass/Vol] 14.0 g/dL 12.0-15.0 [facility] Monocytes/100 WBC (Bld) 6.5 % 0-10 [facility] Neutrophils (Bld) [#/Vol] 3.8 10*3/uL 2.0-7.7 [facility] Neutrophils/100 WBC (Bld) 61.3 % 47-70 [facility] Potassium [Moles/Vol] 3.6 mmol/L 3.5-5.1 [facility] Sodium [Moles/Vol] 136 mmol/L 136-145 [facility] WBC (Bld) [#/Vol] 6.2 10*3/uL 4.4-11.0 [facility] Determination of erythrocyte mean corpuscular volume (MCV)Ordered By: Too Bingham on 03-16-2024 MCV (RBC) [Entitic vol] 86.6 fL 81-99 [facility] Erythrocyte distribution wid th ratioOrdered By: Too Bingham on 03-16-2024 Erythrocyte distribution width (RBC) [Ratio] 11.9 % 11.6-14.6 [facility] Erythrocyte distribution wid th standard deviationOrdered By: Too Bingham on 03-16-2024 Erythrocyte distribution width (RBC) [Entitic vol] 37.8 fL 35.1-43.9 [facility] Hematocrit Auto (Bld) [Volum e fraction]Ordered By: Too Bingham on 03-16-2024 Hematocrit (Bld) [Volume fraction] 42.1 % 37-47 [facility] Immature granulocytes/100 WB C Auto (Bld)Ordered By: Too Bingham on 03-16-2024 Immature granulocytes/100 WBC (Bld) 0.200 % 0.0-0.9 [facility] Comment on above: IG% - Immature Granu locytes (promyelocytes, myelocytes and metamyelocytes) > 1% indicates that a LEFT SHIFT is Present. Laboratory - Chemistry and C hemistry - challengeOrdered By: Too Bingham on 03-16-2024 CO2 [Moles/Vol] 29.0 mmol/L 21.0-32.0 [facility] Urea nitrogen/Creatinine [Mass ratio] 22.4 mg/mg 10-20 [facility] - Hematology and Cell countsOrdered By: Too Bingham on 03-16-2024 MCH (RBC) [Entitic mass] 28.8 pg 27.0-32.0 [facility] MCHC (RBC) [Mass/Vol] 33.3 g/dL 32-36 [facility] Nucleated RBC/100 WBC (Bld) [Ratio] 0 % 0-5 [facility] Platelet mean volume (Bld) [Entitic vol] 10.4 fL 6.2-12.0 [facility] Platelets (Bld) [#/Vol] 346 10*3/uL 150-450 [facility] No Panel InformationOrdered By: Too Bingham on 03-16-2024 Estimated GFR (MDRD) Amer 107 mL/min >60 [facility] Comment on above: GFR Calc Estimated GFR (MDRD) Non-Af Amer 88 mL/min >60 [facility] Comment on above: Non- GFR Calc RBC Auto (Bld) [#/Vol]Ordere d By: Too Bingham on 03-16-2024 RBC (Bld) [#/Vol] 4.86 10*6/uL 4.2-5.4 [facility] Serum or plasma calcium kassandra urement (mass/volume)Ordered By: Too Bingham on 03-16-2024 Calcium [Mass/Vol] 9.4 mg/dL 8.5-10.1 [facility] Serum or plasma creatinine m easurement (mass/volume)Ordered By: Too Bingham on 03-16-2024 Creatinine [Mass/Vol] 0.72 mg/dL 0.55-1.02 [facility] Comment on above: The validity of the calculated GFR & GFRAA in patients over 70 years has not been determined. Clinical correlation is essential. Serum or plasma urea nitroge n measurement (mass/volume)Ordered By: Too Bingham on 03-16-2024 Urea nitrogen [Mass/Vol] 16 mg/dL 7-18 [facility] Thin prep Papanicolaou smear with manual screeningOrdered By: Too Bingham on 03-16-2024 Thin prep Papanicolaou smear with manual screening 5 5-15 [facility] Whole blood hemoglobin A1c/t otal hemoglobin ratio (mass fraction)Ordered By: Too Bingham on 03-16-2024 HbA1c (Bld) [Mass fraction] 6.0 % 3.8-5.6 [facility] Comment on above: Normal < 5.7 % Predi abetic 5.7 - 6.4 % Diabetic >or= 6.5 % Please note range changes. Glucose Glucometer (BldC) [M ass/Vol]Ordered By: Gumaro Sandhu on 10-29-2023 Glucose [Mass/Vol] 115 mg/dL 74-106 [facility] Comment on above: MANAGEMENT OF PATIEN T CARE PER NURSING PROTOCOL Basophil percentageOrdered B y: Bret Gomez on 09-30-2023 Bilirubin [Mass/Vol] 0.40 mg/dL 0.20-1.00 [facility] Comment on above: For patients on eltr ombopag therapy, use of Dimension [place] TBIL is not recommended. Chloride [Moles/Vol] 107 mmol/L 98-107 [facility] Cholesterol [Mass/Vol] 203 mg/dL <200 [facility] Comment on above: <200 mg/dL Desirable 200-240 mg/dL Borderline >240 mg/dL High Risk Glucose [Mass/Vol] 126 mg/dL 74-106 [facility] Comment on above: Fasting Glucose resu lt greater than or equal to 126 mg/dL suggests DIABETES MELLITUS per A.D.A. criteria. Potassium [Moles/Vol] 3.8 mmol/L 3.5-5.1 [facility] Protein [Mass/Vol] 7.2 g/dL 6.4-8.2 [facility] Sodium [Moles/Vol] 139 mmol/L 136-145 [facility] Triglyceride [Mass/Vol] 143 mg/dL <199 [facility] Comment on above: The drugs N-Acetylcy steine and Metamizole may falsely depress this assay.Serum Triglycerides Reference Interval Normal <150 mg/dL Borderline high 150 - 199 mg/dL High 200 - 499 mg/dL Very High > or = 500 mg/dL Laboratory - Chemistry and C hemistry - challengeOrdered By: Bret Gomez on 09-30-2023 ALP [Catalytic activity/Vol] 65 U/L 45-117 [facility] ALT [Catalytic activity/Vol] 33 U/L 13-56 [facility] CO2 [Moles/Vol] 25.0 mmol/L 21.0-32.0 [facility] Globulin (S) [Mass/Vol] 3.4 g/dL 2.2-4.2 [facility] Urea nitrogen/Creatinine [Mass ratio] 28.2 mg/mg 10-20 [facility] No Panel InformationOrdered By: Bret Gomez on 09-30-2023 Urine Microalbumin/Creatinin e Ratio 5.1 mg/g CRE <30 [facility] Estimated GFR (MDRD) Amer 115 mL/min >60 [facility] Comment on above: GFR Calc Estimated GFR (MDRD) Non-Af Amer 95 mL/min >60 [facility] Comment on above: Non- GFR Calc Serum or plasma albumin kassandra urement (mass/volume)Ordered By: Bret Gomez on 09-30-2023 Albumin [Mass/Vol] 3.8 g/dL 3.2-5.0 [facility] Serum or plasma albumin/glob ulin mass ratioOrdered By: Bret Gomez on 09-30-2023 Albumin/Globulin [Mass ratio] 1.1 {ratio} 0.9-2.4 [facility] Serum or plasma calcium kassandra urement (mass/volume)Ordered By: Bret Gomez on 09-30-2023 Calcium [Mass/Vol] 9.0 mg/dL 8.5-10.1 [facility] Serum or plasma cholesterol in HDL measurement (mass/volume)Ordered By: Bret Gomez on 09-30-2023 Cholesterol in HDL [Mass/Vol] 46 mg/dL >40 [facility] Comment on above: The drugs N-Acetylcy steine and Metamizole may falsely depress this assay. Reference Range HDL <40 mg/dL Low HDL Cholesterol HDL >or= 60 mg/dL High HDL Cholesterol Serum or plasma cholesterol in VLDL measurement (mass/volume)Ordered By: Bret Gomez on 09-30-2023 Cholesterol in VLDL [Mass/Vol] 29 mg/dL 5-40 [facility] Serum or plasma creatinine m easurement (mass/volume)Ordered By: Bret Gomez on 09-30-2023 Creatinine [Mass/Vol] 0.67 mg/dL 0.55-1.02 [facility] Comment on above: The validity of the calculated GFR & GFRAA in patients over 70 years has not been determined. Clinical correlation is essential. Serum or plasma low density lipoprotein (LDL) cholesterol measurement (mass/volume)Ordered By: Bret Gomez on 09-30-2023 Cholesterol in LDL [Mass/Vol] 128 mg/dL 0-130 [facility] Serum or plasma urea nitroge n measurement (mass/volume)Ordered By: Bret Gomez on 09-30-2023 Urea nitrogen [Mass/Vol] 19 mg/dL 7-18 [facility] Thin prep Papanicolaou smear with manual screeningOrdered By: Bret Gomez on 09-30-2023 Thin prep Papanicolaou smear with manual screening 13.6 mg/L NO RANGE EST. [facility] Thin prep Papanicolaou smear with manual screening 19 U/L 15-37 [facility] Thin prep Papanicolaou smear with manual screening 7 5-15 [facility] Urine creatinine measurement (mass/volume)Ordered By: Bret Gomez on 09-30-2023 Creatinine (U) [Mass/Vol] 266.00 mg/dL NO RANGE EST. [facility] Whole blood hemoglobin A1c/t otal hemoglobin ratio (mass fraction)Ordered By: Bret Gomez on 09-30-2023 HbA1c (Bld) [Mass fraction] 6.1 % 3.8-5.6 [facility] Comment on above: Normal < 5.7 % Predi abetic 5.7 - 6.4 % Diabetic >or= 6.5 % Please note range changes. No Panel InformationOrdered By: Gumaro Sandhu on 09-01-2023 Miscellaneous Test See comment [facility] Comment on above: TEST RESULT LIMITSCh romogranin A, 584.9 High ng/mL 0.0-101.8 Chromogranin A performed by [employer] methodology Values obtained with different assay methods or kits cannot be used interchangeably. TESTING PERFORMED AT [facility]. ORIGINAL REPORT ON FILE IN LAB CONTAINS ADDITIONAL TEST SITE INFORMATION. Serum or plasma gastrin kassandra urement (mass/volume)Ordered By: Gumaro Sandhu on 09-01-2023 Gastrin [Mass/Vol] 329 pg/mL 0-115 [facility] Comment on above: Siemens Immulite 200 0 Immunochemiluminometric assay (ICMA)Values obtained with different assay methods or kits cannotbe used interchangeably. Results cannot be interpreted asabsolute evidence of the presence or absence of malignantdisease.Performed at: [address] [id number] Director: Jr Gustafson MD, Phone: [phone] Absolute lymphocyte countOrd ered By: Dr. Gomez on 03-19-2023 Lymphocytes Auto (Unsp spec) [#/Vol] 1.98 10*3/uL 0.83-4.51 [facility] Basophil percentageOrdered B y: Dr. Gomez on 03-19-2023 Basophils/100 WBC (Bld) 0.5 % 0-1 [facility] Bilirubin [Mass/Vol] 0.40 mg/dL 0.20-1.00 [facility] Comment on above: For patients on eltr ombopag therapy, use of Dimension [place] TBIL is not recommended. Chloride [Moles/Vol] 107 mmol/L 98-107 [facility] Cholesterol [Mass/Vol] 188 mg/dL <200 [facility] Comment on above: <200 mg/dL Desirable 200-240 mg/dL Borderline >240 mg/dL High Risk Eosinophils/100 WBC (Bld) 2.9 % 0-5 [facility] Glucose [Mass/Vol] 108 mg/dL 74-106 [facility] Comment on above: Fasting Glucose resu lt from 100 to 125 mg/dL suggests IMPAIRED HOMEOSTASIS per A.D.A. criteria. Neutrophils (Bld) [#/Vol] 3.3 10*3/uL 2.0-7.7 [facility] Neutrophils/100 WBC (Bld) 55.4 % 47-70 [facility] Potassium [Moles/Vol] 4.0 mmol/L 3.5-5.1 [facility] Protein [Mass/Vol] 7.3 g/dL 6.4-8.2 [facility] Sodium [Moles/Vol] 135 mmol/L 136-145 [facility] Triglyceride [Mass/Vol] 147 mg/dL <199 [facility] Comment on above: The drugs N-Acetylcy steine and Metamizole may falsely depress this assay.Serum Triglycerides Reference Interval Normal <150 mg/dL Borderline high 150 - 199 mg/dL High 200 - 499 mg/dL Very High > or = 500 mg/dL WBC (Bld) [#/Vol] 5.9 10*3/uL 4.4-11.0 [facility] Blood erythrocytes count (nu mber/volume)Ordered By: Dr. Gomez on 03-19-2023 RBC (Bld) [#/Vol] 4.82 10*6/uL 4.2-5.[address] [facility] Blood hemoglobin measurement (mass/volume)Ordered By: Dr. Gomez on 03-19-2023 Hemoglobin (Bld) [Mass/Vol] 13.8 g/dL 12.0-15.0 [facility] Blood lymphocytes/100 leukoc ytesOrdered By: Dr. Gomez on 03-19-2023 Lymphocytes/100 WBC (Bld) 33.8 % 19-41 [facility] Blood monocytes/100 leukocyt esOrdered By: Dr. Gomez on 03-19-2023 Monocytes/100 WBC (Bld) 7.2 % 0-10 [facility] Blood platelet mean volumeOr dered By: Dr. Gomez on 03-19-2023 Platelet mean volume (Bld) [Entitic vol] 10.6 fL 6.2-12.0 [facility] Determination of erythrocyte mean corpuscular volume (MCV)Ordered By: Dr. Gomez on 03-19-2023 MCV (RBC) [Entitic vol] 89.8 fL 81-99 [facility] Hematocrit Auto (Bld) [Volum e fraction]Ordered By: Dr. Gomez on 03-19-2023 Hematocrit (Bld) [Volume fraction] 43.3 % 37-47 [facility] - Chemistry and C hemistry - challengeOrdered By: Dr. Gomez on 03-19-2023 ALP [Catalytic activity/Vol] 62 U/L 45-117 [facility] ALT [Catalytic activity/Vol] 52 U/L 13-56 [facility] CO2 [Moles/Vol] 24.0 mmol/L 21.0-32.0 [facility] Globulin (S) [Mass/Vol] 3.3 g/dL 2.2-4.2 [facility] Urea nitrogen/Creatinine [Mass ratio] 23.4 mg/mg 10-20 [facility] - Hematology and Cell countsOrdered By: Dr. Gomez on 03-19-2023 Erythrocyte distribution width (RBC) [Entitic vol] 38.9 fL 35.1-43.9 [facility] Erythrocyte distribution width (RBC) [Ratio] 11.9 % 11.6-14.6 [facility] Immature granulocytes/100 WBC (Bld) 0.200 % 0.0-0.9 [facility] Comment on above: IG% - Immature Granu locytes (promyelocytes, myelocytes and metamyelocytes) > 1% indicates that a LEFT SHIFT is Present. MCH (RBC) [Entitic mass] 28.6 pg 27.0-32.0 [facility] Nucleated RBC/100 WBC (Bld) [Ratio] 0 % 0-5 [facility] MCHC Auto (RBC) [Mass/Vol]Or dered By: Dr. Gomez on 03-19-2023 MCHC (RBC) [Mass/Vol] 31.9 g/dL 32-36 [facility] No Panel InformationOrdered By: Dr. Gomez on 03-19-2023 Estimated GFR (MDRD) Amer 105 mL/min >60 [facility] Comment on above: GFR Calc Estimated GFR (MDRD) Non-Af Amer 87 mL/min >60 [facility] Comment on above: Non- GFR Calc Urine Microalbumin/Creatinin e Ratio 5.6 mg/g CRE <30 [facility] Platelets bldOrdered By: Dr. Gomez on 03-19-2023 Platelets (Bld) [#/Vol] 282 10*3/uL 150-450 [facility] Serum or plasma albumin kassandra urement (mass/volume)Ordered By: Dr. Gomez on 03-19-2023 Albumin [Mass/Vol] 4.0 g/dL 3.2-5.0 [facility] Serum or plasma albumin/glob ulin mass ratioOrdered By: Dr. Gomez on 03-19-2023 Albumin/Globulin [Mass ratio] 1.2 {ratio} 0.9-2.4 [facility] Serum or plasma calcium kassandra urement (mass/volume)Ordered By: Dr. Gomez on 03-19-2023 Calcium [Mass/Vol] 9.1 mg/dL 8.5-10.1 [facility] Serum or plasma cholesterol in HDL measurement (mass/volume)Ordered By: Dr. Gomez on 03-19-2023 Cholesterol in HDL [Mass/Vol] 49 mg/dL >40 [facility] Comment on above: The drugs N-Acetylcy steine and Metamizole may falsely depress this assay. Reference Range HDL <40 mg/dL Low HDL Cholesterol HDL >or= 60 mg/dL High HDL Cholesterol Serum or plasma cholesterol in VLDL measurement (mass/volume)Ordered By: Dr. Gomez on 03-19-2023 Cholesterol in VLDL [Mass/Vol] 29 mg/dL 5-40 [facility] Serum or plasma creatinine m easurement (mass/volume)Ordered By: Dr. Gomez on 03-19-2023 Creatinine [Mass/Vol] 0.73 mg/dL 0.55-1.02 [facility] Comment on above: The validity of the calculated GFR & GFRAA in patients over 70 years has not been determined. Clinical correlation is essential. Serum or plasma low density lipoprotein (LDL) cholesterol measurement (mass/volume)Ordered By: Dr. Gomez on 03-19-2023 Cholesterol in LDL [Mass/Vol] 110 mg/dL 0-130 [facility] Serum or plasma urea nitroge n measurement (mass/volume)Ordered By: Dr. Gomez on 03-19-2023 Urea nitrogen [Mass/Vol] 17 mg/dL 7-18 [facility] Thin prep Papanicolaou smear with manual screeningOrdered By: Dr. Gomez on 03-19-2023 Thin prep Papanicolaou smear with manual screening 31 U/L 15-37 [facility] Thin prep Papanicolaou smear with manual screening 4 5-15 [facility] Thin prep Papanicolaou smear with manual screening 5.9 mg/L NO RANGE EST. [facility] Urine creatinine measurement (mass/volume)Ordered By: Dr. Gomez on 03-19-2023 Creatinine (U) [Mass/Vol] 106.00 mg/dL NO RANGE EST. [facility] Basophil percentageon 2021 Bilirubin [Mass/Vol] 0.80 mg/dL 0.20-1.00 [facility] Work Phone: Comment on above: For patients on eltr ombopag therapy, use of Dimension [place] TBIL is not recommended. Chloride [Moles/Vol] 103 mmol/L 98-107 [facility] Work Phone: Cholesterol [Mass/Vol] 240 mg/dL <200 [facility] Work Phone: Comment on above: <200 mg/dL Desirable 200-240 mg/dL Borderline >240 mg/dL High Risk Glucose [Mass/Vol] 104 mg/dL 74-106 [facility] Work Phone: Comment on above: Fasting Glucose resu lt from 100 to 125 mg/dL suggests IMPAIRED HOMEOSTASIS per A.D.A. criteria. Potassium [Moles/Vol] 3.4 mmol/L 3.5-5.1 [facility] Work Phone: Protein [Mass/Vol] 8.2 g/dL 6.4-8.2 [facility] Work Phone: Sodium [Moles/Vol] 137 mmol/L 136-145 [facility] Work Phone: Triglyceride [Mass/Vol] 171 mg/dL <199 [facility] Work Phone: Comment on above: The drugs N-Acetylcy steine and Metamizole may falsely depress this assay.Serum Triglycerides Reference Interval Normal <150 mg/dL Borderline high 150 - 199 mg/dL High 200 - 499 mg/dL Very High > or = 500 mg/dL Laboratory - Chemistry and C hemistry - challengeon 09-20-2022 ALP [Catalytic activity/Vol] 82 U/L 45-117 [facility] Work Phone: ALT [Catalytic activity/Vol] 53 U/L 13-56 [facility] Work Phone: CO2 [Moles/Vol] 25.0 mmol/L 21.0-32.0 [facility] Work Phone: Globulin (S) [Mass/Vol] 3.7 g/dL 2.2-4.2 [facility] Work Phone: Urea nitrogen/Creatinine [Mass ratio] 22.3 mg/mg 10-20 [facility] Work Phone: No Panel Informationon 09-20 Estimated GFR (MDRD) Amer 107 mL/min >60 [facility] Work Phone: Comment on above: GFR Calc Estimated GFR (MDRD) Non-Af Amer 88 mL/min >60 [facility] Work Phone: Comment on above: Non- GFR Calc Serum or plasma albumin kassandra urement (mass/volume)on 09-20-2022 Albumin [Mass/Vol] 4.5 g/dL 3.2-5.0 [facility] Work Phone: Serum or plasma albumin/glob ulin mass ratioon 09-20-2022 Albumin/Globulin [Mass ratio] 1.2 {ratio} 0.9-2.4 [facility] Work Phone: Serum or plasma calcium kassandar urement (mass/volume)on 09-20-2022 Calcium [Mass/Vol] 9.7 mg/dL 8.5-10.1 [facility] Work Phone: Serum or plasma cholesterol in HDL measurement (mass/volume)on 09-20-2022 Cholesterol in HDL [Mass/Vol] 53 mg/dL >40 [facility] Work Phone: Comment on above: The drugs N-Acetylcy steine and Metamizole may falsely depress this assay. Reference Range HDL <40 mg/dL Low HDL Cholesterol HDL >or= 60 mg/dL High HDL Cholesterol Serum or plasma cholesterol in VLDL measurement (mass/volume)on 09-20-2022 Cholesterol in VLDL [Mass/Vol] 34 mg/dL 5-40 [facility] Work Phone: Serum or plasma creatinine m easurement (mass/volume)on 09-20-2022 Creatinine [Mass/Vol] 0.72 mg/dL 0.55-1.02 [facility] Work Phone: Comment on above: The validity of the calculated GFR & GFRAA in patients over 70 years has not been determined. Clinical correlation is essential. Serum or plasma low density lipoprotein (LDL) cholesterol measurement (mass/volume)on 09-20-2022 Cholesterol in LDL [Mass/Vol] 153 mg/dL 0-130 [facility] Work Phone: Serum or plasma urea nitroge n measurement (mass/volume)on 09-20-2022 Urea nitrogen [Mass/Vol] 16 mg/dL 7-18 [facility] Work Phone: Thin prep Papanicolaou smear with manual screeningon 09-20-2022 Thin prep Papanicolaou smear with manual screening 29 U/L 15-37 [facility] Work Phone: Thin prep Papanicolaou smear with manual screening 9 5-15 [facility] Work Phone: Whole blood hemoglobin A1c/t otal hemoglobin ratio (mass fraction)on 09-20-2022 HbA1c (Bld) [Mass fraction] 6.2 % 3.8-5.6 [facility] Work Phone: Comment on above: Normal < 5.7 % Predi abetic 5.7 - 6.4 % Diabetic >or= 6.5 % Please note range changes. Absolute lymphocyte counton 05-22-2022 Lymphocytes Auto (Unsp spec) [#/Vol] 1.64 10*3/uL 0.83-4.51 [facility] Work Phone: Basophil percentageon 2021 Basophils/100 WBC (Bld) 0.3 % 0-1 [facility] Work Phone: Bilirubin [Mass/Vol] 0.50 mg/dL 0.20-1.00 [facility] Work Phone: [phone] Comment on above: For patients on eltr ombopag therapy, use of Dimension [place] TBIL is not recommended. Chloride [Moles/Vol] 105 mmol/L 98-107 [facility] [place] Work Phone: Eosinophils/100 WBC (Bld) 1.0 % 0-5 [facility] Work Phone: [phone] Glucose [Mass/Vol] 122 mg/dL 74-106 [facility] Work Phone: Comment on above: Fasting Glucose resu lt from 100 to 125 mg/dL suggests IMPAIRED HOMEOSTASIS per A.D.A. criteria. Neutrophils (Bld) [#/Vol] 4.2 10*3/uL 2.0-7.7 [facility] Work Phone: [phone] Neutrophils/100 WBC (Bld) 66.0 % 47-70 [facility] Work Phone: Potassium [Moles/Vol] 3.7 mmol/L 3.5-5.1 [facility] Work Phone: Protein [Mass/Vol] 7.7 g/dL 6.4-8.2 [facility] Work Phone: Sodium [Moles/Vol] 139 mmol/L 136-145 [facility] Work Phone: WBC (Bld) [#/Vol] 6.3 10*3/uL 4.4-11.0 [facility] Work Phone: Blood erythrocytes count (nu mber/volume)on 05-22-2022 RBC (Bld) [#/Vol] 4.94 10*6/uL 4.2-5.[address] [facility] Work Phone: Blood hemoglobin measurement (mass/volume)on 05-22-2022 Hemoglobin (Bld) [Mass/Vol] 14.3 g/dL 12.0-15.0 [facility] Work Phone: Blood lymphocytes/100 leukoc yteson 05-22-2022 Lymphocytes/100 WBC (Bld) 26.0 % 19-41 [facility] Work Phone: Blood monocytes/100 leukocyt eson 05-22-2022 Monocytes/100 WBC (Bld) 6.5 % 0-10 [facility] Work Phone: Blood platelet mean volumeon 05-22-2022 Platelet mean volume (Bld) [Entitic vol] 10.2 fL 6.2-12.0 [facility] Work Phone: Determination of erythrocyte mean corpuscular volume (MCV)on 05-22-2022 MCV (RBC) [Entitic vol] 87.9 fL 81-99 [facility] Work Phone: Hematocrit Auto (Bld) [Volum e fraction]on 05-22-2022 Hematocrit (Bld) [Volume fraction] 43.4 % 37-47 [facility] Work Phone: Laboratory - Chemistry and C hemistry - challengeon 05-22-2022 ALP [Catalytic activity/Vol] 79 U/L 45-117 [facility] Work Phone: ALT [Catalytic activity/Vol] 38 U/L 13-56 [facility] Work Phone: CO2 [Moles/Vol] 28.0 mmol/L 21.0-32.0 [facility] Work Phone: Globulin (S) [Mass/Vol] 3.4 g/dL 2.2-4.2 [facility] Work Phone: Urea nitrogen/Creatinine [Mass ratio] 19.6 mg/mg 10-20 [facility] Work Phone: Laboratory - Hematology and Cell countson 05-22-2022 Erythrocyte distribution width (RBC) [Entitic vol] 38.6 fL 35.1-43.9 [facility] Work Phone: Erythrocyte distribution width (RBC) [Ratio] 12.0 % 11.6-14.6 [facility] Work Phone: Immature granulocytes/100 WBC (Bld) 0.200 % 0.0-0.9 [facility] Work Phone: Comment on above: IG% - Immature Granu locytes (promyelocytes, myelocytes and metamyelocytes) > 1% indicates that a LEFT SHIFT is Present. MCH (RBC) [Entitic mass] 28.9 pg 27.0-32.0 [facility] Work Phone: Nucleated RBC/100 WBC (Bld) [Ratio] 0 % 0-5 [facility] Work Phone: MCHC Auto (RBC) [Mass/Vol]on 05-22-2022 MCHC (RBC) [Mass/Vol] 32.9 g/dL 32-36 [facility] Work Phone: No Panel Informationon 05-22 Estimated GFR (MDRD) Amer 99 mL/min >60 [facility] Work Phone: Comment on above: GFR Calc Estimated GFR (MDRD) Non-Af Amer 82 mL/min >60 [facility] Work Phone: Comment on above: Non- GFR Calc Miscellaneous Test [facility]: Comment on above: TEST RESULT LIMITSCh romogranin A, 459.2 High ng/mL 0.0-101.8Chromogranin A performed by [employer] KRYPTOR methodologyValues obtained with different assay methods or kits cannot be used interchangeably. TESTING PERFORMED AT [facility]. ORIGINAL REPORT ON FILE IN LAB CONTAINS ADDITIONAL TEST SITE INFORMATION. Parathyroid Hormone (Intact) 41.8 pg/mL 18.4-80.1 [facility] Work Phone: Thyroid Stimulating Hormone (TSH) 0.87 uIU/mL 0.358-3.74 [facility] Work Phone: Platelets bldon 05-22-2022 Platelets (Bld) [#/Vol] 305 10*3/uL 150-450 [facility] Work Phone: Serum or plasma albumin kassandra urement (mass/volume)on 05-22-2022 Albumin [Mass/Vol] 4.3 g/dL 3.2-5.0 [facility] Work Phone: Serum or plasma albumin/glob ulin mass ratioon 05-22-2022 Albumin/Globulin [Mass ratio] 1.3 {ratio} 0.9-2.4 [facility] Work Phone: Serum or plasma calcium kassandra urement (mass/volume)on 05-22-2022 Calcium [Mass/Vol] 9.3 mg/dL 8.5-10.1 [facility] Work Phone: Serum or plasma creatinine m easurement (mass/volume)on 05-22-2022 Creatinine [Mass/Vol] 0.76 mg/dL 0.55-1.02 [facility] Work Phone: Comment on above: The validity of the calculated GFR & GFRAA in patients over 70 years has not been determined. Clinical correlation is essential. Serum or plasma prolactin me asurement (mass/volume)on 05-22-2022 Prolactin [Mass/Vol] 5.6 ng/mL [facility] Work Phone: [phone] Comment on above: NORMAL REFERENCE RAN GES FEMALE NON- 2.2 - 30.3 ng/mL 8.1 - 347.6 ng/mL POST-MENOPAUSAL 0.7 - 31.5 ng/mL MALE 2.5 - 17.4 ng/mL Serum or plasma urea nitroge n measurement (mass/volume)on 05-22-2022 Urea nitrogen [Mass/Vol] 15 mg/dL 7-18 [facility] Work Phone: Thin prep Papanicolaou smear with manual screeningon 05-22-2022 Thin prep Papanicolaou smear with manual screening 23 U/L 15-37 [facility] Work Phone: Thin prep Papanicolaou smear with manual screening 6 5-15 [facility] Work Phone: Serum or plasma gastrin kassandra urement (mass/volume)on 05-15-2022 Gastrin [Mass/Vol] 929 pg/mL 0-115 [facility] Work Phone: Comment on above: Siemens Immulite 200 0 Immunochemiluminometric assay (ICMA)Values obtained with different assay methods or kits cannotbe used interchangeably. Results cannot be interpreted asabsolute evidence of the presence or absence of malignantdisease.Performed at: [address] [id number] Director: Jr Gustafson MD, Phone: [phone] Glucose Glucometer (BldC) [M ass/Vol]on 05-08-2022 Glucose [Mass/Vol] 106 mg/dL 74-106 [facility] Work Phone: Comment on above: MANAGEMENT OF PATIEN T CARE PER NURSING PROTOCOL Absolute lymphocyte counton 01-25-2022 Lymphocytes Auto (Unsp spec) [#/Vol] 1.70 10*3/uL 0.83-4.51 [facility] Work Phone: Basophil percentageon 2021 Basophil percentage 0-5 SEEN /hpf 0-5 [facility] Work Phone: Basophils/100 WBC (Bld) 0.6 % 0-1 [facility] Work Phone: Bilirubin [Mass/Vol] 0.50 mg/dL 0.20-1.00 [facility] Work Phone: Comment on above: For patients on eltr ombopag therapy, use of Dimension [place] TBIL is not recommended. Chloride [Moles/Vol] 107 mmol/L 98-107 [facility] Work Phone: Eosinophils/100 WBC (Bld) 1.9 % 0-5 [facility] Work Phone: Glucose [Mass/Vol] 106 mg/dL 74-106 [facility] Work Phone: Comment on above: Fasting Glucose resu lt from 100 to 125 mg/dL suggests IMPAIRED HOMEOSTASIS per A.D.A. criteria. Neutrophils (Bld) [#/Vol] 4.0 10*3/uL 2.0-7.7 [facility] Work Phone: [phone] Neutrophils/100 WBC (Bld) 64.2 % 47-70 [facility] Work Phone: Potassium [Moles/Vol] 4.0 mmol/L 3.5-5.1 [facility] Work Phone: Protein [Mass/Vol] 7.8 g/dL 6.4-8.2 [facility] Work Phone: Sodium [Moles/Vol] 138 mmol/L 136-145 [facility] Work Phone: [phone] WBC (Bld) [#/Vol] 6.2 10*3/uL 4.4-11.0 [facility] Work Phone: Bilirubin Test strip Ql (U)o n 01-25-2022 Bilirubin Ql (U) Negative Negative [facility] Work Phone: Blood erythrocytes count (nu mber/volume)on 01-25-2022 RBC (Bld) [#/Vol] 5.12 10*6/uL 4.2-5.[address] [facility] Work Phone: Blood hemoglobin measurement (mass/volume)on 01-25-2022 Hemoglobin (Bld) [Mass/Vol] 14.9 g/dL 12.0-15.0 [facility] Work Phone: Blood lymphocytes/100 leukoc yteson 01-25-2022 Lymphocytes/100 WBC (Bld) 27.6 % 19-41 [facility] Work Phone: Blood monocytes/100 leukocyt eson 01-25-2022 Monocytes/100 WBC (Bld) 5.5 % 0-10 [facility] Work Phone: Blood platelet mean volumeon 01-25-2022 Platelet mean volume (Bld) [Entitic vol] 10.1 fL 6.2-12.0 [facility] Work Phone: Determination of erythrocyte mean corpuscular volume (MCV)on 01-25-2022 MCV (RBC) [Entitic vol] 86.9 fL 81-99 [facility] Work Phone: Hematocrit Auto (Bld) [Volum e fraction]on 01-25-2022 Hematocrit (Bld) [Volume fraction] 44.5 % 37-47 [facility] Work Phone: Ketones Test strip Ql (U)on 01-25-2022 Ketones Ql (U) Negative Negative [facility] Work Phone: Laboratory - Chemistry and C hemistry - challengeon 01-25-2022 ALP [Catalytic activity/Vol] 88 U/L 45-117 [facility] Work Phone: ALT [Catalytic activity/Vol] 81 U/L 13-56 [facility] Work Phone: CO2 [Moles/Vol] 27.0 mmol/L 21.0-32.0 [facility] Work Phone: Globulin (S) [Mass/Vol] 3.6 g/dL 2.2-4.2 [facility] Work Phone: Lipase [Catalytic activity/Vol] 141 U/L 73-393 [facility] Work Phone: Urea nitrogen/Creatinine [Mass ratio] 19.9 mg/mg 10-20 [facility] Work Phone: Laboratory - Hematology and Cell countson 01-25-2022 Erythrocyte distribution width (RBC) [Entitic vol] 38.0 fL 35.1-43.9 [facility] Work Phone: Erythrocyte distribution width (RBC) [Ratio] 11.9 % 11.6-14.6 [facility] Work Phone: Immature granulocytes/100 WBC (Bld) 0.200 % 0.0-0.9 [facility] Work Phone: Comment on above: IG% - Immature Granu locytes (promyelocytes, myelocytes and metamyelocytes) > 1% indicates that a LEFT SHIFT is Present. MCH (RBC) [Entitic mass] 29.1 pg 27.0-32.0 [facility] Work Phone: Nucleated RBC/100 WBC (Bld) [Ratio] 0 % 0-5 [facility] Work Phone: MCHC Auto (RBC) [Mass/Vol]on 01-25-2022 MCHC (RBC) [Mass/Vol] 33.5 g/dL 32-36 [facility] Work Phone: Mucus LM Ql (Urine sed)on Mucus Ql (Urine sed) 0 SEEN /hpf [facility] Work Phone: Nitrite Test strip Ql (U)on 01-25-2022 Nitrite Ql (U) Negative Negative [facility] Work Phone: No Panel Informationon 01-25 Estimated Creatinine Clearance Calc 73.61 ml/min [facility] Work Phone: Estimated GFR (MDRD) Amer 87 mL/min >60 [facility] Work Phone: Comment on above: GFR Calc Estimated GFR (MDRD) Non-Af Amer 72 mL/min >60 [facility] Work Phone: Comment on above: Non- GFR Calc Platelets bldon 01-25-2022 Platelets (Bld) [#/Vol] 302 10*3/uL 150-450 [facility] Work Phone: Protein Test strip Ql (U)on 01-25-2022 Protein Ql (U) Negative Negative [facility] Work Phone: Serum or plasma albumin kassandra urement (mass/volume)on 01-25-2022 Albumin [Mass/Vol] 4.2 g/dL 3.2-5.0 [facility] Work Phone: Serum or plasma albumin/glob ulin mass ratioon 01-25-2022 Albumin/Globulin [Mass ratio] 1.2 {ratio} 0.9-2.4 [facility] Work Phone: Serum or plasma calcium kassandra urement (mass/volume)on 01-25-2022 Calcium [Mass/Vol] 9.8 mg/dL 8.5-10.1 [facility] Work Phone: Serum or plasma creatinine m easurement (mass/volume)on 01-25-2022 Creatinine [Mass/Vol] 0.86 mg/dL 0.55-1.02 [facility] Work Phone: Comment on above: The validity of the calculated GFR & GFRAA in patients over 70 years has not been determined. Clinical correlation is essential. Serum or plasma urea nitroge n measurement (mass/volume)on 01-25-2022 Urea nitrogen [Mass/Vol] 17 mg/dL 7-18 [facility] Work Phone: Squamous epithelial cells de tection in urine sediment by light microscopyon 01-25-2022 Epithelial cells.squamous LM Ql (Urine sed) 0-5 SEEN /hpf 5-10 [facility] Work Phone: Thin prep Papanicolaou smear with manual screeningon 01-25-2022 Thin prep Papanicolaou smear with manual screening 43 U/L 15-37 [facility] Work Phone: Thin prep Papanicolaou smear with manual screening 4 5-15 [facility] Work Phone: Urine blood detectionon 03-0 RBC Ql (U) Negative Negative [facility] Work Phone: RBC Ql (U) 0 SEEN /hpf 0-5 [facility] Work Phone: Urine clarityon 01-25-2022 Clarity (U) Sl. Cloudy Clear [facility] Work Phone: Urine color determinationon 01-25-2022 Color (U) Yellow Yellow [facility] Work Phone: Urine glucose detectionon Glucose Ql (U) Normal mg/dl Normal [facility] Work Phone: Urine leukocyte esterase det ection by dipstickon 01-25-2022 Leukocyte esterase Test strip Ql (U) 25 /ul Negative [facility] Work Phone: Urine pHon 01-25-2022 pH (U) 6.5 [pH] 5.0 - 8.0 [facility] Work Phone: Urine sediment bacteria coun t by microscopy (number/high power field)on 01-25-2022 Bacteria LM.HPF (Urine sed) [#/Area] 1 /[HPF] None Seen [facility] Work Phone: Urine specific gravity measu rementon 01-25-2022 Specific gravity (U) [Rel density] 1.015 1.002-1.03 0 [facility] Work Phone: Urobilinogen Auto test strip Ql (U)on 01-25-2022 Urobilinogen Ql (U) Normal mg/dl Normal [facility] Work Phone: [employer] [place] CCD-CCDAon 04-06-2020 [employer] [place] CCD-CCDA conversion failed Normal [facility] Established [...] unknown etiology; KAYLI = N; Sent To: [facility]; Last Updated By: Zita Mendoza; 2020 11:50:43 AM Upper abdominal pain of unknown etiology Start: Pantoprazole Sodium 40 MG Oral Tablet Delayed Release; Take one tablet every morning before breakfast on an empty stomach for stomach Rx By: Jose Palomares; Dispense: 0 Days ; #:30 Tablet; Refill: 2;For: Upper abdominal pain of unknown etiology; KAYLI = N; Verified Transmission to [facility]; Last Updated By: Belen Lim; 2020 12:21:32 [...] Problems History of Colonoscopy dec 2018 [place] History of Esophagogastroduodenoscopy dec 2018 [place] History of Knee arthroscopy Family History Mother [...] Subcutaneous Solution Pen-injector Vitals Vital Signs Recorded: [id number] 11:47AM Heart Rate71 [id number] Lcmlstgbk52 Height5 ft 9 in Hwtysz049 lb 6 oz BMI Fzzwvndnys24.13 BSA Calculated1.9 O2 [id number] Physical Exam Exam: Const: . Vital signs [...] Palomares DO; 2020 4:07PM EST (Author) [facility] Initial Visit (Gastroenterol ogy)on 12-24-2019 Initial Visit [...] be obtained from your family doctor and [facility] for review. 2. Start Benefiber 1-2 teaspoons every morning. This is pcxp-dfa-umtuluy fiber. 3. Increase dicyclomine 20 mg 3 times a day a half hour before meals. A new prescription was sent to your pharmacy today 4. Start [employer] 2 capsules every morning for a probiotic. This is ntco-bjw-ygoqrou. 5. 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 She has had persistent nausea which was severe initially at the onset of her symptoms in July occurring before and after bowel movements. After starting dicyclomine her nausea has improved. She has been to the [place] emergency department in August and again last [...] Problems History of Colonoscopy dec 2018 [place] History of Esophagogastroduodenoscopy dec 2018 in [place] History of Knee arthroscopy Family History Mother [...] Vital Signs Recorded: 24Dec2019 07:53AM Heart Rate94 Jjkdzctu189 Amgizwbgq81 Height5 ft 9 in Uvfawu728 lb 4 oz BMI Zogbmgwjlh73.7 BSA Calculated1.91 O2 Vhfwbilufc33 Physical Exam Exam: Const: . Vital signs [...] Date Time Vital Sign Value Performing Clinician Faci lity 07-12-2025 13:11-0400 Body height 175.[address] Bret Gomez MD Work Phone: [phone] [place] [address] 07-12-2025 13:11-0400 Body mass index (BMI) [Ratio] 25.4 kg/m2 Dr. Bret Gomez MD Work Phone: [phone] [place] [address] 07-12-2025 13:11-0400 Body weight 78.[address] Bret Gomez MD Work Phone: [phone] [place] [address] 07-12-2025 13:11-0400 Diastolic blood pressure 85 mm[Hg] Dr. Bret Gomez MD Work Phone: [phone] [place] [address] 07-12-2025 13:11-0400 Heart rate 68 /min Dr. Bret Gomez MD Work Phone: [phone] [place] [address] 07-12-2025 13:11-0400 Respiratory rate 17 /min Dr. Bret Gomez MD Work Phone: [facility] 07-12-2025 13:11-0400 SaO2% (BldA) [Mass fraction] 98 % Dr. Bret Gomez MD Work Phone: [phone] [place] [address] 07-12-2025 13:11-0400 Systolic blood pressure 137 mm[Hg] Dr. Bret Gomez MD Work Phone: [facility] 05-18-2025 12:51-0400 Body temperature 98.2 [degF] Dr. Bret Gomez MD Work Phone: [phone])[phone] [place] [address] 05-18-2025 12:51-0400 Diastolic blood pressure 82 mm[Hg] Dr. Bret Gomez MD Work Phone: [phone] [place] [address] 05-18-2025 12:51-0400 Heart rate 63 /min Dr. Bret Gomez MD Work Phone: [phone] [place] [address] 05-18-2025 12:51-0400 Respiratory rate 16 /min Dr. Bret Gomez MD Work Phone: [phone] [place] [address] 05-18-2025 12:51-0400 SaO2% (BldA) [Mass fraction] 99 % Dr. Bret Gomez MD Work Phone: [phone] [place] [address] 05-18-2025 12:51-0400 Systolic blood pressure 118 mm[Hg] Dr. Bret Gomez MD Work Phone: [phone] [place] [address] 05-18-2025 10:33-0400 Body mass index (BMI) [Ratio] 24.4 kg/m2 Dr. Bret Gomez MD Work Phone: 9(724)363-487257 [place] [address] 05-18-2025 09:33-0400 Body temperature 97.4 [degF] Dr. Bret Gomez MD Work Phone: 1(468)180-449457 [place] [address] 05-18-2025 09:33-0400 Diastolic blood pressure 64 mm[Hg] Dr. Bret Gomez MD Work Phone: 3(913)398-658557 [place] [address] 05-18-2025 09:33-0400 Heart rate 70 /min Dr. Bret Gomez MD Work Phone: 4(691)272-103491 [place] [address] 05-18-2025 09:33-0400 Respiratory rate 16 /min Dr. Bret Gomez MD Work Phone: 3(307)422-637157 [place] [address] 05-18-2025 09:33-0400 SaO2% (BldA) [Mass fraction] 98 % Dr. Bret Gomez MD Work Phone: 0(735)174-339591 [place] [address] 05-18-2025 09:33-0400 Systolic blood pressure 107 mm[Hg] Dr. Bret Gomez MD Work Phone: 1(726)772-771091 [place] [address] 05-17-2025 15:27-0400 Body height 175.[address] Bret Gomez MD Work Phone: 9(069)262-390891 [place] [address] 05-17-2025 15:27-0400 Body weight 75.[address] Bret Gomez MD Work Phone: 5(424)311-864091 [place] [address] 05-16-2025 16:00-0400 Diastolic blood pressure 85 mm[Hg] Dr. Bret Gomez MD Work Phone: 4(027)503-474257 [place] [address] 05-16-2025 16:00-0400 Heart rate 70 /min Dr. Bret Gomez MD Work Phone: 3(350)439-589657 [place] [address] 05-16-2025 16:00-0400 Respiratory rate 14 /min Dr. Bret Gomez MD Work Phone: 3(047)085-514457 [place] [address] 05-16-2025 16:00-0400 SaO2% (BldA) [Mass fraction] 99 % Dr. Bret Gomez MD Work Phone: 9(588)248-210857 [place] [address] 05-16-2025 16:00-0400 Systolic blood pressure 141 mm[Hg] Dr. Bret Gomez MD Work Phone: 3(490)795-975757 [place] [address] 05-16-2025 14:55-0400 Body temperature 98.1 [degF] Dr. Bret Gomez MD Work Phone: 6(758)659-744057 [place] [address] 05-16-2025 11:39-0400 Body height 175.[address] Bret Gomez MD Work Phone: 1(020)278-850657 [place] [address] 05-16-2025 11:39-0400 Body mass index (BMI) [Ratio] 24.9 kg/m2 Dr. Bret Gomez MD Work Phone: 6(657)974-527257 [place] [address] 05-16-2025 11:39-0400 Body weight 76.[address] Bret Gomez MD Work Phone: 5(219)408-771157 [place] [address] 05-04-2025 12:55-0400 Body height 175.[address] Bret Gomez MD Work Phone: 9(166)787-698057 [place] [address] 05-04-2025 12:55-0400 Body mass index (BMI) [Ratio] 25.8 kg/m2 Dr. Bret Gomez MD Work Phone: [facility] 05-04-2025 12:55-0400 Body weight 79.[address] Bret Gomez MD Work Phone: [facility] 03-21-2024 05:12-0400 Body temperature 97.7 [degF] Dr. Bret Gomez Work Phone: 5(015)218-396191 [place] [address] 03-21-2024 05:12-0400 Diastolic blood pressure 68 mm[Hg] Dr. Bret Gomez Work Phone: 2(458)125-647282 [address] 03-21-2024 05:12-0400 Heart rate 82 /min Dr. Bret Gomez Work Phone: 2(090)875-261057 [place] [address] 03-21-2024 05:12-0400 Respiratory rate 16 /min Dr. Bret Gomez Work Phone: 9(586)963-530857 [place] [address] 03-21-2024 05:12-0400 SaO2% (BldA) [Mass fraction] 91 % Dr. Bret Gomez Work Phone: 3(661)123-113682 [address] 03-21-2024 05:12-0400 Systolic blood pressure 127 mm[Hg] Dr. Bret Gomez Work Phone: 8(906)131-206157 [place] [address] 03-21-2024 03:27-0400 Body height 175.[address] Bret Gomez Work Phone: 5(067)809-432757 [place] [address] 03-21-2024 03:27-0400 Body mass index (BMI) [Ratio] 26.5 kg/m2 Dr. Bret Gomez Work Phone: 3(955)505-629591 [place] [address] 03-21-2024 03:27-0400 Body weight 81.[address] Bret Gomez Work Phone: 1(002)257-435057 [place] [address] 10-29-2023 08:50-0500 Body temperature 97.7 [degF] Dr. Bret Gomez Work Phone: 8(643)563-125782 [address] 10-29-2023 08:50-0500 Diastolic blood pressure 60 mm[Hg] Dr. Bret Gomez Work Phone: [facility] 10-29-2023 08:50-0500 Heart rate 59 /min Dr. Bret Gomez Work Phone: [facility] 10-29-2023 08:50-0500 Respiratory rate 16 /min Dr. Bret Gomez Work Phone: [facility] 10-29-2023 08:50-0500 SaO2% (BldA) [Mass fraction] 97 % Dr. Bret Gomez Work Phone: [facility] 10-29-2023 08:50-0500 Systolic blood pressure 109 mm[Hg] Dr. Bret Gomez Work Phone: [facility] 10-29-2023 07:04-0500 Body height 175.[address] Bret Gomez Work Phone: [facility] 10-29-2023 07:04-0500 Body mass index (BMI) [Ratio] 26 kg/m2 Dr. Bret Gomez Work Phone: [facility] 10-29-2023 07:04-0500 Body weight [address] Bret Gomez Work Phone: [facility] 10-23-2022 09:00-0500 Body temperature 97 [degF] Dr. Bret Gomez Work Phone: [facility] Work Phone: 10-23-2022 09:00-0500 Diastolic blood pressure 96 mm[Hg] Dr. Bret Gomez Work Phone: [facility] Work Phone: 10-23-2022 09:00-0500 Heart rate 58 /min Dr. Bret Gomez Work Phone: [facility] Work Phone: 10-23-2022 09:00-0500 Respiratory rate 18 /min Dr. Bret Gomez Work Phone: [facility] Work Phone: 10-23-2022 09:00-0500 SaO2% (BldA) [Mass fraction] 98 % Dr. Bret Gomez Work Phone: [facility] Work Phone: 10-23-2022 09:00-0500 Systolic blood pressure 114 mm[Hg] Dr. Bret Gomez Work Phone: [facility] Work Phone: 10-23-2022 07:48-0500 Body height 175.[address] Bret Gomez Work Phone: [facility] Work Phone: 10-23-2022 07:48-0500 Body mass index (BMI) [Ratio] 26 kg/m2 Dr. Bret Gomez Work Phone: [facility] Work Phone: 10-23-2022 07:48-0500 Body weight [address] Bret Gomez Work Phone: [facility] Work Phone: 08-28-2022 11:34-0400 Body mass index (BMI) [Ratio] 25.9 kg/m2 Dr. Bret Gomez Work Phone: [facility] Work Phone: 08-28-2022 11:34-0400 Body weight 79.[address] Bret Gomez Work Phone: [facility] Work Phone: 08-28-2022 11:34-0400 Diastolic blood pressure 84 mm[Hg] Dr. Bret Gomez Work Phone: [facility] Work Phone: 08-28-2022 11:34-0400 Heart rate 53 /min Dr. Bret Gomez Work Phone: [facility] Work Phone: 08-28-2022 11:34-0400 SaO2% (BldA) [Mass fraction] 56 % Dr. Bret Gomez Work Phone: [facility] Work Phone: 08-28-2022 11:34-0400 Systolic blood pressure 137 mm[Hg] Dr. Bret Gomez Work Phone: [facility] Work Phone: 05-15-2022 14:54-0400 Body height 175.[address] Bret Gomez Work Phone: [facility] Work Phone: 05-15-2022 14:54-0400 Body mass index (BMI) [Ratio] 25.8 kg/m2 Dr. Bret Gomez Work Phone: [facility] Work Phone: 05-15-2022 14:54-0400 Body weight 79.[address] Bret Gomez Work Phone: [facility] Work Phone: 05-15-2022 14:54-0400 Diastolic blood pressure 87 mm[Hg] Dr. Bret Gomez Work Phone: [facility] Work Phone: 05-15-2022 14:54-0400 Heart rate 64 /min Dr. Bret Gomez Work Phone: [facility] Work Phone: 05-15-2022 14:54-0400 SaO2% (BldA) [Mass fraction] 96 % Dr. Bret Gomez Work Phone: [facility] Work Phone: 05-15-2022 14:54-0400 Systolic blood pressure 136 mm[Hg] Dr. Bret Gomez Work Phone: [facility] Work Phone: 05-08-2022 13:23-0400 Body temperature 97 [degF] Dr. Bret Gomez Work Phone: [facility] Work Phone: 05-08-2022 13:23-0400 Diastolic blood pressure 63 mm[Hg] Dr. Bret Gomez Work Phone: [facility] Work Phone: 05-08-2022 13:23-0400 Heart rate 71 /min Dr. Bret Gomez Work Phone: [facility] Work Phone: 05-08-2022 13:23-0400 Respiratory rate 16 /min Dr. Bret Gomez Work Phone: [facility] Work Phone: 05-08-2022 13:23-0400 SaO2% (BldA) [Mass fraction] 100 % Dr. Bret Gomez Work Phone: [facility] Work Phone: 05-08-2022 13:23-0400 Systolic blood pressure 120 mm[Hg] Dr. Bret Gomez Work Phone: [facility] Work Phone: 05-08-2022 11:20-0400 Body mass index (BMI) [Ratio] 25 kg/m2 Dr. Bret Gomez Work Phone: [facility] Work Phone: 05-08-2022 11:20-04[address] Body weight [address] Bret Gomez Work Phone: [facility] Work Phone: 01-25-2022 12:02-0500 Diastolic blood pressure 77 mm[Hg] Dr. Bret Gomez Work Phone: [facility] Work Phone: 01-25-2022 12:02-0500 Heart rate 68 /min Dr. Bret Gomez Work Phone: [facility] Work Phone: 01-25-2022 12:02-0500 Respiratory rate 16 /min Dr. Bret Gomez Work Phone: [facility] Work Phone: 01-25-2022 12:02-0500 SaO2% (BldA) [Mass fraction] 98 % Dr. Bret Gomez Work Phone: [facility] Work Phone: 01-25-2022 12:02-0500 Systolic blood pressure 131 mm[Hg] Dr. Bret Gomez Work Phone: [facility] Work Phone: 01-25-2022 09:25-0500 Body mass index (BMI) [Ratio] 25.2 kg/m2 Dr. Bret Gomez Work Phone: [facility] Work Phone: 01-25-2022 09:25-0500 Body temperature 96.9 [degF] Dr. Bret Gomez Work Phone: [facility] Work Phone: 01-25-2022 09:25-0500 Body weight 77.[address] Bret Gomez Work Phone: [facility] Work Phone: Encounters Encounter Date Encounter Type Care Provider Facility Start: 07-12-2025 End: 07-12-2025 ambulatory Bret Gomez Facility:[facility] Start: 07-12-2025 End: 07-12-[address] Marquise Zee MD -[facility] Work Phone: Start: 07-04-2025 End: 07-04-2025 Patient encounter procedure oCty Orourke TAX COLLECTION COORDINATOR-C -[facility] Work Phone: Start: 07-04-2025 End: 07-04-[address] Bret Gomez MD Work Phone: -[facility] Start: 06-10-2025 End: 06-10-[address] Bret Gomez MD Work Phone: -Cat Scan [facility] Start: 06-10-2025 End: 06-10-[address] Bret Gomez MD -Cat Scan [facility] Work Phone: Start: 06-10-2025 End: 06-10-2025 ambulatory Bret Gomez Facility:[facility] Start: 06-06-2025 End: 06-06-[address] Bret Gomez MD Work Phone: -Ultrasound [facility] Start: 06-06-2025 End: 06-06-[address] Bret Gomez MD -Ultrasound [facility] Work Phone: Start: 06-06-2025 End: 06-06-2025 ambulatory Bret Gomez Facility:[facility] Start: 05-18-2025 Non-patient / Non-visit Dr. Torsten Cisneros DO -[facility] Work Phone: Start: 05-17-2025 Non-patient / Non-visit Dr. Gage WILL -[facility] Start: 05-17-2025 Non-patient / Non-visit Dr. Torsten Cisneros DO [facility] Work Phone: Start: 05-16-2025 End: 05-18-2025 ambulatory Marilin Yuen Facility:[facility] Start: 05-16-2025 End: 05-18-2025 Evaluation and management of inpatient Dr. Marilin Yuen MD -Pro[facility] Care Unit Work Phone: Start: 05-16-2025 End: 05-18-[address] Bret Gomez MD Work Phone: [facility] Work Phone: Start: 05-04-2025 End: 05-04-[address] Kaiser Cee MD -[facility] Start: 05-04-2025 End: 05-04-[address] Bret Gomez MD Work Phone: [facility] Work Phone: Start: 11-26-2024 ambulatory Bret Gomez Facility:[facility] Start: 11-19-2024 Encounter for gynecological examination (general) (routine) without abnormal findings Ras Lillieow TAX COLLECTION COORDINATOR [facility] Start: 10-19-2024 End: 10-19-2024 ambulatory Ras McMorrow TAX COLLECTION COORDINATOR Facility:[facility] Start: 09-27-2024 End: 09-27-2024 ambulatory Bret Gomez Facility:[facility] Start: 08-12-2024 End: 08-12-2024 ambulatory Gumaro Sandhu Facility:[facility] Start: 08-04-2024 End: 08-04-2024 ambulatory Gumaro Friend Facility:[facility] Start: 07-16-2024 ambulatory Gumaro Friend Facility :[facility] Start: 07-16-2024 End: 07-16-2024 ambulatory Gumaro Friend Facility:[facility] Start: 03-21-2024 End: 03-21-2024 Emergency department patient visit Dr. Bret Gomez Work Phone: [facility]-Emergency Department Work Phone: Start: 03-16-2024 End: 03-16-2024 Non-patient / Non-visit Dr. Bret Gomez Work Phone: [facility] Work Phone: Start: 03-16-2024 End: 03-16-[address] Bret Gomez Work Phone: [facility] Work Phone: Start: 03-16-2024 End: 03-16-[address] Bret Gomez Work Phone: [facility]-Pulmonary Services/Neurology Work Phone: Start: 03-08-2024 End: 03-08-[address] Bret Gomez Work Phone: [facility] Work Phone: Start: 03-08-2024 End: 03-08-[address] Bret Gomez Work Phone: [facility] Work Phone: Start: 02-23-2024 End: 02-23-[address] Bret Gomez Work Phone: [facility] Work Phone: Start: 02-23-2024 End: 02-23-[address] Bret Gomez Work Phone[facility] Start: 02-17-[address] Bret Gomez Work Phone: [facility]-Physical Therapy Work Phone: Start: 02-13-2024 End: 02-13-[address] Bret Gomez Work Phone: [facility] Work Phone: Start: 10-29-2023 Non-patient / Non-visit Dr. Torsten Gomez Work Phone: [facility] Start: 10-29-2023 End: 10-29-2023 Admission to same day surgery center Dr. Bret Gomez Work Phone: [facility]-Endoscopy Work Phone: Start: 10-29-2023 End: 10-29-[address] Bret Gomez Work Phone: [facility] Work Phone: Start: 10-27-2023 End: 10-27-[address] Bret Gomez Work Phone: [facility] Work Phone: Start: 10-27-2023 End: 10-27-[address] Bret Gomez Work Phone: [facility]-Outpatient Breast Imaging Work Phone: Start: 09-30-2023 End: 09-30-2023 ambulatory [facility] Work Phone: Start: 09-30-2023 End: 09-30-2023 Patient encounter procedure [facility] Start: 09-01-2023 End: 09-01-2023 ambulatory [facility] Work Phone: Start: 09-01-2023 End: 09-01-2023 Patient encounter procedure [facility]-Laboratory Work Phone: Start: 03-19-2023 End: 03-19-2023 ambulatory [facility] Work Phone: Start: 03-19-2023 End: 03-19-2023 Patient encounter procedure [facility] Start: 10-23-2022 Non-patient / Non-visit Dr. Torsten Gomez Work Phone: [facility] Start: 10-23-2022 End: 10-23-2022 Admission to same day surgery center Dr. Bret Gomez Work Phone: [facility]-Endoscopy Start: 10-23-2022 End: 10-23-[address] Bret Gomez Work Phone: [facility] Work Phone: Start: 10-01-2022 End: 10-01-[address] Bret Gomez Work Phone: [facility]-Outpatient Bone Densitometry Start: 09-25-2022 End: 09-25-[address] Bret Gomez Work Phone: [facility]-Outpatient Breast Imaging Start: 09-20-2022 End: 09-20-[address] Bret Gomez Work Phone: [facility] Start: 08-28-2022 End: 08-28-[address] Bret Gomez Work Phone: [facility] Start: 06-10-2022 End: 06-10-[address] Bret Gomez Work Phone: [facility]-Nuclear Medicine, [facility] Start: 05-22-2022 End: 05-22-[address] Bret Gomez Work Phone: [facility]-Laboratory Start: 05-15-2022 End: 05-15-[address] Bret Gomez Work Phone: [facility]-Laboratory Start: 05-15-2022 End: 05-15-[address] Bret Gomez Work Phone: [facility] Start: 05-08-2022 Non-patient / Non-visit Dr. Torsten Gomez Work Phone: [facility] Start: 05-08-2022 End: 05-08-2022 Admission to same day surgery center Dr. Bret Gomez Work Phone: [facility]-Endoscopy Start: 02-12-2022 End: 02-12-[address] Bret Gomez Work Phone: [facility] Start: 01-25-2022 End: 01-25-2022 Emergency department patient visit Dr. Bret Gomez Work Phone: [facility]-Emergency Department Procedures Date Procedure Procedure Detail Performing Clinician Start: 06-10-2025 CT of thorax with contrast Dr. Bret anna MD Work Phone: Start: 06-06-2025 US scan of thyroid Dr. Bret Gomez MD Work Phone: Start: 05-17-2025 MRI of brain with contrast Dr. Bret anna MD Work Phone: Start: 05-17-2025 MRI of cervical spine with contrast Dr. Bret Gomez MD Work Phone: Start: 05-17-2025 Cardiovascular stress test using pharmacologic stress agent Dr. Bret Gomez MD Work Phone: Start: 05-17-[address] Bret Gomez MD Work Phone: Start: 05-16-2025 CT angiography of head and neck Dr. Bret Gomez MD Work Phone: Start: 05-16-2025 CT of head without contrast [...] Treatment Date Care Activity Detail Author Start: 06-10-2025 CT Chest W contrast IV [facility] Start: 06-10-2025 CT of thorax with contrast Chest WITH Contrast [facility] Start: 05-18-2025 Patient discharge [facility] Start: 05-17-2025 [facility] Start: 05-17-2025 [facility] Start: 05-17-2025 NM Heart Views W stress and W radionuclide IV [facility] Start: 05-17-2025 Nuclear Stress Test - Chemical Nuclear Stress Test - Chemical [facility] Start: 05-17-2025 Thyroid stimulating hormone measurement [facility] Start: 05-17-[address] [facility] Start: 05-16-2025 Electrocardiographic procedure [facility] Start: 05-16-2025 Vital signs measurements [facility] Start: 05-16-2025 Aspiration precautions [facility] Start: 05-16-2025 Cardiac monitoring [facility] Start: 05-16-2025 Catheterization of vein [facility] Start: 05-16-2025 Consultation [facility] Start: 05-16-2025 Elevation of head of bed [facility] Start: 05-16-2025 Exercises [facility] Start: 05-16-2025 Patient referral to dietitian [facility] Start: 05-16-2025 Referral to occupational therapist [facility] Start: 05-16-2025 Referral to service [facility] Start: 05-16-2025 Speech therapy assessment [facility] Start: 05-16-2025 Telemedicine consultation with patient [facility] Start: 05-16-2025 Following clinical pathway protocol [facility] Start: 05-16-2025 Assessment of risk of venous thromboembolism [facility] Start: 05-16-2025 Care regimes management [facility] Start: 05-16-2025 CT angiography of head and neck CTA Head AND Neck W/ Contrast [facility] Start: 05-16-2025 Insertion of catheter into peripheral vein [facility] Start: 05-16-2025 Measuring intake and output [facility] Start: 05-16-2025 End: 05-16-2025 Notification of physician [facility] Start: 05-16-2025 Providing care according to standard [facility] Start: 05-16-2025 Provision of activity privileges [facility] Start: 05-16-2025 End: 05-16-2025 Tobacco use cessation education [facility] Start: 05-16-2025 End: 05-16-2025 [facility] Start: 05-16-2025 Verification routine [facility] Start: 05-16-2025 Admission procedure [facility] Start: 05-16-2025 End: 05-16-2025 [facility] Start: 05-04-2025 X-ray of knee, four or more views Knee 4 or More Views [facility] Start: 05-04-2025 XR Knee GE 4 Views [facility] Start: 10-29-2023 Egd transoral biopsy single/multiple EGD BIOPSY SINGLE/MULTIPLE [facility] Start: 10-29-2023 Patient discharge [facility] Start: 10-23-2022 Patient discharge [facility] Work Phone: Start: 05-15-2022 Gastrin [Mass/volume] in Serum or Plasma [facility] Work Phone: Start: 05-08-2022 Colonoscopy w/biopsy single/multiple COLONOSCOPY AND BIOPSY [facility] Work Phone: Start: 05-08-2022 Colsc flx w/rmvl of tumor polyp lesion snare tq COLONOSCOPY W/LESION REMOVAL [facility] Work Phone: Start: 05-08-2022 Egd transoral biopsy single/multiple EGD BIOPSY SINGLE/MULTIPLE [facility] Work Phone: Start: 05-08-2022 Patient discharge [facility] Work Phone: Alanine aminotransfe rase [Enzymatic activity/volume] in Serum or Plasma [facility] Albumin [Mass/volume ] in Serum or Plasma [facility] Alkaline phosphatase [Enzymatic activity/volume] in Serum or Plasma [facility] Anion gap in Serum or Plasma [facility] Bilirubin, total measurement [facility] BUN/Creatinine ratio [facility] Calcium [Mass/volume ] in Serum or Plasma [facility] Carbon dioxide, tota l [Moles/volume] in Central venous blood [facility] Cholesterol [Mass/vo lume] in Serum or Plasma [facility] Cholesterol in HDL [Mass/volume] in Serum or Plasma [facility] Creatinine [Mass/vol ume] in Serum or Plasma [facility] Erythrocyte mean cor puscular volume determination [facility] Gastrin [Mass/volume ] in Serum or Plasma [facility] Work Phone: Glucose [Mass/volume ] in Serum or Plasma [facility] Hematocrit [Volume F raction] of Blood [facility] Hemoglobin [Mass/vol ume] in Blood [facility] Leukocytes [#/volume] in Blood [facility] Low density lipoprot ein cholesterol measurement [facility] Magnesium measurement [facility] Mean corpuscular hem oglobin concentration determination [facility] Mean corpuscular hem oglobin determination [facility] Measurement of renal function [facility] Neutrophil count [facility] Neutrophil percent differential count [facility] Patient Education [facility] Work Phone: Patient referral [facility] Work Phone: Platelets [#/volume] in Blood [facility] Potassium measurement [facility] Red blood cell count [facility] Red cell distributio n width determination [facility] Serum chloride measurement [facility] Sodium measurement [facility] Total cholesterol:HD L ratio measurement [facility] Total protein measurement [facility] Triglycerides measurement [facility] Troponin T.cardiac [Mass/volume] in Serum or Plasma by High sensitivity method [facility] Urea nitrogen [Mass/ volume] in Serum or Plasma [facility] VLDL cholesterol measurement [facility] Immunizations Immunization Date Immunization Notes Care Provider Fa [facility] 06-13-[address] Fidelia Gomez Work Phone: [facility] Work Phone: 06-13-2014 pneumococcal vaccine , unspecified formulation Dr. Bret Gomez Work Phone: [facility] 08-30-[address] Bret Gomez Work Phone: [facility] Payers Date Payer Category Payer Self-pay [id number] 2024 Private Health Insurance [id number] Private Health Insurance [id number] Private Health Insurance [id number] Unknown [id number] Unknown [id number] Unknown ANTHEM [id number] Unknown [id number] 2.16.8 40.1.566419.3.579.2.462 Unknown [id number] 2.16.8 40.1.323181.3.579.2.462 Unknown [id number] 2.16.8 40.1.725420.3.579.2.462 Unknown [id number] 2.16.8 40.1.357646.3.579.2.462 Unknown [id number] 2.16.8 40.1.864861.3.579.2.462 Unknown [id number] 2.16.8 40.1.771795.3.579.2.462 Unknown [id number] 2.16.8 40.1.334091.3.579.2.462 Unknown [id number] 2.16.8 40.1.224919.3.579.2.462 Unknown [id number] 2.16.8 40.1.645898.3.579.2.462 Unknown [id number] 2.16.8 40.1.103419.3.579.2.462 Unknown [id number] 2.16.8 40.1.094745.3.579.2.462 Unknown [id number] 2.16.8 40.1.491226.3.579.2.462 Unknown [id number] 2.16.8 40.1.788317.3.579.2.462 Unknown [id number] 2.16.8 40.1.101586.3.579.2.462 Unknown [id number] 2.16.8 40.1.117472.3.579.2.462 Unknown [id number] 2.16.8 40.1.477349.3.579.2.462 Unknown [id number] 2.16.8 40.1.503062.3.579.2.462 Unknown [id number] 2.16.8 40.1.210524.3.579.2.462 Social History Date Type Detail Facility Start: 05-15-2022 End: 03-21-2024 Tobacco smoking status FLIS Unknown if ever smoked [facility] Start: 06-11-2014 Occasional [facility] Start: 06-11-2014 None [facility] Start: 12-16-2019 Alone [facility] Start: 02-07-2021 Non-smoker [facility] Start: 1965 Sex Assigned At Female [facility] Start: 07-13-2024 End: 05-18-2025 Tobacco smoking status NHIS Ex-smoker (finding) [facility] Medical Equipment Procedure Code Equipment Code Equipment [...] cholecystectomy with exploration of common bile duct CLIP,PRICEAPRIL ROSE FDA Start: 02-08-2021 Total cholecystectomy with exploration of common bile duct CLIP,HEMOLOANABEL ROSE FDA Start: 02-08-2021 Total cholecystectomy with exploration of common bile duct CLIP,HEMOLOANABEL CEDEÑO WEANABEL FDA Start: 02-08-2021 Total cholecystectomy with exploration of common bile duct CLIP,HEMOLOANABEL CEDEÑO WEANABEL FDA Start: 02-08-2021 Total cholecystectomy with exploration [...] cholecystectomy with exploration of common bile duct CLIP,HEMMINISTERIOANABEL ROSE FDA Start: 02-08-2021 Total cholecystectomy with [...] with exploration of common bile duct CLIP,RICKY BARBERCK FDA Start: 02-08-2021 Total cholecystectomy with exploration of common bile duct CLIP,HEMAPRIL CEDEÑO WECK FDA Start: 02-08-2021 Total cholecystectomy with exploration of common bile duct CLIP,HEMAPRIL BARBERCK FDA Start: 02-08-2021 Total cholecystectomy with exploration of common bile duct CLIP,RICKY BARBERCK FDA Start: 02-08-2021 Total cholecystectomy with exploration of common bile duct CLIP,RICKY BARBERANABEL FDA Start: 02-08-2021 Total cholecystectomy with exploration of common bile duct CLIP,HEMAPRIL BARBERANABEL FDA Start: 02-08-2021 Total cholecystectomy with exploration of common bile duct CLIP,HEMAPRIL BARBERANABEL FDA Start: 02-08-2021 Total cholecystectomy with exploration of common bile duct CLIP,RICKY BARBERANABEL FDA Start: 02-08-2021 Total cholecystectomy with exploration of common bile duct CLIP,RICKY BARBERANABEL FDA Start: 02-08-2021 Total cholecystectomy with exploration of common bile duct CLIP,RICKY ROSE FDA Start: 02-08-2021 Total cholecystectomy with exploration of common bile duct CLIP,RICKY ROSE FDA Start: 02-08-2021 Total cholecystectomy with exploration of common bile duct CLIP,RICKY ROSE FDA Start: 02-08-2021 Goals Date Patient Goal Desired Activity /State Functional Status Date Assessment Result Facility 05-18-2025 Functional status Activity Ability Indepe ndent [facility] Work Phone: 05-17-2025 Functional status Ambulates;Up ad brenad [facility] Work Phone: Mental Status Date Assessment Result Facility 05-18-2025 Cognitive function Voice/Name [facility] Work Phone: 05-16-2025 Cognitive function Voice/Name [facility] Work Phone: 10-29-2023 Cognitive function Voice/Name [facility] Work Phone: 10-23-2022 Cognitive function Voice/Name [facility] Work Phone: 05-08-2022 Cognitive function Voice/Name [facility] Work Phone: Clinical Notes 10-29-2023 to 06-12-2025 Note Date & Type Note Facility 06-12-2025 Radiology Diagnostic study note [facility] Imaging Services [address] [place] [address] Chest WITH Contrast MR#: [id number] Acct: [id number] Name: QI PHILIPPE Rep #: [id number] : 1965 F 60 From: Geremias Silva DO PCP: Dr. Bret Gomez MD Status: REG CLI Study:Chest WITH Contrast Date of Exam: 06/10/25 Exam# [id number] Ordering Dr: Torsten Gomez MD PROCEDURE: CHEST WITH CONTRAST 06/10/2025 REASON FOR EXAM: NODULE TECHNIQUE: CHEST WITH CONTRAST Coronal and Sagittal reconstruction series were provided. CONTRAST: Isovue 370 VOLUME: 96 mL One or more dose reduction techniques were used (e.g., Automated exposure control, adjustment of the mA and/or kV according to patient size, use of iterative reconstruction technique). RADIATION DOSE SUMMARY: CTDlvol: 29 mGy DLP: 497 mGycm COMPARISON: Chest x-ray study dated 05/16/2025 FINDINGS: Lymph nodes: There is no mediastinal, hilar or axillary adenopathy based upon CTcriteria. Heart and Vasculature: Heart size and configuration are within normal limits. Pulmonary vasculature is unremarkable. Aorta is non aneurysmal. Lungs and Airways: There is a 2 mm noncalcified nodule identified in the right lower lobe along the anterior lateral aspect on image number 87. There is a 1 cm nodule identified in the lateral aspect of theleft upper lobe on image number 40. This nodule appears dense. Remaining lung jimenez are clear. There is no atelectasis, consolidation, effusion, pneumothorax or pneumonia. Pleura: Unremarkable. Upper Abdomen: The visualized portions of the liver, spleen, pancreas, adrenal glands, and kidneys are unremarkable. Bones: Mild degenerative changes of the thoracic spine are noted. CT/Chest WITH Contrast IMPRESSION: There are 2 lung nodules seen. 1 in the right lung and 1 in the left lung. Follow-up study in 3 months is recommended for re-evaluation Reading Location: [id number] CC: Dr. Bret Gomez MD ~ Client Manager Large Law: Signed [facility] 06-08-2025 Radiology Diagnostic study note [facility] Imaging Services [address] [place] [address] Thyroid MR#: [id number] Acct: [id number] Name: QI PHILIPPE Rep #: [id number] : 1965 F 60 From: Sergio Holly MD PCP: Dr. Bret Gomez MD Status: REG CLI Study:Thyroid Date of Exam: 06/06/25 Exam# [id number] Ordering Dr: Torsten Gomez MD PROCEDURE: THYROID 06/06/2025 REASON FOR EXAM: PULMONARY NODULE TECHNIQUE: THYROID COMPARISON: None FINDINGS: Right thyroid lobe size: 5.2 cm x 1.7 cm x 1.3 cm Left thyroid lobe size: 5.5 cm 1.6 cm 1.2 cm Isthmus: 0.2 cm Background parenchymal echotexture is homogeneous. Nodules: There is an 8 mm x 6 mm x 4 mm cyst in the upper pole of the right lobe of the thyroid. There is also a 5 mm x 4 mm x 3 mm complex cyst in the lower pole of the right lobe as well as an 8 mm x 7 mm x 4 mm complex cyst in the lower lobe. There is a 1.2 cm x 1 cm x 0.8 cm complex hypoechoic nodule in the upper lobe aswell as a 1.6 cm 1.3 cm x 0.9 cm complex hypoechoic solid nodule in the lower pole. Biopsy of this abnormality suggestedfor further evaluation. US/Thyroid IMPRESSION: Bilateral thyroid nodules as described. Biopsy of a 1.6 cm x 1.3 cm x 0.9 cm complex nodule in the lower pole of the left lobe recommended. RECOMMENDATION: Based on most suspicious nodule. Nodule size = largest diameter Only evaluate nodule if =>5 mm. Growth > 20% in 2 dimensions = worsening. Follow up to 4 nodules. Recommend biopsy for no more than 2 nodules. Reading Location: [place] [address] CC: Dr. Bret Gomez MD ~ Client Manager Large Law: Signed [facility] 05-18-2025 Discharge summary Note Date/Time May 18, 2025 12:52pm [facility] Medical Records Department [address] [place] [address] Discharge Summary 05/18/25 1247 MR#: [id number] Acct: [id number] Name: QI PHILIPPE Rep #:[id number] : 1965 60 From: Bret Cisneros DO PCP: Dr. Bret Gomez MD Status:ADM JAZMIN Location: [place] [address] Providers Date of Admission: 05/16/25 Primary Care Physician: Dr. Bret Gomez MD Consultations 05/16/25 17:27 Consult: Tele-Neurology Routine Consulting Provider: [facility] Reason for Consult: waxing and waning left arm and below left knee tingling/nmbness EMERGENT Consult: No MD Notified: Yes Date Notified: 05/16/25 Time Notified: 17:41 Method of Notification: Answering Service Nursing Unit Staff Notify [facility] of Tele-Neurology Consult: Yes Reason For Visit: CHEST PAIN Diagnosis Discharge Diagnosis (1) Chest pain: Status: Acute Code(s): R07.9 - Chest pain, unspecified Plan: Stress test negative. No additional workup. (2) Paresthesia of left upper and lower extremity: Status: Acute Code(s): R20.2 - Paresthesia of skin Plan: CTA head a neck was unremarkable. Head CT negative. MRI brain negative. MRI cervical spine. Eerpewxf-rh-syfati multilevel degenerative changes of the cervical spine, worst at C5-6 and C6-7 as detailed above. No abnormal cord signal or enhancement within the limitations of motion. Unclear if patient is having some nerve root impingement due to this degenerative changes in her cervical spine. Did recommend that she a follow-up with spine surgery to have them evaluate that to see if there would be anything necessary to do. Plan Pulmonary nodule: Measuring 8 mm. Patient states that she has been told she hashad a pulmonary nodule in the past. Outpt CT Thryoid nodule: Reviewed her records through [employer] and I did not see any reports of this in the past. Did discuss this with the patient. It is measuring 1.6 cm. Outpt US. DM2: metformin held given CTA. SSI. a1c 6.2. HTN: lisinopril HCTZ. VTE prophylaxis: LMWH. Medications at Discharge Home Medications lisinopril 20 mg-hydrochlorothiazide 25 mg tablet 1 tab PO DAILY 06/11/14 multivitamin 1 tab PO DAILY 02/06/21 calcium 600 mg (as carbonate)-vitamin D3 10 mcg (400 unit) tablet (Calcium 600 +D(3)) 1 tab PO Q12H 05/01/22 metformin 500 mg tablet 250 mg PO BID 10/28/23 pravastatin 40 mg tablet 40 mg PO QHS 03/21/24 omeprazole 40 mg capsule,delayed release 40 mg PO QDAY #90 caps 04/15/25 sucralfate 1 gram tablet 1 g PO TID ulcers #90 tabs 04/15/25 Hospital Course Operations None Procedures 2-D Echocardiogram Summary of Care Provided Minutes Spent on Discharge: 32 Hospital Course: This is a 60-year-old female presents with chest pain as well as left-sided paresthesias. She underwent a stress test that was negative. And for her left-sided weakness, her workup was unremarkable except for degenerative changes noted through her cervical spine. She had no cord impingement but concerning that given her left-sided symptoms which is down her arm and leg that she could potentially be having intermittent paresthesias present perhaps due to that. Did recommend that she follow-up with spine surgery to see if there is there would be anything necessary to do from a surgical perspective. So with her CAT scans that she had had patient was known to have a pulmonary nodule which patient apparently has been aware of in the past as well as a thyroid nodule which she was not. I recommended those to be followed up as outpatient with CATscan and ultrasound, respectively. Weight / BMI Weight Weight: 75.1 kg Body Mass Index (BMI) 24.4 ABG / Lab / Microbiology Data 05/17/25 05:45 05/17/25 05:45 Laboratory: Laboratory Results - last 24 hr 05/17/25 16:35: POC Glucose 98 05/17/25 21:03: POC Glucose 85 05/18/25 06:23: POC Glucose 112 H 05/18/25 11:21: POC Glucose 100 Radiography Diagnostic Testing: Radiology Impression Brain MRI 05/17/25 13:06 IMPRESSION: 1. No acute intracranial abnormality, to include no acute ischemia. 2. Minimal microvascular ischemic changes. Reading Location: [id number] Cervical Spine MRI 05/17/25 13:06 IMPRESSION: Pxbwovqj-su-geqyfk multilevel degenerative changes of the cervical spine, worst at C5-6 and C6-7 as detailed above. No abnormal cord signal or enhancement within the limitations of motion. Reading Location: [id number] D/C Instructions Discharge Diet: No restrictions DC O2, CPAP, BIPAP Needs Home O2 Discharge instructions: No Meaningful Use Info Meaningful Use Meaningful Use Diagnoses (Choose all that apply): None applicable Ischemic Stroke Statin Dosing Therapy Reference: STATIN DOSE THERAPY REFERENCE: * Patients > 75 years receive moderate or high dose statin therapy. * Patients 75 years or YOUNGER should receive HIGH intensity statin dose unless contraindicated. You will be required to document reason for non-treatment if statin daily dose does not meet guidelines. HIGH DOSE STATIN THERAPY DAILY Atorvastatin > than or = to 40 mg Rosuvastatin > than or = to 20 mg Amlodipine + Atorvastatin > than or = to 2.5/40 mg Ezetimibe + Simvastatin 10/80 mg Simvastatin 80mg Discharge Plan Admission Admit Date/Time: 05/16/25 16:00 Primary Reason for Your Visit: Left-sided numbness Attending Provider: Bret Cisneros Primary Care Provider: Bret Gomez Consulting Providers: Devante James; Dani Mendez; Samantha Joseph; Mariama Flanagan; Debora Mcclendon; Glenn Aguayo; Ondina Peng; Samson Darling; Toby Carney; Vidal Subramanian; Edita Tamayo; Augustus Glaser; Marga Cox; Betina Gore; Jose Alberto John; Zak Chisholm; Ambar Birmingham; Jai Espitia; Tiffanie Nolasco; Swapna,Komalf;Marilin Yuen Instructions Additional Instructions / Restrictions: You did have chest pain but your workup from a cardiac standpoint was normal. And you had some numbness in your left arm and leg. Your workup was also normalbut you did have arthritic did not degenerative changes in your cervical spine that could potentially intermittently cause the symptoms. You may follow-up with a spine surgeon to see if that would need any additional workup at this time. Also with the CAT scans it was noted that you had a thyroid as well as a pulmonary nodule. I recommend following up with Dr. Gomez about having further imaging performed of those for monitoring purposes as outpatient. Discharge Orders/Prescriptions Prescriptions: Continued multivitamin Tablet 1 tab PO DAILY lisinopril-hydrochlorothiazide [...] 1 g PO TID Qty: 90 3RF Referrals / Follow Up: Bret Gomez MD [Primary Care Provider] - Within 2 Weeks Disposition Disposition (needs filled in before D/C Order can be placed): Home, Self Care Charges/Coding Visit Charges Inpatient E&M: 47197 Disch Hosp >30min 05/18/25 1252 <Electronically signed by Bret Cisneros DO> Cosigner Signature (if applicable): CC: Dr. Bret Cisneros DO; Dr. Bret Goemz MD~ Signed [facility] Work Phone: 1(740) 650-121106-25-2025 Progress note Author Bret Cisneros [facility] Note Date/Time May 18, 2025 12:4 7pm [facility] Medical Records Department [address] [place] [address] Progress Note - Hospitalist 05/18/25 0845 MR#: [id number] Acct: [id number] Name: QI PHILIPPE Rep #:[id number] : 1965 60 From: Bret Cisneros DO PCP: Dr. Bret Gomez MD Status:ADM JAZMIN Location: [place] [address] Reason for Visit Reason for Visit: Diagnoses Chest pain, unspecified (05/16/25) Paresthesia of skin (05/16/25) Subjective Subjective Feels well. No events overnight. Objective Data Objective Data Vital Signs: Vital Signs Temp Pulse Resp BP Pulse Ox O2 Del Method 36.8 C 55 L 17 120/77 100 Room Air 05/18/25 03:38 05/18/25 03:38 05/18/25 03:38 05/18/25 03:38 05/18/25 03:38 05/18/25 03:42 Oxygen Delivery Method Room Air Weight: 75.1 kg Body Mass Index (BMI) 24.4 Intake & Output: Intake and Output for Last 24 Hours 05/16/25 05/17/25 05/18/25 23:59 23:59 23:59 Intake Total 1000 / 1000 Balance 1000 / 1000 Lab / Micro Data 05/17/25 05:45 05/17/25 05:45 Labs: Laboratory Results - last 24 hr 05/17/25 12:10: POC Glucose 163 H 05/17/25 16:35: POC Glucose 98 05/17/25 21:03: POC Glucose 85 05/18/25 06:23: POC Glucose 112 H Radiography Diagnostic Testing: Radiology Impression Brain MRI 05/17/25 13:06 IMPRESSION: 1. No acute intracranial abnormality, to include no acute ischemia. 2. Minimal microvascular ischemic changes. Reading Location: [facility] Cervical Spine MRI 05/17/25 13:06 IMPRESSION: Bdprefiq-hb-lohjcx multilevel degenerative changes of the cervical spine, worst at C5-6 and C6-7 as detailed above. No abnormal cord signal or enhancement within the limitations of motion. Reading Location: [facility] Physical Exam Const alert and no apparent distress HEENT head/scalp atraumatic and moist oral mucous membranes Neuro Sensorium / Orientation: awake, alert, oriented to person and oriented to place Assessment & Plan Assessment/Plan (1) Chest pain: PLAN: Stress test negative. No additional workup. (2) Paresthesia of left upper and lower extremity: PLAN: CTA head a neck was unremarkable. Head CT negative. MRI brain negative. MRI cervical spine. Qmvbmguy-me-vbuspl multilevel degenerative changes of the cervical spine, worst at C5-6 and C6-7 as detailed above. No abnormal cord signal or enhancement within the limitations of motion. Unclear if patient is having some nerve root impingement due to this degenerative changes in her cervical spine. Did recommend that she a follow-up with spine surgery to have them evaluate that to see if there would be anything necessary to do. PLAN: Plan Pulmonary nodule: Measuring 8 mm. Patient states that she has been told she hashad a pulmonary nodule in the past. Outpt CT Thryoid nodule: Reviewed her records through [employer] and I did not see any reports of this in the past. Did discuss this with the patient. It is measuring 1.6 cm. Outpt US. DM2: metformin held given CTA. SSI. a1c 6.2. HTN: lisinopril HCTZ. VTE prophylaxis: LMWH. NIHSS NIHSS Nursing Documentation NIHSS Nursing Documentation: NIHSS: Ischemic Stroke/TIA Start: 05/16/25 17:27 Text: For PCU Patients: NIH and Neuro Check every 4 Status: Complete hours, PRN and with change in RN caregiver. Freq: [id number] Protocol: Activity Type Activity Date Activity User E-sign Co-sign Detail Recorded Client Recorded Date Recorded By Document 05/17/25 20:49 [id number] 05/17/25 20:53 05/17/25 20:49 NIH Stroke Scale [NIHSS] A score of 0 is normal or asymptomatic . Total possible score is 42. Inpatient: RN or Physician to activate a stroke alert for onset of new stroke symptoms or with NIHSS increase >/= 3 points. Following change in neurological status, NIHSS will be performed per physician order or more frequently PRN. -1a. Level of Consciousness 0 - Alert; keenly responsive -1b. LOC Questions 0 - Answers BOTH questions correctly -1c. LOC Commands 0 - Performs BOTH tasks correctly -2. Best Gaze 0 - Normal -3. Visual 0 - No visual loss -4. Facial Palsy 0 - Normal symmetrical movements -5a. Left Arm 0 - No drift; arm holds 90 ( or 45) degrees for full 10 seconds -5b. Right Arm 0 - No drift; arm holds 90 ( or 45) degrees for full 10 seconds -6a. Left Leg 0 - No drift; leg holds 30- degree position for full 5 seconds -6b. Right Leg 0 - No drift; leg holds 30- degree position for full 5 seconds -7. Limb Ataxia 0 - Absent -8. Sensory 0 - Normal; no sensory loss -9. Best Language 0 - No aphasia; normal -10. Dysarthria 0 - Normal -11. Extinction and Inattention 0 - No abnormality -Total 0 Query Text:A score of 0 is normal or asymptomatic. Total possible score is 42 . ED: Notify Physician for NIHSS increase by > / = 3 points. Inpatient: RN or Physician to activate a stroke alert for NIHSS increase of > / = 3 points. Coma Scale [Assess] -Eye Opening Spontaneous -Motor Obeys Commands -Verbal Oriented [Total] -Coma Scale Total 15 05/18/25 1247 <Electronically signed by Bret Cisneros DO> Cosigner Signature (if applicable): CC: ~ Signed [facility] Work Phone: 1(182) 559-836106-25-2025 Discharge summary [facility] Medical Records Department [address] [place] [id number] Discharge Summary 05/18/25 1247 MR#: [id number] Acct: [id number] Name: QI PHILIPPE Rep #:[id number] : 1965 60 From: Bret Cisneros DO PCP: Dr. Bret Gomez MD Status:ADM JAZMIN Location: [place] [address] Providers Date of Admission: 05/16/25 Primary Care Physician: Dr. Bret Gomez MD Consultations 05/16/25 17:27 Consult: Tele-Neurology Routine Consulting Provider: [facility] Reason for Consult: waxing and waning left arm and below left knee tingling/nmbness EMERGENT Consult: No MD Notified: Yes Date Notified: 05/16/25 Time Notified: 17:41 Method of Notification: Answering Service Nursing Unit Staff Notify [facility] of Tele-Neurology Consult: Yes Reason For Visit: CHEST PAIN Diagnosis Discharge Diagnosis (1) Chest pain: Status: Acute Code(s): R07.9 - Chest pain, unspecified Plan: Stress test negative. No additional workup. (2) Paresthesia of left upper and lower extremity: Status: Acute Code(s): R20.2 - Paresthesia of skin Plan: CTA head a neck was unremarkable. Head CT negative. MRI brain negative. MRI cervical spine. Mudshlss-kt-ihgayx multilevel degenerative changes of the cervical spine, worstat C5-6 and C6-7 as detailed above. No abnormal cord signal or enhancement within the limitations of motion. Unclear if patient is having some nerve root impingement due to this degenerative changes in her cervical spine. Did recommend that she a follow-up with spine surgery to have them evaluate that to see if there would be anything necessary to do. Plan Pulmonary nodule: Measuring 8 mm. Patient states that she has been told she hashad a pulmonary nodule in the past. Outpt CT Thryoid nodule: Reviewed her records through [employer] and I did not see any reports of this in the past. Did discuss this with the patient. It is measuring 1.6 cm. Outpt US. DM2: metformin held given CTA. SSI. a1c 6.2. HTN: lisinopril HCTZ. VTE prophylaxis: LMWH. Medications at Discharge Home Medications lisinopril 20 mg-hydrochlorothiazide 25 mg tablet 1 tab PO DAILY 06/11/14 multivitamin 1 tab PO DAILY 02/06/21 calcium 600 mg (as carbonate)-vitamin D3 10 mcg (400 unit) tablet (Calcium 600 +D(3)) 1 tab PO Q12H05/01/22 metformin 500 mg tablet 250 mg PO BID 10/28/23 pravastatin 40 mg tablet 40 mg PO QHS 03/21/24 omeprazole 40 mg capsule,delayed release 40 mg PO QDAY #90 caps 04/15/25 sucralfate 1 gram tablet 1 g PO TID ulcers #90 tabs 04/15/25 Hospital Course Operations None Procedures 2-D Echocardiogram Summary of Care Provided Minutes Spent on Discharge: 32 Hospital Course: This is a 60-year-old female presents with chest pain as well as left-sided paresthesias. She underwent a stress test that was negative. And for her left- sided weakness, her workup was unremarkable except for degenerative changes noted through her cervical spine. She had no cord impingement but concerning that given her left-sided symptoms which is down her arm and leg that she could potentially be having intermittent paresthesias present perhaps due to that. Did recommend that she follow-up with spine surgery to see if there is there would be anything necessary to do from a surgical perspective. So with her CAT scans that she had had patient was known to have a pulmonary nodule which patient apparently has been aware of in the past as well as a thyroid nodule which she was not. I recommended those to be followed up as outpatient with CATscan and ultrasound, respectively. Weight / BMI Weight Weight: 75.1 kg Body Mass Index (BMI) 24.4 ABG / Lab / Microbiology Data 05/17/25 05:45 05/17/25 05:45 Laboratory: Laboratory Results - last 24 hr 05/17/25 16:35: POC Glucose 98 05/17/25 21:03: POC Glucose 85 05/18/25 06:23: POC Glucose 112 H 05/18/25 11:21: POC Glucose 100 Radiography Diagnostic Testing: Radiology Impression Brain MRI 05/17/25 13:06 IMPRESSION: 1. No acute intracranial abnormality, to include no acute ischemia. 2. Minimal microvascular ischemic changes. Reading Location: [facility] Cervical Spine MRI 05/17/25 13:06 IMPRESSION: Cqmxuawe-eo-qaikpg multilevel degenerative changes of the cervical spine, worst at C5-6 and C6-7 asdetailed above. No abnormal cord signal or enhancement within the limitations of motion. Reading Location: [id number] D/C Instructions Discharge Diet: No restrictions DC O2, CPAP, BIPAP Needs Home O2 Discharge instructions: No Meaningful Use Info Meaningful Use Meaningful Use Diagnoses (Choose all that apply): None applicable Ischemic Stroke Statin Dosing Therapy Reference: STATIN DOSE THERAPY REFERENCE: * Patients > 75 years receive moderate or high dose statin therapy. * Patients 75 years or YOUNGER should receive HIGH intensity statin dose unless contraindicated. You will be required to document reason for non-treatment if statin daily dose does not meet guidelines. HIGH DOSE STATIN THERAPY DAILY Atorvastatin > than or = to 40 mg Rosuvastatin > than or = to 20 mg Amlodipine + Atorvastatin > than or = to 2.5/40 mg Ezetimibe + Simvastatin 10/80 mg Simvastatin 80mg Discharge Plan Admission Admit Date/Time: 05/16/25 16:00 Primary Reason for Your Visit: Left-sided numbness Attending Provider: Bret Cisneros Primary Care Provider: Bret Gomez Consulting Providers: Devante James; Dani Mendez; Samantha Joseph; Mariama Flanagan; Debora Mcclendon; Glenn Aguayo; Ondina Peng; Samson Darling; Toby Carney; Vidal Subramanian; Edita Tamayo; Augustus Glaser; Marga Cox; Betina Gore; Jose Alberto John; Zak Chisholm; Ambar Birmingham; Jai Espitia; Tiffanie Nolasco; Dorothy Barcenas;Marilin Yuen Instructions Additional Instructions / Restrictions: You did have chest pain but your workup from a cardiac standpoint was normal. And you had some numbness in your left arm and leg. Your workup was also normalbut you did have arthritic did not degenerative changes in your cervical spine that could potentially intermittently cause the symptoms. You may follow- up with a spine surgeon to see if that would need any additional workup at this time. Also with the CAT scans it was noted that you had a thyroid as well as a pulmonary nodule. I recommend following up with Dr. Gomez about having further imaging performed of those for monitoring purposes as outpatient. Discharge Orders/Prescriptions Prescriptions: Continued multivitamin Tablet 1 tab PO DAILY lisinopril-hydrochlorothiazide [...] 1 g PO TID Qty: 90 3RF Referrals / Follow Up: Bret Gomez MD [Primary Care Provider] - Within 2 Weeks Disposition Disposition (needs filled in before D/C Order can be placed): Home, Self Care Charges/Coding Visit Charges Inpatient E&M: 37604 Disch Hosp >30min 05/18/25 1252 Cosigner Signature (if applicable): CC: Dr. Bret Cisneros DO; Dr. Bret Gomez MD~ Signed [facility]06-25-2025 [facility] Medical Records Department [address] [place] [address] Discharge Summary 05/18/25 1247 MR#: [id number] Acct: [id number] Name: QI PHILIPPE Rep #: [id number] : 1965 60 From: Bret Cisneros DO PCP: Dr. Bret Gomez MD Status:ADM JAZMIN Location: [place] [address] Providers Date of Admission: 05/16/25 Primary Care Physician: Dr. Bret Gomez MD Consultations 05/16/25 17:27 Consult: Tele-Neurology Routine Consulting Provider: [facility] Reason for Consult: waxing and waning left arm and below left knee tingling/nmbness EMERGENT Consult: No MD Notified: Yes Date Notified: 05/16/25 Time Notified: 17:41 Method of Notification: Answering Service Nursing Unit Staff Notify [facility] of Tele-Neurology Consult: Yes Reason For Visit: CHEST PAIN Diagnosis Discharge Diagnosis (1) Chest pain: Status: Acute Code(s): R07.9 - Chest pain, unspecified Plan: Stress test negative. No additional workup. (2) Paresthesia of left upper and lower extremity: Status: Acute Code(s): R20.2 - Paresthesia of skin Plan: CTA head a neck was unremarkable. Head CT negative. MRI brain negative. MRI cervical spine. Jjammchh-rc-dmyqty multilevel degenerative changes of the cervical spine, worst at C5-6 and C6-7 as detailed above. No abnormal cord signal or enhancement within the limitations of motion. Unclear if patient is having some nerve root impingement due to this degenerative changes in her cervical spine. Did recommend that she a follow-up with spine surgery to have them evaluate that to see if there would be anything necessary to do. Plan Pulmonary nodule: Measuring 8 mm. Patient states that she has been told she has had a pulmonary nodule in the past. Outpt CT Thryoid nodule: Reviewed her records through [employer] and I did not see any reports of this in the past. Did discuss this with the patient. It is measuring 1.6 cm. Outpt US. DM2: metformin held given CTA. SSI. a1c 6.2. HTN: lisinopril HCTZ. VTE prophylaxis: LMWH. Medications at Discharge Home Medications lisinopril 20 mg-hydrochlorothiazide 25 mg tablet 1 tab PO DAILY 06/11/14 multivitamin 1 tab PO DAILY 02/06/21 calcium 600 mg (as carbonate)-vitamin D3 10 mcg (400 unit) tablet (Calcium 600 + D(3)) 1 tab PO Q12H 05/01/22 metformin 500 mg tablet 250 mg PO BID 10/28/23 pravastatin 40 mg tablet 40 mg PO QHS 03/21/24 omeprazole 40 mg capsule,delayed release 40 mg PO QDAY #90 caps 04/15/25 sucralfate 1 gram tablet 1 g PO TID ulcers #90 tabs 04/15/25 Hospital Course Operations None Procedures 2-D Echocardiogram Summary of Care Provided Minutes Spent on Discharge: 32 Hospital Course: This is a 60-year-old female presents with chest pain as well as left-sided paresthesias. She underwent a stress test that was negative. And for her left-sided weakness, her workup was unremarkable except for degenerative changes noted through her cervical spine. She had no cord impingement but concerning that given her left-sided symptoms which is down her arm and leg that she could potentially be having intermittent paresthesias present perhaps due to that. Did recommend that she follow-up with spine surgery to see if there is there would be anything necessary to do from a surgical perspective. So with her CAT scans that she had had patient was known to have a pulmonary nodule which patient apparently has been aware of in the past as well as a thyroid nodule which she was not. I recommended those to be followed up as outpatient with CAT scan and ultrasound, respectively. Weight / BMI Weight Weight: 75.1 kg Body Mass Index (BMI) 24.4 ABG / Lab / Microbiology Data 05/17/25 05:45 05/17/25 05:45 Laboratory: Laboratory Results - last 24 hr 05/17/25 16:35: POC Glucose 98 05/17/25 21:03: POC Glucose 85 05/18/25 06:23: POC Glucose 112 H 05/18/25 11:21: POC Glucose 100 Radiography Diagnostic Testing: Radiology Impression Brain MRI 05/17/25 13:06 IMPRESSION: 1. No acute intracranial abnormality, to include no acute ischemia. 2. Minimal microvascular ischemic changes. Reading Location: [id number] Cervical Spine MRI 05/17/25 13:06 IMPRESSION: Graupvyb-fb-wrbxlw multilevel degenerative changes of the cervical spine, worst at C5-6 and C6-7 as detailed above. No abnormal cord signal or enhancement within the limitations of motion. Reading Location: [id number] D/C Instructions Discharge Diet: No restrictions DC O2, CPAP, BIPAP Needs Home O2 Discharge instructions: No Meaningful Use Info Meaningful Use Meaningful Use Diagnoses (Choose all that apply): None applicable Ischemic Stroke Statin D (more content not included)...[facility]06-25-2025 Progress note [facility] Medical Records Department [address] [place] [address] Progress Note - Hospitalist 05/18/25 0845 MR#: [id number] Acct: [id number] Name: QI PHILIPPE Rep #:[id number] : 1965 60 From: Bret Cisneros DO PCP: Dr. Bret Gomez MD Status:ADM JAZMIN Location: [place] [address] Reason for Visit Reason for Visit: Diagnoses Chest pain, unspecified (05/16/25) Paresthesia of skin (05/16/25) Subjective Subjective Feels well. No events overnight. Objective Data Objective Data Vital Signs: Vital Signs Temp Pulse Resp BP Pulse Ox O2 Del Method 36.8 C 55 L 17 120/77 100 Room Air 05/18/25 03:38 05/18/25 03:38 05/18/25 03:38 05/18/25 03:38 05/18/25 03:38 05/18/25 03:42 Oxygen Delivery Method Room Air Weight: 75.1 kg Body Mass Index (BMI) 24.4 Intake & Output: Intake and Output for Last 24 Hours 05/16/25 05/17/25 05/18/25 23:59 23:59 23:59 Intake Total 1000 / 1000 Balance 1000 / 1000 Lab / Micro Data 05/17/25 05:45 05/17/25 05:45 Labs: Laboratory Results - last 24 hr 05/17/25 12:10: POC Glucose 163 H 05/17/25 16:35: POC Glucose 98 05/17/25 21:03: POC Glucose 85 05/18/25 06:23: POC Glucose 112 H Radiography Diagnostic Testing: Radiology Impression Brain MRI 05/17/25 13:06 IMPRESSION: 1. No acute intracranial abnormality, to include no acute ischemia. 2. Minimal microvascular ischemic changes. Reading Location: [facility] Cervical Spine MRI 05/17/25 13:06 IMPRESSION: Wfpfmqgy-ph-kzmlmk multilevel degenerative changes of the cervical spine, worst at C5-6 and C6-7 asdetailed above. No abnormal cord signal or enhancement within the limitations of motion. Reading Location: [facility] Physical Exam Const alert and no apparent distress HEENT head/scalp atraumatic and moist oral mucous membranes Neuro Sensorium / Orientation: awake, alert, oriented to person and oriented to place Assessment & Plan Assessment/Plan (1) Chest pain: PLAN: Stress test negative. No additional workup. (2) Paresthesia of left upper and lower extremity: PLAN: CTA head a neck was unremarkable. Head CT negative. MRI brain negative. MRI cervical spine. Wuzkdtbn-eb-fjenrj multilevel degenerative changes of the cervical spine, worstat C5-6 and C6-7 as detailed above. No abnormal cord signal or enhancement within the limitations of motion. Unclear if patient is having some nerve root impingement due to this degenerative changes in her cervical spine. Did recommend that she a follow-up with spine surgery to have them evaluate that to see if there would be anything necessary to do. PLAN: Plan Pulmonary nodule: Measuring 8 mm. Patient states that she has been told she hashad a pulmonary nodule in the past. Outpt CT Thryoid nodule: Reviewed her records through [employer] and I did not see any reports of this in the past. Did discuss this with the patient. It is measuring 1.6 cm. Outpt US. DM2: metformin held given CTA. SSI. a1c 6.2. HTN: lisinopril HCTZ. VTE prophylaxis: LMWH. NIHSS NIHSS Nursing Documentation NIHSS Nursing Documentation: NIHSS: Ischemic Stroke/TIA Start: 05/16/25 17:27 Text: For PCU Patients: NIH and Neuro Check every 4 Status: Complete hours, PRN and with change in RN caregiver. Freq: [id number] Protocol: Activity Type Activity Date Activity User E-sign Co-sign Detail Recorded Client Recorded Date Recorded By Document 05/17/25 20:49 [id number] 05/17/25 20:53 05/17/25 20:49 NIH Stroke Scale [NIHSS] A score of 0 is normal or asymptomatic . Total possible score is 42. Inpatient: RN or Physician to activate a stroke alert for onset of new stroke symptoms or with NIHSS increase >/= 3 points. Following change in neurological status, NIHSS will be performed per physician order or more frequently PRN. -1a. Level of Consciousness 0 - Alert; keenly responsive -1b. LOC Questions 0 - Answers BOTH questions correctly -1c. LOC Commands 0 - Performs BOTH tasks correctly -2. Best Gaze 0 - Normal -3. Visual 0 - No visual loss -4. Facial Palsy 0 - Normal symmetrical movements -5a. Left Arm 0 - No drift; arm holds 90 ( or 45) degrees for full 10 seconds -5b. Right Arm 0 - No drift; arm holds 90 ( or 45) degrees for full 10 seconds -6a. Left Leg 0 - No drift; leg holds 30- degree position for full 5 seconds -6b. Right Leg 0 - No drift; leg holds 30- degree position for full 5 seconds -7. Limb Ataxia 0 - Absent -8. Sensory 0 - Normal; no sensory loss -9. Best Language 0 - No aphasia; normal -10. Dysarthria 0 - Normal -11. Extinction and Inattention 0 - No abnormality -Total 0 Query Text:A score of 0 is normal or asymptomatic. Total possible score is 42 . ED: Notify Physician for NIHSS increase by > / = 3 points. Inpatient: RN or Physician to activate a stroke alert for NIHSS increase of > / = 3 points. Coma Scale [Assess] -Eye Opening Spontaneous -Motor Obeys Commands -Verbal Oriented [Total] -Coma Scale Total 15 05/18/25 1247 Cosigner Signature (if applicable): CC: ~ Signed [facility]06-25-2025 Progress note Author Rosanna Vazquez [facility] Note Date/Time May 17, 2025 10:0 0pm [facility] Medical Records Department [address] [place] [address] Progress Note - Hospitalist 05/17/25 2351 MR#: [id number] Acct: [id number] Name: QI PHILIPPE Rep #:[id number] : 1965 60 From: Rsoanna Vazquez MD PCP: Dr. Bret Gomez MD Status:ADM JAZMIN Location: [place] [address] Hospitalist Note MRI brain without acute findings. MRI cervical spine w/ dptzzlxi-cd-mkrlpe multilevel degenerative changes of the cervical spine, worst at C5-6 and C6-7 asdetailed above. No abnormal cord signal or enhancement within the limitations of motion. 05/17/252199 <Electronically signed by Rosanna Vazquez MD> Cosigner Signature (if applicable): CC: ~ Signed [facility] Work Phone: 1([phone]) 559-854306-24-2025 Progress note [facility] Medical Records Department [address] [place] [address] Progress Note - Hospitalist 05/17/25 2159 MR#: [id number] Acct: [id number] Name: QI PHILIPPE Rep #:[id number] : 1965 60 From: Rosanna Vazquez MD PCP: Dr. Bret Gomez MD Status:ADM JAZMIN Location: [place] [address] Hospitalist Note MRI brain without acute findings. MRI cervical spine w/ iypepzhp-jx-xsevpi multilevel degenerative changes of the cervical spine, worst at C5-6 and C6-7 asdetailed above. No abnormal cord signal or enhancement within the limitations of motion. 05/17/252199 Cosigner Signature (if applicable): CC: ~ Signed [facility]06-24-2025 Consult note Author Debora Mcclendon [facility] Note Date/Time May 17, 2025 6:56 pm [facility] Medical Records Department [address] [place] [address] Consultation - Neurology 05/17/25 1126 MR#: [id number] Acct: [id number] Name: QI PHILIPPE Rep #:[id number] : 1965 60 From: Debora Mcclendon MD PCP: Dr. Bret Gomez MD Status:ADM JAZMIN Location: [place] [address] Assessment and Plan: Neuro Assessment/Plan QI PHILIPPE is a 60 F with a past medical history of depression, anxiety, GERD, hypertension, diabetes, being evaluated by Teleneurology for L sided intermittent numbness and tingling in setting of chest and shoulder pain. At this time, symptoms of intermittent numbness not clearly consistent with neurovascular etiology. Appear to be related always to chest discomfort and possible represents referred pain. Exam is benign and no clear focal deficits event on peripheral testing. Will evaluate for possible MEDICAL SOCIOLOGIST etiology but this isunlikely. Plan: - MRI Brain w/wo con and MRI Cervical spine w/o con If above is normal, likely the L sided numbness and tingling are the result of referred pain from the chest discomfort she has. I personally attended this patient and spent a total time of 45 minutes evaluating this patient including clinical assessment, review of chart, medical history imaging, and determining appropriate treatment and workup. HPI Consult Data Date of Consult: 05/17/25 HPI Narrative HPI Narrative: QI PHILIPPE, is a 60-year-old female history of depression, anxiety, GERD, hypertension, diabetes who presented [facility] ED 05/16/2025 forchest pain, nausea, numbness and tingling in the left arm and lower extremity. Reportedly her chest pain and numbness and tingling have been going on for several days, the chest pain has been on the left side of her chest towards her left shoulder that is progressively worsened, worse when she gets up and moves around and does get better with rest. No recent stress test. Does have family history of heart disease. CT head negative, troponins negative and workup otherwise unremarkable. Hospitalist contacted for admission for chest pain ruleout. Patient evaluated at bedside and reports she is coming in for 2 reasons, the intermittent left arm and leg numbness and tingling and some left shoulder pain with some possible reflux-like symptoms. Patient reports that for several days she will get some numb and tingling feeling in her hand and below the knee on the left side that comes and goes does not seem to have any other associations, denies any recent falls or neck pain, did have a flareup of pain in her left knee for which she got a cortisone injection a week ago and that hasimproved. In regards to the concern for chest pain she reports she had some possible pressure-like sensation versus heartburn that has happened intermittently as well as some left shoulder pain however even when she does nothave the heartburn the shoulder pain persists. Occasionally will feel lightheaded and dizzy with some nausea. Does report she has a history of ulcersand has been on sucralfate for the past 1 year, denies any abdominal pain, not taking any ibuprofen. Does have a slight headache but reports she gets them when she has allergies and sinus problems which she reports has been present over the past week Neurologic History Started with L shoulder pain and pain in the chest. Then started having numbnessand tingling in the L arm and leg. Initially had some L pain in the jaw but not since. Nothing like this has happened before. No change in vision, did have nausea. No clumsiness, no difficulty walking. No headache with all this. Never had stroke, no hear conditions at baseline. On no blood thinners at home. No changes in sound of voice, difficulty getting words out etc. Patient is RH, no difficulty with maneuvering the L hand Chest pain was 4-5/10 and happened a couple times but not constant. Numbness andtingling in the arm and legs ar intermittent but no patterns to the numbness butcoincide with pain in shoulder, numbness in the arms and legs, and chest pain coincide. No recent viral illness Neurologic Exam -? General: Laying comfortably in bed; in no acute distress. -? HENT: Normal oropharynx and mucosa. Normal external appearance of ears and nose. Exophthalmos. -? Neck: Supple, no pain or tenderness -? CV:? No peripheral edema. -? Pulmonary:? Normal respiratory effort. -? Ext: No cyanosis, edema, or deformity -? Skin: No rash. Normal palpation of skin.? -? Musculoskeletal: full range of motion; no joint tenderness. Normal digits and nails by inspection. No clubbing. -? NEURO: -? Mental Status: The patient was alert and oriented to time, place, andperson. Normal recent/remote memory, concentration, and general fund of knowledge. -? Language: speech is clear.? Naming, repetition, fluency, and comprehension intact. -? Cranial Nerves: PERRL4 mm/brisk. EOMI, visual jimenez full, slight L facail asymmetry that is baseline, facial sensation intact, hearing intact, tongue midline, no evidence of atrophy or fibrillations. -? Motor: normal bulk, tone, and strength throughout. No pronator drift or satelliting. Upper and lower extremities equal bilaterally. -? Detailed strength exam as performed by the nurse/ANDRE and witnessed bythe physician: l R L SA 5 5 EE 5 5 EF 5 5 WE WF Silverware Buffer 5 5 HF 5 5 KE KF 5 5 DF 5 5 PF Reflexes: biceps 1 1 patellar 2 2 -? Tone: is normal and bulk is normal -? Sensation- Intact to light touch bilaterally -? Coordination: No dysmetria on qcgssm-jtlj-lowkzg, finger follow finger or luza-jnwg-hjys. -? Gait- deferred [facility] Medical History Abdominal pain Fatty liver High [...] current alcohol intake frequency: holidays/special occasions only Vital Signs Vital Signs Vital Signs: 05/16/25 11:39 05/16/25 12:20 05/16/25 12:38 Temperature 98.1 F Temperature Source Oral Pulse Rate 82 72 Pulse Strength Respiratory Rate 19 H 14 Respiratory Effort Respiratory Depth Respiratory Pattern Blood Pressure 164/80 H 129/75 H Blood Pressure Mean 108 93 Blood Pressure Source Blood Pressure Position Blood Pressure Location Pulse Ox 100 99 99 Oxygen Delivery Method Room Air Room Air Room Air 05/16/25 13:00 05/16/25 14:00 05/16/25 14:55 Temperature 98.1 F Temperature Source Pulse Rate 65 62 72 Pulse Strength Respiratory Rate 14 14 18 Respiratory Effort Respiratory Depth Respiratory Pattern Blood Pressure 143/88 H 122/72 H 133/78 H Blood Pressure Mean 106 88 96 Blood Pressure Source Blood Pressure Position Blood Pressure Location Pulse Ox 99 100 99 Oxygen Delivery Method Room Air Room Air 05/16/25 16:00 05/16/25 16:42 05/16/25 17:57 Temperature 98.3 F Temperature Source Oral Pulse Rate 70 65 Pulse Strength Respiratory Rate 14 16 Respiratory Effort Respiratory Depth Respiratory Pattern Blood Pressure 141/85 H 152/76 H Blood Pressure Mean 103 101 Blood Pressure Source Monitor Blood Pressure Position Sitting Blood Pressure Location Left Arm Pulse Ox 99 98 93 Oxygen Delivery Method Room Air Room Air Room Air 05/16/25 19:47 05/16/25 19:47 05/16/25 20:45 Temperature 97.4 F L Temperature Source Temporal Pulse Rate 64 Pulse Strength Normal (2+) Respiratory Rate 18 Respiratory Effort Normal Non-Labored Respiratory Depth Normal Respiratory Pattern Normal Blood Pressure 117/69 Blood Pressure Mean 85 Blood Pressure Source Monitor Blood Pressure Position Semi-Fowlers Blood Pressure Location Left Arm Pulse Ox 98 Oxygen Delivery Method Room Air Room Air 05/17/25 00:45 05/17/25 00:45 05/17/25 05:00 Temperature 97.6 F L 97.7 F L Temperature Source Temporal Temporal Pulse Rate 62 64 Pulse Strength Respiratory Rate 16 18 Respiratory Effort Normal Non-Labored Respiratory Depth Normal Respiratory Pattern Normal Blood Pressure 111/59 L 131/72 H Blood Pressure Mean 76 91 Blood Pressure Source Monitor Monitor Blood Pressure Position Supine Semi-Fowlers Blood Pressure Location Left Arm Left Arm Pulse Ox 96 100 Oxygen Delivery Method Room Air Room Air Room Air 05/17/25 07:40 05/17/25 07:48 05/17/25 08:02 Temperature 97.4 F L Temperature Source Oral Pulse Rate 65 Pulse Strength Respiratory Rate 14 Respiratory Effort Normal Non-Labored Respiratory Depth Normal Respiratory Pattern Normal Blood Pressure 126/59 H Blood Pressure Mean 81 Blood Pressure Source Monitor Blood Pressure Position Semi-Fowlers Blood Pressure Location Left Arm Pulse Ox 97 95 Oxygen Delivery Method Room Air Room Air Room Air 05/17/25 08:02 05/17/25 10:00 Temperature 97.4 F L Temperature Source Oral Pulse Rate 65 Pulse Strength Normal (2+) Respiratory Rate 14 Respiratory Effort Respiratory Depth Respiratory Pattern Blood Pressure 126/59 H Blood Pressure Mean 81 Blood Pressure Source Monitor Blood Pressure Position Semi-Fowlers Blood Pressure Location Left Arm Pulse Ox 95 Oxygen Delivery Method Room Air Weight Weight: 75.1 kg Body Mass Index (BMI) 24.4 EEG Results Procedure Details EEG Procedure Details: QI PHILIPPE is a 60 year old F with a past medical history of , who presents for evaluation of Electroencephalogram on DATE at TIME Lab / Micro Data 05/17/25 05:45 05/17/25 05:45 Labs: Laboratory Results - last 24 hr 05/16/25 12:05: WBC 7.1, RBC 4.77, Hgb 13.8, Hct 41.2, MCV 86.4, MCH 28.9, MCHC 33.5, RDW Std Deviation 37.5, RDW Coeff of Ollie 11.9, Plt Count 328, MPV 9.9, Immature Gran % (Auto) 0.300, Neut % (Auto) 73.0 H, Lymph % (Auto) 20.8, Pickett % (Auto) 5.3, Eos % (Auto) 0.3, Baso % (Auto) 0.3, Absolute Neuts (auto) 5.2, Absolute Lymphs (auto) 1.48, Nucleated RBC % 0, Sodium 136, Potassium 3.6, Chloride 101, Carbon Dioxide 22.0, Anion Gap 13, BUN 13, Creatinine 0.74, Estim Creat Clear Calc 82.38, Est GFR (MDRD) Non-Af 91, BUN/Creatinine Ratio 16.9, Glucose 125 H, Calcium 9.6, Troponin T High Sens < 6 05/16/25 13:25: Troponin T Hi Sens 2 Hr < 6 05/16/25 16:34: Troponin T Hi Sens 4Hr < 6 05/16/25 19:52: POC Glucose 135 H 05/17/25 05:45: WBC 6.3, RBC 4.76, Hgb 13.8, Hct 41.6, MCV 87.4, MCH 29.0, MCHC 33.2, RDW Std Deviation 38.6, RDW Coeff of Ollie 12.0, Plt Count 341, MPV 9.9, Immature Gran % (Auto) 0.300, Neut % (Auto) 56.5, Lymph % (Auto) 32.5, Pickett % (Auto) 8.3, Eos % (Auto) 2.1, Baso % (Auto) 0.3, Absolute Neuts (auto) 3.6, Absolute Lymphs (auto) 2.05, Nucleated RBC % 0, Sodium 137, Potassium 3.6, Chloride 101, Carbon Dioxide 23.3, Anion Gap 13, BUN 12, Creatinine 0.80, Estim Creat Clear Calc 76.20, Est GFR (MDRD) Non-Af 83, BUN/Creatinine Ratio 15.3, Glucose 117 H, Hemoglobin A1c 6.2 H, Calcium 9.2, Magnesium 2.1, Total Bilirubin 0.55, AST 24, ALT 21, Alkaline Phosphatase 70, Total Protein 7.2, Albumin 4.6, Globulin 2.7, Albumin/Globulin Ratio 1.7, Triglycerides 114, Cholesterol 150, LDL Cholesterol, Calc 69, VLDL Cholesterol 23, HDL Cholesterol 58, Cholesterol/HDL Ratio 2.58, TSH 1.220 05/17/25 06:18: POC Glucose 117 H Imaging Radiology Impression Chest X-Ray 05/16/25 12:25 IMPRESSION: No acute process is identified in the chest. Reading Location: [facility] Brain CT 05/16/25 13:04 IMPRESSION: No acute intracranial pathology. Reading Location: [facility] Head/Neck CTA 05/16/25 16:41 IMPRESSION: 1. No hemodynamically significant narrowing or large vessel occlusion of the head or neck vasculature. 2. Solid pulmonary nodule in the left upper lobe measuring 8 mm. Recommend dedicated chest CT. 3. Thyroid nodules measuring up to 1.6 cm. Recommend thyroid ultrasound. 4. Right-sided aortic arch. Reading Location: [facility] Active Medications Active Medications Active Medications: Current Medications Generic Name Dose Route Start Last Admin Trade Name Freq PRN Reason Stop Dose Admin Acetaminophen 650 mg 05/16/25 16:41 05/16/25 19:47 Acetaminophen 325 Mg Tablet PO 650 mg Q6H PRN PRN Administration Pain 1-10 Or Fever >100.7 Albuterol Sulfate 2.5 mg 05/16/25 16:41 Albuterol 2.5 Mg/3 Ml Vial.Neb. INHALATION Q2H PRN PRN SOB &/OR WHEEZING Aspirin 81 mg 05/17/25 08:00 05/17/25 06:20 Aspirin E.C. 81 Mg Tablet PO 81 mg BREAKFAST DAX Administration Atorvastatin Calcium 80 mg 05/16/25 22:00 05/16/25 19:47 Atorvastatin Calcium 80 Mg Tablet PO 80 mg QHS DAX Administration Enoxaparin Sodium 40 mg 05/17/25 10:00 Enoxaparin 40 Mg/0.4 Ml Syringe SC DAILY DAX Glucagon 1 mg 05/16/25 16:41 Glucagon 1 Mg/Ml Syringe IM X1 PRN Hypoglycemia Protocol Hydralazine HCl 5 mg 05/16/25 17:23 Hydralazine 20 Mg/Ml Vial IV 05/17/25 17:27 Q30M PRN maintain BP parameters with HR <60 Hydrochlorothiazide 25 mg 05/17/25 10:00 05/17/25 11:06 Hydrochlorothiazide 25 Mg Tablet PO Not Given DAILY DAX Protocol Sodium Chloride 1,000 mls @ 50 mls/hr 05/16/25 16:41 05/16/25 19:48 IV 05/17/25 12:40 50 mls/hr .Q20H DAX Administration Dextrose 250 mls @ 0 mls/hr 05/16/25 16:41 Dextrose 10%-Water IV .Q0M PRN HYPOGLYCEMIA Protocol As Directed Sodium Chloride 250 mls @ 15 mls/hr 05/16/25 16:43 IV .[id number] PRN Saline Flush Insulin Human Lispro 0 unit 05/16/25 22:00 05/17/25 06:22 Insulin Lispro 100 Unit/Ml Insuln.Pen SC Not Given ACHS DAX Protocol Labetalol HCl 10 - 20 mg 05/16/25 17:23 Labetalol 20 Mg/4 Ml Vial IV 05/17/25 17:27 Q10M PRN PRN maintain BP parameters with HR >/=60 Lisinopril 20 mg 05/17/25 10:00 05/17/25 06:20 Lisinopril 20 Mg Tablet PO 20 mg DAILY DAX Administration Protocol Melatonin 10 mg 05/16/25 16:41 Melatonin 3 Mg Tablet PO QHS PRN PRN INSOMNIA Ondansetron HCl 4 mg 05/16/25 16:41 Ondansetron 4 Mg/2 Ml Vial IV Q8H PRN PRN NAUSEA/VOMITING Pantoprazole Sodium 40 mg 05/17/25 10:00 05/17/25 11:07 Pantoprazole Sodium 40 Mg Tablet PO Not Given DAILY DAX Senna/Docusate Sodium 2 tablet 05/16/25 16:41 Senna/Docusate Sodium 1 Tablet PO BID PRN PRN Constipation Sodium Chloride 10 - 40 ml 05/16/25 16:43 05/17/25 06:22 0.9% Saline Lock 10 Ml Syringe IV 10 ml UD PRN Administration SALINE FLUSH Sucralfate 1 gm 05/17/25 07:00 05/17/25 06:22 Sucralfate 1 Gm Tablet PO Not Given TID@0700,1100,1600 [facility] NIHSS NIHSS Nursing Documentation NIHSS Nursing Documentation: NIHSS: Ischemic Stroke/TIA Start: 05/16/25 17:27 Text: For PCU Patients: NIH and Neuro Check every 4 Status: Active hours, PRN and with change in RN caregiver. Freq: [id number] Protocol: Activity Type Activity Date Activity User E-sign Co-sign Detail Recorded Client Recorded Date Recorded By Document 05/17/25 08:03 LING [id number] 05/17/25 08:07 LING 05/17/25 08:03 NIH Stroke Scale [NIHSS] A score of 0 is normal or asymptomatic . Total possible score is 42. Inpatient: RN or Physician to activate a stroke alert for onset of new stroke symptoms or with NIHSS increase >/= 3 points. Following change in neurological status, NIHSS will be performed per physician order or more frequently PRN. -1a. Level of Consciousness 0 - Alert; keenly responsive -1b. LOC Questions 0 - Answers BOTH questions correctly -1c. LOC Commands 0 - Performs BOTH tasks correctly -2. Best Gaze 0 - Normal -3. Visual 0 - No visual loss -4. Facial Palsy 0 - Normal symmetrical movements -5a. Left Arm 0 - No drift; arm holds 90 ( or 45) degrees for full 10 seconds -5b. Right Arm 0 - No drift; arm holds 90 ( or 45) degrees for full 10 seconds -6a. Left Leg 0 - No drift; leg holds 30- degree position for full 5 seconds -6b. Right Leg 0 - No drift; leg holds 30- degree position for full 5 seconds -7. Limb Ataxia 0 - Absent -8. Sensory 0 - Normal; no sensory loss -9. Best Language 0 - No aphasia; normal -10. Dysarthria 0 - Normal -11. Extinction and Inattention 0 - No abnormality -Total 0 Query Text:A score of 0 is normal or asymptomatic. Total possible score is 42 . ED: Notify Physician for NIHSS increase by > / = 3 points. Inpatient: RN or Physician to activate a stroke alert for NIHSS increase of > / = 3 points. Coma Scale [Assess] -Eye Opening Spontaneous -Motor Obeys Commands -Verbal Oriented [Total] -Coma Scale Total 15 05/17/25 8867 <Electronically signed by Debora Mcclendon MD> Cosigner Signature (if applicable): CC: Dr. Bret Gomez MD~ Signed [facility] Work Phone: [phone] 758-957906-24-2025 Consult note [facility] Medical Records Department [address] [place] [address] Consultation - Neurology 05/17/25 1126 MR#: [id number] Acct: [id number] Name: QI PHILIPPE Rep #:[id number] : 1965 60 From: Debora Mcclendon MD PCP: Dr. Bret Gomez MD Status:ADM JAZMIN Location: [place] [address] Assessment and Plan: Neuro Assessment/Plan QI PHILIPPE is a 60 F with a past medical history of depression, anxiety, GERD, hypertension, diabetes, being evaluated by Teleneurology for L sided intermittent numbness and tingling in settingof chest and shoulder pain. At this time, symptoms of intermittent numbness not clearly consistent with neurovascular etiology. Appear to be related always to chest discomfort and possible representsreferred pain. Exam is benign and no clear focal deficits event on peripheral testing. Will evaluate for possible MEDICAL SOCIOLOGIST etiology but this isunlikely. Plan: - MRI Brain w/wo con and MRI Cervical spine w/o con If above is normal, likely the L sided numbness and tingling are the result of referred pain from the chest discomfort she has. I personally attended this patient and spent a total time of 45 minutes evaluating this patient including clinical assessment, review of chart, medical history imaging, and determining appropriate treatment and workup. HPI Consult Data Date of Consult: 05/17/25 HPI Narrative HPI Narrative: QI PHILIPPE, is a 60-year-old female history of depression, anxiety, GERD, hypertension, diabetes who presented [facility] ED 05/16/2025 forchest pain, nausea, numbness and tinglingin the left arm and lower extremity. Reportedly her chest pain and numbness and tingling have been going on for several days, the chest pain has been on the left side of her chest towards her left shoulder that is progressively worsened, worse when she gets up and moves around and does get better with rest. No recent stress test. Does have family history of heart disease. CT head negative, troponins negative and workup otherwise unremarkable. Hospitalist contacted for admission for chest pain ru leout. Patient evaluated at bedside and reports she is coming in for 2 reasons, the intermittent left arm and leg numbness and tingling and some left shoulder pain with some possible reflux-like symptoms. Patient reports that for several days she will get some numb and tingling feeling in her hand and below the knee on the left side that comes and goes does not seem to have any other associations, denies any recent falls or neck pain, did have a flareup of pain in her left knee for which she got a cortisone injection a week ago and that hasimproved. In regards to the concern for chest pain she reports she had some possible pressure-like sensation versus heartburn that has happened intermitte ntly as well as some left shoulder pain however even when she does nothave the heartburn the shoulder pain persists. Occasionally will feel lightheaded and dizzy with some nausea. Does report she hasa history of ulcersand has been on sucralfate for the past 1 year, denies any abdominal pain, not taking any ibuprofen. Does have a slight headache but reports she gets them when she has allergies and sinus problems which she reports has been present over the past week Neurologic History Started with L shoulder pain and pain in the chest. Then started having numbnessand tingling in theL arm and leg. Initially had some L pain in the jaw but not since. Nothing like this has happened before. No change in vision, did have nausea. No clumsiness, no difficulty walking. No headache with all this. Never had stroke, no hear conditions at baseline. On no blood thinners at home. No changesin sound of voice, difficulty getting words out etc. Patient is RH, no difficulty with maneuvering the L hand Chest pain was 4-5/10 and happened a couple times but not constant. Numbness andtingling in the rai legs ar intermittent but no patterns to the numbness butcoincide with pain in shoulder, numbness in the arms and legs, and chest pain coincide. No recent viral illness Neurologic Exam -? General: Laying comfortably in bed; in no acute distress. -? HENT: Normal oropharynx and mucosa. Normal external appearance of ears and nose. Exophthalmos. -? Neck: Supple, no pain or tenderness -? CV:? No peripheral edema. -? Pulmonary:? Normal respiratory effort. -? Ext: No cyanosis, edema, or deformity -? Skin: No rash. Normal palpation of skin.? -? Musculoskeletal: full range of motion; no joint tenderness. Normal digits and nails by inspection. No clubbing. -? NEURO: -? Mental Status: The patient was alert and oriented to time, place, andperson. Normal recent/remote memory, concentration, and general fund of knowledge. -? Language: speech is clear.? Naming, repetition, fluency, and comprehension intact. -? Cranial Nerves: PERRL4 mm/brisk. EOMI, visual jimenez full, slight L facail asymmetry that is baseline, facial sensation intact, hearing intact, tongue midline, no evidence of atrophy or fibrillations. -? Motor: normal bulk, tone, and strength throughout. No pronator drift or satelliting. Upper and lower extremities equal bilaterally. -? Detailed strength exam as performed by the nurse/ANDRE and witnessed bythe physician: l R L SA 5 5 EE 5 5 EF 5 5 WE WF Silverware Buffer 5 5 HF 5 5 KE KF 5 5 DF 5 5 PF Reflexes: biceps 1 1 patellar 2 2 -? Tone: is normal and bulk is normal -? Sensation- Intact to light touch bilaterally -? Coordination: No dysmetria on [id number], finger follow finger or [id number]. -? Gait- deferred [facility] Medical History Abdominal pain Fatty liver High [...] current alcohol intake frequency: holidays/special occasions only Vital Signs Vital Signs Vital Signs: 05/16/25 11:39 05/16/25 12:20 05/16/25 12:38 Temperature 98.1 F Temperature Source Oral Pulse Rate 82 72 Pulse Strength Respiratory Rate 19 H 14 Respiratory Effort Respiratory Depth Respiratory Pattern Blood Pressure 164/80 H 129/75 H Blood Pressure Mean 108 93 Blood Pressure Source Blood Pressure Position Blood Pressure Location Pulse Ox 100 99 99 Oxygen Delivery Method Room Air Room Air Room Air 05/16/25 13:00 05/16/25 14:00 05/16/25 14:55 Temperature 98.1 F Temperature Source Pulse Rate 65 62 72 Pulse Strength Respiratory Rate 14 14 18 Respiratory Effort Respiratory Depth Respiratory Pattern Blood Pressure 143/88 H 122/72 H 133/78 H Blood Pressure Mean 106 88 96 Blood Pressure Source Blood Pressure Position Blood Pressure Location Pulse Ox 99 100 99 Oxygen Delivery Method Room Air Room Air 05/16/25 16:00 05/16/25 16:42 05/16/25 17:57 Temperature 98.3 F Temperature Source Oral Pulse Rate 70 65 Pulse Strength Respiratory Rate 14 16 Respiratory Effort Respiratory Depth Respiratory Pattern Blood Pressure 141/85 H 152/76 H Blood Pressure Mean 103 101 Blood Pressure Source Monitor Blood Pressure Position Sitting Blood Pressure Location Left Arm Pulse Ox 99 98 93 Oxygen Delivery Method Room Air Room Air Room Air 05/16/25 19:47 05/16/25 19:47 05/16/25 20:45 Temperature 97.4 F L Temperature Source Temporal Pulse Rate 64 Pulse Strength Normal (2+) Respiratory Rate 18 Respiratory Effort Normal Non-Labored Respiratory Depth Normal Respiratory Pattern Normal Blood Pressure 117/69 Blood Pressure Mean 85 Blood Pressure Source Monitor Blood Pressure Position Semi-Fowlers Blood Pressure Location Left Arm Pulse Ox 98 Oxygen Delivery Method Room Air Room Air 05/17/25 00:45 05/17/25 00:45 05/17/25 05:00 Temperature 97.6 F L 97.7 F L Temperature Source Temporal Temporal Pulse Rate 62 64 Pulse Strength Respiratory Rate 16 18 Respiratory Effort Normal Non-Labored Respiratory Depth Normal Respiratory Pattern Normal Blood Pressure 111/59 L 131/72 H Blood Pressure Mean 76 91 Blood Pressure Source Monitor Monitor Blood Pressure Position Supine Semi-Fowlers Blood Pressure Location Left Arm Left Arm Pulse Ox 96 100 Oxygen Delivery Method Room Air Room Air Room Air 05/17/25 07:40 05/17/25 07:48 05/17/25 08:02 Temperature 97.4 F L Temperature Source Oral Pulse Rate 65 Pulse Strength Respiratory Rate 14 Respiratory Effort Normal Non-Labored Respiratory Depth Normal Respiratory Pattern Normal Blood Pressure 126/59 H Blood Pressure Mean 81 Blood Pressure Source Monitor Blood Pressure Position Semi-Fowlers Blood Pressure Location Left Arm Pulse Ox 97 95 Oxygen Delivery Method Room Air Room Air Room Air 05/17/25 08:02 05/17/25 10:00 Temperature 97.4 F L Temperature Source Oral Pulse Rate 65 Pulse Strength Normal (2+) Respiratory Rate 14 Respiratory Effort Respiratory Depth Respiratory Pattern Blood Pressure 126/59 H Blood Pressure Mean 81 Blood Pressure Source Monitor Blood Pressure Position Semi-Fowlers Blood Pressure Location Left Arm Pulse Ox 95 Oxygen Delivery Method Room Air Weight Weight: 75.1 kg Body Mass Index (BMI) 24.4 EEG Results Procedure Details EEG Procedure Details: QI PHILIPPE is a 60 year old F with a past medical history of , who presents for evaluationof Electroencephalogram on DATE at TIME Lab / Micro Data 05/17/25 05:45 05/17/25 05:45 Labs: Laboratory Results - last 24 hr 05/16/25 12:05: WBC 7.1, RBC 4.77, Hgb 13.8, Hct 41.2, MCV 86.4, MCH 28.9, MCHC 33.5, RDW Std Deviation 37.5, RDW Coeff of Ollie 11.9, Plt Count 328, MPV 9.9, Immature Gran % (Auto) 0.300, Neut % (Auto) 73.0 H, Lymph % (Auto) 20.8, Pickett % (Auto) 5.3, Eos % (Auto) 0.3, Baso % (Auto) 0.3, Absolute Neuts (auto) 5.2, Absolute Lymphs (auto) 1.48, Nucleated RBC % 0, Sodium 136, Potassium 3.6, Chloride 101, Carbon Dioxide 22.0, Anion Gap 13, BUN 13, Creatinine 0.74, Estim Creat Clear Calc 82.38, Est GFR(MDRD) Non-Af 91, BUN/Creatinine Ratio 16.9, Glucose 125 H, Calcium 9.6, Troponin T High Sens < 6 05/16/25 13:25: Troponin T Hi Sens 2 Hr < 6 05/16/25 16:34: Troponin T Hi Sens 4Hr < 6 05/16/25 19:52: POC Glucose 135 H 05/17/25 05:45: WBC 6.3, RBC 4.76, Hgb 13.8, Hct 41.6, MCV 87.4, MCH 29.0, MCHC 33.2, RDW Std Deviation 38.6, RDW Coeff of Ollie 12.0, Plt Count 341, MPV 9.9, Immature Gran % (Auto) 0.300, Neut % (Auto) 56.5, Lymph % (Auto) 32.5, Pickett % (Auto) 8.3, Eos % (Auto) 2.1, Baso % (Auto) 0.3, Absolute Neuts (auto) 3.6, Absolute Lymphs (auto) 2.05, Nucleated RBC % 0, Sodium 137, Potassium 3.6, Chloride 101,Carbon Dioxide 23.3, Anion Gap 13, BUN 12, Creatinine 0.80, Estim Creat Clear Calc 76.20, Est GFR (MDRD) Non-Af 83, BUN/Creatinine Ratio 15.3, Glucose 117 H, Hemoglobin A1c 6.2 H, Calcium 9.2, Magnesium 2.1, Total Bilirubin 0.55, AST 24, ALT 21, Alkaline Phosphatase 70, Total Protein 7.2, Albumin 4.6, Globulin 2.7, Albumin/Globulin Ratio 1.7, Triglycerides 114, Cholesterol 150, LDL Cholesterol, Calc 69, VLDL Cholesterol 23, HDL Cholesterol 58, Cholesterol/HDL Ratio 2.58, TSH 1.220 05/17/25 06:18: POC Glucose 117 H Imaging Radiology Impression Chest X-Ray 05/16/25 12:25 IMPRESSION: No acute process is identified in the chest. Reading Location: [facility] Brain CT 05/16/25 13:04 IMPRESSION: No acute intracranial pathology. Reading Location: [facility] Head/Neck CTA 05/16/25 16:41 IMPRESSION: 1. No hemodynamically significant narrowing or large vessel occlusion of the head or neck vasculature. 2. Solid pulmonary nodule in the left upper lobe measuring 8 mm. Recommend dedicated chest CT. 3. Thyroid nodules measuring up to 1.6 cm. Recommend thyroid ultrasound. 4. Right-sided aortic arch. Reading Location: [id number] Active Medications Active Medications Active Medications: Current Medications Generic Name Dose Route Start Last Admin Trade Name Freq PRN Reason Stop Dose Admin Acetaminophen 650 mg 05/16/25 16:41 05/16/25 19:47 Acetaminophen 325 Mg Tablet PO 650 mg Q6H PRN PRN Administration Pain 1-10 Or Fever >100.7 Albuterol Sulfate 2.5 mg 05/16/25 16:41 Albuterol 2.5 Mg/3 Ml Vial.Neb. INHALATION Q2H PRN PRN SOB &/OR WHEEZING Aspirin 81 mg 05/17/25 08:00 05/17/25 06:20 Aspirin E.C. 81 Mg Tablet PO 81 mg BREAKFAST DAX Administration Atorvastatin Calcium 80 mg 05/16/25 22:00 05/16/25 19:47 Atorvastatin Calcium 80 Mg Tablet PO 80 mg QHS DAX Administration Enoxaparin Sodium 40 mg 05/17/25 10:00 Enoxaparin 40 Mg/0.4 Ml Syringe SC DAILY DAX Glucagon 1 mg 05/16/25 16:41 Glucagon 1 Mg/Ml Syringe IM X1 PRN Hypoglycemia Protocol Hydralazine HCl 5 mg 05/16/25 17:23 Hydralazine 20 Mg/Ml Vial IV 05/17/25 17:27 Q30M PRN maintain BP parameters with HR <60 Hydrochlorothiazide 25 mg 05/17/25 10:00 05/17/25 11:06 Hydrochlorothiazide 25 Mg Tablet PO Not Given DAILY DAX Protocol Sodium Chloride 1,000 mls @ 50 mls/hr 05/16/25 16:41 05/16/25 19:48 IV 05/17/25 12:40 50 mls/hr .Q20H DAX Administration Dextrose 250 mls @ 0 mls/hr 05/16/25 16:41 Dextrose 10%-Water IV .Q0M PRN HYPOGLYCEMIA Protocol As Directed Sodium Chloride 250 mls @ 15 mls/hr 05/16/25 16:43 IV .[id number] PRN Saline Flush Insulin Human Lispro 0 unit 05/16/25 22:00 05/17/25 06:22 Insulin Lispro 100 Unit/Ml Insuln.Pen SC Not Given ACHS DAX Protocol Labetalol HCl 10 - 20 mg 05/16/25 17:23 Labetalol 20 Mg/4 Ml Vial IV 05/17/25 17:27 Q10M PRN PRN maintain BP parameters with HR >/=60 Lisinopril 20 mg 05/17/25 10:00 05/17/25 06:20 Lisinopril 20 Mg Tablet PO 20 mg DAILY DAX Administration Protocol Melatonin 10 mg 05/16/25 16:41 Melatonin 3 Mg Tablet PO QHS PRN PRN INSOMNIA Ondansetron HCl 4 mg 05/16/25 16:41 Ondansetron 4 Mg/2 Ml Vial IV Q8H PRN PRN NAUSEA/VOMITING Pantoprazole Sodium 40 mg 05/17/25 10:00 05/17/25 11:07 Pantoprazole Sodium 40 Mg Tablet PO Not Given DAILY DAX Senna/Docusate Sodium 2 tablet 05/16/25 16:41 Senna/Docusate Sodium 1 Tablet PO BID PRN PRN Constipation Sodium Chloride 10 - 40 ml 05/16/25 16:43 05/17/25 06:22 0.9% Saline Lock 10 Ml Syringe IV 10 ml UD PRN Administration SALINE FLUSH Sucralfate 1 gm 05/17/25 07:00 05/17/25 06:22 Sucralfate 1 Gm Tablet PO Not Given TID@0700,1100,1600 [facility] NIHSS NIHSS Nursing Documentation NIHSS Nursing Documentation: NIHSS: Ischemic Stroke/TIA Start: 05/16/25 17:27 Text: For PCU Patients: NIH and Neuro Check every 4 Status: Active hours, PRN and with change in RN caregiver. Freq: [id number] Protocol: Activity Type Activity Date Activity User E-sign Co-sign Detail Recorded Client Recorded Date Recorded By Document 05/17/25 08:03 LING [id number] 05/17/25 08:07 LING 05/17/25 08:03 NIH Stroke Scale [NIHSS] A score of 0 is normal or asymptomatic . Total possible score is 42. Inpatient: RN or Physician to activate a stroke alert for onset of new stroke symptoms or with NIHSS increase >/= 3 points. Following change in neurological status, NIHSS will be performed per physician order or more frequently PRN. -1a. Level of Consciousness 0 - Alert; keenly responsive -1b. LOC Questions 0 - Answers BOTH questions correctly -1c. LOC Commands 0 - Performs BOTH tasks correctly -2. Best Gaze 0 - Normal -3. Visual 0 - No visual loss -4. Facial Palsy 0 - Normal symmetrical movements -5a. Left Arm 0 - No drift; arm holds 90 ( or 45) degrees for full 10 seconds -5b. Right Arm 0 - No drift; arm holds 90 ( or 45) degrees for full 10 seconds -6a. Left Leg 0 - No drift; leg holds 30- degree position for full 5 seconds -6b. Right Leg 0 - No drift; leg holds 30- degree position for full 5 seconds -7. Limb Ataxia 0 - Absent -8. Sensory 0 - Normal; no sensory loss -9. Best Language 0 - No aphasia; normal -10. Dysarthria 0 - Normal -11. Extinction and Inattention 0 - No abnormality -Total 0 Query Text:A score of 0 is normal or asymptomatic. Total possible score is 42 . ED: Notify Physician for NIHSS increase by > / = 3 points. Inpatient: RN or Physician to activate a stroke alert for NIHSS increase of > / = 3 points. Coma Scale [Assess] -Eye Opening Spontaneous -Motor Obeys Commands -Verbal Oriented [Total] -Coma Scale Total 15 05/17/25 1226 Cosigner Signature (if applicable): CC: Dr. Bret Gomez MD~ Signed [facility]06-24-2025 Progress note Author Bret Cisneros [facility] Note Date/Time May 17, 2025 4:03 pm [facility] Medical Records Department [address] [place] [address] Progress Note - Hospitalist 05/17/25 0945 MR#: [id number] Acct: [id number] Name: QI PHILIPPE Rep #:[id number] : 1965 60 From: Bret Cisneros DO PCP: Dr. Bret Gomez MD Status:ADM JAZMIN Location: [place] [address] Reason for Visit Reason for Visit: Diagnoses Chest pain, unspecified (05/16/25) Subjective Subjective No further chest pain. Still having intermittent paresthesias on her left. Very anxious about the MRI. Objective Data Objective Data Vital Signs: Vital Signs Temp Pulse Resp BP Pulse Ox O2 Del Method 36.3 C L 65 14 126/59 H 95 Room Air 05/17/25 08:02 05/17/25 08:02 05/17/25 08:02 05/17/25 08:02 05/17/25 08:02 05/17/25 08:02 Oxygen Delivery Method Room Air Weight: 75.1 kg Body Mass Index (BMI) 24.4 Lab / Micro Data 05/17/25 05:45 05/17/25 05:45 Labs: Laboratory Results - last 24 hr 05/16/25 12:05: WBC 7.1, RBC 4.77, Hgb 13.8, Hct 41.2, MCV 86.4, MCH 28.9, MCHC 33.5, RDW Std Deviation 37.5, RDW Coeff of Ollie 11.9, Plt Count 328, MPV 9.9, Immature Gran % (Auto) 0.300, Neut % (Auto) 73.0 H, Lymph % (Auto) 20.8, Pickett % (Auto) 5.3, Eos % (Auto) 0.3, Baso % (Auto) 0.3, Absolute Neuts (auto) 5.2, Absolute Lymphs (auto) 1.48, Nucleated RBC % 0, Sodium 136, Potassium 3.6, Chloride 101, Carbon Dioxide 22.0, Anion Gap 13, BUN 13, Creatinine 0.74, Estim Creat Clear Calc 82.38, Est GFR (MDRD) Non-Af 91, BUN/Creatinine Ratio 16.9, Glucose 125 H, Calcium 9.6, Troponin T High Sens < 6 05/16/25 13:25: Troponin T Hi Sens 2 Hr < 6 05/16/25 16:34: Troponin T Hi Sens 4Hr < 6 05/16/25 19:52: POC Glucose 135 H 05/17/25 05:45: WBC 6.3, RBC 4.76, Hgb 13.8, Hct 41.6, MCV 87.4, MCH 29.0, MCHC 33.2, RDW Std Deviation 38.6, RDW Coeff of Ollie 12.0, Plt Count 341, MPV 9.9, Immature Gran % (Auto) 0.300, Neut % (Auto) 56.5, Lymph % (Auto) 32.5, Pickett % (Auto) 8.3, Eos % (Auto) 2.1, Baso % (Auto) 0.3, Absolute Neuts (auto) 3.6, Absolute Lymphs (auto) 2.05, Nucleated RBC % 0, Sodium 137, Potassium 3.6, Chloride 101, Carbon Dioxide 23.3, Anion Gap 13, BUN 12, Creatinine 0.80, Estim Creat Clear Calc 76.20, Est GFR (MDRD) Non-Af 83, BUN/Creatinine Ratio 15.3, Glucose 117 H, Hemoglobin A1c 6.2 H, Calcium 9.2, Magnesium 2.1, Total Bilirubin 0.55, AST 24, ALT 21, Alkaline Phosphatase 70, Total Protein 7.2, Albumin 4.6, Globulin 2.7, Albumin/Globulin Ratio 1.7, Triglycerides 114, Cholesterol 150, LDL Cholesterol, Calc 69, VLDL Cholesterol 23, HDL Cholesterol 58, Cholesterol/HDL Ratio 2.58, TSH 1.220 05/17/25 06:18: POC Glucose 117 H Radiography Diagnostic Testing: Radiology Impression Chest X-Ray 05/16/25 12:25 IMPRESSION: No acute process is identified in the chest. Reading Location: [facility] Brain CT 05/16/25 13:04 IMPRESSION: No acute intracranial pathology. Reading Location: [facility] Head/Neck CTA 05/16/25 16:41 IMPRESSION: 1. No hemodynamically significant narrowing or large vessel occlusion of the head or neck vasculature. 2. Solid pulmonary nodule in the left upper lobe measuring 8 mm. Recommend dedicated chest CT. 3. Thyroid nodules measuring up to 1.6 cm. Recommend thyroid ultrasound. 4. Right-sided aortic arch. Reading Location: [id number] Physical Exam Const alert and no apparent distress HEENT head/scalp atraumatic and moist oral mucous membranes Resp normal respiratory effort, no retractions, no use of accessory muscles and clearto auscultation bilaterally Cardio regular rate, regular rhythm, S1 normal heart sound and S2 normal heart sound GI normal to inspection, nondistended, normoactive bowel sounds, soft to palpation,non-tender and non-distended Extremity normal to inspection and no clubbing, cyanosis or edema Neuro oriented x3, CN's II-XII intact bilaterally, moves all extremities, no focal motor deficits and no sensory deficits noted Sensorium / Orientation: awake and alert Coordination / Balance: dencln-qh-rqdb test normal and paqp-ln-joym test normal Speech: speech normal Assessment & Plan Assessment/Plan (1) Chest pain: PLAN: Stress test negative. No additional workup. (2) Paresthesia of left upper and lower extremity: PLAN: CTA head a neck was unremarkable. Head CT negative. Discussed with neurology who recommends an MRI of the brain and MRI of the cervical spine with and without contrast. Patient has extreme apprehension about the MRI just feeling and close due to her agoraphobia. Tried to reassure her that she has staff nearby to quickly help if she has any issues but try to reassure her that this test though 40 to 60 minutes will give us a clear pictureabout what may or may not be going on with her. Did tell her that we would giveher some Ativan which she was receptive to for the having the MRI. Explained toher that if she is unable to have the MRI then we can check a CAT scan of her neck but an MRI would be certainly more preferable. PLAN: Plan Pulmonary nodule: outpt CT Thryoid nodule: outpt US. DM2: metformin held given CTA. SSI. a1c 6.2. HTN: lisinopril HCTZ. VTE prophylaxis: LMWH. Charges/Coding Visit Charges Inpatient E&M: 63699 Subs Hosp L2 NIHSS NIHSS Nursing Documentation NIHSS Nursing Documentation: NIHSS: Ischemic Stroke/TIA Start: 05/16/25 17:27 Text: For PCU Patients: NIH and Neuro Check every 4 Status: Active hours, PRN and with change in RN caregiver. Freq: [id number] Protocol: Activity Type Activity Date Activity User E-sign Co-sign Detail Recorded Client Recorded Date Recorded By Document 05/17/25 08:03 LING [id number] 05/17/25 08:07 LING 05/17/25 08:03 NIH Stroke Scale [NIHSS] A score of 0 is normal or asymptomatic . Total possible score is 42. Inpatient: RN or Physician to activate a stroke alert for onset of new stroke symptoms or with NIHSS increase >/= 3 points. Following change in neurological status, NIHSS will be performed per physician order or more frequently PRN. -1a. Level of Consciousness 0 - Alert; keenly responsive -1b. LOC Questions 0 - Answers BOTH questions correctly -1c. LOC Commands 0 - Performs BOTH tasks correctly -2. Best Gaze 0 - Normal -3. Visual 0 - No visual loss -4. Facial Palsy 0 - Normal symmetrical movements -5a. Left Arm 0 - No drift; arm holds 90 ( or 45) degrees for full 10 seconds -5b. Right Arm 0 - No drift; arm holds 90 ( or 45) degrees for full 10 seconds -6a. Left Leg 0 - No drift; leg holds 30- degree position for full 5 seconds -6b. Right Leg 0 - No drift; leg holds 30- degree position for full 5 seconds -7. Limb Ataxia 0 - Absent -8. Sensory 0 - Normal; no sensory loss -9. Best Language 0 - No aphasia; normal -10. Dysarthria 0 - Normal -11. Extinction and Inattention 0 - No abnormality -Total 0 Query Text:A score of 0 is normal or asymptomatic. Total possible score is 42 . ED: Notify Physician for NIHSS increase by > / = 3 points. Inpatient: RN or Physician to activate a stroke alert for NIHSS increase of > / = 3 points. Coma Scale [Assess] -Eye Opening Spontaneous -Motor Obeys Commands -Verbal Oriented [Total] -Coma Scale Total 15 05/17/25 1603 <Electronically signed by Bret Cisneros DO> Cosigner Signature (if applicable): CC: ~ Signed [facility] Work Phone: [phone] Progress note [facility] Medical Records Department [address] [place] [address] Progress Note - Hospitalist 05/17/25 0945 MR#: [id number] Acct: [id number] Name: QI PHILIPPE Rep #:[id number] : 1965 60 From: Bret Cisneros DO PCP: Dr. Bret Gomez MD Status:ADM JAZMIN Location: [place] [address] Reason for Visit Reason for Visit: Diagnoses Chest pain, unspecified (05/16/25) Subjective Subjective No further chest pain. Still having intermittent paresthesias on her left. Very anxious about the MRI. Objective Data Objective Data Vital Signs: Vital Signs Temp Pulse Resp BP Pulse Ox O2 Del Method 36.3 C L 65 14 126/59 H 95 Room Air 05/17/25 08:02 05/17/25 08:02 05/17/25 08:02 05/17/25 08:02 05/17/25 08:02 05/17/25 08:02 Oxygen Delivery Method Room Air Weight: 75.1 kg Body Mass Index (BMI) 24.4 Lab / Micro Data 05/17/25 05:45 05/17/25 05:45 Labs: Laboratory Results - last 24 hr 05/16/25 12:05: WBC 7.1, RBC 4.77, Hgb 13.8, Hct 41.2, MCV 86.4, MCH 28.9, MCHC 33.5, RDW Std Deviation 37.5, RDW Coeff of Ollie 11.9, Plt Count 328, MPV 9.9, Immature Gran % (Auto) 0.300, Neut % (Auto) 73.0 H, Lymph % (Auto) 20.8, Pickett % (Auto) 5.3, Eos % (Auto) 0.3, Baso % (Auto) 0.3, Absolute Neuts (auto) 5.2, Absolute Lymphs (auto) 1.48, Nucleated RBC % 0, Sodium 136, Potassium 3.6, Chloride 101, Carbon Dioxide 22.0, Anion Gap 13, BUN 13, Creatinine 0.74, Estim Creat Clear Calc 82.38, Est GFR(MDRD) Non-Af 91, BUN/Creatinine Ratio 16.9, Glucose 125 H, Calcium 9.6, Troponin T High Sens < 6 05/16/25 13:25: Troponin T Hi Sens 2 Hr < 6 05/16/25 16:34: Troponin T Hi Sens 4Hr < 6 05/16/25 19:52: POC Glucose 135 H 05/17/25 05:45: WBC 6.3, RBC 4.76, Hgb 13.8, Hct 41.6, MCV 87.4, MCH 29.0, MCHC 33.2, RDW Std Deviation 38.6, RDW Coeff of Ollie 12.0, Plt Count 341, MPV 9.9, Immature Gran % (Auto) 0.300, Neut % (Auto) 56.5, Lymph % (Auto) 32.5, Pickett % (Auto) 8.3, Eos % (Auto) 2.1, Baso % (Auto) 0.3, Absolute Neuts (auto) 3.6, Absolute Lymphs (auto) 2.05, Nucleated RBC % 0, Sodium 137, Potassium 3.6, Chloride 101,Carbon Dioxide 23.3, Anion Gap 13, BUN 12, Creatinine 0.80, Estim Creat Clear Calc 76.20, Est GFR (MDRD) Non-Af 83, BUN/Creatinine Ratio 15.3, Glucose 117 H, Hemoglobin A1c 6.2 H, Calcium 9.2, Magnesium 2.1, Total Bilirubin 0.55, AST 24, ALT 21, Alkaline Phosphatase 70, Total Protein 7.2, Albumin 4.6, Globulin 2.7, Albumin/Globulin Ratio 1.7, Triglycerides 114, Cholesterol 150, LDL Cholesterol, Calc 69, VLDL Cholesterol 23, HDL Cholesterol 58, Cholesterol/HDL Ratio 2.58, TSH 1.220 05/17/25 06:18: POC Glucose 117 H Radiography Diagnostic Testing: Radiology Impression Chest X-Ray 05/16/25 12:25 IMPRESSION: No acute process is identified in the chest. Reading [facility] 05/16/25 13:04 IMPRESSION: No acute intracranial pathology. Reading Location[facility] Head/Neck CTA 05/16/25 16:41 IMPRESSION: 1. No hemodynamically significant narrowing or large vessel occlusion of the head or neck vasculature. 2. Solid pulmonary nodule in the left upper lobe measuring 8 mm. Recommend dedicated chest CT. 3. Thyroid nodules measuring up to 1.6 cm. Recommend thyroid ultrasound. 4. Right-sided aortic arch. Reading Location: [id number] Physical Exam Const alert and no apparent distress HEENT head/scalp atraumatic and moist oral mucous membranes Resp normal respiratory effort, no retractions, no use of accessory muscles and clearto auscultation bilaterally Cardio regular rate, regular rhythm, S1 normal heart sound and S2 normal heart sound GI normal to inspection, nondistended, normoactive bowel sounds, soft to palpation,non-tender and non-distended Extremity normal to inspection and no clubbing, cyanosis or edema Neuro oriented x3, CN's II-XII intact bilaterally, moves all extremities, no focal motor deficits and no sensory deficits noted Sensorium / Orientation: awake and alert Coordination / Balance: ahvnxk-iy-[id number] test normal and exia-mj-aoqv test normal Speech: speech normal Assessment & Plan Assessment/Plan (1) Chest pain: PLAN: Stress test negative. No additional workup. (2) Paresthesia of left upper and lower extremity: PLAN: CTA head a neck was unremarkable. Head CT negative. Discussed with neurology who recommends an MRI of the brain and MRI of the cervical spine with and without contrast. Patient has extreme apprehension about the MRI just feeling and close due to her agoraphobia. Tried to reassure her that she has staff nearby to quickly help if she has any issues but try to reassure her that this test though 40 to 60 minutes will give us a clear pictureabout what may or may not be going on with her. Did tell her that we would giveher some Ativan which she was receptive to for the having the MRI. Explained toher that if she is unable to have the MRI then we cancheck a CAT scan of her neck but an MRI would be certainly more preferable. PLAN: Plan Pulmonary nodule: outpt CT Thryoid nodule: outpt US. DM2: metformin held given CTA. SSI. a1c 6.2. HTN: lisinopril HCTZ. VTE prophylaxis: LMWH. Charges/Coding Visit Charges Inpatient E&M: 33280 Subs Hosp L2 NIHSS NIHSS Nursing Documentation NIHSS Nursing Documentation: NIHSS: Ischemic Stroke/TIA Start: 05/16/25 17:27 Text: For PCU Patients: NIH and Neuro Check every 4 Status: Active hours, PRN and with change in RN caregiver. Freq: [id number] Protocol: Activity Type Activity Date Activity User E-sign Co-sign Detail Recorded Client Recorded Date Recorded By Document 05/17/25 08:03 LING [id number] 05/17/25 08:07 LING 05/17/25 08:03 NIH Stroke Scale [NIHSS] A score of 0 is normal or asymptomatic . Total possible score is 42. Inpatient: RN or Physician to activate a stroke alert for onset of new stroke symptoms or with NIHSS increase >/= 3 points. Following change in neurological status, NIHSS will be performed per physician order or more frequently PRN. -1a. Level of Consciousness 0 - Alert; keenly responsive -1b. LOC Questions 0 - Answers BOTH questions correctly -1c. LOC Commands 0 - Performs BOTH tasks correctly -2. Best Gaze 0 - Normal -3. Visual 0 - No visual loss -4. Facial Palsy 0 - Normal symmetrical movements -5a. Left Arm 0 - No drift; arm holds 90 ( or 45) degrees for full 10 seconds -5b. Right Arm 0 - No drift; arm holds 90 ( or 45) degrees for full 10 seconds -6a. Left Leg 0 - No drift; leg holds 30- degree position for full 5 seconds -6b. Right Leg 0 - No drift; leg holds 30- degree position for full 5 seconds -7. Limb Ataxia 0 - Absent -8. Sensory 0 - Normal; no sensory loss -9. Best Language 0 - No aphasia; normal -10. Dysarthria 0 - Normal -11. Extinction and Inattention 0 - No abnormality -Total 0 Query Text:A score of 0 is normal or asymptomatic. Total possible score is 42 . ED: Notify Physician for NIHSS increase by > / = 3 points. Inpatient: RN or Physician to activate a stroke alert for NIHSS increase of > / = 3 points. Coma Scale [Assess] -Eye Opening Spontaneous -Motor Obeys Commands -Verbal Oriented [Total] -Coma Scale Total 15 05/17/25 1603 Cosigner Signature (if applicable): CC: ~ Signed [facility]06-23-2025 History and physical note Author Marilin Yuen [facility] Note Date/Time May 16, 2025 5:31 pm [facility] Medical Records Department [address] [place] [address] H&P Exam - Hospitalist 05/16/25 1600 MR#: [id number] Acct: [id number] Name: QI PHILIPPE Rep #:[id number] : 1965 60 From: Marilin Yuen MD PCP: Dr. Bret Gomez MD Status:ADM JAZMIN Location: [place] [address] HPI - General General Date of Admission: 05/16/25 Date of Service: 05/16/25 Chief Complaint: Chest pain and left sided numbness and tingling HPI Narrative QI PHILIPPE, is a 60-year-old female history of depression, anxiety, GERD, hypertension, diabetes who presented [facility] ED 05/16/2025 forchest pain, nausea, numbness and tingling in the left arm and lower extremity. Reportedly her chest pain and numbness and tingling have been going on for several days, the chest pain has been on the left side of her chest towards her left shoulder that is progressively worsened, worse when she gets up and moves around and does get better with rest. No recent stress test. Does have family history of heart disease. CT head negative, troponins negative and workup otherwise unremarkable. Hospitalist contacted for admission for chest pain ruleout. Patient evaluated at bedside and reports she is coming in for 2 reasons, the intermittent left arm and leg numbness and tingling and some left shoulder pain with some possible reflux-like symptoms. Patient reports that for several days she will get some numb and tingling feeling in her hand and below the knee on the left side that comes and goes does not seem to have any other associations, denies any recent falls or neck pain, did have a flareup of pain in her left knee for which she got a cortisone injection a week ago and that hasimproved. In regards to the concern for chest pain she reports she had some possible pressure-like sensation versus heartburn that has happened intermittently as well as some left shoulder pain however even when she does nothave the heartburn the shoulder pain persists. Occasionally will feel lightheaded and dizzy with some nausea. Does report she has a history of ulcersand has been on sucralfate for the past 1 year, denies any abdominal pain, not taking any ibuprofen. Does have a slight headache but reports she gets them when she has allergies and sinus problems which she reports has been present over the past week [facility] Medical History Abdominal pain Fatty liver High [...] intake frequency: holidays/special occasions only ROS ROS Narrative General: Denies fever/chills HENT: Little bit of a headache and allergy symptoms, denies anything unusual forher EYES: Denies changes in vision Resp: Denies cough, denies shortness of breath Cardiac: Pleth some epigastric burning or pressure intermittently GI: Denies abdominal pain, denies changes in bowel, occasionally will get some nausea : Denies changes in urination Extremity: Denies swelling MSK: Denies weakness Neuro: Intermittent numbness and tingling in left hand and left leg below the knee Heme: Denies any bleeding or bruising Skin: Denies rashes Psychiatric: No complaints voiced Vital Signs Vital Signs Vital Signs: 05/16/25 11:39 05/16/25 12:20 05/16/25 [...] Oxygen Delivery Method Room Air Room Air Weight Weight: 76.476 kg Body Mass Index (BMI) 24.9 Physical Exam Narrative General: Alert, oriented, no apparent distress HEENT: Atraumatic, normocephalic Eyes: Anicteric, normal conjunctiva, extraocular movements intact, pupils equal Neck: Supple Respiratory: Clear to auscultation bilaterally, normal respiratory effort Cardiovascular: Regular rate and rhythm GI: Soft, nontender, nondistended Extremities: No edema Musculoskeletal: Strength 5 out of 5 in right upper extremity, 5 out of 5 left upper extremity, 5 out of 5 right lower extremity, 5 out of 5 left lower extremity Neuro: No overt focal neurological deficits, cranial nerves II through XII intact, [id number] without significant difficulty bilaterally Skin: No rashes appreciated Psych: Cooperative Results Lab / Micro Data 05/16/25 12:05 05/16/25 12:05 Labs: Laboratory Results - last 24 hr 05/16/25 12:05: WBC 7.1, RBC 4.77, Hgb 13.8, Hct 41.2, MCV 86.4, MCH 28.9, MCHC 33.5, RDW Std Deviation 37.5, RDW Coeff of Ollie 11.9, Plt Count 328, MPV 9.9, Immature Gran % (Auto) 0.300, Neut % (Auto) 73.0 H, Lymph % (Auto) 20.8, Pickett % (Auto) 5.3, Eos % (Auto) 0.3, Baso % (Auto) 0.3, Absolute Neuts (auto) 5.2, Absolute Lymphs (auto) 1.48, Nucleated RBC % 0, Sodium 136, Potassium 3.6, Chloride 101, Carbon Dioxide 22.0, Anion Gap 13, BUN 13, Creatinine 0.74, Estim Creat Clear Calc 82.38, Est GFR (MDRD) Non-Af 91, BUN/Creatinine Ratio 16.9, Glucose 125 H, Calcium 9.6, Troponin T High Sens < 6 05/16/25 13:25: Troponin T Hi Sens 2 Hr < 6 Imaging Radiology Impression Chest X-Ray 05/16/25 12:25 IMPRESSION: No acute process is identified in the chest. Reading Location: [facility] Brain CT 05/16/25 13:04 IMPRESSION: No acute intracranial pathology. Reading Location: [facility] Assessment & Plan Assessment/Plan (1) Chest pain: PLAN: Plan #Chest pain -EKG with a rate of 72 and nonspecific changes but without any depressions or elevations in ST segment -Trop negative x 2 -Admit to telemetry -Echo ordered -Aspirin -Statin -Lipid panel in AM -Stress test ordered for AM #Left sided numbness and tingling -Admit to tele - Patient reports intermittent left arm and leg numbness and tingling but it seems to be at random and is usually just below the knee on the left side and not her whole leg or necessarily her whole arm, CT head unremarkable, discussed doing MRI of brain and C-spine for further evaluation given the unusual symptomshowever patient reports she does very very poorly with MRIs, offered medicine tohelp with anxiety and patient declined - Will obtain CTA head and neck to see if there is anything hemodynamically significant that could be contributing - If symptoms persist could consider MRI in the a.m. if patient does become agreeable - Symptoms are waxing and waning at random with varying amount of each limb affected each time, neuroexam completely normal and thus far imaging within normal limits however given these complaints will concomitantly undergo TIA workup -NIH q4hr -asa, statin as above -Echo as above -PT/OT/Speech eval -Teleneuro consult ordered #Hypertension - Continue medications #GERD -Continue PPI #Type 2 diabetes mellitus -Glucose checks and sliding scale insulin #Hx gastric ulcers -Cont home sucralfate #DVT ppx: Lovenox subcu Marilin Yuen MD Charges/Coding Visit Charges Inpatient E&M: 75612 Init Hosp L2 05/16/25 1731 <Electronically signed by Marilin Yuen MD> Cosigner Signature (if applicable): CC: Dr. Bret Gomez MD; Dr. Marilin Yuen MD~ Signed [facility] Work Phone: [phone] Radiology Diagnostic study note [facility] Imaging Services [address] [place] [address] CTA Head AND Neck W/ Contrast MR#: [id number] Acct: [id number] Name: QI PHILIPPE Rep #: [id number] : 1965 F 60 From: Danette Jiménez MD PCP: Dr. Bret Gomez MD Status: ADM JAZMIN Study:CTA Head AND Neck W/ Contrast Date of E xam: 05/16/25 Exam# [id number] Ordering Dr: Duane Yuen MD PROCEDURE: CTA HEAD AND NECK W/ CONTRAST 05/16/2025 REASON FOR EXAM: INTERMITTENT NUMBNESS AND TINGLING IN LEFT SIDE TECHNIQUE: CTA HEAD AND NECK W/ CONTRAST Multiplanar Sagittal and Coronal images were obtained. 3D post processing was performed CONTRAST: 100 mL Isovue 370 One or more dose reduction techniques were used (e.g., Automated exposure control, adjustment of the mA and/or kV according to patient size, use of iterative reconstruction technique). RADIATION DOSE SUMMARY: CTDlvol: 17.6 mGy DLP: 709 mGycm COMPARISON: Same date CT head FINDINGS: Aortic Arch: Incidental note of a right aortic arch, with minimal atherosclerosis. Brachiocephalic and Subclavians: Unremarkable RIGHT Carotid: Right CCA: Unremarkable. Right ICA: Unremarkable. Maximum stenosis (NASCET): <50 % Right ECA: Unremarkable. LEFT Carotid: Left CCA: Trace calcified atherosclerosis at the carotid bulb. Left ICA: Unremarkable. Maximum stenosis (NASCET): <50 % Left ECA: Unremarkable. Vertebrals: Codominant. Arise from the subclavians. Both vertebrals form the basilar. RIGHT Vertebral: Unremarkable. LEFT Vertebral: Unremarkable. Anatomy: [place] anatomy is normal. Aneurysm or AVM: No intracranial aneurysms or large vascular malformations are identified. Anterior cerebral arteries: Unremarkable: Middle cerebral arteries: Unremarkable. Basilar artery: Unremarkable. Posterior cerebral arteries: Unremarkable. Other major branches of the posterior circulation: Unremarkable. Major venous structures: Unremarkable. Other findings: Neck: There are thyroid nodules measuring up to 1.6 cm in the left lobe (series 2, image 111). No lymphadenopathy. Lungs: Solid nodule in the left upper lobe measuring 8 mm (series 2, image 47). Bones: Degenerative changes. CT/CTA Head AND Neck W/ Contrast IMPRESSION: 1. No hemodynamically significant narrowing or large vessel occlusion of the head or neck vasculature. 2. Solid pulmonary nodule in the left upper lobe measuring 8 mm. Recommend dedicated chest CT. 3. Thyroid nodules measuring up to 1.6 cm. Recommend thyroid ultrasound. 4. Right-sided aortic arch. Reading Location: [id number] CC: Dr. Bret Gomez MD; Dr. Marilin Yuen MD ~ Client Manager Large Law: Signed [facility]06-23-2025 History and physical note [facility] Medical Records Department [address] [place] [address] H&P Exam - Hospitalist 05/16/25 1600 MR#: [id number] Acct: [id number] Name: QI PHILIPPE Rep #:[id number] : 1965 60 From: Marilin Yuen MD PCP: Dr. Bret Gomez MD Status:ADM JAZMIN Location: [place] [address] HPI - General General Date of Admission: 05/16/25 Date of Service: 05/16/25 Chief Complaint: Chest pain and left sided numbness and tingling HPI Narrative QI PHILIPPE, is a 60-year-old female history of depression, anxiety, GERD, hypertension, diabetes who presented [facility] ED 05/16/2025 forchest pain, nausea, numbness and tinglingin the left arm and lower extremity. Reportedly her chest pain and numbness and tingling have been going on for several days, the chest pain has been on the left side of her chest towards her left shoulder that is progressively worsened, worse when she gets up and moves around and does get better with rest. No recent stress test. Does have family history of heart disease. CT head negative, troponins negative and workup otherwise unremarkable. Hospitalist contacted for admission for chest pain ru leout. Patient evaluated at bedside and reports she is coming in for 2 reasons, the intermittent left arm and leg numbness and tingling and some left shoulder pain with some possible reflux-like symptoms. Patient reports that for several days she will get some numb and tingling feeling in her hand and below the knee on the left side that comes and goes does not seem to have any other associations, denies any recent falls or neck pain, did have a flareup of pain in her left knee for which she got a cortisone injection a week ago and that hasimproved. In regards to the concern for chest pain she reports she had some possible pressure-like sensation versus heartburn that has happened intermitte ntly as well as some left shoulder pain however even when she does nothave the heartburn the shoulder pain persists. Occasionally will feel lightheaded and dizzy with some nausea. Does report she hasa history of ulcersand has been on sucralfate for the past 1 year, denies any abdominal pain, not taking any ibuprofen. Does have a slight headache but reports she gets them when she has allergies and sinus problems which she reports has been present over the past week [facility] Medical History Abdominal pain Fatty liver High [...] intake frequency: holidays/special occasions only ROS ROS Narrative General: Denies fever/chills HENT: Little bit of a headache and allergy symptoms, denies anything unusual forher EYES: Denies changes in vision Resp: Denies cough, denies shortness of breath Cardiac: Pleth some epigastric burning or pressure intermittently GI: Denies abdominal pain, denies changes in bowel, occasionally will get some nausea : Denies changes in urination Extremity: Denies swelling MSK: Denies weakness Neuro: Intermittent numbness and tingling in left hand and left leg below the knee Heme: Denies any bleeding or bruising Skin: Denies rashes Psychiatric: No complaints voiced Vital Signs Vital Signs Vital Signs: 05/16/25 11:39 05/16/25 12:20 05/16/25 [...] Oxygen Delivery Method Room Air Room Air Weight Weight: 76.476 kg Body Mass Index (BMI) 24.9 Physical Exam Narrative General: Alert, oriented, no apparent distress HEENT: Atraumatic, normocephalic Eyes: Anicteric, normal conjunctiva, extraocular movements intact, pupils equal Neck: Supple Respiratory: Clear to auscultation bilaterally, normal respiratory effort Cardiovascular: Regular rate and rhythm GI: Soft, nontender, nondistended Extremities: No edema Musculoskeletal: Strength 5 out of 5 in right upper extremity, 5 out of 5 left upper extremity, 5 out of 5 right lower extremity, 5 out of 5 left lower extremity Neuro: No overt focal neurological deficits, cranial nerves II through XII intact, vbfrlt-[id number] without significant difficulty bilaterally Skin: No rashes appreciated Psych: Cooperative Results Lab / Micro Data 05/16/25 12:05 05/16/25 12:05 Labs: Laboratory Results - last 24 hr 05/16/25 12:05: WBC 7.1, RBC 4.77, Hgb 13.8, Hct 41.2, MCV 86.4, MCH 28.9, MCHC 33.5, RDW Std Deviation 37.5, RDW Coeff of Ollie 11.9, Plt Count 328, MPV 9.9, Immature Gran % (Auto) 0.300, Neut % (Auto) 73.0 H, Lymph % (Auto) 20.8, Pickett % (Auto) 5.3, Eos % (Auto) 0.3, Baso % (Auto) 0.3, Absolute Neuts (auto) 5.2, Absolute Lymphs (auto) 1.48, Nucleated RBC % 0, Sodium 136, Potassium 3.6, Chloride 101, Carbon Dioxide 22.0, Anion Gap 13, BUN 13, Creatinine 0.74, Estim Creat Clear Calc 82.38, Est GFR(MDRD) Non-Af 91, BUN/Creatinine Ratio 16.9, Glucose 125 H, Calcium 9.6, Troponin T High Sens < 6 05/16/25 13:25: Troponin T Hi Sens 2 Hr < 6 Imaging Radiology Impression Chest X-Ray 05/16/25 12:25 IMPRESSION: No acute process is identified in the chest. Reading [facility] 05/16/25 13:04 IMPRESSION: No acute intracranial pathology. Reading Location: [facility] Assessment & Plan Assessment/Plan (1) Chest pain: PLAN: Plan #Chest pain -EKG with a rate of 72 and nonspecific changes but without any depressions or elevations in ST segment -Trop negative x 2 -Admit to telemetry -Echo ordered -Aspirin -Statin -Lipid panel in AM -Stress test ordered for AM #Left sided numbness and tingling -Admit to tele - Patient reports intermittent left arm and leg numbness and tingling but it seems to be at random and is usually just below the knee on the left side and not her whole leg or necessarily her whole arm, CT head unremarkable, discussed doing MRI of brain and C-spine for further evaluation given the unusual symptomshowever patient reports she does very very poorly with MRIs, offered medicine tohelpwith anxiety and patient declined - Will obtain CTA head and neck to see if there is anything hemodynamically significant that could be contributing - If symptoms persist could consider MRI in the a.m. if patient does become agreeable - Symptoms are waxing and waning at random with varying amount of each limb affected each time, neuroexam completely normal and thus far imaging within normal limits however given these complaints will concomitantly undergo TIA workup -NIH q4hr -asa, statin as above -Echo as above -PT/OT/Speech eval -Teleneuro consult ordered #Hypertension - Continue medications #GERD -Continue PPI #Type 2 diabetes mellitus -Glucose checks and sliding scale insulin #Hx gastric ulcers -Cont home sucralfate #DVT ppx: Lovenox subcu Marilin Yuen MD Charges/Coding Visit Charges Inpatient E&M: 78068 Init Hosp L2 05/16/25 1731 Cosigner Signature (if applicable): CC: Dr. Bret Gomez MD; Dr. Marilin Yuen MD~ Signed [facility]06-23-2025 Discharge summary Author Aleks Scruggs [facility] Note Date/Time May 16, 2025 3:03 pm [facility] Medical Records Department [address] [place] [address] Emergency Department Summary 05/16/25 MR#: [id number] Acct: [id number] Name: QI PHILIPPE Rep #:[id number] : 1965 60 From: Aleks Scruggs DO PCP: Dr. Bret Gomez MD Status:REG ER Location: ED HPI History of Present [...] previous heart attacks and open heart surgeries. [facility] Medical History Abdominal pain Fatty liver [...] following commands knew that she was at [facility] year is 2024 Skin: Warm, dry, [...] HEART Score for Major Cardiac Events from [employer] on 05/16/2025 All calculations should be rechecked [...] with a rate of 72 bpm with SC interval 144. Patient's chest x-ray reviewed by [...] (Auto) 73.0 H Lymph % (Auto) 20.8 Pickett % (Auto) 5.3 Eos % (Auto) 0.3 [...] identified in the chest. Reading Location: [facility] Brain CT 05/16/25 13:04 IMPRESSION: No acute intracranial pathology. Reading Location: [facility] Discharge Plan Triage Chief Complaint: Chest Pain [...] MD [Primary Care Provider] - Print Language: Liberian Disposition Disposition: Acute Care Hospital [facility] What to do if you have Problems For any increased pain, shortness of breath, bleeding, nausea or vomiting, chestpain, or any unexpected problems, contact your Primary Care Provider. Call [facility] ([phone]) or report to the closest Emergency Room. Call 911 if necessary. 05/16/25 1503 <Electronically signed by Aleks Scruggs DO> Cosigner Signature (if applicable): CC: Dr. Bret Gomez MD ~ Signed [facility] Work Phone: 1(359) 100-687206-23-2025 Discharge summary [facility] Medical Records Department [address] [place] [address] Emergency Department Summary 05/16/25 MR#: [id number] Acct: [id number] Name: QI PHILIPPE Rep #:[id number] : 1965 60 From: Aleks Scruggs DO PCP: Dr. Bret Gomez MD Status:REG ER Location: ED HPI History of Present [...] that she had a stress test manyyears agobut has not had one since. She states that her family does have a history of heart disease with previous heart attacks and open heart surgeries. [facility] Medical History Abdominal pain Fatty liver [...] following commands knew that she was at [facility] year is 2024 Skin: Warm, dry, [...] with a rate of 72 bpm with SC interval 144. Patient's chest x-ray reviewed by myself and by radiology showed no acute cardiopulmonary processes. Patient CT head brain without contrast showed no acute intracranial pathology. At this point time do believe the patient will warrant admission for stress testing given her chestdiscomfort radiating to her left shoulder that has [...] RDW Std Deviation 37.5 RDW Coeff of Ol[place] 11.9 Plt Count 328 MPV 9.9 Immature Gran % (Auto) 0.300 Neut % (Auto) 73.0 H Lymph % (Auto) 20.8 Pickett % (Auto) 5.3 Eos % (Auto) 0.3 [...] is identified in the chest. Reading Location: [facility] Brain CT 05/16/25 13:04 IMPRESSION: No acute intracranial pathology. Reading Location: [facility] Discharge Plan Triage Chief Complaint: Chest [...] MD [Primary Care Provider] - Print Language: Liberian Disposition Disposition: Acute Care Hospital [facility] What to do if you have Problems For any increased pain, shortness of breath, bleeding, nausea or vomiting, chestpain, or any unexpected problems, contact your Primary Care Provider. Call [facility] ([phone]) or report tothe closest Emergency Room. Call 911 if necessary. 05/16/25 1503 Cosigner Signature (if applicable): CC: Dr. Bret Gomez MD ~ Signed [facility]06-23-2025 Radiology Diagnostic study note [facility] Imaging Services [address] [place], [place] [address] Brain/Head without Contrast MR#: [id number] Acct: [id number] Name: QI PHILIPPE Rep #: [id number] : 1965 F 60 From: Genaro Carrillo MD PCP: Dr. Bret Gomez MD Status: REG ER Study:Brain/Head without Contrast Date of Exa m: 05/16/25 Exam# [id number] Ordering Dr: Ese Scruggs DO EXAM: NONCONTRAST [...] IMPRESSION: No acute intracranial pathology. [facility] CC: Dr. Bret Gomez MD; Dr. Aleks Scruggs DO ~ Client Manager Large Law: Signed [facility]06-23-2025 Discharge summary Author Aleks Scruggs [facility] Note Date/Time May 16, 2025 3:03 pm [facility] Medical Records Department [address] [place] [address] Emergency Department Summary 05/16/25 MR#: [id number] Acct: [id number] Name: QI PHILIPPE Rep #:[id number] : 1965 60 From: Aleks Scruggs DO PCP: Dr. Bret Gomez MD Status:REG ER Location: ED HPI History of Present [...] previous heart attacks and open heart surgeries. [facility] Medical History Abdominal pain Fatty liver [...] following commands knew that she was at [facility] year is 2024 Skin: Warm, dry, [...] with a rate of 72 bpm with SC interval 144. Patient's chest x-ray reviewed by [...] (Auto) 73.0 H Lymph % (Auto) 20.8 Pickett % (Auto) 5.3 Eos % (Auto) 0.3 [...] is identified in the chest. [facility] 05/16/25 13:04 IMPRESSION: No acute intracranial pathology. Reading [facility] Discharge Plan Triage Chief Complaint: Chest Pain [...] MD [Primary Care Provider] - Print Language: Liberian Disposition Disposition: Acute Care Hospital [facility] What to do if you have Problems For any increased pain, shortness of breath, bleeding, nausea or vomiting, chestpain, or any unexpected problems, contact your Primary Care Provider. Call [facility] ([phone]) or report to the closest Emergency Room. Call 911 if necessary. 05/16/25 2710 <Electronically signed by Aleks Scruggs DO> Cosigner Signature (if applicable): CC: Dr. Bret Gomez MD ~ Signed [facility] Work Phone: 1(227) 627-716406-23-2025 Radiology Diagnostic study note [facility] Imaging Services [address] [place] [address] Chest 1 View (Portable) MR#: [id number] Acct: [id number] Name: QI PHILIPPE Rep #: [id number] : 1965 F 60 From: Genaro Carrillo MD PCP: Dr. Bret Gomez MD Status: PRE ER Study:Chest 1 View (Portable) Date of Exam: 05/16/25 Exam# [id number] Ordering Dr: Provider ,Ed P. PROCEDURE: CHEST [...] Bret Gomez MD; ED PHYSICIAN PROVIDER ~ Client Manager Large Law: Signed [facility]06-11-2025 Evaluation note* Diagnosis Onset Date Resolution Status Admit Date Iliotibial band syndrome of left side acute May 04, 2025 12:49pm Left knee sprain acute April 12:49pm Chest pain acute May 16 3:33pm [facility] Work Phone: [phone]) 983-350106-11-2025 Evaluation note* Diagnosis Onset Date Resolution Status Admit Date Iliotibial band syndrome of left side acute May 04, 2025 12:49pm Left knee sprain acute April 12:49pm Chest pain acute May 16 4:00pm Paresthesia of left upper an d lower extremity acute May 16, 2025 4:00pm [facility] Work Phone: 1(461) 396-814506-11-2025 Evaluation note* Diagnosis Onset Date Resolution Status Admit Date Iliotibial band syndrome of left side acute May 04, 2025 12:49pm Left knee sprain acute April 12:49pm Chest pain resolved May 16 4:00pm Paresthesia of left upper an d lower extremity resolved May 16, 2025 4:00pm [facility] Work Phone: [phone]) 634-653706-11-2025 Evaluation note* Diagnosis Onset Date Resolution Status Admit Date Iliotibial band syndrome of left side acute May 04, 2025 12:49pm Left knee sprain acute April 12:49pm Chest pain resolved May 16 4:00pm Paresthesia of left upper an d lower extremity resolved May 16, 2025 4:00pm Iliotibial band syndrome of left side acute July 04 10:45am Left knee sprain acute June 242024 10:45am [facility] Work Phone: 1(593) 112-666508-23-2024 [facility] Medical Records Department [address] [place] [address] History Physical Exam 07/16/24 1305 MR#: [id number] Acct: [id number] Name: QI HPILIPPE Rep #: [id number] : 1965 59 From: Gumaro Friend DO PCP: Dr. Bret Gomez MD Status:[facility] Location: [place] [address] History and Physical Date of Admission: 07/16/24 [...] and oriented x3 Quality Reporting Tobacco Screening ([facility] 138) Smoking Status: Former smoker Assessment [...] Dr. Bret Gomez MD; Gumaro Sandhu DO [facility] Hospital Discharge instructions Additional Instructions Please continue [...] the ER should you have any further [facility] Work Phone: 1([phone]) 833-938412-06-2023 Procedure [facility] 10-29-2023 Procedure [facility]12-06-2023 History and physical note Author Gumaro Sandhu [facility] October 29, 2023 6:29am Note Date/Time October 29, 2023 6 :29am [facility] Medical Records Department [address] [place] [address] History & Physical Exam 10/29/23627 MR#: [id number] Acct: [id number] Name: QI PHILIPPE Rep #:[id number] : 1965 58 From: Gumaro Sandhu DO PCP: Dr. Bret Gomez MD Status:[facility] Location: [place] [address] History and Physical Date of Admission: 10/29/23 [...] gastrin 929 (0-115), chromogranin A 459 (0-101). [place] to be elevated due to PPI. Her [...] and oriented x3 Quality Reporting Tobacco Screening ([facility] 138) Smoking Status: Former smoker Assessment [...] Bret Gomez MD; Gumaro Sandhu DO~ Signed [facility] Work Phone: Evaluation note* Diagnosis Onset Date Resolution Status Diarrhea acute FH: colon cancer acute GERD (gastroesophageal reflux disease) acute Hx of colonic polyp acute RUQ pain acute Diverticula of colon acute Gastric ulcer acute GERD (gastroesophageal reflux disease) acute [facility] Work Phone: Evaluation note* Diagnosis Onset Date Resolution Status Diverticula of colon acute Gastric ulcer acute GERD (gastroesophageal reflux disease) acute [facility] Work Phone: Evaluation note* Diagnosis Onset Date Resolution Status Gastric ulcer acute Hypergastrinemia acute [facility] Work Phone: Evaluation noteNo assessment information available [facility] Work Phone: Evaluation note* Diagnosis Onset Date Resolution Status Diverticula of colon acute Gastric ulcer acute GERD (gastroesophageal reflux disease) acute Hypergastrinemia acute [facility] Work Phone: [facility] Work Phone: Reason for referral (narrative)No reason for referral [facility] Work Phone: Summary Purpose Family History Relationship Condition Age at Onset Recorded Date/T pao mother Malignant neoplasm of colon Unknown Coronary artery disease Unknown Hypertension Unknown aunt Malignant neoplasm of colon Unknown father Coronary artery disease Unknown Advance Directives Advance Directive Response Recorded Date/ Time Advance Directives No June 11 14 4:14pm Living Will No May 01, 2022 3 :20pm Power of Straightedge Man No May 01, 2022 3:20pm Advance Directive Response Recorded Date/ Time Advance Directives No June 11 14 3:14pm Living Will No October 18, 2 022 11:21am Power of Straightedge Man No October 18, 2022 11:21am Advance Directive Response Recorded Date/ Time Advance Directives No June 11 14 4:14pm Living Will No October 18, 2 022 12:21pm Power of Straightedge Man No October 18, 2022 12:21pm Advance Directive Response Recorded Date/ Time Advance Directives No June 11 3:14pm Living Will No October 28 8:49am Power of Straightedge Man No October 28, 2023 8:49am Advance Directive Response Recorded Date/ Time Advance Directives No June 11 4:14pm Living Will No October 28 9:49am Power of Straightedge Man No October 28, 2023 9:49am Advance Directive Response Recorded Date/ Time Advance Directives No June 11 4:14pm Living Will No March 21, 2024 3:32am Power of Straightedge Man No March 21 3:32am Advance Directive Response Recorded Date/ Time Advance Directives No June 11 4:14pm Advance Directive Response Recorded Date/ Time Do you have a Healthcare Power of Straightedge Man? No May 16, 2025 12:21pm Advance Directives No June 11 4:14pm Advance Directive Response Recorded Date/ Time Do you have a Healthcare Power of Straightedge Man? No May 16, 2025 4:42pm Advance Directives No June 11 4:14pm Chief Complaint and Reason for Visit [...] Chest pain May 16, 2025 3:33 pm Chief Complaint Admit Date LEFT KNEE May 04, 2025 12:4 9pm Room 3 May 04, 2025 1:07 pm CHEST PAIN May 16, 2025 4:00 pm CHEST PAIN May 17, 2025 9:45 am CHEST PAIN May 17, 2025 2:08 pm CHEST PAIN May 18, 2025 8:45 am Reason for Visit Admit Date Iliotibial band syndrome of left side Ju ne 2024 12:49pm Left knee sprain May 04, 2025 12:4 9pm Chest pain May 16, 2025 4:00 pm Paresthesia of left upper and lower extr emity May 16, 2025 4:00pm Chief Complaint Admit Date LEFT KNEE May 04, 2025 12:4 9pm Room 3 May 04, 2025 1:07 pm CHEST PAIN May 16, 2025 4:00 pm CHEST PAIN May 17, 2025 9:45 am CHEST PAIN May 17, 2025 2:08 pm CHEST PAIN May 18, 2025 8:45 am NODULE June 06, 2025 11:2 5am NODULE June 10, 2025 1:11 pm Chief Complaint Admit Date LEFT KNEE May 04, 2025 12:4 9pm Room 3 May 04, 2025 1:07 pm CHEST PAIN May 16, 2025 4:00 pm CHEST PAIN May 17, 2025 9:45 am CHEST PAIN May 17, 2025 2:08 pm CHEST PAIN May 18, 2025 8:45 am NODULE June 06, 2025 11:2 5am NODULE June 10, 2025 1:11 pm LEFT KNEE July 04, 2025 10 :45am Chief Complaint Admit Date LEFT KNEE May 04, 2025 12:4 9pm Room 3 May 04, 2025 1:07 pm CHEST PAIN May 16, 2025 4:00 pm CHEST PAIN May 17, 2025 9:45 am CHEST PAIN May 17, 2025 2:08 pm CHEST PAIN May 18, 2025 8:45 am NODULE June 06, 2025 11:2 5am NODULE June 10, 2025 1:11 pm LEFT KNEE July 04, 2025 10 :45am THYROID NODULE July 12, 2025 12 :33pm Reason for Visit Admit Date Iliotibial band syndrome of left side Ju ne 2024 12:49pm Left knee sprain May 04, 2025 12:4 9pm Chest pain May 16, 2025 4:00 pm Paresthesia of left upper and lower extr emity May 16, 2025 4:00pm Iliotibial band syndrome of left side Au 2024 10:45am Left knee sprain July 04, 2025 10 :45am Additional Source Comments INFORMATION SOURCE (unrecogn ized section and content) DATE CREATED AUTHOR 04/07/2020 [employer] DATE CREATED AUTHOR AUTHOR'S ORGANIZ ATION 07/10/2025 [facility] Care Teams (unrecognized sec tion and [...] Bret Gomez MD Primary Care Provider Active Irena Olmos NP-C Attending Provider, Referring Pr ovider Active Team Status: Inactive Member Role Status Dates Dr. Bret Gomez MD Primary Care Provider Active Isabela Drake NP-C Attending Provider, Referr ing Provider Active Team [...] Provider Active St art: May 04, 2025 Coty Orourke NP-Crissy Attending Provider Active Start: May 04, 2025 Team Status: Inactive Member Role Status Dates Dr. Bret Gomez MD Primary Care Provider Active Start: May 16, 2025 End: May 18, 2025 Dr. Aleks Scruggs DO Emergency Provider Active Start: May 16, 2025 End: May 18, 2025 Dr. Marilin Yuen MD Admit Provider Active Star t: May 16, 2025 End: May 18, 2025 Dr. Marilin Yuen MD Other Provider Active Star t: May 16, 2025 End: May 18, 2025 Devante James MD Other Provider Active Start: 2024 End: May 18, 2025 Dr. Dani Mendez MD Other Provider Active Start: May 16, 2025 End: May 18, 2025 Samantha Joseph MD Other Provider Active Start : May 16, 2025 End: May 18, 2025 Dr. Mariama Flnaagan DO Other Provider Active St art: May 16, 2025 End: May 18, 2025 Dr. Debora Mcclendon MD Other Provider Active Start: May 16, 2025 End: May 18, 2025 Dr. Glenn Aguayo MD Other Provider Active Sta rt: May 16, 2025 End: May 18, 2025 Dr. Ondina Peng MD Other Provider Active Start : May 16, 2025 End: May 18, 2025 Dr. Samson Darling MD Other Provider Active Start: May 16, 2025 End: May 18, 2025 Dr. Toby Carney MD Other Provider Active Start : May 16, 2025 End: May 18, 2025 Dr. Vidal Subramanian MD Other Provider Active Sta rt: May 16, 2025 End: May 18, 2025 Edita Tamayo MD Other Provider Active Start : May 16, 2025 End: May 18, 2025 Dr. Augustus Glaser MD Other Provider Active St art: May 16, 2025 End: May 18, 2025 Dr. Marga Cox MD Other Provider Active Start : May 16, 2025 End: May 18, 2025 Dr. Betina Gore MD Other Provider Active Sta rt: May 16, 2025 End: May 18, 2025 Dr. Jose Alberto John MD Other Provider Active Start: May 16, 2025 End: May 18, 2025 Dr. Zak Chisholm MD Other Provider Active St art: May 16, 2025 End: May 18, 2025 Dr. Ambar Birmingham MD Other Provider Active Star t: May 16, 2025 End: May 18, 2025 Dr. Jai Espitia MD Other Provider Active St art: May 16, 2025 End: May 18, 2025 Dr. Tiffanie Nolasco MD Other Provider Active Start: May 16, 2025 End: May 18, 2025 Dorothy Barcenas MD Other Provider Active Start: May 16, 2025 End: May 18, 2025 Dr. Bret Cisneros DO Attending Provider Active Start: May 16, 2025 End: May 18, 2025 Team Status: Active Member Role Status Dates Dr. Bret Gomez MD Primary Care Provider Active Start: May 17, 2025 Dr. Aleks Scruggs DO Emergency Provider Active Start: May 17, 2025 Dr. Marilin Yuen MD Admit Provider Active Star t: May 17, 2025 Dr. Marilin Yuen MD Other Provider Active Star t: May 17, 2025 Devante James MD Other Provider Active Start: 2024 Dr. Dani Mendez MD Other Provider Active Start: May 17, 2025 Samantha Joseph MD Other Provider Active Start : May 17, 2025 Dr. Mariama Flanagan DO Other Provider Active St art: May 17, 2025 Dr. Debora Mcclendon MD Other Provider Active Start: May 17, 2025 Dr. Glenn Aguayo MD Other Provider Active Sta rt: May 17, 2025 Dr. Ondina Peng MD Other Provider Active Start : May 17, 2025 Dr. Samson Darling MD Other Provider Active Start: May 17, 2025 Dr. Toby Carney MD Other Provider Active Start : May 17, 2025 Dr. Vidal Subramanian MD Other Provider Active Sta rt: May 17, 2025 Edita Tamayo MD Other Provider Active Start : May 17, 2025 Dr. Augustus Glaser MD Other Provider Active St art: May 17, 2025 Dr. Marga Cox MD Other Provider Active Start : May 17, 2025 Dr. Betina Gore MD Other Provider Active Sta rt: May 17, 2025 Dr. Jose Alberto John MD Other Provider Active Start: May 17, 2025 Dr. Zak Chisholm MD Other Provider Active St art: May 17, 2025 Dr. Ambar Birmingham MD Other Provider Active Star t: May 17, 2025 Dr. Jai Espitia MD Other Provider Active St art: May 17, 2025 Dr. Tiffanie Nolasco MD Other Provider Active Start: May 17, 2025 Dorothy Barcenas MD Other Provider Active Start: May 17, 2025 Dr. Bret Cisneros DO Attending Provider Active Start: May 17, 2025 Dr. Bret Cisneros DO Other Provider Active Star t: May 17, 2025 Team Status: Active Member Role Status Dates Dr. Bret Gomez MD Primary Care Provider Active Start: May 17, 2025 Dr. Aleks Scruggs DO Emergency Provider Active Start: May 17, 2025 Dr. Marilin Yuen MD Admit Provider Active Star t: May 17, 2025 Dr. Marilin Yuen MD Other Provider Active Star t: May 17, 2025 Devante James MD Other Provider Active Start: 2024 Dr. Dani Mendez MD Other Provider Active Start: May 17, 2025 Samantha Joseph MD Other Provider Active Start : May 17, 2025 Dr. Mariama Flanagan DO Other Provider Active St art: May 17, 2025 Dr. Debora Mcclendon MD Other Provider Active Start: May 17, 2025 Dr. Glenn Aguayo MD Other Provider Active Sta rt: May 17, 2025 Dr. Ondina Peng MD Other Provider Active Start : May 17, 2025 Dr. Samson Darling MD Other Provider Active Start: May 17, 2025 Dr. Toby Carney MD Other Provider Active Start : May 17, 2025 Dr. Vidal Subramanian MD Other Provider Active Sta rt: May 17, 2025 Edita Tamayo MD Other Provider Active Start : May 17, 2025 Dr. Augsutus Glaser MD Other Provider Active St art: May 17, 2025 Dr. Marga Cox MD Other Provider Active Start : May 17, 2025 Dr. Betina Gore MD Other Provider Active Sta rt: May 17, 2025 Dr. Jose Alberto John MD Other Provider Active Start: May 17, 2025 Dr. Zak Chisholm MD Other Provider Active St art: May 17, 2025 Dr. Ambar Birmingham MD Other Provider Active Star t: May 17, 2025 Dr. Jai Espitia MD Other Provider Active St art: May 17, 2025 Dr. Tiffanie Nolasco MD Other Provider Active Start: May 17, 2025 Dorothy Barcenas MD Other Provider Active Start: May 17, 2025 Dr. Bret Cisneros DO Other Provider Active Star t: May 17, 2025 Dr. Kaiser Cee MD Attending Provider Active S tart: May 17, 2025 Team Status: Active Member Role Status Dates Dr. Bret Gomez MD Primary Care Provider Active Start: May 18, 2025 Dr. Aleks Scruggs DO Emergency Provider Active Start: May 18, 2025 Dr. Marilin Yuen MD Admit Provider Active Star t: May 18, 2025 Dr. Marilin Yuen MD Other Provider Active Star t: May 18, 2025 Devante James MD Other Provider Active Start: 2024 Dr. Dani Mendez MD Other Provider Active Start: May 18, 2025 Samantha Joseph MD Other Provider Active Start : May 18, 2025 Dr. Mariama Flanagan DO Other Provider Active St art: May 18, 2025 Dr. Debora Mcclendon MD Other Provider Active Start: May 18, 2025 Dr. Glenn Aguayo MD Other Provider Active Sta rt: May 18, 2025 Dr. Ondina Peng MD Other Provider Active Start : May 18, 2025 Dr. Samson Darling MD Other Provider Active Start: May 18, 2025 Dr. Toby Carney MD Other Provider Active Start : May 18, 2025 Dr. Vidal Subramanian MD Other Provider Active Sta rt: May 18, 2025 Edita Tamayo MD Other Provider Active Start : May 18, 2025 Dr. Augustus Glaser MD Other Provider Active St art: May 18, 2025 Dr. Marga Cox MD Other Provider Active Start : May 18, 2025 Dr. Betina Gore MD Other Provider Active Sta rt: May 18, 2025 Dr. Jose Alberto John MD Other Provider Active Start: May 18, 2025 Dr. Zak Chisholm MD Other Provider Active St art: May 18, 2025 Dr. Ambar Birmingham MD Other Provider Active Star t: May 18, 2025 Dr. Jai Espitia MD Other Provider Active St art: May 18, 2025 Dr. Tiffanie Nolasco MD Other Provider Active Start: May 18, 2025 Dorothy Barcenas MD Other Provider Active Start: May 18, 2025 Dr. Bret Cisneros DO Attending Provider Active Start: May 18, 2025 Dr. Bret Cisneros DO Other Provider Active Star t: May 18, 2025 Team Status: Active Member Role/Relationship Status Dates Dr. Bret Gomez MD Primary Care Provider Active Team Status: Inactive Member Role/Relationship Status Dates Dr. Bret Gomez MD Primary Care Provider Active Start: May 04, 2025 End: May 04, 2025 Dr. Bret Gomez MD Referring Provider Active St art: May 04, 2025 End: May 04, 2025 NICOLE Patterson Attending Provider Active Start: May 04, 2025 End: May 04, 2025 Team Status: Inactive Member Role/Relationship Status Dates Dr. Bret Gomez MD Primary Care Provider Active Start: May 04, 2025 End: May 04, 2025 Dr. Kaiser Cee MD Attending Provider Active S tart: May 04, 2025 End: May 04, 2025 Team Status: Inactive Member Role/Relationship Status Dates Dr. Bret Gomez MD Primary Care Provider Active Start: May 16, 2025 End: May 18, 2025 Dr. Aleks Scruggs DO Emergency Provider Active Start: May 16, 2025 End: May 18, 2025 Dr. Marilin Yuen MD Admit Provider Active Star t: May 16, 2025 End: May 18, 2025 Dr. Marilin Yuen MD Other Provider Active Star t: May 16, 2025 End: May 18, 2025 Devante James MD Other Provider Active Start: 2024 End: May 18, 2025 Dr. Dani Mendez MD Other Provider Active Start: May 16, 2025 End: May 18, 2025 Samantha Joseph MD Other Provider Active Start : May 16, 2025 End: May 18, 2025 Dr. Mariama Flanagan DO Other Provider Active St art: May 16, 2025 End: May 18, 2025 Dr. Debora Mcclendon MD Other Provider Active Start: May 16, 2025 End: May 18, 2025 Dr. Glenn Aguayo MD Other Provider Active Sta rt: May 16, 2025 End: May 18, 2025 Dr. Ondina Peng MD Other Provider Active Start : May 16, 2025 End: May 18, 2025 Dr. Samson Darling MD Other Provider Active Start: May 16, 2025 End: May 18, 2025 Dr. Toby Carney MD Other Provider Active Start : May 16, 2025 End: May 18, 2025 Dr. Vidal Subramanian MD Other Provider Active Sta rt: May 16, 2025 End: May 18, 2025 Edita Tamayo MD Other Provider Active Start : May 16, 2025 End: May 18, 2025 Dr. Augustus Glaser MD Other Provider Active St art: May 16, 2025 End: May 18, 2025 Dr. Marga Cox MD Other Provider Active Start : May 16, 2025 End: May 18, 2025 Dr. Betina Gore MD Other Provider Active Sta rt: May 16, 2025 End: May 18, 2025 Dr. Jose Alberto John MD Other Provider Active Start: May 16, 2025 End: May 18, 2025 Dr. Zak Chisholm MD Other Provider Active St art: May 16, 2025 End: May 18, 2025 Dr. Ambar Birmingham MD Other Provider Active Star t: May 16, 2025 End: May 18, 2025 Dr. Jai Espitia MD Other Provider Active St art: May 16, 2025 End: May 18, 2025 Dr. Tiffanie Nolasco MD Other Provider Active Start: May 16, 2025 End: May 18, 2025 Dorothy Barcenas MD Other Provider Active Start: May 16, 2025 End: May 18, 2025 Dr. Bret Cisneros DO Attending Provider Active Start: May 16, 2025 End: May 18, 2025 Team Status: Active Member Role/Relationship Status Dates Dr. Bret Gomez MD Primary Care Provider Active Start: May 17, 2025 Dr. Aleks Scruggs DO Emergency Provider Active Start: May 17, 2025 Dr. Marilin Yuen MD Admit Provider Active Star t: May 17, 2025 Dr. Marilin Yuen MD Other Provider Active Star t: May 17, 2025 Devante James MD Other Provider Active Start: 2024 Dr. Dani Mendez MD Other Provider Active Start: May 17, 2025 Samantha Joseph MD Other Provider Active Start : May 17, 2025 Dr. Mariama Flanagan DO Other Provider Active St art: May 17, 2025 Dr. Debora Mcclendon MD Other Provider Active Start: May 17, 2025 Dr. Glenn Aguayo MD Other Provider Active Sta rt: May 17, 2025 Dr. Ondina Peng MD Other Provider Active Start : May 17, 2025 Dr. Samson Darling MD Other Provider Active Start: May 17, 2025 Dr. Toby Carney MD Other Provider Active Start : May 17, 2025 Dr. Vidal Subramanian MD Other Provider Active Sta rt: May 17, 2025 Edita Tamayo MD Other Provider Active Start : May 17, 2025 Dr. Augustus Glaser MD Other Provider Active St art: May 17, 2025 Dr. Marga Cox MD Other Provider Active Start : May 17, 2025 Dr. Betina Gore MD Other Provider Active Sta rt: May 17, 2025 Dr. Jose Alberto John MD Other Provider Active Start: May 17, 2025 Dr. Zak Chisholm MD Other Provider Active St art: May 17, 2025 Dr. Ambar Birmingham MD Other Provider Active Star t: May 17, 2025 Dr. Jai Espitia MD Other Provider Active St art: May 17, 2025 Dr. Tiffanie Nolasco MD Other Provider Active Start: May 17, 2025 Dorothy Barcenas MD Other Provider Active Start: May 17, 2025 Dr. Bret Cisneros DO Attending Provider Active Start: May 17, 2025 Dr. Bret Cisneros DO Other Provider Active Star t: May 17, 2025 Team Status: Active Member Role/Relationship Status Dates Dr. Bret Gomez MD Primary Care Provider Active Start: May 17, 2025 Dr. Aleks Scruggs DO Emergency Provider Active Start: May 17, 2025 Dr. Marilin Yuen MD Admit Provider Active Star t: May 17, 2025 Dr. Marilin Yuen MD Other Provider Active Star t: May 17, 2025 Devante James MD Other Provider Active Start: 2024 Dr. Dani Mendez MD Other Provider Active Start: May 17, 2025 Samantha Joseph MD Other Provider Active Start : May 17, 2025 Dr. Mariama Flanagan DO Other Provider Active St art: May 17, 2025 Dr. Debora Mcclendon MD Other Provider Active Start: May 17, 2025 Dr. Glenn Aguayo MD Other Provider Active Sta rt: May 17, 2025 Dr. Ondina Peng MD Other Provider Active Start : May 17, 2025 Dr. Samson Darling MD Other Provider Active Start: May 17, 2025 Dr. Toby Carney MD Other Provider Active Start : May 17, 2025 Dr. Vidal Subramanian MD Other Provider Active Sta rt: May 17, 2025 Edita Tamayo MD Other Provider Active Start : May 17, 2025 Dr. Augustus Glaser MD Other Provider Active St art: May 17, 2025 Dr. Marga Cox MD Other Provider Active Start : May 17, 2025 Dr. Betina Gore MD Other Provider Active Sta rt: May 17, 2025 Dr. Jose Alberto John MD Other Provider Active Start: May 17, 2025 Dr. Zak Chisholm MD Other Provider Active St art: May 17, 2025 Dr. Ambar Birmingham MD Other Provider Active Star t: May 17, 2025 Dr. Jai Espitia MD Other Provider Active St art: May 17, 2025 Dr. Tiffanie Nolasco MD Other Provider Active Start: May 17, 2025 Dorothy Barcenas MD Other Provider Active Start: May 17, 2025 Dr. Bret Cisneros DO Other Provider Active Star t: May 17, 2025 Dr. Kaiser Cee MD Attending Provider Active S tart: May 17, 2025 Team Status: Active Member Role/Relationship Status Dates Dr. Bret Gomez MD Primary Care Provider Active Start: May 18, 2025 Dr. Aleks Scruggs DO Emergency Provider Active Start: May 18, 2025 Dr. Marilin Yuen MD Admit Provider Active Star t: May 18, 2025 Dr. Marilin Yuen MD Other Provider Active Star t: May 18, 2025 Devante James MD Other Provider Active Start: 2024 Dr. Dani Mendez MD Other Provider Active Start: May 18, 2025 Samantha Joseph MD Other Provider Active Start : May 18, 2025 Dr. Mariama Flanagan DO Other Provider Active St art: May 18, 2025 Dr. Debora Mcclendon MD Other Provider Active Start: May 18, 2025 Dr. Glenn Aguayo MD Other Provider Active Sta rt: May 18, 2025 Dr. Ondina Peng MD Other Provider Active Start : May 18, 2025 Dr. Samson Darling MD Other Provider Active Start: May 18, 2025 Dr. Toby Carney MD Other Provider Active Start : May 18, 2025 Dr. Vidal Subramanian MD Other Provider Active Sta rt: May 18, 2025 Edita Tamayo MD Other Provider Active Start : May 18, 2025 Dr. Augustus Glaser MD Other Provider Active St art: May 18, 2025 Dr. Marga Cox MD Other Provider Active Start : May 18, 2025 Dr. Betina Gore MD Other Provider Active Sta rt: May 18, 2025 Dr. Jose Alberto John MD Other Provider Active Start: May 18, 2025 Dr. Zak Chisholm MD Other Provider Active St art: May 18, 2025 Dr. Ambar Birmingham MD Other Provider Active Star t: May 18, 2025 Dr. Jai Espitia MD Other Provider Active St art: May 18, 2025 Dr. Tiffanie Nolasco MD Other Provider Active Start: May 18, 2025 Dorothy Barcenas MD Other Provider Active Start: May 18, 2025 Dr. Bret Cisneros DO Attending Provider Active Start: May 18, 2025 Dr. Bret Cisneros DO Other Provider Active Star t: May 18, 2025 Team Status: Inactive Member Role/Relationship Status Dates Dr. Bret Gomez MD Primary Care Provider Active Start: June 06, 2025 End: June 06, 2025 Dr. Bret Gomez MD Attending Provider Active St art: June 06, 2025 End: June 06, 2025 Dr. Bret Gomez MD Referring Provider Active St art: June 06, 2025 End: June 06, 2025 Team Status: Active Member Role/Relationship Status Dates Dr. Bret Gomez MD Primary Care Provider Active Start: June 10, 2025 Dr. Bret Gomez MD Attending Provider Active St art: June 10, 2025 Dr. Bret Gomez MD Referring Provider Active St art: June 10, 2025 Team Status: Inactive Member Role/Relationship Status Dates Dr. Bret Gomez MD Primary Care Provider Active Start: June 10, 2025 End: June 10, 2025 Dr. Bret Gomez MD Attending Provider Active St art: June 10, 2025 End: June 10, 2025 Dr. Bret Gomez MD Referring Provider Active St art: June 10, 2025 End: June 10, 2025 Team Status: Inactive Member Role/Relationship Status Dates Dr. Bret Gomez MD Primary Care Provider Active Start: July 04, 2025 End: July 04, 2025 Dr. Bret Gomez MD Referring Provider Active St art: July 04, 2025 End: July 04, 2025 NICOLE Patterson Attending Provider Active Start: July 04, 2025 End: July 04, 2025 Team Status: Inactive Member Role/Relationship Status Dates Dr. Bret Gomez MD Primary Care Provider Active Start: July 12, 2025 End: July 12, 2025 Dr. Bret Gomez MD Referring Provider Active St art: July 12, 2025 End: July 12, 2025 Dr. Marquise Zee MD Attending Provider Active Start: July 12, 2025 End: July 12, 2025 Goals (unrecognized section and content) Goals [...] BE BASED ON THE PRIMARY CLINICAL RECORDS. [facility]. provides no warranty or guarantee of the accuracy or completeness of information in this document.
== END | disposition home or self-care (01) ==
LOC: LABSPEC 07-13 07:42
PROVIDERS: PCP Family Medicine; Referring Provider Surgery; Visit Provider Surgery
DX: E04.1 Nontoxic single thyroid nodule (principal)
CPT/HCPCS: 88108; 88305; 88313

== ENCOUNTER → 2025-09-21 | Outpatient (CLI) | payer OTHER, SELFPAY ==
--- NOTE | 2025-09-21 13:40 | CT_ITS ---
PROCEDURE: CHEST WITH CONTRAST 09/21/2025 REASON FOR EXAM: SOLITARY PULMONARY NODULE Follow-up examination. TECHNIQUE: Procedure Code: CTCHW Modality: CT Procedure: CHEST WITH CONTRAST Coronal and Sagittal reconstruction series were provided. CONTRAST: None One or more dose reduction techniques were used (e.g., Automated exposure control, adjustment of the mA and/or kV according to patient size, use of iterative reconstruction technique). RADIATION DOSE SUMMARY: CTDlvol: 14.6 mGy DLP: 465.85 mGycm COMPARISON: Prior study dated June 10, 2025. FINDINGS: Hardware: None Tiny subcentimeter nodule in the upper pole of the left lobe of the thyroid. This is unchanged. Lymph nodes: No significant lymphadenopathy is seen. Heart and Vasculature: The heart is nonenlarged. No coronary artery calcification. Lungs and Airways: The previously seen noncalcified nodule in the peripheral lateral aspect of the left upper lobe has decreased in size. It presently measures 7.8 mm by 5.7 mm. Stable faintly seen 2 mm noncalcified nodule in the peripheral lateral aspect of the right lower lobe as seen on axial image number 87. Pleura: No pleural effusion. Upper Abdomen: Unremarkable Bones: Degenerative changes of the thoracic spine. CT/Chest WITH Contrast IMPRESSION: Coronary artery calcification (CAC) is is absent Slight decrease in size of the previously seen nodule in the left upper lobe. A repeat CT scan is recommended in 6 months to assess stability. Reading Location: [id number]
[2025-09-21 14:04] LABS: CREATININE FINGERSTICK < 1.0 mg/dL (0.55-1.02); EGFR FINGERSTICK > 60.0000 mL/min (>60)
== END | disposition home or self-care (01) ==
PROVIDERS: PCP Family Medicine; Referring Provider Family Medicine; Visit Provider Family Medicine
DX: R91.1 Solitary pulmonary nodule (principal); I10 Essential (primary) hypertension
CPT/HCPCS: 71260; Q9967

== ENCOUNTER → 2025-09-23 | Outpatient (CLI) | payer OTHER, SELFPAY ==
--- NOTE | 2025-09-23 10:31 | BI_ITS ---
EXAM: SCRN MAMM (CAD)W/SANDY BILAT DATE: 09/23/2025 CLINICAL HISTORY: F, Age 60 y/o , SCREENING TECHNIQUE: Procedure Code: [id number] Modality: MG Procedure: SCRN MAMM (CAD)W/SANDY BILAT COMPARISON: Prior exam(s) dated 10/27/2023, 09/25/2022. FINDINGS: TISSUE DENSITY: There are scattered areas of fibroglandular density. Bilateral Breast Mammographic Findings: No significant masses, calcifications or other abnormalities are identified. BI/SCRN MAMM (CAD)W/SANDY BILAT IMPRESSION: There is no mammographic evidence of malignancy. OVERALL FINAL ASSESSMENT BI-RADS 1: NEGATIVE. RECOMMENDATION: Routine annual follow-up in 1 Year Additional Recommendation none A letter with findings and recommendations will be mailed to the patient. Reading Location: [id number]
== END | disposition home or self-care (01) ==
LOC: OPBI 10:29
PROVIDERS: PCP Family Medicine; Referring Provider Family Medicine; Visit Provider Family Medicine
DX: Z12.31 Encounter for screening mammogram for malignant neoplasm of breast (principal)
CPT/HCPCS: 77063; 77067